=== PATIENT | female | born 1935 | race Caucasian/White ===

== ENCOUNTER → 2016-03-23 | Outpatient (CLI) | payer OTHER ==
[~2016-03-23] MED LIST: ALBU1AER9 INH; ALPR-411 PO; AMLO-114 PO; ANT25 PO; ASPCH81; B-COCAP2 PO; CALC500C70 PO; CEPH500C PO; CLC100 PO; CRF1 PO; CTP1CL PO; GABA-113 PO; GLC5 PO; LISI5TAB3 PO; LSX20 PO; METO100T14 PO; NITR0.4S UT; OMEP40CA PO; SIMV40TA2 PO; TRAM-10 PO; [UNRECOGNIZED DRUG - REMARK] PO
[2016-03-23 17:36] LABS: BASO % 0.2 %; BASO ABS # 0.02 K/uL (0-0.2); COMPLETE YES; EOS % 2.4 %; HEMATOCRIT 37.3 % (37-47); IG% 0.2 %; LYMPH % 28.5 %; LYMPH ABS # 2.57 K/uL (1.2-3.4); MEAN CELL VOLUME 89.7 fL (80-100); MEAN CORPUSCULAR HEMOGLOBIN 29.6 pg (25-34); MEAN PLATELET VOLUME 12.1 fL (7.4-10.4); MONO % 7.2 %; NEUT % 61.5 %; PLATELET COUNT 176 K/uL (130-400); RED BLOOD COUNT 4.16 M/uL (4.2-5.4); WHITE BLOOD COUNT 9.01 K/uL (4.8-10.8)
[2016-03-23 18:04] LABS: AST/SGOT 21 U/L (15-37); BLOOD UREA NITROGEN 31 mg/dl (7-18); CALCIUM 8.9 mg/dl (8.5-10.1); CARBON DIOXIDE 32 mmol/L (21-32); CHLORIDE 103 mmol/L (98-107); GLUCOSE 128 mg/dl (70-99); POTASSIUM 4.3 mmol/L (3.5-5.1); SODIUM 142 mmol/L (136-145)
[2016-03-23 18:05] LABS: URINE APPEARANCE CLOUDY (CLEAR); URINE COLOR DK YELLOW; URINE EPITHELIAL CELL AUTO >30 /lpf (0-5); URINE NITRITE NEG (NEG); URINE SPECIFIC GRAVITY 1.026 (1.000-1.030); UROBILINOGEN NEG (NEG); ZZUR CULT IF INDIC CLEAN CATCH NO
[2016-03-23 18:11] LABS: MANUAL MICROSCOPIC REQUIRED? NO; REVIEW REQ? NO; URINE BILIRUBIN NEG (NEG)
[2016-03-23 18:17] LABS: ALKALINE PHOSPHATASE 67 U/L (45-117); ALT/SGPT 24 U/L (12-78); CHOLESTEROL 123 mg/dl (0-200); CHOLESTEROL/HDL RATIO 2.5; HDL CHOLESTEROL 50 mg/dl; LDL CHOLESTEROL CALCULATED 48 mg/dl; RATIO 8.4 mcg/mg (0-30.0); TRIGLYCERIDES 123 mg/dl (0-150); VERY LOW DENSITY LIPOPROT CALC 25 mg/dl
[2016-03-24 06:53] LABS: ESTIMATED AVERAGE GLUCOSE 148 mg/dl; HA1C FLAG Normal (Normal)
--- NOTE | 2016-03-30 10:01 | CODING QUERY MEDICAL NECESSITY ---
SUPPORTING DIAGNOSIS NEEDED Dr. Sherman, A supporting diagnosis is required for the test/procedure performed on this patient in order for us to be reimbursed by the patient's insurance. Please provide a supporting diagnosis for the following test/procedure listed below next to the test name along with your signature. *If there is no additional diagnosis for this patient that would support the following test/procedure please document that below next to the test/procedure. Test(s)/Procedure(s) that require a supporting diagnosis: * ([id number]) VITAMIN D ASSAY DIAGNOSIS: * ([id number]) B12 VITAMIN LEVEL DIAGNOSIS: DATE OF SERVICE: 03/23/16 Provider Signature: Date: Thank you Jose Grider [facility] Information Management Once completed, please kindly fax back to [phone] For questions please call [phone]
== END | disposition home or self-care (01) ==
LOC: C.LAB1850 15:59
PROVIDERS: ATTEND Internal Medicine
DX: E11.42 Type 2 diabetes mellitus with diabetic polyneuropathy (principal); E78.5 Hyperlipidemia, unspecified; M85.80 Other specified disorders of bone density and structure, unspecified site; G62.9 Polyneuropathy, unspecified

== ENCOUNTER → 2016-07-11 | Outpatient (CLI) | payer OTHER ==
--- NOTE | 2016-07-18 08:24 | CODING QUERY MEDICAL NECESSITY ---
CQSUPPORTING DIAGNOSIS NEEDED A supporting diagnosis is required for the test/procedure performed on this patient in order for us to be reimbursed by the patient's insurance. Please provide a supporting diagnosis for the following test/procedure listed below next to the test name along with your signature. *If there is no additional diagnosis for this patient that would support the following test/procedure please document that below next to the test/procedure. Test(s)/Procedure(s) that require a supporting diagnosis: MACHO 07/11/16 BONE MINERAL DENSITY STUDY Provider Signature: Date: Thank you Adrianna Stout [facility] Information Management Once completed, please kindly fax back to [phone] For questions please call [phone]
== END | disposition home or self-care (01) ==
LOC: C.MAMM 10:34
PROVIDERS: ATTEND Internal Medicine
DX: M85.851 Other specified disorders of bone density and structure, right thigh (principal); M85.852 Other specified disorders of bone density and structure, left thigh

== ENCOUNTER → 2017-01-17 | Outpatient (CLI) | payer OTHER ==
[2017-01-17 17:44] LABS: URINE APPEARANCE TURBID (CLEAR); URINE BILIRUBIN NEG (NEG); URINE COLOR DK YELLOW; URINE EPITHELIAL CELL AUTO >30 /lpf (0-5); URINE NITRITE NEG (NEG); URINE SPECIFIC GRAVITY 1.029 (1.000-1.030); UROBILINOGEN NEG (NEG)
[2017-01-17 17:52] LABS: MANUAL MICROSCOPIC REQUIRED? NO; REVIEW REQ? NO
== END | disposition home or self-care (01) ==
LOC: C.LABBFT 11:10
PROVIDERS: ATTEND Physician Assistant Medical
DX: R32 Unspecified urinary incontinence (principal)

== ENCOUNTER → 2017-03-28 | Outpatient (CLI) | payer OTHER ==
[2017-03-28 17:52] LABS: BASO % 0.2 %; BASO ABS # 0.02 K/uL (0-0.2); EOS % 2.1 %; EOS ABS # 0.18 K/uL (0-0.5); HEMOGLOBIN 13.1 g/dL (12.0-16.0); IG# 0.02 K/uL (0.00-0.02); LYMPH % 24.4 %; MEAN CELL VOLUME 92.2 fL (80-100); MEAN CORPUSCULAR HEMOGLOBIN 30.2 pg (25-34); MEAN CORPUSCULAR HGB CONC 32.8 g/dl (32-36); MEAN PLATELET VOLUME 12.3 fL (7.4-10.4); MONO % 9.4 %; MONO ABS # 0.81 K/uL (0.11-0.59); NEUT % 63.7 %; NEUT ABS # 5.49 K/uL (1.4-6.5); PLATELET COUNT 150 K/uL (130-400); RED CELL DISTRIBUTION WIDTH CV 13.2 % (11.5-14.5); RED CELL DISTRIBUTION WIDTH SD 44.5 fL (36.4-46.3); WHITE BLOOD COUNT 8.62 K/uL (4.8-10.8)
[2017-03-28 18:55] LABS: ALBUMIN 3.5 gm/dl (3.4-5.0); ALT/SGPT 24 U/L (12-78); BLOOD UREA NITROGEN 29 mg/dl (7-18); CALCIUM 9.6 mg/dl (8.5-10.1); CARBON DIOXIDE 32 mmol/L (21-32); CHOLESTEROL 104 mg/dl (0-200); CREATININE 1.03 mg/dl (0.60-1.20); GLUCOSE 153 mg/dl (70-99); POTASSIUM 4.7 mmol/L (3.5-5.1); SODIUM 137 mmol/L (136-145)
[2017-03-28 18:58] LABS: ALKALINE PHOSPHATASE 76 U/L (45-117); AST/SGOT 21 U/L (15-37); LDL CHOLESTEROL CALCULATED 41 mg/dl; TOTAL PROTEIN 7.6 gm/dl (6.4-8.2)
[2017-03-29 06:48] LABS: HEMOGLOBIN A1C 6.8 % (4.5-5.6)
== END | disposition home or self-care (01) ==
LOC: C.LABBFT 12:12
PROVIDERS: ATTEND Internal Medicine
DX: E78.5 Hyperlipidemia, unspecified (principal); M85.80 Other specified disorders of bone density and structure, unspecified site

== ENCOUNTER → 2017-10-04 | Outpatient (CLI) | payer OTHER ==
[~2017-10-04] MED LIST changes: +ALBU18002 INH; -ALBU1AER9 INH; -ALPR-411 PO; -AMLO-114 PO; +AMLO10TA3 PO; -ANT25 PO; -ASPCH81; +ASPI81TA28 PO; +ATOR-22 PO; -B-COCAP2 PO; +B-COTAB18 PO; -CEPH500C PO; +CITA10TA4 PO; -CLC100 PO; -CRF1 PO; -CTP1CL PO; +DOCU-94 PO; -GLC5 PO; -LISI5TAB3 PO; +LOSA1TAB PO; -LSX20 PO; +METF500T5 PO; +MIRA100T PO; +MONT1TAB3 PO; -NITR0.4S UT; -OMEP40CA PO; +PANT40TA PO; -SIMV40TA2 PO; -[UNRECOGNIZED DRUG - REMARK] PO
--- NOTE | 2017-10-04 10:12 | DIAGNOSTIC IMAGING REPORT ---
L-SPINE MIN 4 VIEWS ROUTINE HISTORY: Pain M54.5 Chronic low back painM25.551 Right hip pain COMPARISON: None. FINDINGS: There is no fracture. No subluxation. Considerable degenerative disc change throughout IMPRESSION: Considerable degenerative disc change throughout. No acute process. The above report was generated using voice recognition software. It may contain grammatical, syntax or spelling errors. Electronically signed by: Sonny Harrington M.D. 10/04/2017 10:11 AM Dictated Date/Time: 10/04/2017 10:11 AM
--- NOTE | 2017-10-04 10:20 | DIAGNOSTIC IMAGING REPORT ---
R PELVIS/UNILATERAL HIP 2-3VIEWS CLINICAL HISTORY: BACK PAIN COMPARISON STUDY: None. FINDINGS: No fracture or dislocation within the pelvis or hips. Moderate cartilage space narrowing and the bile hips consistent with degenerative change. There is chondrocalcinosis within the hips. There are also moderate degenerative changes within the bilateral sacroiliac joints. Vascular calcifications are noted. IMPRESSION: 1. No fracture or dislocation within the pelvis or hips. 2. Moderate bilateral hip osteoarthritis. 3. Chondrocalcinosis. Electronically signed by: Daniel Jarrett M.D. 10/04/2017 10:19 AM Dictated Date/Time: 10/04/2017 10:04 AM
== END | disposition home or self-care (01) ==
LOC: C.RAD1850 09:44
PROVIDERS: ATTEND Physician Assistant Medical
DX: M16.0 Bilateral primary osteoarthritis of hip (principal); M11.259 Other chondrocalcinosis, unspecified hip; M47.816 Spondylosis without myelopathy or radiculopathy, lumbar region

== ENCOUNTER 2018-05-19 21:07 | Inpatient (IN) ==
--- NOTE | 2018-05-19 22:34 | XRay Report ---
RIGHT ANKLE 3 VIEWS CLINICAL HISTORY: Fall with right ankle injury. FINDINGS: 3 views of the right ankle are obtained. No prior studies are available for comparison at t he time of dictation. The skeletal structures are osteopenic. There is a minimally distracted fractur e of the medial malleolus. There is also a mildly distracted spiral fracture of the distal fibular sh aft. The ankle joint appears maintained. There is a joint effusion, and soft tissue edema is present around the ankle. Atherosclerotic calcification is noted in the regional arteries. There are large do rsal and plantar calcaneal enthesophytes. Degenerative spurring is seen along the dorsal aspect of th e tarsal bones. IMPRESSION: Bimalleolar fractures as above with associated joint effusion and soft tissue swelling. Electronically signed by: Ravi Schwarz M.D. 05/19/2018 10:32 PM
--- NOTE | 2018-05-19 22:37 | XRay Report ---
RIGHT FOOT 3 VIEWS CLINICAL HISTORY: Fall with right foot injury. FINDINGS: 3 views of the right foot are obtained. No prior studies are available for comparison at th e time of dictation. The skeletal structures are osteopenic. There is no radiographic evidence of rig ht foot fracture. Bimalleolar ankle fractures are partially imaged with soft tissue swelling in the f oot and ankle. There is an ankle joint effusion. Large dorsal and plantar calcaneal enthesophytes are observed. There is mild degenerative spurring along the dorsal aspect of the tarsal bones. Mild arth ritic change is noted at the first metatarsophalangeal joint. There is atherosclerotic calcification of the regional arteries. IMPRESSION: 1. Bimalleolar ankle fractures are noted. 2. Soft tissue swelling with no fracture seen in the right foot. 3. Osteopenia, heel spurs, and mild degenerative change as above. Electronically signed by: Ravi Schwarz M.D. 05/19/2018 10:35 PM
[2018-05-19] MEDS ORDERED: OXYCODONE/ACETAMINOPHEN 5mg/325mg TAB PO STA (23:54)
--- NOTE | 2018-05-20 00:14 | Emergency Department Note ---
Entered by Rodney Claros acting as a scribe for Sharif Danielle DO History of Present Illness General Chief complaint: Fall Stated complaint: FALL, ANKLE PAIN Time Seen by Provider: 05/19/18 21:54 Source: patient History of Present Illness Onset (ago): hour(s) 2 Location: ankle (fall) Pain Consistency: + other (episodes) Maximum Pain Intensity: 3 Relieved By: + none Associated symptoms: + denies other symptoms (head pain, neck pain) and + other (right ankle pain, dizziness) The patient is a 82 year old F who presents to the Emergency Room with complaints of episodes of falls that occurred 2 hours ago. She notes that she lives alone at a half-way apartment. She adds that there are no assistants there to help her. She states that she was getting onto a stool to get into bed and fell backwards. She notes that she was feeling dizzy before this episode occurred. She denies hitting her head or neck during this episode. She notes that after she got up from the floor, she tried to get into bed again and fell again. She states that she is currently experiencing right ankle pain. She notes that she has a history of sciatic nerve pain. Home Medications Home Medications Medication Instructions Recorded Confirmed Type albuterol sulfate HFA 90 2 puffs INH Q6H PRN 11/28/17 05/19/18 History mcg/actuation aerosol inhaler amlodipine 10 mg tablet 10 mg PO DAILY 11/28/17 05/19/18 History aspirin 81 mg tablet,delayed 81 mg PO DAILY 11/28/17 05/19/18 History release atorvastatin 20 mg tablet 20 mg PO DAILY 11/28/17 05/19/18 History calcium carbonate 600 mg (1,500 1 tab PO DAILY 11/28/17 05/19/18 History mg)-vitamin D3 200 unit tablet docusate sodium 100 mg capsule 100 mg PO QPM cap 11/28/17 05/19/18 History docusate sodium 100 mg capsule 200 mg PO QAM cap 11/28/17 05/19/18 History gabapentin 300 mg capsule 300 mg PO BID 11/28/17 05/19/18 History losartan 25 mg tablet 25 mg PO DAILY 11/28/17 05/19/18 History metformin 500 mg tablet 500 mg PO DAILY tab 11/28/17 05/19/18 History metoprolol tartrate 100 mg tablet 100 mg PO BID 11/28/17 05/19/18 History mirabegron ER 25 mg 25 mg PO DAILY 11/28/17 05/19/18 History tablet,extended release 24 hr montelukast 10 mg tablet 10 mg PO QPM 11/28/17 05/19/18 History pantoprazole 40 mg tablet,delayed 40 mg PO DAILY 11/28/17 05/19/18 History release tramadol 50 mg tablet 50 mg PO TID PRN tab 11/28/17 05/19/18 History vitamin B complex tablet 1 tab PO DAILY 11/28/17 05/19/18 History Zay's Leg Cramp 1 tab PO HS 01/11/18 05/19/18 History uxexaylb-ykgh-jva-folic acid [One 1 tab PO DAILY 01/11/18 05/19/18 History Daily For Women] naproxen sodium [Aleve] 220 mg PO DIRECTED PRN 01/11/18 05/19/18 History duloxetine 60 mg capsule,delayed 60 mg PO DAILY #30 cap 01/17/18 05/19/18 Rx release Allergies Allergy/AdvReac Type Severity Reaction Status Date / Time azelastine Allergy Intermediate elevated bp Verified 05/19/18 22:30 mivacurium Allergy Mild RASH Verified 05/19/18 22:30 citalopram Allergy Unknown UNKNOWN Verified 05/19/18 22:30 chlorpheniramine AdvReac Intermediate ELEVATED BP Verified 05/19/18 22:30 Corticosteroids AdvReac Intermediate ELEVATED BP Verified 05/19/18 22:30 (Glucocorticoids) fexofenadine AdvReac Intermediate ELEVATED BP Verified 05/19/18 22:30 fluticasone AdvReac Intermediate ELEVATED BP Verified 05/19/18 22:30 hydrocodone AdvReac Intermediate ELEVATED BP Verified 05/19/18 22:30 magnesium salicylate AdvReac Intermediate ELEVATED BP Verified 05/19/18 22:30 salicylates AdvReac Intermediate ELEVATED BP Verified 05/19/18 22:30 Past Med/Surg History Medical History Sciatic nerve pain (Chronic) Anxiety (Chronic) Arthritis (Chronic) Asthma (Chronic) CAD (coronary artery disease) (Chronic) Cataract (Chronic) Diabetes (Chronic) Diabetic neuropathy (Chronic) Hypertension (Chronic) Kidney disease (Chronic) Lumbago (Chronic) Surgical History Hx laparoscopic cholecystectomy Hx of tubal ligation Social History marital status: / marital status details: dmitriy Current Living Situation: Alone current occupational status: retired Feels Safe at Home: Yes Smoking Status: Never smoker Hx Alcohol Use: No Hx Substance Use: No Review of Systems See HPI for pertinent positives & negatives. and A total of 10 systems reviewed and were otherwise negative Physical Exam Vital Signs Vital Signs - 24 hr 05/19/18 21:13 Sepsis Recent Fever Within 48 Hours No Sepsis New/Unexplained Change in Mental Status No Sepsis Action Taken by Nursing No Action Required Pulse Rate 65 Respiratory Rate 18 Respiratory Effort / Characteristics Non-Labored Spontaneous Respiratory Depth Normal Respiratory Pattern Regular Blood Pressure 178/94 H Blood Pressure Mean 122 Blood Pressure Position Lying Pulse Oximetry 92 Oxygen Delivery Method Room Air CONSTITUTIONAL/VITAL SIGNS: Reviewed / noted above. GENERAL: Non-toxic in appearance. INTEGUMENTARY: Warm, dry, and [place]. HEAD: Normocephalic. EYES: without scleral icterus or trauma. ENT/OROPHARYNX: clear and moist. LYMPHADENOPATHY/NECK: Is supple without lymphadenopathy or meningismus. RESPIRATORY: Lungs clear and equal. CARDIOVASCULAR: Regular rate and rhythm. GI/ABDOMEN: Soft and nontender. No organomegaly or pulsatile mass. No rebound or guarding. Normal bowel sounds. EXTREMITIES: Warm and well perfused. Tenderness to palpation right foot and ankle. BACK: No CVA tenderness. NEUROLOGICAL: Intact without focal deficits. PSYCHIATRIC: normal affect. MUSCULOSKELETAL: Normally developed with good muscle tone. Course 2200: Past medical records reviewed. The patient was evaluated in room D2, and a complete history and physical examination were performed. 2310: I reviewed the patient's case with Dr. Salas, [facility] [place]. He states that the patient does not need to be admitted for surgery. 2356: I reviewed the patient's case with Dr. Melissa Cohen, [facility] Hospitalist. She will evaluate the patient for further management. Consultations Consultation #1: I reviewed the patient's case with Dr. Salas, [facility]. He states that the patient does not need to be admitted for surgery. Time: 23:10 Consultation #2: I reviewed the patient's case with Dr. Melissa Cohen, [facility] Hospitalist. She will evaluate the patient for further management. Time: 23:56 Medical Decision Making Differential Diagnosis Differential diagnosis: Etiologies such as fracture, dislocation, neurovascular compromise, compartment syndrome, soft tissue injury, as well as others were entertained. Medical Records Attestation: I reviewed the patient's medical records. Home Medications Current Medication List: was personally reviewed by me Imaging Data Radiologist's Impression: Radiology results as stated below per my review and the radiologist's interpretation: RIGHT FOOT 3 VIEWS CLINICAL HISTORY: Fall with right foot injury. FINDINGS: 3 views of the right foot are obtained. No prior studies are available for comparison at the time of dictation. The skeletal structures are osteopenic. There is no radiographic evidence of right foot fracture. Bimalleolar ankle fractures are partially imaged with soft tissue swelling in the foot and ankle. There is an ankle joint effusion. Large dorsal and plantar calcaneal enthesophytes are observed. There is mild degenerative spurring along the dorsal aspect of the tarsal bones. Mild arthritic change is noted at the first metatarsophalangeal joint. There is atherosclerotic calcification of the regional arteries. IMPRESSION: 1. Bimalleolar ankle fractures are noted. 2. Soft tissue swelling with no fracture seen in the right foot. 3. Osteopenia, heel spurs, and mild degenerative change as above. Electronically signed by: Ravi Schwarz M.D. 05/19/2018 10:35 PM RIGHT ANKLE 3 VIEWS CLINICAL HISTORY: Fall with right ankle injury. FINDINGS: 3 views of the right ankle are obtained. No prior studies are available for comparison at the time of dictation. The skeletal structures are osteopenic. There is a minimally distracted fracture of the medial malleolus. There is also a mildly distracted spiral fracture of the distal fibular shaft. The ankle joint appears maintained. There is a joint effusion, and soft tissue edema is present around the ankle. Atherosclerotic calcification is noted in the regional arteries. There are large dorsal and plantar calcaneal enthesophytes. Degenerative spurring is seen along the dorsal aspect of the tarsal bones. IMPRESSION: Bimalleolar fractures as above with associated joint effusion and soft tissue swelling. Electronically signed by: Ravi Schwarz M.D. 05/19/2018 10:32 PM Blood Pressure Blood Pressure Findings: Elevated blood pressure Blood Pressure Disposition: further management by hospitalist MDM Narrative This is a 82-year-old female who presents to the ED with a chief complaint of right ankle pain. The patient states that she was getting into her bed and has to climb a stool to get into bed. She states that she lost her ankle and fell. She injured her right ankle. She states that she was dizzy when she got back up. She was brought in by EMS. Her exam reveals some tenderness in the right ankle and foot area. The patient denies any other symptoms and denies striking her head. She denies loss of consciousness the patient does report some recent problems with sciatica in her left leg. She states that the medication that she has been prescribed by her PCP has not been helping. They did recommend an injection but she states that she did not get this because she was fearful. The patient does not feel she is able to go home because of her pain and weakness. She lives alone in a elderly housing apartment complex. The patient's x-ray of her foot and ankle reveals a bimalleolar ankle fracture. I spoke with orthopedics, Dr. Salas. He does not feel the patient requires admission but can have this repaired as an outpatient. Because of the patient's inability to get around with her ankle fracture and limited support at home, the patient was seen by case management for possible placement at [facility]. There are no beds available there. The patient will be kept here for inpatient care. She was placed in a right ankle posterior and sugar tong splint. She was given a Percocet for her pain. She will be seen by the hospitalist for further ev aluation and care. Impression & Plan Bimalleolar fracture of right ankle, Weak, Ambulatory dysfunction Discharge Plan Visit Data Chief Complaint: Fall Stated Complaint: FALL, ANKLE PAIN ED Provider: Sharif Danielle Discharge Problem: Bimalleolar fracture of right ankle, Weak, Ambulatory dysfunction Patient Disposition: Admitted As Inpatient Forms Stand Alone Forms: My [facility] [employer] Prescriptions Prescriptions: No Action duloxetine [Cymbalta] 60 mg capsule,delayed release(DR/EC) 60 mg PO DAILY Qty: 30 RF: 1 atorvastatin [Lipitor] 20 mg tablet 20 mg PO DAILY RF: 0 calcium carbonate-vitamin D3 [Calcium 600 with Vitamin D3] 600 mg(1,500mg) - 200 unit tablet 1 tab PO DAILY RF: 0 aspirin [Adult Aspirin Regimen] 81 mg tablet,delayed release (DR/EC) 81 mg PO DAILY RF: 0 amlodipine [Norvasc] 10 mg tablet 10 mg PO DAILY RF: 0 docusate sodium [Colace] 100 mg capsule 100 mg PO QPM RF: 0 vitamin B complex tablet 1 tab PO DAILY RF: 0 albuterol sulfate 90 mcg/actuation HFA aerosol inhaler 2 puffs INH Q6H PRN (Reason: Shortness Of Breath Or Wheezing) RF: 0 metformin [Glucophage] 500 mg tablet 500 mg PO DAILY RF: 0 metoprolol tartrate [Lopressor] 100 mg tablet 100 mg PO BID RF: 0 tramadol 50 mg tablet 50 mg PO TID PRN (Reason: pain) RF: 0 pantoprazole [Protonix] 40 mg tablet,delayed release (DR/EC) 40 mg PO DAILY RF: 0 losartan [Cozaar] 25 mg tablet 25 mg PO DAILY RF: 0 docusate sodium [Colace] 100 mg capsule 200 mg PO QAM RF: 0 gabapentin 300 mg capsule 300 mg PO BID RF: 0 montelukast [Singulair] 10 mg tablet 10 mg PO QPM RF: 0 mirabegron [Myrbetriq] 25 mg tablet extended release 24 hr 25 mg PO DAILY RF: 0 naproxen sodium [Aleve] 220 mg Tablet 220 mg PO DIRECTED PRN (Reason: Pain) RF: 0 One Daily For Women 18-0.4 mg Tablet 1 tab PO DAILY RF: 0 Zay's Leg Cramp 1 tab PO HS RF: 0 Referrals Referrals: Ramirez Sherman MD [Primary Care Provider] - The priscilla's documentation has been prepared under my direction and personally reviewed by me in its entirety. I confirm that the note above accurately reflects all work, treatment, procedures, and medical decision making performed by me.
--- NOTE | 2018-05-20 01:35 | History & Physical Report ---
Date of Service May 20, 2018 Assessment & Plan (1) Bimalleolar fracture of right ankle: 82-year-old female here for right ankle fracture. Endorses some positional presyncopal symptoms, likely consistent with orthostatic hypotension. Has been told by her PCP in the past to get up slowly. Is on 3 different blood pressure medicines. Uses a walker normally. -MedSurg -Seen by Ortho in the ED, nonsurgical candidate at this time, plan for inpatient rehab. -Pain control continue home tramadol, add 0.25 mg IV Dilaudid for breakthrough pain. -A.m. labs to include CBC, BMP, TSH. -PT OT FEN/GI: No fluids indicated at this time. Heart healthy, diabetic diet. Uses dentures, will need soft foods until she can get her dentures. DVT ppx: Lovenox every 24 CODE STATUS: DNR/DNI as discussed with patient DISPO: MedSurg, PT OT pending, inpatient rehab. (2) Chronic lumbar pain: Sees [facility] pain management in the outpatient setting. Consistent with sciatic pain in the left hip. -Continue home tramadol. Add 0.25 mg IV Dilaudid for breakthrough pain. PT OT. (3) Benign essential hypertension: Elevated blood pressure in the ED likely consistent with situational stress from her pain. -Continue home amlodipine 10 mg daily, losartan 25 mg daily, metoprolol 100 mg twice daily. -May benefit from orthostatic vital signs. Encourage p.o. fluids. (4) Hyperlipidemia: Continue home atorvastatin 20 mg daily. (5) Urinary incontinence: -Continue home mirabegron ER 25 mg daily (6) GERD (gastroesophageal reflux disease): Continue home pantoprazole 40 mg daily. (7) Type 2 diabetes mellitus: No acute issues. Continue home metformin, diabetic diet. -Last A1c 09/15/2017 was 6.4. History of Present Illness Chief Complaint: Ankle fracture Primary Care Provider: Boogie Sherman MD 82-year-old female who presents with ankle fracture. Her past medical history includes hypertension and type 2 diabetes. As well as sciatic pain, followed by pain management. She states she was in her usual state of health when earlier this evening she went to step up on a stool in order to get into her bed missed her footing, and reached out for something to grab hold and there was nothing there. She fell to the floor. She recalls every moment of the event. She called EMS and was brought in. On imaging she was found to have bimalleolar fractures of the right ankle. She was given Percocet. She will need a 3 night stay in order to qualify for inpatient rehab as they have no met beds right now. Her sciatic pain has been troublesome for her. Tramadol apparently does not help. She was recommended by pain management for a joint injection which she declined. Although she states she would be willing to try this at this point given the amount of pain in her left anterior thigh that radiates down her leg. She also endorses a 1-1 1/2-week history of dizziness upon going from lying to sitting or sitting to standing. She states she has been told in the past to get up slowly. She states she does feel somewhat dry at this point but she says if she drinks too much water than she urinates. She is incontinent. She wears pads for this. Allergies Allergy/AdvReac Type Severity Reaction Status Date / Time azelastine Allergy Intermediate elevated bp Verified 05/19/18 22:30 mivacurium Allergy Mild RASH Verified 05/19/18 22:30 citalopram Allergy Unknown UNKNOWN Verified 05/19/18 22:30 chlorpheniramine AdvReac Intermediate ELEVATED BP Verified 05/19/18 22:30 Corticosteroids AdvReac Intermediate ELEVATED BP Verified 05/19/18 22:30 (Glucocorticoids) fexofenadine AdvReac Intermediate ELEVATED BP Verified 05/19/18 22:30 fluticasone AdvReac Intermediate ELEVATED BP Verified 05/19/18 22:30 hydrocodone AdvReac Intermediate ELEVATED BP Verified 05/19/18 22:30 magnesium salicylate AdvReac Intermediate ELEVATED BP Verified 05/19/18 22:30 salicylates AdvReac Intermediate ELEVATED BP Verified 05/19/18 22:30 Home Medications Home Medications Medication Instructions Recorded Confirmed Type albuterol sulfate HFA 90 2 puffs INH Q6H PRN 11/28/17 05/19/18 History mcg/actuation aerosol inhaler amlodipine 10 mg tablet 10 mg PO DAILY 11/28/17 05/19/18 History aspirin 81 mg tablet,delayed 81 mg PO DAILY 11/28/17 05/19/18 History release atorvastatin 20 mg tablet 20 mg PO DAILY 11/28/17 05/19/18 History calcium carbonate 600 mg (1,500 1 tab PO DAILY 11/28/17 05/19/18 History mg)-vitamin D3 200 unit tablet docusate sodium 100 mg capsule 100 mg PO QPM cap 11/28/17 05/19/18 History docusate sodium 100 mg capsule 200 mg PO QAM cap 11/28/17 05/19/18 History gabapentin 300 mg capsule 300 mg PO BID 11/28/17 05/19/18 History losartan 25 mg tablet 25 mg PO DAILY 11/28/17 05/19/18 History metformin 500 mg tablet 500 mg PO DAILY tab 11/28/17 05/19/18 History metoprolol tartrate 100 mg tablet 100 mg PO BID 11/28/17 05/19/18 History mirabegron ER 25 mg 25 mg PO DAILY 11/28/17 05/19/18 History tablet,extended release 24 hr montelukast 10 mg tablet 10 mg PO QPM 11/28/17 05/19/18 History pantoprazole 40 mg tablet,delayed 40 mg PO DAILY 11/28/17 05/19/18 History release tramadol 50 mg tablet 50 mg PO TID PRN tab 11/28/17 05/19/18 History vitamin B complex tablet 1 tab PO DAILY 11/28/17 05/19/18 History Zay's Leg Cramp 1 tab PO HS 01/11/18 05/19/18 History nxqriayh-gicv-sck-folic acid [One 1 tab PO DAILY 01/11/18 05/19/18 History Daily For Women] naproxen sodium [Aleve] 220 mg PO DIRECTED PRN 01/11/18 05/19/18 History duloxetine 60 mg capsule,delayed 60 mg PO DAILY #30 cap 01/17/18 05/19/18 Rx release Past Med/Surg History Medical History Sciatic nerve pain (Chronic) Anxiety (Chronic) Arthritis (Chronic) Asthma (Chronic) CAD (coronary artery disease) (Chronic) Cataract (Chronic) Diabetes (Chronic) Diabetic neuropathy (Chronic) Hypertension (Chronic) Kidney disease (Chronic) Lumbago (Chronic) Surgical History Hx laparoscopic cholecystectomy Hx of tubal ligation Family History Other Cancer Social History Preferred Language: Bangladeshi Communication Ability: Effective Comfort Station Supervisor Required: No Beliefs That Will Affect Care: None marital status: / marital status details: dmitriy Current Living Situation: Alone current occupational status: retired Other Information That Helps Us Care for You: No Feels Safe at Home: Yes Safety Concerns: Feels Safe At This Time Smoking Status: Never smoker Hx Alcohol Use: No Hx Substance Use: No Review of Systems All systems reviewed & are unremarkable except as noted in HPI & below (Denies chest pain or difficulty breathing. No abdominal pain. Sciatic pain as above.) Physical Exam Vital Signs (Past 24 Hours): Last Vital Signs Pulse 72 05/20/18 00:35 Resp 20 05/20/18 00:35 BP 222/80 H 05/20/18 00:35 Pulse Ox 92 05/20/18 00:35 Physical Exam: Vitals noted as above and within normal limits with the exception of hypertension. GENERAL: Awake, alert to person, place, and time, nontoxic-appearing, in no distress HENT: Normocephalic, atraumatic. . Mucus membranes appear dry. EYES: Normal conjunctiva. Sclera non-icteric. EOMI. NECK: Supple. Full range of motion. No JVD RESPIRATORY: Clear to auscultation. Normal work of breathing. CARDIAC: Regular rate, normal rhythm. Extremities warm and well perfused, 2+ radial pulses bilaterally; . ABDOMEN: Soft, non-distended. Bowel sounds are normal. LOWER EXTREMITIES: Inspection of calves reveal cast over right ankle up to the knee, intact. No edema. No discoloration. Neurovascularly intact bilaterally. NEURO: No focal gross focal motor deficits noted. Sensation in tact. CN II-XII grossly in tact. SKIN: Rash not present. No jaundice noted. Significant lesions include senile purpura. PSYCH: Appropriate mood and affect. Cooperative. Exam as done by Lillie Melgoza MD, Garment Supervisor. Supervising Physician Co-Signing Physician Notes Patient seen and examined, chart reviewed, case discussed with Dr. Melgoza and I agree with her assessment and plan as documented above. . Briefly, patient is an 82yo female with HTN, HLP s/p mechanical fall with bimaleolar fracture of right ankle. Pain presently well controlled. No complaints Exam: patient hypertensive otherwise HD stable, NAD Skin: intact HEENT: NC/AT, PERRL, EOMI, MMM, neck supple, no JVD Heart: +S1/S2, regular, no m/r/g Lungs: CTA, no rales/rhonchi/wheezes Abd: +BS, soft, NT/ND Ext: right ankle in cast. Toes warm, 2+ pulses, sensation and mobility intact Labs and images reviewed. Assessment/Plan: Admit to medical floor. Pain management. PT/OT and Case management consults for placement needs. Remainder of plan as above Resident Activity Tracking Resident Involvement: Resident Care Provided Care Provided: [facility] (1) Bimalleolar fracture of right ankle Encounter type: initial encounter Fracture type: closed Qualified Code(s): S82.841A - Displaced bimalleolar fracture of right lower leg, initial encounter for closed fracture
[2018-05-20] MEDS ORDERED: HydrALAZINE HCL 20 MG/ML VIAL IV ONE (01:59)
[2018-05-20] MEDS ORDERED: MAGNESIUM HYDROXIDE SUSP 30 ML UDC PO PRN (02:24)
[2018-05-20] MEDS ORDERED: POLYETHYLENE (MIRALAX) 17 GM PACK PO PRN (02:24)
[2018-05-20] MEDS ORDERED: HYDROmorphone INJ 0.5 MG/0.5 ML SYR IV PRN (02:24)
[2018-05-20] MEDS ORDERED: ALBUTEROL HFA 8 GM INHALER INH PRN (02:24)
[2018-05-20] MEDS ORDERED: ALUMINUM/MAGNESIUM SUSP 30 ML UDC PO PRN (02:24)
[2018-05-20 03:32] LABS: Creatinine Clr Calc Pharmacy 49.7 ml/min; Est GFR (African American) 70.9; Est GFR (Non-African American) 61.2
[2018-05-20] MEDS: ACETAMINOPHEN 325 MG TAB PO PRN (05:32)
[2018-05-20] MEDS: TRAMADOL HCL 50 MG TABLET PO PRN (05:33)
[2018-05-20 07:26] LABS: Hematocrit (blood only) 38.9 % (37-47); Hemoglobin 12.8 g/dL (12.0-16.0); Mean Corpuscular Hgb Conc 32.9 g/dL (32-36); Mean Corpuscular Volume 93.1 fL (80-100); Mean Platelet Volume 11.4 fL (7.4-10.4); Platelet Count 135 K/uL (130-400); RDW Coefficient of Variation 13.7 % (11.5-14.5); RDW Standard Deviation 46.9 fL (36.4-46.3); Red Blood Count 4.18 M/uL (4.2-5.4); White Blood Count 11.61 K/uL (4.8-10.8)
[2018-05-20 07:50] LABS: Prothrombin Time 10.6 Seconds (9.0-12.0)
[2018-05-20 08:56] LABS: BUN Creatinine Ratio 35.6 (10-20); Creatinine Clr Calc Pharmacy 53.3 ml/min; Est GFR (African American) 77.2; Est GFR (Non-African American) 66.6; Potassium 4.2 mmol/L (3.5-5.1)
[2018-05-20] MEDS: ATORVASTATIN 20 MG TAB PO SCH (09:13)
[2018-05-20] MEDS: LOSARTAN POTASSIUM 25 MG TAB PO SCH (09:13)
[2018-05-20] MEDS: PANTOprazole 40 MG TAB PO SCH (09:13)
[2018-05-20] MEDS: CALCIUM 600MG + VIT D 400 IU TAB PO SCH (09:13)
[2018-05-20] MEDS: MIRABEGRON ER 25 MG TAB PO SCH (09:13)
[2018-05-20] MEDS: AMLODIPINE BESYLATE 5 MG TAB PO SCH (09:13)
[2018-05-20] MEDS: ASPIRIN 81 MG ECTAB PO SCH (09:13)
[2018-05-20] MEDS: GABAPENTIN 300 MG CAP PO SCH ×2 (09:13→20:12)
[2018-05-20] MEDS: METFORMIN HCL 500 MG TAB PO SCH (09:13)
[2018-05-20] MEDS: DOCUSATE SODIUM 100 MG CAP PO SCH ×2 (09:14→20:12)
[2018-05-20] MEDS: METOPROLOL TARTRATE 100 MG TAB PO SCH ×2 (09:14→20:13)
[2018-05-20] MEDS: DULOXETINE HCL 60 MG CAP PO SCH (09:14)
[2018-05-20] MEDS ORDERED: NYSTATIN POWDER 15GM BTL EXT PRN (09:44)
[2018-05-20] MEDS: ENOXAPARIN INJ 40 MG/0.4 ML SYR SQ SCH (10:15)
--- NOTE | 2018-05-20 14:15 | Hospitalist Progress Note ---
Date of Service May 20, 2018 Assessment & Plan (1) Bimalleolar fracture of right ankle: - Presented with right ankle fracture following fall at home; fall may be related to pre-syncope/orthostatic hypotension. - Ankle XR showed bimalleolar fractures with associated joint effusion and soft tissue swelling. - Pain control with home tramadol prn; added Dilaudid IV prn. -placed in splint in ER -Consult Ortho for further evaluation and recommendations for treatment, weight bearing status, etc. - PT/OT -- will be discharged to rehab pending placement. (2) Chronic lumbar pain: - Related to sciatica. - Continue Cymbalta 60 mg PO daily and Gabapentin 300 mg BID. - Continue home Tramadol prn pain; added Dilaudid q4hr prn. - Sees [facility] pain management in outpatient setting. (3) Coronary artery disease: - Placement of drug eluting stent in the LAD in 2009 following anterior septal wall OR in May 2009. - Continue statin, beta nel and aspirin as prescribed. (4) Benign essential hypertension: - Continue home Amlodipine 10 mg daily, Losartan 25 mg daily and Metoprolol 100 mg BID. - Will obtain orthostatic vital signs due to dizziness at home. - BP has been elevated as inpatient; will add Hydralazine 10 mg IV q6hr prn SBP >180. (5) Hyperlipidemia: - Continue Lipitor 20 mg daily. (6) Chronic diastolic heart failure: - Echo in Nov 2017 showed EF 50-55%, mild LVH, trace aortic regurg, trace pulmonic regurg and trace tricupsid regurg. - Monitor net I/O's and daily weights. - Continue BB as prescribed. (7) Cerebrovascular disease: - Per previous cardiology note, concern for old left parietal stroke on CT scan in 2007. (8) Carotid stenosis: - Last carotid doppler in Mar 2016. - Continue aspirin, statin and BP meds. - Will need recheck doppler in Feb 2019 per outpatient notes. (9) Type 2 diabetes mellitus: - Continue home Metformin 500 mg PO daily. - Hemoglobin A1C is pending. -with hyperglycemia today into the 200s--> add SSI (10) Osteopenia: - DEXA scan in July 2016. - Monitor Vit D levels as outpatient. (11) Urinary incontinence: - Continue Myrbetriq as prescribed. (12) GERD (gastroesophageal reflux disease): - Has history of peptic ulcer disease and esophageal stricture s/p di lation in the past. - PPI PO daily. (13) Anxiety: - Continue Duloxetine as prescribed. (14) Allergic rhinitis: - Singulair 10 mg daily. (15) DVT prophylaxis: - Lovenox 40 mg subQ q24hr. Dispo: Med/surg for PT/OT, rehab placement. Supervising Physician Co-Signing Physician Notes PA Supervision Note: I did not personally see or examine the patient today, but I verified all hudson points of AMBER Santiago's assessment and plan with the following exceptions/additions: added SSI for hyperglycemia Subjective Pt. is stable overall today. She has right ankle pain, stable with pain medications. Ordered PT/OT -- plan to discharge to rehab following 3 midnight stay. Complains of pain related to sciatica. Denies dizziness this morning but does have intermittent dizziness at home with standing. Will obtain orthostatic vital signs -- BP has been elevated at rest and fluctuating overall. Review of Systems All systems reviewed & are unremarkable except as noted in HPI & below Constitutional: + fatigue and + weakness; no fever, no chills and no anorexia Respiratory: no cough and no dyspnea Cardiovascular: + lightheadedness (At home ); no chest pain, no palpitations, no syncope and no edema Gastrointestinal: no abdominal pain, no nausea and no constipation Genitourinary (Female): no difficulty urinating Musculoskeletal: + back pain (Sciatica), + joint pain and + stiffness (Right ankle ); no body aches Neurologic: + radiating pain Allergy / Immunological: no rash Physical Exam Vital Signs (Past 24 Hours): Last Vital Signs Temp 37 C 05/20/18 12:00 Pulse 70 05/20/18 12:00 Resp 16 05/20/18 12:00 BP 163/69 H 05/20/18 12:00 Pulse Ox 92 05/20/18 12:00 Physical Exam: General: Chronically ill appearing elderly female. HEENT: NC/AT; PERRLA with EOMI; Harlan conjunctiva, MMM. Neck: Supple and nontender Cardiac: RRR Lungs: CTA bilaterally Abdomen: Bowel normoactive X 4; Nontender to palpation Extremities: Warm. Dressing intact on right ankle, did not visualize site. Intact to light sensation over right foot. Neuro: No focal weakness Skin: No rash Results & Data Laboratory Results 05/20/18 05/20/18 05/20/18 Range/Units 12:12 08:26 07:17 WBC (4.8-10.8) K/uL RBC (4.2-5.4) M/uL Hgb (12.0-16.0) g/dL Hct (37-47) % MCV (80-100) fL MCH (25-34) pg MCHC (32-36) g/dL RDW Std Deviation (36.4-46.3) fL RDW Coeff of Rakesh (11.5-14.5) % Plt Count (130-400) K/uL MPV (7.4-10.4) fL PT (9.0-12.0) Seconds INR (0.9-1.1) Sodium (136-145) mmol/L Potassium (3.5-5.1) mmol/L Chloride (98-107) mmol/L Carbon Dioxide (21-32) mmol/L Anion Gap (3-11) BUN (7-18) mg/dl Creatinine (0.6-1.2) mg/dl Est Cr Clr Drug Dosing ml/min Est GFR ( Amer) Est GFR (Non-Af Amer) BUN/Creatinine Ratio (10-20) Glucose (70-99) mg/dl POC Glucose 212 H 184 H (70-99) Estimat Average Glucose Pending Hemoglobin A1c Pending Calcium (8.5-10.1) mg/dl TSH (0.300-4.500) uIu/ml 05/20/18 05/20/18 05/20/18 Range/Units 07:17 07:17 07:17 WBC 11.61 H (4.8-10.8) K/uL RBC 4.18 L (4.2-5.4) M/uL Hgb 12.8 (12.0-16.0) g/dL Hct 38.9 (37-47) % MCV 93.1 (80-100) fL MCH 30.6 (25-34) pg MCHC 32.9 (32-36) g/dL RDW Std Deviation 46.9 H (36.4-46.3) fL RDW Coeff of Rakesh 13.7 (11.5-14.5) % Plt Count 135 (130-400) K/uL MPV 11.4 H (7.4-10.4) fL PT 10.6 (9.0-12.0) Seconds INR 1.0 (0.9-1.1) Sodium 141 (136-145) mmol/L Potassium 4.2 (3.5-5.1) mmol/L Chloride 105 (98-107) mmol/L Carbon Dioxide 34 H (21-32) mmol/L Anion Gap 2.0 L (3-11) BUN 30 H (7-18) mg/dl Creatinine 0.83 (0.6-1.2) mg/dl Est Cr Clr Drug Dosing 53.3 ml/min Est GFR ( Amer) 77.2 Est GFR (Non-Af Amer) 66.6 BUN/Creatinine Ratio 35.6 H (10-20) Glucose 159 H (70-99) mg/dl POC Glucose (70-99) Estimat Average Glucose Hemoglobin A1c Calcium 9.0 (8.5-10.1) mg/dl TSH 1.340 (0.300-4.500) uIu/ml 05/20/18 05/20/18 Range/Units 02:47 01:35 WBC (4.8-10.8) K/uL RBC (4.2-5.4) M/uL Hgb (12.0-16.0) g/dL Hct (37-47) % MCV (80-100) fL MCH (25-34) pg MCHC (32-36) g/dL RDW Std Deviation (36.4-46.3) fL RDW Coeff of Rakesh (11.5-14.5) % Plt Count (130-400) K/uL MPV (7.4-10.4) fL PT (9.0-12.0) Seconds INR (0.9-1.1) Sodium (136-145) mmol/L Potassium (3.5-5.1) mmol/L Chloride (98-107) mmol/L Carbon Dioxide (21-32) mmol/L Anion Gap (3-11) BUN (7-18) mg/dl Creatinine 0.89 (0.6-1.2) mg/dl Est Cr Clr Drug Dosing 49.7 ml/min Est GFR ( Amer) 70.9 Est GFR (Non-Af Amer) 61.2 BUN/Creatinine Ratio (10-20) Glucose (70-99) mg/dl POC Glucose 161 H (70-99) Estimat Average Glucose Hemoglobin A1c Calcium (8.5-10.1) mg/dl TSH (0.300-4.500) uIu/ml (1) Bimalleolar fracture of right ankle Encounter type: initial encounter Fracture type: closed Qualified Code(s): S82.841A - Displaced bimalleolar fracture of right lower leg, initial encounter for closed fracture
[2018-05-20] MEDS: NYSTATIN POWDER 15GM BTL EXT SCH (20:12)
[2018-05-20] MEDS: MONTELUKAST SODIUM 10 MG TABLET PO SCH (20:12)
[2018-05-20] MEDS ORDERED: [UNRECOGNIZED DRUG - OTHER] PO SCH (21:00)
[2018-05-20] MEDS ORDERED: CARBOHYDRATES FOR HYPOGLYCEMIA PO PRN (21:07)
[2018-05-20] MEDS ORDERED: GLUCOSE 40% GEL 15 GM TUBE PO PRN (21:07)
[2018-05-20] MEDS ORDERED: GLUCAGON FOR INJ 1 MG VIAL SQ PRN (21:07)
[2018-05-20] MEDS ORDERED: DEXTROSE 50% 50 ML SYRINGE IV PRN (21:07)
[2018-05-20] MEDS ORDERED: GLUCOSE 10 TABS/TUBE PO PRN (21:07)
[2018-05-20] MEDS: INSULIN ASPART 100 UNITS/ML 3 ML PEN SC SCH (22:15)
[2018-05-21 06:15] LABS: Estimated Average Glucose 143 mg/dl; Hemoglobin A1C 6.6 % (4.5-5.6)
[2018-05-21 06:17] LABS: Hematocrit (blood only) 37.2 % (37-47); Hemoglobin 12.3 g/dL (12.0-16.0); Mean Corpuscular Hgb Conc 33.1 g/dL (32-36); Mean Platelet Volume 11.2 fL (7.4-10.4); Platelet Count 135 K/uL (130-400); RDW Coefficient of Variation 13.8 % (11.5-14.5)
[2018-05-21 06:33] LABS: BUN Creatinine Ratio 33.6 (10-20); Creatinine Clr Calc Pharmacy 46.6 ml/min; Est GFR (African American) 65.6; Est GFR (Non-African American) 56.6; Potassium 4.2 mmol/L (3.5-5.1)
[2018-05-21] MEDS: HydrALAZINE HCL 20 MG/ML VIAL IV PRN (08:27)
--- NOTE | 2018-05-21 08:28 | Orthopedic Consultation ---
Date of Consultation May 21, 2018 Assessment & Plan (1) Bimalleolar fracture of right ankle: X-rays will be reviewed with Dr. Real today. The current splint may not be adequate enough and we may need to apply a new splint and repeat films. I discussed with the patient that this is something that sometimes we treat in a cast versus surgical. We will consult with Dr. Real and make final decisions later this morning. Thank you for this consult. History of Present Illness Reason for Consultation: Right bimalleolar ankle fracture Attending Physician: Trudy Gann MD History of Present Illness Patient is an 82-year-old white female who states that she hurt her ankle while getting into bed. This occurred on the of this month. She states that her bed is very high and she needs a stool to get in and out of the bed. She also states that she has been dealing with lightheadedness and does have a history of vertigo. She says that whenever she was getting up into bed she had difficulty with her lightheadedness and decided to wait a little bit before attempting it again. On the second attempt, she was on the stool getting into bed and her foot slipped out from under her. She states she heard a cracking noise and had a lot of pain in her right ankle. She was able to summon an ambulance and states that she essentially laid by her bed until he got there. She was then transported to the emergency room. X-rays were taken and found her to have a bimalleolar ankle fracture. She was having difficulty ambulating and pain control issues and was admitted. Plans are for rehab facility which will require a 3-day stay. Allergies Allergy/AdvReac Type Severity Reaction Status Date / Time azelastine Allergy Intermediate elevated bp Verified 05/19/18 22:30 mivacurium Allergy Mild RASH Verified 05/19/18 22:30 citalopram Allergy Unknown UNKNOWN Verified 05/19/18 22:30 chlorpheniramine AdvReac Intermediate ELEVATED BP Verified 05/19/18 22:30 Corticosteroids AdvReac Intermediate ELEVATED BP Verified 05/19/18 22:30 (Glucocorticoids) fexofenadine AdvReac Intermediate ELEVATED BP Verified 05/19/18 22:30 fluticasone AdvReac Intermediate ELEVATED BP Verified 05/19/18 22:30 hydrocodone AdvReac Intermediate ELEVATED BP Verified 05/19/18 22:30 magnesium salicylate AdvReac Intermediate ELEVATED BP Verified 05/19/18 22:30 salicylates AdvReac Intermediate ELEVATED BP Verified 05/19/18 22:30 Home Medications Home Medications Medication Instructions Recorded Confirmed Type albuterol sulfate HFA 90 2 puffs INH Q6H PRN 11/28/17 05/19/18 History mcg/actuation aerosol inhaler amlodipine 10 mg tablet 10 mg PO DAILY 11/28/17 05/19/18 History aspirin 81 mg tablet,delayed 81 mg PO DAILY 11/28/17 05/19/18 History release atorvastatin 20 mg tablet 20 mg PO DAILY 11/28/17 05/19/18 History calcium carbonate 600 mg (1,500 1 tab PO DAILY 11/28/17 05/19/18 History mg)-vitamin D3 200 unit tablet docusate sodium 100 mg capsule 100 mg PO QPM cap 11/28/17 05/19/18 History docusate sodium 100 mg capsule 200 mg PO QAM cap 11/28/17 05/19/18 History gabapentin 300 mg capsule 300 mg PO BID 11/28/17 05/19/18 History losartan 25 mg tablet 25 mg PO DAILY 11/28/17 05/19/18 History metformin 500 mg tablet 500 mg PO DAILY tab 11/28/17 05/19/18 History metoprolol tartrate 100 mg tablet 100 mg PO BID 11/28/17 05/19/18 History mirabegron ER 25 mg 25 mg PO DAILY 11/28/17 05/19/18 History tablet,extended release 24 hr montelukast 10 mg tablet 10 mg PO QPM 11/28/17 05/19/18 History pantoprazole 40 mg tablet,delayed 40 mg PO DAILY 11/28/17 05/19/18 History release tramadol 50 mg tablet 50 mg PO TID PRN tab 11/28/17 05/19/18 History vitamin B complex tablet 1 tab PO DAILY 11/28/17 05/19/18 History Zay's Leg Cramp 1 tab PO HS 01/11/18 05/19/18 History jkahybtu-hlkz-qyh-folic acid [One 1 tab PO DAILY 01/11/18 05/19/18 History Daily For Women] naproxen sodium [Aleve] 220 mg PO DIRECTED PRN 01/11/18 05/19/18 History duloxetine 60 mg capsule,delayed 60 mg PO DAILY #30 cap 01/17/18 05/19/18 Rx release Patient History Medical History Sciatic nerve pain (Chronic) Anxiety (Chronic) Arthritis (Chronic) Asthma (Chronic) CAD (coronary artery disease) (Chronic) Cataract (Chronic) Diabetes (Chronic) Diabetic neuropathy (Chronic) Hypertension (Chronic) Kidney disease (Chronic) Lumbago (Chronic) Surgical History Hx laparoscopic cholecystectomy Hx of tubal ligation Family History Other Cancer Social History Preferred Language: Romanian Communication Ability: Effective Insurance Coder Required: No Beliefs That Will Affect Care: None marital status: / marital status details: ishokronn Current Living Situation: Alone current occupational status: retired Other Information That Helps Us Care for You: No Feels Safe at Home: Yes Safety Concerns: Feels Safe At This Time Smoking Status: Never smoker Hx Alcohol Use: No Hx Substance Use: No Review of Systems As per admitting history and physical. No recent fevers or chills, flu or cold- like symptoms. No increased cough or sputum production. No shortness of breath at rest, chest pain, chest pressure, irregular heartbeat. No abdominal pain, nausea, vomiting, diarrhea. No melena. Denies hematuria, pyuria, dysuria. Physical Exam Vital Signs (Past 24 Hours): Last Vital Signs Temp 37.0 C 05/21/18 07:22 Pulse 85 05/21/18 07:22 Resp 16 05/21/18 07:22 BP 185/76 H 05/21/18 07:22 Pulse Ox 91 05/21/18 07:22 Physical Exam: Focusing exam on the right lower extremity, the patient has a splint on the right ankle at this time. Toes are pink and warm. She has good movement of her toes at this time. She has decreased sensation due to neuropathy. She denies any other pain in the right lower extremity and left lower extremity is within normal limits with range of motion. She denies any discomfort or decreased range of motion with her upper extremities bilaterally. She states that she was having sciatic pain in the left lower extremity however since she has been admitted, this seems to have resolved for now at least. Results & Data Diagnostic Findings RIGHT ANKLE 3 VIEWS CLINICAL HISTORY: Fall with right ankle injury. FINDINGS: 3 views of the right ankle are obtained. No prior studies are available for comparison at the time of dictation. The skeletal structures are osteopenic. There is a minimally distracted fracture of the medial malleolus. There is also a mildly distracted spiral fracture of the distal fibular shaft. The ankle joint appears maintained. There is a joint effusion, and soft tissue edema is present around the ankle. Atherosclerotic calcification is noted in the regional arteries. There are large dorsal and plantar calcaneal enthesophytes. Degenerative spurring is seen along the dorsal aspect of the tarsal bones. IMPRESSION: Bimalleolar fractures as above with associated joint effusion and soft tissue swelling. Electronically signed by: Ravi Schwarz M.D. 05/19/2018 10:32 PM (1) Bimalleolar fracture of right ankle Encounter type: initial encounter Fracture type: closed Qualified Code(s): S82.841A - Displaced bimalleolar fracture of right lower leg, initial encounter for closed fracture
[2018-05-21] MEDS: DULOXETINE HCL 60 MG CAP PO SCH (09:17)
[2018-05-21] MEDS: GABAPENTIN 300 MG CAP PO SCH ×2 (09:17→20:25)
[2018-05-21] MEDS: DOCUSATE SODIUM 100 MG CAP PO SCH ×2 (09:18→20:26)
[2018-05-21] MEDS: AMLODIPINE BESYLATE 5 MG TAB PO SCH (09:18)
[2018-05-21] MEDS: ASPIRIN 81 MG ECTAB PO SCH (09:18)
[2018-05-21] MEDS: ATORVASTATIN 20 MG TAB PO SCH (09:18)
[2018-05-21] MEDS: PANTOprazole 40 MG TAB PO SCH (09:19)
[2018-05-21] MEDS: METOPROLOL TARTRATE 100 MG TAB PO SCH ×2 (09:19→20:23)
[2018-05-21] MEDS: METFORMIN HCL 500 MG TAB PO SCH (09:19)
[2018-05-21] MEDS: ENOXAPARIN INJ 40 MG/0.4 ML SYR SQ SCH (09:20)
[2018-05-21] MEDS: CALCIUM 600MG + VIT D 400 IU TAB PO SCH (09:20)
[2018-05-21] MEDS: LOSARTAN POTASSIUM 25 MG TAB PO SCH (09:20)
[2018-05-21] MEDS: MIRABEGRON ER 25 MG TAB PO SCH (09:21)
[2018-05-21] MEDS: NYSTATIN POWDER 15GM BTL EXT SCH ×2 (09:21→20:22)
[2018-05-21] MEDS: INSULIN ASPART 100 UNITS/ML 3 ML PEN SC SCH ×4 (09:25→21:32)
[2018-05-21] MEDS: ONDANSETRON INJ 2 MG/ML 2 ML VIAL IV PRN (09:43)
--- NOTE | 2018-05-21 10:06 | Hospitalist Progress Note ---
Date of Service May 21, 2018 Assessment & Plan (1) Bimalleolar fracture of right ankle: - Presented with right ankle fracture following fall at home; fall may be related to pre-syncope/orthostatic hypotension - Ankle XR showed bimalleolar fractures with associated joint effusion and soft tissue swelling. - Pain control with home tramadol prn; PRN Tylenol and PRN Dilaudid (hasn't required additional narcotics) - Ortho following - appreciate assistance - planning on re-evaluation this aft [place] for possible change in splint vs other management - PT/OT -- appreciate assessment - patient anticipating [facility] referral - will need 3 midnights Present on Admission?: Yes (2) Chronic lumbar pain: - Related to sciatica. - Continue Cymbalta 60 mg daily and Gabapentin 300 mg BID. - Continue home Tramadol PRN - Sees [facility] pain management in outpatient setting. Present on Admission?: Yes (3) Coronary artery disease: - Placement of drug eluting stent in the LAD in 2009 following anterior septal wall PA in May 2009. - Continue statin, beta nel and aspirin as prescribed. Present on Admission?: Yes (4) Benign essential hypertension: - Continue Amlodipine 10 mg daily, Losartan 25 mg daily, and Metoprolol 100 mg BID - Follow orthostatic BPs Present on Admission?: Yes (5) Hyperlipidemia: - Continue Lipitor 20 mg daily. Present on Admission?: Yes (6) Chronic diastolic heart failure: - Echo in Nov 2017 showed EF 50-55%, mild LVH, trace aortic regurg, trace pulmonic regurg and trace tricupsid regurg. - Monitor net I/O's and daily weights. - Continue BB as prescribed. - No signs of decompensation at this time Present on Admission?: Yes (7) Cerebrovascular disease: - Per previous cardiology note, concern for old left parietal stroke on CT scan in 2007. Present on Admission?: Yes (8) Carotid stenosis: - Last carotid doppler in Mar 2016. - Continue aspirin, statin and BP meds. - Will need recheck doppler in Feb 2019 per outpatient notes. Present on Admission?: Yes (9) Type 2 diabetes mellitus: - Continue home Metformin 500 mg PO daily; cover with SSI if additional coverage is needed - Hemoglobin A1C is 6.6 Present on Admission?: Yes (10) Osteopenia: - DEXA scan in July 2016. - Monitor Vit D levels as outpatient. Present on Admission?: Yes (11) Urinary incontinence: - Continue Myrbetriq as prescribed. Present on Admission?: Yes (12) GERD (gastroesophageal reflux disease): - Has history of peptic ulcer disease and esophageal stricture s/p dilation in the past. - PPI PO daily. Present on Admission?: Yes (13) Anxiety: - Continue Duloxetine as prescribed. Present on Admission?: Yes (14) Allergic rhinitis: - Singulair 10 mg daily. Present on Admission?: Yes (15) DVT prophylaxis: - Lovenox 40 mg subQ q24hr. Dispo: Await further evaluation by orthopedics; planning on [facility] - will need 3 midnight stay Subjective Reports having some nausea without vomiting after eating some strawberry yogurt. Denies any current ankle pain when at rest. Has baseline neuropathy but denies worsening of numbness/tingling She is anticipating discharge to [facility] for rehab. Verbalizes no other complaints Constitutional: + fatigue and + weakness; no fever and no chills Ear, Nose, Mouth, Throat: no dysphagia Respiratory: no cough and no dyspnea Cardiovascular: no chest pain, no palpitations, no lightheadedness, no syncope and no edema Gastrointestinal: + nausea and + constipation; no abdominal pain, no vomiting and no diarrhea/loose stools Genitourinary (Female): no dysuria Musculoskeletal: + back pain (Sciatica) and + joint pain (R ankle with ambulat ion); no body aches Integumentary: no rash Neurologic: + numbness (chronic neuropathy - not worsening) Physical Exam Vital Signs (Past 24 Hours): Last Vital Signs Temp 37.0 C 05/21/18 07:22 Pulse 96 H 05/21/18 09:52 Resp 16 05/21/18 07:22 BP 131/67 05/21/18 09:52 Pulse Ox 91 05/21/18 07:22 Constitutional: WD/WN, vitals as above Eyes: + anicteric sclerae ENMT: Ears: no hearing impairment Neck: trachea midline Respiratory: normal respiratory effort Auscultation: + wheezes (scattered; expiratory) Cardiovascular: RRR, no murmur, no edema Gastrointestinal (Abdomen): Inspection/Auscultation: normal bowel sounds Percussion/Palpation: abdomen soft; abdomen nontender Musculoskeletal: Head/Neck/Chest: normocephalic and head atraumatic R Ankle with splint and SWAPNA wrap applied; movement to toes; cap refill immediate; no cyanosis; equal temperature of skin Skin: no rashes, warm and dry Neurologic: moves all extremities Psychiatric: A+Ox3, euthymic affect (1) Bimalleolar fracture of right ankle Encounter type: initial encounter Fracture type: closed Qualified Code(s): S82.841A - Displaced bimalleolar fracture of right lower leg, initial encounter for closed fracture
[2018-05-21] MEDS: MONTELUKAST SODIUM 10 MG TABLET PO SCH (20:23)
[2018-05-21] MEDS ORDERED: NON-FORMULARY PATIENT'S OWN MED SCH (21:00)
[2018-05-21] MEDS ORDERED: ALBUTEROL HFA INHALER 8.5 GM INH SCH (21:00)
[2018-05-21] MEDS: ALBUTEROL HFA INHALER 8.5 GM INH SCH (21:34)
[2018-05-22] MEDS: TRAMADOL HCL 50 MG TABLET PO PRN (00:21)
--- NOTE | 2018-05-22 07:51 | Orthopedic Progress Note ---
Date of Service May 22, 2018 Assessment & Plan (1) Bimalleolar fracture of right ankle: Dr Limon in agreement for ORIF. Plan for OR tomorrow. Subjective Pt resting comfortably this AM. I spoke with Dr Real last night. He stated that pt's family were asking if Dr Limon could see the patient and do surgery if possible. Dr Limon reviewed the films and plans will be for ORIF on 05/23/18. Currently she has no complaints. Pain is controlled. Physical Exam Vital Signs (Past 24 Hours): Last Vital Signs Temp 37.5 C 05/22/18 07:04 Pulse 97 H 05/22/18 07:04 Resp 18 05/22/18 07:04 BP 166/71 H 05/22/18 07:04 Pulse Ox 91 05/22/18 07:04 Physical Exam: Essentially no change. Spint intact. Toes are pink and warm with good ROM. Sensation decreased due to neuropathy. (1) Bimalleolar fracture of right ankle Encounter type: initial encounter Fracture type: closed Qualified Code(s): S82.841A - Displaced bimalleolar fracture of right lower leg, initial encounter for closed fracture
[2018-05-22] MEDS: METFORMIN HCL 500 MG TAB PO SCH (09:24)
[2018-05-22] MEDS: CALCIUM 600MG + VIT D 400 IU TAB PO SCH (09:24)
[2018-05-22] MEDS: ENOXAPARIN INJ 40 MG/0.4 ML SYR SQ SCH (09:24)
[2018-05-22] MEDS: MIRABEGRON ER 25 MG TAB PO SCH (09:24)
[2018-05-22] MEDS: METOPROLOL TARTRATE 100 MG TAB PO SCH ×2 (09:24→21:05)
[2018-05-22] MEDS: ASPIRIN 81 MG ECTAB PO SCH (09:24)
[2018-05-22] MEDS: LOSARTAN POTASSIUM 25 MG TAB PO SCH (09:24)
[2018-05-22] MEDS: DOCUSATE SODIUM 100 MG CAP PO SCH ×2 (09:26→21:04)
[2018-05-22] MEDS: INSULIN ASPART 100 UNITS/ML 3 ML PEN SC SCH ×5 (09:27→23:55)
[2018-05-22] MEDS: ALBUTEROL HFA INHALER 8.5 GM INH SCH ×5 (09:28→21:07)
[2018-05-22] MEDS: DULOXETINE HCL 60 MG CAP PO SCH (10:04)
[2018-05-22] MEDS: GABAPENTIN 300 MG CAP PO SCH ×2 (10:05→21:06)
[2018-05-22] MEDS: NYSTATIN POWDER 15GM BTL EXT SCH ×2 (10:05→21:01)
[2018-05-22] MEDS: ATORVASTATIN 20 MG TAB PO SCH (10:05)
[2018-05-22] MEDS: PANTOprazole 40 MG TAB PO SCH (10:05)
[2018-05-22] MEDS: AMLODIPINE BESYLATE 5 MG TAB PO SCH (10:05)
--- NOTE | 2018-05-22 11:18 | XRay Report ---
XR chest 1V portable HISTORY: 82 years-old Female pre-op assessment preoperative exam. No acute chest complaints COMPARISON: Chest radiograph 09/19/2017 TECHNIQUE: Portable AP view of the chest FINDINGS: Cardiac mediastinal and hilar silhouettes are unchanged. Calcification of the thoracic aortic arch. T here is no pneumothorax, pleural effusion, focal airspace consolidation or overt pulmonary edema. Deg enerative changes are seen about the shoulders and spine. Surgical clips of the abdominal right upper quadrant are suggestive of prior cholecystectomy. IMPRESSION: No acute process. The above report was generated using voice recognition software. It may contain grammatical, syntax o r spelling errors. Electronically signed by: Pablito Kee M.D. 05/22/2018 11:17 AM
[2018-05-22] MEDS ORDERED: LORazepam 0.5 MG TAB PO PRN (16:34)
--- NOTE | 2018-05-22 17:00 | Hospitalist Progress Note ---
Date of Service May 22, 2018 Assessment & Plan (1) Bimalleolar fracture of right ankle: - Presented with right ankle fracture following fall at home; fall may be related to pre-syncope/orthostatic hypotension - Ankle XR showed bimalleolar fractures with associated joint effusion and soft tissue swelling. - Pain control with home tramadol prn; PRN Tylenol and PRN Dilaudid (hasn't required additional narcotics) - Ortho following - appreciate assistance - planning on ORIF on 05/23 - NPO at midnight - will hold on additional fluids at this time other than order pre/intra-operatively - PT/OT -- appreciate assessment - patient anticipating [facility] referral - will need 3 midnights (05/23) - anticipate a couple days post-op recovery so likely around weekend time can likely go to rehab if no complication (2) Pre-operative examination: - Pt with H/O CAD S/P PCI and denies acute cardiac issue; she denies angina or exertional dyspnea/CP - Echo (Nov 2017) - EF 50-55%; mild LVH; no regional wall motion abnormalities - EKG without ischemic findings; CXR without acute process - On the revised cardiac risk index she would be a II-III class risk with a 6- 10% risk of cardiac issue simply due to her CAD history and need for insulin treatment - however appears stable from a cardiac standpoint and no signs of decompensation. Glucose is stable with A1c is 6.6 which is fantastic given age - Given the lack of acute issues and no CP at rest/exertion. Medically she would be optimal for surgical management at this time (3) Chronic lumbar pain: - Related to sciatica. - Continue Cymbalta 60 mg daily and Gabapentin 300 mg BID. - Continue home Tramadol PRN - Sees [facility] pain management in outpatient setting. (4) Coronary artery disease: - Placement of drug eluting stent in the LAD in 2009 following anterior septal wall GA in May 2009. - Continue statin, beta nel, and hold ASA given surgical intervention Present on Admission?: Yes (5) Benign essential hypertension: - Continue Amlodipine 10 mg daily, Losartan 25 mg daily, and Metoprolol 100 mg BID - Follow orthostatic BPs Present on Admission?: Yes (6) Hyperlipidemia: - Continue Lipitor 20 mg daily. Present on Admission?: Yes (7) Chronic diastolic heart failure: - Echo in Nov 2017 showed EF 50-55%, mild LVH, trace aortic regurg, trace pulmonic regurg and trace tricupsid regurg. - Monitor net I/O's and daily weights. - Continue BB as prescribed. - No signs of decompensation at this time Present on Admission?: Yes (8) Cerebrovascular disease: - Per previous cardiology note, concern for old left parietal stroke on CT scan in 2007. Present on Admission?: Yes (9) Carotid stenosis: - Last carotid doppler in Mar 2016. - Continue aspirin, statin and BP meds. - Will need recheck doppler in Feb 2019 per outpatient notes. Present on Admission?: Yes (10) Type 2 diabetes mellitus: - Home Metformin 500 mg PO daily given surgery and cover with SSI if additional coverage is needed - Hemoglobin A1C is 6.6 Present on Admission?: Yes (11) Osteopenia: - DEXA scan in July 2016. - Monitor Vit D levels as outpatient. Present on Admission?: Yes (12) Urinary incontinence: - Continue Myrbetriq as prescribed. Present on Admission?: Yes (13) GERD (gastroesophageal reflux disease): - Has history of peptic ulcer disease and esophageal stricture s/p dilation in the past. - PPI PO daily. Present on Admission?: Yes (14) Anxiety: - Continue Duloxetine as prescribed. Present on Admission?: Yes (15) Allergic rhinitis: - Singulair 10 mg daily. Present on Admission?: Yes (16) DVT prophylaxis: - SCDs given surgical procedure Dispo: Await surgical intervention; likely couple more days post-op and rehab possibly this weekend? Subjective Reports she is doing well. Pain is under control. Has ongoing issue with erythema of the skin folds and has a skin crack on the R abdominal skin fold. She is due for surgical repair of her ankle tomorrow. She states she is moving her bowels and feels that her breathing is stable. She has a cardiac history but denies any acute issues. She denies CP currently or CP on exertion. Denies SOB with exertion. Constitutional: + fatigue and + weakness; no fever and no chills Respiratory: no cough and no dyspnea Cardiovascular: no chest pain, no palpitations, no lightheadedness and no edema Gastrointestinal: no abdominal pain, no nausea, no vomiting, no constipation and no diarrhea/loose stools Genitourinary (Female): no dysuria Musculoskeletal: + back pain (Sciatica) and + joint pain (R ankle with ambulation); no body aches Integumentary: + rash (mild erythema under abdominal skin folds with one skin crack on R side) Neurologic: + numbness (chronic neuropathy - not worsening) Physical Exam Vital Signs (Past 24 Hours): Last Vital Signs Temp 36.9 C 05/22/18 15:18 Pulse 76 05/22/18 15:18 Resp 19 05/22/18 15:18 BP 155/72 H 05/22/18 15:18 Pulse Ox 90 05/22/18 15:18 Constitutional: WD/WN, vitals as above Eyes: + anicteric sclerae ENMT: Ears: no hearing impairment Neck: trachea midline Respiratory: normal respiratory effort Auscultation: no wheezes Cardiovascular: RRR, no murmur, no edema Gastrointestinal (Abdomen): Inspection/Auscultation: normal bowel sounds Percussion/Palpation: abdomen soft; abdomen nontender Musculoskeletal: Head/Neck/Chest: normocephalic, head atraumatic and neck supple Extremities: no cyanosis and no clubbing R ankle with SWAPNA and splint in place; immediate cap refill Skin: + rash (mild erythema of R abdominal skin fold with one cracked area of skin) Neurologic: moves all extremities Psychiatric: A+Ox3, euthymic affect (1) Bimalleolar fracture of right ankle Encounter type: initial encounter Fracture type: closed Qualified Code(s): S82.841A - Displaced bimalleolar fracture of right lower leg, initial encounter for closed fracture
--- NOTE | 2018-05-22 17:55 | Anesthesiology Consultation ---
Date of Service May 22, 2018 Assessment & Plan (1) Encounter for pre-operative examination: Chart Review Chart Review: Acceptable Risk for Surgery and Patient NOT seen in Pre Admission Testing Consults Requested none The medicine service is following the patient on the floor. The patient is alert and oriented according to her nurse. She will be NPO after midnight except for sips of water with her meds. History Surgery Operation Date: 05/23/18 10:20 Proposed Procedures p Right Ankle Bimalleolar Fracture Open Reduction Internal Fixation - Slava Limon DO Height/Weight Height: 5 ft 2 in Weight: 81.8 kg Allergies Allergy/AdvReac Type Severity Reaction Status Date / Time azelastine Allergy Intermediate elevated bp Verified 05/19/18 22:30 mivacurium Allergy Mild RASH Verified 05/19/18 22:30 citalopram Allergy Unknown UNKNOWN Verified 05/19/18 22:30 chlorpheniramine AdvReac Intermediate ELEVATED BP Verified 05/19/18 22:30 Corticosteroids AdvReac Intermediate ELEVATED BP Verified 05/19/18 22:30 (Glucocorticoids) fexofenadine AdvReac Intermediate ELEVATED BP Verified 05/19/18 22:30 fluticasone AdvReac Intermediate ELEVATED BP Verified 05/19/18 22:30 hydrocodone AdvReac Intermediate ELEVATED BP Verified 05/19/18 22:30 magnesium salicylate AdvReac Intermediate ELEVATED BP Verified 05/19/18 22:30 salicylates AdvReac Intermediate ELEVATED BP Verified 05/19/18 22:30 Medications Home Medications Medication Instructions Recorded Confirmed Last Taken albuterol sulfate HFA 90 2 puffs INH Q6H PRN 11/28/17 05/19/18 Unknown mcg/actuation aerosol inhaler amlodipine 10 mg tablet 10 mg PO DAILY 11/28/17 05/19/18 05/19/18 aspirin 81 mg tablet,delayed 81 mg PO DAILY 11/28/17 05/19/18 05/19/18 release atorvastatin 20 mg tablet 20 mg PO DAILY 11/28/17 05/19/18 05/19/18 calcium carbonate 600 mg (1,500 1 tab PO DAILY 11/28/17 05/19/18 05/19/18 mg)-vitamin D3 200 unit tablet docusate sodium 100 mg capsule 100 mg PO QPM cap 11/28/17 05/19/18 01/11/18 docusate sodium 100 mg capsule 200 mg PO QAM cap 11/28/17 05/19/18 05/19/18 gabapentin 300 mg capsule 300 mg PO BID 11/28/17 05/19/18 05/19/18 losartan 25 mg tablet 25 mg PO DAILY 11/28/17 05/19/18 05/19/18 metformin 500 mg tablet 500 mg PO DAILY tab 11/28/17 05/19/18 05/19/18 metoprolol tartrate 100 mg tablet 100 mg PO BID 11/28/17 05/19/18 05/19/18 mirabegron ER 25 mg 25 mg PO DAILY 11/28/17 05/19/18 05/19/18 tablet,extended release 24 hr montelukast 10 mg tablet 10 mg PO QPM 11/28/17 05/19/18 05/19/18 pantoprazole 40 mg tablet,delayed 40 mg PO DAILY 11/28/17 05/19/18 05/19/18 release tramadol 50 mg tablet 50 mg PO TID PRN tab 11/28/17 05/19/18 05/19/18 vitamin B complex tablet 1 tab PO DAILY 11/28/17 05/19/18 05/19/18 Zay's Leg Cramp 1 tab PO HS 01/11/18 05/19/18 01/10/18 [id number]-[id number] acid [One 1 tab PO DAILY 01/11/18 05/19/18 05/19/18 Daily For Women] naproxen sodium [Aleve] 220 mg PO DIRECTED PRN 01/11/18 05/19/18 Unknown duloxetine 60 mg capsule,delayed 60 mg PO DAILY #30 cap 01/17/18 05/19/18 05/19/18 release Active Medications Generic Name Dose Route Start Last Admin Trade Name Freq PRN Reason Stop Dose Admin Acetaminophen 650 mg 05/20/18 02:24 05/20/18 05:32 Tylenol PO 06/19/18 02:23 650 mg Q4H PRN Administration pain/fever Albuterol 2 puffs 05/20/18 02:24 05/21/18 20:25 Ventolin Hfa INH 06/19/18 02:23 2 puffs Q6H PRN Administration Shortness Of Breath Or Wheezing Albuterol 2 puffs 05/21/18 21:00 05/22/18 13:47 Proair Hfa INH 06/20/18 20:59 Not Given QID LEYDI Amlodipine Besylate 10 mg 05/20/18 09:00 05/22/18 10:05 Norvasc PO 06/19/18 08:59 10 mg DAILY LEYDI Administration Aspirin 81 mg 05/20/18 09:00 05/22/18 09:24 Ecotrin Ectab PO 06/19/18 08:59 81 mg DAILY LEYDI Administration Atorvastatin Calcium 20 mg 05/20/18 09:00 05/22/18 10:05 Lipitor PO 06/19/18 08:59 20 mg DAILY LEYDI Administration Docusate Sodium 100 mg 05/20/18 21:00 05/21/18 20:26 Colace PO 06/19/18 20:59 100 mg QPM LEYDI Administration Docusate Sodium 200 mg 05/20/18 09:00 05/22/18 09:26 Colace PO 06/19/18 08:59 200 mg QAM LEYDI Administration Duloxetine HCl 60 mg 05/20/18 09:00 05/22/18 10:04 Cymbalta PO 06/19/18 08:59 60 mg DAILY LEYDI Administration Gabapentin 300 mg 05/20/18 09:00 05/22/18 10:05 Neurontin PO 06/19/18 08:59 300 mg BID LEYDI Administration Hydralazine HCl 10 mg 05/20/18 14:47 05/21/18 08:27 Hydralazine Hcl IV 06/19/18 14:59 10 mg Q6H PRN Administration SBP >180, DBP >110 Insulin Aspart 0 units 05/20/18 22:00 05/22/18 13:48 Novolog Flexpen SC 06/19/18 21:59 4 units ACHS LEYDI Administration Losartan Potassium 25 mg 05/20/18 09:00 05/22/18 09:24 Cozaar PO 06/19/18 08:59 25 mg DAILY LEYDI Administration Metformin HCl 500 mg 05/20/18 09:00 05/22/18 09:24 Glucophage PO 06/19/18 08:59 500 mg DAILY LEYDI Administration Metoprolol Tartrate 100 mg 05/20/18 09:00 05/22/18 09:24 Lopressor PO 06/19/18 08:59 100 mg BID LEYDI Administration Mirabegron 25 mg 05/20/18 09:00 05/22/18 09:24 Myrbetriq Er PO 06/19/18 08:59 25 mg DAILY LEYDI Administration Montelukast Sodium 10 mg 05/20/18 21:00 05/21/18 20:23 Singulair PO 06/19/18 20:59 10 mg QPM LEYDI Administration Multivitamins/Minerals 1 tab 05/20/18 09:00 05/22/18 09:24 Caltrate Plus PO 06/19/18 08:59 1 tab DAILY LEYDI Administration Nystatin 1 appln 05/20/18 21:00 05/22/18 10:05 Mycostatin EXT 06/19/18 20:59 1 appln BID LEYDI Administration Ondansetron HCl 4 mg 05/20/18 02:24 05/21/18 09:43 Zofran IV 06/19/18 02:23 4 mg Q6H PRN Administration Nausea Pantoprazole Sodium 40 mg 05/20/18 09:00 05/22/18 10:05 Protonix PO 06/19/18 08:59 40 mg DAILY LEYDI Administration Tramadol HCl 50 mg 05/20/18 02:24 05/22/18 00:21 Ultram PO 06/19/18 02:23 50 mg TID PRN Administration pain Past Medical History Medical History Sciatic nerve pain (Chronic) Anxiety (Chronic) Arthritis (Chronic) Asthma (Chronic) CAD (coronary artery disease) (Chronic) Cataract (Chronic) Diabetes (Chronic) Diabetic neuropathy (Chronic) Hypertension (Chronic) Kidney disease (Chronic) Lumbago (Chronic) Past Family History Family History Other Cancer Past Surgical History Surgical History Hx laparoscopic cholecystectomy Hx of tubal ligation Social History Smoking Status: Never smoker Do You Dip or Chew Tobacco: No Hx Alcohol Use: No Hx Substance Use: No Physical Exam Vital Signs Last Vital Signs Temp 36.9 C 05/22/18 15:18 Pulse 76 05/22/18 15:18 Resp 19 05/22/18 15:18 BP 155/72 H 05/22/18 15:18 Pulse Ox 90 05/22/18 15:18 Testing Electrocardiogram Date: 05/22/18 Findings: + NSR @ (91) and + NSST changes Chest X-Ray Date: 05/22/18 Findings: + NAD Laboratory Results 05/21/18 06:04 05/21/18 06:04 PT 10.6 Seconds (9.0-12.0) 05/20/18 07:17 INR 1.0 (0.9-1.1) 05/20/18 07:17 Hemoglobin A1c 6.6 % (4.5-5.6) H 05/20/18 07:17 05/22/18 05/22/18 05/22/18 17:09 12:11 08:17 POC Glucose 216 H 135 H 173 H
[2018-05-22] MEDS: MONTELUKAST SODIUM 10 MG TABLET PO SCH (21:06)
[2018-05-22] MEDS ORDERED: Nursing to Pharmacy Communication ONE (22:17)
[2018-05-23] MEDS: TRAMADOL HCL 50 MG TABLET PO PRN ×2 (03:55→23:14)
[2018-05-23] MEDS: INSULIN ASPART 100 UNITS/ML 3 ML PEN SC SCH ×4 (05:41→20:51)
[2018-05-23 05:57] LABS: Hematocrit (blood only) 38.6 % (37-47); Hemoglobin 12.5 g/dL (12.0-16.0); Mean Corpuscular Hgb Conc 32.4 g/dL (32-36); Mean Corpuscular Volume 94.6 fL (80-100); Mean Platelet Volume 11.3 fL (7.4-10.4); Platelet Count 161 K/uL (130-400); RDW Coefficient of Variation 13.8 % (11.5-14.5); RDW Standard Deviation 47.7 fL (36.4-46.3); Red Blood Count 4.08 M/uL (4.2-5.4); White Blood Count 9.77 K/uL (4.8-10.8)
[2018-05-23 06:30] LABS: BUN Creatinine Ratio 38.3 (10-20); Calcium 9.2 mg/dl (8.5-10.1); Creatinine Clr Calc Pharmacy 48.9 ml/min; Est GFR (African American) 69.1; Est GFR (Non-African American) 59.6; Potassium 4.2 mmol/L (3.5-5.1)
[2018-05-23] MEDS ORDERED: ROPIVACAINE 0.5% 5 MG/ML 30 ML VIAL ONE ×2 (07:25→10:35)
[2018-05-23] MEDS: DOCUSATE SODIUM 100 MG CAP PO SCH ×2 (08:00→20:51)
[2018-05-23] MEDS: AMLODIPINE BESYLATE 5 MG TAB PO SCH (08:00)
[2018-05-23] MEDS: PANTOprazole 40 MG TAB PO SCH (08:00)
[2018-05-23] MEDS: MIRABEGRON ER 25 MG TAB PO SCH (08:00)
[2018-05-23] MEDS: GABAPENTIN 300 MG CAP PO SCH ×2 (08:00→20:51)
[2018-05-23] MEDS: LOSARTAN POTASSIUM 25 MG TAB PO SCH (08:00)
[2018-05-23] MEDS: METOPROLOL TARTRATE 100 MG TAB PO SCH ×2 (08:00→20:51)
[2018-05-23] MEDS: DULOXETINE HCL 60 MG CAP PO SCH (08:00)
[2018-05-23] MEDS: CALCIUM 600MG + VIT D 400 IU TAB PO SCH (08:01)
[2018-05-23] MEDS: ALBUTEROL HFA INHALER 8.5 GM INH SCH ×4 (08:01→20:50)
[2018-05-23] MEDS: ATORVASTATIN 20 MG TAB PO SCH (08:01)
[2018-05-23] MEDS: NYSTATIN POWDER 15GM BTL EXT SCH ×2 (08:01→20:51)
--- NOTE | 2018-05-23 08:46 | Hospitalist Progress Note ---
Date of Service May 23, 2018 Assessment & Plan (1) Bimalleolar fracture of right ankle: - Osteoporosis with pathological fracture of R ankle - Presented with right ankle fracture following fall at home; fall may be related to pre-syncope/orthostatic hypotension - Ankle XR showed bimalleolar fractures with associated joint effusion and soft tissue swelling. - Pain control with home tramadol prn; PRN Tylenol and PRN Dilaudid - Ortho following - appreciate assistance - ORIF on 05/23 - DVT prophylaxis - ASA 81 mg BID - PT/OT -- appreciate assessment - patient anticipating [facility] referral -- anticipate a couple days post-op recovery so likely around weekend time can likely go to rehab if no complication Present on Admission?: Yes (2) Chronic lumbar pain: - Related to sciatica. - Continue Cymbalta 60 mg daily and Gabapentin 300 mg BID. - Continue home Tramadol PRN - Sees [facility] in outpatient setting. Present on Admission?: Yes (3) Coronary artery disease: - Placement of drug eluting stent in the LAD in 2009 following anterior septal wall IA in May 2009. - Continue statin, beta nel, will resume ASA when okay with orthopedics Present on Admission?: Yes (4) Benign essential hypertension: - Continue Amlodipine 10 mg daily, Losartan 25 mg daily, and Metoprolol 100 mg BID - Follow orthostatic BPs Present on Admission?: Yes (5) Hyperlipidemia: - Continue Lipitor 20 mg daily. Present on Admission?: Yes (6) Chronic diastolic heart failure: - Echo in Nov 2017 showed EF 50-55%, mild LVH, trace aortic regurg, trace pulmonic regurg and trace tricupsid regurg. - Monitor net I/O's and daily weights. - Continue BB as prescribed. - No signs of decompensation at this time Present on Admission?: Yes (7) Cerebrovascular disease: - Per previous cardiology note, concern for old left parietal stroke on CT scan in 2007. - Conservative treatment with ASA/statin (8) Carotid stenosis: - Last carotid doppler in Mar 2016. - Continue aspirin, statin and BP meds. - Will need recheck doppler in Feb 2019 per outpatient notes. Present on Admission?: Yes (9) Type 2 diabetes mellitus: - Hold Metformin 500 mg PO daily given surgery and cover with SSI - Hemoglobin A1C is 6.6 Present on Admission?: Yes (10) Osteopenia: - DEXA scan in July 2016. - Monitor Vit D levels as outpatient. Present on Admission?: Yes (11) Urinary incontinence: - Continue Myrbetriq as prescribed. Present on Admission?: Yes (12) GERD (gastroesophageal reflux disease): - Has history of peptic ulcer disease and esophageal stricture s/p dilation in the past. - PPI PO daily. Present on Admission?: Yes (13) Anxiety: - Continue Duloxetine as prescribed. Present on Admission?: Yes (14) Allergic rhinitis: - Singulair 10 mg daily. Present on Admission?: Yes (15) DVT prophylaxis: - SCDs given surgical procedure Dispo: Await surgical intervention and post-op monitoring; likely couple more days post-op and rehab possibly this weekend to [facility]? Subjective Patient seen after surgery and answers questions appropriately but easily falls asleep. No signs of distress. Discussed with Ashley at bedside. Currently not having pain but states she feels moments of feeling hot then moments of feeling cold. Review of Systems Other (HPI limited due to falling asleep easily after surgery) having moments of feeling warm and then feeling cold Respiratory: no cough and no dyspnea Cardiovascular: no chest pain Gastrointestinal: no abdominal pain, no nausea and no vomiting Musculoskeletal: no joint pain Integumentary: + rash (mild erythema under abdominal skin folds with one skin crack on R side) Physical Exam Vital Signs (Past 24 Hours): Last Vital Signs Temp 37.6 C H 05/23/18 06:52 Pulse 89 05/23/18 06:52 Resp 18 05/23/18 06:52 BP 169/78 H 05/23/18 06:52 Pulse Ox 91 05/23/18 06:52 Constitutional: well developed; no acute distress and not ill appearing Eyes: + anicteric sclerae ENMT: Ears: no hearing impairment Neck: trachea midline Respiratory: normal respiratory effort Auscultation: lungs clear to auscultation bilaterally and + diminished lung sounds Cardiovascular: RRR, no murmur, no edema Gastrointestinal (Abdomen): Inspection/Auscultation: normal bowel sounds Percussion/Palpation: abdomen soft; abdomen nontender Musculoskeletal: Head/Neck/Chest: normocephalic, head atraumatic and neck supple Extremities: no cyanosis and no clubbing Skin: no rashes, warm and dry + rash (mild erythema of R abdominal skin fold with one cracked area of skin) Neurologic: moves all extremities Psychiatric: Orientation: alert (but easily falls back asleep) (1) Bimalleolar fracture of right ankle Encounter type: initial encounter Fracture type: closed Qualified Code(s): S82.841A - Displaced bimalleolar fracture of right lower leg, initial encounter for closed fracture
[2018-05-23] MEDS ORDERED: MIDAZOLAM HCL 1 MG/ML 2ML VIAL ONE ×2 (10:26→10:57)
[2018-05-23] MEDS ORDERED: fentaNYL citrate 100 MCG/2 ML VIAL ONE ×3 (10:26→13:02)
[2018-05-23] MEDS ORDERED: ATROPINE SULFATE 0.1 MG/ML 10ML SYR IV PRN (10:35)
[2018-05-23] MEDS ORDERED: ePHEDrine sulfate 50 MG/ML AMP IV PRN (10:35)
[2018-05-23] MEDS ORDERED: HYDROmorphone INJ 1 MG/ML SYRINGE IV PRN (10:35)
--- NOTE | 2018-05-23 11:10 | History & Physical Bridge Note ---
Date of Service May 23, 2018 History & Physical Bridge Note I have examined the patient, reviewed the History & Physical and in the interval since the performance of the History & Physical I have noted the following changes of clinical significance: no changes noted
[2018-05-23] MEDS ORDERED: BACITRACIN INJ 50,000 UNIT VIAL ONE (11:13)
[2018-05-23] MEDS ORDERED: MoRPHine SULFATE 2 MG/ML CARP IV PRN (11:52)
[2018-05-23] MEDS ORDERED: LIDOCAINE HCL 2% 2 ML VIAL/AMP(20MG/ML) INFIL ONE (12:08)
[2018-05-23] MEDS ORDERED: PROPOFOL IV EMULSION 10 MG/ML 20 ML VIAL IV ONE (12:08)
[2018-05-23] MEDS ORDERED: ePHEDrine sulfate 50 MG/ML SYR ONE ×2 (12:08→12:33)
[2018-05-23] MEDS ORDERED: PHENYLEPHRINE 100MCG/ML 5ML SYR ONE (12:08)
[2018-05-23] MEDS ORDERED: ONDANSETRON INJ 2 MG/ML 2 ML VIAL ONE (12:08)
[2018-05-23] MEDS ORDERED: EPINEPHrine HCL INJ 1 MG/ML 30ML ONE (12:15)
--- NOTE | 2018-05-23 13:35 | Post Operative Brief Note ---
Immediate Post Op Note v1 Date of Surgery May 23, 2018 Pre & Post Diagnosis Operation Date: 05/23/18 10:20 Pre-Op Diagnosis: Bimalleolar displaced fracture of right ankle Post-Op Diagnosis: Bimalleolar displaced fracture of right ankle Procedure Operation Date: 05/23/18 10:20 Actual Procedures p Right Ankle Bimalleolar Fracture Open Reduction Internal Fixation(Right) - Slava Limon DO Surgeon Slava Limon DO [facility] Representative Oskar Rao PA-C Estimated Blood Loss 75 Findings Consistent with Post-Op Diagnosis Specimens None Anesthesia Type General Regional Complications none Disposition Accompanied Patient To Recovery: Yes Disposition: Recovery Room
--- NOTE | 2018-05-23 13:55 | XRay Report ---
XR ankle RT min 3V routine CLINICAL HISTORY: post op ORIF right bimalleolar ankle fracture COMPARISON: Right ankle radiographs May 19, 2018. FINDINGS: These images demonstrate interval placement of a right fibular and screws. Alignment is im proved and appears near anatomic. Medial malleolar screws are noted which fixate the medial malleolus fracture. Hardware is intact. Overlying cast is noted. Expected postoperative findings are noted. Th ere are no unexpected radiopaque foreign bodies in the hardware is intact. IMPRESSION: Expected findings right ankle internal fixation Electronically signed by: Cristian Aguilar M.D. 05/23/2018 1:54 PM
--- NOTE | 2018-05-23 13:55 | Anesthesiology Progress Note ---
Date of Service May 23, 2018 Anesthesia Post Procedure Vital Signs Vital Signs: Temp Pulse Pulse Pulse Pulse Resp BP 05/23/18 13:50 77 18 112/45 L 05/23/18 13:40 77 18 96/53 L 05/23/18 13:31 36.1 C L 75 18 132/46 L 05/23/18 09:40 05/23/18 09:27 37.2 C 77 18 161/49 H 05/23/18 06:52 37.6 C H 89 18 169/78 H 05/22/18 23:00 37.2 C 83 16 158/65 H 05/22/18 21:12 92 H 189/68 H 05/22/18 15:18 36.9 C 76 19 155/72 H Pulse Ox 05/23/18 13:50 94 05/23/18 13:40 94 05/23/18 13:31 98 05/23/18 09:40 100 05/23/18 09:27 90 05/23/18 06:52 91 05/22/18 23:00 91 05/22/18 21:12 05/22/18 15:18 90 Pain Intensity Right Ankle: Pain Intensity: 7 Right Hip: Pain Intensity: 5 Bilateral Neck: Pain Intensity: 7 Notes Mental Status: alert / awake / arousable Patient Amnestic to Procedure: Yes Nausea / Vomiting: adequately controlled Pain: adequately controlled Airway Patency, RR, SpO2: stable & adequate BP & HR: stable & adequate Hydration State: stable & adequate Anesthetic Complications: no major complications apparent and Pt Satisfied with anesthetic care
[2018-05-23] MEDS ORDERED: Nursing to Pharmacy Communication ONE (15:29)
[2018-05-23] MEDS ORDERED: NITROGLYCERIN SL 0.4 MG/TAB TAB SL STA (16:23)
[2018-05-23 17:09] LABS: Allen Test Pos (Pos); HCO3 ABG 30 mmol/L (19-24); Oxygen Saturation ABG 90.2 % (90-95); PCO2 ABG 53 mmHg (35-46); PO2 ABG 64 mm/Hg (80-95); pH ABG 7.38 (7.35-7.45)
--- NOTE | 2018-05-23 17:10 | Communication Note ---
Date of Service: May 23, 2018 Patient was assessed approx. 15 minutes after arriving the the medical floor after surgery and was drowsy but talking and conversing normally. Please see parisa lim note from 05/23. At around 4:15 PM a chas aldridge was called and myself and Dr. Ramos assessed patient at bedside. Patient was initially hard to arouse and therefore a code was called. Upon arrival patient is awake but staring straight ahead. B/L pupils dilated. Initially she would not verbalize when asked questions. She then began to just make mouth sounds or say no to answers. Vital signs were stable. Focal deficits difficult to assess due to cooperation issues. Patient then clenched her chest and nodded to the question of chest pain. She was also experiencing some ankle pain. She was given NTG x 1. Stat EKG ordered and reviewed with NSR with non-specific ST changes which is unchanged from pre-operative EKG. Stat labs obtained and CT scans ordered. During assessment she began to become more verbal but was shaking and still very tense. She began answering questions appropriately but did exhibit some evidence of mild confusion. After NTG administered she states her chest pain is improving. She will be transfered to telemetry for further monitoring and serial troponins. Yesterday she did have a moment of clenching her teeth and can do this before panic attacks. Will R/O car diac etiology but could be medication-induced, delirium, panic attack, pain response. PHYSICAL EXAM General Appearance: mild distress in regards to chest pain/ankle pain; no evidence of respiratory distress; alert but initially staring off but slowly returning back to normal mentation HEENT: Head is normocephalic/atraumatic; PERRLA but pupils dilated b/l; Mucous membranes moist; Pharynx negative for exudate/lesions Neck: Supple; Trachea midline; Neg JVD Heart: RRR with no M/G/R Lungs: Respirations unlabored with intermittent exp. wheeze; Neg accessory muscle use Abdomen: Soft, non-tender, non-distended; Positive BS x 4 quadrants Extremities: Capillary refill < 2 seconds; Neg cyanosis or edema; R ankle with SWAPNA wrap Neurological: Speech clear but minimal conversation; Largely clenched upper extremities; Neg focal neurologic deficits from what can be assessed Psychiatric: Mild confusion; intermittently following commands Skin: Normal Color; Warm/Dry
[2018-05-23 17:16] LABS: Basophils # (auto) 0.02 K/uL (0-0.2); Basophils % (auto) 0.1 %; Eosinophils # (auto) 0.14 K/uL (0-0.5); Hemoglobin 10.2 g/dL (12.0-16.0); Immature Granulocytes # (auto) 0.04 K/uL (0.00-0.02); Immature Granulocytes % (auto) 0.3 %; Lymphocytes # (auto) 2.56 K/uL (1.2-3.4); Lymphocytes % (auto) 18.9 %; Mean Corpuscular Volume 94.4 fL (80-100); Mean Platelet Volume 11.2 fL (7.4-10.4); Monocytes # (auto) 1.65 K/uL (0.11-0.59); Monocytes % (auto) 12.2 %; Neutrophils # (auto) 9.14 K/uL (1.4-6.5); Neutrophils % (auto) 67.5 %; Platelet Count 193 K/uL (130-400); RDW Standard Deviation 48.5 fL (36.4-46.3); Red Blood Count 3.39 M/uL (4.2-5.4); White Blood Count 13.55 K/uL (4.8-10.8)
[2018-05-23 17:27] LABS: Mean Corpuscular Hgb Conc 31.9 g/dL (32-36)
[2018-05-23 17:44] LABS: Alanine Aminotransferase 27 U/L (12-78); Albumin Level 2.5 gm/dl (3.4-5.0); Aspartate Aminotransferase 22 U/L (15-37); BUN Creatinine Ratio 29.5 (10-20); Blood Urea Nitrogen 36 mg/dl (7-18); Calcium 8.5 mg/dl (8.5-10.1); Carbon Dioxide 31 mmol/L (21-32); Chloride 106 mmol/L (98-107); Creatinine Clr Calc Pharmacy 36.4 ml/min; Est GFR (African American) 48.5; Est GFR (Non-African American) 41.8; Glucose 221 mg/dl (70-99); Potassium 4.7 mmol/L (3.5-5.1); Sodium 141 mmol/L (136-145)
[2018-05-23 17:49] LABS: Albumin Globulin Ratio 0.8 (0.9-2); Alkaline Phosphatase 61 U/L (45-117); Bilirubin,Total 0.5 mg/dl (0.2-1); Globulin 3.3 gm/dl (2.5-4.0); Total Protein 5.8 gm/dl (6.4-8.2); Troponin I < 0.015 ng/ml (0-0.045)
--- NOTE | 2018-05-23 17:53 | CT Scan Report ---
CT SCAN OF THE BRAIN WITHOUT IV CONTRAST CLINICAL HISTORY: Change in mental status. COMPARISON STUDY: CT of the brain dated 01/11/2018. TECHNIQUE: Unenhanced axial CT scan of the brain is performed from the vertex to the skull base. A do se lowering technique was utilized adhering to the principles of ALARA. CT DOSE: 2469.35 mGy.cm FINDINGS: Brain parenchyma: There are age-related involutional changes noting moderate subcortical and periven tricular microangiopathic change. There is no hemorrhage, mass effect, or evidence of acute territori al ischemia by CT criteria. Mckeon-white matter differentiation is preserved. No extra-axial fluid mir ection is seen. Ventricles, sulci, cisterns: Prominent secondary to involutional change. Intracranial vasculature: There is atherosclerotic calcification of the cavernous carotid and vertebr al arteries. Calvarium: Unremarkable. Sinuses and mastoids: The visualized paranasal sinuses are clear. There are trace mastoid effusions. Orbits: The bony orbits are grossly intact. There are bilateral ocular lens implants. IMPRESSION: There is no hemorrhage, mass effect, or evidence of acute territorial ischemia by CT moris negron. Electronically signed by: Ravi Schwarz M.D. 05/23/2018 5:51 PM
[2018-05-23] MEDS ORDERED: ALBUT/IPRATROP 3MG/0.5MG NEB 3 ML VIAL NEB STA (18:26)
[2018-05-23] MEDS ORDERED: ALBUT/IPRATROP 3MG/0.5MG NEB 3 ML VIAL NEB PRN (18:27)
[2018-05-23] MEDS ORDERED: ACETAMINOPHEN 1000 MG/100 ML IV IV ONE (18:32)
--- NOTE | 2018-05-23 20:01 | XRay Report ---
XR chest 1V portable CLINICAL HISTORY: Change in Mentation/SOB dyspnea COMPARISON STUDY: 05/22/2018 FINDINGS: Developing parenchymal infiltrate left base. Lungs otherwise appear clear. Diaphragms mona h. IMPRESSION: Small developing parenchymal infiltrate left base. The above report was generated using voice recognition software. It may contain grammatical, syntax or spelling errors. Electronically signed by: Sonny Harrington M.D. 05/23/2018 7:59 PM
[2018-05-23] MEDS: ASPIRIN 81 MG ECTAB PO SCH (20:51)
[2018-05-23] MEDS: MONTELUKAST SODIUM 10 MG TABLET PO SCH (20:51)
--- NOTE | 2018-05-23 21:58 | Operative Report ---
DATE OF OPERATION: 05/23/2018 PREOPERATIVE DIAGNOSIS: Right displaced bimalleolar ankle fracture. POSTOPERATIVE DIAGNOSIS: Right displaced bimalleolar ankle fracture. PROCEDURE PERFORMED: Open reduction internal fixation, right displaced bimalleolar ankle fracture. SURGEON: Slava Limon DO STAFF APPRAISER: Oskar Rao PA-C who was present for patient positioning, sterile prep and drape, management of retractors and instruments. He was present through the critical portions of the case including wound closure, application of sterile dressing and transport of the patient to recovery. ANESTHESIA: General regional. SPECIMENS: None. DRAINS: None. COMPLICATIONS: None. BLOOD LOSS: 75 mL PERTINENT HISTORY: This is an 82-year-old female who sustained a twisting fall on her right ankle. She is unable to ambulate, transported and admitted to [facility] and evaluated by the medical service. Orthopedics was consulted and the patient was scheduled for surgery when stabilized and optimized. All potential risks, benefits, complications, alternatives, rehab, potential for incomplete relief of symptoms, need for surgery, DVT, PE, , persistent pain, swelling, scarring, weakness, neurovascular injury, wound complications, hardware failure, nonunion, malunion, bone fracture discussed with the patient and his family. They all decided to proceed with procedure as indicated. DESCRIPTION OF PROCEDURE: The patient was taken to the operative suite after popliteal block had been administered. She was then placed supine on the operating table. I reviewed consent and identification of proper operative site, the patient was anesthetized, LMA was placed. Tourniquet was placed high on the right thigh over cast padding. Right lower extremity was sterilely prepped and draped in the usual fashion, elevated and exsanguinated with Esmarch bandage, tourniquet inflated to 375 mmHg. Next, a #15 blade scalpel was used to make an incision over the lateral malleolus of the fibula extending proximally. The incision was deepened through subcutaneous tissue. Meticulous hemostasis was achieved with electrocautery. Full thickness skin flaps developed. The sensory cutaneous nerves were retracted and protected when possible. The peroneal nerves were retracted and protected posteriorly and the fracture was then carefully identified and then debrided and irrigated with sterile normal saline. Debridement was performed with a dental pick and forceps. The fracture was then reduced using bone reduction forceps under live fluoroscopic assistance. Next, a single 3.5-mm lag screw was placed in a live fluoroscopic assistance, stabilizing and anatomically compressing the fracture. This was then followed by, used an 8-hole plate which was contoured to fit the lateral aspect of the fibula and a locking one-third tubular Synthes plate was then used to anatomically fix and stabilize the lateral malleolar fracture. Next, due to the quality of the medial malleolar reduction indirectly after reduction of the lateral malleolus, decision was made to percutaneously fix the medial malleolus, which was then repaired through 2 small stab incisions over the medial aspect of the distal tibia and then a hemostat was then used to carefully spread soft tissue and then two 4.0 cannulated screws were placed into the medial malleolus, which were also drilled and countersunk to achieve anatomic reduction and fixation of the medial malleolus. Next, the guide pins were removed. All incisions were then copiously irrigated with sterile normal saline followed by closure of the medial incisions with 4-0 nylon sutures and a lateral incision was then closed using 2-0 Vicryl in the deep soft tissue, 3-0 Vicryl in the dermis and then 4-0 nylon sutures used to close the skin. Final radiographs were obtained in AP and lateral projections followed by application of a sterile dressing and a bulky Quang Mora plaster splint, which was held in neutral dorsiflexion. Tourniquet was released, the patient was awakened and taken to recovery in stable condition. I attest to the content of the Intraoperative Record and any orders documented therein. Any exception s are noted below.
[2018-05-24] MEDS: OXYCODONE HCL IR 5 MG TAB (IMMEDIATE RELEASE) PO PRN ×3 (02:16→20:28)
[2018-05-24 06:01] LABS: Hematocrit (blood only) 30.7 % (37-47); Hemoglobin 9.6 g/dL (12.0-16.0); Mean Corpuscular Hgb Conc 31.3 g/dL (32-36); Mean Corpuscular Volume 95.3 fL (80-100); Mean Platelet Volume 11.2 fL (7.4-10.4); Platelet Count 153 K/uL (130-400); RDW Standard Deviation 48.6 fL (36.4-46.3); Red Blood Count 3.22 M/uL (4.2-5.4); White Blood Count 13.12 K/uL (4.8-10.8)
[2018-05-24 06:41] LABS: BUN Creatinine Ratio 32.3 (10-20); Blood Urea Nitrogen 38 mg/dl (7-18); Calcium 8.2 mg/dl (8.5-10.1); Carbon Dioxide 35 mmol/L (21-32); Chloride 102 mmol/L (98-107); Creatinine Clr Calc Pharmacy 38.1 ml/min; Est GFR (African American) 51.5; Est GFR (Non-African American) 44.4; Glucose 183 mg/dl (70-99); Potassium 4.3 mmol/L (3.5-5.1); Sodium 140 mmol/L (136-145)
[2018-05-24 06:46] LABS: Troponin I < 0.015 ng/ml (0-0.045)
--- NOTE | 2018-05-24 07:28 | Fluoroscopy Report ---
FL ankle RT min 3V RTN CLINICAL HISTORY: RT ANKLE ORIF COMPARISON STUDY: Right ankle radiographs May 19, 2018. FLUOROSCOPY TIME: 30 seconds. FLUOROSCOPIC IMAGES: 2 FINDINGS: Distal right fibular plate and screws fixate a fibular fracture. Fracture alignment appears anatomic. 2 screws within the medial malleolus fixate the medial malleolus fracture which appears an atomic. There is no ankle mortise widening. The hardware is intact. There are no unexpected radiopaqu e foreign bodies. IMPRESSION: Expected findings following internal fixation of a bimalleolar right ankle fracture. Electronically signed by: Cristian Aguilar M.D. 05/23/2018 2:57 PM
[2018-05-24] MEDS: TRAMADOL HCL 50 MG TABLET PO PRN (07:47)
[2018-05-24] MEDS: ACETAMINOPHEN 325 MG TAB PO PRN (07:48)
[2018-05-24] MEDS: ATORVASTATIN 20 MG TAB PO SCH (07:51)
[2018-05-24] MEDS: CALCIUM 600MG + VIT D 400 IU TAB PO SCH (07:51)
[2018-05-24] MEDS: AMLODIPINE BESYLATE 5 MG TAB PO SCH (07:51)
[2018-05-24] MEDS: DULOXETINE HCL 60 MG CAP PO SCH (07:52)
[2018-05-24] MEDS: GABAPENTIN 300 MG CAP PO SCH ×2 (07:52→20:24)
[2018-05-24] MEDS: ALBUTEROL HFA INHALER 8.5 GM INH SCH ×4 (07:52→20:31)
[2018-05-24] MEDS: MIRABEGRON ER 25 MG TAB PO SCH (07:53)
[2018-05-24] MEDS: LOSARTAN POTASSIUM 25 MG TAB PO SCH (07:53)
[2018-05-24] MEDS: METOPROLOL TARTRATE 100 MG TAB PO SCH ×2 (07:54→20:23)
[2018-05-24] MEDS: PANTOprazole 40 MG TAB PO SCH (07:54)
[2018-05-24] MEDS: ASPIRIN 81 MG ECTAB PO SCH ×2 (07:54→20:22)
[2018-05-24] MEDS: DOCUSATE SODIUM 100 MG CAP PO SCH ×2 (07:55→20:28)
[2018-05-24] MEDS: NYSTATIN POWDER 15GM BTL EXT SCH ×2 (07:56→20:22)
[2018-05-24] MEDS: INSULIN ASPART 100 UNITS/ML 3 ML PEN SC SCH ×4 (08:02→20:33)
--- NOTE | 2018-05-24 09:26 | Orthopedic Progress Note ---
Date of Service May 24, 2018 Assessment & Plan (1) Bimalleolar fracture of right ankle: POD #1 s/p ORIF right bimalleolar ankle fx. NWB RLE at all times. Splint on the RLE at all times. Pain control DVT prophylaxis ASA 81 mg BID D/C planning--patient would like [facility]. OK to discharge from ortho standpoint. Follow up with Dr. Limon's clinic in 1 week for wound check. Subjective Right ankle: pain controlled this morning. No complaints with the ankle. Has been NWB RLE. States she would like to go to [facility] upon d/c. Physical Exam Vital Signs (Past 24 Hours): Last Vital Signs Temp 36.7 C 05/24/18 06:55 Pulse 94 H 05/24/18 06:55 Resp 16 05/24/18 06:55 BP 181/77 H 05/24/18 06:55 Pulse Ox 93 05/24/18 06:55 Constitutional: WD/WN, vitals as above Musculoskeletal: Ankle: + limited ROM of ankle (Right ankle: Splint clean/dry/intact. Toes are mobile. Cap refill <2 sec.); ankle normal to inspection and no deformity Psychiatric: A+Ox3, euthymic affect (1) Bimalleolar fracture of right ankle Encounter type: initial encounter Fracture type: closed Qualified Code(s): S82.841A - Displaced bimalleolar fracture of right lower leg, initial encounter for closed fracture
[2018-05-24] MEDS: cefTRIAXone SODIUM 1,000 MG in DEXTROSE 5% 50 ML IV SCH (10:16)
[2018-05-24] MEDS: MONTELUKAST SODIUM 10 MG TABLET PO SCH (20:22)
--- NOTE | 2018-05-24 21:26 | Hospitalist Progress Note ---
Date of Service May 24, 2018 Assessment & Plan (1) Encephalopathy acute: - On 05/23 patient was noted to have an acute change in mentation - with diffculty arousing, blank staring, and not verbalizing; Also exhibiting signs of chest discomfort - Troponins negative; Head CT negative for acute findings; some mild CO2 retention on ABG; CXR with developing infiltrate - As the evening advanced she became more at baseline - possibly this was toxic encephalopathy from multiple medications/anesthesia/maybe some CO2 retention - currently resolved Present on Admission?: No (2) Acute kidney injury superimposed on chronic kidney disease: - Had a mild increase in Cr on labs during her unresponsive episodes but currently resolved on F/U labs - will monitor Present on Admission?: Yes (3) Acute blood loss anemia: - Due to surgical losses/dilution - no indication for transfusion - will monitor Present on Admission?: Yes (4) Pneumonia: - Developing infiltrate on CXR on 05/24 - had a mild low grade fever prior to surgery - symptoms maki this is likely given productive cough and O2 needs, as well as she has rhonchi and some increased wheezing on examination - Given her lethargy yesterday an aspiration component could be possible but will watch for need to adjust antibiotics; as well she has been hospitalized several days however is clinically doing well without broadened Abx - will monitor - Rocephin 1 g IV daily but if worsening of symptoms or failure to wean may need to consider broadened Abx - Duonebs Present on Admission?: No (5) Bimalleolar fracture of right ankle: - Osteoporosis with pathological fracture of R ankle - Presented with right ankle fracture following fall at home; fall may be related to pre-syncope/orthostatic hypotension - Ankle XR showed bimalleolar fractures with associated joint effusion and soft tissue swelling. - Pain control with home tramadol prn; PRN Tylenol and PRN Dilaudid - Ortho following - appreciate assistance - ORIF on 05/23 - DVT prophylaxis - ASA 81 mg BID - PT/OT -- appreciate assessment - patient anticipating [facility] referral -- anticipate a couple days post-op recovery so likely around weekend time can likely go to rehab if no complication - Ortho following - cleared from their perspective - will need F/U Present on Admission?: Yes (6) Chronic lumbar pain: - Related to sciatica. - Continue Cymbalta 60 mg daily and Gabapentin 300 mg BID. - Continue home Tramadol PRN - Sees [facility] pain management in outpatient setting. Present on Admission?: Yes (7) Coronary artery disease: - Placement of drug eluting stent in the LAD in 2009 following anterior septal wall PA in May 2009. - Continue statin, beta nel, will resume ASA when okay with orthopedics Present on Admission?: Yes (8) Benign essential hypertension: - Continue Amlodipine 10 mg daily, Losartan 25 mg daily, and Metoprolol 100 mg BID - Follow orthostatic BPs Present on Admission?: Yes (9) Hyperlipidemia: - Continue Lipitor 20 mg daily. Present on Admission?: Yes (10) Chronic diastolic heart failure: - Echo in Nov 2017 showed EF 50-55%, mild LVH, trace aortic regurg, trace pulmonic regurg and trace tricupsid regurg. - Monitor net I/O's and daily weights. - Continue BB as prescribed. - No signs of decompensation at this time Present on Admission?: Yes (11) Cerebrovascular disease: - Per previous cardiology note, concern for old left parietal stroke on CT scan in 2007. - Conservative treatment with ASA/statin Present on Admission?: Yes (12) Carotid stenosis: - Last carotid doppler in Mar 2016. - Continue aspirin, statin and BP meds. - Will need recheck doppler in Feb 2019 per outpatient notes. Present on Admission?: Yes (13) Type 2 diabetes mellitus: - Hold Metformin 500 mg daily and cover with SSI - Hemoglobin A1C is 6.6 Present on Admission?: Yes (14) Osteopenia: - DEXA scan in July 2016. - Monitor Vit D levels as outpatient. Present on Admission?: Yes (15) Urinary incontinence: - Continue Myrbetriq as prescribed. Present on Admission?: Yes (16) GERD (gastroesophageal reflux disease): - Has history of peptic ulcer disease and esophageal stricture s/p dilation in the past. - PPI PO daily. Present on Admission?: Yes (17) Anxiety: - Continue Duloxetine as prescribed. Present on Admission?: Yes (18) Allergic rhinitis: - Singulair 10 mg daily. Present on Admission?: Yes (19) DVT prophylaxis: - SCDs/ASA 81 mg BID Dispo: Await respiratory improvement; if stable on monitor overnight likely to Medical tomorrow - maybe to SNF over weekend? Subjective Reports feeling well today and during my visit denied ankle pain. CXR shows a developing infiltrate and will treat. She is appearing back to baseline mentation maki Verbalizes no complaints Constitutional: no fever and no chills Ear, Nose, Mouth, Throat: no sore throat Respiratory: + cough and + sputum production; no dyspnea Cardiovascular: no chest pain, no palpitations and no lightheadedness Gastrointestinal: no abdominal pain, no nausea, no vomiting, no constipation and no diarrhea/loose stools Genitourinary (Female): no dysuria Musculoskeletal: no joint pain Neurologic: + numbness (chronic neuropathy - not worsening) Physical Exam Vital Signs (Past 24 Hours): Last Vital Signs Temp 36.8 C 05/24/18 19:23 Pulse 92 H 05/24/18 19:23 Resp 16 05/24/18 19:23 BP 135/69 05/24/18 19:23 Pulse Ox 93 05/24/18 19:23 Constitutional: WD/WN, vitals as above well developed; no acute distress and not ill appearing Eyes: + anicteric sclerae ENMT: Ears: no hearing impairment Neck: trachea midline Respiratory: normal respiratory effort Auscultation: + diminished lung sounds, + rhonchi and + wheezes Cardiovascular: RRR, no murmur, no edema Gastrointestinal (Abdomen): Inspection/Auscultation: normal bowel sounds Percussion/Palpation: abdomen soft; abdomen nontender Musculoskeletal: Head/Neck/Chest: normocephalic, head atraumatic and neck supple Extremities: no cyanosis and no clubbing Skin: no rashes, warm and dry + rash (mild erythema of R abdominal skin fold with one cracked area of skin) Neurologic: moves all extremities Psychiatric: A+Ox3, euthymic affect (1) Bimalleolar fracture of right ankle Encounter type: initial encounter Fracture type: closed Qualified Code(s): S82.841A - Displaced bimalleolar fracture of right lower leg, initial encounter for closed fracture
[2018-05-25] MEDS: INSULIN ASPART 100 UNITS/ML 3 ML PEN SC SCH ×4 (08:45→21:16)
[2018-05-25] MEDS: cefTRIAXone SODIUM 1,000 MG in DEXTROSE 5% 50 ML IV SCH (10:01)
[2018-05-25] MEDS: METOPROLOL TARTRATE 100 MG TAB PO SCH ×2 (10:45→21:14)
[2018-05-25] MEDS: MIRABEGRON ER 25 MG TAB PO SCH (10:45)
[2018-05-25] MEDS: ASPIRIN 81 MG ECTAB PO SCH ×2 (10:46→21:15)
[2018-05-25] MEDS: LOSARTAN POTASSIUM 25 MG TAB PO SCH (10:46)
[2018-05-25] MEDS: CALCIUM 600MG + VIT D 400 IU TAB PO SCH (10:48)
[2018-05-25] MEDS: GABAPENTIN 300 MG CAP PO SCH ×2 (10:48→21:14)
[2018-05-25] MEDS: AMLODIPINE BESYLATE 5 MG TAB PO SCH (10:48)
[2018-05-25] MEDS: ATORVASTATIN 20 MG TAB PO SCH (10:48)
[2018-05-25] MEDS: PANTOprazole 40 MG TAB PO SCH (10:48)
[2018-05-25] MEDS: DULOXETINE HCL 60 MG CAP PO SCH (10:48)
[2018-05-25] MEDS: NYSTATIN POWDER 15GM BTL EXT SCH ×2 (10:50→21:14)
[2018-05-25] MEDS: ALBUTEROL HFA INHALER 8.5 GM INH SCH (10:54)
--- NOTE | 2018-05-25 11:06 | Hospitalist Progress Note ---
Date of Service May 25, 2018 Assessment & Plan (1) Encephalopathy acute: - On 05/23 patient was noted to have an acute change in mentation - with difficulty arousing, blank staring, and not verbalizing; Also exhibiting signs of chest discomfort - Troponins negative; Head CT negative for acute findings; some mild CO2 retention on ABG; CXR with developing infiltrate - As the evening advanced she became more at baseline - possibly this was toxic encephalopathy from multiple medications/anesthesia/maybe some CO2 retention - currently resolved - On 05/25 she is more confused in the AM - not sure where she is however remembers she fell and had surgery on her ankle; she is tearful and asking for Ashley -- She continues to have a low grade fever and will broaden antibiotics to Zosyn - this still could be some hospital delirium/toxic given pain medications/ or infectious (2) Acute kidney injury superimposed on chronic kidney disease: - Stage III - Had a mild increase in Cr on labs during her unresponsive episodes but currently resolved on F/U labs - will monitor (3) Acute blood loss anemia: - Due to surgical losses/dilution - no indication for transfusion - will monitor (4) Pneumonia: - Developing infiltrate on CXR on 05/24 - had a mild low grade fever prior to surgery and now continuing- symptoms-maki this is likely given productive cough and O2 needs, as well as she has rhonchi and some increased wheezing on examination - Given her lethargy on 05/24 an aspiration component as well she has been hospitalized several days - will stop Rocephin and cover with Zosyn at this time - Duonebs LEYDI and PRN (5) Bimalleolar fracture of right ankle: - Osteoporosis with pathological fracture of R ankle - Presented with right ankle fracture following fall at home; fall may be related to pre-syncope/orthostatic hypotension - Ankle XR showed bimalleolar fractures with associated joint effusion and soft tissue swelling. - Pain control with home tramadol prn; PRN Tylenol and PRN Dilaudid - Ortho following - appreciate assistance - ORIF on 05/23 - DVT prophylaxis - ASA 81 mg BID - PT/OT -- appreciate assessment and ongoing services- patient anticipating [facility] referral - Ortho following - cleared from their perspective - will need F/U (6) Chronic lumbar pain: - Related to sciatica. - Continue Cymbalta 60 mg daily and Gabapentin 300 mg BID. - Continue home Tramadol PRN - Sees [facility] pain management in outpatient setting. (7) Coronary artery disease: - Placement of drug eluting stent in the LAD in 2009 following anterior septal wall GA in May 2009. - Continue statin, beta nel, will resume ASA when okay with orthopedics (8) Benign essential hypertension: - Continue Amlodipine 10 mg daily, Losartan 25 mg daily, and Metoprolol 100 mg BID (9) Hyperlipidemia: - Continue Lipitor 20 mg daily. (10) Chronic diastolic heart failure: - Echo in Nov 2017 showed EF 50-55%, mild LVH, trace aortic regurg, trace pulmonic regurg and trace tricupsid regurg. - Monitor net I/O's and daily weights. - Continue BB as prescribed. - No signs of decompensation at this time (11) Cerebrovascular disease: - Per previous cardiology note, concern for old left parietal stroke on CT scan in 2007. - Conservative treatment with ASA/statin (12) Carotid stenosis: - Last carotid doppler in Mar 2016. - Continue aspirin, statin and BP meds. - Will need recheck doppler in Feb 2019 per outpatient notes. (13) Type 2 diabetes mellitus: - Hold Metformin 500 mg daily and cover with SSI - Hemoglobin A1C is 6.6 (14) Osteopenia: - DEXA scan in July 2016. - Monitor Vit D levels as outpatient. (15) Urinary incontinence: - Continue Myrbetriq as prescribed. (16) GERD (gastroesophageal reflux disease): - Has history of peptic ulcer disease and esophageal stricture s/p dilation in the past. - PPI PO daily. (17) Anxiety: - Continue Duloxetine as prescribed. (18) Allergic rhinitis: - Singulair 10 mg daily. (19) DVT prophylaxis: - SCDs/ASA 81 mg BID Dispo: Await respiratory improvement and monitoring given suspected pneumonia Subjective Patient is tearful and confused this morning. She stated she didn't know where she was or what was going on. She did calm some when told she was in the hospital and did remember she had her ankle operated on. She was tearful as she wanted Complains of L shoulder base of neck pain that started from her fall as she does remember falling. No meningeal signs with head tilt Continues with low grade fever which could be caused by atelectasis but is possible this is a pneumonia developing Review of Systems Other (limited due to confusion) Constitutional: no fever and no chills Respiratory: + cough and + sputum production; no dyspnea Cardiovascular: no chest pain Gastrointestinal: no abdominal pain Musculoskeletal: + joint pain (Back of L shoulder/base of neck) Physical Exam Vital Signs (Past 24 Hours): Last Vital Signs Temp 37.6 C H 05/25/18 04:40 Pulse 85 05/25/18 04:40 Resp 18 05/25/18 04:40 BP 141/57 H 05/25/18 04:40 Pulse Ox 93 05/25/18 04:40 Constitutional: + acute distress (mild - emotionally driven); not ill appearing Eyes: + anicteric sclerae ENMT: Ears: no hearing impairment Neck: trachea midline Respiratory: normal respiratory effort Auscultation: + diminished lung sounds, + rhonchi and + wheezes Cardiovascular: RRR, no murmur, no edema Gastrointestinal (Abdomen): Inspection/Auscultation: normal bowel sounds Percussion/Palpation: abdomen soft; abdomen nontender Musculoskeletal: Head/Neck/Chest: normocephalic, head atraumatic and neck supple Extremities: no cyanosis and no clubbing movement of toes and reporting sensation intact to touch Neurologic: moves all extremities Psychiatric: Orientation: alert, oriented to person and cooperative; + not oriented to place and + not oriented to time Affect: + tearful affect Thought Content: + paranoid (1) Bimalleolar fracture of right ankle Encounter type: initial encounter Fracture type: closed Qualified Code(s): S82.841A - Displaced bimalleolar fracture of right lower leg, initial encounter for closed fracture
[2018-05-25] MEDS ORDERED: PIPERACILL/TAZOBAC CONSULT ACTIVE PRN (11:26)
[2018-05-25] MEDS ORDERED: PIPERACILLIN/TAZOBACTAM 3.375 GM in DEXTROSE 5% 100 ML IV ONE (11:45)
[2018-05-25] MEDS: LIDOCAINE 5% 1 PATCH TD SCH (12:37)
[2018-05-25] MEDS: ALBUT/IPRATROP 3MG/0.5MG NEB 3 ML VIAL NEB SCH ×3 (12:57→20:05)
[2018-05-25 14:10] LABS: Basophils # (auto) 0.02 K/uL (0-0.2); Basophils % (auto) 0.2 %; Eosinophils # (auto) 0.18 K/uL (0-0.5); Eosinophils % (auto) 1.7 %; Hematocrit (blood only) 27.8 % (37-47); Hemoglobin 8.9 g/dL (12.0-16.0); Immature Granulocytes # (auto) 0.04 K/uL (0.00-0.02); Immature Granulocytes % (auto) 0.4 %; Lymphocytes # (auto) 1.57 K/uL (1.2-3.4); Lymphocytes % (auto) 14.6 %; Mean Corpuscular Volume 96.2 fL (80-100); Mean Platelet Volume 10.6 fL (7.4-10.4); Monocytes % (auto) 13.9 %; Neutrophils # (auto) 7.48 K/uL (1.4-6.5); Neutrophils % (auto) 69.2 %; Platelet Count 149 K/uL (130-400); RDW Coefficient of Variation 13.9 % (11.5-14.5); RDW Standard Deviation 48.5 fL (36.4-46.3); Red Blood Count 2.89 M/uL (4.2-5.4); White Blood Count 10.79 K/uL (4.8-10.8)
[2018-05-25 14:33] LABS: RBC Morphology Unremarkable
[2018-05-25 14:35] LABS: BUN Creatinine Ratio 31.4 (10-20); Calcium 8.2 mg/dl (8.5-10.1); Creatinine Clr Calc Pharmacy 44.6 ml/min; Est GFR (African American) 61.6; Est GFR (Non-African American) 53.2; Potassium 4.3 mmol/L (3.5-5.1)
--- NOTE | 2018-05-25 15:00 | Orthopedic Progress Note ---
Date of Service May 25, 2018 Assessment & Plan (1) Bimalleolar fracture of right ankle: POD #2 s/p ORIF right bimalleolar ankle fx. NWB RLE at all times. Splint on the RLE at all times. Pain control DVT prophylaxis ASA 81 mg BID D/C planning--plan for [facility] tomorrow if a bed is available. OK to discharge from ortho standpoint. Follow up with Dr. Limon[facility] clinic in 1 week for wound check. Subjective Pt resting comfortably this AM. Pain controlled post op day #2. NWB on the RLE at all times. Denies CP, SOB, LH. Hoping to get to [facility] tomorrow. Physical Exam Vital Signs (Past 24 Hours): Last Vital Signs Temp 37.8 C H 05/25/18 10:40 Pulse 109 H 05/25/18 10:40 Resp 20 05/25/18 10:40 BP 151/83 H 05/25/18 10:40 Pulse Ox 94 05/25/18 11:50 Constitutional: WD/WN, vitals as above Musculoskeletal: Ankle: + limited ROM of ankle (Right ankle: Splint clean/dry/intact. Toes are mobile. Cap refill <2 sec.); ankle normal to inspection and no deformity Psychiatric: A+Ox3, euthymic affect (1) Bimalleolar fracture of right ankle Encounter type: initial encounter Fracture type: closed Qualified Code(s): S82.841A - Displaced bimalleolar fracture of right lower leg, initial encounter for closed fracture
[2018-05-25] MEDS: DOCUSATE SODIUM 100 MG CAP PO SCH ×2 (15:29→21:17)
[2018-05-25] MEDS: PIPERACILLIN/TAZOBACTAM 3.375 GM in DEXTROSE 5% 100 ML IV SCH (17:39)
[2018-05-25] MEDS: MONTELUKAST SODIUM 10 MG TABLET PO SCH (21:15)
[2018-05-26] MEDS: PIPERACILLIN/TAZOBACTAM 3.375 GM in DEXTROSE 5% 100 ML IV SCH ×2 (02:26→12:00)
[2018-05-26] MEDS: ALBUT/IPRATROP 3MG/0.5MG NEB 3 ML VIAL NEB SCH ×4 (07:02→19:14)
[2018-05-26 07:37] LABS: Creatinine Clr Calc Pharmacy 45.3 ml/min; Est GFR (African American) 64.7; Est GFR (Non-African American) 55.9
[2018-05-26] MEDS: CALCIUM 600MG + VIT D 400 IU TAB PO SCH (09:12)
[2018-05-26] MEDS: MIRABEGRON ER 25 MG TAB PO SCH (09:12)
[2018-05-26] MEDS: DULOXETINE HCL 60 MG CAP PO SCH (09:12)
[2018-05-26] MEDS: PANTOprazole 40 MG TAB PO SCH (09:12)
[2018-05-26] MEDS: NYSTATIN POWDER 15GM BTL EXT SCH ×2 (09:12→21:02)
[2018-05-26] MEDS: LIDOCAINE 5% 1 PATCH TD SCH (09:12)
[2018-05-26] MEDS: GABAPENTIN 300 MG CAP PO SCH ×2 (09:13→21:03)
[2018-05-26] MEDS: AMLODIPINE BESYLATE 5 MG TAB PO SCH (09:13)
[2018-05-26] MEDS: ASPIRIN 81 MG ECTAB PO SCH ×2 (09:16→21:02)
[2018-05-26] MEDS: INSULIN ASPART 100 UNITS/ML 3 ML PEN SC SCH ×4 (09:16→21:05)
[2018-05-26] MEDS: METOPROLOL TARTRATE 100 MG TAB PO SCH ×2 (09:16→21:02)
[2018-05-26] MEDS: ATORVASTATIN 20 MG TAB PO SCH (11:57)
[2018-05-26] MEDS: DOCUSATE SODIUM 100 MG CAP PO SCH ×2 (11:57→21:03)
[2018-05-26] MEDS: LOSARTAN POTASSIUM 25 MG TAB PO SCH (11:57)
--- NOTE | 2018-05-26 15:33 | Hospitalist Progress Note ---
Date of Service May 26, 2018 Assessment & Plan (1) Encephalopathy acute: - On 05/23 patient was noted to have an acute change in mentation - with difficulty arousing, blank staring, and not verbalizing; Also exhibiting signs of chest discomfort -- As the evening advanced she became more at baseline - possibly this was toxic encephalopathy from multiple medications/anesthesia/maybe some CO2 retention - currently resolved - Troponins negative; Head CT negative for acute findings; some mild CO2 retention on ABG; CXR with developing infiltrate - On 05/25 she was more confused in the AM - on reassessment in the evening she recalls events of the night and realizes she was having weird dreams but was also confusing reality with it and was exhibiting some paranoid thoughts - mentioning aliens implanting things on her - Seems to be back at baseline today and will monitor - did have a long conversation with family yesterday who do state she has been having some forgetful moments prior to admission so maybe some mild dementia at baseline contributing to simple hospital delirium is plausible as well (2) Acute kidney injury superimposed on chronic kidney disease: - Stage III - Had a mild increase in Cr on labs during her unresponsive episodes but currently resolved on F/U labs - will monitor (3) Acute blood loss anemia: - Due to surgical losses/dilution - no indication for transfusion - will monitor (4) Pneumonia: - Developing infiltrate on CXR on 05/24 - had a mild low grade fever prior to surgery and now continuing- symptoms-maki this is likely given productive cough and O2 needs - Given her lethargy on 05/24 an aspiration component is possible, as well, she has been hospitalized several days - will stop Rocephin and cover with Zosyn at this time -- Family also states that she does have some difficulty swallowing some foods at baseline so an aspiration event is plausible - If remains stable consider conversion to Augmentin tomorrow - Continue to wean O2 as needed; will repeat CXR today - given events on 05/24 R/O for PE may need to be completed - she was on Lovenox prior to surgery and now on ASA 81 mg BID however seems to be symptomatically improving - Recommend continued incentive spirometry given likely atelectic component - Jenna LEYDI and PRN (5) Bimalleolar fracture of right ankle: - Osteoporosis with pathological fracture of R ankle - Presented with right ankle fracture following fall at home; fall may be related to pre-syncope/orthostatic hypotension - Ankle XR showed bimalleolar fractures with associated joint effusion and soft tissue swelling. - Pain control with home tramadol prn; PRN Tylenol and PRN Dilaudid - Ortho following - appreciate assistance - ORIF on 05/23 - DVT prophylaxis - ASA 81 mg BID - PT/OT -- appreciate assessment and ongoing services- patient anticipating [facility] referral - Ortho following - cleared from their perspective - will need F/U (6) Chronic lumbar pain: - Related to sciatica. - Continue Cymbalta 60 mg daily and Gabapentin 300 mg BID. - Continue home Tramadol PRN - Sees [facility] pain management in outpatient setting. (7) Coronary artery disease: - Placement of drug eluting stent in the LAD in 2009 following anterior septal wall ID in May 2009. - Continue statin, beta nel, will resume ASA when okay with orthopedics (8) Benign essential hypertension: - Continue Amlodipine 10 mg daily, Losartan 25 mg daily, and Metoprolol 100 mg BID (9) Hyperlipidemia: - Continue Lipitor 20 mg daily. (10) Chronic diastolic heart failure: - Echo in Nov 2017 showed EF 50-55%, mild LVH, trace aortic regurg, trace pulmonic regurg and trace tricupsid regurg. - Monitor net I/O's and daily weights. - Continue BB as prescribed. - No signs of decompensation at this time (11) Cerebrovascular disease: - Per previous cardiology note, concern for old left parietal stroke on CT scan in 2007. - Conservative treatment with ASA/statin (12) Carotid stenosis: - Last carotid doppler in Mar 2016. - Continue aspirin, statin and BP meds. - Will need recheck doppler in Feb 2019 per outpatient notes. (13) Type 2 diabetes mellitus: - Hold Metformin 500 mg daily and cover with SSI - Hemoglobin A1C is 6.6 (14) Osteopenia: - DEXA scan in July 2016. - Monitor Vit D levels as outpatient. (15) Urinary incontinence: - Continue Myrbetriq as prescribed. (16) GERD (gastroesophageal reflux disease): - Has history of peptic ulcer disease and esophageal stricture s/p dilation in the past. - PPI PO daily. (17) Anxiety: - Continue Duloxetine as prescribed. (18) Allergic rhinitis: - Singulair 10 mg daily. (19) DVT prophylaxis: - SCDs/ASA 81 mg BID Dispo: Await respiratory improvement and monitoring given suspected pneumonia; likely can D/C early next week pending clinical status Subjective Constitutional: no fever and no chills Respiratory: + cough and + sputum production (reducing); no dyspnea Cardiovascular: no chest pain Gastrointestinal: no abdominal pain, no nausea and no vomiting Genitourinary (Female): no dysuria Musculoskeletal: no joint pain Neurologic: no tingling and no numbness Physical Exam Vital Signs (Past 24 Hours): Last Vital Signs Temp 37.0 C 05/26/18 15:00 Pulse 76 05/26/18 15:00 Resp 26 H 05/26/18 15:00 BP 132/76 05/26/18 15:00 Pulse Ox 92 05/26/18 15:00 Constitutional: WD/WN, vitals as above no acute distress and not ill appearing Eyes: + anicteric sclerae ENMT: Ears: no hearing impairment Neck: trachea midline Respiratory: normal respiratory effort Auscultation: + diminished lung sounds Cardiovascular: RRR, no murmur, no edema Gastrointestinal (Abdomen): Inspection/Auscultation: normal bowel sounds Percussion/Palpation: abdomen soft; abdomen nontender Musculoskeletal: Head/Neck/Chest: normocephalic, head atraumatic and neck supple Extremities: no cyanosis and no clubbing movement of toes and quick cap refill of R foot; SWAPNA wrap and splint in place Neurologic: moves all extremities Psychiatric: A+Ox3, euthymic affect Orientation: alert, oriented to person and cooperative; + not oriented to place and + not oriented to time Affect: + tearful affect Thought Content: + paranoid (1) Bimalleolar fracture of right ankle Encounter type: initial encounter Fracture type: closed Qualified Code(s): S82.841A - Displaced bimalleolar fracture of right lower leg, initial encounter for closed fracture
--- NOTE | 2018-05-26 15:56 | XRay Report ---
XR chest 1V portable CLINICAL HISTORY: F/U infiltrate COMPARISON STUDY: Chest radiograph May 23, 2018. FINDINGS: Lung volumes are at the lower limits of normal. There is no pneumothorax or pleural effusio n. There is no evidence for pulmonary edema. Left basilar opacity has mildly improved. Right lung is clear. IMPRESSION: Persistent, but improving, left lower lung airspace opacity. This may reflect improving pneumonia or atelectasis. Electronically signed by: Cristian Aguilar M.D. 05/26/2018 3:55 PM
[2018-05-26] MEDS ORDERED: Nursing to Pharmacy Communication ONE (19:35)
[2018-05-26] MEDS: MONTELUKAST SODIUM 10 MG TABLET PO SCH (21:04)
[2018-05-27] MEDS: PIPERACILLIN/TAZOBACTAM 3.375 GM in DEXTROSE 5% 100 ML IV SCH ×2 (03:31→13:42)
[2018-05-27 07:39] LABS: Hematocrit (blood only) 27.9 % (37-47); Hemoglobin 8.9 g/dL (12.0-16.0); Mean Corpuscular Hgb Conc 31.9 g/dL (32-36); Mean Corpuscular Volume 94.3 fL (80-100); Mean Platelet Volume 10.8 fL (7.4-10.4); Platelet Count 186 K/uL (130-400); RDW Coefficient of Variation 13.5 % (11.5-14.5); RDW Standard Deviation 46.7 fL (36.4-46.3); Red Blood Count 2.96 M/uL (4.2-5.4); White Blood Count 6.89 K/uL (4.8-10.8)
[2018-05-27] MEDS: ALBUT/IPRATROP 3MG/0.5MG NEB 3 ML VIAL NEB SCH (07:48)
[2018-05-27 08:05] LABS: BUN Creatinine Ratio 28.9 (10-20); Calcium 8.5 mg/dl (8.5-10.1); Creatinine Clr Calc Pharmacy 53.6 ml/min; Est GFR (African American) 79.5; Est GFR (Non-African American) 68.6; Potassium 3.9 mmol/L (3.5-5.1)
[2018-05-27] MEDS: ATORVASTATIN 20 MG TAB PO SCH (09:17)
[2018-05-27] MEDS: LOSARTAN POTASSIUM 25 MG TAB PO SCH (09:17)
[2018-05-27] MEDS: PANTOprazole 40 MG TAB PO SCH (09:18)
[2018-05-27] MEDS: CALCIUM 600MG + VIT D 400 IU TAB PO SCH (09:18)
[2018-05-27] MEDS: METOPROLOL TARTRATE 100 MG TAB PO SCH ×2 (09:18→20:57)
[2018-05-27] MEDS: DULOXETINE HCL 60 MG CAP PO SCH (09:18)
[2018-05-27] MEDS: ASPIRIN 81 MG ECTAB PO SCH ×2 (09:18→20:57)
[2018-05-27] MEDS: DOCUSATE SODIUM 100 MG CAP PO SCH ×2 (09:19→20:57)
[2018-05-27] MEDS: GABAPENTIN 300 MG CAP PO SCH ×2 (09:19→20:57)
[2018-05-27] MEDS: MIRABEGRON ER 25 MG TAB PO SCH (09:19)
[2018-05-27] MEDS: NYSTATIN POWDER 15GM BTL EXT SCH ×2 (09:19→20:57)
[2018-05-27] MEDS: LIDOCAINE 5% 1 PATCH TD SCH (09:20)
[2018-05-27] MEDS: AMLODIPINE BESYLATE 5 MG TAB PO SCH (09:20)
[2018-05-27] MEDS: INSULIN ASPART 100 UNITS/ML 3 ML PEN SC SCH ×4 (09:25→20:58)
--- NOTE | 2018-05-27 19:43 | Hospitalist Progress Note ---
Date of Service May 27, 2018 Assessment & Plan (1) Encephalopathy acute: - On 05/23 patient was noted to have an acute change in mentation - with difficulty arousing, blank staring, and not verbalizing; Also exhibiting signs of chest discomfort -- As the evening advanced she became more at baseline - possibly this was toxic encephalopathy from multiple medications/anesthesia/maybe some CO2 retention - currently resolved - Troponins negative; Head CT negative for acute findings; some mild CO2 retention on ABG; CXR with developing infiltrate - On 05/25 she was more confused in the AM - on reassessment in the evening she recalls events of the night and realizes she was having weird dreams but was also confusing reality with it and was exhibiting some paranoid thoughts - mentioning aliens implanting things on her - Largely at baseline through day but some confusion at night but normally can recall this the following day - did have a long conversation with family 05/25 who do state she has been having some forgetful moments prior to admission so maybe some mild dementia at baseline contributing to simple hospital delirium is plausible as well (2) Acute kidney injury superimposed on chronic kidney disease: - Stage III - Had a mild increase in Cr on labs during her unresponsive episodes but currently resolved on F/U labs - will monitor (3) Acute blood loss anemia: - Due to surgical losses/dilution - no indication for transfusion - will monitor (4) Pneumonia: - Developing infiltrate on CXR on 05/24 - had a mild low grade fever prior to surgery and now continuing- symptoms-maki this is likely given productive cough and O2 needs but given repeat CXR with already showing resolution this could simply be atelectasis - Given her lethargy on 05/23- an aspiration component is possible, as well, she has been hospitalized several days -- Family also states that she does have some difficulty swallowing some foods at baseline so an aspiration event is plausible - Convert IV Abx to Augmentin BID to finish a quick course - likely can cover 7 days - Seems to be clinically improving but if would worsen and given events on 05/24 R/O for PE may need to be completed - she was on Lovenox prior to surgery and now on ASA 81 mg BID - Complaining of L calf pain today and awaiting U/S of LE to R/O DVT - Recommend continued incentive spirometry given likely atelectic component - Jenna PRN (5) Bimalleolar fracture of right ankle: - Osteoporosis with pathological fracture of R ankle - Presented with right ankle fracture following fall at home; fall may be related to pre-syncope/orthostatic hypotension - Ankle XR showed bimalleolar fractures with associated joint effusion and soft tissue swelling. - Pain control with home tramadol prn; PRN Tylenol and PRN Dilaudid - Ortho following - appreciate assistance - ORIF on 05/23 - DVT prophylaxis - ASA 81 mg BID - PT/OT -- appreciate assessment and ongoing services- patient anticipating [facility] referral - Ortho following - cleared from their perspective - will need F/U (6) Chronic lumbar pain: - Related to sciatica. - Continue Cymbalta 60 mg daily and Gabapentin 300 mg BID. - Continue home Tramadol PRN - Sees [facility] pain management in outpatient setting. (7) Coronary artery disease: - Placement of drug eluting stent in the LAD in 2009 following anterior septal wall RI in May 2009. - Continue statin, beta nel, ASA (8) Benign essential hypertension: - Continue Amlodipine 10 mg daily, Losartan 25 mg daily, and Metoprolol 100 mg BID (9) Hyperlipidemia: - Continue Lipitor 20 mg daily. (10) Chronic diastolic heart failure: - Echo in Nov 2017 showed EF 50-55%, mild LVH, trace aortic regurg, trace pulmonic regurg and trace tricupsid regurg. - Monitor net I/O's and daily weights. - Continue BB as prescribed. - No signs of decompensation at this time (11) Cerebrovascular disease: - Per previous cardiology note, concern for old left parietal stroke on CT scan in 2007. - Conservative treatment with ASA/statin (12) Carotid stenosis: - Last carotid doppler in Mar 2016. - Continue aspirin, statin and BP meds. - Will need recheck doppler in Feb 2019 per outpatient notes. (13) Type 2 diabetes mellitus: - Hold Metformin 500 mg daily and cover with SSI - Hemoglobin A1C is 6.6 (14) Osteopenia: - DEXA scan in July 2016. - Monitor Vit D levels as outpatient. (15) Urinary incontinence: - Continue Myrbetriq as prescribed. (16) GERD (gastroesophageal reflux disease): - Has history of peptic ulcer disease and esophageal stricture s/p dilation in the past. - PPI PO daily. (17) Anxiety: - Continue Duloxetine as prescribed. (18) Allergic rhinitis: - Singulair 10 mg daily. (19) DVT prophylaxis: - SCDs/ASA 81 mg BID Dispo: Ashley would like called if she would D/C and did update her today on the phone; Having some moments of confusion largely at night but clinically is doing well, if bed available to [facility] could like D/C tomorrow Subjective Reports feeling well today. Continues to have some sleep disturbance and some confusion overnight. However seems to fully recall these situations but they are slightly twisted in reality. She remains on RA and states her breathing feels well. She denies pain in her ankle. However she complained to nursing staff of L calf pain and awaiting U/S to R/O DVT She is eager to get to rehab. Verbalizes no complaints to me. Constitutional: no fever and no chills Respiratory: + cough; no dyspnea and no sputum production Cardiovascular: no chest pain, no palpitations and no edema Gastrointestinal: no abdominal pain, no nausea, no vomiting, no constipation and no diarrhea/loose stools Genitourinary (Female): + urinary incontinence; no dysuria Neurologic: no tingling and no numbness Physical Exam Vital Signs (Past 24 Hours): Last Vital Signs Temp 36.6 C 05/27/18 15:04 Pulse 81 05/27/18 15:04 Resp 18 05/27/18 15:04 BP 137/66 05/27/18 15:04 Pulse Ox 91 05/27/18 15:04 Constitutional: WD/WN, vitals as above Eyes: + anicteric sclerae ENMT: Ears: no hearing impairment Neck: trachea midline Respiratory: normal respiratory effort Auscultation: + diminished lung sounds Cardiovascular: RRR, no murmur, no edema Gastrointestinal (Abdomen): Inspection/Auscultation: normal bowel sounds Percussion/Palpation: abdomen soft; abdomen nontender Musculoskeletal: Head/Neck/Chest: normocephalic, head atraumatic and neck supple Extremities: no cyanosis and no clubbing splint and yulia wrap in place with movement of toes and sensation grossly intact; cap refill brisk Skin: + rash (mild erythema of R abdominal skin fold with one cracked area of skin) Neurologic: moves all extremities Psychiatric: A+Ox3, euthymic affect (1) Bimalleolar fracture of right ankle Encounter type: initial encounter Fracture type: closed Qualified Code(s): S82.841A - Displaced bimalleolar fracture of right lower leg, initial encounter for closed fracture
[2018-05-27] MEDS: MONTELUKAST SODIUM 10 MG TABLET PO SCH (20:57)
[2018-05-27] MEDS: AMOXICILLIN/CLAVULANATE 875 MG TAB PO SCH (20:57)
[2018-05-27] MEDS: ONDANSETRON INJ 2 MG/ML 2 ML VIAL IV PRN (22:11)
--- NOTE | 2018-05-28 06:37 | Ultrasound Report ---
US venous doppler LE LT CLINICAL HISTORY: Left lower extremity pain COMPARISON STUDY: No previous studies for comparison. FINDINGS: Real-time and color flow Doppler imaging were performed. Flow was seen within the femoral, popliteal and calf veins with no intraluminal thrombus demonstrated. The saphenous vein is patent. IMPRESSION: No evidence of left lower extremity DVT. Electronically signed by: Du Acuña M.D. 05/28/2018 6:36 AM
[2018-05-28 07:10] LABS: Hematocrit (blood only) 31.5 % (37-47); Mean Corpuscular Hgb Conc 31.7 g/dL (32-36); Mean Corpuscular Volume 95.2 fL (80-100); Mean Platelet Volume 10.4 fL (7.4-10.4); Platelet Count 212 K/uL (130-400); RDW Coefficient of Variation 13.5 % (11.5-14.5); RDW Standard Deviation 46.9 fL (36.4-46.3); Red Blood Count 3.31 M/uL (4.2-5.4)
[2018-05-28 07:38] LABS: Calcium 8.6 mg/dl (8.5-10.1); Est GFR (African American) 76.1; Est GFR (Non-African American) 65.6; Potassium 3.9 mmol/L (3.5-5.1)
[2018-05-28] MEDS: HydrALAZINE HCL 20 MG/ML VIAL IV PRN (08:04)
[2018-05-28] MEDS: AMOXICILLIN/CLAVULANATE 875 MG TAB PO SCH ×2 (09:00→17:44)
[2018-05-28] MEDS: CALCIUM 600MG + VIT D 400 IU TAB PO SCH (09:02)
[2018-05-28] MEDS: DOCUSATE SODIUM 100 MG CAP PO SCH ×2 (09:04→21:01)
[2018-05-28] MEDS: LOSARTAN POTASSIUM 25 MG TAB PO SCH (09:06)
[2018-05-28] MEDS: DULOXETINE HCL 60 MG CAP PO SCH (09:08)
[2018-05-28] MEDS: ASPIRIN 81 MG ECTAB PO SCH ×2 (09:10→21:02)
[2018-05-28] MEDS: ATORVASTATIN 20 MG TAB PO SCH (09:14)
[2018-05-28] MEDS: METOPROLOL TARTRATE 100 MG TAB PO SCH ×2 (09:14→21:02)
[2018-05-28] MEDS: MIRABEGRON ER 25 MG TAB PO SCH (09:17)
[2018-05-28] MEDS: GABAPENTIN 300 MG CAP PO SCH ×2 (09:18→21:03)
[2018-05-28] MEDS: AMLODIPINE BESYLATE 5 MG TAB PO SCH (09:20)
[2018-05-28] MEDS: PANTOprazole 40 MG TAB PO SCH (09:21)
[2018-05-28] MEDS: INSULIN ASPART 100 UNITS/ML 3 ML PEN SC SCH ×4 (09:33→21:06)
[2018-05-28] MEDS: LIDOCAINE 5% 1 PATCH TD SCH (09:40)
[2018-05-28] MEDS: NYSTATIN POWDER 15GM BTL EXT SCH ×2 (11:24→21:05)
--- NOTE | 2018-05-28 11:59 | Hospitalist Progress Note ---
Date of Service May 28, 2018 Assessment & Plan (1) Encephalopathy acute: - Developed acute encephalopathy on 05/23; has had intermittent episodes of confusion/lethargy over last 5 days. - Head CT negative; repeat CT of head pending due to increased lethargy this morning. - Urinalysis pending to evaluate for UTI. - May be medication induced -- discontinued all narcotics, benzos, sedating medications. - Unlikely related to CO2 retention -- CO2 level now trending down on labs, was mildly elevated on ABG from 05/23/18. - Treatment for PNA as noted below. - May also be related to mild developing dementia vs. acute hospital delirium -- her baseline is unclear. (2) Acute kidney injury: - Creatinine increased to 1.2 on 05/23/18, now at baseline. - Monitor renal function as inpatient. (3) CKD (chronic kidney disease) stage 2, GFR 60-89 ml/min: - Renally dose all meds. (4) Acute blood loss anemia: - Due to surgical losses/dilution. - No indication for transfusion support. (5) Pneumonia: - CXR on 05/23 was concerning for developing left base infiltrate; most recent CXR on 05/26 showed improving infiltrate. - Confusion may be partially related to pneumonia (?aspiration) - Converted Zosyn to Augmentin BID -- will need to complete a 7 day course. - Encourage incentive spirometry. - Consider CT PE; Duplex of LLE was negative for DVT. (6) Bimalleolar fracture of right ankle: - Osteoporosis with fracture of R ankle; fall at home leading to fracture may be related to pre-syncope/orthostatic hypotension - Ankle XR showed bimalleolar fractures with associated joint effusion and soft tissue swelling. - Tylenol prn; avoid narcotics in setting of confusion. - Ortho following, s/p ORIF on 05/23. Will need to follow up as outpatient. - DVT prophylaxis with aspirin 81 mg BID. - PT/OT -- will be discharged to [facility] once medically stable. (7) Chronic lumbar pain: - Related to sciatica. - Continue Cymbalta 60 mg daily and Gabapentin 300 mg BID. - Holding home Tramadol due to confusion. - Sees [facility] pain management in outpatient setting. (8) Coronary artery disease: - Placement of drug eluting stent in the LAD in 2009 following anterior septal wall ND in May 2009. - Continue statin, beta nel, ASA (9) Benign essential hypertension: - Continue Amlodipine 10 mg daily, Losartan 25 mg daily, and Metoprolol 100 mg BID (10) Hyperlipidemia: - Continue Lipitor 20 mg daily. (11) Chronic diastolic heart failure: - Echo in Nov 2017 showed EF 50-55%, mild LVH, trace aortic regurg, trace pulmonic regurg and trace tricupsid regurg. - Monitor net I/O's and daily weights. - Continue BB as prescribed. (12) Cerebrovascular disease: - Per previous cardiology note, concern for old left parietal stroke on CT scan in 2007. - Conservative treatment with ASA/statin (13) Carotid stenosis: - Last carotid doppler in Mar 2016. - Continue aspirin, statin and BP meds. - Will need recheck doppler in Feb 2019 per outpatient notes. (14) Type 2 diabetes mellitus: - Hold Metformin 500 mg daily and cover with SSI. - Hemoglobin A1C is 6.6 (15) Osteopenia: - DEXA scan in July 2016. - Monitor Vit D levels as outpatient. (16) Urinary incontinence: - Continue Myrbetriq as prescribed. (17) GERD (gastroesophageal reflux disease): - Has history of peptic ulcer disease and esophageal stricture s/p dilation in the past. - PPI PO daily. (18) Anxiety: - Continue Duloxetine as prescribed. (19) Allergic rhinitis: - Singulair 10 mg daily. (20) DVT prophylaxis: - SCDs; ASA 81 mg BID Dispo: Discharge to [facility] pending improvement in confusion/lethargy. Supervising Physician Co-Signing Physician Notes PA Supervision Note: I did not personally see or examine the patient today, but I verified all hudson points of AMBER Santiago's assessment and plan with the following exceptions/additions: None Subjective Pt. was very lethargic during initial rounds this morning, did not respond to verbal stimuli. She has had intermittent episodes of confusion during this admission with negative work up. Confusion has been improving overall during the last 24 hours. She was awake and alert in the early afternoon. Pt. denied feeling confused. Was alert to place. Discussed brain MRI -- pt. refused procedure. Will repeat CT head to evaluate for ischemia. U/a also pending to evaluate for UTI. Discharge to [facility] when medically stable. Review of Systems All systems reviewed & are unremarkable except as noted in HPI & below Constitutional: + fatigue and + weakness; no fever, no chills and no anorexia Respiratory: no cough and no dyspnea Cardiovascular: no chest pain, no palpitations and no edema Gastrointestinal: no abdominal pain, no nausea and no constipation Genitourinary (Female): no difficulty urinating Musculoskeletal: no joint pain Integumentary: no rash Neurologic: + confusion Physical Exam Vital Signs (Past 24 Hours): Last Vital Signs Temp 37.3 C 05/28/18 07:59 Pulse 88 05/28/18 07:59 Resp 20 05/28/18 07:59 BP 146/61 H 05/28/18 09:50 Pulse Ox 95 05/28/18 07:59 Physical Exam: General: Resting comfortably in no apparent distress HEENT: NC/AT; PERRLA with EOMI; [place] conjunctiva, MMM. Neck: Supple and nontender Cardiac: RRR Lungs: CTA bilaterally Abdomen: Bowel normoactive X 4; Nontender to palpation Extremities: Warm. No edema present Neuro: No focal weakness; alert to person and place. Skin: No rash Results & Data Laboratory Results 05/28/18 05/28/18 05/28/18 Range/Units 08:16 06:11 06:11 WBC 7.30 (4.8-10.8) K/uL RBC 3.31 L (4.2-5.4) M/uL Hgb 10.0 L (12.0-16.0) g/dL Hct 31.5 L (37-47) % MCV 95.2 (80-100) fL MCH 30.2 (25-34) pg MCHC 31.7 L (32-36) g/dL RDW Std Deviation 46.9 H (36.4-46.3) fL RDW Coeff of Rakesh 13.5 (11.5-14.5) % Plt Count 212 (130-400) K/uL MPV 10.4 (7.4-10.4) fL Sodium 142 (136-145) mmol/L Potassium 3.9 (3.5-5.1) mmol/L Chloride 107 (98-107) mmol/L Carbon Dioxide 31 (21-32) mmol/L Anion Gap 4.0 (3-11) BUN 19 H (7-18) mg/dl Creatinine 0.84 (0.6-1.2) mg/dl Est Cr Clr Drug Dosing 52.0 ml/min Est GFR ( Amer) 76.1 Est GFR (Non-Af Amer) 65.6 BUN/Creatinine Ratio 23.0 H (10-20) Glucose 166 H (70-99) mg/dl POC Glucose 173 H (70-99) Calcium 8.6 (8.5-10.1) mg/dl 05/27/18 05/27/18 05/27/18 Range/Units 20:35 17:10 12:04 WBC (4.8-10.8) K/uL RBC (4.2-5.4) M/uL Hgb (12.0-16.0) g/dL Hct (37-47) % MCV (80-100) fL MCH (25-34) pg MCHC (32-36) g/dL RDW Std Deviation (36.4-46.3) fL RDW Coeff of Rakesh (11.5-14.5) % Plt Count (130-400) K/uL MPV (7.4-10.4) fL Sodium (136-145) mmol/L Potassium (3.5-5.1) mmol/L Chloride (98-107) mmol/L Carbon Dioxide (21-32) mmol/L Anion Gap (3-11) BUN (7-18) mg/dl Creatinine (0.6-1.2) mg/dl Est Cr Clr Drug Dosing ml/min Est GFR ( Amer) Est GFR (Non-Af Amer) BUN/Creatinine Ratio (10-20) Glucose (70-99) mg/dl POC Glucose 188 H 189 H 227 H (70-99) Calcium (8.5-10.1) mg/dl (1) Bimalleolar fracture of right ankle Encounter type: initial encounter Fracture type: closed Qualified Code(s): S82.841A - Displaced bimalleolar fracture of right lower leg, initial encounter for closed fracture
--- NOTE | 2018-05-28 16:56 | CT Scan Report ---
CT head/brain wo con CT DOSE: 767.83 mGy.cm HISTORY: Rule out CVA TECHNIQUE: Multiaxial CT images of the head were performed without the use of intravenous contrast. A dose lowering technique was utilized adhering to the principles of ALARA. Comparison: None. Findings: The paranasal sinuses and mastoid air cells are clear. The calvarium and skull base are int act. The ventricles and sulci are within normal limits. There is no mass, hematoma, midline shift, or acute infarct. Chronic small vessel change throughout both cerebral hemispheres. Impression: No acute intracranial abnormality. Chronic age-related small vessel change. The above report was generated using voice recognition software. It may contain grammatical, syntax or spelling errors. Electronically signed by: Sonny Harrington M.D. 05/28/2018 4:55 PM
[2018-05-28 17:53] LABS: Appearance Urine Clear (Clear); Bilirubin Urine Negative (Negative); Blood Urine Negative (Negative); Color Urine Dark Yellow; Glucose Urine UA Trace (Negative); Ketones Urine Trace (Negative); Leukocyte Esterase Urine Negative (Negative); Nitrite Urine Negative (Negative); Protein Urine Negative (Negative); Specific Gravity Urine 1.025 (1.000-1.030); Urobilinogen Urine Negative (Negative); pH Urine 5.5 (4.5-7.5)
[2018-05-28] MEDS: MONTELUKAST SODIUM 10 MG TABLET PO SCH (21:03)
[2018-05-29 07:57] LABS: BUN Creatinine Ratio 28.8 (10-20); Calcium 8.8 mg/dl (8.5-10.1); Est GFR (African American) 88.7; Est GFR (Non-African American) 76.5; Magnesium 1.6 mg/dl (1.8-2.4); Potassium 3.8 mmol/L (3.5-5.1)
[2018-05-29] MEDS: DOCUSATE SODIUM 100 MG CAP PO SCH ×2 (09:05→09:20)
[2018-05-29] MEDS: ATORVASTATIN 20 MG TAB PO SCH (09:05)
[2018-05-29] MEDS: AMLODIPINE BESYLATE 5 MG TAB PO SCH (09:05)
[2018-05-29] MEDS: PANTOprazole 40 MG TAB PO SCH (09:06)
[2018-05-29] MEDS: AMOXICILLIN/CLAVULANATE 875 MG TAB PO SCH (09:06)
[2018-05-29] MEDS: GABAPENTIN 300 MG CAP PO SCH (09:06)
[2018-05-29] MEDS: DULOXETINE HCL 60 MG CAP PO SCH (09:06)
[2018-05-29] MEDS: METOPROLOL TARTRATE 100 MG TAB PO SCH (09:06)
[2018-05-29] MEDS: LIDOCAINE 5% 1 PATCH TD SCH (09:07)
[2018-05-29] MEDS: MIRABEGRON ER 25 MG TAB PO SCH (09:07)
[2018-05-29] MEDS: CALCIUM 600MG + VIT D 400 IU TAB PO SCH (09:07)
[2018-05-29] MEDS: LOSARTAN POTASSIUM 25 MG TAB PO SCH (09:07)
[2018-05-29] MEDS: ASPIRIN 81 MG ECTAB PO SCH (09:07)
[2018-05-29] MEDS: NYSTATIN POWDER 15GM BTL EXT SCH (09:08)
[2018-05-29] MEDS: INSULIN ASPART 100 UNITS/ML 3 ML PEN SC SCH ×2 (09:11→13:13)
[2018-05-29] MEDS ORDERED: MAGNESIUM SULFATE / D5W 1 GM/100 ML BAG IV SCH (12:30)
[2018-05-29] MEDS ORDERED: MAGNESIUM OXIDE 400 MG TAB PO ONE (12:45)
--- NOTE | 2018-05-29 14:36 | Discharge Summary ---
Date of Service May 29, 2018 Admission HPI Per Admitting Provider 82-year-old female who presents with ankle fracture. Her past medical history includes hypertension and type 2 diabetes. As well as sciatic pain, followed by pain management. She states she was in her usual state of health when earlier this evening she went to step up on a stool in order to get into her bed missed her footing, and reached out for something to grab hold and there was nothing there. She fell to the floor. She recalls every moment of the event. She called EMS and was brought in. On imaging she was found to have bimalleolar fractures of the right ankle. She was given Percocet. She will need a 3 night stay in order to qualify for inpatient rehab as they have no met beds right now. Her sciatic pain has been troublesome for her. Tramadol apparently does not help. She was recommended by pain management for a joint injection which she declined. Although she states she would be willing to try this at this point given the amount of pain in her left anterior thigh that radiates down her leg. She also endorses a 1-1 1/2-week history of dizziness upon going from lying to sitting or sitting to standing. She states she has been told in the past to get up slowly. She states she does feel somewhat dry at this point but she says if she drinks too much water than she urinates. She is incontinent. She wears pads for this. Admission Exam Per Admitting Provider Physical Exam: Vitals noted as above and within normal limits with the exception of hypertension. GENERAL: Awake, alert to person, place, and time, nontoxic-appearing, in no distress HENT: Normocephalic, atraumatic. . Mucus membranes appear dry. EYES: Normal conjunctiva. Sclera non-icteric. EOMI. NECK: Supple. Full range of motion. No JVD RESPIRATORY: Clear to auscultation. Normal work of breathing. CARDIAC: Regular rate, normal rhythm. Extremities warm and well perfused, 2+ radial pulses bilaterally; . ABDOMEN: Soft, non-distended. Bowel sounds are normal. LOWER EXTREMITIES: Inspection of calves reveal cast over right ankle up to the knee, intact. No edema. No discoloration. Neurovascularly intact bilaterally. NEURO: No focal gross focal motor deficits noted. Sensation in tact. CN II-XII grossly in tact. SKIN: Rash not present. No jaundice noted. Significant lesions include senile purpura. PSYCH: Appropriate mood and affect. Cooperative. Exam as done by Lillie Melgoza MD, Pharmacy Services Director. Principal Diagnosis Right Bimalleolar Ankle Fracture Discharge Exam General: Resting comfortably in no apparent distress HEENT: NC/AT; PERRLA with EOMI; [place] conjunctiva, MMM. Neck: Supple and nontender Cardiac: RRR Lungs: CTA bilaterally Abdomen: Bowel normoactive X 4; Nontender to palpation Extremities: Warm. No edema present; Dressing in place over right ankle. Neuro: No focal weakness Skin: No rash Discharge Data Allergies Allergy/AdvReac Type Severity Reaction Status Date / Time azelastine Allergy Intermediate elevated bp Verified 05/19/18 22:30 mivacurium Allergy Mild RASH Verified 05/19/18 22:30 citalopram Allergy Unknown UNKNOWN Verified 05/19/18 22:30 chlorpheniramine AdvReac Intermediate ELEVATED BP Verified 05/19/18 22:30 Corticosteroids AdvReac Intermediate ELEVATED BP Verified 05/19/18 22:30 (Glucocorticoids) fexofenadine AdvReac Intermediate ELEVATED BP Verified 05/19/18 22:30 fluticasone AdvReac Intermediate ELEVATED BP Verified 05/19/18 22:30 hydrocodone AdvReac Intermediate ELEVATED BP Verified 05/19/18 22:30 magnesium salicylate AdvReac Intermediate ELEVATED BP Verified 05/19/18 22:30 salicylates AdvReac Intermediate ELEVATED BP Verified 05/19/18 22:30 Consultations 05/19/18 23:55 ED Decision to Admit Stat 05/20/18 15:26 Consult Orthopedic Surgery Routine 05/21/18 08:45 Consult Case Management - Discharge Planning Routine 05/23/18 11:52 Consult Case Management - Discharge Planning Routine Procedures Performed Operation Date: 05/23/18 10:20 Actual Procedures p Right Ankle Bimalleolar Fracture Open Reduction Internal Fixation(Right) - Slava Limon DO Ordered Studies CXR 05/22, 05/23 and 05/26 Ankle/Foot XR 05/19, 05/2305/23/18 10:20 FL fluoroscopy <1hr Routine 05/23/18 10:35 US - OR guided needle placemen Routine 05/23/18 11:40 FL ankle RT 2V Routine 05/23/18 16:19 CT head/brain wo con Urgent 05/27/18 14:09 US venous doppler LE LT Routine 05/28/18 15:37 CT head/brain wo con Routine Hospital Course (1) Encephalopathy acute: Developed acute encephalopathy on 05/23 post operatively. Code purple was called. Work up, including CT of head, was negative. Unclear etiology of confusion -- may have been related to CO2 retention (noted on ABG) vs. medication induced vs. hospital delirium with dementia. Acute encephalopathy improved overall; she had intermittent episodes of confusion over the next [address] on 05/28 was negative. U/a on 05/28 was also negative for UTI. Sedating medications were discontinued. Pt. was alert and oriented on day of discharge. May have underlying dementia -- will need to be re-evaluated in future with PCP. (2) Acute kidney injury: Creatinine increased to 1.2 on 05/23/18 then trended down. (3) CKD (chronic kidney disease) stage 2, GFR 60-89 ml/min: Renally dosed all meds. (4) Acute blood loss anemia: Due to surgical losses/dilution. Did not require transfusion support. (5) Pneumonia: CXR on 05/23 was concerning for developing left base infiltrate; most recent CXR on 05/26 showed improving infiltrate. There was concern for aspiration PNA. Zosyn IV was initially started for empiric coverage. She was converted to Augmentin PO and will complete a 7 day course. (6) Bimalleolar fracture of right ankle: Osteoporosis with fracture of R ankle; fall at home leading to fracture may be related to pre-syncope/orthostatic hypotension. Ankle XR showed bimalleolar fractures with associated joint effusion and soft tissue swelling. Ortho consulted, s/p ORIF on 05/23. DVT ppx with ASA 81 mg BID. PT/OT recommended SNF placement, will be discharged to [facility]. Will need to follow up with ortho as outpatient. (7) Chronic lumbar pain: Related to sciatica. Continued Cymbalta 60 mg daily and Gabapentin 300 mg BID. Sees [facility] pain management in outpatient setting. (8) Coronary artery disease: Placement of drug eluting stent in the LAD in 2009 following anterior septal wall ID in May 2009. Continued statin, beta nel, ASA. (9) Benign essential hypertension: Continues Amlodipine 10 mg daily, Losartan 25 mg daily, and Metoprolol 100 mg BID (10) Hyperlipidemia: Continued Lipitor 20 mg daily. (11) Chronic diastolic heart failure: Echo in Nov 2017 showed EF 50-55%, mild LVH, trace aortic regurg, trace pulmonic regurg and trace tricupsid regurg. Monitored net I/O's and daily weights. Continued BB as prescribed. (12) Cerebrovascular disease: Per previous cardiology note, concern for old left parietal stroke on CT scan in 2007. Conservative treatment with ASA/statin (13) Carotid stenosis: Last carotid doppler in Mar 2016. Continued aspirin, statin and BP meds. Will need recheck doppler in Feb 2019 per outpatient notes. (14) Type 2 diabetes mellitus: Held Metformin 500 mg daily and covered with SSI. Hemoglobin A1C is 6.6 (15) Osteopenia: DEXA scan in July 2016. (16) Urinary incontinence: Continued Myrbetriq as prescribed. (17) GERD (gastroesophageal reflux disease): Has history of peptic ulcer disease and esophageal stricture s/p dilation in the past. PPI PO daily. (18) Anxiety: Continued Duloxetine as prescribed. (19) Allergic rhinitis: Singulair 10 mg daily. (20) DVT prophylaxis: SCDs; ASA 81 mg BID Pt. was stable for discharge to [facility] on 05/29/2018. Hypomagnesemia -- received mag oxide 400 mg x 1 dose on day of discharge. Total Time Total Time Spent Total Time Spent (In Minutes): >30 minutes Total Time Includes: Examination of the Patient, Discharge Planning, Medication Reconciliation, Communication With Other Providers and Other Discharge Plan Discharge Items Patient Disposition: [facility] Reason For Visit: ANKLE FRACTURE Discharge Diagnosis: Right bimalleolar ankle fracture Condition: Fair Discharge Goals: Decrease discomfort, Improve disease control, Improve function, Increase independence, Improve nutritional status and Prevent disease Activity: Per 'Additional Instructions' section Weightbearing: Right non-weightbearing Non-emergency contact: Primary Care Provider and Surgeon Call non-emergency contact if: you have any medication questions, your symptoms worsen, your pain is not controlled, your pain is worsening, your pain is unusual for you, your pain is concerning for you, you have a fever, your wound has increased redness, your wound has increased drainage and your wound pain has increased Follow-up/Referrals: Ramirez Sherman MD [Primary Care Provider] - Barter,Slava A, DO [Surgeon] - (Follow up in 2 weeks for possible suture removal and casting.) Diet: Carb Consistent or DM2 and Heart Healthy Addtl Provider Instructions: 1. Acute Encephalopathy likely related to pneumonia * Patient developed confusion/lethargy during this admission. Infectious work up was negative with the exception of pneumonia on CXR. CT of the head was also negative. * Please continue Augmentin twice daily to complete a 7 day course (End date: 06/02/18) * Please monitor lab work, including CBC, BMP and Mag level, weekly. Replace electrolytes as needed. * Encourage incentive spirometry use every 1-2 hours while awake. * Please avoid narcotics for pain control due to recent confusion/lethargy. 2. Bimalleolar Fracture * Please schedule a follow up with Dr. Limon from orthopedics in 4-7 days for wound evaluation. * Continue Aspirin 81 mg twice daily for DVT prophylaxis. ACTIVITY RECOMMENDATIONS: Limitations: No weight bearing to affected limb at all times. SPECIAL CARE INSTRUCTIONS: * Take Aspirin 81 mg every 12 hours for 4 weeks. Start on 05.24.18. * Some drainage onto the dressing is normal and is no cause for alarm. * Some swelling is natural especially after walking. * When resting, keep your foot elevated above the level of your heart. * Call [facility] if you notice: -Increased drainage -Fever over 101.5 degrees F -Severe constant pain BANDAGE: * Leave bandage/cast in place unless otherwise directed. * Keep bandage/cast dry at all times. FOLLOW UP VISIT WITH DR. LIMON If appointment is not already scheduled: Please call [facility] after you get home today to schedule a follow-up appointment for [address] Limon at . Prescriptions: Continued duloxetine [Cymbalta] 60 mg capsule,delayed release(DR/EC) 60 mg PO DAILY Qty: 30 RF: 1 atorvastatin [Lipitor] 20 mg tablet 20 mg PO DAILY RF: 0 calcium carbonate-vitamin D3 [Calcium 600 with Vitamin D3] 600 mg(1,500mg) - 200 unit tablet 1 tab PO DAILY RF: 0 amlodipine [Norvasc] 10 mg tablet 10 mg PO DAILY RF: 0 docusate sodium [Colace] 100 mg capsule 100 mg PO QPM RF: 0 vitamin B complex tablet 1 tab PO DAILY RF: 0 albuterol sulfate 90 mcg/actuation HFA aerosol inhaler 2 puffs INH Q6H PRN (Reason: Shortness Of Breath Or Wheezing) RF: 0 metformin [Glucophage] 500 mg tablet 500 mg PO DAILY RF: 0 metoprolol tartrate [Lopressor] 100 mg tablet 100 mg PO BID RF: 0 pantoprazole [Protonix] 40 mg tablet,delayed release (DR/EC) 40 mg PO DAILY RF: 0 losartan [Cozaar] 25 mg tablet 25 mg PO DAILY RF: 0 docusate sodium [Colace] 100 mg capsule 200 mg PO QAM RF: 0 gabapentin 300 mg capsule 300 mg PO BID RF: 0 montelukast [Singulair] 10 mg tablet 10 mg PO QPM RF: 0 mirabegron [Myrbetriq] 25 mg tablet extended release 24 hr 25 mg PO DAILY RF: 0 One Daily For Women 18-0.4 mg Tablet 1 tab PO DAILY RF: 0 Discontinued aspirin [Adult Aspirin Regimen] 81 mg tablet,delayed release (DR/EC) 81 mg PO DAILY RF: 0 tramadol 50 mg tablet 50 mg PO TID PRN (Reason: pain) RF: 0 naproxen sodium [Aleve] 220 mg Tablet 220 mg PO DIRECTED PRN (Reason: Pain) RF: 0 Zay's Leg Cramp 1 tab PO HS RF: 0 Stand-Alone Forms: [facility] Discharge Orders: Discharge Order (Routine); Ordered 05/29/18 Ordered By: Trudy Gann Skilled Items Patient informed of condition?: Yes DNR: Yes Discharge Level of Care: Skilled Communicable Disease: No Discharge Prognosis: Improving Admission Data Admit Date/Time: 05/20/18 01:35 Attending Provider: Trudy Gann Admit Provider: Lillie Melgoza Primary Care Provider: Ramirez Sherman Other Providers: Ramirez Salas ; Catherine Cohen Service: Medical Other Interventions: Discharge Summary Assessment (RN) Last Done: 05/29/18 13:56 Pending Studies at Discharge: No DC Date/Time DO NOT enter until pt leaves facility: 05/29/18 14:15 Supervising Physician Co-Signing Physician Notes PA Supervision Note: I personally saw and examined the patient. I verified all hudson points and agree with AMBER Santiago with the following exceptions and/or additions: Pt anxious about going to SNF. Otherwise has some pain in the hip. Vitals reviewed NAD, obese female anicteric sclerae RRR no mgr CTAB no wcr Ext with ecchymosis rt hip and right distal thigh and knee with dressings in place over hematoma debridement site 1+ pitting edema right leg Stable for dc, treat UTI with Bactrim, f/u on Ur cx after discharge by SNF Pain control PT/OT Wound care for evacuated hematoma with open wound
== END 2018-05-29 14:15 | DRG 492 ==
LOC: ED 21:07 → 3E 05-20 01:35 → SUATTDRO 05-20 01:35 → 3E 05-20 02:05 → 2S 05-23 16:44 → 3N 05-26 14:49
DX: N18.3 Chronic kidney disease, stage 3 (moderate); J18.9 Pneumonia, unspecified organism; Z98.51 Tubal ligation status; K21.9 Gastro-esophageal reflux disease without esophagitis; M54.5 Low back pain; M85.80 Other specified disorders of bone density and structure, unspecified site; G92 Toxic encephalopathy; I95.1 Orthostatic hypotension; F41.9 Anxiety disorder, unspecified; Z79.84 Long term (current) use of oral hypoglycemic drugs; I13.0 Hypertensive heart and chronic kidney disease with heart failure and stage 1 through stage 4 chronic kidney disease, or unspecified chronic kidney disease; I25.10 Atherosclerotic heart disease of native coronary artery without angina pectoris; M19.90 Unspecified osteoarthritis, unspecified site; I67.9 Cerebrovascular disease, unspecified; M80.00XA Age-related osteoporosis with current pathological fracture, unspecified site, initial encounter for fracture; Z79.82 Long term (current) use of aspirin; X58.XXXA Exposure to other specified factors, initial encounter; N17.9 Acute kidney failure, unspecified; E11.40 Type 2 diabetes mellitus with diabetic neuropathy, unspecified; G89.29 Other chronic pain; I50.32 Chronic diastolic (congestive) heart failure; E11.22 Type 2 diabetes mellitus with diabetic chronic kidney disease; E78.5 Hyperlipidemia, unspecified; D62 Acute posthemorrhagic anemia; S82.841A Displaced bimalleolar fracture of right lower leg, initial encounter for closed fracture; Z90.49 Acquired absence of other specified parts of digestive tract; R32 Unspecified urinary incontinence; H26.9 Unspecified cataract

== ENCOUNTER 2018-06-16 08:11 | Inpatient (IN) ==
[2018-06-16] MEDS ORDERED: LEVALBUTEROL HCL 1.25 MG/3 ML NEB NEB STA (08:20)
[2018-06-16] MEDS ORDERED: DEXAMETHASONE **PF** INJ 10 MG/ML VIAL IV ONE (08:20)
[2018-06-16] MEDS ORDERED: DiphenhydrAMINE HCL 50 MG/ML VIAL IV STA (08:20)
[2018-06-16 08:33] LABS: Basophils # (auto) 0.01 K/uL (0-0.2); Basophils % (auto) 0.1 %; Eosinophils # (auto) 0.13 K/uL (0-0.5); Hematocrit (blood only) 40.7 % (37-47); Hemoglobin 12.9 g/dL (12.0-16.0); Immature Granulocytes # (auto) 0.02 K/uL (0.00-0.02); Immature Granulocytes % (auto) 0.2 %; Lymphocytes # (auto) 2.55 K/uL (1.2-3.4); Lymphocytes % (auto) 19.4 %; Mean Corpuscular Hgb Conc 31.7 g/dL (32-36); Mean Corpuscular Volume 93.3 fL (80-100); Mean Platelet Volume 12.2 fL (7.4-10.4); Monocytes # (auto) 0.44 K/uL (0.11-0.59); Monocytes % (auto) 3.3 %; Neutrophils # (auto) 10.01 K/uL (1.4-6.5); Platelet Count 171 K/uL (130-400); RDW Coefficient of Variation 13.8 % (11.5-14.5); RDW Standard Deviation 47.4 fL (36.4-46.3); Red Blood Count 4.36 M/uL (4.2-5.4); White Blood Count 13.16 K/uL (4.8-10.8)
[2018-06-16 08:51] LABS: Alanine Aminotransferase 20 U/L (12-78); Albumin Level 2.7 gm/dl (3.4-5.0); Aspartate Aminotransferase 22 U/L (15-37); BUN Creatinine Ratio 30.3 (10-20); Blood Urea Nitrogen 27 mg/dl (7-18); Calcium 9.4 mg/dl (8.5-10.1); Carbon Dioxide 25 mmol/L (21-32); Chloride 105 mmol/L (98-107); Creatinine Clr Calc Pharmacy 50.9 ml/min; Est GFR (African American) 71.9; Est GFR (Non-African American) 62.1; Glucose 207 mg/dl (70-99); Potassium 4.3 mmol/L (3.5-5.1); Sodium 139 mmol/L (136-145)
[2018-06-16 08:57] LABS: iSTAT Creatinine 0.8 mg/dl (0.6-1.3); iSTAT Hemoglobin 12.6 g/dl (12.0-16.0); iSTAT Ionized Calcium 1.17 mmol/l (1.12-1.32)
[2018-06-16 08:58] LABS: Albumin Globulin Ratio 0.7 (0.9-2); Alkaline Phosphatase 94 U/L (45-117); Bilirubin,Total 0.7 mg/dl (0.2-1); Globulin 4.1 gm/dl (2.5-4.0); NT Pro B Type Natriuretic Pept 396 pg/ml (0-1800); Total Protein 6.8 gm/dl (6.4-8.2); Troponin I < 0.015 ng/ml (0-0.045)
[2018-06-16] MEDS ORDERED: OPTIRAY 320 125ml IV PRN (09:14)
--- NOTE | 2018-06-16 09:16 | XRay Report ---
SINGLE VIEW CHEST CLINICAL HISTORY: Atypical chest pain. FINDINGS: An AP, portable, upright chest radiograph is compared to study dated 05/26/2018. The examina tion is degraded by portable technique and patient rotation. The cardiomediastinal silhouette is unr emarkable, noting atherosclerotic calcification of the thoracic aorta. Chronic interstitial thickenin g is similar to previous. No airspace consolidation or large pleural effusion is identified. No pneum othorax is seen. The skeletal structures are osteopenic. The bony thorax is grossly intact. Degenerat samantha change is noted throughout the thoracic spine. IMPRESSION: No acute cardiopulmonary abnormality. Electronically signed by: Ravi Schwarz M.D. 06/16/2018 9:14 AM
--- NOTE | 2018-06-16 09:29 | CT Scan Report ---
CT ANGIOGRAM OF THE CHEST CLINICAL HISTORY: Atypical chest pain. COMPARISON STUDY: Chest x-ray dated 06/16/2018. TECHNIQUE: Following the IV administration of 89 cc of Optiray 320, CT angiogram of the chest was per formed from the upper abdomen to the thoracic inlet utilizing the pulmonary embolus protocol. Images are reviewed in the axial, sagittal, and coronal planes. 3-D MIPS images are created and assessed. IV contrast was administered without complication. A dose lowering technique was utilized adhering to the principles of ALARA. The examination is significantly degraded by motion artifact as well as by s treak artifact from the arms which could not be fully elevated above the chest. CT DOSE: 493.96 mGy.cm FINDINGS: Thyroid: Imaged portions of the thyroid gland are normal in size and attenuation. Thoracic aorta: There is advanced atherosclerotic calcification of the thoracic aorta, which is justin l in caliber and demonstrates standard 3-vessel arch anatomy. No dissection is seen. Pulmonary vasculature: The pulmonary trunk is normal in caliber. There are no filling defects identif ied in main or lobar pulmonary branches to suggest pulmonary embolus. Evaluation of the segmental and subsegmental branches is significantly degraded by motion artifact. Heart: The heart is mildly enlarged and without pericardial effusion. The coronary arteries are dense ly calcified. Lungs and pleural spaces: Evaluation of the lung parenchyma is degraded by motion artifact. Emphysema tous change is suspected. There patchy foci of tree-in-bud consolidation with mild groundglass change are scattered throughout both lungs. No pleural effusion is identified. Secretions/debris are presen t within the lower lobe airways. Scarring/atelectasis is noted in the lingula. The trachea is clear. Mediastinum: There are mildly enlarged mediastinal lymph nodes. A precarinal node on image #151 measu res 13 mm in short axis. A subcarinal node measures 13 mm in short axis. Caroline: Clear. Axillae: There is no axillary lymphadenopathy. Upper abdomen: The liver is cirrhotic in morphology and heterogeneous in attenuation. There is nodula rity of the surface contour. There is a small hiatal hernia. Cholecystectomy clips are noted. Mild in trahepatic biliary ductal dilatation is identified. Skeletal structures: The skeletal structures are osteopenic. Degenerative change and hyperkyphosis ar e noted in the thoracic spine. Arthritic change is observed in the shoulders. No lytic or blastic bon y lesions are seen. IMPRESSION: 1. Streak and motion compromised examination. 2. There is no evidence of central pulmonary embolus in the main or lobar pulmonary arteries. Evaluat ion of the segmental and subsegmental branches is significantly compromised by motion artifact. 3. Cardiomegaly and emphysema. 4. Patchy tree-in-bud and groundglass consolidation is seen throughout both lungs. The appearance sug gests an infectious/inflammatory pneumonitis. Clinical correlation will be required and a precautiona ry follow-up chest CT is recommended in 3 months time to document resolution. 5. Cirrhotic liver morphology. 6. Mildly enlarged mediastinal lymph nodes are likely on a reactive basis. These can also be reassess ed at follow-up. 7. Additional findings as above. Electronically signed by: Ravi Schwarz M.D. 06/16/2018 9:28 AM
[2018-06-16] MEDS ORDERED: PIPERACILLIN/TAZOBACTAM 4.5 GM/120 ML BAG IV ONE (09:49)
[2018-06-16] MEDS ORDERED: LEVOFLOXACIN/D5W 750 MG/150 ML BAG IV STA (09:49)
[2018-06-16] MEDS ORDERED: PIPERACILL/TAZOBAC CONSULT ACTIVE PRN (09:49)
[2018-06-16 10:49] LABS: Influenza A virus by PCR Neg for Influ A (Neg); Influenza B virus by PCR Neg for Influ B (Neg)
--- NOTE | 2018-06-16 10:54 | History & Physical Report ---
Date of Service June 16, 2018 Assessment & Plan (1) Allergic reaction: - Presented with allergic reaction - may be related to Trospium, was started on 06/05/18 at [facility]. - Received Decadron 10 mg IV, Benadryl 25 mg IV, Ranitidine 50 mg IV with improvement. - Will continue Loratadine 10 mg daily, Ranitidine 150 mg BID as prescribed. - Will start Prednisone 40 mg PO daily (first dose this afternoon) for a 5 day course. - Has been evaluated by dining room attendant cafeteria in past; has documented allergies with side effect of hypertension. Did have urticaria 8-9 years ago with no known cause. (2) Pneumonia: - Was treated with Augmentin PO for PNA during last admission, completed course on 06/02/18. - CT chest in ER showed no PE, patchy tree-in-bud opacities and groundglass opacities in both lungs -- may be related to viral vs. bacterial process. - Received Levaquin/Zosyn in ER; will continue Zosyn & Azithromycin for empiric coverage. - Duonebs q4hr scheduled for SOB/wheezing. - Procalcitonin level is pending; BC and U/a also pending. (3) Acute respiratory failure with hypoxia: - Currently requiring 2L via NC -- on room air at baseline. - Likely related to PNA. (4) CKD (chronic kidney disease) stage 2, GFR 60-89 ml/min: - Renally dose all meds. (5) Bimalleolar fracture of right ankle: - S/p ORIF on 05/23/18. - Continue Tylenol and Oxycodone prn pain. - Aspirin 81 mg BID for DVT ppx. - PT/OT ordered - right non-weight bearing. (6) Chronic lumbar pain: - Related to sciatica. - Continue Cymbalta 60 mg daily and Gabapentin 300 mg BID. - Evaluated by pain management as outpatient. (7) Coronary artery disease: - S/p placement of drug eluting stent in the LAD in 2009 following anterior septal wall NC in May 2009. - Continue statin, aspirin and beta nel as prescribed. (8) Benign essential hypertension: - Continue Amlodipine 10 mg daily, Losartan 50 mg daily (increased at senior care) and Metoprolol 100 mg BID as prescribed. (9) Hyperlipidemia: - Continue statin as prescribed. (10) Chronic diastolic heart failure: - Echo in Nov 2017 showed EF 50-55%, mild LVH. - Monitor net I/O's and daily weights. - Continue BB as prescribed. (11) Cerebrovascular disease: - H/o old left parietal stroke on CT scan in 2007. - Continue aspirin/statin. (12) Carotid stenosis: - Continue aspirin, statin as prescribed. - Will need f/u doppler in Feb 2019 per cardiology notes. (13) Type 2 diabetes mellitus: - Hold home Metformin. - Hemoglobin A1C was 6.6. - BG elevated in setting of steroids; ordered SSI coverage and will consult pharmacy for glycemic management. (14) Osteopenia: - DEXA scan in July 2016. (15) Urinary incontinence: - Continue Myrbetriq as prescribed. - Recently started on Trospium at [facility], will discontinue. (16) GERD (gastroesophageal reflux disease): - Continue PPI daily and Ranitidine 150 mg BID. (17) Anxiety: - Continue Duloxetine as prescribed. (18) Allergic rhinitis: - Continue Singulair as prescribed. (19) DVT prophylaxis: - SCDs; Aspirin 81 mg BID and Lovenox 40 mg subQ q24hr. Dispo: Med/surg for treatment of allergic reaction. History of Present Illness Chief Complaint: Hives Primary Care Provider: [facility] Mrs. Hernandez is an 82 year old female with past medical history of CKD stage 2, chronic lumbar pain, CAD, HTN, HLD, Chronic diastolic heart failure, cerebral vascular disease, carotid stenosis, type II DM, GERD, anxiety, allergic rhinitis, recent bimalleolar fracture who presented from [facility] with hives X 72 hours. Pt. was recently admitted from 05/20-05/29/18 for bimalleolar fracture s/p ORIF on 05/23. She was also diagnosed with pneumonia in the setting of acute encephalopathy and completed a course of Augmentin PO. Pt. completed course of antibiotics -- end date was 06/02/18. She developed hives on Monday evening, 06/13/18. Patient received Solu-medrol 40 mg IV and Benadryl on morning. Pt. was brought to the ER this morning for further evaluation in setting of hives despite conservative treatment. She denies using new bath products, lotions, etc. She was recently started on Trospium for overactive bladder (start date on 06/05/18 per senior care records). Allergic reaction is associated with pruritus. She has shortness of breath -- chronic but slightly increased. Received nebulizer treatments followed by use of O2 via NC at [facility]. Has a non-productive cough, denies nasal congestion, sinus congestion/headache, pharyngitis, chest pain, LE edema. Denies N/V, constipation or diarrhea, abd pain, dysuria or hematuria. Her family did report slight confusion but patient is alert and oriented during exam. She received Dexamethasone 10 mg IV, Benadryl 25 mg IV, Ranitidine 50 mg IV in the ER with improvement in allergic reaction. Also received Xopenex treatment and Zosyn/Levaquin due to concern for ongoing PNA on CXR. Will be admitted for further work up/treatment. Allergies Allergy/AdvReac Type Severity Reaction Status Date / Time azelastine Allergy Intermediate elevated bp Verified 06/16/18 09:36 mivacurium Allergy Mild RASH Verified 06/16/18 09:36 citalopram Allergy Unknown UNKNOWN Verified 06/16/18 09:36 chlorpheniramine AdvReac Intermediate ELEVATED BP Verified 06/16/18 09:36 Corticosteroids AdvReac Intermediate ELEVATED BP Verified 06/16/18 09:36 (Glucocorticoids) fexofenadine AdvReac Intermediate ELEVATED BP Verified 06/16/18 09:36 fluticasone AdvReac Intermediate ELEVATED BP Verified 06/16/18 09:36 hydrocodone AdvReac Intermediate ELEVATED BP Verified 06/16/18 09:36 magnesium salicylate AdvReac Intermediate ELEVATED BP Verified 06/16/18 09:36 salicylates AdvReac Intermediate ELEVATED BP Verified 06/16/18 09:36 Home Medications Home Medications Medication Instructions Recorded Confirmed Type albuterol sulfate HFA 90 2 puffs INH Q6H PRN 11/28/17 06/16/18 History mcg/actuation aerosol inhaler amlodipine 10 mg tablet 10 mg PO QAM 11/28/17 06/16/18 History atorvastatin 20 mg tablet 20 mg PO HS 11/28/17 06/16/18 History docusate sodium 100 mg capsule 100 mg PO HS cap 11/28/17 06/16/18 History docusate sodium 100 mg capsule 200 mg PO QAM cap 11/28/17 06/16/18 History gabapentin 300 mg capsule 300 mg PO BID 11/28/17 06/16/18 History losartan 25 mg tablet 25 mg PO QAM 11/28/17 06/16/18 History metformin 500 mg tablet 500 mg PO QAM tab 11/28/17 06/16/18 History metoprolol tartrate 100 mg tablet 100 mg PO BID 11/28/17 06/16/18 History montelukast 10 mg tablet 10 mg PO QPM 11/28/17 06/16/18 History pantoprazole 40 mg tablet,delayed 40 mg PO QAM 11/28/17 06/16/18 History release vitamin B complex tablet 1 tab PO QAM 11/28/17 06/16/18 History acetaminophen [Tylenol Extra 500 mg PO TIDM 06/16/18 06/16/18 History Strength] acetaminophen [Tylenol] 650 mg PO Q4H PRN 06/16/18 06/16/18 History aspirin 81 mg PO AMHS 06/16/18 06/16/18 History calcium carbonate-vitamin D3 1 tab PO QAM 06/16/18 06/16/18 History [Calcium 600 + D(3)] diphenhydramine HCl [Benadryl 25 mg PO NOW 06/16/18 06/16/18 History Allergy] duloxetine [Cymbalta] 60 mg PO QAM 06/16/18 06/16/18 History ipratropium-albuterol 3 ml INHALATION Q4H PRN 06/16/18 06/16/18 History loratadine 10 mg PO NOW 06/16/18 06/16/18 History loratadine 10 mg PO QAM 06/16/18 06/16/18 History losartan 50 mg PO QAM 06/16/18 06/16/18 History melatonin 5 mg PO HS 06/16/18 06/16/18 History methylprednisolone acetate 40 mg IM NOW 06/16/18 06/16/18 History miconazole nitrate 1 applic TOPICAL BID 06/16/18 06/16/18 History multivitamin 1 tab PO QAM 06/16/18 06/16/18 History oxycodone 5 mg PO Q6H PRN 06/16/18 06/16/18 History polyethylene glycol 3350 [Miralax] 17 g PO QAM 06/16/18 06/16/18 History ranitidine HCl 150 mg PO BID 06/16/18 06/16/18 History ranitidine HCl 150 mg PO NOW 06/16/18 06/16/18 History trospium 20 mg PO QAM 06/16/18 06/16/18 History tuberculin PPD [Tubersol] 5 tb unit INTRADERMAL UD 06/16/18 06/16/18 History Past Med/Surg History Medical History CKD (chronic kidney disease), stage II Chronic diastolic heart failure Chronic lumbar pain Anxiety (Chronic) Arthritis (Chronic) Asthma (Chronic) CAD (coronary artery disease) (Chronic) Cataract (Chronic) Diabetes (Chronic) Diabetic neuropathy (Chronic) Hypertension (Chronic) Kidney disease (Chronic) Lumbago (Chronic) Sciatic nerve pain (Chronic) Surgical History Hx laparoscopic cholecystectomy Hx of tubal ligation Family History Other Cancer Social History Preferred Language: Lao Communication Ability: Effective Ecological Economist Required: No Beliefs That Will Affect Care: None marital status: / marital status details: [facility] Current Living Situation: [facility] current occupational status: retired Other Information That Helps Us Care for You: No Feels Safe at Home: Yes Safety Concerns: Feels Safe At This Time Smoking Status: Never smoker Hx Alcohol Use: No Hx Substance Use: No Review of Systems All systems reviewed & are unremarkable except as noted in HPI & below Constitutional: + fatigue and + weakness; no fever, no chills and no anorexia Ear, Nose, Mouth, Throat: no nasal congestion, no nasal discharge, no post nasal drip, no sinus pain/pressure, no mouth lesions, no dental pain, no sore throat and no dysphagia Respiratory: + cough, + dyspnea and + dyspnea on exertion; no chest congestion, no sputum production and no wheezing Cardiovascular: no chest pain, no palpitations, no lightheadedness, no syncope and no edema Gastrointestinal: no abdominal pain, no nausea, no vomiting, no constipation and no diarrhea/loose stools Genitourinary (Female): no dysuria, no difficulty urinating and no hematuria Musculoskeletal: no back pain, no joint pain and no myalgia Integumentary: + rash, + new lesions (hives ) and + pruritus Neurologic: no headache(s) and no confusion Hematologic / Lymphatic: no easy bleeding and no easy bruising Allergy / Immunological: + rash Physical Exam Vital Signs (Past 24 Hours): Last Vital Signs Temp 36.8 C 06/16/18 08:21 Pulse 92 H 06/16/18 09:30 Resp 18 06/16/18 09:30 BP 150/72 H 06/16/18 09:30 Pulse Ox 97 06/16/18 09:30 Physical Exam: General: Resting comfortably in no apparent distress; A&OX3 HEENT: NC/AT; PERRLA with EOMI; [place] conjunctiva, MMM. Neck: Supple and nontender Cardiac: RRR w/o murmurs, gallops or rubs Lungs: on 2L via NC; diminished in bilat lung lara, otherwise clear throughout. Abdomen: Bowel normoactive X 4; Nontender to palpation Rectal: Deferred : Deferred Back: NO spinous tenderness Extremities: Warm. No edema present. Right ankle with cast in place. Neuro: No focal weakness Skin: Macular erythematous lesions on upper trunk and bilat upper extremities, do not appear to be raised. No open lesions. Results & Data Laboratory Results 06/16/18 06/16/18 06/16/18 Range/Units 10:00 08:42 07:51 WBC (4.8-10.8) K/uL RBC (4.2-5.4) M/uL Hgb (12.0-16.0) g/dL POC Hgb 12.6 (12.0-16.0) g/dl Hct (37-47) % POC Hct 37 (37-47) % MCV (80-100) fL MCH (25-34) pg MCHC (32-36) g/dL RDW Std Deviation (36.4-46.3) fL RDW Coeff of Rakesh (11.5-14.5) % Plt Count (130-400) K/uL MPV (7.4-10.4) fL Immature Gran % (Auto) % Neut % (Auto) % Lymph % (Auto) % Martin % (Auto) % Eos % (Auto) % Baso % (Auto) % Immature Gran # (Auto) (0.00-0.02) K/uL Neut # (Auto) (1.4-6.5) K/uL Lymph # (Auto) (1.2-3.4) K/uL Martin # (Auto) (0.11-0.59) K/uL Eos # (Auto) (0-0.5) K/uL Baso # (Auto) (0-0.2) K/uL POC Sodium 140 (135-144) mEq/L Sodium 139 (136-145) mmol/L POC Potassium 4.0 (3.3-5.0) mEq/L Potassium 4.3 (3.5-5.1) mmol/L POC Chloride 101 (101-112) mEq/L Chloride 105 (98-107) mmol/L Carbon Dioxide 25 (21-32) mmol/L POC Total CO2 27 (24-31) mEq/l Anion Gap 9.0 (3-11) POC Anion Gap 17.0 (16-25) mmol/L POC BUN 24 H (7-18) mg/dl BUN 27 H (7-18) mg/dl Creatinine 0.88 (0.6-1.2) mg/dl POC Creatinine 0.8 (0.6-1.3) mg/dl Est Cr Clr Drug Dosing 50.9 ml/min Est GFR ( Amer) 71.9 Est GFR (Non-Af Amer) 62.1 BUN/Creatinine Ratio 30.3 H (10-20) Glucose 207 H (70-99) mg/dl POC Glucose (other) 227 H (70-99) mg/dl Calcium 9.4 (8.5-10.1) mg/dl POC Ioniz Calcium Eugenie 1.17 (1.12-1.32) mmol/l Total Bilirubin 0.7 (0.2-1) mg/dl AST 22 (15-37) U/L ALT 20 (12-78) U/L Alkaline Phosphatase 94 (45-117) U/L Troponin I < 0.015 (0-0.045) ng/ml NT-Pro-B Natriuret Pep 396 (0-1800) pg/ml Total Protein 6.8 (6.4-8.2) gm/dl Albumin 2.7 L (3.4-5.0) gm/dl Globulin 4.1 H (2.5-4.0) gm/dl Albumin/Globulin Ratio 0.7 L (0.9-2) Lipase 118 (73-393) U/L Specimen Hemolysis Influenza Type A (PCR) Neg for Influ A (Neg) Influenza Type B (PCR) Neg for Influ B (Neg) 06/16/18 Range/Units 07:51 WBC 13.16 H (4.8-10.8) K/uL RBC 4.36 (4.2-5.4) M/uL Hgb 12.9 (12.0-16.0) g/dL POC Hgb (12.0-16.0) g/dl Hct 40.7 (37-47) % POC Hct (37-47) % MCV 93.3 (80-100) fL MCH 29.6 (25-34) pg MCHC 31.7 L (32-36) g/dL RDW Std Deviation 47.4 H (36.4-46.3) fL RDW Coeff of Rakesh 13.8 (11.5-14.5) % Plt Count 171 (130-400) K/uL MPV 12.2 H (7.4-10.4) fL Immature Gran % (Auto) 0.2 % Neut % (Auto) 76.0 % Lymph % (Auto) 19.4 % Martin % (Auto) 3.3 % Eos % (Auto) 1.0 % Baso % (Auto) 0.1 % Immature Gran # (Auto) 0.02 (0.00-0.02) K/uL Neut # (Auto) 10.01 H (1.4-6.5) K/uL Lymph # (Auto) 2.55 (1.2-3.4) K/uL Martin # (Auto) 0.44 (0.11-0.59) K/uL Eos # (Auto) 0.13 (0-0.5) K/uL Baso # (Auto) 0.01 (0-0.2) K/uL POC Sodium (135-144) mEq/L Sodium (136-145) mmol/L POC Potassium (3.3-5.0) mEq/L Potassium (3.5-5.1) mmol/L POC Chloride (101-112) mEq/L Chloride (98-107) mmol/L Carbon Dioxide (21-32) mmol/L POC Total CO2 (24-31) mEq/l Anion Gap (3-11) POC Anion Gap (16-25) mmol/L POC BUN (7-18) mg/dl BUN (7-18) mg/dl Creatinine (0.6-1.2) mg/dl POC Creatinine (0.6-1.3) mg/dl Est Cr Clr Drug Dosing ml/min Est GFR ( Amer) Est GFR (Non-Af Amer) BUN/Creatinine Ratio (10-20) Glucose (70-99) mg/dl POC Glucose (other) (70-99) mg/dl Calcium (8.5-10.1) mg/dl POC Ioniz Calcium Eugenie (1.12-1.32) mmol/l Total Bilirubin (0.2-1) mg/dl AST (15-37) U/L ALT (12-78) U/L Alkaline Phosphatase (45-117) U/L Troponin I (0-0.045) ng/ml NT-Pro-B Natriuret Pep (0-1800) pg/ml Total Protein (6.4-8.2) gm/dl Albumin (3.4-5.0) gm/dl Globulin (2.5-4.0) gm/dl Albumin/Globulin Ratio (0.9-2) Lipase (73-393) U/L Specimen Hemolysis Influenza Type A (PCR) (Neg) Influenza Type B (PCR) (Neg) Code Status & VTE Plan Code Status FULL CODE Supervising Physician Co-Signing Physician Notes Attending Attestation & Admission Note: Pt seen/examined, chart reviewed, care plan d/w AMBER Neal. I agree w/ the [place] components of her admission documentation. 82yo female with recent right ankle fracture s/p ORIF and pneumonia requiring hospitalization at [facility] in May, CAD, T2DM, chronic diastolic CHF - presents from [facility] with ongoing rash from suspected allergic reaction along with cough/dyspnea. Apparently woke up early AM of 06/13/18 with body-wide rash. Given 40mg of solumedrol and benadryl. Steroids were subsequently stopped because steroids were listed as "allergy" on her allergy list. Her rash persisted but improved modestly. She then developed worsening dyspnea, cough, and hoarse voice in the last 24 hours. PMH, PSH, allergies, meds, sochx, famhx, ros - reviewed VSS, o2 requirement, mildly tachy gen - sickly, NAD, no increased work of breathing neck - no JVD heent - hoarse voice, MM dry, no lesions skin - diffuse areas of erythema on most body surfaces including torso, face, groin, upper legs, etc; no discrete hives however heart - tachy, s1, s2 lungs - diffuse wheezing, no rales abd - soft, NT, ND, BS+ ext - right ankle/leg in cast, left leg w/o edema; pulses 2+ b/l psych - a/o x 2 labs, imaging, EKG reviewed CTA w/ tree-in-bud opacities no PE seen A/P: 1. acute hypoxic respiratory failure - suspect viral bronchitis; with tree-in-bud opacities cannot rule out aspiration pneumonia or atypical pneumonia NO evidence of CHF. 2. diffuse rash - ? allergic reaction to trospium as this drug was the only new medication started prior to the rash occurring. Continue steroids. Caution with diphenhydramine as this may worsen her confusion. 3. recent right ankle fx s/p ORIF - cont DVT proph. 4. patient appears volume contracted; will provide gentle hydration. other plans per Ms. Val Barney MD (1) Bimalleolar fracture of right ankle Encounter type: initial encounter Fracture type: closed Qualified Code(s): S82.841A - Displaced bimalleolar fracture of right lower leg, initial encounter for closed fracture
[2018-06-16] MEDS ORDERED: GLUCAGON FOR INJ 1 MG VIAL SQ PRN (12:05)
[2018-06-16] MEDS ORDERED: ALBUTEROL HFA 8 GM INHALER INH PRN (12:05)
[2018-06-16] MEDS ORDERED: GLUCOSE 40% GEL 15 GM TUBE PO PRN (12:05)
[2018-06-16] MEDS ORDERED: GLUCOSE 10 TABS/TUBE PO PRN (12:05)
[2018-06-16] MEDS ORDERED: CARBOHYDRATES FOR HYPOGLYCEMIA PO PRN (12:05)
[2018-06-16] MEDS ORDERED: DEXTROSE 50% 50 ML SYRINGE IV PRN (12:05)
[2018-06-16] MEDS: ALBUT/IPRATROP 3MG/0.5MG NEB 3 ML VIAL NEB SCH ×4 (12:29→23:08)
[2018-06-16] MEDS ORDERED: PHARMACY GLYCEMIC MGMT CONSULT PRN (12:46)
[2018-06-16] MEDS: DULOXETINE HCL 60 MG CAP PO SCH (12:52)
[2018-06-16] MEDS ORDERED: NovoLIN-N (NPH) PER UNIT CHARGE SQ STA (13:18)
[2018-06-16] MEDS: INSULIN ASPART 100 UNITS/ML 3 ML PEN SC SCH ×3 (13:45→20:37)
--- NOTE | 2018-06-16 14:31 | Emergency Department Note ---
Entered by Palak Spicer acting as a scribe for History of Present Illness General Chief complaint: Allergic Reaction Stated complaint: allergic reaction/unknown Time Seen by Provider: 06/16/18 08:14 Source: patient and EMS Mode of arrival: EMS Limitations: no limitations History of Present Illness Onset (ago): day(s) 2 Location: head Radiation: non-radiation Pain Consistency: + constant Relieved By: + medication Exacerbated By: + other (recent medications) Associated symptoms: + shortness of breath Treatments prior to arrival: other (Epi, Benadryl) The patient is an 82 year old female who presents to the Emergency Room with com plaints of an allergic reaction that began 2 days ago. She was brought to the ED via EMS from [facility], where she resides. EMS reports the patient developed a diffuse rash on her chest, arms and back 2 days ago. She was placed on a topical skin cream and was also placed on Solu-Medrol, but staff at [facility] thought she was possibly allergic to both medications as her breathing and symptoms worsened. The patient was hypoxic on EMS arrival. She was given Epi and Benadryl in the field, which seemed to provide some improvement in her breathing. The patient denies any history of smoking. Her O2 was 99% on 2L NC. Home Medications Home Medications Medication Instructions Recorded Confirmed Type albuterol sulfate HFA 90 2 puffs INH Q6H PRN 11/28/17 06/16/18 History mcg/actuation aerosol inhaler amlodipine 10 mg tablet 10 mg PO QAM 11/28/17 06/16/18 History atorvastatin 20 mg tablet 20 mg PO HS 11/28/17 06/16/18 History docusate sodium 100 mg capsule 100 mg PO HS cap 11/28/17 06/16/18 History docusate sodium 100 mg capsule 200 mg PO QAM cap 11/28/17 06/16/18 History gabapentin 300 mg capsule 300 mg PO BID 11/28/17 06/16/18 History losartan 25 mg tablet 25 mg PO QAM 11/28/17 06/16/18 History metformin 500 mg tablet 500 mg PO QAM tab 11/28/17 06/16/18 History metoprolol tartrate 100 mg tablet 100 mg PO BID 11/28/17 06/16/18 History montelukast 10 mg tablet 10 mg PO QPM 11/28/17 06/16/18 History pantoprazole 40 mg tablet,delayed 40 mg PO QAM 11/28/17 06/16/18 History release vitamin B complex tablet 1 tab PO QAM 11/28/17 06/16/18 History acetaminophen [Tylenol Extra 500 mg PO TIDM 06/16/18 06/16/18 History Strength] acetaminophen [Tylenol] 650 mg PO Q4H PRN 06/16/18 06/16/18 History aspirin 81 mg PO AMHS 06/16/18 06/16/18 History calcium carbonate-vitamin D3 1 tab PO QAM 06/16/18 06/16/18 History [Calcium 600 + D(3)] diphenhydramine HCl [Benadryl 25 mg PO NOW 06/16/18 06/16/18 History Allergy] duloxetine [Cymbalta] 60 mg PO QAM 06/16/18 06/16/18 History ipratropium-albuterol 3 ml INHALATION Q4H PRN 06/16/18 06/16/18 History loratadine 10 mg PO NOW 06/16/18 06/16/18 History loratadine 10 mg PO QAM 06/16/18 06/16/18 History losartan 50 mg PO QAM 06/16/18 06/16/18 History melatonin 5 mg PO HS 06/16/18 06/16/18 History methylprednisolone acetate 40 mg IM NOW 06/16/18 06/16/18 History miconazole nitrate 1 applic TOPICAL BID 06/16/18 06/16/18 History multivitamin 1 tab PO QAM 06/16/18 06/16/18 History oxycodone 5 mg PO Q6H PRN 06/16/18 06/16/18 History polyethylene glycol 3350 [Miralax] 17 g PO QAM 06/16/18 06/16/18 History ranitidine HCl 150 mg PO BID 06/16/18 06/16/18 History ranitidine HCl 150 mg PO NOW 06/16/18 06/16/18 History trospium 20 mg PO QAM 06/16/18 06/16/18 History tuberculin PPD [Tubersol] 5 tb unit INTRADERMAL UD 06/16/18 06/16/18 History Allergies Allergy/AdvReac Type Severity Reaction Status Date / Time azelastine Allergy Intermediate elevated bp Verified 06/16/18 09:36 mivacurium Allergy Mild RASH Verified 06/16/18 09:36 citalopram Allergy Unknown UNKNOWN Verified 06/16/18 09:36 chlorpheniramine AdvReac Intermediate ELEVATED BP Verified 06/16/18 09:36 Corticosteroids AdvReac Intermediate ELEVATED BP Verified 06/16/18 09:36 (Glucocorticoids) fexofenadine AdvReac Intermediate ELEVATED BP Verified 06/16/18 09:36 fluticasone AdvReac Intermediate ELEVATED BP Verified 06/16/18 09:36 hydrocodone AdvReac Intermediate ELEVATED BP Verified 06/16/18 09:36 magnesium salicylate AdvReac Intermediate ELEVATED BP Verified 06/16/18 09:36 salicylates AdvReac Intermediate ELEVATED BP Verified 06/16/18 09:36 Past Med/Surg History Medical History CKD (chronic kidney disease), stage II Chronic diastolic heart failure Chronic lumbar pain Anxiety (Chronic) Arthritis (Chronic) Asthma (Chronic) CAD (coronary artery disease) (Chronic) Cataract (Chronic) Diabetes (Chronic) Diabetic neuropathy (Chronic) Hypertension (Chronic) Kidney disease (Chronic) Lumbago (Chronic) Sciatic nerve pain (Chronic) Surgical History Hx laparoscopic cholecystectomy Hx of tubal ligation Family History Other Cancer Social History Preferred Language: Singaporean Communication Ability: Effective 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 and A total of 10 systems reviewed and were otherwise negative Physical Exam Vital Signs Vital Signs - 24 hr 06/16/18 08:21 06/16/18 08:32 06/16/18 08:43 Temperature 36.8 C Temperature Source Oral Sepsis Recent Fever Within 48 Hours No Sepsis Action Taken by Nursing No Action Required Pulse Rate 101 H Pulse Rate [Right Finger] 106 H Pulse Rhythm Regular Pulse Rhythm [Right Finger] Pulse Strength Normal Pulse Strength [Right Finger] Respiratory Rate 20 18 Respiratory Effort / Characteristics Spontaneous Non-Labored Spontaneous Respiratory Depth Normal Respiratory Pattern Regular Blood Pressure 178/87 H Blood Pressure [Left Arm] Blood Pressure Mean 117 Blood Pressure Mean [Left Arm] Blood Pressure Position Lying Blood Pressure Position [Left Arm] Pulse Oximetry 100 90 94 Oxygen Delivery Method Nebulizer Room Air Nasal Cannula Oxygen Flow Rate 2 06/16/18 09:30 06/16/18 10:45 06/16/18 11:52 Temperature Temperature Source Sepsis Recent Fever Within 48 Hours Sepsis Action Taken by Nursing Pulse Rate Pulse Rate [Right Finger] 92 H 78 Pulse Rhythm Pulse Rhythm [Right Finger] Regular Regular Pulse Strength Pulse Strength [Right Finger] Normal Normal Respiratory Rate 18 18 Respiratory Effort / Characteristics Non-Labored Spontaneous Spontaneous Non-Labored Spontaneous Respiratory Depth Normal Normal Normal Respiratory Pattern Regular Regular Regular Blood Pressure Blood Pressure [Left Arm] 150/72 H 144/77 H Blood Pressure Mean Blood Pressure Mean [Left Arm] 98 99 Blood Pressure Position Blood Pressure Position [Left Arm] Lying Lying Pulse Oximetry 97 96 Oxygen Delivery Method Nasal Cannula Nasal Cannula Nasal Cannula Oxygen Flow Rate 2 2 2 06/16/18 12:31 Temperature Temperature Source Sepsis Recent Fever Within 48 Hours Sepsis Action Taken by Nursing Pulse Rate Pulse Rate [Right Finger] 102 H Pulse Rhythm Pulse Rhythm [Right Finger] Pulse Strength Pulse Strength [Right Finger] Respiratory Rate 18 Respiratory Effort / Characteristics Non-Labored Spontaneous Respiratory Depth Respiratory Pattern Blood Pressure Blood Pressure [Left Arm] Blood Pressure Mean Blood Pressure Mean [Left Arm] Blood Pressure Position Blood Pressure Position [Left Arm] Pulse Oximetry 95 Oxygen Delivery Method Nasal Cannula Oxygen Flow Rate 3 GENERAL: Awake, alert, well-appearing, in no distress HENT: Normocephalic, atraumatic. Oropharynx unremarkable. No mucosal lesions. EYES: Normal conjunctiva. Sclera non-icteric. NECK: Supple. No nuchal rigidity. FROM. No masses. RESPIRATORY: Clear to auscultation. Bilateral wheezing present on exam. No rales. Normal respiratory effort. CARDIAC: Normal rate. Normal rhythm. No murmurs. No rubs. Extremities warm and well perfused. Pulses equal. No JVD. GI: Soft, non-distended. No tenderness to palpation. No rebound or guarding. No masses. RECTAL: Deferred. MUSCULOSKELETAL: Atraumatic. Chest examination reveals no tenderness. The back is symmetrical on inspection without obvious abnormality. There is no CVA tenderness to palpation. No joint edema. LOWER EXTREMITIES: Calves are equal size bilaterally and non-tender. No edema. No discoloration. Cast present to RLE. NVI at right foot and right toes. SKIN: Diffuse urticarial macular rash on chest, arms and back. NEURO: Normal sensorium. No sensory or motor deficits noted. Course 0815: The patient was evaluated in room B7, and a complete history and physical examination were performed. 0955: I discussed the patients [facility] The patient will be further evaluated. Consultations Consultation #1: I discussed the patients case with Dr. Gann, [facility]. The patient will be further evaluated. Time: 09:55 Administered Medications Albuterol (Duoneb) 3 ml NEB Q4R LEYDI Stop: 07/16/18 12:04 Last Admin: 06/16/18 12:29 Dose: 3 ml Documented by: [id number] Diphenhydramine HCl (Benadryl Capsule) 25 mg PO Q6H PRN PRN Reason: itching Stop: 07/16/18 12:29 Last Admin: 06/16/18 12:52 Dose: 25 mg Documented by: [id number] Duloxetine HCl (Cymbalta) 60 mg PO QAM [facility] Stop: 07/16/18 12:04 Last Admin: 06/16/18 12:52 Dose: 60 mg Documented by: [id number] Insulin Aspart (Novolog Flexpen) 0 units SC ACHS [facility] Stop: 07/16/18 12:04 Last Admin: 06/16/18 13:45 Dose: 13 units Documented by: [id number] Cosigned by: [id number] Discontinued Medications Dexamethasone Sodium Phosphate (Decadron Pf) 10 mg IV NOW ONE Stop: 06/16/18 08:21 Last Admin: 06/16/18 09:04 Dose: 10 mg Documented by: [id number] Diphenhydramine HCl (Benadryl) 25 mg IV NOW STA Stop: 06/16/18 08:21 Last Admin: 06/16/18 09:03 Dose: 25 mg Documented by: [id number] Ranitidine HCl 50 mg/ Dextrose 102 mls @ 200 mls/hr IV NOW STA Stop: 06/16/18 08:50 Last Infusion: 06/16/18 10:08 Dose: 0 mls/hr Documented by: [id number] Admin: 06/16/18 09:04 Dose: 200 mls/hr Documented by: [id number] Piperacillin Sod/Tazobactam Sod (Zosyn) 4.5 gm in 120 mls @ 240 mls/hr IV NOW ONE Stop: 06/16/18 10:18 Last Infusion: 06/16/18 11:50 Dose: 0 mls/hr Documented by: [id number] Admin: 06/16/18 10:49 Dose: 240 mls/hr Documented by: [id number] Levofloxacin/Dextrose (Levaquin/D5w) 750 mg in 150 mls @ 100 mls/hr IV NOW STA Stop: 06/16/18 11:18 Last Infusion: 06/16/18 13:47 Dose: 0 mls/hr Documented by: [id number] Admin: 06/16/18 11:50 Dose: 100 mls/hr Documented by: [id number] Insulin Human NPH (Novolin N U-100 Nph Per Unit) 40 units SQ NOW STA Stop: 06/16/18 13:19 Last Admin: 06/16/18 13:43 Dose: 40 units Documented by: [id number] Cosigned by: [id number] Ioversol (Optiray 320 125ml) 89 ml IV ONCE PRN PRN Reason: Interaction Checking Stop: 06/20/18 09:13 Last Admin: 06/16/18 09:15 Dose: 89 ml Documented by: [id number] Levalbuterol HCl (Xopenex 1.25mg/3ml Neb) 1.25 mg NEB NOW STA Stop: 06/16/18 08:21 Last Admin: 06/16/18 08:39 Dose: 1.25 mg Documented by: [id number] Medical Decision Making Differential Diagnosis Differential: Allergic Reaction, Urticaria, Anaphylaxis, Hatfield-Davidson Syndrome, Toxic Epidermal Necrolysis, Erythema Multiforme, Cellulitis, amongst other etiologies entertained. Medical Records Attestation: I reviewed the patient's medical records. Home Medications Current Medication List: was personally reviewed by me Laboratory Data Attestation: I reviewed the patient's lab results. Result diagrams: 06/16/18 07:51 06/16/18 07:51 Lab Results 06/16/18 06/16/18 06/16/18 Range/Units 07:51 07:51 08:42 WBC 13.16 H (4.8-10.8) K/uL RBC 4.36 (4.2-5.4) M/uL Hgb 12.9 (12.0-16.0) g/dL POC Hgb 12.6 (12.0-16.0) g/dl Hct 40.7 (37-47) % POC Hct 37 (37-47) % MCV 93.3 (80-100) fL MCH 29.6 (25-34) pg MCHC 31.7 L (32-36) g/dL RDW Std Deviation 47.4 H (36.4-46.3) fL RDW Coeff of Rakesh 13.8 (11.5-14.5) % Plt Count 171 (130-400) K/uL MPV 12.2 H (7.4-10.4) fL Immature Gran % (Auto) 0.2 % Neut % (Auto) 76.0 % Lymph % (Auto) 19.4 % Upton % (Auto) 3.3 % Eos % (Auto) 1.0 % Baso % (Auto) 0.1 % Immature Gran # (Auto) 0.02 (0.00-0.02) K/uL Neut # (Auto) 10.01 H (1.4-6.5) K/uL Lymph # (Auto) 2.55 (1.2-3.4) K/uL Upton # (Auto) 0.44 (0.11-0.59) K/uL Eos # (Auto) 0.13 (0-0.5) K/uL Baso # (Auto) 0.01 (0-0.2) K/uL POC Sodium 140 (135-144) mEq/L Sodium 139 (136-145) mmol/L POC Potassium 4.0 (3.3-5.0) mEq/L Potassium 4.3 (3.5-5.1) mmol/L POC Chloride 101 (101-112) mEq/L Chloride 105 (98-107) mmol/L Carbon Dioxide 25 (21-32) mmol/L POC Total CO2 27 (24-31) mEq/l Anion Gap 9.0 (3-11) POC Anion Gap 17.0 (16-25) mmol/L POC BUN 24 H (7-18) mg/dl BUN 27 H (7-18) mg/dl Creatinine 0.88 (0.6-1.2) mg/dl POC Creatinine 0.8 (0.6-1.3) mg/dl Est Cr Clr Drug Dosing 50.9 ml/min Est GFR ( Amer) 71.9 Est GFR (Non-Af Amer) 62.1 BUN/Creatinine Ratio 30.3 H (10-20) Glucose 207 H (70-99) mg/dl POC Glucose (70-99) POC Glucose (other) 227 H (70-99) mg/dl Calcium 9.4 (8.5-10.1) mg/dl POC Ioniz Calcium Eugenie 1.17 (1.12-1.32) mmol/l Total Bilirubin 0.7 (0.2-1) mg/dl AST 22 (15-37) U/L ALT 20 (12-78) U/L Alkaline Phosphatase 94 (45-117) U/L Troponin I < 0.015 (0-0.045) ng/ml NT-Pro-B Natriuret Pep 396 (0-1800) pg/ml Total Protein 6.8 (6.4-8.2) gm/dl Albumin 2.7 L (3.4-5.0) gm/dl Globulin 4.1 H (2.5-4.0) gm/dl Albumin/Globulin Ratio 0.7 L (0.9-2) Lipase 118 (73-393) U/L Procalcitonin (0-0.5) ng/ml Specimen Hemolysis Influenza Type A (PCR) (Neg) Influenza Type B (PCR) (Neg) 06/16/18 06/16/18 06/16/18 Range/Units 10:00 12:11 12:13 WBC (4.8-10.8) K/uL RBC (4.2-5.4) M/uL Hgb (12.0-16.0) g/dL POC Hgb (12.0-16.0) g/dl Hct (37-47) % POC Hct (37-47) % MCV (80-100) fL MCH (25-34) pg MCHC (32-36) g/dL RDW Std Deviation (36.4-46.3) fL RDW Coeff of Rakesh (11.5-14.5) % Plt Count (130-400) K/uL MPV (7.4-10.4) fL Immature Gran % (Auto) % Neut % (Auto) % Lymph % (Auto) % Upton % (Auto) % Eos % (Auto) % Baso % (Auto) % Immature Gran # (Auto) (0.00-0.02) K/uL Neut # (Auto) (1.4-6.5) K/uL Lymph # (Auto) (1.2-3.4) K/uL Upton # (Auto) (0.11-0.59) K/uL Eos # (Auto) (0-0.5) K/uL Baso # (Auto) (0-0.2) K/uL POC Sodium (135-144) mEq/L Sodium (136-145) mmol/L POC Potassium (3.3-5.0) mEq/L Potassium (3.5-5.1) mmol/L POC Chloride (101-112) mEq/L Chloride (98-107) mmol/L Carbon Dioxide (21-32) mmol/L POC Total CO2 (24-31) mEq/l Anion Gap (3-11) POC Anion Gap (16-25) mmol/L POC BUN (7-18) mg/dl BUN (7-18) mg/dl Creatinine (0.6-1.2) mg/dl POC Creatinine (0.6-1.3) mg/dl Est Cr Clr Drug Dosing ml/min Est GFR ( Amer) Est GFR (Non-Af Amer) BUN/Creatinine Ratio (10-20) Glucose (70-99) mg/dl POC Glucose 339 H 347 H (70-99) POC Glucose (other) (70-99) mg/dl Calcium (8.5-10.1) mg/dl POC Ioniz Calcium Eugenie (1.12-1.32) mmol/l Total Bilirubin (0.2-1) mg/dl AST (15-37) U/L ALT (12-78) U/L Alkaline Phosphatase (45-117) U/L Troponin I (0-0.045) ng/ml NT-Pro-B Natriuret Pep (0-1800) pg/ml Total Protein (6.4-8.2) gm/dl Albumin (3.4-5.0) gm/dl Globulin (2.5-4.0) gm/dl Albumin/Globulin Ratio (0.9-2) Lipase (73-393) U/L Procalcitonin (0-0.5) ng/ml Specimen Hemolysis Influenza Type A (PCR) Neg for Influ A (Neg) Influenza Type B (PCR) Neg for Influ B (Neg) 06/16/18 Range/Units 12:32 WBC (4.8-10.8) K/uL RBC (4.2-5.4) M/uL Hgb (12.0-16.0) g/dL POC Hgb (12.0-16.0) g/dl Hct (37-47) % POC Hct (37-47) % MCV (80-100) fL MCH (25-34) pg MCHC (32-36) g/dL RDW Std Deviation (36.4-46.3) fL RDW Coeff of Rakesh (11.5-14.5) % Plt Count (130-400) K/uL MPV (7.4-10.4) fL Immature Gran % (Auto) % Neut % (Auto) % Lymph % (Auto) % Upton % (Auto) % Eos % (Auto) % Baso % (Auto) % Immature Gran # (Auto) (0.00-0.02) K/uL Neut # (Auto) (1.4-6.5) K/uL Lymph # (Auto) (1.2-3.4) K/uL Upton # (Auto) (0.11-0.59) K/uL Eos # (Auto) (0-0.5) K/uL Baso # (Auto) (0-0.2) K/uL POC Sodium (135-144) mEq/L Sodium (136-145) mmol/L POC Potassium (3.3-5.0) mEq/L Potassium (3.5-5.1) mmol/L POC Chloride (101-112) mEq/L Chloride (98-107) mmol/L Carbon Dioxide (21-32) mmol/L POC Total CO2 (24-31) mEq/l Anion Gap (3-11) POC Anion Gap (16-25) mmol/L POC BUN (7-18) mg/dl BUN (7-18) mg/dl Creatinine (0.6-1.2) mg/dl POC Creatinine (0.6-1.3) mg/dl Est Cr Clr Drug Dosing ml/min Est GFR ( Amer) Est GFR (Non-Af Amer) BUN/Creatinine Ratio (10-20) Glucose (70-99) mg/dl POC Glucose (70-99) POC Glucose (other) (70-99) mg/dl Calcium (8.5-10.1) mg/dl POC Ioniz Calcium Eugenie (1.12-1.32) mmol/l Total Bilirubin (0.2-1) mg/dl AST (15-37) U/L ALT (12-78) U/L Alkaline Phosphatase (45-117) U/L Troponin I (0-0.045) ng/ml NT-Pro-B Natriuret Pep (0-1800) pg/ml Total Protein (6.4-8.2) gm/dl Albumin (3.4-5.0) gm/dl Globulin (2.5-4.0) gm/dl Albumin/Globulin Ratio (0.9-2) Lipase (73-393) U/L Procalcitonin 0.16 (0-0.5) ng/ml Specimen Hemolysis Influenza Type A (PCR) (Neg) Influenza Type B (PCR) (Neg) Imaging Data Radiologist's Impression: Radiology results as stated below per my review and the radiologist's interpretation: CT ANGIOGRAM OF THE CHEST CLINICAL HISTORY: Atypical chest pain. COMPARISON STUDY: Chest x-ray dated 06/16/2018. TECHNIQUE: Following the IV administration of 89 cc of Optiray 320, CT angiogram of the chest was performed from the upper abdomen to the thoracic inlet utilizing the pulmonary embolus protocol. Images are reviewed in the axial, sagittal, and coronal planes. 3-D MIPS images are created and assessed. IV contr ast was administered without complication. A dose lowering technique was utilized adhering to the principles of ALARA. The examination is significantly degraded by motion artifact as well as by streak artifact from the arms which could not be fully elevated above the chest. CT DOSE: 493.96 mGy.cm FINDINGS: Thyroid: Imaged portions of the thyroid gland are normal in size and attenuation. Thoracic aorta: There is advanced atherosclerotic calcification of the thoracic aorta, which is normal in caliber and demonstrates standard 3-vessel arch anatomy. No dissection is seen. Pulmonary vasculature: The pulmonary trunk is normal in caliber. There are no filling defects identified in main or lobar pulmonary branches to suggest pulmonary embolus. Evaluation of the segmental and subsegmental branches is significantly degraded by motion artifact. Heart: The heart is mildly enlarged and without pericardial effusion. The coronary arteries are densely calcified. Lungs and pleural spaces: Evaluation of the lung parenchyma is degraded by motion artifact. Emphysematous change is suspected. There patchy foci of tree-in-bud consolidation with mild groundglass change are scattered throughout both lungs. No pleural effusion is identified. Secretions/debris are present within the lower lobe airways. Scarring/atelectasis is noted in the lingula. The trachea is clear. Mediastinum: There are mildly enlarged mediastinal lymph nodes. A precarinal node on image #151 measures 13 mm in short axis. A subcarinal node measures 13 mm in short axis. Caroline: Clear. Axillae: There is no axillary lymphadenopathy. Upper abdomen: The liver is cirrhotic in morphology and heterogeneous in attenuation. There is nodularity of the surface contour. There is a small hiatal hernia. Cholecystectomy clips are noted. Mild intrahepatic biliary ductal dilatation is identified. Skeletal structures: The skeletal structures are osteopenic. Degenerative change and hyperkyphosis are noted in the thoracic spine. Arthritic change is observed in the shoulders. No lytic or blastic bony lesions are seen. IMPRESSION: 1. Streak and motion compromised examination. 2. There is no evidence of central pulmonary embolus in the main or lobar pulmonary arteries. Evaluation of the segmental and subsegmental branches is significantly compromised by motion artifact. 3. Cardiomegaly and emphysema. 4. Patchy tree-in-bud and groundglass consolidation is seen throughout both lungs. The appearance suggests an infectious/inflammatory pneumonitis. Clinical correlation will be required and a precautionary follow-up chest CT is recommended in 3 months time to document resolution. 5. Cirrhotic liver morphology. 6. Mildly enlarged mediastinal lymph nodes are likely on a reactive basis. These can also be reassessed at follow-up. 7. Additional findings as above. Electronically signed by: Ravi Schwarz M.D. 06/16/2018 9:28 AM SINGLE VIEW CHEST CLINICAL HISTORY: Atypical chest pain. FINDINGS: An AP, portable, upright chest radiograph is compared to study dated 05/26/2018. The examination is degraded by portable technique and patient rotation. The cardiomediastinal silhouette is unremarkable, noting atherosclerotic calcification of the thoracic aorta. Chronic interstitial thickening is similar to previous. No airspace consolidation or large pleural effusion is identified. No pneumothorax is seen. The skeletal structures are osteopenic. The bony thorax is grossly intact. Degenerative change is noted throughout the thoracic spine. IMPRESSION: No acute cardiopulmonary abnormality. Electronically signed by: Ravi Schwarz M.D. 06/16/2018 9:14 AM ECG Data Attestation: I personally reviewed and interpreted this ECG as follows: Indication: tachycardia Rate (beats per minute): 102 Rhythm: sinus tachycardia Findings: no ST depression and no ST elevation Blood Pressure Blood Pressure Findings: Elevated blood pressure Blood Pressure Disposition: Referred to patients primary care provider HEYDI Cross This is an 82-year-old female who presents emergency department complaining of allergic reaction that started at her respiratory home . The patient has only been given 1 dose of Solu-Medrol as she developed an allergic reaction to this. In the emergency department patient was given Benadryl Zantac and Decadron. She appears to have pneumonia on her chest x-ray. She is hypoxic therefore she was sent for a CAT scan of the chest. She was pancultured and started on antibiotics. I did discuss the case with the hospitalist service who agreed to admit patient. Patient was in agreement with the treatment plan. Impression & Plan Allergic reaction, Pneumonia Discharge Plan Visit Data *Final* Discharge Date/Time: 06/16/18 11:51 Chief Complaint: Allergic Reaction Stated Complaint: allergic reaction/unknown ED Provider: Sharif Bran Discharge Problem: Allergic reaction, Pneumonia Patient Disposition: Admitted As Inpatient Discharge Instructions Interventions: ED Discharge Assessment Last Done: 06/16/18 11:51 The scribe's documentation has been prepared under my direction and personally reviewed by me in its entirety. I confirm that the note above accurately reflects all work, treatment, procedures, and medical decision making performed by me.
[2018-06-16] MEDS: ENOXAPARIN INJ 40 MG/0.4 ML SYR SQ SCH (15:24)
[2018-06-16] MEDS: predniSONE 20 MG TAB PO SCH (15:26)
[2018-06-16] MEDS: PIPERACILLIN/TAZOBACTAM 3.375 GM in DEXTROSE 5% 100 ML IV SCH (15:30)
[2018-06-16 19:12] LABS: Appearance Urine Clear (Clear); Bacteria Urine Automated Negative (Negative); Bilirubin Urine Negative (Negative); Blood Urine Negative (Negative); Color Urine Yellow; Epithelial Cell Urine Auto >30 /lpf (0-5); Glucose Urine UA 3+ (Negative); Ketones Urine Negative (Negative); Leukocyte Esterase Urine Negative (Negative); Nitrite Urine Negative (Negative); Protein Urine Trace (Negative); Specific Gravity Urine > 1.045 (1.000-1.030); Urobilinogen Urine Negative (Negative)
[2018-06-16 19:39] LABS: RBC Urine Automated 0-4 /hpf (0-4)
[2018-06-16] MEDS ORDERED: INSULIN HUMAN NPH SC ONE (20:30)
[2018-06-16] MEDS: DOCUSATE SODIUM 100 MG CAP PO SCH (20:35)
[2018-06-16] MEDS: METOPROLOL TARTRATE 100 MG TAB PO SCH (20:36)
[2018-06-16] MEDS: MONTELUKAST SODIUM 10 MG TABLET PO SCH (20:36)
[2018-06-16] MEDS: ATORVASTATIN 20 MG TAB PO SCH (20:36)
[2018-06-16] MEDS: GABAPENTIN 300 MG CAP PO SCH (20:36)
[2018-06-16] MEDS: ASPIRIN 81 MG ECTAB PO SCH (20:36)
[2018-06-16] MEDS: MICONAZOLE NITRATE POWDER 43 GM TOP SCH (20:36)
[2018-06-16 21:09] LABS: BUN Creatinine Ratio 16.1 (10-20); Blood Urea Nitrogen 22 mg/dl (7-18); Calcium 9.3 mg/dl (8.5-10.1); Carbon Dioxide 21 mmol/L (21-32); Chloride 106 mmol/L (98-107); Creatinine Clr Calc Pharmacy 32.9 ml/min; Est GFR (African American) 42.5; Est GFR (Non-African American) 36.7; Glucose 323 mg/dl (70-99); Magnesium 1.3 mg/dl (1.8-2.4); Potassium 3.8 mmol/L (3.5-5.1); Sodium 140 mmol/L (136-145)
[2018-06-16 21:12] LABS: Phosphorus 1.9 mg/dl (2.5-4.9)
--- NOTE | 2018-06-16 21:14 | XRay Report ---
SINGLE VIEW CHEST CLINICAL HISTORY: Atypical chest pain. FINDINGS: An AP, portable, upright chest radiograph is compared to chest x-ray and chest CT performed earlier the same day 06/16/2018. The examination is degraded by portable technique and patient rotati on. The heart is mildly enlarged and there is atherosclerotic calcification of the thoracic aorta. E mphysema and chronic interstitial thickening are similar to previous. No airspace consolidation or la rge pleural effusion is identified. No pneumothorax is seen. The skeletal structures are osteopenic. The bony thorax is grossly intact. Degenerative change is noted throughout the thoracic spine. IMPRESSION: 1. No acute cardiopulmonary abnormality is identified and there has been no significant change from ana laura rothman's earlier chest x-ray. 2. Multifocal tree-in-bud consolidation seen by CT is not apparent by x-ray. Electronically signed by: Ravi Schwarz M.D. 06/16/2018 9:13 PM
[2018-06-16 21:20] LABS: Troponin I < 0.015 ng/ml (0-0.045)
[2018-06-16] MEDS: SODIUM CHLORIDE 0.9% 1000ML 1,000 ML IV SCH (21:45)
[2018-06-16] MEDS ORDERED: MAGNESIUM SULFATE / D5W 1 GM/100 ML BAG IV ONE (22:00)
[2018-06-17] MEDS: INSULIN ASPART 100 UNITS/ML 3 ML PEN SC SCH ×6 (00:15→22:02)
[2018-06-17] MEDS: PIPERACILLIN/TAZOBACTAM 3.375 GM in DEXTROSE 5% 100 ML IV SCH ×3 (00:15→16:22)
[2018-06-17] MEDS: ALBUT/IPRATROP 3MG/0.5MG NEB 3 ML VIAL NEB SCH ×2 (03:02→07:45)
--- NOTE | 2018-06-17 03:06 | Progress Note ---
Date of Service June 17, 2018 Assessment & Plan (1) Chest pain: S: Nurse called regarding patient's chest pain. Describes brief chest tightness following breathing treatment. Became hypertensive, tachycardic. O: CXR: no cardiopulmonary abnormality EKG: initial tachycardia ST depressions in anterior leads, repeat showed NSR Trop: initial negative, repeat 0.047 A: 1. Underlying CAD, angina in the setting of tachycardia Patient is here for an allergic reaction--received steroids, benadryl, breathing treatments. Brief chest pain following albuterol tx, patient was subsequently tachycardic and hypertensive--initial EKG showed ST depressions in anterior l ashvin. No signs of acute infarction on EKG. Patient received beta nel which improved rates and BP--- repeat EKG showed NSR. No repeat episodes of chest pain since. It's possible breathing treatments and steroids gave rise to tachycardia which likely induced stress test effect as well as brief angina. P: - Continue to tend trop - Call for repeat chest pain, obtain EKG, nitro - Considering PMH of CAD, stents would consider cardiology consult Supervising Physician Co-Signing Physician Notes Agree with Dr. Melgoza's assessment and plan as above Physical Exam Vital Signs (Past 24 Hours): Last Vital Signs Temp 36.7 C 06/16/18 23:00 Pulse 106 H 06/16/18 23:00 Resp 20 06/16/18 23:00 BP 159/65 H 06/16/18 23:00 Pulse Ox 92 06/16/18 23:00
[2018-06-17] MEDS ORDERED: NITROGLYCERIN SL 0.4 MG/TAB TAB SL PRN (03:25)
[2018-06-17 06:30] LABS: Basophils % (auto) 0.1 %; Hematocrit (blood only) 33.7 % (37-47); Hemoglobin 10.6 g/dL (12.0-16.0); Immature Granulocytes % (auto) 0.3 %; Lymphocytes # (auto) 1.02 K/uL (1.2-3.4); Lymphocytes % (auto) 10.8 %; Mean Corpuscular Hgb Conc 31.5 g/dL (32-36); Mean Corpuscular Volume 92.6 fL (80-100); Mean Platelet Volume 11.8 fL (7.4-10.4); Monocytes % (auto) 4.8 %; Platelet Count 119 K/uL (130-400); RDW Coefficient of Variation 13.6 % (11.5-14.5); RDW Standard Deviation 46.5 fL (36.4-46.3); Red Blood Count 3.64 M/uL (4.2-5.4); White Blood Count 9.41 K/uL (4.8-10.8)
[2018-06-17 06:31] LABS: Basophils # (auto) 0.01 K/uL (0-0.2); Immature Granulocytes # (auto) 0.03 K/uL (0.00-0.02); Monocytes # (auto) 0.45 K/uL (0.11-0.59)
[2018-06-17 06:56] LABS: BUN Creatinine Ratio 24.6 (10-20); Calcium 8.8 mg/dl (8.5-10.1); Est GFR (African American) 77.2; Est GFR (Non-African American) 66.6; Magnesium 1.6 mg/dl (1.8-2.4); Potassium 3.8 mmol/L (3.5-5.1); Troponin I 0.042 ng/ml (0-0.045)
[2018-06-17] MEDS: ASPIRIN 81 MG ECTAB PO SCH ×2 (08:19→21:57)
[2018-06-17] MEDS: AZITHROMYCIN 250 MG TAB PO SCH (08:19)
[2018-06-17] MEDS: AMLODIPINE BESYLATE 5 MG TAB PO SCH (08:19)
[2018-06-17] MEDS: DOCUSATE SODIUM 100 MG CAP PO SCH ×2 (08:20→21:58)
[2018-06-17] MEDS: MIRABEGRON ER 25 MG TAB PO SCH (08:20)
[2018-06-17] MEDS: predniSONE 20 MG TAB PO SCH (08:20)
[2018-06-17] MEDS: DULOXETINE HCL 60 MG CAP PO SCH (08:20)
[2018-06-17] MEDS: LOSARTAN POTASSIUM 50 MG TAB PO SCH (08:22)
[2018-06-17] MEDS: GABAPENTIN 300 MG CAP PO SCH ×2 (08:22→22:00)
[2018-06-17] MEDS: LORATADINE 10 MG TAB PO SCH (08:22)
[2018-06-17] MEDS: PANTOprazole 40 MG TAB PO SCH (08:23)
[2018-06-17] MEDS: METOPROLOL TARTRATE 100 MG TAB PO SCH ×2 (08:23→21:59)
[2018-06-17] MEDS: INSULIN HUMAN NPH SC SCH (08:25)
[2018-06-17] MEDS: MICONAZOLE NITRATE POWDER 43 GM TOP SCH ×2 (08:30→21:58)
[2018-06-17] MEDS: MAGNESIUM OXIDE 400 MG TAB PO SCH ×2 (09:43→21:59)
[2018-06-17] MEDS: SODIUM CHLORIDE 0.9% 1000ML 1,000 ML IV SCH (09:53)
[2018-06-17] MEDS: LEVALBUTEROL HCL 0.63 MG/3 ML NEB NEB SCH ×3 (10:02→20:03)
--- NOTE | 2018-06-17 11:22 | Pharmacy Report ---
Glycemic Control Consultation - Date of Service June 17, 2018 - Scope Scope: Glycemic Pharmacist consulted by Abel Santiago on 06/16/18 for glycemic control and to write orders per [facility] inpatient glycemic control protocol - Objective Weight: 76 kg Accuchecks BSG (last 24hrs): 06/16/18 06/16/18 06/16/18 12:11 12:13 17:51 Glucose POC Glucose 339 H 347 H 343 H 06/16/18 06/16/18 06/17/18 20:03 20:40 00:13 Glucose 323 H POC Glucose 325 H 142 H 06/17/18 06/17/18 06/17/18 03:58 06:09 07:53 Glucose 114 H POC Glucose 112 H 119 H Laboratory Data (last 24hrs): 06/16/18 06/16/18 06/17/18 20:40 21:39 06:09 Potassium 3.8 3.8 Carbon Dioxide 21 30 Anion Gap 13.0 H 3.0 Creatinine 1.36 H D 0.83 D Est Cr Clr Drug Dosing 32.9 54.0 Beta-Hydroxybutyric Acd 1.50 HbA1c: 6.6% on 05/20/18 - Recent Pertinent Medications Outpatient Anti-diabetic Regimen: * Metformin 500mg QAM Risk Factors for Insulin Resistance: * Steroids * Infection * Diet - Assessment & Plan Assessment & Plan: ASSESSMENT: * 82yo T2DM female with adequate outpatient control per recent A1c. * Pt is maintained on metformin monotherapy as an outpatient. This is being held for admission and utilizing SQ basal bolus insulin regimen for steroid induced hyperglycemia. * Pt received dexamethasone 10mg IV x 1 in ED + prednisone 40mg PO last evening. Pt with significant hyperglycemia yesterday after these doses of steroids. * Pt is currently receiving ~ 100 units of insulin per day with near adequate control. * Expect daily insulin requirement to decrease with each step down in steroid dosing. Pt is only to receive prednsione 40mg daily starting today (no more dexamethasone). Will decrease regimen today to prevent hypoglycemia. * Pt insulin Rx = basal insulin {n/a based on A1c}, bolus insulin {NovoLog}, and steroid hyperglycemia insulin {NPH} * NPH insulin is used to counteract the hyperglycemic effect of prednisone. The rationale for this approach is that the pharmacodynamics profile of NPH, with a peak effect of 4-8hrs and duration of action of 12-16hrs, mirrors the pharmacodynamics of prednisone. NPH should be dosed at the same time that prednisone is given * The dose of NPH given is dependent on the steroid dose given * For doses of prednisone 40mg/day or above NPH dose should be 0.4 units/kg. * Pt Rx NPH 40 units SQ x 1 dose for dxm and then an additional NPH 20 units SQ x 1 dose for prednisone 40mg * NPH dosing above is given in addition to patients basal insulin needs * Typically, patients will also need rapid-acting insulin with meals * Will continue to titrate insulin dosing with each step down in steroid dosing PLAN FOR INPATIENT GLYCEMIC CONTROL: NPH + NovoLog for prednisone induced hyperglycemia. Estimated TDD ~ 60-80 units/day. * NPH 30 units (0.4 units/kg) Sq daily to be given at the same time as prednisone 40mg daily * Bolus insulin * NovoLog per scale ACHS or Q6hrs while NPO * Goal Range: Low 110 mg/dL - High 140 mg/dL * Correction Factor: 20 mg/dL/unit * Nutritional / Prandial insulin per carb ratio of 1 unit per 7 grams CHO consumed * Please note that the plan above was derived based on current level of insulin resistance and hospital stress. These recommendations are appropriate for inpatient admission only. Plan of care upon discharge will need to be reassessed to avoid potential outpatient hypo/hyperglycemia. Thank you.
--- NOTE | 2018-06-17 12:20 | Hospitalist Progress Note ---
Date of Service June 17, 2018 Assessment & Plan (1) Allergic reaction: - Presented with allergic reaction - possibly related to Trospium, was started on 06/05/[address] [facility]. - Rash now improved overall, no new lesions noted on exam. - Continue Loratadine 10 mg daily, Ranitidine 150 mg BID as prescribed. - Prednisone 40 mg PO daily (day 2 of 5) - Has been evaluated by stone grader in past; has documented allergies with side effect of hypertension. (2) Chest pain: - Developed chest pain, tachycardia following neb treatment last evening; symptoms now resolved. - EKG showed new ST depression in the anterior leads; repeat EKG following BB dose was negative. - Trop peaked at 0.047, now trending down. - Will obtain TTE to evaluate for wall motion abnormalities. 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 - Continue cardiac meds as prescribed. - Consult cardiology for recs. (3) Elevated troponin: - Peaked at 0.047, now trending down. (4) Pneumonia: - Was treated with Augmentin PO for PNA during last admission, completed course on 06/02/18. - CT chest in ER showed no PE, patchy tree-in-bud opacities and groundglass opacities in both lungs -- may be related to viral vs. bacterial process. - Continue Zosyn & Azithromycin for empiric coverage. - Convert Duonebs to Xopenex scheduled (due to tachycardia) - Procalcitonin level negative; BC and UC pending. (5) Acute respiratory failure with hypoxia: - Now weaned to room air. - Likely related to PNA. (6) Acute kidney injury: - Creat increased to 1.36 overnight -- possibly related to dehydration. - Continue NS at 80 cc/hr with close monitoring of volume status. (7) CKD (chronic kidney disease) stage 2, GFR 60-89 ml/min: - Renally dose all meds. (8) Bimalleolar fracture of right ankle: - S/p ORIF on 05/23/18. - Continue Tylenol and Oxycodone prn pain. - Aspirin 81 mg BID for DVT ppx. - PT/OT ordered - right non-weight bearing. (9) Chronic lumbar pain: - Related to sciatica. - Continue Cymbalta 60 mg daily and Gabapentin 300 mg BID. - Evaluated by pain management as outpatient. (10) Coronary artery disease: - S/p placement of drug eluting stent in the LAD in 2009 following anterior septal wall ME in May 2009. - Continue statin, aspirin and beta nel as prescribed. Will add Imdur 30 mg daily. - Cardiac work up for acute chest pain as noted above. (11) Benign essential hypertension: - BP has been uncontrolled -- is very hypertensive at baseline (refer to last admission). - Has documented allergy to steroids with HTN noted -- plan to continue steroids at this point due to allergic reaction. - Continue Amlodipine 10 mg daily, Losartan 50 mg daily (recently increased at [facility]) and Metoprolol 100 mg BID. - Will start Imdur 30 mg PO daily. - Hydralazine 10 mg IV q6hr prn HTN. (12) Hyperlipidemia: - Continue statin as prescribed. (13) Chronic diastolic heart failure: - Echo in Nov 2017 showed EF 50-55%, mild LVH. Repeat TTE is ordered. - Monitor net I/O's and daily weights. - Continue BB as prescribed. 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 - Continue aspirin/statin. (15) Carotid stenosis: - Continue aspirin, statin as prescribed. - Will need f/u doppler in Feb 2019 per cardiology notes. (16) Type 2 diabetes mellitus: - Hold home Metformin. - Hemoglobin A1C was 6.6. - BG elevated in setting of steroids; consulted pharmacy for glycemic management. (17) Osteopenia: - DEXA scan in July 2016. (18) Urinary incontinence: - Continue Myrbetriq as prescribed. - Recently started on Trospium at [facility], now discontinued. (19) GERD (gastroesophageal reflux disease): - Continue PPI daily and Ranitidine 150 mg BID. (20) Anxiety: - Continue Duloxetine as prescribed. (21) Allergic rhinitis: - Continue Singulair as prescribed. (22) Electrolyte abnormality: - Mag level 1.6 -- ordered mag oxide 400 mg BID x 1 day to avoid additional IV fluids. - Monitor levels qAM. (23) DVT prophylaxis: - SCDs; Aspirin 81 mg BID and Lovenox 40 mg subQ q24hr. Dispo: PCU for work up/treatment of acute issues, including chest pain, allergic reaction. Will likely need to be discharged back to [facility] at discharge. Supervising Physician Co-Signing Physician Notes Attending Attestation - Chart reviewed in detail, care plan d/w AMBER Neal. I agree w/ the [place] components of her documentation. Cont steroids for presumed allergic reaction to trospium. Had episode of chest pain last pm. During that spell BPs were markedly elevated. Serial troponins. Echo to look at wall motion. Add imdur for improved BP control. Consult cardiology. Continue abx for pneumonia. Mushtaq Barney MD Subjective Pt. developed chest pain/discomfort following neb treatment last evening. She was hypertensive/tachycardic during acute episode. EKG showed ST depression in the anterior leads, repeat EKG showed NSR. Trop peaked at 0.047, now trending down. Pt. states chest pain started yesterday morning, was mild and intermittent. Pain increased in intensity last evening following neb treatment. Denied radiation of pain to arm or jaw, increased shortness of breath, nausea/vomiting. Chest pain is now completed resolved. Had BM last night, denies urinary retention. Pt. complains of new lesion on right upper shoulder but denies itching -- does not have any new lesions on physical exam. Review of Systems All systems reviewed & are unremarkable except as noted in HPI & below Constitutional: + fatigue and + weakness; no fever, no chills and no anorexia Respiratory: no cough, no dyspnea, no dyspnea on exertion and no wheezing Cardiovascular: + chest pain and + chest pain at rest; no radiating jaw, neck or arm pain, no dyspnea, no dyspnea at rest, no dyspnea on exertion, no palpitations, no lightheadedness, no syncope and no edema Gastrointestinal: no abdominal pain, no nausea, no vomiting, no constipation and no diarrhea/loose stools Genitourinary (Female): no dysuria and no difficulty urinating Musculoskeletal: no joint pain Integumentary: + lesions (Resolving); no non-healing lesions Allergy / Immunological: + rash (see HPI. ) Physical Exam Vital Signs (Past 24 Hours): Last Vital Signs Temp 36.8 C 06/17/18 10:57 Pulse 78 06/17/18 10:57 Resp 20 06/17/18 10:57 BP 161/63 H 06/17/18 10:57 Pulse Ox 92 06/17/18 10:57 Physical Exam: General: Resting comfortably in no apparent distress HEENT: NC/AT; PERRLA with EOMI; [place] conjunctiva, MMM. Neck: Supple and nontender Cardiac: RRR w/o murmurs, gallops or rubs Lungs: room air; diminished in bilat lung lara. Abdomen: Bowel normoactive X 4; Nontender to palpation Extremities: Warm. No edema present. Right ankle with cast in place, intact to light sensation of right toes. Neuro: No focal weakness Skin: Macular erythematous lesions on upper trunk and bilat upper extremities resolving, no new lesions noted. Results & Data Laboratory Results 06/17/18 06/17/18 06/17/18 Range/Units 11:29 07:53 06:09 WBC (4.8-10.8) K/uL RBC (4.2-5.4) M/uL Hgb (12.0-16.0) g/dL Hct (37-47) % MCV (80-100) fL MCH (25-34) pg MCHC (32-36) g/dL RDW Std Deviation (36.4-46.3) fL RDW Coeff of Rakesh (11.5-14.5) % Plt Count (130-400) K/uL MPV (7.4-10.4) fL Immature Gran % (Auto) % Neut % (Auto) % Lymph % (Auto) % [place] % (Auto) % Eos % (Auto) % Baso % (Auto) % Immature Gran # (Auto) (0.00-0.02) K/uL Neut # (Auto) (1.4-6.5) K/uL Lymph # (Auto) (1.2-3.4) K/uL [place] # (Auto) (0.11-0.59) K/uL Eos # (Auto) (0-0.5) K/uL Baso # (Auto) (0-0.2) K/uL Sodium 142 (136-145) mmol/L Potassium 3.8 (3.5-5.1) mmol/L Chloride 109 H (98-107) mmol/L Carbon Dioxide 30 (21-32) mmol/L Anion Gap 3.0 (3-11) BUN 20 H (7-18) mg/dl Creatinine 0.83 D (0.6-1.2) mg/dl Est Cr Clr Drug Dosing 54.0 ml/min Est GFR ( Amer) 77.2 Est GFR (Non-Af Amer) 66.6 BUN/Creatinine Ratio 24.6 H (10-20) Glucose 114 H (70-99) mg/dl POC Glucose 114 H 119 H (70-99) Calcium 8.8 (8.5-10.1) mg/dl Phosphorus (2.5-4.9) mg/dl Magnesium 1.6 L (1.8-2.4) mg/dl Troponin I 0.042 (0-0.045) ng/ml Beta-Hydroxybutyric Acd (0.2-2.81) mg/dl Procalcitonin (0-0.5) ng/ml Urine Color Urine Appearance (Clear) Urine pH (4.5-7.5) Ur Specific Bailey (1.000-1.030) Urine Protein (Negative) Urine Glucose (UA) (Negative) Urine Ketones (Negative) Urine Blood (Negative) Urine Nitrite (Negative) Urine Bilirubin (Negative) Urine Urobilinogen (Negative) Ur Leukocyte Esterase (Negative) Urine WBC (Auto) (0-5) /hpf Urine RBC (Auto) (0-4) /hpf U Hyaline Cast (Auto) (0-5) /lpf U Epithel Cells (Auto) (0-5) /lpf Urine Bacteria (Auto) (Negative) Urine Yeast (None Prsent) 06/17/18 06/17/18 06/17/18 Range/Units 06:09 03:58 00:42 WBC 9.41 (4.8-10.8) K/uL RBC 3.64 L (4.2-5.4) M/uL Hgb 10.6 L (12.0-16.0) g/dL Hct 33.7 L (37-47) % MCV 92.6 (80-100) fL MCH 29.1 (25-34) pg MCHC 31.5 L (32-36) g/dL RDW Std Deviation 46.5 H (36.4-46.3) fL RDW Coeff of Rakesh 13.6 (11.5-14.5) % Plt Count 119 L (130-400) K/uL MPV 11.8 H (7.4-10.4) fL Immature Gran % (Auto) 0.3 % Neut % (Auto) 84.0 % Lymph % (Auto) 10.8 % [place] % (Auto) 4.8 % Eos % (Auto) 0.0 % Baso % (Auto) 0.1 % Immature Gran # (Auto) 0.03 H (0.00-0.02) K/uL Neut # (Auto) 7.90 H (1.4-6.5) K/uL Lymph # (Auto) 1.02 L (1.2-3.4) K/uL [place] # (Auto) 0.45 (0.11-0.59) K/uL Eos # (Auto) 0.00 (0-0.5) K/uL Baso # (Auto) 0.01 (0-0.2) K/uL Sodium (136-145) mmol/L Potassium (3.5-5.1) mmol/L Chloride (98-107) mmol/L Carbon Dioxide (21-32) mmol/L Anion Gap (3-11) BUN (7-18) mg/dl Creatinine (0.6-1.2) mg/dl Est Cr Clr Drug Dosing ml/min Est GFR ( Amer) Est GFR (Non-Af Amer) BUN/Creatinine Ratio (10-20) Glucose (70-99) mg/dl POC Glucose 112 H (70-99) Calcium (8.5-10.1) mg/dl Phosphorus (2.5-4.9) mg/dl Magnesium (1.8-2.4) mg/dl Troponin I 0.047 H* (0-0.045) ng/ml Beta-Hydroxybutyric Acd (0.2-2.81) mg/dl Procalcitonin (0-0.5) ng/ml Urine Color Urine Appearance (Clear) Urine pH (4.5-7.5) Ur Specific Bailey (1.000-1.030) Urine Protein (Negative) Urine Glucose (UA) (Negative) Urine Ketones (Negative) Urine Blood (Negative) Urine Nitrite (Negative) Urine Bilirubin (Negative) Urine Urobilinogen (Negative) Ur Leukocyte Esterase (Negative) Urine WBC (Auto) (0-5) /hpf Urine RBC (Auto) (0-4) /hpf U Hyaline Cast (Auto) (0-5) /lpf U Epithel Cells (Auto) (0-5) /lpf Urine Bacteria (Auto) (Negative) Urine Yeast (None Prsent) 06/17/18 06/16/18 06/16/18 Range/Units 00:13 21:39 20:40 WBC (4.8-10.8) K/uL RBC (4.2-5.4) M/uL Hgb (12.0-16.0) g/dL Hct (37-47) % MCV (80-100) fL MCH (25-34) pg MCHC (32-36) g/dL RDW Std Deviation (36.4-46.3) fL RDW Coeff of Rakesh (11.5-14.5) % Plt Count (130-400) K/uL MPV (7.4-10.4) fL Immature Gran % (Auto) % Neut % (Auto) % Lymph % (Auto) % [place] % (Auto) % Eos % (Auto) % Baso % (Auto) % Immature Gran # (Auto) (0.00-0.02) K/uL Neut # (Auto) (1.4-6.5) K/uL Lymph # (Auto) (1.2-3.4) K/uL [place] # (Auto) (0.11-0.59) K/uL Eos # (Auto) (0-0.5) K/uL Baso # (Auto) (0-0.2) K/uL Sodium 140 (136-145) mmol/L Potassium 3.8 (3.5-5.1) mmol/L Chloride 106 (98-107) mmol/L Carbon Dioxide 21 (21-32) mmol/L Anion Gap 13.0 H (3-11) BUN 22 H (7-18) mg/dl Creatinine 1.36 H D (0.6-1.2) mg/dl Est Cr Clr Drug Dosing 32.9 ml/min Est GFR ( Amer) 42.5 Est GFR (Non-Af Amer) 36.7 BUN/Creatinine Ratio 16.1 (10-20) Glucose 323 H (70-99) mg/dl POC Glucose 142 H (70-99) Calcium 9.3 (8.5-10.1) mg/dl Phosphorus 1.9 L (2.5-4.9) mg/dl Magnesium 1.3 L (1.8-2.4) mg/dl Troponin I < 0.015 (0-0.045) ng/ml Beta-Hydroxybutyric Acd 1.50 (0.2-2.81) mg/dl Procalcitonin (0-0.5) ng/ml Urine Color Urine Appearance (Clear) Urine pH (4.5-7.5) Ur Specific Bailey (1.000-1.030) Urine Protein (Negative) Urine Glucose (UA) (Negative) Urine Ketones (Negative) Urine Blood (Negative) Urine Nitrite (Negative) Urine Bilirubin (Negative) Urine Urobilinogen (Negative) Ur Leukocyte Esterase (Negative) Urine WBC (Auto) (0-5) /hpf Urine RBC (Auto) (0-4) /hpf U Hyaline Cast (Auto) (0-5) /lpf U Epithel Cells (Auto) (0-5) /lpf Urine Bacteria (Auto) (Negative) Urine Yeast (None Prsent) 06/16/18 06/16/18 06/16/18 Range/Units 20:03 18:40 17:51 WBC (4.8-10.8) K/uL RBC (4.2-5.4) M/uL Hgb (12.0-16.0) g/dL Hct (37-47) % MCV (80-100) fL MCH (25-34) pg MCHC (32-36) g/dL RDW Std Deviation (36.4-46.3) fL RDW Coeff of Rakesh (11.5-14.5) % Plt Count (130-400) K/uL MPV (7.4-10.4) fL Immature Gran % (Auto) % Neut % (Auto) % Lymph % (Auto) % [place] % (Auto) % Eos % (Auto) % Baso % (Auto) % Immature Gran # (Auto) (0.00-0.02) K/uL Neut # (Auto) (1.4-6.5) K/uL Lymph # (Auto) (1.2-3.4) K/uL [place] # (Auto) (0.11-0.59) K/uL Eos # (Auto) (0-0.5) K/uL Baso # (Auto) (0-0.2) K/uL Sodium (136-145) mmol/L Potassium (3.5-5.1) mmol/L Chloride (98-107) mmol/L Carbon Dioxide (21-32) mmol/L Anion Gap (3-11) BUN (7-18) mg/dl Creatinine (0.6-1.2) mg/dl Est Cr Clr Drug Dosing ml/min Est GFR ( Amer) Est GFR (Non-Af Amer) BUN/Creatinine Ratio (10-20) Glucose (70-99) mg/dl POC Glucose 325 H 343 H (70-99) Calcium (8.5-10.1) mg/dl Phosphorus (2.5-4.9) mg/dl Magnesium (1.8-2.4) mg/dl Troponin I (0-0.045) ng/ml Beta-Hydroxybutyric Acd (0.2-2.81) mg/dl Procalcitonin (0-0.5) ng/ml Urine Color Yellow Urine Appearance Clear (Clear) Urine pH 5.0 (4.5-7.5) Ur Specific Bailey > 1.045 H (1.000-1.030) Urine Protein Trace H (Negative) Urine Glucose (UA) 3+ H (Negative) Urine Ketones Negative (Negative) Urine Blood Negative (Negative) Urine Nitrite Negative (Negative) Urine Bilirubin Negative (Negative) Urine Urobilinogen Negative (Negative) Ur Leukocyte Esterase Negative (Negative) Urine WBC (Auto) 1-5 (0-5) /hpf Urine RBC (Auto) 0-4 (0-4) /hpf U Hyaline Cast (Auto) 1-5 (0-5) /lpf U Epithel Cells (Auto) >30 H (0-5) /lpf Urine Bacteria (Auto) Negative (Negative) Urine Yeast Budding H (None Prsent) 06/16/18 06/16/18 06/16/18 Range/Units 12:32 12:13 12:11 WBC (4.8-10.8) K/uL RBC (4.2-5.4) M/uL Hgb (12.0-16.0) g/dL Hct (37-47) % MCV (80-100) fL MCH (25-34) pg MCHC (32-36) g/dL RDW Std Deviation (36.4-46.3) fL RDW Coeff of Rakesh (11.5-14.5) % Plt Count (130-400) K/uL MPV (7.4-10.4) fL Immature Gran % (Auto) % Neut % (Auto) % Lymph % (Auto) % [place] % (Auto) % Eos % (Auto) % Baso % (Auto) % Immature Gran # (Auto) (0.00-0.02) K/uL Neut # (Auto) (1.4-6.5) K/uL Lymph # (Auto) (1.2-3.4) K/uL [place] # (Auto) (0.11-0.59) K/uL Eos # (Auto) (0-0.5) K/uL Baso # (Auto) (0-0.2) K/uL Sodium (136-145) mmol/L Potassium (3.5-5.1) mmol/L Chloride (98-107) mmol/L Carbon Dioxide (21-32) mmol/L Anion Gap (3-11) BUN (7-18) mg/dl Creatinine (0.6-1.2) mg/dl Est Cr Clr Drug Dosing ml/min Est GFR ( Amer) Est GFR (Non-Af Amer) BUN/Creatinine Ratio (10-20) Glucose (70-99) mg/dl POC Glucose 347 H 339 H (70-99) Calcium (8.5-10.1) mg/dl Phosphorus (2.5-4.9) mg/dl Magnesium (1.8-2.4) mg/dl Troponin I (0-0.045) ng/ml Beta-Hydroxybutyric Acd (0.2-2.81) mg/dl Procalcitonin 0.16 (0-0.5) ng/ml Urine Color Urine Appearance (Clear) Urine pH (4.5-7.5) Ur Specific Bailey (1.000-1.030) Urine Protein (Negative) Urine Glucose (UA) (Negative) Urine Ketones (Negative) Urine Blood (Negative) Urine Nitrite (Negative) Urine Bilirubin (Negative) Urine Urobilinogen (Negative) Ur Leukocyte Esterase (Negative) Urine WBC (Auto) (0-5) /hpf Urine RBC (Auto) (0-4) /hpf U Hyaline Cast (Auto) (0-5) /lpf U Epithel Cells (Auto) (0-5) /lpf Urine Bacteria (Auto) (Negative) Urine Yeast (None Prsent) (1) Bimalleolar fracture of right ankle Encounter type: initial encounter Fracture type: closed Qualified Code(s): S82.841A - Displaced bimalleolar fracture of right lower leg, initial encounter for closed fracture
[2018-06-17] MEDS: ENOXAPARIN INJ 40 MG/0.4 ML SYR SQ SCH (12:46)
[2018-06-17] MEDS: ISOSORBIDE MONO EXTENDED REL 30 MG TABCR PO SCH (17:01)
[2018-06-17] MEDS: MONTELUKAST SODIUM 10 MG TABLET PO SCH (21:59)
[2018-06-17] MEDS: ATORVASTATIN 20 MG TAB PO SCH (22:00)
[2018-06-17] MEDS: ACETAMINOPHEN 325 MG TAB PO PRN (22:27)
[2018-06-18] MEDS: PIPERACILLIN/TAZOBACTAM 3.375 GM in DEXTROSE 5% 100 ML IV SCH ×4 (00:02→23:30)
[2018-06-18 06:20] LABS: Hematocrit (blood only) 30.4 % (37-47); Hemoglobin 9.6 g/dL (12.0-16.0); Mean Corpuscular Hgb Conc 31.6 g/dL (32-36); Mean Corpuscular Volume 92.4 fL (80-100); Mean Platelet Volume 11.2 fL (7.4-10.4); Platelet Count 145 K/uL (130-400); RDW Coefficient of Variation 13.7 % (11.5-14.5); RDW Standard Deviation 46.3 fL (36.4-46.3); Red Blood Count 3.29 M/uL (4.2-5.4); White Blood Count 11.54 K/uL (4.8-10.8)
[2018-06-18 06:37] LABS: BUN Creatinine Ratio 29.4 (10-20); Calcium 8.4 mg/dl (8.5-10.1); Creatinine Clr Calc Pharmacy 50.7 ml/min; Est GFR (Non-African American) 60.4; Magnesium 1.7 mg/dl (1.8-2.4); Potassium 3.6 mmol/L (3.5-5.1)
[2018-06-18] MEDS: LEVALBUTEROL HCL 0.63 MG/3 ML NEB NEB SCH ×3 (07:18→19:35)
[2018-06-18] MEDS: INSULIN ASPART 100 UNITS/ML 3 ML PEN SC SCH ×3 (07:55→17:01)
[2018-06-18] MEDS: LORATADINE 10 MG TAB PO SCH (07:56)
[2018-06-18] MEDS: PANTOprazole 40 MG TAB PO SCH (07:56)
[2018-06-18] MEDS: AMLODIPINE BESYLATE 5 MG TAB PO SCH (07:56)
[2018-06-18] MEDS: predniSONE 20 MG TAB PO SCH (07:56)
[2018-06-18] MEDS: DULOXETINE HCL 60 MG CAP PO SCH (07:56)
[2018-06-18] MEDS: MIRABEGRON ER 25 MG TAB PO SCH (07:56)
[2018-06-18] MEDS: LOSARTAN POTASSIUM 50 MG TAB PO SCH (07:56)
[2018-06-18] MEDS: ASPIRIN 81 MG ECTAB PO SCH ×2 (07:58→21:07)
[2018-06-18] MEDS: AZITHROMYCIN 250 MG TAB PO SCH (07:58)
[2018-06-18] MEDS: METOPROLOL TARTRATE 100 MG TAB PO SCH ×2 (07:58→21:08)
[2018-06-18] MEDS: GABAPENTIN 300 MG CAP PO SCH ×2 (07:58→21:06)
[2018-06-18] MEDS: ISOSORBIDE MONO EXTENDED REL 30 MG TABCR PO SCH (07:59)
[2018-06-18] MEDS: MICONAZOLE NITRATE POWDER 43 GM TOP SCH ×2 (07:59→23:03)
[2018-06-18] MEDS: INSULIN HUMAN NPH SC SCH (08:01)
[2018-06-18] MEDS: DOCUSATE SODIUM 100 MG CAP PO SCH ×2 (08:06→21:09)
[2018-06-18] MEDS: OXYCODONE HCL IR 5 MG TAB (IMMEDIATE RELEASE) PO PRN ×2 (08:06→21:17)
[2018-06-18] MEDS ORDERED: MAGNESIUM SULFATE / D5W 1 GM/100 ML BAG IV ONE (08:30)
--- NOTE | 2018-06-18 09:08 | Cardiology Consultation ---
Date of Consultation June 18, 2018 Assessment & Plan (1) Elevated troponin: Rosa Isela Hernandez is an 82 year old woman with history of CAD and MD with stent placement in 2009 who is having new central chest pain with elevated troponin CHEST PAIN * Central non radiating chest pain following breathing treatment lasting briefly she approximates about ten minutes * Troponin negative on admission, after chest pain early yesterday it tj .047 and has trended down since .032 on last assessment * ECG showing some anterolateral ST depressions initially after chest pain, ECG has since returned to baseline * Patient with known CAD, this new chest pain is likely due to increased demand secondary to her tachycardia and uncontrolled hypertension. * Recommendation for medical management and outpatient cards follow up with Dr. Sanders. Little benefit from further studies at this time. * Will increase atorvastatin dose to 40 mg as she is currently on low dose and no apparent contraindication to high dose therapy. (2) Chest pain: Supervising Physician Co-Signing Physician Notes Patient seen and examined with Dr. Timmons at the bedside. She describes central chest discomfort associated with her shortness of breath. It sounds as though it could be anginal, she has not been having exertional chest discomfort however. Her examination is unrevealing for a cause of chest discomfort. She was very hypertensive and tachycardic on presentation. Her troponins are very slightly elevated in a pattern which is not suggestive of an acute coronary event. Echocardiography shows good left ventricular function, electrocardiography does not show acute changes. Impression: Chest discomfort and slight enzyme rise due to demand ischemia in the setting of hypertension and tachycardia and hypoxia. No further evaluation at this time. Brandon Patterson MD History of Present Illness Reason for Consultation: Chest Pain with elevated troponins Attending Physician: Richard Thomas MD History of Present Illness Ms Rosa Isela Hernandez is an 82 year old woman with a medical history significant for CAD (Ruel-septal MD in 2009 with single drug eluting stent placement), CVA (Left parietal stroke in 2007), HTN, HLD, and Diastolic congestive heart failure (Last echo with EF of 55-60% in November of 2017). She initially presented to [facility] for an allergic reaction. 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 Pain was dull and persisted about ten minutes at a time. Occured multiple times, non reproducible, did not seem to be influenced by breathing. She is currently symptom free. She tells me she has not had any chest pain in the recent past and the last time she can remember anything similar was when she had her MD in 2009, though she admits that was a much more intense pain. On review of systems, she has not had any associated symptoms with the chest pain including, light headedness, palpitations, loss of consciousness, diaphoresis, nausea/vomiting, radiating pain, or altered mental status. Did not seem to be exercise induced but she has been in bed so it is hard for her to assess her physical ability. She is currently feeling well and has no other complaints. Allergies Allergy/AdvReac Type Severity Reaction Status Date / Time azelastine Allergy Intermediate elevated bp Verified 06/16/18 09:36 mivacurium Allergy Mild RASH Verified 06/16/18 09:36 citalopram Allergy Unknown UNKNOWN Verified 06/16/18 09:36 chlorpheniramine AdvReac Intermediate ELEVATED BP Verified 06/16/18 09:36 Corticosteroids AdvReac Intermediate ELEVATED BP Verified 06/16/18 09:36 (Glucocorticoids) fexofenadine AdvReac Intermediate ELEVATED BP Verified 06/16/18 09:36 fluticasone AdvReac Intermediate ELEVATED BP Verified 06/16/18 09:36 hydrocodone AdvReac Intermediate ELEVATED BP Verified 06/16/18 09:36 magnesium salicylate AdvReac Intermediate ELEVATED BP Verified 06/16/18 09:36 salicylates AdvReac Intermediate ELEVATED BP Verified 06/16/18 09:36 Home Medications Home Medications Medication Instructions Recorded Confirmed Type albuterol sulfate HFA 90 2 puffs INH Q6H PRN 11/28/17 06/16/18 History mcg/actuation aerosol inhaler amlodipine 10 mg tablet 10 mg PO QAM 11/28/17 06/16/18 History atorvastatin 20 mg tablet 20 mg PO HS 11/28/17 06/16/18 History docusate sodium 100 mg capsule 100 mg PO HS cap 11/28/17 06/16/18 History docusate sodium 100 mg capsule 200 mg PO QAM cap 11/28/17 06/16/18 History gabapentin 300 mg capsule 300 mg PO BID 11/28/17 06/16/18 History losartan 25 mg tablet 25 mg PO QAM 11/28/17 06/16/18 History metformin 500 mg tablet 500 mg PO QAM tab 11/28/17 06/16/18 History metoprolol tartrate 100 mg tablet 100 mg PO BID 11/28/17 06/16/18 History montelukast 10 mg tablet 10 mg PO QPM 11/28/17 06/16/18 History pantoprazole 40 mg tablet,delayed 40 mg PO QAM 11/28/17 06/16/18 History release vitamin B complex tablet 1 tab PO QAM 11/28/17 06/16/18 History acetaminophen [Tylenol Extra 500 mg PO TIDM 06/16/18 06/16/18 History Strength] acetaminophen [Tylenol] 650 mg PO Q4H PRN 06/16/18 06/16/18 History aspirin 81 mg PO AMHS 06/16/18 06/16/18 History calcium carbonate-vitamin D3 1 tab PO QAM 06/16/18 06/16/18 History [Calcium 600 + D(3)] diphenhydramine HCl [Benadryl 25 mg PO NOW 06/16/18 06/16/18 History Allergy] duloxetine [Cymbalta] 60 mg PO QAM 06/16/18 06/16/18 History ipratropium-albuterol 3 ml INHALATION Q4H PRN 06/16/18 06/16/18 History loratadine 10 mg PO NOW 06/16/18 06/16/18 History loratadine 10 mg PO QAM 06/16/18 06/16/18 History losartan 50 mg PO QAM 06/16/18 06/16/18 History melatonin 5 mg PO HS 06/16/18 06/16/18 History methylprednisolone acetate 40 mg IM NOW 06/16/18 06/16/18 History miconazole nitrate 1 applic TOPICAL BID 06/16/18 06/16/18 History multivitamin 1 tab PO QAM 06/16/18 06/16/18 History oxycodone 5 mg PO Q6H PRN 06/16/18 06/16/18 History polyethylene glycol 3350 [Miralax] 17 g PO QAM 06/16/18 06/16/18 History ranitidine HCl 150 mg PO BID 06/16/18 06/16/18 History ranitidine HCl 150 mg PO NOW 06/16/18 06/16/18 History trospium 20 mg PO QAM 06/16/18 06/16/18 History tuberculin PPD [Tubersol] 5 tb unit INTRADERMAL UD 06/16/18 06/16/18 History Patient History Medical History CKD (chronic kidney disease), stage II Chronic diastolic heart failure Chronic lumbar pain Anxiety (Chronic) Arthritis (Chronic) Asthma (Chronic) CAD (coronary artery disease) (Chronic) Cataract (Chronic) Diabetes (Chronic) Diabetic neuropathy (Chronic) Hypertension (Chronic) Kidney disease (Chronic) Lumbago (Chronic) Sciatic nerve pain (Chronic) Surgical History Hx laparoscopic cholecystectomy Hx of tubal ligation Family History Other Cancer Social History Communication Ability: Impaired Beliefs That Will Affect Care: None marital status: / marital status details: dmitriy Current Living Situation: Intermediate current occupational status: retired Other Information That Helps Us Care for You: No Feels Safe at Home: Yes Safety Concerns: Feels Safe At This Time Smoking Status: Never smoker Hx Alcohol Use: No Hx Substance Use: No Review of Systems Constitutional: no fever, no chills, no sweats, no fatigue and no weakness Respiratory: no cough, no dyspnea, no pain on inspiration and no wheezing Cardiovascular: + chest pain (Currently resolved) and + chest pain at rest (Currently Resolved); no radiating jaw, neck or arm pain, no dyspnea at rest, no palpitations, no syncope and no calf pain Gastrointestinal: no abdominal pain, no nausea, no vomiting and no constipation Physical Exam Vital Signs (Past 24 Hours): Last Vital Signs Temp 36.3 C L 06/18/18 07:26 Pulse 83 06/18/18 07:26 Resp 20 06/18/18 07:26 BP 193/74 H 06/18/18 07:26 Pulse Ox 100 06/18/18 07:26 Constitutional: cooperative and comfortable; no acute distress and not ill appearing Respiratory: normal respiratory effort; no respiratory distress and no labored breathing Auscultation: lungs clear to auscultation bilaterally (Examined recently after breathing treatment); no crackles, no rales, no rhonchi and no wheezes Cardiovascular: Rate/Rhythm: regular rate and regular rhythm Heart Sounds: no click, no gallop, no murmur and no cardiac rub Vessels: posterior tibial pulses present (On left, cast obstructing on right) and radial pulses present Extremities: normal capillary refill; no calf tenderness (On left cast obstructing on right) and no pedal edema Gastrointestinal (Abdomen): Inspection/Auscultation: abdomen normal to inspection Percussion/Palpation: abdomen soft; abdomen nontender Musculoskeletal: No chest pain reproducible to palpation/compression of sternum or rib cage Resident Activity Tracking Resident Involvement: Resident Care Provided Care Provided: Adult Hospital Medicine
[2018-06-18] MEDS: ENOXAPARIN INJ 40 MG/0.4 ML SYR SQ SCH (12:36)
--- NOTE | 2018-06-18 13:37 | Hospitalist Progress Note ---
Date of Service June 18, 2018 Assessment & Plan (1) Allergic reaction: - Presented with allergic reaction - possibly related to Trospium, was started on 06/05/18 at [facility]. - Rash resolved - Continue Loratadine 10 mg daily, Ranitidine 150 mg BID as prescribed. 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 (2) Chest pain: - Developed chest pain, tachycardia following neb treatment 06/16 ; symptoms now resolved. - EKG showed new ST depression in the anterior leads; repeat EKG following BB dose was negative. - Trop peaked at 0.047 - Echo pending - Continue cardiac meds as prescribed. - Consult cardiology (3) Elevated troponin: - Peaked at 0.047, now trending down. - no further study necessary per cardiology, likely secondary to hypertension and tachycardia (4) Pneumonia: - Was treated with Augmentin PO for PNA during last admission, completed course on 06/02/18. - CT chest in ER showed no PE, patchy tree-in-bud opacities and groundglass opacities in both lungs -- may be related to viral vs. bacterial process. - Continue Zosyn & Azithromycin - BC ng - Continue Xopenex scheduled (due to tachycardia) - Procalcitonin level negative; UC growing yeast (5) Acute respiratory failure with hypoxia: - Now weaned to room air. - Likely related to PNA. (6) Acute kidney injury: - resolved with IVF (7) CKD (chronic kidney disease) stage 2, GFR 60-89 ml/min: - avoid nephrotoxins where possible (8) Bimalleolar fracture of right ankle: - S/p ORIF on 05/23/18. - Continue Tylenol and Oxycodone prn pain. - Aspirin 81 mg BID for DVT ppx. - PT/OT ordered - right non-weight bearing. (9) Chronic lumbar pain: - Related to sciatica. - Continue Cymbalta 60 mg daily and Gabapentin 300 mg BID. - Evaluated by pain management as outpatient. (10) Coronary artery disease: - S/p placement of drug eluting stent in the LAD in 2009 following anterior septal wall OK in May 2009. - Continue statin as increased per cardiology, aspirin and beta nel as prescribed. Will add Imdur 30 mg daily. - Cardiac work up for acute chest pain as noted above. (11) Benign essential hypertension: - BP has been uncontrolled -- is very hypertensive at baseline (refer to last admission). - Has documented allergy to steroids with HTN noted -- plan to continue steroids at this point due to allergic reaction. - Continue Amlodipine 10 mg daily, Losartan 50 mg daily (recently increased at group home) and Metoprolol 100 mg BID. - Imdur 30 mg PO daily started 06/16. Patient had a large drop in pressure this morning, will continue to follow pressures but if they remain low, may need to cut imdur for tomorrow morning. - Hydralazine 10 mg IV q6hr prn HTN. (12) Hyperlipidemia: - Continue statin as prescribed. (13) Chronic diastolic heart failure: - Echo in Nov 2017 showed EF 50-55%, mild LVH. Repeat TTE is ordered. - Monitor net I/O's and daily weights. - Continue BB as prescribed. 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 - Continue aspirin/statin. (15) Carotid stenosis: - Continue aspirin, statin as prescribed. - Will need f/u doppler in Feb 2019 per cardiology notes. (16) Type 2 diabetes mellitus: - Hold home Metformin. - Hemoglobin A1C was 6.6. - BG elevated in setting of steroids; consulted pharmacy for glycemic management. (17) Osteopenia: - DEXA scan in July 2016. (18) Urinary incontinence: - Continue Myrbetriq as prescribed. - Recently started on Trospium at [facility], now discontinued. (19) GERD (gastroesophageal reflux disease): - Continue PPI daily and Ranitidine 150 mg BID. (20) Anxiety: - Continue Duloxetine as prescribed. (21) Allergic rhinitis: - Continue Singulair as prescribed. (22) Electrolyte abnormality: - Mag level 1.7 -- replaced - Monitor levels qAM. (23) DVT prophylaxis: - SCDs; Aspirin 81 mg BID and Lovenox 40 mg subQ q24hr. Dispo: Will likely need to be discharged back to [facility] at discharge. Subjective Ms. Hernandez does not feel well generally today. She feels a little sob, moist non productive cough. Review of Systems All systems reviewed & are unremarkable except as noted in HPI & below Physical Exam 2 Vital Signs (Past 24 Hours): Last Vital Signs Temp 36.7 C 04/15/19 11:02 Pulse 63 06/18/18 11:02 Resp 16 06/18/18 11:02 BP 104/48 L 06/18/18 11:02 Pulse Ox 91 06/18/18 11:02 Physical Exam: General: no distress Eyes: normal inspection, PERLL Respiratory: chest non tender, clear to auscultation, normal breath sounds, no respiratory distress, no accessory muscle use Cardiac: regular rate and rhythm, no rub or gallop, no murmur, no edema, no jvd GI/: active bowel sounds, no abd pain or tenderness, soft, non distended Extremities: normal range of motion, normal strength, non tender Neuro/Psych: alert and oriented x 3, normal mood and affect Skin: normal color, dry Results & Data Laboratory Results Abnormal lab results 06/17/18 06/17/18 06/18/18 Range/Units 16:30 20:33 06:07 WBC 11.54 H (4.8-10.8) K/uL RBC 3.29 L (4.2-5.4) M/uL Hgb 9.6 L (12.0-16.0) g/dL Hct 30.4 L (37-47) % MCHC 31.6 L (32-36) g/dL MPV 11.2 H (7.4-10.4) fL Chloride (98-107) mmol/L BUN (7-18) mg/dl BUN/Creatinine Ratio (10-20) POC Glucose 242 H 171 H (70-99) Calcium (8.5-10.1) mg/dl Magnesium (1.8-2.4) mg/dl 06/18/18 Range/Units 06:07 WBC (4.8-10.8) K/uL RBC (4.2-5.4) M/uL Hgb (12.0-16.0) g/dL Hct (37-47) % MCHC (32-36) g/dL MPV (7.4-10.4) fL Chloride 110 H (98-107) mmol/L BUN 26 H (7-18) mg/dl BUN/Creatinine Ratio 29.4 H (10-20) POC Glucose (70-99) Calcium 8.4 L (8.5-10.1) mg/dl Magnesium 1.7 L (1.8-2.4) mg/dl (1) Bimalleolar fracture of right ankle Encounter type: initial encounter Fracture type: closed Qualified Code(s): S82.841A - Displaced bimalleolar fracture of right lower leg, initial encounter for closed fracture
--- NOTE | 2018-06-18 14:19 | Pharmacy Report ---
Pharmacy Glycemic Short Note 2 - Date of Service June 18, 2018 - Glycemic Short BSG Results (Last 24 hours): 06/17/18 06/17/18 06/18/18 16:30 20:33 06:07 Glucose 74 POC Glucose 242 H 171 H 06/18/18 12:06 Glucose POC Glucose 75 OUTPATIENT ANTIDIABETIC REGIMEN: * Metformin 500mg QAM ASSESSMENT: 06/18/18 * Ms Hernandez received 56 units of insulin yesterday. (30 units of NPH, 26 units of bolus) * I would expect that we are no longer seeing the effect of the dexamethasone given on 06/16. * Fasting and lunchtime bsg's well below goal today. Loosened CF and CR to prevent hypoglycemia. * Increased goal range for bedtime bsg check to further prevent hypoglycemia. * Pt remains on prednisone 40mg daily so we will continue NPH but at a lower dose (~0.3units/kg) 06/17/18 * 82yo T2DM female with adequate outpatient control per recent A1c. * Pt is maintained on metformin monotherapy as an outpatient. This is being held for admission and utilizing SQ basal bolus insulin regimen for steroid induced hyperglycemia. * Pt received dexamethasone 10mg IV x 1 in ED + prednisone 40mg PO last evening. Pt with significant hyperglycemia yesterday after these doses of steroids. * Pt is currently receiving ~ 100 units of insulin per day with near adequate control. * Expect daily insulin requirement to decrease with each step down in steroid dosing. Pt is only to receive prednsione 40mg daily starting today (no more dexamethasone). Will decrease regimen today to prevent hypoglycemia. * Pt insulin Rx = basal insulin {n/a based on A1c}, bolus insulin {NovoLog}, and steroid hyperglycemia insulin {NPH} * NPH insulin is used to counteract the hyperglycemic effect of prednisone. The rationale for this approach is that the pharmacodynamics profile of NPH, with a peak effect of 4-8hrs and duration of action of 12-16hrs, mirrors the pharmacodynamics of prednisone. NPH should be dosed at the same time that prednisone is given * The dose of NPH given is dependent on the steroid dose given * For doses of prednisone 40mg/day or above NPH dose should be 0.4 units/kg. * Pt Rx NPH 40 units SQ x 1 dose for dxm and then an additional NPH 20 units SQ x 1 dose for prednisone 40mg * NPH dosing above is given in addition to patients basal insulin needs * Typically, patients will also need rapid-acting insulin with meals * Will continue to titrate insulin dosing with each step down in steroid dosing PLAN FOR INPATIENT GLYCEMIC CONTROL: * Hold outpatient oral diabetes medications * NPH 25 units (0.3 units/kg) Sq daily to be given at the same time as prednisone 40mg daily * Bolus insulin * NovoLog per scale ACHS or Q6hrs while NPO * Goal Range: Low 110 mg/dL - High 140 mg/dL * Goal range for bedtime bsg: Low 140 mg/dL - High 180 mg/dL * Correction Factor: 25 mg/dL/unit- loosened * Nutritional / Prandial insulin per carb ratio of 1 unit per 9 grams CHO consumed- loosened * Please note that the plan above was derived based on current level of insulin resistance and hospital stress. These recommendations are appropriate for inpatient admission only. Plan of care upon discharge will need to be reassessed to avoid potential outpatient hypo/hyperglycemia.
[2018-06-18] MEDS ORDERED: INSULIN ASPART 100 UNITS/ML 3 ML PEN SC ONE (21:00)
[2018-06-18] MEDS: ATORVASTATIN 20 MG TAB PO SCH (21:06)
[2018-06-18] MEDS: MONTELUKAST SODIUM 10 MG TABLET PO SCH (21:07)
[2018-06-18] MEDS: LORazepam 0.5 MG TAB PO PRN (23:12)
[2018-06-18] MEDS: HydrALAZINE HCL 20 MG/ML VIAL IV PRN (23:12)
[2018-06-19] MEDS: LEVALBUTEROL HCL 0.63 MG/3 ML NEB NEB SCH ×3 (06:55→19:05)
[2018-06-19] MEDS: GABAPENTIN 300 MG CAP PO SCH ×2 (07:59→21:05)
[2018-06-19] MEDS: AZITHROMYCIN 250 MG TAB PO SCH (07:59)
[2018-06-19] MEDS: PANTOprazole 40 MG TAB PO SCH (07:59)
[2018-06-19] MEDS: MIRABEGRON ER 25 MG TAB PO SCH (08:00)
[2018-06-19] MEDS: AMLODIPINE BESYLATE 5 MG TAB PO SCH (08:00)
[2018-06-19] MEDS: ASPIRIN 81 MG ECTAB PO SCH ×2 (08:01→21:05)
[2018-06-19] MEDS: METOPROLOL TARTRATE 100 MG TAB PO SCH ×2 (08:01→21:06)
[2018-06-19] MEDS: LORATADINE 10 MG TAB PO SCH (08:01)
[2018-06-19] MEDS: LOSARTAN POTASSIUM 50 MG TAB PO SCH ×2 (08:01→21:05)
[2018-06-19] MEDS: DULOXETINE HCL 60 MG CAP PO SCH (08:01)
[2018-06-19] MEDS: MICONAZOLE NITRATE POWDER 43 GM TOP SCH ×2 (08:01→21:06)
[2018-06-19] MEDS: INSULIN ASPART 100 UNITS/ML 3 ML PEN SC SCH ×4 (08:03→21:21)
[2018-06-19] MEDS: PIPERACILLIN/TAZOBACTAM 3.375 GM in DEXTROSE 5% 100 ML IV SCH ×3 (08:06→23:20)
[2018-06-19] MEDS: DOCUSATE SODIUM 100 MG CAP PO SCH ×3 (08:06→21:05)
[2018-06-19] MEDS: predniSONE 20 MG TAB PO SCH (08:08)
[2018-06-19] MEDS ORDERED: INSULIN HUMAN NPH SC SCH (09:00)
[2018-06-19] MEDS: ISOSORBIDE MONO EXTENDED REL 60 MG TABCR PO SCH (09:41)
--- NOTE | 2018-06-19 10:43 | Pharmacy Report ---
Pharmacy Glycemic Short Note 2 - Date of Service June 19, 2018 - Glycemic Short BSG Results (Last 24 hours): 06/18/18 06/18/18 06/18/18 12:06 16:44 21:11 POC Glucose 75 171 H 227 H 06/19/18 07:27 POC Glucose 76 OUTPATIENT ANTIDIABETIC REGIMEN: * Metformin 500mg QAM * HbA1c= 6.6% on 05/20/18 ASSESSMENT: * Pt remains on prednisone 40mg daily and zosyn. * She received a total of 42 units of insulin yesterday. 30 units of NPH for prednisone induced hyperglycemia, and 12 units of bolus insulin. * Decreased NPH dose this morning as fbs was below goal (76mg/dL). * Post prandial bsg's increased throughout the day yesterday so carb ratio was tightened today. * Will increase bedtime only sliding scale goal range since she appears to be very sensitive to HS correctional insulin. Bsg went from 227mg/dL last evening to 76 mg/dL this morning with 2 units of insulin. 06/18/18 * Ms Hernandez received 56 units of insulin yesterday. (30 units of NPH, 26 units of bolus) * I would expect that we are no longer seeing the effect of the dexamethasone given on 06/16. * Fasting and lunchtime bsg's well below goal today. Loosened CF and CR to prevent hypoglycemia. * Increased goal range for bedtime bsg check to further prevent hypoglycemia. * Pt remains on prednisone 40mg daily so we will continue NPH but at a lower dose (~0.3units/kg) 06/17/18 * 82yo T2DM female with adequate outpatient control per recent A1c. * Pt is maintained on metformin monotherapy as an outpatient. This is being held for admission and utilizing SQ basal bolus insulin regimen for steroid induced hyperglycemia. * Pt received dexamethasone 10mg IV x 1 in ED + prednisone 40mg PO last evening. Pt with significant hyperglycemia yesterday after these doses of steroids. * Pt is currently receiving ~ 100 units of insulin per day with near adequate control. * Expect daily insulin requirement to decrease with each step down in steroid dosing. Pt is only to receive prednsione 40mg daily starting today (no more dexamethasone). Will decrease regimen today to prevent hypoglycemia. * Pt insulin Rx = basal insulin {n/a based on A1c}, bolus insulin {NovoLog}, and steroid hyperglycemia insulin {NPH} * NPH insulin is used to counteract the hyperglycemic effect of prednisone. The rationale for this approach is that the pharmacodynamics profile of NPH, with a peak effect of 4-8hrs and duration of action of 12-16hrs, mirrors the pharmacodynamics of prednisone. NPH should be dosed at the same time that prednisone is given * The dose of NPH given is dependent on the steroid dose given * For doses of prednisone 40mg/day or above NPH dose should be 0.4 units/kg. * Pt Rx NPH 40 units SQ x 1 dose for dxm and then an additional NPH 20 units SQ x 1 dose for prednisone 40mg * NPH dosing above is given in addition to patients basal insulin needs * Typically, patients will also need rapid-acting insulin with meals * Will continue to titrate insulin dosing with each step down in steroid dosing PLAN FOR INPATIENT GLYCEMIC CONTROL: * Hold outpatient oral diabetes medications * NPH 25 units (0.3 units/kg) Sq daily to be given at the same time as prednisone 40mg daily * Bolus insulin * NovoLog per scale ACHS or Q6hrs while NPO * Goal Range: Low 110 mg/dL - High 140 mg/dL * Goal range for bedtime bsg: Low 140 mg/dL - High 180 mg/dL * Correction Factor: 25 mg/dL/unit * Nutritional / Prandial insulin per carb ratio of 1 unit per 8 grams CHO consumed- tightened * Please note that the plan above was derived based on current level of insulin resistance and hospital stress. These recommendations are appropriate for inpatient admission only. Plan of care upon discharge will need to be reassessed to avoid potential outpatient hypo/hyperglycemia.
--- NOTE | 2018-06-19 10:57 | Hospitalist Progress Note ---
Date of Service June 19, 2018 Assessment & Plan (1) Allergic reaction: - Presented with allergic reaction - possibly related to Trospium, was started on 06/05/18 at [facility]. - Rash resolved - Continue Loratadine 10 mg daily, Ranitidine 150 mg BID as prescribed. 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 (2) Chest pain: - Developed chest pain, tachycardia following neb treatment 06/16 ; symptoms now resolved. - EKG showed new ST depression in the anterior leads; repeat EKG following BB dose was negative. - Trop peaked at 0.047 - Echo without WMA, EF 55%, elevated right ventricular pressures - Continue cardiac meds as prescribed. - Consulted cardiology - they feel the pain and increase in troponin is secondary to hypertensive urgency. (3) Hypertensive urgency: - BP has been uncontrolled -- is very hypertensive at baseline (refer to last admission). Systolic BPs as high as 215 - Has documented allergy to steroids with HTN noted -- will discontinue prednisone 06/19 as allergic reaction has cleared and hopefully will help to bring her pressures back down - Continue Amlodipine 10 mg daily, will increase Losartan from 50 mg daily to BID to help decrease morning elevated pressures, and continue Metoprolol 100 mg BID. - Imdur 30 mg PO daily started 06/16 and increased 06/19 to 60 mg daily. - Hydralazine 10 mg IV q6hr prn HTN. (4) Elevated troponin: - Peaked at 0.047, now trending down. - no further study necessary per cardiology, likely secondary to hypertension and tachycardia (5) Pneumonia: - Was treated with Augmentin PO for PNA during last admission, completed course on 06/02/18. - CT chest in ER showed no PE, patchy tree-in-bud opacities and groundglass opacities in both lungs -- may be related to viral vs. bacterial process. - Continue Zosyn & Azithromycin - BC ng - Continue Xopenex scheduled (due to tachycardia) - Procalcitonin level negative; UC growing yeast (6) Acute respiratory failure with hypoxia: - Now weaned to room air. - Likely related to PNA. (7) Acute kidney injury: - resolved with IVF (8) CKD (chronic kidney disease) stage 2, GFR 60-89 ml/min: - avoid nephrotoxins where possible (9) Bimalleolar fracture of right ankle: - S/p ORIF on 05/23/18. - Continue Tylenol and Oxycodone prn pain. - Aspirin 81 mg BID for DVT ppx. - PT/OT ordered - right non-weight bearing. (10) Chronic lumbar pain: - Related to sciatica. - Continue Cymbalta 60 mg daily and Gabapentin 300 mg BID. - Evaluated by pain management as outpatient. (11) Coronary artery disease: - S/p placement of drug eluting stent in the LAD in 2009 following anterior septal wall MA in May 2009. - Continue statin as increased per cardiology, aspirin and beta nel as prescribed. Will increas Imdur to 60 mg daily. - Cardiac work up for acute chest pain as noted above. (12) Hyperlipidemia: - Continue statin as prescribed. (13) Chronic diastolic heart failure: - Echo in Nov 2017 showed EF 50-55%, mild LVH. Repeat TTE with elevated right heart pressures and EF 55% - Monitor net I/O's and daily weights - patient up 1400 ml cumulative and 1 kg from yesterday, with elevated pressures and new wheezing today in her bases, may be a bit fluid overloaded. Will given 40 mg IV lasix x1. Maintain low sodium diet. - Continue BB as prescribed. 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 - Continue aspirin/statin. (15) Carotid stenosis: - Continue aspirin, statin as prescribed. - Will need f/u doppler in Feb 2019 per cardiology notes. (16) Type 2 diabetes mellitus: - Hold home Metformin. - Hemoglobin A1C was 6.6. - BG elevated in setting of steroids; consulted pharmacy for glycemic management. (17) Osteopenia: - DEXA scan in July 2016. (18) Urinary incontinence: - Continue Myrbetriq as prescribed. - Recently started on Trospium at [facility], now discontinued. (19) GERD (gastroesophageal reflux disease): - Continue PPI daily and Ranitidine 150 mg BID. (20) Anxiety: - Continue Duloxetine as prescribed. (21) Allergic rhinitis: - Continue Singulair as prescribed. (22) Electrolyte abnormality: - Mag level 1.7 -- replaced - Monitor levels qAM. (23) DVT prophylaxis: - SCDs; Aspirin 81 mg BID and Lovenox 40 mg subQ q24hr. Dispo: Will likely need to be discharged back to SNF at discharge. Subjective Ms. Hernandez is feeling very run down and unwell though she is not able to be more specific. Her blood pressures continue to be significantly elevated. Review of Systems All systems reviewed & are unremarkable except as noted in HPI & below Physical Exam Vital Signs (Past 24 Hours): Last Vital Signs Temp 36.7 C 06/19/18 07:53 Pulse 86 06/19/18 07:53 Resp 20 06/19/18 07:53 BP 215/77 H 06/19/18 07:53 Pulse Ox 91 06/19/18 07:53 Physical Exam: General: no distress Eyes: normal inspection, PERLL Respiratory: chest non tender, expiratory wheezing bilateral bases, no respiratory distress, no accessory muscle use Cardiac: regular rate and rhythm, no rub or gallop, no murmur, no edema, no jvd GI/: active bowel sounds, no abd pain or tenderness, soft, non distended Extremities: normal range of motion, normal strength, non tender Neuro/Psych: alert and oriented x 3, normal mood and affect Skin: normal color, dry Results & Data Laboratory Results Abnormal lab results 06/18/18 06/18/18 Range/Units 16:44 21:11 POC Glucose 171 H 227 H (70-99) (1) Bimalleolar fracture of right ankle Encounter type: initial encounter Fracture type: closed Qualified Code(s): S82.841A - Displaced bimalleolar fracture of right lower leg, initial encounter for closed fracture
[2018-06-19] MEDS ORDERED: FUROSEMIDE 40 MG/4 ML VIAL IV STA (11:11)
[2018-06-19] MEDS: ENOXAPARIN INJ 40 MG/0.4 ML SYR SQ SCH (15:27)
--- NOTE | 2018-06-19 16:07 | Cardiology Progress Note ---
Date of Service June 19, 2018 Assessment & Plan (1) Elevated troponin: Her troponin has returned to normal after being very minimally elevated, consistent with demand ischemia due to high blood pressure, tachycardia and hypoxia (2) Chest pain: It is possible her chest discomfort was due to ischemia and may have been angina, however it was under extreme situation and I would watch for recurrence. I would not consider invasive evaluation at this time. Subjective She is feeling better today, she denies symptoms of chest discomfort and her shortness of breath is improved. Physical Exam Vital Signs (Past 24 Hours): Last Vital Signs Temp 36.7 C 06/19/18 15:17 Pulse 74 06/19/18 15:17 Resp 18 06/19/18 15:17 BP 132/69 06/19/18 15:17 Pulse Ox 88 L 06/19/18 15:17 Physical Exam: Constitutional: Alert, cooperative and in no distress. Pulmonary: Clear to auscultation bilaterally. Cardiac: Regular rhythm with a grade 2/6 holosystolic murmur at the apex, no gallop or rub. Abdomen: Soft, nontender with normal bowel sounds. Extremities: No edema. Skin: No rash, ecchymoses or petechiae. Results & Data Diagnostic Findings Telemetry: Sinus rhythm, no significant abnormality
[2018-06-19] MEDS: MONTELUKAST SODIUM 10 MG TABLET PO SCH (21:04)
[2018-06-19] MEDS: ATORVASTATIN 20 MG TAB PO SCH (21:05)
[2018-06-19] MEDS: LORazepam 0.5 MG TAB PO PRN (21:21)
[2018-06-20] MEDS: HydrALAZINE HCL 20 MG/ML VIAL IV PRN ×2 (03:05→23:28)
[2018-06-20 05:47] LABS: Hematocrit (blood only) 32.9 % (37-47); Hemoglobin 10.3 g/dL (12.0-16.0); Mean Corpuscular Hgb Conc 31.3 g/dL (32-36); Mean Corpuscular Volume 91.4 fL (80-100); Mean Platelet Volume 10.7 fL (7.4-10.4); Platelet Count 180 K/uL (130-400); RDW Coefficient of Variation 13.5 % (11.5-14.5); White Blood Count 11.01 K/uL (4.8-10.8)
[2018-06-20 06:08] LABS: BUN Creatinine Ratio 31.9 (10-20); Calcium 8.6 mg/dl (8.5-10.1); Creatinine Clr Calc Pharmacy 49.6 ml/min; Est GFR (African American) 67.3; Magnesium 1.8 mg/dl (1.8-2.4); Potassium 3.5 mmol/L (3.5-5.1)
[2018-06-20] MEDS: LEVALBUTEROL HCL 0.63 MG/3 ML NEB NEB SCH ×3 (06:55→19:03)
[2018-06-20] MEDS: PANTOprazole 40 MG TAB PO SCH (08:28)
[2018-06-20] MEDS: MIRABEGRON ER 25 MG TAB PO SCH (08:29)
[2018-06-20] MEDS: METOPROLOL TARTRATE 100 MG TAB PO SCH ×2 (08:29→20:50)
[2018-06-20] MEDS: ISOSORBIDE MONO EXTENDED REL 60 MG TABCR PO SCH (08:30)
[2018-06-20] MEDS: DULOXETINE HCL 60 MG CAP PO SCH (08:31)
[2018-06-20] MEDS: AZITHROMYCIN 250 MG TAB PO SCH (08:31)
[2018-06-20] MEDS: GABAPENTIN 300 MG CAP PO SCH ×2 (08:32→20:52)
[2018-06-20] MEDS: LORATADINE 10 MG TAB PO SCH (08:32)
[2018-06-20] MEDS: AMLODIPINE BESYLATE 5 MG TAB PO SCH (08:33)
[2018-06-20] MEDS: ASPIRIN 81 MG ECTAB PO SCH ×2 (08:34→20:50)
[2018-06-20] MEDS: LOSARTAN POTASSIUM 50 MG TAB PO SCH ×2 (08:34→20:52)
[2018-06-20] MEDS: MICONAZOLE NITRATE POWDER 43 GM TOP SCH ×2 (08:43→22:03)
[2018-06-20] MEDS: PIPERACILLIN/TAZOBACTAM 3.375 GM in DEXTROSE 5% 100 ML IV SCH (09:00)
[2018-06-20] MEDS: INSULIN ASPART 100 UNITS/ML 3 ML PEN SC SCH ×4 (09:45→21:18)
[2018-06-20] MEDS: ACETAMINOPHEN 325 MG TAB PO PRN (11:07)
[2018-06-20] MEDS: DOCUSATE SODIUM 100 MG CAP PO SCH ×2 (11:29→20:58)
--- NOTE | 2018-06-20 14:11 | Hospitalist Progress Note ---
Date of Service June 20, 2018 Assessment & Plan (1) Allergic reaction: - Presented with allergic reaction - possibly related to Trospium, was started on 06/05/[address] [facility]. - Rash resolved - Continue Loratadine 10 mg daily, Ranitidine 150 mg BID as prescribed. 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 (2) Chest pain: - Developed chest pain, tachycardia following neb treatment 06/16 ; symptoms now resolved. - EKG showed new ST depression in the anterior leads; repeat EKG following BB dose was negative. - Trop peaked at 0.047 - Echo without WMA, EF 55%, elevated right ventricular pressures - Consulted cardiology - they feel the pain and increase in troponin is secondary to hypertensive urgency. (3) Hypertensive urgency: - BP has been uncontrolled -- is very hypertensive at baseline (refer to last admission). Systolic BPs as high as 215 - Has documented allergy to steroids with HTN noted -- discontinued prednisone 06/19 as allergic reaction has cleared and hopefully will help to bring her pressures back down - Continue Amlodipine 10 mg daily, will increase Losartan from 50 mg daily to BID to help decrease morning elevated pressures, and continue Metoprolol 100 mg BID. - Imdur 30 mg PO daily started 06/16 and increased 06/19 to 60 mg daily. - Hydralazine 10 mg IV q6hr prn HTN. - Unfortunately Ms. Hernandez is refusing blood pressures in her upper arm and I'm not sure how accurate the current readings are as they are ranging by as much as 100 mmHg. I will add hydralazine po low dose tonight to try and keep the nighttime/early blood pressure spikes from occurring in addition to the evening losartan added last night. (4) Elevated troponin: - Peaked at 0.047, now trending down. - no further study necessary per cardiology, likely secondary to hypertension and tachycardia (5) Pneumonia: - Was treated with Augmentin PO for PNA during last admission, completed course on 06/02/18. - CT chest in ER showed no PE, patchy tree-in-bud opacities and groundglass opacities in both lungs -- may be related to viral vs. bacterial process. - Will discontinue Zosyn and provide two more days of Augmentin with azithromycin po - Continue Xopenex scheduled (due to tachycardia) - Procalcitonin level negative; UC growing yeast (6) Acute respiratory failure with hypoxia: - Now weaned to room air. - Likely related to PNA. (7) Acute kidney injury: - resolved with IVF (8) CKD (chronic kidney disease) stage 2, GFR 60-89 ml/min: - avoid nephrotoxins where possible (9) Bimalleolar fracture of right ankle: - S/p ORIF on 05/23/18. - Continue Tylenol and Oxycodone prn pain. - Aspirin 81 mg BID for DVT ppx. - PT/OT ordered - right non-weight bearing. (10) Chronic lumbar pain: - Related to sciatica. - Continue Cymbalta 60 mg daily and Gabapentin 300 mg BID. - Evaluated by pain management as outpatient. (11) Coronary artery disease: - S/p placement of drug eluting stent in the LAD in 2009 following anterior septal wall [place] in May 2009. - Continue statin as increased per cardiology, aspirin and beta nel as prescribed. Increased Imdur to 60 mg daily. - Cardiac work up for acute chest pain as noted above. (12) Hyperlipidemia: - Continue statin as prescribed. (13) Chronic diastolic heart failure: - Echo in Nov 2017 showed EF 50-55%, mild LVH. Repeat TTE with elevated right heart pressures and EF 55% - Monitor net I/O's and daily weights - given a dose of lasix yesterday, respiratory status improved today - Continue BB as prescribed. 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 - Continue aspirin/statin. (15) Carotid stenosis: - Continue aspirin, statin as prescribed. - Will need f/u doppler in Feb 2019 per cardiology notes. (16) Type 2 diabetes mellitus: - Hold home Metformin. - Hemoglobin A1C was 6.6. - BG elevated in setting of steroids; consulted pharmacy for glycemic management. (17) Osteopenia: - DEXA scan in July 2016. (18) Urinary incontinence: - Continue Myrbetriq as prescribed. - Recently started on Trospium at [facility], now discontinued. (19) GERD (gastroesophageal reflux disease): - Continue PPI daily and Ranitidine 150 mg BID. (20) Anxiety: - Continue Duloxetine as prescribed. (21) Allergic rhinitis: - Continue Singulair as prescribed. (22) Electrolyte abnormality: - Mag level 1.7 -- replaced (23) DVT prophylaxis: - SCDs; Aspirin 81 mg BID and Lovenox 40 mg subQ q24hr. Dispo: Will likely need to be discharged back to SNF at discharge. Subjective Ms. Hernandez is having some stomach discomfort and feels tired. She continues to spike high blood pressures at times. Unfortunately she is refusing blood pressures in her upper arms manual or otherwise. Her pressures are being measure in her forearm and I'm not sure how accurate they actually are. Review of Systems Review of Systems: All systems reviewed & are unremarkable except as noted in HPI & below Physical Exam Physical Exam: General: no distress Eyes: normal inspection, PERLL Respiratory: chest non tender, clear to auscultation, normal breath sounds, no respiratory distress, no accessory muscle use Cardiac: regular rate and rhythm, no rub or gallop, no murmur, no edema, no jvd GI/: active bowel sounds, no abd pain or tenderness, soft, non distended Extremities: normal range of motion, normal strength, non tender Neuro/Psych: alert and oriented x 3, normal mood and affect Skin: normal color, dry Results & Data Vital Signs (Past 12 Hours) Vital Signs Temp Pulse Resp BP BP Pulse Ox 06/20/18 13:23 104/49 L 06/20/18 12:00 66 18 91/51 L 92 06/20/18 08:00 36.9 C 82 16 147/74 H 90 06/20/18 06:55 78 16 92 06/20/18 03:44 79 131/53 L 06/20/18 02:46 37.4 C 76 19 203/74 H 92 (1) Bimalleolar fracture of right ankle Encounter type: initial encounter Fracture type: closed Qualified Code(s): S82.841A - Displaced bimalleolar fracture of right lower leg, initial encounter for closed fracture
--- NOTE | 2018-06-20 15:02 | Pharmacy Report ---
Pharmacy Glycemic Short Note 2 - Date of Service June 20, 2018 - Glycemic Short BSG Results (Last 24 hours): 06/19/18 06/19/18 06/20/18 16:23 20:22 05:28 Glucose 102 H POC Glucose 168 H 178 H 06/20/18 06/20/18 07:45 11:31 Glucose POC Glucose 107 H 269 H OUTPATIENT ANTIDIABETIC REGIMEN: * Metformin 500mg QAM * HbA1c= 6.6% on 05/20/18 ASSESSMENT: 06/20/18 * Patient received total of 43 units insulin yesterday; 25 units of which was basal NPH since patient was on Prednisone 40 mg daily. * Prednisone was discontinued today. Therefore NPH was discontinued today as well. * Novolog parameters were also loosened today since prednisone was d/c'd. BSG at lunch was greater than 269- nurse called to explain that this elevation was due to patient eating a late breakfast today after telling nurse that she was not going to eat it. So breakfast carbs were not covered and the 269 is a post-pradial high. 06/19/18 * Pt remains on prednisone 40mg daily and zosyn. * She received a total of 42 units of insulin yesterday. 30 units of NPH for prednisone induced hyperglycemia, and 12 units of bolus insulin. * Decreased NPH dose this morning as fbs was below goal (76mg/dL). * Post prandial bsg's increased throughout the day yesterday so carb ratio was tightened today. * Will increase bedtime only sliding scale goal range since she appears to be very sensitive to HS correctional insulin. Bsg went from 227mg/dL last evening to 76 mg/dL this morning with 2 units of insulin. 06/18/18 * Ms Hernandez received 56 units of insulin yesterday. (30 units of NPH, 26 units of bolus) * I would expect that we are no longer seeing the effect of the dexamethasone given on 06/16. * Fasting and lunchtime bsg's well below goal today. Loosened CF and CR to prevent hypoglycemia. * Increased goal range for bedtime bsg check to further prevent hypoglycemia. * Pt remains on prednisone 40mg daily so we will continue NPH but at a lower dose (~0.3units/kg) 06/17/18 * 82yo T2DM female with adequate outpatient control per recent A1c. * Pt is maintained on metformin monotherapy as an outpatient. This is being held for admission and utilizing SQ basal bolus insulin regimen for steroid induced hyperglycemia. * Pt received dexamethasone 10mg IV x 1 in ED + prednisone 40mg PO last evening. Pt with significant hyperglycemia yesterday after these doses of steroids. * Pt is currently receiving ~ 100 units of insulin per day with near adequate control. * Expect daily insulin requirement to decrease with each step down in steroid dosing. Pt is only to receive prednsione 40mg daily starting today (no more dexamethasone). Will decrease regimen today to prevent hypoglycemia. * Pt insulin Rx = basal insulin {n/a based on A1c}, bolus insulin {NovoLog}, and steroid hyperglycemia insulin {NPH} * NPH insulin is used to counteract the hyperglycemic effect of prednisone. The rationale for this approach is that the pharmacodynamics profile of NPH, with a peak effect of 4-8hrs and duration of action of 12-16hrs, mirrors the pharmacodynamics of prednisone. NPH should be dosed at the same time that prednisone is given * The dose of NPH given is dependent on the steroid dose given * For doses of prednisone 40mg/day or above NPH dose should be 0.4 units/kg. * Pt Rx NPH 40 units SQ x 1 dose for dxm and then an additional NPH 20 units SQ x 1 dose for prednisone 40mg * NPH dosing above is given in addition to patients basal insulin needs * Typically, patients will also need rapid-acting insulin with meals * Will continue to titrate insulin dosing with each step down in steroid dosing PLAN FOR INPATIENT GLYCEMIC CONTROL: * Holding outpatient oral diabetes medications. * Basal NPH discontinued. * Bolus insulin: loosened. * NovoLog per scale ACHS or Q6hrs while NPO * Goal Range: Low 110 mg/dL - High 140 mg/dL * Goal range for bedtime bsg: Low 140 mg/dL - High 180 mg/dL * Correction Factor: 30 mg/dL/unit * Nutritional / Prandial insulin per carb ratio of 1 unit per 10 grams CHO consumed PLAN FOR DISCHARGE: * HbA1c = 6.6% indicates well controlled diabetes in this 82 y/o patient. Recommend continuing oral Metformin as out-patient provided patient continues to have good renal function.
[2018-06-20] MEDS: ENOXAPARIN INJ 40 MG/0.4 ML SYR SQ SCH (15:35)
[2018-06-20] MEDS: AMOXICILLIN/CLAVULANATE 875 MG TAB PO SCH (17:25)
[2018-06-20] MEDS: MONTELUKAST SODIUM 10 MG TABLET PO SCH (20:50)
[2018-06-20] MEDS: ATORVASTATIN 20 MG TAB PO SCH (20:51)
[2018-06-20] MEDS ORDERED: HydrALAZINE 10 MG TAB PO SCH (21:00)
[2018-06-21] MEDS ORDERED: HydrALAZINE HCL 20 MG/ML VIAL IV STA (04:20)
[2018-06-21 06:07] LABS: Hematocrit (blood only) 35.1 % (37-47); Hemoglobin 11.1 g/dL (12.0-16.0); Mean Corpuscular Hgb Conc 31.6 g/dL (32-36); Mean Corpuscular Volume 90.9 fL (80-100); Mean Platelet Volume 11.2 fL (7.4-10.4); Platelet Count 194 K/uL (130-400); RDW Coefficient of Variation 13.9 % (11.5-14.5); RDW Standard Deviation 45.2 fL (36.4-46.3); Red Blood Count 3.86 M/uL (4.2-5.4)
[2018-06-21 06:33] LABS: BUN Creatinine Ratio 34.5 (10-20); Calcium 8.3 mg/dl (8.5-10.1); Creatinine Clr Calc Pharmacy 48.8 ml/min; Est GFR (African American) 66.4; Est GFR (Non-African American) 57.3; Potassium 3.8 mmol/L (3.5-5.1)
[2018-06-21] MEDS: LEVALBUTEROL HCL 0.63 MG/3 ML NEB NEB SCH ×2 (07:00→14:02)
[2018-06-21] MEDS: INSULIN ASPART 100 UNITS/ML 3 ML PEN SC SCH ×2 (08:08→11:48)
[2018-06-21] MEDS: MIRABEGRON ER 25 MG TAB PO SCH (08:09)
[2018-06-21] MEDS: AZITHROMYCIN 250 MG TAB PO SCH (08:09)
[2018-06-21] MEDS: ASPIRIN 81 MG ECTAB PO SCH (08:09)
[2018-06-21] MEDS: LORATADINE 10 MG TAB PO SCH (08:10)
[2018-06-21] MEDS: METOPROLOL TARTRATE 100 MG TAB PO SCH (08:10)
[2018-06-21] MEDS: DULOXETINE HCL 60 MG CAP PO SCH (08:10)
[2018-06-21] MEDS: GABAPENTIN 300 MG CAP PO SCH (08:10)
[2018-06-21] MEDS: ISOSORBIDE MONO EXTENDED REL 60 MG TABCR PO SCH (08:10)
[2018-06-21] MEDS: AMLODIPINE BESYLATE 5 MG TAB PO SCH (08:10)
[2018-06-21] MEDS: LOSARTAN POTASSIUM 50 MG TAB PO SCH (08:10)
[2018-06-21] MEDS: AMOXICILLIN/CLAVULANATE 875 MG TAB PO SCH (08:10)
[2018-06-21] MEDS: PANTOprazole 40 MG TAB PO SCH (08:11)
[2018-06-21] MEDS: MICONAZOLE NITRATE POWDER 43 GM TOP SCH (08:11)
[2018-06-21] MEDS: DOCUSATE SODIUM 100 MG CAP PO SCH (08:15)
--- NOTE | 2018-06-21 11:27 | Pharmacy Report ---
Pharmacy Glycemic Short Note 2 - Date of Service June 21, 2018 - Glycemic Short BSG Results (Last 24 hours): 06/20/18 06/20/18 06/20/18 11:31 16:20 20:28 Glucose POC Glucose 269 H 139 H 158 H 06/21/18 06/21/18 05:23 07:17 Glucose 126 H POC Glucose 135 H OUTPATIENT ANTIDIABETIC REGIMEN: * Metformin 500mg QAM * HbA1c= 6.6% on 05/20/18 ASSESSMENT: 06/21/18 * Patient received total of 17 units yesterday; down significantly from the day prior since prednisone was discontinued * Lunch BSG = 221 mg/dl; per nurse, pt drank juice prior to blood sugar being obtained * Currently ordered Novolog ACHS with a higher goal range for bedtime bsg: Low 140 mg/dL - High 180 mg/dL * Pt's fasting BSG = 135 mg/dl; will consolidate separate Novolog orders to reflect one goal range of Low 110 mg/dL - High 140 mg/dL 06/20/18 * Patient received total of 43 units insulin yesterday; 25 units of which was basal NPH since patient was on Prednisone 40 mg daily. * Prednisone was discontinued today. Therefore NPH was discontinued today as well. * Novolog parameters were also loosened today since prednisone was d/c'd. BSG at lunch was greater than 269- nurse called to explain that this elevation was due to patient eating a late breakfast today after telling nurse that she was not going to eat it. So breakfast carbs were not covered and the 269 is a post-pradial high. 06/19/18 * Pt remains on prednisone 40mg daily and zosyn. * She received a total of 42 units of insulin yesterday. 30 units of NPH for prednisone induced hyperglycemia, and 12 units of bolus insulin. * Decreased NPH dose this morning as fbs was below goal (76mg/dL). * Post prandial bsg's increased throughout the day yesterday so carb ratio was tightened today. * Will increase bedtime only sliding scale goal range since she appears to be very sensitive to HS correctional insulin. Bsg went from 227mg/dL last evening to 76 mg/dL this morning with 2 units of insulin. 06/18/18 * Ms Hernandez received 56 units of insulin yesterday. (30 units of NPH, 26 units of bolus) * I would expect that we are no longer seeing the effect of the dexamethasone given on 06/16. * Fasting and lunchtime bsg's well below goal today. Loosened CF and CR to prevent hypoglycemia. * Increased goal range for bedtime bsg check to further prevent hypoglycemia. * Pt remains on prednisone 40mg daily so we will continue NPH but at a lower dose (~0.3units/kg) 06/17/18 * 82yo T2DM female with adequate outpatient control per recent A1c. * Pt is maintained on metformin monotherapy as an outpatient. This is being held for admission and utilizing SQ basal bolus insulin regimen for steroid induced hyperglycemia. * Pt received dexamethasone 10mg IV x 1 in ED + prednisone 40mg PO last evening. Pt with significant hyperglycemia yesterday after these doses of steroids. * Pt is currently receiving ~ 100 units of insulin per day with near adequate control. * Expect daily insulin requirement to decrease with each step down in steroid dosing. Pt is only to receive prednsione 40mg daily starting today (no more dexamethasone). Will decrease regimen today to prevent hypoglycemia. * Pt insulin Rx = basal insulin {n/a based on A1c}, bolus insulin {NovoLog}, and steroid hyperglycemia insulin {NPH} * NPH insulin is used to counteract the hyperglycemic effect of prednisone. The rationale for this approach is that the pharmacodynamics profile of NPH, with a peak effect of 4-8hrs and duration of action of 12-16hrs, mirrors the pharmacodynamics of prednisone. NPH should be dosed at the same time that prednisone is given * The dose of NPH given is dependent on the steroid dose given * For doses of prednisone 40mg/day or above NPH dose should be 0.4 units/kg. * Pt Rx NPH 40 units SQ x 1 dose for dxm and then an additional NPH 20 units SQ x 1 dose for prednisone 40mg * NPH dosing above is given in addition to patients basal insulin needs * Typically, patients will also need rapid-acting insulin with meals * Will continue to titrate insulin dosing with each step down in steroid dosing PLAN FOR INPATIENT GLYCEMIC CONTROL: * Holding outpatient oral diabetes medications for now. Discharge recommendations are placed, but if pt remains hospitalized overnight would consider resumption of metformin/discontinuation of carb ratio tomorrow AM * Basal NPH discontinued. * Bolus insulin: * NovoLog per scale ACHS or Q6hrs while NPO * Goal Range: Low 110 mg/dL - High 140 mg/dL * Correction Factor: 30 mg/dL/unit * Nutritional / Prandial insulin per carb ratio of 1 unit per 10 grams CHO consumed PLAN FOR DISCHARGE: * HbA1c = 6.6% indicates well controlled diabetes in this 82 y/o patient. Recommend continuing oral Metformin as out-patient provided patient continues to have good renal function.
--- NOTE | 2018-06-21 14:05 | Discharge Summary ---
Date of Service June 21, 2018 Admission HPI Per Admitting Provider Mrs. Hernandez is an 82 year old female with past medical history of CKD stage 2, chronic lumbar pain, CAD, HTN, HLD, Chronic diastolic heart failure, cerebral vascular disease, carotid stenosis, type II DM, GERD, anxiety, allergic rhinitis, recent bimalleolar fracture who presented from [facility] with hives X 72 hours. Pt. was recently admitted from 05/20-05/29/18 for bimalleolar fracture s/p ORIF on 05/23. She was also diagnosed with pneumonia in the setting of acute encephalopathy and completed a course of Augmentin PO. Pt. completed course of antibiotics -- end date was 06/02/18. She developed hives on Monday evening, 06/13/18. Patient received Solu-medrol 40 mg IV and Benadryl on morning. Pt. was brought to the ER this morning for further evaluation in setting of hives despite conservative treatment. She denies using new bath products, lotions, etc. She was recently started on Trospium for overactive bladder (start date on [facility]/05/[facility]). Allergic reaction is associated with pruritus. She has shortness of breath -- chronic but slightly increased. Received nebulizer treatments followed by use of O2 via NC at [facility]. Has a non-productive cough, denies nasal congestion, sinus congestion/headache, pharyngitis, chest pain, LE edema. Denies N/V, constipation or diarrhea, abd pain, dysuria or hematuria. Her family did report slight confusion but patient is alert and oriented during exam. She received Dexamethasone 10 mg IV, Benadryl 25 mg IV, Ranitidine 50 mg IV in the ER with improvement in allergic reaction. Also received Xopenex treatment and Zosyn/Levaquin due to concern for ongoing PNA on CXR. Will be admitted for further work up/treatment. Principal Diagnosis allergic reaction, hypertensive urgency Discharge Exam Constitutional WD/WN, vitals as above Respiratory normal respiratory effort, lungs clear to auscultation Cardiovascular RRR, no murmur, no edema Gastrointestinal (Abdomen) normal bowel sounds, soft, nontender, no hepatosplenomegaly Musculoskeletal no cyanosis or clubbing, extremities motor strength 5/5 Skin no rashes, warm and dry Neurologic moves all extremities and awake Psychiatric A+Ox3, euthymic affect Discharge Data Allergies Allergy/AdvReac Type Severity Reaction Status Date / Time trospium Allergy Severe hives Verified 06/21/18 14:28 azelastine Allergy Intermediate elevated bp Verified 06/16/18 09:36 mivacurium Allergy Mild RASH Verified 06/16/18 09:36 citalopram Allergy Unknown UNKNOWN Verified 06/16/18 09:36 chlorpheniramine AdvReac Intermediate ELEVATED BP Verified 06/16/18 09:36 Corticosteroids AdvReac Intermediate ELEVATED BP Verified 06/16/18 09:36 (Glucocorticoids) fexofenadine AdvReac Intermediate ELEVATED BP Verified 06/16/18 09:36 fluticasone AdvReac Intermediate ELEVATED BP Verified 06/16/18 09:36 hydrocodone AdvReac Intermediate ELEVATED BP Verified 06/16/18 09:36 magnesium salicylate AdvReac Intermediate ELEVATED BP Verified 06/16/18 09:36 salicylates AdvReac Intermediate ELEVATED BP Verified 06/16/18 09:36 Consultations 06/16/18 09:58 ED Decision to Admit Stat 06/17/18 15:57 Consult Cardiology Routine Ordered Studies 06/16/18 08:27 CT angio chest PE protocol Stat Hospital Course (1) Allergic reaction: - Presented with allergic reaction - possibly related to Trospium, was started on 06/05/[address] [facility]. - Rash resolved - Continue Loratadine 10 mg daily, Ranitidine 150 mg BID as prescribed. - Prednisone 40 mg PO daily for four days - completed 06/19 - Has been evaluated by grinder hand in past; has documented allergies with side effect of hypertension. (2) Chest pain: - Developed chest pain, tachycardia following neb treatment 06/16 ; symptoms now resolved. - EKG showed new ST depression in the anterior leads; repeat EKG following BB dose was negative. - Trop peaked at 0.047 - Echo without WMA, EF 55%, elevated right ventricular pressures - Consulted cardiology - they feel the pain and increase in troponin is secondary to hypertensive urgency. (3) Hypertensive urgency: - BP has been uncontrolled -- is very hypertensive at baseline (refer to last admission). Systolic BPs as high as 215 - Has documented allergy to steroids with HTN noted -- discontinued prednisone 06/19 as allergic reaction has cleared and hopefully will help to bring her pressures back down - Continue Amlodipine 10 mg daily, increased Losartan from 50 mg daily to BID to help decrease morning elevated pressures, and continue Metoprolol 100 mg BID. - Imdur 30 mg PO daily started 06/16 and increased 06/19 to 60 mg daily. - Given Hydralazine 10 mg IV q6hr prn HTN. - Unfortunately Ms. Hernandez is refusing blood pressures in her upper arm and I'm not sure how accurate the current readings are as they are ranging by as much as 100 mmHg. She has not had any further chest pain or symptoms since 06/17. At this point, I'm not sure extending her hospitalization is helping. She is very agitated today about continuing to be in the hospital and would like to be discharged. We discussed the risks of her htn and she says she understands but she has been htn for a very long time. Given that she has not had symptoms in many days and that the blood pressure readings are likely not super accurate, I will discharge her to [facility]. She should have her blood pressure watched very closely and medications titrated per her response. (4) Elevated troponin: - Peaked at 0.047, now trending down. - no further study necessary per cardiology, likely secondary to hypertension and tachycardia (5) Pneumonia: - Was treated with Augmentin PO for PNA during last admission, completed course on 06/02/18. - CT chest in ER showed no PE, patchy tree-in-bud opacities and ground glass opacities in both lungs -- may be related to viral vs. bacterial process. Follow up CT in 3 months is recommended to ensure resolution - Will discontinue Zosyn and provide two more days of Augmentin with azithromycin po - Continue Xopenex scheduled (due to tachycardia) - Procalcitonin level negative; UC growing yeast - Speech evaluation did not find significant swallowing issues, recommends patient sits upright with small bites of moist food when eating. (6) Acute respiratory failure with hypoxia: - intermittently requiring 2L - sats have ranged - Likely related to PNA. She may need O2 after discharge from [facility] as it appears she has required O2 the last few admissions (7) Acute kidney injury: - resolved with IVF (8) CKD (chronic kidney disease) stage 2, GFR 60-89 ml/min: - avoid nephrotoxins where possible (9) Bimalleolar fracture of right ankle: - S/p ORIF on 3/20/19. - Continue Tylenol and Oxycodone prn pain. - Aspirin 81 mg BID for DVT ppx. - PT/OT ordered - right non-weight bearing. - Patient will need to follow up with Dr. Limon's office this week (10) Chronic lumbar pain: - Related to sciatica. - Continue Cymbalta 60 mg daily and Gabapentin 300 mg BID. - Evaluated by pain management as outpatient. (11) Coronary artery disease: - S/p placement of drug eluting stent in the LAD in 2009 following anterior septal wall MO in May 2009. - Continue statin as increased per cardiology, aspirin and beta nel as prescribed. Increased Imdur to 60 mg daily. - Cardiac work up for acute chest pain as noted above. (12) Hyperlipidemia: - Continue statin as prescribed. (13) Chronic diastolic heart failure: - Echo in Nov 2017 showed EF 50-55%, mild LVH. Repeat TTE with elevated right heart pressures and EF 55% - Monitor net I/O's and daily weights - given a dose of lasix 06/19 with some i mprovement of respiratory status and resolution of wheezing - Continue BB as prescribed. 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 - Continue aspirin/statin. (15) Carotid stenosis: - Continue aspirin, statin as prescribed. - Will need f/u doppler in Feb 2019 per cardiology notes. (16) Type 2 diabetes mellitus: - Hold home Metformin. - Hemoglobin A1C was 6.6. - BG elevated in setting of steroids; consulted pharmacy for glycemic management. (17) Osteopenia: - DEXA scan in July 2016. (18) Urinary incontinence: - Continue Myrbetriq as prescribed. - Recently started on Trospium at [facility], now discontinued. (19) GERD (gastroesophageal reflux disease): - Continue PPI daily and Ranitidine 150 mg BID. (20) Anxiety: - Continue Duloxetine as prescribed. (21) Allergic rhinitis: - Continue Singulair as prescribed. (22) Electrolyte abnormality: - Mag level 1.7 -- replaced (23) DVT prophylaxis: - SCDs; Aspirin 81 mg BID Total Time Total Time Spent Total Time Spent (In Minutes): greater 30 minutes Discharge Plan Discharge Items Patient Disposition: Transfer Inpatient Rehab Fac Reason For Visit: ALLERGIC REACTION Discharge Diagnosis: Allergic reaction, hypertensive urgency Discharge Goals: Decrease discomfort and Improve disease control Activity: Per 'Additional Instructions' section Non-emergency contact: Primary Care Provider Call non-emergency contact if: you have any medication questions Follow-up/Referrals: Garcia Lira [Primary Care Provider] - Diet: Carb Consistent or DM2 and Heart Healthy Addtl Provider Instructions: Patient's blood pressures need to be checked frequently and antihypertensive medications titrated. Patient will need to follow up with Dr. Limon concerning her right foot and cast Trospium has been discontinued as possible source of allergic reaction Prescriptions: New losartan 50 mg Tablet 50 mg PO BID 30 Days Qty: 60 RF: 0 isosorbide mononitrate 60 mg Tablet Extended Release 24 Hr 60 mg PO QAM 30 Days Qty: 30 RF: 0 amoxicillin-pot clavulanate 875-125 mg Tablet 1 tab PO BIDM 1 Days Qty: 2 RF: 0 Myrbetriq 25 mg Tablet Extended Release 24 Hr 25 mg PO DAILY 30 Days Qty: 30 RF: 0 Continued atorvastatin [Lipitor] 20 mg tablet 20 mg PO HS RF: 0 amlodipine [Norvasc] 10 mg tablet 10 mg PO QAM RF: 0 docusate sodium [Colace] 100 mg capsule 100 mg PO HS RF: 0 vitamin B complex tablet 1 tab PO QAM RF: 0 albuterol sulfate 90 mcg/actuation HFA aerosol inhaler 2 puffs INH Q6H PRN (Reason: Shortness Of Breath Or Wheezing) RF: 0 metformin [Glucophage] 500 mg tablet 500 mg PO QAM RF: 0 metoprolol tartrate [Lopressor] 100 mg tablet 100 mg PO BID RF: 0 pantoprazole [Protonix] 40 mg tablet,delayed release (DR/EC) 40 mg PO QAM RF: 0 docusate sodium [Colace] 100 mg capsule 200 mg PO QAM RF: 0 gabapentin 300 mg capsule 300 mg PO BID RF: 0 montelukast [Singulair] 10 mg tablet 10 mg PO QPM RF: 0 multivitamin Tablet 1 tab PO QAM RF: 0 Tubersol 5 tub. unit /0.1 mL Solution 5 tb unit INTRADERMAL UD RF: 0 acetaminophen [Tylenol] 325 mg Tablet 650 mg PO Q4H PRN (Reason: Pain (Scale Score 1-3)) RF: 0 ipratropium-albuterol 0.5 mg-3 mg(2.5 mg base)/3 mL Solution For Nebulization 3 ml INHALATION Q4H PRN (Reason: Wheezing) RF: 0 polyethylene glycol 3350 [Miralax] 17 gram Powder In Packet 17 g PO QAM RF: 0 miconazole nitrate 2 % Powder 1 applic TOPICAL BID RF: 0 calcium carbonate-vitamin D3 [Calcium 600 + D(3)] 600 mg(1,500mg) -200 unit Tablet 1 tab PO QAM RF: 0 aspirin 81 mg Tablet,Delayed Release (Dr/Ec) 81 mg PO AMHS RF: 0 acetaminophen [Tylenol Extra Strength] 500 mg Tablet 500 mg PO TIDM RF: 0 methylprednisolone acetate 40 mg/mL Suspension 40 mg IM NOW RF: 0 ranitidine HCl 150 mg Tablet 150 mg PO BID RF: 0 ranitidine HCl 150 mg Tablet 150 mg PO NOW RF: 0 diphenhydramine HCl [Benadryl Allergy] 25 mg Tablet 25 mg PO NOW RF: 0 losartan 25 mg tablet 50 mg PO QAM RF: 0 loratadine 10 mg Tablet 10 mg PO NOW RF: 0 loratadine 10 mg Tablet 10 mg PO QAM RF: 0 oxycodone 5 mg Tablet 5 mg PO Q6H PRN (Reason: Pain (Scale Score 7-10)) RF: 0 melatonin 5 mg Tablet 5 mg PO HS RF: 0 duloxetine [Cymbalta] 60 mg capsule,delayed release(DR/EC) 60 mg PO QAM RF: 0 Discontinued losartan [Cozaar] 25 mg tablet 25 mg PO QAM RF: 0 trospium 20 mg Tablet 20 mg PO QAM RF: 0 Stand-Alone Forms: [facility] Discharge Orders: Discharge Order (Routine); Ordered 06/21/18 Ordered By: Tegan Tiwari Skilled Items Patient informed of condition?: Yes Discharge Level of Care: Acute rehab Communicable Disease: No Discharge Prognosis: Stable Admission Data Admit Date/Time: 06/16/18 10:42 Attending Provider: Richard Thomas Admit Provider: Mushtaq Barney Primary Care Provider: Garcia Lira Other Providers: Trudy Gann ; Brandon Patterson ; Mushtaq Barney ; IRB Approved Study,Ronald Service: Telemetry
[2018-06-21] MEDS: ENOXAPARIN INJ 40 MG/0.4 ML SYR SQ SCH (14:55)
[2018-06-21] MEDS ORDERED: INSULIN ASPART 100 UNITS/ML 3 ML PEN SC SCH (16:30)
== END 2018-06-21 15:40 | DRG 193 ==
LOC: ED 08:11 → SUATTDRO 10:42 → 4E 10:42 → 2S 06-17 07:40
DX: I50.32 Chronic diastolic (congestive) heart failure; I24.8 Other forms of acute ischemic heart disease; I25.10 Atherosclerotic heart disease of native coronary artery without angina pectoris; I12.9 Hypertensive chronic kidney disease with stage 1 through stage 4 chronic kidney disease, or unspecified chronic kidney disease; Z79.84 Long term (current) use of oral hypoglycemic drugs; N18.2 Chronic kidney disease, stage 2 (mild); N17.9 Acute kidney failure, unspecified; M54.40 Lumbago with sciatica, unspecified side; J96.01 Acute respiratory failure with hypoxia; L27.0 Generalized skin eruption due to drugs and medicaments taken internally; F41.9 Anxiety disorder, unspecified; S82.841D Displaced bimalleolar fracture of right lower leg, subsequent encounter for closed fracture with routine healing; G93.40 Encephalopathy, unspecified; J18.9 Pneumonia, unspecified organism; X58.XXXD Exposure to other specified factors, subsequent encounter; Z95.5 Presence of coronary angioplasty implant and graft; I16.0 Hypertensive urgency; N32.81 Overactive bladder; K21.9 Gastro-esophageal reflux disease without esophagitis; I65.29 Occlusion and stenosis of unspecified carotid artery; E11.40 Type 2 diabetes mellitus with diabetic neuropathy, unspecified; M85.80 Other specified disorders of bone density and structure, unspecified site

== ENCOUNTER 2020-10-14 13:38 | Inpatient (IN) ==
[2020-10-14] MEDS ORDERED: ONDANSETRON INJ 2 MG/ML 2 ML VIAL IV STA (13:49)
[2020-10-14] MEDS ORDERED: SODIUM CHLORIDE 0.9% 500 ML IV STA (13:49)
[2020-10-14] MEDS ORDERED: MoRPHine SULFATE 4 MG/ML 1 ML CARP\\VIAL IV STA (13:49)
--- NOTE | 2020-10-14 14:03 | Emergency Department Note ---
Impression & Plan Pneumonia, Chest pain ED Provider Note NAME: ASHLI WRIGHT AGE: 85 SEX: F : 1935 ARRIVES VIA: Ambulance INFORMANT: Patient, ED PROVIDER(S): Brody Howell DO CHIEF COMPLAINT: Chest pain HPI: The patient is an 85-year-old female who presented to the emergency department for an evaluation of chest pain. The patient describes left-sided lower chest pain and left upper quadrant abdominal pain which began approximately 2 weeks ago. She was seen by her family doctor and was diagnosed with constipation. She was told to start taking a laxative. She has been taking laxatives and having multiple bowel movements and the pain is not getting any better. She states the pain began approximately 2 weeks ago when she was bending forward and felt a pop in her chest. She has had worsening shortness of breath and chest pain ever since that time. She does have lower extremity swelling but states this is not new for her. She has been taking all of her outpatient medication as scheduled. She denies having any nausea or vomiting. She denies having any headache. She denies having any black or bloody bowel movements. She has no fever. She does complain of cough which does make the pain worse. ROS: See above HPI for pertinent positives & negatives. A total of 10 systems reviewed and were otherwise negative. PAST MEDICAL HISTORY: See Below PAST SURGICAL HISTORY: See Below FAMILY HISTORY: See Below SOCIAL HISTORY: See Below HOME MEDICATIONS: See Below ALLERGIES: See Below VITALS: See Below PHYSICAL EXAMINATION: GENERAL: The patient is awake alert. The patient is somewhat anxious appearing. EYES: The conjunctivae are clear. The pupils are round and reactive. EARS, NOSE, MOUTH AND THROAT: The nose is without any evidence of any deformity. NECK: The neck is nontender and supple. RESPIRATORY: Splinting respirations were noted. Diminished breath sounds are noted in the left lung field. CARDIOVASCULAR: Regular rate and rhythm noted there no murmurs rubs or gallops normal S1 normal S2. GASTROINTESTINAL: The abdomen is soft and mildly distended. Left upper quadrant tenderness was noted to palpation. There is no guarding rigidity. MUSCULOSKELETAL/EXTREMITIES: There is no evidence of gross deformity full range of motion is noted in the hips and shoulders. SKIN: There is erythema in both lower extremities. Pedal edema was noted bilaterally. Skin was warm and dry. NEUROLOGIC: Patient is awake alert and oriented x3. MEDICAL DECISION MAKING: The patient is an 85-year-old female who presented to the emergency department with left-sided pain. The patient had left-sided chest pain which was reproducible but also left upper quadrant abdominal pain. The patient was having significant shortness of breath. I discussed the patient's laboratory and radiographic studies with her. Because of her symptoms CT of the chest was obtained to evaluate for signs of venous pulmonary embolism. I discussed the patient's condition with her. Ultimately I did discuss her case with the [facility]. They have agreed to evaluate the patient in the emergency department. She was treated with IV antibiotics. She was reevaluated multiple times. Triage Nursing notes reviewed. Prior medical records reviewed Vital Signs: reviewed and remarkable for elevated blood pressure. Differential diagnosis: Cardiac ischemia, aortic dissection, pulmonary embolism, pneumothorax, pneumonia, pericarditis, myocarditis, esophageal rupture, GERD, cholecystitis, pancreatitis, musculoskeletal, as well as other pathologies. ER treatment provided: See below Diagnostics interpreted by me: ECG: EKG was obtained in the emergency department. My interpretation is normal sinus rhythm at 72 bpm. There is no ectopy. There was no acute ST segment abnormalities noted. This was compared to a tracing from June 162018. No significant changes were noted. Cardiac Monitoring: An order was placed for continuous cardiac monitoring. The monitor shows a rate of 83 bpm with sinus rhythm. Laboratory studies: As stated above and show below. Imaging studies: See below Consultation(s): I discussed this case with Rolanda who is on-call for the [facility]. They will evaluate the patient in the emergency department. 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) Arthritis Asthma CAD (coronary artery disease) Carotid stenosis Cerebrovascular disease Chronic diastolic heart failure Chronic obstructive pulmonary disease CKD (chronic kidney disease), stage III Degenerative disc disease Diabetes mellitus, type 2 Diabetic neuropathy Diverticulosis (02/04/11) GERD (gastroesophageal reflux disease) Hyperlipidemia Hypertension Myocardial Infarction OVER 10 YEARS AGO Peripheral edema Pressure sore ON COCCYX (FROM SITTING) Restless leg syndrome Unsteady gait when walking Urinary incontinence Venous insufficiency Surgical History History of anesthesia reaction SLOW TO WAKE UP History of cataract surgery History of colonoscopy History of esophagogastroduodenoscopy (EGD) History of heart artery stent OVER 10 YEARS AGO/1 STENT (FOLLOWS DR. NARAYANAN) History of tooth extraction Hx laparoscopic cholecystectomy Hx of tubal ligation Family History Other Adopted Cancer Social History Smoking Status: Never smoker Second Hand Exposure: No; Hx Alcohol Use: No Hx Substance Use: No Preferred Language: Belarusian Communication Ability: Effective Modeling Agent Required: No Beliefs That Will Affect Care: None marital status: / marital status details: dmitriy Current Living Situation: Alone Current Living Situation Comment: Alone with home health current occupational status: retired Other Information That Helps Us Care for You: No Feels Safe at Home: Yes Safety Concerns: Feels Safe At This Time Assistive Devices: Denture - Upper, Denture - Lower and Oxygen - Continuous Allergies Allergies Allergy/AdvReac Type Severity Reaction Status Date / Time azelastine Allergy Intermediate elevated bp Verified 10/14/20 16:56 trospium Allergy Intermediate hives Verified 10/14/20 16:56 azithromycin Allergy Mild Rash Verified 10/14/20 16:56 citalopram Allergy Unknown UNKNOWN Verified 10/14/20 16:56 chlorpheniramine AdvReac Intermediate ELEVATED BP Verified 10/14/20 16:56 Corticosteroids AdvReac Intermediate ELEVATED BP Verified 10/14/20 16:56 (Glucocorticoids) fexofenadine AdvReac Intermediate ELEVATED BP Verified 10/14/20 16:56 fluticasone AdvReac Intermediate ELEVATED BP Verified 10/14/20 16:56 hydrocodone AdvReac Intermediate ELEVATED BP Verified 10/14/20 16:56 magnesium salicylate AdvReac Intermediate ELEVATED BP Verified 10/14/20 16:56 salicylates AdvReac Intermediate ELEVATED BP Verified 10/14/20 16:56 Home Meds Home Medications Medication Instructions Recorded Confirmed amlodipine 10 mg tablet (Norvasc) 10 mg PO QAM 11/28/17 10/14/20 docusate sodium 100 mg capsule 100 mg PO BID cap 11/28/17 10/14/20 (Colace) gabapentin 300 mg capsule 300 mg PO AMPM 11/28/17 10/14/20 montelukast 10 mg tablet 10 mg PO HS 11/28/17 10/14/20 (Singulair) aspirin 81 mg tablet,delayed 81 mg PO BID 06/16/18 10/14/20 release duloxetine 60 mg capsule,delayed 60 mg PO QAM 06/16/18 10/14/20 release (Cymbalta) furosemide 20 mg tablet 20 mg PO QAM 12/26/18 10/14/20 isosorbide mononitrate 60 mg 60 mg PO QAM 12/26/18 10/14/20 tablet,extended release 24 hr melatonin 5 mg tablet 10 mg PO HS tab 12/26/18 10/14/20 nitroglycerin 0.4 mg sublingual 0.4 mg SL Q5M PRN 12/26/18 10/14/20 tablet tramadol 50 mg tablet 50 mg PO AMPM 12/26/18 10/14/20 acetaminophen 500 mg tablet 500 mg PO BID 09/16/19 10/14/20 cetirizine 10 mg tablet 10 mg PO QDL 09/16/19 10/14/20 fluticasone 250 mcg-salmeterol 50 1 inh INHALATION BID 09/16/19 10/14/20 mcg/dose blistr powdr for inhalation (Advair Diskus) metoprolol tartrate 50 mg tablet 50 mg PO BIDM 09/16/19 10/14/20 atorvastatin 40 mg tablet 40 mg PO HS 12/23/19 10/14/20 buspirone 5 mg tablet 5 mg PO BID PRN 12/23/19 10/14/20 losartan 50 mg tablet 50 mg PO QAM 12/23/19 10/14/20 meclizine 25 mg tablet 25 mg PO BID PRN 12/23/19 10/14/20 [id number] 1 tab PO DAILY 12/23/19 10/14/20 tablet (Cerovite Senior) omeprazole 40 mg capsule,delayed 40 mg PO QAM 12/23/19 10/14/20 release calcium carbonate 500 mg (1,250 1 tab PO QDL 10/14/20 10/14/20 mg)-vitamin D3 200 unit tablet (Oyster Shell Calcium-Vit D3) metformin 500 mg tablet 1,000 mg PO DAILY 10/14/20 10/14/20 oxybutynin chloride 10 mg 10 mg PO DAILY 10/14/20 10/14/20 tablet,extended release 24 hr vitamin B complex-folic acid 0.4 1 tab PO .DAILY AT NOON 10/14/20 10/14/20 mg tablet (Balance B-50 (with folic acid)) Results & Data (ED) Vital Signs Vital Signs - 24 hr 10/14/20 13:42 10/14/20 13:43 10/14/20 13:49 Temperature 37.0 C Temperature Source Oral Pulse Rate 73 Pulse Rate from SpO2 Sensor Pulse Rhythm Regular Pulse Strength Normal Respiratory Rate 19 19 Respiratory Effort / Characteristics Non-Labored Non-Labored Respiratory Depth Normal Normal Respiratory Pattern Regular Regular Blood Pressure 155/63 H Blood Pressure Mean 93 Blood Pressure Position Lying Pulse Oximetry 88 L 97 100 Oxygen Delivery Method Room Air Nasal Cannula Nasal Cannula Oxygen Flow Rate 2 2 Sepsis Recent Fever Within 48 Hours No Sepsis New/Unexplained Change in Mental Status N/A Sepsis Action Taken by Nursing No Action Required 10/14/20 14:00 10/14/20 14:15 10/14/20 14:30 Temperature Temperature Source Pulse Rate 73 75 77 Pulse Rate from SpO2 Sensor 73 75 76 Pulse Rhythm Pulse Strength Respiratory Rate 26 H 18 23 Respiratory Effort / Characteristics Respiratory Depth Respiratory Pattern Blood Pressure 146/81 H 155/64 H 136/52 L Blood Pressure Mean 102 94 80 Blood Pressure Position Pulse Oximetry 100 99 98 Oxygen Delivery Method Nasal Cannula Nasal Cannula Nasal Cannula Oxygen Flow Rate 1 1 1 Sepsis Recent Fever Within 48 Hours Sepsis New/Unexplained Change in Mental Status Sepsis Action Taken by Nursing 10/14/20 14:45 10/14/20 15:00 10/14/20 15:16 Temperature Temperature Source Pulse Rate 75 76 83 Pulse Rate from SpO2 Sensor 75 84 Pulse Rhythm Pulse Strength Respiratory Rate 24 24 Respiratory Effort / Characteristics Respiratory Depth Respiratory Pattern Blood Pressure 145/83 H 144/52 H 77/58 L Blood Pressure Mean 103 82 64 Blood Pressure Position Pulse Oximetry 97 95 96 Oxygen Delivery Method Nasal Cannula Nasal Cannula Nasal Cannula Oxygen Flow Rate 1 1 1 Sepsis Recent Fever Within 48 Hours Sepsis New/Unexplained Change in Mental Status Sepsis Action Taken by Nursing 10/14/20 15:23 10/14/20 15:30 10/14/20 15:57 Temperature Temperature Source Pulse Rate Pulse Rate from SpO2 Sensor 78 75 83 Pulse Rhythm Pulse Strength Respiratory Rate Respiratory Effort / Characteristics Respiratory Depth Respiratory Pattern Blood Pressure 192/75 H 148/85 H Blood Pressure Mean 114 106 Blood Pressure Position Pulse Oximetry 100 100 99 Oxygen Delivery Method Nasal Cannula Nasal Cannula Nasal Cannula Oxygen Flow Rate 1 1 1 Sepsis Recent Fever Within 48 Hours Sepsis New/Unexplained Change in Mental Status Sepsis Action Taken by Nursing 10/14/20 16:30 10/14/20 16:46 10/14/20 17:00 Temperature Temperature Source Pulse Rate Pulse Rate from SpO2 Sensor 76 76 Pulse Rhythm Pulse Strength Respiratory Rate Respiratory Effort / Characteristics Respiratory Depth Respiratory Pattern Blood Pressure 145/109 H 168/74 H 160/80 H Blood Pressure Mean 121 105 106 Blood Pressure Position Pulse Oximetry 99 98 Oxygen Delivery Method Room Air Room Air Room Air Oxygen Flow Rate Sepsis Recent Fever Within 48 Hours Sepsis New/Unexplained Change in Mental Status Sepsis Action Taken by Nursing 10/14/20 17:16 10/14/20 17:30 10/14/20 17:45 Temperature Temperature Source Pulse Rate Pulse Rate from SpO2 Sensor 76 Pulse Rhythm Pulse Strength Respiratory Rate Respiratory Effort / Characteristics Respiratory Depth Respiratory Pattern Blood Pressure 145/50 H 144/111 H 152/83 H Blood Pressure Mean 81 122 106 Blood Pressure Position Pulse Oximetry 99 Oxygen Delivery Method Room Air Oxygen Flow Rate Sepsis Recent Fever Within 48 Hours Sepsis New/Unexplained Change in Mental Status Sepsis Action Taken by Nursing 10/14/20 18:00 Temperature Temperature Source Pulse Rate Pulse Rate from SpO2 Sensor 78 Pulse Rhythm Pulse Strength Respiratory Rate Respiratory Effort / Characteristics Respiratory Depth Respiratory Pattern Blood Pressure 165/55 H Blood Pressure Mean 91 Blood Pressure Position Pulse Oximetry 99 Oxygen Delivery Method Room Air Oxygen Flow Rate Sepsis Recent Fever Within 48 Hours Sepsis New/Unexplained Change in Mental Status Sepsis Action Taken by Longterm Medications Current Medication List: was personally reviewed by me Laboratory Data Attestation: I reviewed the patient's lab results. Result diagrams: 10/15/20 07:08 10/15/20 07:08 Lab Results 10/14/20 Range/Units 14:27 PT 10.5 (9.0-12.0) Seconds INR 1.0 (0.9-1.1) APTT 24.4 (21.0-31.0) Seconds PTT Ratio 0.9 D-Dimer 1230 H* (0-500) ug/L FEU Administered Medications Acetaminophen (Acetaminophen 500 Mg Tab) 500 mg PO BID LEYDI Stop: 11/13/20 21:44 Last Admin: 10/15/20 08:27 Dose: 500 mg Documented by: [id number] Admin: 10/14/20 23:13 Dose: 500 mg Documented by: [id number] Amlodipine Besylate (Amlodipine Besylate 5 Mg Tab) 10 mg PO QAM LEYDI Stop: 11/14/20 08:59 Last Admin: 10/15/20 08:27 Dose: 10 mg Documented by: [id number] Aspirin (Aspirin 81 Mg Ectab) 81 mg PO BID LEYDI Stop: 11/13/20 21:13 Last Admin: 10/15/20 08:29 Dose: 81 mg Documented by: [id number] Admin: 10/14/20 23:06 Dose: 81 mg Documented by: [id number] Atorvastatin Calcium (Atorvastatin 40 Mg Tab) 40 mg PO HS LEYDI Stop: 11/13/20 21:13 Last Admin: 10/14/20 23:06 Dose: 40 mg Documented by: [id number] Docusate Sodium (Docusate Sodium 100 Mg Cap) 100 mg PO BID LEYDI Stop: 11/13/20 21:13 Last Admin: 10/15/20 08:29 Dose: 100 mg Documented by: [id number] Admin: 10/14/20 23:07 Dose: 100 mg Documented by: [id number] Duloxetine HCl (Duloxetine Hcl 60 Mg Cap) 60 mg PO QAM LEYDI Stop: 11/14/20 08:59 Last Admin: 10/15/20 08:27 Dose: 60 mg Documented by: [id number] Fluticasone/Vilanterol (Fluticasone/Vilanterol 100/25mcg 14 Puffs/Inhaler) 1 puffs INH DAILY LEYDI Stop: 11/14/20 08:59 Last Admin: 10/15/20 08:27 Dose: 1 puffs Documented by: [id number] Furosemide (Furosemide 20 Mg Tab) 20 mg PO QAM LEYDI Stop: 11/14/20 08:59 Last Admin: 10/15/20 08:29 Dose: 20 mg Documented by: [id number] Gabapentin (Gabapentin 300 Mg Cap) 300 mg PO BID LEYDI Stop: 11/13/20 21:44 Last Admin: 10/15/20 08:29 Dose: 300 mg Documented by: [id number] Admin: 10/14/20 23:13 Dose: 300 mg Documented by: [id number] Heparin Sodium (Porcine) (Heparin Sod 5,000 Unit/0.5 Ml Vial) 5,000 units SQ Q12 [facility] Stop: 11/13/20 21:13 Last Admin: 10/15/20 08:26 Dose: 5,000 units Documented by: [id number] Admin: 10/14/20 23:21 Dose: 5,000 units Documented by: [id number] Doxycycline Hyclate 100 mg/ (Dextrose) 110 mls @ 50 mls/hr IV BID@0800,1800 [facility] Stop: 10/21/20 22:29 Last Infusion: 10/15/20 10:45 Dose: 0 mls/hr Documented by: [id number] Admin: 10/15/20 08:33 Dose: 50 mls/hr Documented by: [id number] Infusion: 10/15/20 02:20 Dose: 0 mls/hr Documented by: [id number] Admin: 10/14/20 23:52 Dose: 50 mls/hr Documented by: [id number] Piperacillin Sod/Tazobactam (Sod 4.5 gm/ Dextrose) 120 mls @ 30 mls/hr IV Q8H [facility]; Protocol Stop: 10/22/20 03:59 Last Infusion: 10/15/20 08:51 Dose: 0 mls/hr Documented by: [id number] Admin: 10/15/20 04:10 Dose: 30 mls/hr Documented by: [id number] Insulin Aspart (Insulin Aspart 100 Units/Ml 3 Ml Pen) 0 units SC ACHS [facility] Stop: 11/13/20 21:13 Last Admin: 10/15/20 08:35 Dose: 4 units Documented by: [id number] Cosigned by: [id number] Admin: 10/14/20 23:04 Dose: Not Given Documented by: [id number] Cosigned by: [id number] Insulin Glargine (Insulin Glargine Solostar 100 Units/Ml 3 Ml Pen) 0 units SC BID [facility] Stop: 11/13/20 21:13 Last Admin: 10/15/20 08:34 Dose: 4 units Documented by: [id number] Cosigned by: [id number] Admin: 10/14/20 23:04 Dose: 4 units Documented by: [id number] Cosigned by: [id number] Isosorbide Mononitrate (Isosorbide [place] Extended Rel 60 Mg Tabcr) 60 mg PO QAM [facility] Stop: 11/14/20 08:59 Last Admin: 10/15/20 08:27 Dose: 60 mg Documented by: [id number] Losartan Potassium (Losartan Potassium 50 Mg Tab) 50 mg PO QAM [facility] Stop: 11/13/20 21:13 Last Admin: 10/15/20 08:28 Dose: 50 mg Documented by: [id number] Admin: 10/14/20 23:12 Dose: 50 mg Documented by: [id number] Melatonin (Melatonin 3 Mg Tab) 9 mg PO HSZ PRN PRN Reason: Sleep Stop: 11/13/20 21:45 Last Admin: 10/15/20 04:15 Dose: 9 mg Documented by: [id number] Metoprolol Tartrate (Metoprolol Tartrate 50 Mg Tab) 50 mg PO BIDM [facility] Stop: 11/13/20 21:13 Last Admin: 10/15/20 08:28 Dose: 50 mg Documented by: [id number] Admin: 10/14/20 23:12 Dose: 50 mg Documented by: [id number] Montelukast Sodium (Montelukast Sodium 10 Mg Tablet) 10 mg PO HS [facility] Stop: 11/13/20 21:13 Last Admin: 10/14/20 23:13 Dose: 10 mg Documented by: [id number] Oxybutynin Chloride (Oxybutynin Chloride Xl 5 Mg Tabcr) 10 mg PO DAILY [facility] Stop: 11/14/20 08:59 Last Admin: 10/15/20 08:28 Dose: 10 mg Documented by: [id number] Pantoprazole Sodium (Pantoprazole 40 Mg Tab) 40 mg PO QAM [facility] Stop: 11/14/20 08:59 Last Admin: 10/15/20 08:28 Dose: 40 mg Documented by: [id number] Polyethylene Glycol (Polyethylene (Miralax) 17 Gm Pack) 17 gm PO DAILY PRN PRN Reason: Constipation Stop: 11/13/20 21:13 Last Admin: 10/15/20 08:33 Dose: 17 gm Documented by: [id number] Tramadol HCl (Tramadol Hcl 50 Mg Tablet) 50 mg PO BID [facility] Stop: 11/13/20 21:13 Last Admin: 10/15/20 08:33 Dose: 50 mg Documented by: [id number] Admin: 10/14/20 23:16 Dose: 50 mg Documented by: [id number] Discontinued Medications Sodium Chloride (Nss) 500 mls @ 999 mls/hr IV .Q31M STA Stop: 10/14/20 14:19 Last Infusion: 10/14/20 15:11 Dose: 0 mls/hr Documented by: [id number] Admin: 10/14/20 13:58 Dose: 999 mls/hr Documented by: [id number] Cefepime HCl (Maxipime) 2,000 mg in 20 mls @ 5 mls/min IV NOW STA; Protocol Stop: 10/14/20 16:33 Last Admin: 10/14/20 16:40 Dose: 5 mls/min Documented by: [id number] Piperacillin Sod/Tazobactam (Sod 4.5 gm/ Dextrose) 120 mls @ 200 mls/hr IV ONE ONE; Protocol Stop: 10/14/20 22:20 Last Infusion: 10/14/20 23:50 Dose: 0 mls/hr Documented by: [id number] Admin: 10/14/20 23:09 Dose: 200 mls/hr Documented by: [id number] Ioversol (Optiray 320 125ml) 118 ml IV ONCE ONE Stop: 10/14/20 15:43 Last Admin: 10/14/20 15:42 Dose: 118 ml Documented by: [id number] Miscellaneous Information (Consult Pharmacy) 1 ea N/A NOW STA Stop: 10/14/20 18:53 Last Admin: 10/14/20 23:50 Dose: 1 ea Documented by: [id number] Morphine Sulfate (Morphine Sulfate 4 Mg/Ml 1 Ml Carp\Vial) 4 mg IV NOW STA Stop: 10/14/20 13:50 Last Admin: 10/14/20 13:50 Dose: Not Given Documented by: [id number] Ondansetron HCl (Ondansetron Inj 2 Mg/Ml 2 Ml Vial) 4 mg IV NOW STA Stop: 10/14/20 13:50 Last Admin: 10/14/20 13:50 Dose: Not Given Documented by: [id number] Imaging Data Radiologist's Impression: Chest X-Ray 10/14/20 13:49 XR chest 1V portable, XR KUB/Abdomen 1 view HISTORY: 85 years-old Female Chest Pain . Acute chest and abdominal pain COMPARISON: Chest radiograph 06/16/2018 TECHNIQUE: AP view of the chest with KUB radiograph FINDINGS: CHEST: Asymmetric interstitial opacities of the lateral left lung with chronic interstitial coarsening. The cardiac silhouette is enlarged. No pneumothorax or overt pulmonary edema. Blunting of the left costophrenic angle. Degenerative changes of the shoulders and spine. KUB: Nonobstructive bowel gas pattern. Cholecystectomy. Vascular calcifications. Moderate fecal retention. Renal shadows are obscured by bowel gas. No urolith identified. Advanced degenerative changes of the lumbar spine. IMPRESSION: 1. Asymmetric interstitial opacities of the lateral left lung are suspicious for a nonspecific infectious or inflammatory pneumonitis. 2. Probable trace pleural effusion. 3. Nonobstructive bowel gas pattern. 4. Moderate fecal retention. 5. Cardiomegaly. ACT 112: Negative or not required by law. The above report was generated using voice recognition software. It may contain grammatical, syntax or spelling errors. Electronically signed by: Jose Kee M.D. 10/14/2020 2:26 PM KUB X-Ray 10/14/20 13:49 XR chest 1V portable, XR KUB/Abdomen 1 view HISTORY: 85 years-old Female Chest Pain . Acute chest and abdominal pain COMPARISON: Chest radiograph 06/16/2018 TECHNIQUE: AP view of the chest with KUB radiograph FINDINGS: CHEST: Asymmetric interstitial opacities of the lateral left lung with chronic interstitial coarsening. The cardiac silhouette is enlarged. No pneumothorax or overt pulmonary edema. Blunting of the left costophrenic angle. Degenerative changes of the shoulders and spine. KUB: Nonobstructive bowel gas pattern. Cholecystectomy. Vascular calcifications. M oderate fecal retention. Renal shadows are obscured by bowel gas. No urolith identified. Advanced degenerative changes of the lumbar spine. IMPRESSION: 1. Asymmetric interstitial opacities of the lateral left lung are suspicious for a nonspecific infectious or inflammatory pneumonitis. 2. Probable trace pleural effusion. 3. Nonobstructive bowel gas pattern. 4. Moderate fecal retention. 5. Cardiomegaly. ACT 112: Negative or not required by law. The above report was generated using voice recognition software. It may contain grammatical, syntax or spelling errors. Electronically signed by: Jose Kee M.D. 10/14/2020 2:26 PM Abdomen/Pelvis CT 10/14/20 14:43 CT ANGIOGRAM OF THE CHEST; CT SCAN OF THE ABDOMEN AND PELVIS WITH IV CONTRAST CLINICAL HISTORY: Atypical chest pain. Left upper quadrant abdominal pain. COMPARISON STUDY: Chest CT dated 06/16/2018. Abdominal CT dated 01/23/2011. TECHNIQUE: Following the IV administration of 118 of Optiray 320, CT angiogram of the chest is performed from the upper abdomen to the thoracic inlet utilizing the pulmonary embolus protocol. Images are reviewed in the axial, sagittal, coronal planes. 3-D MIPS images are created and assessed. Subsequently, CT scan of the abdomen and pelvis was performed from the lung bases to the proximal femora. Images are reviewed in the axial, sagittal, and coronal planes. IV contrast was administered without complication. A dose lowering technique was utilized adhering to the principles of ALARA. CT DOSE: 1400.20 mGycm FINDINGS: CHEST: Thyroid: Atrophic and heterogeneous. Thoracic aorta: There is atherosclerotic calcification of the thoracic aorta, which is normal in caliber and demonstrates standard 3-vessel arch anatomy. No dissection is seen. Pulmonary vasculature: The pulmonary trunk is normal in caliber. There are no filling defects identified in the main, lobar, or segmental pulmonary arteries to indicate pulmonary embolus. Heart: The heart is top normal in size and without pericardial effusion. The coronary arteries are densely calcified. Lungs and pleural spaces: Evaluation of the lung parenchyma is compromised by motion artifact. The trachea and central airways are clear. There is a small left pleural effusion with associated left basilar consolidation. Numerous foci of tree-in-bud nodularity are seen throughout both lungs. There is irregular nodular consolidation are seen throughout both lungs. Similar findings were seen on the 06/16/2018. The largest nodular foci are seen in the right upper lobe on image 121 measuring 13 mm and in the right lower lobe on image #87 measuring 12 mm. Dense airspace consolidation is seen in the left upper lobe is seen along the major fissure on image #130. Mediastinum: There is no mediastinal lymphadenopathy. Caroline: Clear. Axillae: There is no axillary lymphadenopathy. Bony thorax: The skeletal structures are osteopenic. Degenerative change and hyperkyphosis is noted in the thoracic spine. Advanced arthritic change is seen in the shoulders. No lytic or blastic lesions are identified. There is a healed right-sided rib fracture. ABDOMEN AND PELVIS: Liver: The contrast-enhanced liver is cirrhotic in morphology and heterogeneous in attenuation. There is nodularity of the surface contour as well as hypertrophy of the left lobe and caudate. There is no intrahepatic or ductal dilatation. The hepatic veins and portal veins are patent. A 10 mm hypodensity in the right lobe on image #58 has been present dating back to 2010. This is of doubtful significance and may represent a hemangioma. Gallbladder: Surgically absent noting clips in the gallbladder fossa. Spleen: Normal in size and attenuation. Pancreas: Mildly atrophic and grossly unremarkable. Adrenal glands: Unremarkable. Kidneys: The contrast enhanced kidneys demonstrate cortical atrophy and are without hydronephrosis. The kidneys enhance symmetrically. A 1.9 cm cyst is noted in the right kidney. Abdominal vasculature: There is advanced atherosclerotic calcification and mild ectasia of the abdominal aorta. Stomach and bowel: There is a small hiatal hernia. There is moderate colonic diverticulosis without CT evidence of acute diverticulitis. Fecal retention is noted throughout the colon. No bowel obstruction is seen. Duodenal diverticula are noted. The appendix is well-visualized and normal. Peritoneum: There is no intraperitoneal free air or abdominal ascites. Lymphadenopathy: None. Pelvic viscera: The bladder, uterus, and adnexa are normal as visualized. Skeletal structures: The skeletal structures are osteopenic. There is moderate to advanced lumbosacral spondylosis. No lytic or blastic lesions are seen. IMPRESSION: 1. There is no evidence of pulmonary embolus in the main, lobar, or segmental pulmonary arteries. 2. There is a small left pleural effusion with left basilar consolidation. Dense airspace consolidation is also seen in the left upper lobe, and there also numerous foci of patchy tree-in-bud nodularity and inflammatory appearing nodules. The findings suggest acute pneumonia superimposed on a chronic infectious/inflammatory process. Clinical correlation will be required. 3. Nonemergent/outpatient pulmonology follow-up is recommended, as is a repeat CT scan in 3-4 months time for reassessment of several irregular and likely inflammatory pulmonary lesions. 4. No acute infectious or inflammatory findings are identified in the abdomen or pelvis. 5. Cirrhotic liver morphology. 6. Colonic diverticulosis without CT evidence of acute diverticulitis. 7. Additional findings as above. ACT 112: Negative or not required by law. Electronically signed by: Ravi Schwarz M.D. 10/14/2020 4:17 PM Chest CTA 10/14/20 14:43 CT ANGIOGRAM OF THE CHEST; CT SCAN OF THE ABDOMEN AND PELVIS WITH IV CONTRAST CLINICAL HISTORY: Atypical chest pain. Left upper quadrant abdominal pain. COMPARISON STUDY: Chest CT dated 06/16/2018. Abdominal CT dated 01/23/2011. TECHNIQUE: Following the IV administration of 118 of Optiray 320, CT angiogram of the chest is performed from the upper abdomen to the thoracic inlet utilizing the pulmonary embolus protocol. Images are reviewed in the axial, sagittal, coronal planes. 3-D MIPS images are created and assessed. Subsequently, CT scan of the abdomen and pelvis was performed from the lung bases to the proximal femora. Images are reviewed in the axial, sagittal, and coronal planes. IV contrast was administered without complication. A dose lowering technique was utilized adhering to the principles of ALARA. CT DOSE: 1400.20 mGycm FINDINGS: CHEST: Thyroid: Atrophic and heterogeneous. Thoracic aorta: There is atherosclerotic calcification of the thoracic aorta, which is normal in caliber and demonstrates standard 3-vessel arch anatomy. No dissection is seen. Pulmonary vasculature: The pulmonary trunk is normal in caliber. There are no filling defects identified in the main, lobar, or segmental pulmonary arteries to indicate pulmonary embolus. Heart: The heart is top normal in size and without pericardial effusion. The coronary arteries are densely calcified. Lungs and pleural spaces: Evaluation of the lung parenchyma is compromised by motion artifact. The trachea and central airways are clear. There is a small left pleural effusion with associated left basilar consolidation. Numerous foci of tree-in-bud nodularity are seen throughout both lungs. There is irregular nodular consolidation are seen throughout both lungs. Similar findings were seen on the 06/16/2018. The largest nodular foci are seen in the right upper lobe on image 121 measuring 13 mm and in the right lower lobe on image #87 measuring 12 mm. Dense airspace consolidation is seen in the left upper lobe is seen along the major fissure on image #130. Mediastinum: There is no mediastinal lymphadenopathy. Caroline: Clear. Axillae: There is no axillary lymphadenopathy. Bony thorax: The skeletal structures are osteopenic. Degenerative change and hyperkyphosis is noted in the thoracic spine. Advanced arthritic change is seen in the shoulders. No lytic or blastic lesions are identified. There is a healed right-sided rib fracture. ABDOMEN AND PELVIS: Liver: The contrast-enhanced liver is cirrhotic in morphology and heterogeneous in attenuation. There is nodularity of the surface contour as well as hypertrophy of the left lobe and caudate. There is no intrahepatic or ductal dilatation. The hepatic veins and portal veins are patent. A 10 mm hypodensity in the right lobe on image #58 has been present dating back to 2010. This is of doubtful significance and may represent a hemangioma. Gallbladder: Surgically absent noting clips in the gallbladder fossa. Spleen: Normal in size and attenuation. Pancreas: Mildly atrophic and grossly unremarkable. Adrenal glands: Unremarkable. Kidneys: The contrast enhanced kidneys demonstrate cortical atrophy and are without hydronephrosis. The kidneys enhance symmetrically. A 1.9 cm cyst is noted in the right kidney. Abdominal vasculature: There is advanced atherosclerotic calcification and mild ectasia of the abdominal aorta. Stomach and bowel: There is a small hiatal hernia. There is moderate colonic diverticulosis without CT evidence of acute diverticulitis. Fecal retention is noted throughout the colon. No bowel obstruction is seen. Duodenal diverticula are noted. The appendix is well-visualized and normal. Peritoneum: There is no intraperitoneal free air or abdominal ascites. Lymphadenopathy: None. Pelvic viscera: The bladder, uterus, and adnexa are normal as visualized. Skeletal structures: The skeletal structures are osteopenic. There is moderate to advanced lumbosacral spondylosis. No lytic or blastic lesions are seen. IMPRESSION: 1. There is no evidence of pulmonary embolus in the main, lobar, or segmental pulmonary arteries. 2. There is a small left pleural effusion with left basilar consolidation. Dense airspace consolidation is also seen in the left upper lobe, and there also numerous foci of patchy tree-in-bud nodularity and inflammatory appearing nodules. The findings suggest acute pneumonia superimposed on a chronic infectious/inflammatory process. Clinical correlation will be required. 3. Nonemergent/outpatient pulmonology follow-up is recommended, as is a repeat CT scan in 3-4 months time for reassessment of several irregular and likely inflammatory pulmonary lesions. 4. No acute infectious or inflammatory findings are identified in the abdomen or pelvis. 5. Cirrhotic liver morphology. 6. Colonic diverticulosis without CT evidence of acute diverticulitis. 7. Additional findings as above. ACT 112: Negative or not required by law. Electronically signed by: Ravi Schwarz M.D. 10/14/2020 4:17 PM Discharge Plan Visit Data Chief Complaint: Abdominal Pain Stated Complaint: AB PAIN ED Provider: Brody Howell Discharge Problem: Pneumonia, Chest pain Patient Disposition: Admitted As Inpatient Discharge Instructions Interventions: ED Discharge Assessment Last Done: 10/14/20 20:52 Discharge Problem: Pneumonia Qualifiers: Pneumonia type: due to unspecified organism Laterality: left Lung location: upper lobe of lung Qualified Code(s): J18.9 - Pneumonia, unspecified organism Chest pain Qualifiers: Chest pain type: unspecified Qualified Code(s): R07.9 - Chest pain, unspecified
--- NOTE | 2020-10-14 14:06 | Electrocardiogram Report ---
Test Reason : Blood Pressure : / mmHG Vent. Rate : 072 BPM Atrial Rate : 072 BPM P-R Int : 158 ms QRS Dur : 088 ms QT Int : 402 ms P-R-T Axes : 057 017 057 degrees QTc Int : 440 ms Normal sinus rhythm Normal ECG When compared with ECG of 16-JUN-2018 22:41, Nonspecific T wave abnormality now evident in Anterior leads Confirmed by Boogie Ram ([id number]) on 10/14/2020 2:06:35 PM Referred By: Confirmed By:Jerel Ram
[2020-10-14 14:16] LABS: Basophils # (auto) 0.03 K/uL (0-0.2); Basophils % (auto) 0.2 %; Eosinophils # (auto) 0.38 K/uL (0-0.5); Eosinophils % (auto) 2.9 %; Hematocrit (blood only) 32.9 % (37-47); Hemoglobin 10.1 g/dL (12.0-16.0); Immature Granulocytes # (auto) 0.02 K/uL (0.00-0.02); Immature Granulocytes % (auto) 0.2 %; Lymphocytes # (auto) 2.48 K/uL (1.2-3.4); Lymphocytes % (auto) 18.8 %; Mean Corpuscular Hemoglobin 27.4 pg (25-34); Mean Corpuscular Hgb Conc 30.7 g/dL (32-36); Mean Corpuscular Volume 89.2 fL (80-100); Mean Platelet Volume 11.9 fL (7.4-10.4); Monocytes # (auto) 1.42 K/uL (0.11-0.59); Monocytes % (auto) 10.8 %; Neutrophils # (auto) 8.87 K/uL (1.4-6.5); Neutrophils % (auto) 67.1 %; Platelet Count 195 K/uL (130-400); RDW Coefficient of Variation 15.4 % (11.5-14.5); RDW Standard Deviation 50.7 fL (36.4-46.3); Red Blood Count 3.69 M/uL (4.2-5.4)
--- NOTE | 2020-10-14 14:27 | XRay Report ---
XR chest 1V portable, XR KUB/Abdomen 1 view HISTORY: 85 years-old Female Chest Pain . Acute chest and abdominal pain COMPARISON: Chest radiograph 06/16/2018 TECHNIQUE: AP view of the chest with KUB radiograph FINDINGS: CHEST: Asymmetric interstitial opacities of the lateral left lung with chronic interstitial coarsening. The cardiac silhouette is enlarged. No pneumothorax or overt pulmonary edema. Blunting of the left costop hrenic angle. Degenerative changes of the shoulders and spine. KUB: Nonobstructive bowel gas pattern. Cholecystectomy. Vascular calcifications. Moderate fecal retention. Renal shadows are obscured by bowel gas. No urolith identified. Advanced degenerative changes of the lumbar spine. IMPRESSION: 1. Asymmetric interstitial opacities of the lateral left lung are suspicious for a nonspecific infect ious or inflammatory pneumonitis. 2. Probable trace pleural effusion. 3. Nonobstructive bowel gas pattern. 4. Moderate fecal retention. 5. Cardiomegaly. ACT 112: Negative or not required by law. The above report was generated using voice recognition software. It may contain grammatical, syntax o r spelling errors. Electronically signed by: Jose Kee M.D. 10/14/2020 2:26 PM
[2020-10-14 14:33] LABS: Alanine Aminotransferase 22 U/L (12-78); Albumin Level 3.1 gm/dl (3.4-5.0); Aspartate Aminotransferase 20 U/L (15-37); BUN Creatinine Ratio 21.2 (10-20); Blood Urea Nitrogen 26 mg/dl (7-18); Calcium 9.1 mg/dl (8.5-10.1); Carbon Dioxide 28 mmol/L (21-32); Chloride 105 mmol/L (98-107); Creatinine Clr Calc Pharmacy 36.6 ml/min; Est GFR (African American) 46.5 ml/min; Est GFR (Non-African American) 40.1 ml/min; Glucose 153 mg/dl (70-99); Lipase 118 U/L (73-393); Potassium 4.9 mmol/L (3.5-5.1); Sodium 138 mmol/L (136-145)
[2020-10-14 14:38] LABS: Albumin Globulin Ratio 0.7 (0.9-2); Alkaline Phosphatase 74 U/L (45-117); Bilirubin,Total 0.6 mg/dl (0.2-1); Globulin 4.6 gm/dl (2.5-4.0); Total Protein 7.7 gm/dl (6.4-8.2); Troponin I < 0.015 ng/ml (0-0.045)
[2020-10-14 14:44] LABS: Partial Thromboplastin Ratio 0.9; Partial Thromboplastin Time 24.4 Seconds (21.0-31.0); Prothrombin Time 10.5 Seconds (9.0-12.0)
[2020-10-14 14:53] LABS: D Dimer 1230 ug/L FEU (0-500)
[2020-10-14] MEDS ORDERED: OPTIRAY 320 125ml IV ONE (15:42)
--- NOTE | 2020-10-14 16:18 | CT Scan Report ---
CT ANGIOGRAM OF THE CHEST; CT SCAN OF THE ABDOMEN AND PELVIS WITH IV CONTRAST CLINICAL HISTORY: Atypical chest pain. Left upper quadrant abdominal pain. COMPARISON STUDY: Chest CT dated 06/16/2018. Abdominal CT dated 01/23/2011. TECHNIQUE: Following the IV administration of 118 of Optiray 320, CT angiogram of the chest is perfor med from the upper abdomen to the thoracic inlet utilizing the pulmonary embolus protocol. Images are reviewed in the axial, sagittal, coronal planes. 3-D MIPS images are created and assessed. Subsequen tly, CT scan of the abdomen and pelvis was performed from the lung bases to the proximal femora. Imag es are reviewed in the axial, sagittal, and coronal planes. IV contrast was administered without comp lication. A dose lowering technique was utilized adhering to the principles of ALARA. CT DOSE: 1400.20 mGycm FINDINGS: CHEST: Thyroid: Atrophic and heterogeneous. Thoracic aorta: There is atherosclerotic calcification of the thoracic aorta, which is normal in rashid tam and demonstrates standard 3-vessel arch anatomy. No dissection is seen. Pulmonary vasculature: The pulmonary trunk is normal in caliber. There are no filling defects identif ied in the main, lobar, or segmental pulmonary arteries to indicate pulmonary embolus. Heart: The heart is top normal in size and without pericardial effusion. The coronary arteries are de nsely calcified. Lungs and pleural spaces: Evaluation of the lung parenchyma is compromised by motion artifact. The tr achea and central airways are clear. There is a small left pleural effusion with associated left basi lar consolidation. Numerous foci of tree-in-bud nodularity are seen throughout both lungs. There is i rregular nodular consolidation are seen throughout both lungs. Similar findings were seen on the 06/16. The largest nodular foci are seen in the right upper lobe on image 121 measuring 13 mm and in the right lower lobe on image #87 measuring 12 mm. Dense airspace consolidation is seen in the left u pper lobe is seen along the major fissure on image #130. Mediastinum: There is no mediastinal lymphadenopathy. Caroline: Clear. Axillae: There is no axillary lymphadenopathy. Bony thorax: The skeletal structures are osteopenic. Degenerative change and hyperkyphosis is noted i n the thoracic spine. Advanced arthritic change is seen in the shoulders. No lytic or blastic lesions are identified. There is a healed right-sided rib fracture. ABDOMEN AND PELVIS: Liver: The contrast-enhanced liver is cirrhotic in morphology and heterogeneous in attenuation. There is nodularity of the surface contour as well as hypertrophy of the left lobe and caudate. There is n o intrahepatic or ductal dilatation. The hepatic veins and portal veins are patent. A 10 mm hypodensi ty in the right lobe on image #58 has been present dating back to 2011. This is of doubtful significa nce and may represent a hemangioma. Gallbladder: Surgically absent noting clips in the gallbladder fossa. Spleen: Normal in size and attenuation. Pancreas: Mildly atrophic and grossly unremarkable. Adrenal glands: Unremarkable. Kidneys: The contrast enhanced kidneys demonstrate cortical atrophy and are without hydronephrosis. T he kidneys enhance symmetrically. A 1.9 cm cyst is noted in the right kidney. Abdominal vasculature: There is advanced atherosclerotic calcification and mild ectasia of the abdomi nal aorta. Stomach and bowel: There is a small hiatal hernia. There is moderate colonic diverticulosis without C T evidence of acute diverticulitis. Fecal retention is noted throughout the colon. No bowel obstructi on is seen. Duodenal diverticula are noted. The appendix is well-visualized and normal. Peritoneum: There is no intraperitoneal free air or abdominal ascites. Lymphadenopathy: None. Pelvic viscera: The bladder, uterus, and adnexa are normal as visualized. Skeletal structures: The skeletal structures are osteopenic. There is moderate to advanced lumbosacra l spondylosis. No lytic or blastic lesions are seen. IMPRESSION: 1. There is no evidence of pulmonary embolus in the main, lobar, or segmental pulmonary arteries. 2. There is a small left pleural effusion with left basilar consolidation. Dense airspace consolidati on is also seen in the left upper lobe, and there also numerous foci of patchy tree-in-bud nodularity and inflammatory appearing nodules. The findings suggest acute pneumonia superimposed on a chronic i nfectious/inflammatory process. Clinical correlation will be required. 3. Nonemergent/outpatient pulmonology follow-up is recommended, as is a repeat CT scan in 3-4 months time for reassessment of several irregular and likely inflammatory pulmonary lesions. 4. No acute infectious or inflammatory findings are identified in the abdomen or pelvis. 5. Cirrhotic liver morphology. 6. Colonic diverticulosis without CT evidence of acute diverticulitis. 7. Additional findings as above. ACT 112: Negative or not required by law. Electronically signed by: Ravi Schwarz M.D. 10/14/2020 4:17 PM
[2020-10-14] MEDS ORDERED: CEFEPIME 2,000 MG/20 ML VIAL IV STA (16:30)
--- NOTE | 2020-10-14 18:26 | History & Physical Report ---
Date of Service October 14, 2020 Assessment & Plan (1) Pneumonia: Plan: Patient is 85-year-old female with PMH DM II, chronic diastolic heart failure, COPD, HTN, HLD, CAD s/p MELVI to LAD in 2009, CVA, carotid stenosis, CKD III, anxiety, GERD presented to ER with complaint of chest pain. Patient states been having discomfort around left breast and under her left breast with deep breathing for couple weeks however has been worse the past few days. chronic nonproductive cough. Denies known fevers or chills. In ER patient afebrile, P: 74, R: 18, BP 155/63, 88% on room air up to 99% on 1 L oxygen via nasal cannula. WBC: 13, lactate WNL, procalcitonin: 0.15, D-dimer: 1230, negative troponin, negative COVID-19 PCR CTA chest, CT abdomen pelvis: 1. There is no evidence of pulmonary embolus in the main, lobar, or segmental pulmonary arteries. 2. There is a small left pleural effusion with left basilar consolidation. Dense airspace consolidation is also seen in the left upper lobe, and there also numerous foci of patchy tree-in-bud nodularity and inflammatory appearing nodules. The findings suggest acute pneumonia superimposed on a chronic infectious/inflammatory process. Clinical correlation will be required. 3. Nonemergent/outpatient pulmonology follow-up is recommended, as is a repeat CT scan in 3-4 months time for reassessment of several irregular and likely inflammatory pulmonary lesions. 4. No acute infectious or inflammatory findings are identified in the abdomen or pelvis. 5. Cirrhotic liver morphology. 6. Colonic diverticulosis without CT evidence of acute diverticulitis. Possible aspiration pneumonia In ER given cefepime, 500 mL NSS, Zofran Blood cultures pending Obtain sputum culture, MRSA Zosyn, doxycycline Speech consult Pulmonology consult CBC, BMP in a.m. (2) Diabetes mellitus, type 2: Plan: A1c: 7.0 on 08/18/2020 Hold home oral medicines Basal bolus insulin per protocol (3) Chronic obstructive pulmonary disease: Plan: Continue Advair Albuterol neb as needed (4) CKD (chronic kidney disease), stage III: Plan: Cr: 1.2. Baseline~1.2 Monitor renal functions, avoid nephrotoxic agents when possible (5) Chronic diastolic heart failure: Plan: Continue home Lasix (6) Hypertension: Plan: Continue lisinopril, amlodipine, metoprolol tartrate (7) Hyperlipidemia: Plan: Continue atorvastatin (8) CAD (coronary artery disease): Plan: S/P MELVI in 2009 Continue isosorbide, aspirin, metoprolol tartrate, atorvastatin (9) Cerebrovascular disease: Plan: History CVA Continue aspirin, atorvastatin (10) Anxiety: Plan: Continue Cymbalta DVT Prophylaxis -Heparin SQ DNR/DNI as per discussion with pt Follows with Dr Zaheer Thomas for routine care Pt was seen and care coordinated with Dr Olvera. See addendum History of Present Illness Chief Complaint: Chest pain Primary Care Provider: Dena Thomas MD Patient is 85-year-old female with PMH DM II, chronic diastolic heart failure, COPD, HTN, HLD, CAD s/p MELVI to LAD in 2009, CVA, carotid stenosis, CKD III, anxiety, GERD presented to ER with complaint of chest pain. Patient states been having discomfort around left breast and under her left breast with deep breathing for couple weeks however has been worse the past few days. She denies shortness of breath. Patient reports has chronic nonproductive cough and does not feel this is worse than baseline. Denies any known fevers or chills. She reports chronic bilateral lower extremity swelling and reports this is at baseline. Patient reports has chronic constipation and has been drinking prune juice. Yesterday had BM. She reports she lives in an apartment at [facility], and has caregiver during day. Denies diaphoresis, N/V/D, CEDENO, dizziness, syncope, vision changes, neck pain, orthopnea, palpitations, hemoptysis, sore throat, choking, otalgia, rhinorrhea, abdominal pain, paresthesias, extremity weakness, rashes, urinary symptoms. Allergies Allergy/AdvReac Type Severity Reaction Status Date / Time azelastine Allergy Intermediate elevated bp Verified 10/14/20 16:56 trospium Allergy Intermediate hives Verified 10/14/20 16:56 azithromycin Allergy Mild Rash Verified 10/14/20 16:56 citalopram Allergy Unknown UNKNOWN Verified 10/14/20 16:56 chlorpheniramine AdvReac Intermediate ELEVATED BP Verified 10/14/20 16:56 Corticosteroids AdvReac Intermediate ELEVATED BP Verified 10/14/20 16:56 (Glucocorticoids) fexofenadine AdvReac Intermediate ELEVATED BP Verified 10/14/20 16:56 fluticasone AdvReac Intermediate ELEVATED BP Verified 10/14/20 16:56 hydrocodone AdvReac Intermediate ELEVATED BP Verified 10/14/20 16:56 magnesium salicylate AdvReac Intermediate ELEVATED BP Verified 10/14/20 16:56 salicylates AdvReac Intermediate ELEVATED BP Verified 10/14/20 16:56 Home Medications Medication Instructions Recorded Confirmed Type amlodipine 10 mg tablet (Norvasc) 10 mg PO QAM 11/28/17 10/14/20 History docusate sodium 100 mg capsule 100 mg PO BID cap 11/28/17 10/14/20 History (Colace) gabapentin 300 mg capsule 300 mg PO AMPM 11/28/17 10/14/20 History montelukast 10 mg tablet 10 mg PO HS 11/28/17 10/14/20 History (Singulair) aspirin 81 mg tablet,delayed 81 mg PO BID 06/16/18 10/14/20 History release duloxetine 60 mg capsule,delayed 60 mg PO QAM 06/16/18 10/14/20 History release (Cymbalta) furosemide 20 mg tablet 20 mg PO QAM 12/26/18 10/14/20 History isosorbide mononitrate 60 mg 60 mg PO QAM 12/26/18 10/14/20 History tablet,extended release 24 hr melatonin 5 mg tablet 10 mg PO HS tab 12/26/18 10/14/20 History nitroglycerin 0.4 mg sublingual 0.4 mg SL Q5M PRN 12/26/18 10/14/20 History tablet tramadol 50 mg tablet 50 mg PO AMPM 12/26/18 10/14/20 History acetaminophen 500 mg tablet 500 mg PO BID 09/16/19 10/14/20 History cetirizine 10 mg tablet 10 mg PO QDL 09/16/19 10/14/20 History fluticasone 250 mcg-salmeterol 50 1 inh INHALATION BID 09/16/19 10/14/20 History mcg/dose blistr powdr for inhalation (Advair Diskus) metoprolol tartrate 50 mg tablet 50 mg PO BIDM 09/16/19 10/14/20 History atorvastatin 40 mg tablet 40 mg PO HS 12/23/19 10/14/20 History buspirone 5 mg tablet 5 mg PO BID PRN 12/23/19 10/14/20 History losartan 50 mg tablet 50 mg PO QAM 12/23/19 10/14/20 History meclizine 25 mg tablet 25 mg PO BID PRN 12/23/19 10/14/20 History rvunnnxvbowo-iratzlik-eijbkd 1 tab PO DAILY 12/23/19 10/14/20 History tablet (Cerovite Senior) omeprazole 40 mg capsule,delayed 40 mg PO QAM 12/23/19 10/14/20 History release calcium carbonate 500 mg (1,250 1 tab PO QDL 10/14/20 10/14/20 History mg)-vitamin D3 200 unit tablet (Oyster Shell Calcium-Vit D3) metformin 500 mg tablet 1,000 mg PO DAILY 10/14/20 10/14/20 History oxybutynin chloride 10 mg 10 mg PO DAILY 10/14/20 10/14/20 History tablet,extended release 24 hr vitamin B complex-folic acid 0.4 1 tab PO .DAILY AT NOON 10/14/20 10/14/20 History mg tablet (Balance B-50 (with folic acid)) 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) Arthritis Asthma CAD (coronary artery disease) Carotid stenosis Cerebrovascular disease Chronic diastolic heart failure Chronic obstructive pulmonary disease CKD (chronic kidney disease), stage III Degenerative disc disease Diabetes mellitus, type 2 Diabetic neuropathy Diverticulosis (02/04/11) GERD (gastroesophageal reflux disease) Hyperlipidemia Hypertension Myocardial Infarction OVER 10 YEARS AGO Peripheral edema Pressure sore ON COCCYX (FROM SITTING) Restless leg syndrome Unsteady gait when walking Urinary incontinence Venous insufficiency Surgical History History of anesthesia reaction SLOW TO WAKE UP History of cataract surgery History of colonoscopy History of esophagogastroduodenoscopy (EGD) History of heart artery stent OVER 10 YEARS AGO/1 STENT (FOLLOWS DR. 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 Beliefs That Will Affect Care: None marital status: / marital status details: dmitriy Current Living Situation: Alone Current Living Situation Comment: Alone with home health current occupational status: retired Other Information That Helps Us Care for You: No Feels Safe at Home: Yes Safety Concerns: Feels Safe At This Time Assistive Devices: Denture - Upper, Denture - Lower and Oxygen - Continuous Review of Systems Review of Systems: All systems reviewed & are unremarkable except as noted in HPI & below Physical Exam Physical Exam: General: no distress, obese Head: normocephalic, atraumatic Eyes: PERRL, EOM's intact, conjunctiva non-injected, anicteric ENT: normal inspection external ears, nose, mucous membranes moist Neck: supple, trachea midline Lungs: clear, no respiratory distress, diminished breath sounds left base, no rales noted CV: RRR, trace pretibial edema Abd: normal BS, soft, non-tender Ext: Bilateral lower legs with discoloration, no calf tenderness Neuro: A&O x 3, no focal deficits noted, normal affect Skin: warm, dry Results & Data Results & Data ([facility]) Vital Signs (Past 12 Hours) Vital Signs Temp Pulse Resp BP Pulse Ox 10/14/20 18:00 165/55 H 99 10/14/20 17:45 152/83 H 10/14/20 17:30 144/111 H 10/14/20 17:16 145/50 H 99 10/14/20 17:00 160/80 H 10/14/20 16:46 168/74 H 98 10/14/20 16:30 145/109 H 99 10/14/20 15:57 99 10/14/20 15:30 148/85 H 100 10/14/20 15:23 192/75 H 100 10/14/20 15:16 83 77/58 L 96 10/14/20 15:00 76 24 144/52 H 95 10/14/20 14:45 75 24 145/83 H 97 10/14/20 14:30 77 23 136/52 L 98 10/14/20 14:15 75 18 155/64 H 99 10/14/20 14:00 73 26 H 146/81 H 100 10/14/20 13:49 100 10/14/20 13:43 19 97 10/14/20 13:42 37.0 C 73 19 155/63 H 88 L Laboratory Results Short CBC 10/14/20 Range/Units Unknown WBC 13.20 H (4.8-10.8) K/uL Hgb 10.1 L (12.0-16.0) g/dL Hct 32.9 L (37-47) % Plt Count 195 (130-400) K/uL BMP 10/14/20 Unknown Sodium 138 Potassium 4.9 Chloride 105 Carbon Dioxide 28 BUN 26 H Creatinine 1.24 H Glucose 153 H Calcium 9.1 Cardiac Enzymes 10/14/20 Range/Units Unknown Troponin I < 0.015 (0-0.045) ng/ml Liver Function 10/14/20 Range/Units Unknown Total Bilirubin 0.6 (0.2-1) mg/dl AST 20 (15-37) U/L ALT 22 (12-78) U/L Alkaline Phosphatase 74 (45-117) U/L Albumin 3.1 L (3.4-5.0) gm/dl Diagnostic Findings Chest X-Ray 10/14/20 13:49 XR chest 1V portable, XR KUB/Abdomen 1 view HISTORY: 85 years-old Female Chest Pain . Acute chest and abdominal pain COMPARISON: Chest radiograph 06/16/2018 TECHNIQUE: AP view of the chest with KUB radiograph FINDINGS: CHEST: Asymmetric interstitial opacities of the lateral left lung with chronic interstitial coarsening. The cardiac silhouette is enlarged. No pneumothorax or overt pulmonary edema. Blunting of the left costophrenic angle. Degenerative changes of the shoulders and spine. KUB: Nonobstructive bowel gas pattern. Cholecystectomy. Vascular calcifications. Moderate fecal retention. Renal shadows are obscured by bowel gas. No urolith identified. Advanced degenerative changes of the lumbar spine. IMPRESSION: 1. Asymmetric interstitial opacities of the lateral left lung are suspicious for a nonspecific infectious or inflammatory pneumonitis. 2. Probable trace pleural effusion. 3. Nonobstructive bowel gas pattern. 4. Moderate fecal retention. 5. Cardiomegaly. ACT 112: Negative or not required by law. The above report was generated using voice recognition software. It may contain grammatical, syntax or spelling errors. Electronically signed by: Jose Kee M.D. 10/14/2020 2:26 PM KUB X-Ray 10/14/20 13:49 XR chest 1V portable, XR KUB/Abdomen 1 view HISTORY: 85 years-old Female Chest Pain . Acute chest and abdominal pain COMPARISON: Chest radiograph 06/16/2018 TECHNIQUE: AP view of the chest with KUB radiograph FINDINGS: CHEST: Asymmetric interstitial opacities of the lateral left lung with chronic interstitial coarsening. The cardiac silhouette is enlarged. No pneumothorax or overt pulmonary edema. Blunting of the left costophrenic angle. Degenerative changes of the shoulders and spine. KUB: Nonobstructive bowel gas pattern. Cholecystectomy. Vascular calcifications. Moderate fecal retention. Renal shadows are obscured by bowel gas. No urolith identified. Advanced degenerative changes of the lumbar spine. IMPRESSION: 1. Asymmetric interstitial opacities of the lateral left lung are suspicious for a nonspecific infectious or inflammatory pneumonitis. 2. Probable trace pleural effusion. 3. Nonobstructive bowel gas pattern. 4. Moderate fecal retention. 5. Cardiomegaly. ACT 112: Negative or not required by law. The above report was generated using voice recognition software. It may contain grammatical, syntax or spelling errors. Electronically signed by: Jose Kee M.D. 10/14/2020 2:26 PM Abdomen/Pelvis CT 10/14/20 14:43 CT ANGIOGRAM OF THE CHEST; CT SCAN OF THE ABDOMEN AND PELVIS WITH IV CONTRAST CLINICAL HISTORY: Atypical chest pain. Left upper quadrant abdominal pain. COMPARISON STUDY: Chest CT dated 06/16/2018. Abdominal CT dated 01/23/2011. TECHNIQUE: Following the IV administration of 118 of Optiray 320, CT angiogram of the chest is performed from the upper abdomen to the thoracic inlet utilizing the pulmonary embolus protocol. Images are reviewed in the axial, sagittal, coronal planes. 3-D MIPS images are created and assessed. Subsequently, CT scan of the abdomen and pelvis was performed from the lung bases to the proximal femora. Images are reviewed in the axial, sagittal, and coronal planes. IV contrast was administered without complication. A dose lowering technique was utilized adhering to the principles of ALARA. CT DOSE: 1400.20 mGycm FINDINGS: CHEST: Thyroid: Atrophic and heterogeneous. Thoracic aorta: There is atherosclerotic calcification of the thoracic aorta, which is normal in caliber and demonstrates standard 3-vessel arch anatomy. No dissection is seen. Pulmonary vasculature: The pulmonary trunk is normal in caliber. There are no filling defects identified in the main, lobar, or segmental pulmonary arteries to indicate pulmonary embolus. Heart: The heart is top normal in size and without pericardial effusion. The coronary arteries are densely calcified. Lungs and pleural spaces: Evaluation of the lung parenchyma is compromised by motion artifact. The trachea and central airways are clear. There is a small left pleural effusion with associated left basilar consolidation. Numerous foci of tree-in-bud nodularity are seen throughout both lungs. There is irregular nodular consolidation are seen throughout both lungs. Similar findings were seen on the 06/16/2018. The largest nodular foci are seen in the right upper lobe on image 121 measuring 13 mm and in the right lower lobe on image #87 measuring 12 mm. Dense airspace consolidation is seen in the left upper lobe is seen along the major fissure on image #130. Mediastinum: There is no mediastinal lymphadenopathy. Caroline: Clear. Axillae: There is no axillary lymphadenopathy. Bony thorax: The skeletal structures are osteopenic. Degenerative change and hyperkyphosis is noted in the thoracic spine. Advanced arthritic change is seen in the shoulders. No lytic or blastic lesions are identified. There is a healed right-sided rib fracture. ABDOMEN AND PELVIS: Liver: The contrast-enhanced liver is cirrhotic in morphology and heterogeneous in attenuation. There is nodularity of the surface contour as well as hypertrophy of the left lobe and caudate. There is no intrahepatic or ductal dilatation. The hepatic veins and portal veins are patent. A 10 mm hypodensity in the right lobe on image #58 has been present dating back to 2010. This is of doubtful significance and may represent a hemangioma. Gallbladder: Surgically absent noting clips in the gallbladder fossa. Spleen: Normal in size and attenuation. Pancreas: Mildly atrophic and grossly unremarkable. Adrenal glands: Unremarkable. Kidneys: The contrast enhanced kidneys demonstrate cortical atrophy and are without hydronephrosis. The kidneys enhance symmetrically. A 1.9 cm cyst is noted in the right kidney. Abdominal vasculature: There is advanced atherosclerotic calcification and mild ectasia of the abdominal aorta. Stomach and bowel: There is a small hiatal hernia. There is moderate colonic diverticulosis without CT evidence of acute diverticulitis. Fecal retention is noted throughout the colon. No bowel obstruction is seen. Duodenal diverticula are noted. The appendix is well-visualized and normal. Peritoneum: There is no intraperitoneal free air or abdominal ascites. Lymphadenopathy: None. Pelvic viscera: The bladder, uterus, and adnexa are normal as visualized. Skeletal structures: The skeletal structures are osteopenic. There is moderate to advanced lumbosacral spondylosis. No lytic or blastic lesions are seen. IMPRESSION: 1. There is no evidence of pulmonary embolus in the main, lobar, or segmental pulmonary arteries. 2. There is a small left pleural effusion with left basilar consolidation. Dense airspace consolidation is also seen in the left upper lobe, and there also numerous foci of patchy tree-in-bud nodularity and inflammatory appearing nodules. The findings suggest acute pneumonia superimposed on a chronic infecti ous/inflammatory process. Clinical correlation will be required. 3. Nonemergent/outpatient pulmonology follow-up is recommended, as is a repeat CT scan in 3-4 months time for reassessment of several irregular and likely inflammatory pulmonary lesions. 4. No acute infectious or inflammatory findings are identified in the abdomen or pelvis. 5. Cirrhotic liver morphology. 6. Colonic diverticulosis without CT evidence of acute diverticulitis. 7. Additional findings as above. ACT 112: Negative or not required by law. Electronically signed by: Ravi Schwarz M.D. 10/14/2020 4:17 PM Chest CTA 10/14/20 14:43 CT ANGIOGRAM OF THE CHEST; CT SCAN OF THE ABDOMEN AND PELVIS WITH IV CONTRAST CLINICAL HISTORY: Atypical chest pain. Left upper quadrant abdominal pain. COMPARISON STUDY: Chest CT dated 06/16/2018. Abdominal CT dated 01/23/2011. TECHNIQUE: Following the IV administration of 118 of Optiray 320, CT angiogram of the chest is performed from the upper abdomen to the thoracic inlet utilizing the pulmonary embolus protocol. Images are reviewed in the axial, sagittal, coronal planes. 3-D MIPS images are created and assessed. Subsequently, CT scan of the abdomen and pelvis was performed from the lung bases to the proximal femora. Images are reviewed in the axial, sagittal, and coronal planes. IV contrast was administered without complication. A dose lowering technique was utilized adhering to the principles of ALARA. CT DOSE: 1400.20 mGycm FINDINGS: CHEST: Thyroid: Atrophic and heterogeneous. Thoracic aorta: There is atherosclerotic calcification of the thoracic aorta, which is normal in caliber and demonstrates standard 3-vessel arch anatomy. No dissection is seen. Pulmonary vasculature: The pulmonary trunk is normal in caliber. There are no filling defects identified in the main, lobar, or segmental pulmonary arteries to indicate pulmonary embolus. Heart: The heart is top normal in size and without pericardial effusion. The coronary arteries are densely calcified. Lungs and pleural spaces: Evaluation of the lung parenchyma is compromised by motion artifact. The trachea and central airways are clear. There is a small left pleural effusion with associated left basilar consolidation. Numerous foci of tree-in-bud nodularity are seen throughout both lungs. There is irregular nodular consolidation are seen throughout both lungs. Similar findings were seen on the 06/16/2018. The largest nodular foci are seen in the right upper lobe on image 121 measuring 13 mm and in the right lower lobe on image #87 measuring 12 mm. Dense airspace consolidation is seen in the left upper lobe is seen along the major fissure on image #130. Mediastinum: There is no mediastinal lymphadenopathy. Caroline: Clear. Axillae: There is no axillary lymphadenopathy. Bony thorax: The skeletal structures are osteopenic. Degenerative change and hyperkyphosis is noted in the thoracic spine. Advanced arthritic change is seen in the shoulders. No lytic or blastic lesions are identified. There is a healed right-sided rib fracture. ABDOMEN AND PELVIS: Liver: The contrast-enhanced liver is cirrhotic in morphology and heterogeneous in attenuation. There is nodularity of the surface contour as well as hypertrophy of the left lobe and caudate. There is no intrahepatic or ductal dilatation. The hepatic veins and portal veins are patent. A 10 mm hypodensity in the right lobe on image #58 has been present dating back to 2010. This is of doubtful significance and may represent a hemangioma. Gallbladder: Surgically absent noting clips in the gallbladder fossa. Spleen: Normal in size and attenuation. Pancreas: Mildly atrophic and grossly unremarkable. Adrenal glands: Unremarkable. Kidneys: The contrast enhanced kidneys demonstrate cortical atrophy and are without hydronephrosis. The kidneys enhance symmetrically. A 1.9 cm cyst is noted in the right kidney. Abdominal vasculature: There is advanced atherosclerotic calcification and mild ectasia of the abdominal aorta. Stomach and bowel: There is a small hiatal hernia. There is moderate colonic diverticulosis without CT evidence of acute diverticulitis. Fecal retention is noted throughout the colon. No bowel obstruction is seen. Duodenal diverticula are noted. The appendix is well-visualized and normal. Peritoneum: There is no intraperitoneal free air or abdominal ascites. Lymphadenopathy: None. Pelvic viscera: The bladder, uterus, and adnexa are normal as visualized. Skeletal structures: The skeletal structures are osteopenic. There is moderate to advanced lumbosacral spondylosis. No lytic or blastic lesions are seen. IMPRESSION: 1. There is no evidence of pulmonary embolus in the main, lobar, or segmental pulmonary arteries. 2. There is a small left pleural effusion with left basilar consolidation. Dense airspace consolidation is also seen in the left upper lobe, and there also numerous foci of patchy tree-in-bud nodularity and inflammatory appearing nodules. The findings suggest acute pneumonia superimposed on a chronic infectious/inflammatory process. Clinical correlation will be required. 3. Nonemergent/outpatient pulmonology follow-up is recommended, as is a repeat CT scan in 3-4 months time for reassessment of several irregular and likely inflammatory pulmonary lesions. 4. No acute infectious or inflammatory findings are identified in the abdomen or pelvis. 5. Cirrhotic liver morphology. 6. Colonic diverticulosis without CT evidence of acute diverticulitis. 7. Additional findings as above. ACT 112: Negative or not required by law. Electronically signed by: Ravi Schwarz M.D. 10/14/2020 4:17 PM Code Status & VTE Plan VTE Prophylaxis Plan VTE Prophylaxis will be ordered: Yes Supervising Physician Co-Signing Physician Notes I saw this patient with the physician assistant operator, I participated in the history, physical, review of systems, and physical exam. I reviewed the medications with the patient and the physician assistant operator and helped reconcile the medications. I helped take a detailed family and social history as well. I formulated the assessment and plan personally with the physician assistant operator and went over it with the patient. Physical Exam Gen-AAO x 3, NAD, Afebrile Head-NCAT, EOMI, PERRLA, Anicteric Sclera, No Posterior Pharyngeal Erythema Neck-Supple, No JVD, No Thyromegaly, No Masses, No LAD, No Bruits Lungs-Diminished bilat L>R, No Rales, No Rhonchi, No Wheezing, No Crepitus Chest-No S4, +S1, +S2, No S3, No Murmurs, No Rubs, No Gallops, No Ectopy Abdomen-Soft, Bowel Sounds Present, Non Tender, Non Distended, No Hepatomegaly, No Splenomegaly, No Palpable Masses, No Rebound, No Rigidity, No Guarding Musculoskeletal-Full Range of Motion Bilaterally, No CVAT Extremities-No Cyanosis, No Clubbing, No Edema Nuero-Cranial Nerves II-XII grossly intact, Motor WNL, DTRs WNL, Strength WNL, Non Focal Psych-Normal Mood (1) Pneumonia Laterality: left Lung location: upper lobe of lung Pneumonia type: due to unspecified organism Qualified Code(s): J18.9 - Pneumonia, unspecified organism
[2020-10-14] MEDS ORDERED: CONSULT PHARMACY STA (18:52)
[2020-10-14] MEDS ORDERED: POLYETHYLENE (MIRALAX) 17 GM PACK PO PRN (21:14)
[2020-10-14] MEDS ORDERED: PIPERACILL/TAZOBAC CONSULT ACTIVE PRN (21:14)
[2020-10-14] MEDS ORDERED: NITROGLYCERIN SL 0.4 MG/TAB TAB SL PRN (21:14)
[2020-10-14] MEDS ORDERED: ACETAMINOPHEN 325 MG TAB PO PRN (21:14)
[2020-10-14] MEDS ORDERED: ALBUTEROL 0.083% NEBU SOLN 3 ML VIAL NEB PRN (21:14)
[2020-10-14] MEDS ORDERED: DEXTROSE 50% 50 ML SYRINGE IV PRN (21:14)
[2020-10-14] MEDS ORDERED: GLUCOSE 10 TABS/TUBE PO PRN (21:14)
[2020-10-14] MEDS ORDERED: busPIRone 5 MG TAB PO PRN (21:14)
[2020-10-14] MEDS ORDERED: GLUCOSE 40% GEL 15 GM TUBE PO PRN (21:14)
[2020-10-14] MEDS ORDERED: GLUCAGON FOR INJ 1 MG VIAL SQ PRN (21:14)
[2020-10-14] MEDS ORDERED: CARBOHYDRATES FOR HYPOGLYCEMIA PO PRN (21:14)
[2020-10-14] MEDS ORDERED: MICONAZOLE NITRATE POWDER 43 GM EXT PRN (21:22)
[2020-10-14] MEDS ORDERED: PIPERACILLIN/TAZOBACTAM 4.5 GM in DEXTROSE 5% 100 ML IV ONE (21:45)
[2020-10-14 22:59] LABS: Appearance Urine Clear (Clear); Bilirubin Urine Negative (Negative); Blood Urine Negative (Negative); Color Urine Yellow; Glucose Urine UA Negative (Negative); Ketones Urine Negative (Negative); Leukocyte Esterase Urine Negative (Negative); Nitrite Urine Negative (Negative); Protein Urine Negative (Negative); Specific Gravity Urine 1.036 (1.000-1.030); Urobilinogen Urine Negative (Negative)
[2020-10-14] MEDS: INSULIN GLARGINE SOLOSTAR 100 UNITS/ML 3 ML PEN SC SCH (23:04)
[2020-10-14] MEDS: INSULIN ASPART 100 UNITS/ML 3 ML PEN SC SCH (23:04)
[2020-10-14] MEDS: ATORVASTATIN 40 MG TAB PO SCH (23:06)
[2020-10-14] MEDS: ASPIRIN 81 MG ECTAB PO SCH (23:06)
[2020-10-14] MEDS: DOCUSATE SODIUM 100 MG CAP PO SCH (23:07)
[2020-10-14] MEDS: LOSARTAN POTASSIUM 50 MG TAB PO SCH (23:12)
[2020-10-14] MEDS: METOPROLOL TARTRATE 50 MG TAB PO SCH (23:12)
[2020-10-14] MEDS: ACETAMINOPHEN 500 MG TAB PO SCH (23:13)
[2020-10-14] MEDS: MONTELUKAST SODIUM 10 MG TABLET PO SCH (23:13)
[2020-10-14] MEDS: GABAPENTIN 300 MG CAP PO SCH (23:13)
[2020-10-14] MEDS: traMADol HCL 50 MG TABLET PO SCH (23:16)
[2020-10-14] MEDS: HEPARIN SOD 5,000 UNIT/0.5 ML VIAL SQ SCH (23:21)
[2020-10-14] MEDS: DOXYCYCLINE HYCLATE 100 MG in DEXTROSE 5% 100 ML IV SCH (23:52)
[2020-10-15] MEDS: PIPERACILLIN/TAZOBACTAM 4.5 GM in DEXTROSE 5% 100 ML IV SCH ×2 (04:10→11:38)
[2020-10-15] MEDS: MELATONIN 3 MG TAB PO PRN (04:15)
[2020-10-15 07:29] LABS: Hemoglobin 9.3 g/dL (12.0-16.0); Mean Corpuscular Hemoglobin 27.5 pg (25-34); Mean Corpuscular Volume 88.8 fL (80-100); Mean Platelet Volume 10.8 fL (7.4-10.4); Platelet Count 152 K/uL (130-400); RDW Coefficient of Variation 15.4 % (11.5-14.5); RDW Standard Deviation 49.7 fL (36.4-46.3); Red Blood Count 3.38 M/uL (4.2-5.4); White Blood Count 10.21 K/uL (4.8-10.8)
[2020-10-15 07:45] LABS: BUN Creatinine Ratio 18.8 (10-20); Calcium 8.7 mg/dl (8.5-10.1); Creatinine Clr Calc Pharmacy 39.6 ml/min; Est GFR (African American) 52.1 ml/min; Est GFR (Non-African American) 44.9 ml/min; Potassium 4.2 mmol/L (3.5-5.1)
[2020-10-15] MEDS: HEPARIN SOD 5,000 UNIT/0.5 ML VIAL SQ SCH ×2 (08:26→21:08)
[2020-10-15] MEDS: DULoxetine HCL 60 MG CAP PO SCH (08:27)
[2020-10-15] MEDS: ACETAMINOPHEN 500 MG TAB PO SCH ×2 (08:27→21:16)
[2020-10-15] MEDS: FLUTICASONE/VILANTEROL 100/25MCG 14 PUFFS/INHALER INH SCH (08:27)
[2020-10-15] MEDS: amLODIPine BESYLATE 5 MG TAB PO SCH (08:27)
[2020-10-15] MEDS: ISOSORBIDE MONO EXTENDED REL 60 MG TABCR PO SCH (08:27)
[2020-10-15] MEDS: LOSARTAN POTASSIUM 50 MG TAB PO SCH (08:28)
[2020-10-15] MEDS: METOPROLOL TARTRATE 50 MG TAB PO SCH ×2 (08:28→17:50)
[2020-10-15] MEDS: OXYBUTYNIN CHLORIDE XL 5 MG TABCR PO SCH (08:28)
[2020-10-15] MEDS: PANTOprazole 40 MG TAB PO SCH (08:28)
[2020-10-15] MEDS: FUROSEMIDE 20 MG TAB PO SCH (08:29)
[2020-10-15] MEDS: ASPIRIN 81 MG ECTAB PO SCH ×2 (08:29→21:05)
[2020-10-15] MEDS: GABAPENTIN 300 MG CAP PO SCH ×2 (08:29→21:07)
[2020-10-15] MEDS: DOCUSATE SODIUM 100 MG CAP PO SCH ×2 (08:29→21:16)
[2020-10-15] MEDS: DOXYCYCLINE HYCLATE 100 MG in DEXTROSE 5% 100 ML IV SCH (08:33)
[2020-10-15] MEDS: traMADol HCL 50 MG TABLET PO SCH ×2 (08:33→21:16)
[2020-10-15] MEDS: INSULIN GLARGINE SOLOSTAR 100 UNITS/ML 3 ML PEN SC SCH ×2 (08:34→21:11)
[2020-10-15] MEDS: INSULIN ASPART 100 UNITS/ML 3 ML PEN SC SCH ×4 (08:35→21:12)
[2020-10-15] MEDS: CETIRIZINE HCL 10 MG TABLET PO SCH (11:40)
--- NOTE | 2020-10-15 11:50 | Pulmonary Consultation ---
Date of Consultation October 15, 2020 Assessment & Plan (1) Pneumonia: Laterality: left Lung location: upper lobe of lung Pneumonia type: due to unspecified organism Qualified Code(s): J18.9 - Pneumonia, unspecified organism (2) Chest pain: Chest pain type: unspecified Qualified Code(s): R07.9 - Chest pain, unspecified (3) Abnormal CT scan of lung: (4) Pleural effusion: (5) Morbid obesity with BMI of 45.0-49.9, adult: Impression: 85-year-old female admitted with chest discomfort found to have some patchy airspace opacity with small pleural effusion. The effusion is too small to sample currently but could be causing some of the discomfort on the left side. Her procalcitonin was negative but white count was elevated on presentation. The differential is broad and would include infectious and inflammatory as well as malignant etiologies. At this point time would favor continued antibiotics and radiographic follow-up. Recommendations: 1. Multifocal airspace opacities: Continue antibiotics. The patient is currently receiving IV doxycycline and IV Zosyn. She is not at risk for pseudomonal coverage. We will de-escalate antibiotics to oral doxycycline and cefuroxime which should be adequate. Anticipate 5 to 7 days of antimicrobial coverage. Could consider a follow-up chest x-ray in 2 to 3 weeks to ensure the effusion is not reaccumulating. See comments below. She should have a follow- up CT scan in 3 months with her primary care provider to ensure the airspace opacities have resolved. 2. Pleural effusion: Too small to sample currently. Follow-up chest x-ray in 2 weeks is indicated to ensure the effusion is not increasing in size. 3. Chest discomfort: Probably secondary to pleural inflammation associated with the airspace opacity. Trial of tramadol may be beneficial. 4. Hypoxemia: Secondary to the above. Wean oxygen as tolerated. Recommend the patient be assessed for supplemental oxygen prior to discharge. We will see how she does clinically but anticipate that she may be able to be dismissed from the hospital in short order and follow-up with her primary care provider as an outpatient. History of Present Illness Attending Physician: Trina Turner MD History of Present Illness Asked by hospitalist to assist in evaluation of this patient admitted with an abnormal CT scan and questionable pneumonia. History is obtained from review electronic medical record as well as interview the patient. Patient is an 85-year-old female with a complicated medical history including chronic diastolic heart failure, obesity, diabetes, hypertension hyperlipidemia and coronary disease as well as chronic kidney disease. She was brought to the emergency room complaining of left-sided chest discomfort. Said been present apparently for a few weeks and became acutely worse. She was found to be hypoxemic but was not complaining of any significant shortness of breath. She denies fevers chills night sweats or other constitutional symptoms. She does have some difficulty swallowing and occasionally will cough after eating or drinking. She is not had overt constitutional symptoms such as fevers chills or night sweats. In the emergency room the patient underwent a CT scan of the chest which showed no evidence of PE but did show a few patchy areas of airspace opacity. The patient was initiated on IV antibiotics and admitted to the hospitalist service. This morning the patient states that she feels somewhat better. She continues to deny any specific cough or sputum production. She continues to have some discomfort in the left anterior chest. Allergies Allergy/AdvReac Type Severity Reaction Status Date / Time azelastine Allergy Intermediate elevated bp Verified 10/14/20 16:56 trospium Allergy Intermediate hives Verified 10/14/20 16:56 azithromycin Allergy Mild Rash Verified 10/14/20 16:56 citalopram Allergy Unknown UNKNOWN Verified 10/14/20 16:56 chlorpheniramine AdvReac Intermediate ELEVATED BP Verified 10/14/20 16:56 Corticosteroids AdvReac Intermediate ELEVATED BP Verified 10/14/20 16:56 (Glucocorticoids) fexofenadine AdvReac Intermediate ELEVATED BP Verified 10/14/20 16:56 fluticasone AdvReac Intermediate ELEVATED BP Verified 10/14/20 16:56 hydrocodone AdvReac Intermediate ELEVATED BP Verified 10/14/20 16:56 magnesium salicylate AdvReac Intermediate ELEVATED BP Verified 10/14/20 16:56 salicylates AdvReac Intermediate ELEVATED BP Verified 10/14/20 16:56 Home Medications Medication Instructions Recorded Confirmed Type amlodipine 10 mg tablet (Norvasc) 10 mg PO QAM 11/28/17 10/14/20 History docusate sodium 100 mg capsule 100 mg PO BID cap 11/28/17 10/14/20 History (Colace) gabapentin 300 mg capsule 300 mg PO AMPM 11/28/17 10/14/20 History montelukast 10 mg tablet 10 mg PO HS 11/28/17 10/14/20 History (Singulair) aspirin 81 mg tablet,delayed 81 mg PO BID 06/16/18 10/14/20 History release duloxetine 60 mg capsule,delayed 60 mg PO QAM 06/16/18 10/14/20 History release (Cymbalta) furosemide 20 mg tablet 20 mg PO QAM 12/26/18 10/14/20 History isosorbide mononitrate 60 mg 60 mg PO QAM 12/26/18 10/14/20 History tablet,extended release 24 hr melatonin 5 mg tablet 10 mg PO HS tab 12/26/18 10/14/20 History nitroglycerin 0.4 mg sublingual 0.4 mg SL Q5M PRN 12/26/18 10/14/20 History tablet tramadol 50 mg tablet 50 mg PO AMPM 12/26/18 10/14/20 History acetaminophen 500 mg tablet 500 mg PO BID 09/16/19 10/14/20 History cetirizine 10 mg tablet 10 mg PO QDL 09/16/19 10/14/20 History fluticasone 250 mcg-salmeterol 50 1 inh INHALATION BID 09/16/19 10/14/20 History mcg/dose blistr powdr for inhalation (Advair Diskus) metoprolol tartrate 50 mg tablet 50 mg PO BIDM 09/16/19 10/14/20 History atorvastatin 40 mg tablet 40 mg PO HS 12/23/19 10/14/20 History buspirone 5 mg tablet 5 mg PO BID PRN 12/23/19 10/14/20 History losartan 50 mg tablet 50 mg PO QAM 12/23/19 10/14/20 History meclizine 25 mg tablet 25 mg PO BID PRN 12/23/19 10/14/20 History zjfkckbjmygu-axyapkhn-ppwozi 1 tab PO DAILY 12/23/19 10/14/20 History tablet (Cerovite Senior) omeprazole 40 mg capsule,delayed 40 mg PO QAM 12/23/19 10/14/20 History release calcium carbonate 500 mg (1,250 1 tab PO QDL 10/14/20 10/14/20 History mg)-vitamin D3 200 unit tablet (Oyster Shell Calcium-Vit D3) metformin 500 mg tablet 1,000 mg PO DAILY 10/14/20 10/14/20 History oxybutynin chloride 10 mg 10 mg PO DAILY 10/14/20 10/14/20 History tablet,extended release 24 hr vitamin B complex-folic acid 0.4 1 tab PO .DAILY AT NOON 10/14/20 10/14/20 History mg tablet (Balance B-50 (with folic acid)) Patient History Medical History (Updated 10/15/20 @ 11:46 by Omar Katz MD) Anxiety Arteriosclerotic coronary artery disease (02/04/11) Arthritis Asthma CAD (coronary artery disease) Carotid stenosis Cerebrovascular disease Chronic diastolic heart failure Chronic obstructive pulmonary disease CKD (chronic kidney disease), stage III Degenerative disc disease Diabetes mellitus, type 2 Diabetic neuropathy Diverticulosis (02/04/11) GERD (gastroesophageal reflux disease) Hyperlipidemia Hypertension Myocardial Infarction OVER 10 YEARS AGO Peripheral edema Pressure sore ON COCCYX (FROM SITTING) Restless leg syndrome Unsteady gait when walking Urinary incontinence Venous insufficiency Surgical History History of anesthesia reaction SLOW TO WAKE UP History of cataract surgery History of colonoscopy History of esophagogastroduodenoscopy (EGD) History of heart artery stent OVER 10 YEARS AGO/1 STENT (FOLLOWS DR. 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 I have no additions or deletions Physical Exam Constitutional: WD/WN, vitals as above Neck: trachea midline, no thyromegaly Respiratory: normal respiratory effort, lungs clear to auscultation Cardiovascular: Rate/Rhythm: regular rate Heart Sounds: normal S1 and normal S2; no murmur Extremities: + edema Gastrointestinal (Abdomen): normal bowel sounds, soft, nontender, no hepatosplenomegaly Musculoskeletal: Extremities: extremities normal to inspection Skin: no rashes, warm and dry Neurologic: Nonfocal exam Lymphatic: no cervical lymphadenopathy Results & Data Results & Data ([facility]) Vital Signs (Past 12 Hours) Vital Signs Temp Pulse Pulse Resp BP Pulse Ox 10/15/20 10:37 66 10/15/20 07:00 37.1 C 69 20 138/52 L 95 10/15/20 03:14 37.7 C H 67 18 146/53 H 94 Laboratory Results 10/15/20 07:08 10/15/20 07:08 Of note her white count on presentation was elevated at 13,000 without a significant left shift. Elevated at 1230 Lactate 0.9 Troponin undetectable Procalcitonin 0.15 D-dimer Diagnostic Findings CT angiogram 10/14/[address] ANGIOGRAM OF THE CHEST; CT SCAN OF THE ABDOMEN AND PELVIS WITH IV CONTRAST CLINICAL HISTORY: Atypical chest pain. Left upper quadrant abdominal pain. COMPARISON STUDY: Chest CT dated 06/16/2018. Abdominal CT dated 01/23/2011. TECHNIQUE: Following the IV administration of 118 of Optiray 320, CT angiogram of the chest is performed from the upper abdomen to the thoracic inlet utilizing the pulmonary embolus protocol. Images are reviewed in the axial, sagittal, coronal planes. 3-D MIPS images are created and assessed. Subsequently, CT scan of the abdomen and pelvis was performed from the lung bases to the proximal femora. Images are reviewed in the axial, sagittal, and coronal planes. IV contrast was administered without complication. A dose lowering technique was utilized adhering to the principles of ALARA. CT DOSE: 1400.20 mGycm FINDINGS: CHEST: Thyroid: Atrophic and heterogeneous. Thoracic aorta: There is atherosclerotic calcification of the thoracic aorta, which is normal in caliber and demonstrates standard 3-vessel arch anatomy. No dissection is seen. Pulmonary vasculature: The pulmonary trunk is normal in caliber. There are no filling defects identified in the main, lobar, or segmental pulmonary arteries to indicate pulmonary embolus. Heart: The heart is top normal in size and without pericardial effusion. The coronary arteries are densely calcified. Lungs and pleural spaces: Evaluation of the lung parenchyma is compromised by motion artifact. The trachea and central airways are clear. There is a small left pleural effusion with associated left basilar consolidation. Numerous foci of tree-in-bud nodularity are seen throughout both lungs. There is irregular nod ular consolidation are seen throughout both lungs. Similar findings were seen on the 06/16/2018. The largest nodular foci are seen in the right upper lobe on image 121 measuring 13 mm and in the right lower lobe on image #87 measuring 12 mm. Dense airspace consolidation is seen in the left upper lobe is seen along the major fissure on image #130. Mediastinum: There is no mediastinal lymphadenopathy. Caroline: Clear. Axillae: There is no axillary lymphadenopathy. Bony thorax: The skeletal structures are osteopenic. Degenerative change and hyperkyphosis is noted in the thoracic spine. Advanced arthritic change is seen in the shoulders. No lytic or blastic lesions are identified. There is a healed right-sided rib fracture. ABDOMEN AND PELVIS: Liver: The contrast-enhanced liver is cirrhotic in morphology and heterogeneous in attenuation. There is nodularity of the surface contour as well as hypertrophy of the left lobe and caudate. There is no intrahepatic or ductal dilatation. The hepatic veins and portal veins are patent. A 10 mm hypodensity in the right lobe on image #58 has been present dating back to 2011. This is of doubtful significance and may represent a hemangioma. Gallbladder: Surgically absent noting clips in the gallbladder fossa. Spleen: Normal in size and attenuation. Pancreas: Mildly atrophic and grossly unremarkable. Adrenal glands: Unremarkable. Kidneys: The contrast enhanced kidneys demonstrate cortical atrophy and are without hydronephrosis. The kidneys enhance symmetrically. A 1.9 cm cyst is noted in the right kidney. Abdominal vasculature: There is advanced atherosclerotic calcification and mild ectasia of the abdominal aorta. Stomach and bowel: There is a small hiatal hernia. There is moderate colonic diverticulosis without CT evidence of acute diverticulitis. Fecal retention is noted throughout the colon. No bowel obstruction is seen. Duodenal diverticula are noted. The appendix is well-visualized and normal. Peritoneum: There is no intraperitoneal free air or abdominal ascites. Lymphadenopathy: None. Pelvic viscera: The bladder, uterus, and adnexa are normal as visualized. Skeletal structures: The skeletal structures are osteopenic. There is moderate to advanced lumbosacral spondylosis. No lytic or blastic lesions are seen. IMPRESSION: 1. There is no evidence of pulmonary embolus in the main, lobar, or segmental pulmonary arteries. 2. There is a small left pleural effusion with left basilar consolidation. Dense airspace consolidation is also seen in the left upper lobe, and there also numerous foci of patchy tree-in-bud nodularity and inflammatory appearing nodules. The findings suggest acute pneumonia superimposed on a chronic infectious/inflammatory process. Clinical correlation will be required. 3. Nonemergent/outpatient pulmonology follow-up is recommended, as is a repeat CT scan in 3-4 months time for reassessment of several irregular and likely inflammatory pulmonary lesions. 4. No acute infectious or inflammatory findings are identified in the abdomen or pelvis. 5. Cirrhotic liver morphology. 6. Colonic diverticulosis without CT evidence of acute diverticulitis. 7. Additional findings as above. PG Care Time/CCT Total # of Minutes Spent Total Time Spent with Patient: Total time spent is greater than 50% in coordination of care (as documented) at patient's floor/unit and/or counseling patient: Coding Level of Care Code 39749 Initial Inpt Care Lvl 3 Diagnoses Pneumonia J18.9 Laterality: left Lung location: upper lobe of lung Pneumonia type: due to unspecified organism Chest pain R07.9 Chest pain type: unspecified Abnormal CT scan of lung R91.8 Pleural effusion J90 Morbid obesity with BMI of 45.0-49.9, adult E66.01; Z68.42
--- NOTE | 2020-10-15 16:21 | Hospitalist Progress Note ---
Date of Service October 15, 2020 Assessment & Plan (1) Pneumonia: Plan: Patient is 85-year-old female with PMH DM II, chronic diastolic heart failure, COPD, HTN, HLD, CAD s/p MELVI to LAD in 2009, CVA, carotid stenosis, CKD III, anxiety, GERD presented to ER with complaint of chest pain. Patient states been having discomfort around left breast and under her left breast with deep breathing for couple weeks however has been worse the past few days. chronic nonproductive cough. Denies known fevers or chills. On admission WBC: 13, lactate WNL, procalcitonin: 0.15, D-dimer: 1230, negative troponin, negative COVID-19 PCR CTA chest showed no evidence of PE. There is a small left pleural effusion with left basilar consolidation. Dense airspace consolidation is also seen in the left upper lobe, and there also numerous foci of patchy tree-in-bud nodularity and inflammatory appearing nodules. Currently on abx with IV doxy and Zosyn Pulmonary on board recommended to de-escalating antibiotic to p.o. Doxy and cefuroxime to complete 5 to 7-day course. Recommended to get a chest x-ray in 2 to 3 weeks to ensure Follow-up CT scan in 3 months with her primary care provider to ensure the airspace opacities have resolved. We will follow up sputum culture Continue oxygen supplement Speech on board (2) Pleural effusion: Plan: CT chest showed small left pleural effusion with left basilar consolidation Pleural effusion is too small to drain Pulmonology Follow-up chest x-ray in 2 weeks is indicated to ensure the effusion is not increasing in size. (3) Chest pain: Plan: Atypical chest pain Pain worsening with deep breathing and reproducible in nature Mostly due to the small pleural effusion versus pneumonia Initial troponin negative Continue monitor closely (4) Diabetes mellitus, type 2: Plan: A1c: 7.0 on 08/18/2020 Continue to hold continue to hold home oral medicines Basal bolus insulin per protocol Continue monitor BMP (5) Chronic obstructive pulmonary disease: Plan: Continue Advair Albuterol neb as needed (6) CKD (chronic kidney disease), stage III: Plan: Cr: 1.2. Baseline~1.2 Monitor renal functions, avoid nephrotoxic agents when possible (7) Chronic diastolic heart failure: Plan: Continue home Lasix (8) Hypertension: Plan: Continue lisinopril, amlodipine, metoprolol tartrate Continue monitor BMP (9) Hyperlipidemia: Plan: Continue atorvastatin (10) CAD (coronary artery disease): Plan: S/P MELVI in 2009 Continue isosorbide, aspirin, metoprolol tartrate, atorvastatin (11) Cerebrovascular disease: Plan: History CVA Continue aspirin, atorvastatin (12) Anxiety: Plan: Continue Cymbalta DVT Prophylaxis -Heparin SQ Admission and Anticipated Discharge Date Admission Date: October 14, 2020 Subjective Patient was seen and examined for follow-up of chest pain and cough Lying in bed with no distress with friend at bedside With her permission she agreed for her friend to be present during the encounter Patient said every time she takes a deep breath or cough she develops pleuritic chest pain She said she is having a dry cough and unable to bring the phlegm up She said that she feels better compared to when she came to the hospital denies any palpitation, dizziness, fever Physical Exam Physical Exam: General- No acute distress Head- atraumatic Eyes- PERRL, EOMI, ENT- oropharynx clear Neck- supple, no JVD Lungs- clear to auscultation Heart- regular rhythm; no murmur Abdomen- normal bowel sounds, soft, nontender Extremities- no calf tenderness Neuro- alert, oriented x 3; PERRL, EOMI; no facial palsy; no dysarthria Skin- warm & dry Results & Data Results & Data ([facility]) Vital Signs (Past 12 Hours) Vital Signs Temp Pulse Pulse Resp BP Pulse Ox 10/15/20 15:02 36.6 C 64 16 99/47 L 95 10/15/20 15:00 64 10/15/20 11:51 36.8 C 63 16 124/61 92 10/15/20 10:37 66 10/15/20 07:00 37.1 C 69 20 138/52 L 95 (1) Pneumonia Laterality: left Lung location: upper lobe of lung Pneumonia type: due to unspecified organism Qualified Code(s): J18.9 - Pneumonia, unspecified organism (2) Chest pain Chest pain type: unspecified Qualified Code(s): R07.9 - Chest pain, unspecified
[2020-10-15] MEDS: KETOROLAC TROMETHAMINE 10 MG TABLET PO PRN (17:49)
[2020-10-15] MEDS: AMOXICILLIN 500 MG CAP PO SCH (17:49)
[2020-10-15] MEDS: ATORVASTATIN 40 MG TAB PO SCH (21:05)
[2020-10-15] MEDS: DOXYCYCLINE HYCLATE 100 MG CAP PO SCH (21:07)
[2020-10-15] MEDS: MONTELUKAST SODIUM 10 MG TABLET PO SCH (21:10)
[2020-10-16] MEDS: PANTOprazole 40 MG TAB PO SCH (09:51)
[2020-10-16] MEDS: DOXYCYCLINE HYCLATE 100 MG CAP PO SCH ×2 (09:51→20:12)
[2020-10-16] MEDS: METOPROLOL TARTRATE 50 MG TAB PO SCH ×2 (09:51→16:40)
[2020-10-16] MEDS: LOSARTAN POTASSIUM 50 MG TAB PO SCH (09:51)
[2020-10-16] MEDS: OXYBUTYNIN CHLORIDE XL 5 MG TABCR PO SCH (09:51)
[2020-10-16] MEDS: FUROSEMIDE 20 MG TAB PO SCH (09:52)
[2020-10-16] MEDS: BENZONATATE 100 MG CAPSULE PO SCH ×3 (09:52→20:11)
[2020-10-16] MEDS: GABAPENTIN 300 MG CAP PO SCH ×2 (09:52→20:13)
[2020-10-16] MEDS: FLUTICASONE/VILANTEROL 100/25MCG 14 PUFFS/INHALER INH SCH (09:52)
[2020-10-16] MEDS: DULoxetine HCL 60 MG CAP PO SCH (09:52)
[2020-10-16] MEDS: ASPIRIN 81 MG ECTAB PO SCH ×2 (09:52→20:10)
[2020-10-16] MEDS: amLODIPine BESYLATE 5 MG TAB PO SCH (09:52)
[2020-10-16] MEDS: ISOSORBIDE MONO EXTENDED REL 60 MG TABCR PO SCH (09:52)
[2020-10-16] MEDS: HEPARIN SOD 5,000 UNIT/0.5 ML VIAL SQ SCH ×2 (09:53→20:13)
[2020-10-16] MEDS: INSULIN ASPART 100 UNITS/ML 3 ML PEN SC SCH ×4 (09:55→21:31)
[2020-10-16] MEDS: INSULIN GLARGINE SOLOSTAR 100 UNITS/ML 3 ML PEN SC SCH ×2 (09:56→21:31)
[2020-10-16] MEDS: ACETAMINOPHEN 500 MG TAB PO SCH ×2 (10:03→20:18)
[2020-10-16] MEDS: traMADol HCL 50 MG TABLET PO SCH ×2 (10:03→20:17)
[2020-10-16] MEDS: DOCUSATE SODIUM 100 MG CAP PO SCH ×2 (10:03→20:18)
[2020-10-16] MEDS: AMOXICILLIN 500 MG CAP PO SCH ×2 (10:06→21:32)
--- NOTE | 2020-10-16 11:03 | Pulmonology Progress Note ---
Date of Service October 16, 2020 Assessment & Plan (1) Pneumonia: Laterality: left Lung location: upper lobe of lung Pneumonia type: due to unspecified organism Qualified Code(s): J18.9 - Pneumonia, unspecified organism (2) Chest pain: Chest pain type: unspecified Qualified Code(s): R07.9 - Chest pain, unspecified (3) Abnormal CT scan of lung: (4) Pleural effusion: (5) Morbid obesity with BMI of 45.0-49.9, adult: Plan: Impression: 85-year-old female admitted with chest discomfort found to have some patchy airspace opacity with small pleural effusion. The effusion is too small to sample currently but could be causing some of the discomfort on the left side. Her procalcitonin was negative but white count was elevated on pres entation. The differential is broad and would include infectious and inflammatory as well as malignant etiologies. At this point time would favor continued antibiotics and radiographic follow-up. Recommendations: 1. Multifocal airspace opacities: Recommend completing course of antibiotics and follow-up imaging as noted in previous note. Repeat CT scan in 10 to 12 weeks. 2. Pleural effusion: Too small to sample currently. Follow-up chest x-ray in 2 weeks is indicated to ensure the effusion is not increasing in size. 3. Chest discomfort: Probably secondary to pleural inflammation associated with the airspace opacity. Trial of tramadol may be beneficial. 4. Hypoxemia: Secondary to the above. Wean oxygen as tolerated. Recommend the patient be assessed for supplemental oxygen prior to discharge. We will see how she does clinically but anticipate that she may be able to be dismissed from the hospital in short order and follow-up with her primary care provider as an outpatient. We will sign off at this point in time. Feel free to contact us if we can be of additional assistance. Admission and Anticipated Discharge Date Admission Date: October 14, 2020 Subjective Patient seen and examined. Discussed with hospitalist at bedside. She is clinically improved. She having less chest pain. No cough or sputum production. She is not wheezing. She is tolerating antibiotics well. She wants to eat more. Review of Systems Review of Systems: All systems reviewed & are unremarkable except as noted in HPI & below Physical Exam 2 Constitutional: WD/WN, vitals as above Neck: trachea midline, no thyromegaly Respiratory: normal respiratory effort, lungs clear to auscultation Cardiovascular: Rate/Rhythm: regular rate Heart Sounds: normal S1 and normal S2; no murmur Extremities: + edema Gastrointestinal (Abdomen): normal bowel sounds, soft, nontender, no hepatosplenomegaly Musculoskeletal: Extremities: extremities normal to inspection Skin: no rashes, warm and dry Lymphatic: no cervical lymphadenopathy Results & Data Results & Data ([facility]) Vital Signs (Past 12 Hours) Vital Signs Temp Pulse Resp BP BP Pulse Ox 10/16/20 07:34 36.6 C 78 16 157/71 H 95 10/16/20 03:10 37 C 70 18 122/67 96 10/15/20 23:12 36.9 C 66 18 127/60 95 Laboratory Results 10/15/20 07:08 10/15/20 07:08 Diagnostic Findings No new imaging PG Care Time/CCT Total # of Minutes Spent Total Time Spent with Patient: Total time spent is greater than 50% in coordination of care (as documented) at patient's floor/unit and/or counseling patient: Coding Level of Care Code 85657 Subseq Hosp Care Lvl 2 Diagnoses Pneumonia J18.9 Laterality: left Lung location: upper lobe of lung Pneumonia type: due to unspecified organism Chest pain R07.9 Chest pain type: unspecified Abnormal CT scan of lung R91.8 Pleural effusion J90 Morbid obesity with BMI of 45.0-49.9, adult E66.01; Z68.42
[2020-10-16] MEDS: CETIRIZINE HCL 10 MG TABLET PO SCH (11:12)
--- NOTE | 2020-10-16 15:22 | Hospitalist Progress Note ---
Date of Service October 16, 2020 Assessment & Plan (1) Pneumonia: Plan: Patient is 85-year-old female with PMH DM II, chronic diastolic heart failure, COPD, HTN, HLD, CAD s/p MELVI to LAD in 2009, CVA, carotid stenosis, CKD III, anxiety, GERD presented to ER with complaint of chest pain. Patient states been having discomfort around left breast and under her left breast with deep breathing for couple weeks however has been worse the past few days. chronic nonproductive cough. Denies known fevers or chills. On admission WBC: 13, lactate WNL, procalcitonin: 0.15, D-dimer: 1230, negative troponin, negative COVID-19 PCR CTA chest showed no evidence of PE. There is a small left pleural effusion with left basilar consolidation. Dense airspace consolidation is also seen in the left upper lobe, and there also numerous foci of patchy tree-in-bud nodularity and inflammatory appearing nodules. Currently on abx with IV doxy and Zosyn Pulmonary on board recommended to de-escalating antibiotic to p.o. Doxy and amoxicillin to complete 5 to 7-day course. Recommended to get a chest x-ray in 2 to 3 weeks to ensure Follow-up CT scan in 3 months with her primary care provider to ensure the airspace opacities have resolved. case discussed with pulm Speech on board FEES done by speech at bedside showed no swallowing issues Speech recommended minced and moist diet Will continue wean off oxygen supplement Will get a nocturnal pulse oximetry and 2 step exercise on discharge (2) Pleural effusion: Plan: CT chest showed small left pleural effusion with left basilar consolidation Pleural effusion is too small to drain Pulmonology Follow-up chest x-ray in 2 weeks is indicated to ensure the effusion is not increasing in size. (3) Chest pain: Plan: Atypical chest pain Pain worsening with deep breathing and reproducible in nature Mostly due to the small pleural effusion versus pneumonia Initial troponin negative Continue monitor closely (4) Diabetes mellitus, type 2: Plan: A1c: 7.0 on 08/18/2020 Continue to hold continue to hold home oral medicines Basal bolus insulin per protocol Continue monitor BMP (5) Chronic obstructive pulmonary disease: Plan: Continue Advair Albuterol neb as needed (6) CKD (chronic kidney disease), stage III: Plan: Cr: 1.2. Baseline~1.2 Monitor renal functions, avoid nephrotoxic agents when possible (7) Chronic diastolic heart failure: Plan: Continue home Lasix (8) Hypertension: Plan: Continue lisinopril, amlodipine, metoprolol tartrate Continue monitor BMP (9) Hyperlipidemia: Plan: Continue atorvastatin (10) CAD (coronary artery disease): Plan: S/P MELVI in 2009 Continue isosorbide, aspirin, metoprolol tartrate, atorvastatin (11) Cerebrovascular disease: Plan: History CVA Continue aspirin, atorvastatin (12) Anxiety: Plan: Continue Cymbalta DVT Prophylaxis -Heparin SQ Admission and Anticipated Discharge Date Admission Date: October 14, 2020 Subjective Pt was seen and examined for follow up of pleuritic chest pain Lying in bed with no distress Pt said that she feels much better She said that the pleuritic chest pain improves She had an bedside swallow eval by speech Spoke with rocio Bolivar over the phone and provided with updates, I tried to call rocio Ramirez, but no one answered Denies any chest pain, palpitation, dizziness and SOB Physical Exam Physical Exam: General- No acute distress Head- atraumatic Eyes- PERRL, EOMI, ENT- oropharynx clear Neck- supple, no JVD Lungs- clear to auscultation Heart- regular rhythm; no murmur Abdomen- normal bowel sounds, soft, nontender Extremities- no calf tenderness Neuro- alert, oriented x 3; PERRL, EOMI; no facial palsy; no dysarthria Skin- warm & dry Results & Data Results & Data ([facility]) Vital Signs (Past 12 Hours) Vital Signs Temp Pulse Pulse Resp BP Pulse Ox 10/16/20 11:26 36.9 C 60 16 120/57 L 91 10/16/20 08:00 76 10/16/20 07:34 36.6 C 78 16 157/71 H 95 (1) Chest pain Chest pain type: unspecified Qualified Code(s): R07.9 - Chest pain, unspecified (2) Pneumonia Laterality: left Lung location: upper lobe of lung Pneumonia type: due to unspecified organism Qualified Code(s): J18.9 - Pneumonia, unspecified organism
[2020-10-16] MEDS: ATORVASTATIN 40 MG TAB PO SCH (20:11)
[2020-10-16] MEDS: MONTELUKAST SODIUM 10 MG TABLET PO SCH (20:14)
[2020-10-17] MEDS: AMOXICILLIN 500 MG CAP PO SCH ×2 (08:54→20:59)
[2020-10-17] MEDS: BENZONATATE 100 MG CAPSULE PO SCH ×3 (08:54→20:51)
[2020-10-17] MEDS: FUROSEMIDE 20 MG TAB PO SCH (08:54)
[2020-10-17] MEDS: ASPIRIN 81 MG ECTAB PO SCH ×2 (08:55→20:50)
[2020-10-17] MEDS: OXYBUTYNIN CHLORIDE XL 5 MG TABCR PO SCH (08:56)
[2020-10-17] MEDS: METOPROLOL TARTRATE 50 MG TAB PO SCH ×2 (08:56→17:28)
[2020-10-17] MEDS: DULoxetine HCL 60 MG CAP PO SCH (08:56)
[2020-10-17] MEDS: LOSARTAN POTASSIUM 50 MG TAB PO SCH (08:56)
[2020-10-17] MEDS: KETOROLAC TROMETHAMINE 10 MG TABLET PO PRN (08:57)
[2020-10-17] MEDS: amLODIPine BESYLATE 5 MG TAB PO SCH (08:57)
[2020-10-17] MEDS: ISOSORBIDE MONO EXTENDED REL 60 MG TABCR PO SCH (08:57)
[2020-10-17] MEDS: GABAPENTIN 300 MG CAP PO SCH ×2 (08:57→20:52)
[2020-10-17] MEDS: PANTOprazole 40 MG TAB PO SCH (08:57)
[2020-10-17] MEDS: DOXYCYCLINE HYCLATE 100 MG CAP PO SCH ×2 (08:58→20:52)
[2020-10-17] MEDS: FLUTICASONE/VILANTEROL 100/25MCG 14 PUFFS/INHALER INH SCH (08:58)
[2020-10-17] MEDS: HEPARIN SOD 5,000 UNIT/0.5 ML VIAL SQ SCH ×2 (08:59→20:53)
[2020-10-17] MEDS: INSULIN GLARGINE SOLOSTAR 100 UNITS/ML 3 ML PEN SC SCH ×2 (09:01→20:57)
[2020-10-17] MEDS: INSULIN ASPART 100 UNITS/ML 3 ML PEN SC SCH ×4 (09:08→20:55)
[2020-10-17] MEDS: DOCUSATE SODIUM 100 MG CAP PO SCH ×2 (09:18→20:52)
[2020-10-17] MEDS: traMADol HCL 50 MG TABLET PO SCH ×2 (09:18→20:58)
[2020-10-17] MEDS: ACETAMINOPHEN 500 MG TAB PO SCH ×2 (09:22→20:49)
[2020-10-17] MEDS: CETIRIZINE HCL 10 MG TABLET PO SCH (13:45)
--- NOTE | 2020-10-17 19:03 | Hospitalist Progress Note ---
Date of Service October 17, 2020 Assessment & Plan (1) Pneumonia: Plan: Patient is 85-year-old female with PMH DM II, chronic diastolic heart failure, COPD, HTN, HLD, CAD s/p MELVI to LAD in 2009, CVA, carotid stenosis, CKD III, anxiety, GERD presented to ER with complaint of chest pain. Patient states been having discomfort around left breast and under her left breast with deep breathing for couple weeks however has been worse the past few days. chronic nonproductive cough. Denies known fevers or chills. On admission WBC: 13, lactate WNL, procalcitonin: 0.15, D-dimer: 1230, negative troponin, negative COVID-19 PCR CTA chest showed no evidence of PE. There is a small left pleural effusion with left basilar consolidation. Dense airspace consolidation is also seen in the left upper lobe, and there also numerous foci of patchy tree-in-bud nodularity and inflammatory appearing nodules. Currently on abx with IV doxy and Zosyn Pulmonary on board recommended to de-escalating antibiotic to p.o. Doxy and amoxicillin to complete 5 to 7-day course. Recommended to get a chest x-ray in 2 to 3 weeks to ensure Follow-up CT scan in 3 months with her primary care provider to ensure the airspace opacities have resolved. Speech on board FEES done by speech at bedside showed no swallowing issues Speech recommended minced and moist diet Currently she is on RA Overnight nocturnal pulse oximetry suggested that pt will require oxygen at night Will get a 2 step exercise on discharge (2) Pleural effusion: Plan: CT chest showed small left pleural effusion with left basilar consolidation Pleural effusion is too small to drain Pulmonology Follow-up chest x-ray in 2 weeks is indicated to ensure the effusion is not increasing in size. (3) Chest pain: Plan: Atypical chest pain Pain worsening with deep breathing and reproducible in nature Mostly due to the small pleural effusion versus pneumonia Initial troponin negative Continue monitor closely (4) Diabetes mellitus, type 2: Plan: A1c: 7.0 on 08/18/2020 Continue to hold continue to hold home oral medicines Basal bolus insulin per protocol Continue monitor BMP (5) Chronic obstructive pulmonary disease: Plan: Continue Advair Albuterol neb as needed (6) CKD (chronic kidney disease), stage III: Plan: Cr: 1.2. Baseline~1.2 Monitor renal functions, avoid nephrotoxic agents when possible (7) Chronic diastolic heart failure: Plan: Continue home Lasix (8) Hypertension: Plan: Continue lisinopril, amlodipine, metoprolol tartrate Continue monitor BMP (9) Hyperlipidemia: Plan: Continue atorvastatin (10) CAD (coronary artery disease): Plan: S/P MELVI in 2009 Continue isosorbide, aspirin, metoprolol tartrate, atorvastatin (11) Cerebrovascular disease: Plan: History CVA Continue aspirin, atorvastatin (12) Anxiety: Plan: Continue Cymbalta DVT Prophylaxis -Heparin SQ Admission and Anticipated Discharge Date Admission Date: October 14, 2020 Subjective Pt was seen and examined for follow up of pleuritic chest pain Sitting in chair with no distress Pt said that she feels much better She said that the pleuritic chest pain is very minimal Denies any chest pain, palpitation, dizziness and SOB Physical Exam Physical Exam: General- No acute distress Head- atraumatic Eyes- PERRL, EOMI, ENT- oropharynx clear Neck- supple, no JVD Lungs- clear to auscultation Heart- regular rhythm; no murmur Abdomen- normal bowel sounds, soft, nontender Extremities- no calf tenderness Neuro- alert, oriented x 3; PERRL, EOMI; no facial palsy; no dysarthria Skin- warm & dry Results & Data Results & Data ([facility]) Vital Signs (Past 12 Hours) Vital Signs Temp Pulse Pulse Resp BP Pulse Ox 10/17/20 15:23 36.9 C 81 18 138/60 90 10/17/20 11:15 37.2 C 75 18 147/66 H 90 10/17/20 08:03 37.2 C 84 18 194/68 H 90 10/17/20 08:00 80 (1) Chest pain Chest pain type: unspecified Qualified Code(s): R07.9 - Chest pain, unspecified (2) Pneumonia Laterality: left Lung location: upper lobe of lung Pneumonia type: due to unspecified organism Qualified Code(s): J18.9 - Pneumonia, unspecified organism
[2020-10-17] MEDS: ATORVASTATIN 40 MG TAB PO SCH (20:51)
[2020-10-17] MEDS: MONTELUKAST SODIUM 10 MG TABLET PO SCH (20:58)
[2020-10-18] MEDS: MELATONIN 3 MG TAB PO PRN ×2 (02:13→21:43)
[2020-10-18] MEDS: OXYBUTYNIN CHLORIDE XL 5 MG TABCR PO SCH (08:12)
[2020-10-18] MEDS: amLODIPine BESYLATE 5 MG TAB PO SCH (08:12)
[2020-10-18] MEDS: GABAPENTIN 300 MG CAP PO SCH ×2 (08:12→21:40)
[2020-10-18] MEDS: ISOSORBIDE MONO EXTENDED REL 60 MG TABCR PO SCH (08:13)
[2020-10-18] MEDS: DOXYCYCLINE HYCLATE 100 MG CAP PO SCH ×2 (08:13→21:39)
[2020-10-18] MEDS: LOSARTAN POTASSIUM 50 MG TAB PO SCH (08:13)
[2020-10-18] MEDS: BENZONATATE 100 MG CAPSULE PO SCH ×3 (08:14→21:39)
[2020-10-18] MEDS: METOPROLOL TARTRATE 50 MG TAB PO SCH ×2 (08:14→18:07)
[2020-10-18] MEDS: KETOROLAC TROMETHAMINE 10 MG TABLET PO PRN ×2 (08:14→22:47)
[2020-10-18] MEDS: FLUTICASONE/VILANTEROL 100/25MCG 14 PUFFS/INHALER INH SCH (08:15)
[2020-10-18] MEDS: DULoxetine HCL 60 MG CAP PO SCH (08:15)
[2020-10-18] MEDS: ASPIRIN 81 MG ECTAB PO SCH ×2 (08:15→21:37)
[2020-10-18] MEDS: PANTOprazole 40 MG TAB PO SCH (08:15)
[2020-10-18] MEDS: INSULIN GLARGINE SOLOSTAR 100 UNITS/ML 3 ML PEN SC SCH ×2 (08:16→21:42)
[2020-10-18] MEDS: HEPARIN SOD 5,000 UNIT/0.5 ML VIAL SQ SCH ×2 (08:16→21:41)
[2020-10-18] MEDS: FUROSEMIDE 20 MG TAB PO SCH (08:18)
[2020-10-18] MEDS: ACETAMINOPHEN 500 MG TAB PO SCH ×2 (08:25→21:37)
[2020-10-18] MEDS: traMADol HCL 50 MG TABLET PO SCH ×2 (08:25→21:43)
[2020-10-18] MEDS: INSULIN ASPART 100 UNITS/ML 3 ML PEN SC SCH ×4 (08:25→21:41)
[2020-10-18] MEDS: DOCUSATE SODIUM 100 MG CAP PO SCH ×2 (08:25→21:39)
[2020-10-18] MEDS: CETIRIZINE HCL 10 MG TABLET PO SCH (13:19)
[2020-10-18] MEDS: AMOXICILLIN 500 MG CAP PO SCH ×2 (13:19→22:40)
--- NOTE | 2020-10-18 15:59 | Hospitalist Progress Note ---
Date of Service October 18, 2020 Assessment & Plan (1) Pneumonia: Plan: Patient is 85-year-old female with PMH DM II, chronic diastolic heart failure, COPD, HTN, HLD, CAD s/p MELVI to LAD in 2009, CVA, carotid stenosis, CKD III, anxiety, GERD presented to ER with complaint of chest pain. Patient states been having discomfort around left breast and under her left breast with deep breathing for couple weeks however has been worse the past few days. chronic nonproductive cough. Denies known fevers or chills. On admission WBC: 13, lactate WNL, procalcitonin: 0.15, D-dimer: 1230, negative troponin, negative COVID-19 PCR CTA chest showed no evidence of PE. There is a small left pleural effusion with left basilar consolidation. Dense airspace consolidation is also seen in the left upper lobe, and there also numerous foci of patchy tree-in-bud nodularity and inflammatory appearing nodules. Currently on abx with IV doxy and Zosyn Pulmonary on board recommended to de-escalating antibiotic to p.o. Doxy and amoxicillin to complete 5 to 7-day course. Recommended to get a chest x-ray in 2 to 3 weeks to ensure Follow-up CT scan in 3 months with her primary care provider to ensure the airspace opacities have resolved. Speech on board FEES done by speech at bedside showed no swallowing issues Speech recommended minced and moist diet Currently she is on RA Overnight nocturnal pulse oximetry suggested that pt will require oxygen at night Will get a 2 step exercise on discharge (2) Pleural effusion: Plan: CT chest showed small left pleural effusion with left basilar consolidation Pleural effusion is too small to drain Pulmonology Follow-up chest x-ray in 2 weeks is indicated to ensure the effusion is not increasing in size. (3) Chest pain: Plan: Atypical chest pain Pain worsening with deep breathing and reproducible in nature Mostly due to the small pleural effusion versus pneumonia Initial troponin negative Continue monitor closely Clinically improved (4) Diabetes mellitus, type 2: Plan: A1c: 7.0 on 08/18/2020 Continue to hold continue to hold home oral medicines Basal bolus insulin per protocol Continue monitor BMP (5) Chronic obstructive pulmonary disease: Plan: Continue Advair Albuterol neb as needed (6) CKD (chronic kidney disease), stage III: Plan: Cr: 1.2. Baseline~1.2 Monitor renal functions, avoid nephrotoxic agents when possible (7) Chronic diastolic heart failure: Plan: Continue home Lasix (8) Hypertension: Plan: Continue lisinopril, amlodipine, metoprolol tartrate Continue monitor BMP (9) Hyperlipidemia: Plan: Continue atorvastatin (10) Ambulatory dysfunction: Plan: Continue PT/OT eval Physical and occupational therapist recommended SNF Fall precaution We will need to transition to the SNF section in [facility] (11) CAD (coronary artery disease): Plan: S/P MELVI in 2009 Continue isosorbide, aspirin, metoprolol tartrate, atorvastatin (12) Cerebrovascular disease: Plan: History CVA Continue aspirin, atorvastatin (13) Anxiety: Plan: Continue Cymbalta DVT Prophylaxis -Heparin SQ Admission and Anticipated Discharge Date Admission Date: October 14, 2020 Subjective Pt was seen and examined for follow up of pleuritic chest discomfort Lying in bed with no distress trying to rest Patient said she did not sleep last night due to the noise She said she felt tired this morning She said her breathing is stable Denies any chest pain, palpitation, dizziness and SOB Physical Exam Physical Exam: General- No acute distress Head- atraumatic Eyes- PERRL, EOMI, ENT- oropharynx clear Neck- supple, no JVD Lungs- clear to auscultation Heart- regular rhythm; no murmur Abdomen- normal bowel sounds, soft, nontender Extremities- no calf tenderness Neuro- alert, oriented x 3; PERRL, EOMI; no facial palsy; no dysarthria Skin- warm & dry Results & Data Results & Data ([facility]) Vital Signs (Past 12 Hours) Vital Signs Temp Pulse Pulse Resp BP Pulse Ox Pulse Ox 10/18/20 15:33 36.4 C L 65 20 133/62 90 10/18/20 12:04 36.8 C 59 L 20 118/55 L 90 10/18/20 09:38 92 10/18/20 07:34 68 10/18/20 07:25 36.9 C 71 20 206/69 H 95 (1) Chest pain Chest pain type: unspecified Qualified Code(s): R07.9 - Chest pain, unspecified (2) Pneumonia Laterality: left Lung location: upper lobe of lung Pneumonia type: due to unspecified organism Qualified Code(s): J18.9 - Pneumonia, unspecified organism
[2020-10-18] MEDS: ATORVASTATIN 40 MG TAB PO SCH (21:38)
[2020-10-18] MEDS: MONTELUKAST SODIUM 10 MG TABLET PO SCH (21:42)
[2020-10-19] MEDS: INSULIN ASPART 100 UNITS/ML 3 ML PEN SC SCH ×4 (08:21→21:24)
[2020-10-19] MEDS: FUROSEMIDE 20 MG TAB PO SCH (08:25)
[2020-10-19] MEDS: LOSARTAN POTASSIUM 50 MG TAB PO SCH (08:25)
[2020-10-19] MEDS: DULoxetine HCL 60 MG CAP PO SCH (08:25)
[2020-10-19] MEDS: KETOROLAC TROMETHAMINE 10 MG TABLET PO PRN (08:25)
[2020-10-19] MEDS: GABAPENTIN 300 MG CAP PO SCH ×2 (08:26→21:19)
[2020-10-19] MEDS: OXYBUTYNIN CHLORIDE XL 5 MG TABCR PO SCH (08:26)
[2020-10-19] MEDS: AMOXICILLIN 500 MG CAP PO SCH ×2 (08:26→21:19)
[2020-10-19] MEDS: ISOSORBIDE MONO EXTENDED REL 60 MG TABCR PO SCH (08:27)
[2020-10-19] MEDS: PANTOprazole 40 MG TAB PO SCH (08:27)
[2020-10-19] MEDS: amLODIPine BESYLATE 5 MG TAB PO SCH (08:28)
[2020-10-19] MEDS: ASPIRIN 81 MG ECTAB PO SCH ×2 (08:29→21:18)
[2020-10-19] MEDS: FLUTICASONE/VILANTEROL 100/25MCG 14 PUFFS/INHALER INH SCH (08:29)
[2020-10-19] MEDS: HEPARIN SOD 5,000 UNIT/0.5 ML VIAL SQ SCH ×2 (08:29→21:19)
[2020-10-19] MEDS: DOXYCYCLINE HYCLATE 100 MG CAP PO SCH ×2 (08:30→21:19)
[2020-10-19] MEDS: BENZONATATE 100 MG CAPSULE PO SCH ×3 (08:30→21:18)
[2020-10-19] MEDS: METOPROLOL TARTRATE 50 MG TAB PO SCH ×2 (08:31→17:37)
[2020-10-19] MEDS: INSULIN GLARGINE SOLOSTAR 100 UNITS/ML 3 ML PEN SC SCH ×2 (08:32→21:25)
[2020-10-19] MEDS: DOCUSATE SODIUM 100 MG CAP PO SCH ×2 (09:59→21:18)
[2020-10-19] MEDS: traMADol HCL 50 MG TABLET PO SCH ×2 (10:00→21:19)
[2020-10-19] MEDS: ACETAMINOPHEN 500 MG TAB PO SCH ×2 (10:01→21:29)
[2020-10-19] MEDS: CETIRIZINE HCL 10 MG TABLET PO SCH (10:02)
--- NOTE | 2020-10-19 17:36 | Hospitalist Progress Note ---
Date of Service October 19, 2020 Assessment & Plan (1) Pneumonia: Plan: Patient is 85-year-old female with PMH DM II, chronic diastolic heart failure, COPD, HTN, HLD, CAD s/p MELVI to LAD in 2009, CVA, carotid stenosis, CKD III, anxiety, GERD presented to ER with complaint of chest pain. Patient states been having discomfort around left breast and under her left breast with deep breathing for couple weeks however has been worse the past few days. chronic nonproductive cough. Denies known fevers or chills. On admission WBC: 13, lactate WNL, procalcitonin: 0.15, D-dimer: 1230, negative troponin, negative COVID-19 PCR CTA chest showed no evidence of PE. There is a small left pleural effusion with left basilar consolidation. Dense airspace consolidation is also seen in the left upper lobe, and there also numerous foci of patchy tree-in-bud nodularity and inflammatory appearing nodules. Currently on abx with IV doxy and Zosyn Pulmonary on board recommended to de-escalating antibiotic to p.o. Doxy and amoxicillin to complete 5 to 7-day course. Recommended to get a chest x-ray in 2 to 3 weeks to ensure Follow-up CT scan in 3 months with her primary care provider to ensure the airspace opacities have resolved. Speech on board FEES done by speech at bedside showed no swallowing issues Speech recommended minced and moist diet Currently she is on RA Overnight nocturnal pulse oximetry suggested that pt will require oxygen at night Will get a 2 step exercise on discharge (2) Pleural effusion: Plan: CT chest showed small left pleural effusion with left basilar consolidation Pleural effusion is too small to drain Pulmonology Follow-up chest x-ray in 2 weeks is indicated to ensure the effusion is not increasing in size. (3) Chest pain: Plan: Atypical chest pain Pain worsening with deep breathing and reproducible in nature Mostly due to the small pleural effusion versus pneumonia Initial troponin negative Continue monitor closely Clinically improved (4) Diabetes mellitus, type 2: Plan: A1c: 7.0 on 08/18/2020 Continue to hold continue to hold home oral medicines Basal bolus insulin per protocol Continue monitor BMP (5) Chronic obstructive pulmonary disease: Plan: Continue Advair Albuterol neb as needed (6) CKD (chronic kidney disease), stage III: Plan: Cr: 1.2. Baseline~1.2 Monitor renal functions, avoid nephrotoxic agents when possible (7) Chronic diastolic heart failure: Plan: Continue home Lasix (8) Hypertension: Plan: Continue lisinopril, amlodipine, metoprolol tartrate Continue monitor BMP (9) Hyperlipidemia: Plan: Continue atorvastatin (10) Ambulatory dysfunction: Plan: Continue PT/OT eval Physical and occupational therapist recommended SNF Fall precaution We will need to transition to the SNF section in [facility] (11) CAD (coronary artery disease): Plan: S/P MELVI in 2009 Continue isosorbide, aspirin, metoprolol tartrate, atorvastatin (12) Cerebrovascular disease: Plan: History CVA Continue aspirin, atorvastatin (13) Anxiety: Plan: Continue Cymbalta DVT Prophylaxis -Heparin SQ Admission and Anticipated Discharge Date Admission Date: October 14, 2020 Subjective Pt was seen and examined for follow up of pleuritic chest discomfort Sitting in chair with no distress trying to rest She said that she feels much better today She said her breathing is stable Denies any chest pain, palpitation, dizziness and SOB Physical Exam Physical Exam: General- No acute distress Head- atraumatic Eyes- PERRL, EOMI, ENT- oropharynx clear Neck- supple, no JVD Lungs- clear to auscultation Heart- regular rhythm; no murmur Abdomen- normal bowel sounds, soft, nontender Extremities- no calf tenderness Neuro- alert, oriented x 3; PERRL, EOMI; no facial palsy; no dysarthria Skin- warm & dry Results & Data Results & Data ([facility]) Vital Signs (Past 12 Hours) Vital Signs Temp Pulse Resp BP BP Pulse Ox 10/19/20 15:26 36.6 C 59 L 20 101/52 L 90 10/19/20 11:45 36.9 C 53 L 20 116/56 L 95 10/19/20 08:00 37.1 C 76 18 158/66 H 96 (1) Chest pain Chest pain type: unspecified Qualified Code(s): R07.9 - Chest pain, unspecified (2) Pneumonia Laterality: left Lung location: upper lobe of lung Pneumonia type: due to unspecified organism Qualified Code(s): J18.9 - Pneumonia, unspecified organism
[2020-10-19] MEDS: ATORVASTATIN 40 MG TAB PO SCH (21:18)
[2020-10-19] MEDS: MONTELUKAST SODIUM 10 MG TABLET PO SCH (21:19)
[2020-10-20] MEDS: INSULIN ASPART 100 UNITS/ML 3 ML PEN SC SCH ×2 (09:14→12:03)
[2020-10-20] MEDS: INSULIN GLARGINE SOLOSTAR 100 UNITS/ML 3 ML PEN SC SCH (09:17)
[2020-10-20] MEDS: METOPROLOL TARTRATE 50 MG TAB PO SCH (09:34)
[2020-10-20] MEDS: ASPIRIN 81 MG ECTAB PO SCH (09:51)
[2020-10-20] MEDS: amLODIPine BESYLATE 5 MG TAB PO SCH (09:51)
[2020-10-20] MEDS: BENZONATATE 100 MG CAPSULE PO SCH ×2 (09:52→13:49)
[2020-10-20] MEDS: DOXYCYCLINE HYCLATE 100 MG CAP PO SCH (09:52)
[2020-10-20] MEDS: DULoxetine HCL 60 MG CAP PO SCH (09:53)
[2020-10-20] MEDS: FUROSEMIDE 20 MG TAB PO SCH (09:53)
[2020-10-20] MEDS: ISOSORBIDE MONO EXTENDED REL 60 MG TABCR PO SCH (09:53)
[2020-10-20] MEDS: GABAPENTIN 300 MG CAP PO SCH (09:53)
[2020-10-20] MEDS: FLUTICASONE/VILANTEROL 100/25MCG 14 PUFFS/INHALER INH SCH (09:54)
[2020-10-20] MEDS: LOSARTAN POTASSIUM 50 MG TAB PO SCH (09:54)
[2020-10-20] MEDS: AMOXICILLIN 500 MG CAP PO SCH (09:55)
[2020-10-20] MEDS: OXYBUTYNIN CHLORIDE XL 5 MG TABCR PO SCH (09:55)
[2020-10-20] MEDS: PANTOprazole 40 MG TAB PO SCH (09:55)
[2020-10-20] MEDS: DOCUSATE SODIUM 100 MG CAP PO SCH (10:12)
[2020-10-20] MEDS: traMADol HCL 50 MG TABLET PO SCH (10:13)
[2020-10-20] MEDS: ACETAMINOPHEN 500 MG TAB PO SCH (10:16)
[2020-10-20] MEDS: HEPARIN SOD 5,000 UNIT/0.5 ML VIAL SQ SCH (10:21)
[2020-10-20] MEDS: CETIRIZINE HCL 10 MG TABLET PO SCH (11:22)
--- NOTE | 2020-10-20 12:20 | Discharge Summary ---
Date of Service October 20, 2020 Admission HPI Per Admitting Provider Patient is 85-year-old female with PMH DM II, chronic diastolic heart failure, COPD, HTN, HLD, CAD s/p MELVI to LAD in 2009, CVA, carotid stenosis, CKD III, anxiety, GERD presented to ER with complaint of chest pain. Patient states been having discomfort around left breast and under her left breast with deep breathing for couple weeks however has been worse the past few days. She denies shortness of breath. Patient reports has chronic nonproductive cough and does not feel this is worse than baseline. Denies any known fevers or chills. She reports chronic bilateral lower extremity swelling and reports this is at baseline. Patient reports has chronic constipation and has been drinking prune juice. Yesterday had BM. She reports she lives in an apartment at [facility], and has caregiver during day. Denies diaphoresis, N/V/D, CEDENO, dizziness, syncope, vision changes, neck pain, orthopnea, palpitations, hemoptysis, sore throat, choking, otalgia, rhinorrhea, abdominal pain, paresthesias, extremity weakness, rashes, urinary symptoms. Admission Exam Per Admitting Provider General: no distress, obese Head: normocephalic, atraumatic Eyes: PERRL, EOM's intact, conjunctiva non-injected, anicteric ENT: normal inspection external ears, nose, mucous membranes moist Neck: supple, trachea midline Lungs: clear, no respiratory distress, diminished breath sounds left base, no rales noted CV: RRR, trace pretibial edema Abd: normal BS, soft, non-tender Ext: Bilateral lower legs with discoloration, no calf tenderness Neuro: A&O x 3, no focal deficits noted, normal affect Skin: warm, dry Principal Diagnosis Pneumonia: Pleural effusion: Diabetes mellitus, type 2: Chronic obstructive pulmonary disease: CKD (chronic kidney disease), stage III: Chronic diastolic heart failure: Hypertension: Hyperlipidemia: Ambulatory dysfunction: CAD (coronary artery disease): Cerebrovascular disease: Discharge Exam General- No acute distress Head- atraumatic Eyes- PERRL, EOMI, ENT- oropharynx clear Neck- supple, no JVD Lungs- clear to auscultation Heart- regular rhythm; no murmur Abdomen- normal bowel sounds, soft, nontender Extremities- no calf tenderness Neuro- alert, oriented x 3; PERRL, EOMI; no facial palsy; no dysarthria Skin- warm & dry Discharge Data Allergies Allergy/AdvReac Type Severity Reaction Status Date / Time azelastine Allergy Intermediate elevated bp Verified 10/21/20 03:14 trospium Allergy Intermediate hives Verified 10/21/20 03:14 azithromycin Allergy Mild Rash Verified 10/21/20 03:14 citalopram Allergy Unknown UNKNOWN Verified 10/21/20 03:14 chlorpheniramine AdvReac Intermediate ELEVATED BP Verified 10/21/20 03:14 Corticosteroids AdvReac Intermediate ELEVATED BP Verified 10/21/20 03:14 (Glucocorticoids) fexofenadine AdvReac Intermediate ELEVATED BP Verified 10/21/20 03:14 fluticasone AdvReac Intermediate ELEVATED BP Verified 10/21/20 03:14 hydrocodone AdvReac Intermediate ELEVATED BP Verified 10/21/20 03:14 magnesium salicylate AdvReac Intermediate ELEVATED BP Verified 10/21/20 03:14 salicylates AdvReac Intermediate ELEVATED BP Verified 10/21/20 03:14 Consultations 10/14/20 17:00 ED Decision to Admit Stat 10/15/20 08:00 Consult Pulmonology Routine Ordered Studies 10/14/20 14:43 CT abd pelvis IV con only Stat CT angio chest PE protocol Stat CT ANGIOGRAM OF THE CHEST; CT SCAN OF THE ABDOMEN AND PELVIS WITH IV CONTRAST CLINICAL HISTORY: Atypical chest pain. Left upper quadrant abdominal pain. COMPARISON STUDY: Chest CT dated 06/16/2018. Abdominal CT dated 01/23/2011. TECHNIQUE: Following the IV administration of 118 of Optiray 320, CT angiogram of the chest is performed from the upper abdomen to the thoracic inlet utilizing the pulmonary embolus protocol. Images are reviewed in the axial, sagittal, coronal planes. 3-D MIPS images are created and assessed. Subsequently, CT scan of the abdomen and pelvis was performed from the lung bases to the proximal femora. Images are reviewed in the axial, sagittal, and coronal planes. IV contrast was administered without complication. A dose lowering technique was utilized adhering to the principles of ALARA. CT DOSE: 1400.20 mGycm FINDINGS: CHEST: Thyroid: Atrophic and heterogeneous. Thoracic aorta: There is atherosclerotic calcification of the thoracic aorta, which is normal in caliber and demonstrates standard 3-vessel arch anatomy. No dissection is seen. Pulmonary vasculature: The pulmonary trunk is normal in caliber. There are no filling defects identified in the main, lobar, or segmental pulmonary arteries to indicate pulmonary embolus. Heart: The heart is top normal in size and without pericardial effusion. The coronary arteries are densely calcified. Lungs and pleural spaces: Evaluation of the lung parenchyma is compromised by motion artifact. The trachea and central airways are clear. There is a small left pleural effusion with associated left basilar consolidation. Numerous foci of tree-in-bud nodularity are seen throughout both lungs. There is irregular nodular consolidation are seen throughout both lungs. Similar findings were seen on the 06/16/2018. The largest nodular foci are seen in the right upper lobe on image 121 measuring 13 mm and in the right lower lobe on image #87 measuring 12 mm. Dense airspace consolidation is seen in the left upper lobe is seen along the major fissure on image #130. Mediastinum: There is no mediastinal lymphadenopathy. Caroline: Clear. Axillae: There is no axillary lymphadenopathy. Bony thorax: The skeletal structures are osteopenic. Degenerative change and hyperkyphosis is noted in the thoracic spine. Advanced arthritic change is seen in the shoulders. No lytic or blastic lesions are identified. There is a healed right-sided rib fracture. ABDOMEN AND PELVIS: Liver: The contrast-enhanced liver is cirrhotic in morphology and heterogeneous in attenuation. There is nodularity of the surface contour as well as hypertrophy of the left lobe and caudate. There is no intrahepatic or ductal dilatation. The hepatic veins and portal veins are patent. A 10 mm hypodensity in the right lobe on image #58 has been present dating back to 2010. This is of doubtful significance and may represent a hemangioma. Gallbladder: Surgically absent noting clips in the gallbladder fossa. Spleen: Normal in size and attenuation. Pancreas: Mildly atrophic and grossly unremarkable. Adrenal glands: Unremarkable. Kidneys: The contrast enhanced kidneys demonstrate cortical atrophy and are without hydronephrosis. The kidneys enhance symmetrically. A 1.9 cm cyst is noted in the right kidney. Abdominal vasculature: There is advanced atherosclerotic calcification and mild ectasia of the abdominal aorta. Stomach and bowel: There is a small hiatal hernia. There is moderate colonic diverticulosis without CT evidence of acute diverticulitis. Fecal retention is noted throughout the colon. No bowel obstruction is seen. Duodenal diverticula are noted. The appendix is well-visualized and normal. Peritoneum: There is no intraperitoneal free air or abdominal ascites. Lymphadenopathy: None. Pelvic viscera: The bladder, uterus, and adnexa are normal as visualized. Skeletal structures: The skeletal structures are osteopenic. There is moderate to advanced lumbosacral spondylosis. No lytic or blastic lesions are seen. IMPRESSION: 1. There is no evidence of pulmonary embolus in the main, lobar, or segmental pulmonary arteries. 2. There is a small left pleural effusion with left basilar consolidation. Dense airspace consolidation is also seen in the left upper lobe, and there also numerous foci of patchy tree-in-bud nodularity and inflammatory appearing nodules. The findings suggest acute pneumonia superimposed on a chronic infectious/inflammatory process. Clinical correlation will be required. 3. Nonemergent/outpatient pulmonology follow-up is recommended, as is a repeat CT scan in 3-4 months time for reassessment of several irregular and likely inflammatory pulmonary lesions. 4. No acute infectious or inflammatory findings are identified in the abdomen or pelvis. 5. Cirrhotic liver morphology. 6. Colonic diverticulosis without CT evidence of acute diverticulitis. 7. Additional findings as above. ACT 112: Negative or not required by law. Electronically signed by: Ravi Schwarz M.D. 10/14/2020 4:17 PM Dictated: 10/14/20 1604Transcribed: 10/14/[address] ANGIOGRAM OF THE CHEST; CT SCAN OF THE ABDOMEN AND PELVIS WITH IV CONTRAST CLINICAL HISTORY: Atypical chest pain. Left upper quadrant abdominal pain. COMPARISON STUDY: Chest CT dated 06/16/2018. Abdominal CT dated 01/23/2011. TECHNIQUE: Following the IV administration of 118 of Optiray 320, CT angiogram of the chest is performed from the upper abdomen to the thoracic inlet utilizing the pulmonary embolus protocol. Images are reviewed in the axial, sagittal, coronal planes. 3-D MIPS images are created and assessed. Subsequently, CT scan of the abdomen and pelvis was performed from the lung bases to the proximal femora. Images are reviewed in the axial, sagittal, and coronal planes. IV contrast was administered without complication. A dose lowering technique was utilized adhering to the principles of ALARA. CT DOSE: 1400.20 mGycm FINDINGS: CHEST: Thyroid: Atrophic and heterogeneous. Thoracic aorta: There is atherosclerotic calcification of the thoracic aorta, which is normal in caliber and demonstrates standard 3-vessel arch anatomy. No dissection is seen. Pulmonary vasculature: The pulmonary trunk is normal in caliber. There are no filling defects identified in the main, lobar, or segmental pulmonary arteries to indicate pulmonary embolus. Heart: The heart is top normal in size and without pericardial effusion. The coronary arteries are densely calcified. Lungs and pleural spaces: Evaluation of the lung parenchyma is compromised by motion artifact. The trachea and central airways are clear. There is a small left pleural effusion with associated left basilar consolidation. Numerous foci of tree-in-bud nodularity are seen throughout both lungs. There is irregular nodular consolidation are seen throughout both lungs. Similar findings were seen on the 06/16/2018. The largest nodular foci are seen in the right upper lobe on image 121 measuring 13 mm and in the right lower lobe on image #87 measuring 12 mm. Dense airspace consolidation is seen in the left upper lobe is seen along the major fissure on image #130. Mediastinum: There is no mediastinal lymphadenopathy. Caroline: Clear. Axillae: There is no axillary lymphadenopathy. Bony thorax: The skeletal structures are osteopenic. Degenerative change and hyperkyphosis is noted in the thoracic spine. Advanced arthritic change is seen in the shoulders. No lytic or blastic lesions are identified. There is a healed right-sided rib fracture. ABDOMEN AND PELVIS: Liver: The contrast-enhanced liver is cirrhotic in morphology and heterogeneous in attenuation. There is nodularity of the surface contour as well as hypertrophy of the left lobe and caudate. There is no intrahepatic or ductal dilatation. The hepatic veins and portal veins are patent. A 10 mm hypodensity in the right lobe on image #58 has been present dating back to 2010. This is of doubtful significance and may represent a hemangioma. Gallbladder: Surgically absent noting clips in the gallbladder fossa. Spleen: Normal in size and attenuation. Pancreas: Mildly atrophic and grossly unremarkable. Adrenal glands: Unremarkable. Kidneys: The contrast enhanced kidneys demonstrate cortical atrophy and are without hydronephrosis. The kidneys enhance symmetrically. A 1.9 cm cyst is noted in the right kidney. Abdominal vasculature: There is advanced atherosclerotic calcification and mild ectasia of the abdominal aorta. Stomach and bowel: There is a small hiatal hernia. There is moderate colonic diverticulosis without CT evidence of acute diverticulitis. Fecal retention is noted throughout the colon. No bowel obstruction is seen. Duodenal diverticula are noted. The appendix is well-visualized and normal. Peritoneum: There is no intraperitoneal free air or abdominal ascites. Lymphadenopathy: None. Pelvic viscera: The bladder, uterus, and adnexa are normal as visualized. Skeletal structures: The skeletal structures are osteopenic. There is moderate to advanced lumbosacral spondylosis. No lytic or blastic lesions are seen. IMPRESSION: 1. There is no evidence of pulmonary embolus in the main, lobar, or segmental pulmonary arteries. 2. There is a small left pleural effusion with left basilar consolidation. Dense airspace consolidation is also seen in the left upper lobe, and there also numerous foci of patchy tree-in-bud nodularity and inflammatory appearing nodules. The findings suggest acute pneumonia superimposed on a chronic infectious/inflammatory process. Clinical correlation will be required. 3. Nonemergent/outpatient pulmonology follow-up is recommended, as is a repeat CT scan in 3-4 months time for reassessment of several irregular and likely inflammatory pulmonary lesions. 4. No acute infectious or inflammatory findings are identified in the abdomen or pelvis. 5. Cirrhotic liver morphology. 6. Colonic diverticulosis without CT evidence of acute diverticulitis. 7. Additional findings as above. ACT 112: Negative or not required by law. Electronically signed by: Ravi Schwarz M.D. 10/14/2020 4:17 PM Dictated: 10/14/20 1604Transcribed: 10/14/20 1604 XR chest 1V portable, XR KUB/Abdomen 1 view HISTORY: 85 years-old Female Chest Pain . Acute chest and abdominal pain COMPARISON: Chest radiograph 06/16/2018 TECHNIQUE: AP view of the chest with KUB radiograph FINDINGS: CHEST: Asymmetric interstitial opacities of the lateral left lung with chronic interstitial coarsening. The cardiac silhouette is enlarged. No pneumothorax or overt pulmonary edema. Blunting of the left costophrenic angle. Degenerative changes of the shoulders and spine. KUB: Nonobstructive bowel gas pattern. Cholecystectomy. Vascular calcifications. Moderate fecal retention. Renal shadows are obscured by bowel gas. No urolith identified. Advanced degenerative changes of the lumbar spine. IMPRESSION: 1. Asymmetric interstitial opacities of the lateral left lung are suspicious for a nonspecific infectious or inflammatory pneumonitis. 2. Probable trace pleural effusion. 3. Nonobstructive bowel gas pattern. 4. Moderate fecal retention. 5. Cardiomegaly. ACT 112: Negative or not required by law. The above report was generated using voice recognition software. It may contain grammatical, syntax or spelling errors. Electronically signed by: Jose Kee M.D. 10/14/2020 2:26 PM Dictated: 10/14/201422Transcribed: 10/14/201422 XR chest 1V portable, XR KUB/Abdomen 1 view HISTORY: 85 years-old Female Chest Pain . Acute chest and abdominal pain COMPARISON: Chest radiograph 06/16/2018 TECHNIQUE: AP view of the chest with KUB radiograph FINDINGS: CHEST: Asymmetric interstitial opacities of the lateral left lung with chronic interstitial coarsening. The cardiac silhouette is enlarged. No pneumothorax or overt pulmonary edema. Blunting of the left costophrenic angle. Degenerative changes of the shoulders and spine. KUB: Nonobstructive bowel gas pattern. Cholecystectomy. Vascular calcifications. Moderate fecal retention. Renal shadows are obscured by bowel gas. No urolith identified. Advanced degenerative changes of the lumbar spine. IMPRESSION: 1. Asymmetric interstitial opacities of the lateral left lung are suspicious for a nonspecific infectious or inflammatory pneumonitis. 2. Probable trace pleural effusion. 3. Nonobstructive bowel gas pattern. 4. Moderate fecal retention. 5. Cardiomegaly. ACT 112: Negative or not required by law. The above report was generated using voice recognition software. It may contain grammatical, syntax or spelling errors. Electronically signed by: Jose Kee M.D. 10/14/2020 2:26 PM Dictated: 10/14/201422Transcribed: 10/14/201422 Hospital Course (1) Pneumonia: Patient is 85-year-old female with PMH DM II, chronic diastolic heart failure, COPD, HTN, HLD, CAD s/p MELVI to LAD in 2009, CVA, carotid stenosis, CKD III, anxiety, GERD presented to ER with complaint of chest pain. Patient states been having discomfort around left breast and under her left breast with deep breathing for couple weeks however has been worse the past few days. chronic nonproductive cough. Denies known fevers or chills. On admission WBC: 13, lactate WNL, procalcitonin: 0.15, D-dimer: 1230, negative troponin, negative COVID-19 PCR CTA chest showed no evidence of PE. There is a small left pleural effusion with left basilar consolidation. Dense airspace consolidation is also seen in the left upper lobe, and there also numerous foci of patchy tree-in-bud nodularity and inflammatory appearing nodules. Currently on abx with IV doxy and Zosyn Pulmonary on board recommended to de-escalating antibiotic to p.o. Doxy and amoxicillin to complete 5 to 7-day course. Recommended to get a chest x-ray in 2 to 3 weeks to ensure Follow-up CT scan in 3 months with her primary care provider to ensure the airspace opacities have resolved. Speech on board FEES done by speech at bedside showed no swallowing issues Speech recommended minced and moist diet Currently she is on RA Overnight nocturnal pulse oximetry suggested that pt will require oxygen at night Will get a 2 step exercise on discharge (2) Pleural effusion: CT chest showed small left pleural effusion with left basilar consolidation Pleural effusion is too small to drain Pulmonology Follow-up chest x-ray in 2 weeks is indicated to ensure the effusion is not in creasing in size. (3) Chest pain: Atypical chest pain Pain worsening with deep breathing and reproducible in nature Mostly due to the small pleural effusion versus pneumonia Initial troponin negative Continue monitor closely Clinically improved (4) Diabetes mellitus, type 2: A1c: 7.0 on 08/18/2020 Continue to hold continue to hold home oral medicines Basal bolus insulin per protocol Continue monitor BMP (5) Chronic obstructive pulmonary disease: Continue Advair Albuterol neb as needed (6) CKD (chronic kidney disease), stage III: Cr: 1.2. Baseline~1.2 Monitor renal functions, avoid nephrotoxic agents when possible (7) Chronic diastolic heart failure: Continue home Lasix (8) Hypertension: Continue lisinopril, amlodipine, metoprolol tartrate Continue monitor BMP (9) Hyperlipidemia: Continue atorvastatin (10) Ambulatory dysfunction: Continue PT/OT eval Physical and occupational therapist recommended SNF Fall precaution We will need to transition to the SNF section in [facility] (11) CAD (coronary artery disease): S/P MELVI in 2009 Continue isosorbide, aspirin, metoprolol tartrate, atorvastatin (12) Cerebrovascular disease: History CVA Continue aspirin, atorvastatin (13) Anxiety: Continue Cymbalta DVT Prophylaxis -Heparin SQ Total Time Total Time Spent Total Time Spent (In Minutes): 35 minutes Discharge Plan Discharge Items Patient Disposition[facility] Reason For Visit: PNA Discharge Diagnosis: Pneumonia: Pleural effusion: Diabetes mellitus, type 2: Chronic obstructive pulmonary disease: CKD (chronic kidney disease), stage III: Chronic diastolic heart failure: Hypertension: Hyperlipidemia: Ambulatory dysfunction: CAD (coronary artery disease): Cerebrovascular disease: Activity: Resume your previous activity Non-emergency contact: Primary Care Provider Call non-emergency contact if: you have any medication questions Follow-up/Referrals: Dena Aquino MD [Primary Care Provider] - Diet: Carb Consistent or DM2 and Heart Healthy Addtl Attending Provider Instructions: Follow up with primary care provider at [facility] Complete the course of the antibiotics You will need a repeat Chest XRay in 2 weeks is indicated to ensure the effusion is not increasing in size. (Your primary care can order it) You will need a follow-up chest CT scan in 3 months to ensure the airspace opacities have resolved. (Your primary care provider can order it) Continue oxygen supplement with 2 Liter nasal canula at night Continue oxygen supplement at rest or with activity you will need a 2 step exercise before discharge from [facility] to access your oxygen level at rest and ambulation Continue physical and occupational therapy Fall and aspiration precaution Speech therapy recommended minced and moist diet Continue monitor your blood sugar Continue monitor your blood pressure Pending Studies at Discharge: No Stand-Alone Forms: My [facility] [address] Skilled Items Patient informed of condition?: Yes DNR: Yes Discharge Level of Care: Skilled Communicable Disease: No Discharge Prognosis: Stable Lines: None Urinary Catheter: No Medications and DC Order Prescriptions: New doxycycline hyclate 100 mg Capsule 100 mg PO BID Qty: 5 RF: 0 amoxicillin 500 mg Capsule 500 mg PO BID@1000,2200 Qty: 5 RF: 0 benzonatate [Tessalon Perles] 100 mg Capsule 100 mg PO TID Qty: 15 RF: 0 Continued amlodipine [Norvasc] 10 mg tablet 10 mg PO QAM RF: 0 docusate sodium [Colace] 100 mg capsule 100 mg PO BID RF: 0 gabapentin 300 mg capsule 300 mg PO AMPM RF: 0 montelukast [Singulair] 10 mg tablet 10 mg PO HS RF: 0 isosorbide mononitrate 60 mg tablet extended release 24 hr 60 mg PO QAM RF: 0 furosemide 20 mg tablet 20 mg PO QAM RF: 0 tramadol 50 mg tablet 50 mg PO AMPM RF: 0 nitroglycerin 0.4 mg tablet, sublingual 0.4 mg SL Q5M PRN (Reason: Chest Pain) RF: 0 aspirin 81 mg Tablet,Delayed Release (Dr/Ec) 81 mg PO BID RF: 0 duloxetine [Cymbalta] 60 mg capsule,delayed release(DR/EC) 60 mg PO QAM RF: 0 melatonin 5 mg tablet 10 mg PO HS RF: 0 fluticasone propion-salmeterol [Advair Diskus] 250-50 mcg/dose blister with device 1 inh INHALATION BID RF: 0 cetirizine 10 mg Tablet 10 mg PO QDL RF: 0 acetaminophen 500 mg tablet 500 mg PO BID RF: 0 metoprolol tartrate 50 mg tablet 50 mg PO BIDM RF: 0 losartan 50 mg Tablet 50 mg PO QAM RF: 0 atorvastatin 40 mg Tablet 40 mg PO HS RF: 0 buspirone 5 mg Tablet 5 mg PO BID RF: 0 omeprazole 40 mg Capsule,Delayed Release(Dr/Ec) 40 mg PO QAM RF: 0 meclizine 25 mg Tablet 25 mg PO BID PRN (Reason: Vertigo) RF: 0 Cerovite Senior Tablet 1 tab PO DAILY RF: 0 metformin 500 mg tablet 1,000 mg PO DAILY RF: 0 vitamin B complex-folic acid [Balance B-50 (with folic acid)] 0.4 mg tablet 1 tab PO .DAILY AT NOON RF: 0 calcium carbonate-vitamin D3 [Oyster Shell Calcium-Vit D3] 500 mg(1,250mg) - 200 unit tablet 1 tab PO QDL RF: 0 oxybutynin chloride 10 mg tablet extended release 24hr 10 mg PO DAILY RF: 0 No Action acetaminophen 325 mg Tablet 650 mg PO QID MDD 3g PRN (Reason: Fever Or Pain) RF: 0 menthol-zinc oxide [Calmoseptine] 0.44-20.6 % Ointment 1 applic TOPICAL QS RF: 0 nystatin 100,000 unit/gram Powder 1 applic TOPICAL BID RF: 0 Discharge Orders: Discharge Order (Routine); Ordered 10/20/20 Ordered By: Trina Turner Admission Data Admit Date/Time: 10/14/20 18:08 Attending Provider: Trina Turner Admit Provider: Eran Olvera Primary Care Provider: Dena Aquino Other Providers: Eran Olvera ; Omar Katz ; Garcia Lira Other Interventions: Discharge Summary Assessment (RN) Last Done: 10/20/20 11:20
== END 2020-10-20 16:19 | DRG 194 ==
LOC: ED 13:38 → SUATTDRO 18:08 → 2N 18:08
DX: Z88.1 Allergy status to other antibiotic agents; I25.10 Atherosclerotic heart disease of native coronary artery without angina pectoris; M19.90 Unspecified osteoarthritis, unspecified site; I25.2 Old myocardial infarction; R26.89 Other abnormalities of gait and mobility; I50.32 Chronic diastolic (congestive) heart failure; Z95.5 Presence of coronary angioplasty implant and graft; E11.40 Type 2 diabetes mellitus with diabetic neuropathy, unspecified; E11.22 Type 2 diabetes mellitus with diabetic chronic kidney disease; K21.9 Gastro-esophageal reflux disease without esophagitis; I87.2 Venous insufficiency (chronic) (peripheral); J45.909 Unspecified asthma, uncomplicated; I13.0 Hypertensive heart and chronic kidney disease with heart failure and stage 1 through stage 4 chronic kidney disease, or unspecified chronic kidney disease; Z79.84 Long term (current) use of oral hypoglycemic drugs; J18.9 Pneumonia, unspecified organism; Z88.8 Allergy status to other drugs, medicaments and biological substances; Z88.6 Allergy status to analgesic agent; J44.9 Chronic obstructive pulmonary disease, unspecified; Z79.82 Long term (current) use of aspirin; Z88.5 Allergy status to narcotic agent; N18.30 Chronic kidney disease, stage 3 unspecified; Z86.73 Personal history of transient ischemic attack (TIA), and cerebral infarction without residual deficits; F41.9 Anxiety disorder, unspecified; Z79.899 Other long term (current) drug therapy; E78.5 Hyperlipidemia, unspecified

== ENCOUNTER 2020-10-21 02:50 | Observation (INO) ==
[2020-10-21] MEDS ORDERED: ACETAMINOPHEN 1,000 MG/100 ML VIAL IV STA (03:09)
[2020-10-21] MEDS ORDERED: LEVALBUTEROL HCL 1.25 MG/3 ML NEB NEB STA ×2 (03:11→05:57)
[2020-10-21 03:30] LABS: Basophils # (auto) 0.02 K/uL (0-0.2); Basophils % (auto) 0.2 %; Eosinophils # (auto) 0.47 K/uL (0-0.5); Eosinophils % (auto) 4.9 %; Hematocrit (blood only) 29.5 % (37-47); Hemoglobin 9.2 g/dL (12.0-16.0); Immature Granulocytes # (auto) 0.06 K/uL (0.00-0.02); Immature Granulocytes % (auto) 0.6 %; Lymphocytes # (auto) 2.45 K/uL (1.2-3.4); Lymphocytes % (auto) 25.8 %; Mean Corpuscular Hemoglobin 27.9 pg (25-34); Mean Corpuscular Hgb Conc 31.2 g/dL (32-36); Mean Corpuscular Volume 89.4 fL (80-100); Mean Platelet Volume 10.8 fL (7.4-10.4); Monocytes # (auto) 0.84 K/uL (0.11-0.59); Monocytes % (auto) 8.8 %; Neutrophils # (auto) 5.66 K/uL (1.4-6.5); Neutrophils % (auto) 59.7 %; Platelet Count 183 K/uL (130-400); RDW Coefficient of Variation 15.3 % (11.5-14.5); RDW Standard Deviation 49.7 fL (36.4-46.3)
--- NOTE | 2020-10-21 03:35 | Emergency Department Note ---
Impression & Plan Hypoxia, Pneumonia ED Provider Note NAME: ASHLI WRIGHT AGE: 85 SEX: F : 1935 ARRIVES VIA: Ambulance INFORMANT: Patient, EMS ED PROVIDER(S): Sharif Bran MD CHIEF COMPLAINT: Chest pain HPI: This is an 85-year-old female [facility] over concerns of the patient is hypoxic. Upon arrival to the emergency department patient has numerous complaints she is complaining of chest pain as well as shortness of breath. She has not taken anything for the pain prior to arrival. EMS reports that they gave the patient oxygen which the patient reports does not seem to be helping. She describes the pain as an aching sensation with radiation into her back. She reports nothing makes the pain better or worse. ROS: See above HPI for pertinent positives & negatives. A total of 10 systems reviewed and were otherwise negative. PAST MEDICAL HISTORY: See Below PAST SURGICAL HISTORY: See Below FAMILY HISTORY: See Below SOCIAL HISTORY: See Below HOME MEDICATIONS: See Below ALLERGIES: See Below VITALS: See Below PHYSICAL EXAMINATION: VITAL SIGNS - Vital signs and nursing notes were reviewed. GENERAL - 85-year-old female appearing stated age who is in no acute distress. Communicates well with provider and answers questions appropriately. SKIN - Without rashes. HEAD - NC/AT. EYES - PERRL with EOMI bilaterally. Sclera anicteric. Palpebral conjunctiva pink and moist with no injection noted. EARS - No deformities of external structures noted on gross examination bilaterally. NOSE - Midline and without cyanosis. No epistaxis or purulent drainage noted. S eptum midline without deviation or septal hematoma noted. MOUTH/OROPHARYNX - Without perioral cyanosis. Buccal mucosa pink and moist and without leukoplakia. Tongue midline with equal elevation of palate bilaterally. No tonsillar hypertrophy, erythema, or exudates noted. NECK - Neck with FROM. Supple to palpation. LUNGS - Chest wall symmetric without accessory muscle use, intercostals retractions, or central cyanosis. Normal vesicular breath sounds CTA B/L. No wheezes, rales, or rhonchi appreciated. CARDIAC - RRR with S1/S2. No murmur, rubs, or gallops appreciated. ABDOMEN - Abdominal contour without pulsations or visible masses. BS normoactive all four quadrants. No tenderness, palpable masses, hepatosplenomegaly, or ascites noted. EXTREMITIES - No clubbing or peripheral cyanosis. No pretibial edema present. +3/5 radial, posterior tibial, and dorsalis pedis pulses palpated throughout. +5/5 strength noted in UE/LE bilaterally. NEUROLOGIC - Cranial nerves II through XII grossly intact. Sensory intact to light touch throughout. Patellar reflexes +2/4. PSYCH - A&Ox3 and cooperates fully with examiner. Pt is very pleasant and interacts well with examiner. MEDICAL DECISION MAKING: Patient was seen and evaluated as above in room C7. Review was performed of nursing notes and vital signs. I did review pertinent previous visits and patient history. After obtaining a thorough history and physical examination the above work up was performed. This an 85-year-old female who presents emergency department complaining of chest pain. The patient is hypoxic. Using shared medical decision making with the patient she was sent for CAT scan of the chest this confirms patient continues to have pneumonia. As she is requiring oxygen here she was started on broad-spectrum antibiotics and given breathing treatments. I did discuss the case with the hospitalist service who did agree to meet the patient. Patient does not have an elevation in her troponin has a normal white blood cell count. CAT scan was interpreted by me is concerning for multifocal pneumonia. Patient's Covid test is negative An order was placed for continuous cardiac monitoring. The monitor shows a rate of 76 with Normal Sinus rhythm. The patient was evaluated during a period of high volume and high acuity during the global COVID-19 pandemic, and that diagnosis was suspected/considered upon their initial presentation. Their evaluation, treatment and testing was consistent with current guidelines for patients who present with complaints or symptoms that may be related to COVID-19. Patient was seen while provider was wearing PPE. Triage Nursing notes reviewed. Prior medical records reviewed Vital Signs: reviewed and remarkable for no significant abnormalities Differential diagnosis: Cardiac ischemia, aortic dissection, pulmonary embolism, pneumothorax, pneumonia, pericarditis, myocarditis, esophageal rupture, GERD, cholecystitis, pancreatitis, musculoskeletal, as well as other pathologies. ER treatment provided: See below Diagnostics interpreted by me: ECG: Normal sinus rhythm normal EKG no ST elevation or depression QTC is 460 ventricular rate is [address] elevation or depression EKG is compared to 10/14/2020 no significant change was found. Laboratory studies: As stated above and show below. Imaging studies: See below Consultation(s): Internal Medicine Past Med/Surg History Medical History (Updated 10/25/20 @ 17:09 by Sharif Bran MD) Ambulatory dysfunction Anxiety Anxiety (02/04/11) Arteriosclerotic coronary artery disease (02/04/11) Arthritis Asthma Carotid stenosis Cerebrovascular disease Chronic diastolic heart failure Degenerative disc disease Diabetic neuropathy Diverticulosis (02/04/11) GERD (gastroesophageal reflux disease) Hyperlipidemia Hypertension Morbid obesity with BMI of 45.0-49.9, adult (02/04/11) Myocardial Infarction OVER 10 YEARS AGO Peripheral edema Pneumonia Pressure sore ON COCCYX (FROM SITTING) Restless leg syndrome Unsteady gait when walking Urinary incontinence Venous insufficiency Surgical History History of anesthesia reaction SLOW TO WAKE UP History of cataract surgery History of colonoscopy History of esophagogastroduodenoscopy (EGD) History of heart artery stent OVER 10 YEARS AGO/1 STENT (FOLLOWS DR. NARAYANAN) History of tooth extraction Hx laparoscopic cholecystectomy Hx of tubal ligation Family History Other Adopted Cancer Social History Smoking Status: Never smoker Second Hand Exposure: No; Hx Alcohol Use: No Hx Substance Use: No Preferred Language: Korean Communication Ability: Effective Hoister Required: No Beliefs That Will Affect Care: None marital status: / marital status details: dmitriy Current Living Situation: Personal Care Facility Current Living Situation Comment: [facility] current occupational status: retired Feels Safe at Home: Yes Assistive Devices: Oxygen - Continuous Allergies Allergies Allergy/AdvReac Type Severity Reaction Status Date / Time azelastine Allergy Intermediate elevated bp Verified 10/21/20 03:14 trospium Allergy Intermediate hives Verified 10/21/20 03:14 azithromycin Allergy Mild Rash Verified 10/21/20 03:14 citalopram Allergy Unknown UNKNOWN Verified 10/21/20 03:14 chlorpheniramine AdvReac Intermediate ELEVATED BP Verified 10/21/20 03:14 Corticosteroids AdvReac Intermediate ELEVATED BP Verified 10/21/20 03:14 (Glucocorticoids) fexofenadine AdvReac Intermediate ELEVATED BP Verified 10/21/20 03:14 fluticasone AdvReac Intermediate ELEVATED BP Verified 10/21/20 03:14 hydrocodone AdvReac Intermediate ELEVATED BP Verified 10/21/20 03:14 magnesium salicylate AdvReac Intermediate ELEVATED BP Verified 10/21/20 03:14 salicylates AdvReac Intermediate ELEVATED BP Verified 10/21/20 03:14 Home Meds Home Medications Medication Instructions Recorded Confirmed amlodipine 10 mg tablet (Norvasc) 10 mg PO QAM 11/28/17 10/21/20 docusate sodium 100 mg capsule 100 mg PO BID cap 11/28/17 10/21/20 (Colace) gabapentin 300 mg capsule 300 mg PO AMPM 11/28/17 10/21/20 montelukast 10 mg tablet 10 mg PO HS 11/28/17 10/21/20 (Singulair) aspirin 81 mg tablet,delayed 81 mg PO BID 06/16/18 10/21/20 release duloxetine 60 mg capsule,delayed 60 mg PO QAM 06/16/18 10/21/20 release (Cymbalta) furosemide 20 mg tablet 20 mg PO QAM 12/26/18 10/21/20 isosorbide mononitrate 60 mg 60 mg PO QAM 12/26/18 10/21/20 tablet,extended release 24 hr melatonin 5 mg tablet 10 mg PO HS tab 12/26/18 10/21/20 nitroglycerin 0.4 mg sublingual 0.4 mg SL Q5M PRN 12/26/18 10/21/20 tablet tramadol 50 mg tablet 50 mg PO AMPM 12/26/18 10/21/20 acetaminophen 500 mg tablet 500 mg PO BID 09/16/19 10/21/20 cetirizine 10 mg tablet 10 mg PO QDL 09/16/19 10/21/20 fluticasone 250 mcg-salmeterol 50 1 inh INHALATION BID 09/16/19 10/21/20 mcg/dose blistr powdr for inhalation (Advair Diskus) metoprolol tartrate 50 mg tablet 50 mg PO BIDM 09/16/19 10/21/20 atorvastatin 40 mg tablet 40 mg PO HS 12/23/19 10/21/20 buspirone 5 mg tablet 5 mg PO BID 12/23/19 10/21/20 losartan 50 mg tablet 50 mg PO QAM 12/23/19 10/21/20 meclizine 25 mg tablet 25 mg PO BID PRN 12/23/19 10/21/20 fwuhgttqjian-veziuowc-ieoqnm 1 tab PO DAILY 12/23/19 10/21/20 tablet (Cerovite Senior) omeprazole 40 mg capsule,delayed 40 mg PO QAM 12/23/19 10/21/20 release calcium carbonate 500 mg (1,250 1 tab PO QDL 10/14/20 10/21/20 mg)-vitamin D3 200 unit tablet (Oyster Shell Calcium-Vit D3) metformin 500 mg tablet 1,000 mg PO DAILY 10/14/20 10/21/20 oxybutynin chloride 10 mg 10 mg PO DAILY 10/14/20 10/21/20 tablet,extended release 24 hr vitamin B complex-folic acid 0.4 1 tab PO .DAILY AT NOON 10/14/20 10/21/20 mg tablet (Balance B-50 (with folic acid)) acetaminophen 325 mg tablet 650 mg PO QID PRN MDD 3g 10/21/20 10/21/20 menthol 0.44 %-zinc oxide 20.6 % 1 applic TOPICAL QS 10/21/20 10/21/20 topical ointment (Calmoseptine) nystatin 100,000 unit/gram topical 1 applic TOPICAL BID 10/21/20 10/21/20 powder Previous Rx's Medication Instructions Recorded benzonatate 100 mg capsule 100 mg PO TID #15 cap 10/20/20 (Daniel Contreras) Results & Data (ED) Vital Signs Vital Signs - 24 hr 10/21/20 02:59 10/21/20 03:30 Temperature 37.1 C Temperature Source Oral Pulse Rate 82 Respiratory Rate 18 Respiratory Effort / Characteristics Non-Labored Spontaneous Respiratory Depth Normal Respiratory Pattern Regular Blood Pressure 185/79 H Blood Pressure Mean 114 Pulse Oximetry 98 97 Oxygen Delivery Method Nasal Cannula Room Air Oxygen Flow Rate 2 Sepsis Recent Fever Within 48 Hours No Sepsis New/Unexplained Change in Mental Status No Sepsis Action Taken by Nursing No Action Required Home Medications Current Medication List: was personally reviewed by me Laboratory Data Attestation: I reviewed the patient's lab results. Result diagrams: 10/22/20 05:58 10/22/20 05:58 Lab Results 10/21/20 10/21/20 10/21/20 Range/Units 02:55 02:55 02:55 WBC 9.50 (4.8-10.8) K/uL RBC 3.30 L (4.2-5.4) M/uL Hgb 9.2 L (12.0-16.0) g/dL Hct 29.5 L (37-47) % MCV 89.4 (80-100) fL MCH 27.9 (25-34) pg MCHC 31.2 L (32-36) g/dL RDW Std Deviation 49.7 H (36.4-46.3) fL RDW Coeff of Rakesh 15.3 H (11.5-14.5) % Plt Count 183 (130-400) K/uL MPV 10.8 H (7.4-10.4) fL Immature Gran % (Auto) 0.6 % Neut % (Auto) 59.7 % Lymph % (Auto) 25.8 % [place] % (Auto) 8.8 % Eos % (Auto) 4.9 % Baso % (Auto) 0.2 % Neut # (Auto) 5.66 (1.4-6.5) K/uL Lymph # (Auto) 2.45 (1.2-3.4) K/uL [place] # (Auto) 0.84 H (0.11-0.59) K/uL Eos # (Auto) 0.47 (0-0.5) K/uL Baso # (Auto) 0.02 (0-0.2) K/uL Immature Gran # (Auto) 0.06 H (0.00-0.02) K/uL APTT 25.3 (21.0-31.0) Seconds PTT Ratio 1.0 Sodium 139 (136-145) mmol/L Potassium 4.3 (3.5-5.1) mmol/L Chloride 111 H (98-107) mmol/L Carbon Dioxide 29 (21-32) mmol/L Anion Gap -1.0 L (3-11) BUN 33 H (7-18) mg/dl Creatinine 1.06 (0.6-1.2) mg/dl Est Cr Clr Drug Dosing 43.9 ml/min Est GFR ( Amer) 56.2 ml/min Est GFR (Non-Af Amer) 48.5 ml/min BUN/Creatinine Ratio 31.2 H (10-20) Glucose 125 H (70-99) mg/dl Calcium 8.4 L (8.5-10.1) mg/dl Total Bilirubin 0.3 (0.2-1) mg/dl AST 37 (15-37) U/L ALT 36 (12-78) U/L Alkaline Phosphatase 82 (45-117) U/L Total Creatine Kinase 71 (26-192) U/L CK-MB (CK-2) 1.2 (0.5-3.6) ng/ml CK/CKMB % Calc 1.7 (0-3.0) Troponin I < 0.015 (0-0.045) ng/ml Total Protein 6.8 (6.4-8.2) gm/dl Albumin 2.6 L (3.4-5.0) gm/dl Globulin 4.2 H (2.5-4.0) gm/dl Albumin/Globulin Ratio 0.6 L (0.9-2) Lipase 150 (73-393) U/L COVID-19 Eval Order SARS-CoV-2 (PCR) (Negative) 10/21/20 10/21/20 Range/Units 03:10 03:10 WBC (4.8-10.8) K/uL RBC (4.2-5.4) M/uL Hgb (12.0-16.0) g/dL Hct (37-47) % MCV (80-100) fL MCH (25-34) pg MCHC (32-36) g/dL RDW Std Deviation (36.4-46.3) fL RDW Coeff of Rakesh (11.5-14.5) % Plt Count (130-400) K/uL MPV (7.4-10.4) fL Immature Gran % (Auto) % Neut % (Auto) % Lymph % (Auto) % [place] % (Auto) % Eos % (Auto) % Baso % (Auto) % Neut # (Auto) (1.4-6.5) K/uL Lymph # (Auto) (1.2-3.4) K/uL [place] # (Auto) (0.11-0.59) K/uL Eos # (Auto) (0-0.5) K/uL Baso # (Auto) (0-0.2) K/uL Immature Gran # (Auto) (0.00-0.02) K/uL APTT (21.0-31.0) Seconds PTT Ratio Sodium (136-145) mmol/L Potassium (3.5-5.1) mmol/L Chloride (98-107) mmol/L Carbon Dioxide (21-32) mmol/L Anion Gap (3-11) BUN (7-18) mg/dl Creatinine (0.6-1.2) mg/dl Est Cr Clr Drug Dosing ml/min Est GFR ( Amer) ml/min Est GFR (Non-Af Amer) ml/min BUN/Creatinine Ratio (10-20) Glucose (70-99) mg/dl Calcium (8.5-10.1) mg/dl Total Bilirubin (0.2-1) mg/dl AST (15-37) U/L ALT (12-78) U/L Alkaline Phosphatase (45-117) U/L Total Creatine Kinase (26-192) U/L CK-MB (CK-2) (0.5-3.6) ng/ml CK/CKMB % Calc (0-3.0) Troponin I (0-0.045) ng/ml Total Protein (6.4-8.2) gm/dl Albumin (3.4-5.0) gm/dl Globulin (2.5-4.0) gm/dl Albumin/Globulin Ratio (0.9-2) Lipase (73-393) U/L COVID-19 Eval Order Covid19 at [facility] SARS-CoV-2 (PCR) NEGATIVE (Negative) Administered Medications Discontinued Medications Acetaminophen (Acetaminophen 500 Mg Tab) 500 mg PO BID@1200,2100 [facility] Stop: 11/20/20 11:59 Last Admin: 10/22/20 11:48 Dose: 500 mg Documented by: [id number] Cosigned by: [id number] Admin: 10/21/20 21:02 Dose: 500 mg Documented by: [id number] Admin: 10/21/20 11:16 Dose: 500 mg Documented by: [id number] Amlodipine Besylate (Amlodipine Besylate 5 Mg Tab) 10 mg PO QAM [facility] Stop: 11/20/20 10:14 Last Admin: 10/22/20 09:01 Dose: 10 mg Documented by: [id number] Cosigned by: [id number] Admin: 10/21/20 11:17 Dose: 10 mg Documented by: [id number] Amoxicillin (Amoxicillin 500 Mg Cap) 500 mg PO BIDM [facility]; Protocol Stop: 10/28/20 12:29 Last Admin: 10/22/20 09:27 Dose: 500 mg Documented by: [id number] Cosigned by: [id number] Admin: 10/21/20 17:01 Dose: 500 mg Documented by: [id number] Admin: 10/21/20 14:04 Dose: 500 mg Documented by: [id number] Aspirin (Aspirin 81 Mg Ectab) 81 mg PO BID [facility] Stop: 11/20/20 10:14 Last Admin: 10/22/20 09:02 Dose: 81 mg Documented by: [id number] Cosigned by: [id number] Admin: 10/21/20 21:01 Dose: 81 mg Documented by: [id number] Admin: 10/21/20 11:17 Dose: 81 mg Documented by: [id number] Atorvastatin Calcium (Atorvastatin 40 Mg Tab) 40 mg PO HS [facility] Stop: 11/20/20 20:59 Last Admin: 10/21/20 21:01 Dose: 40 mg Documented by: [id number] Benzonatate (Benzonatate 100 Mg Capsule) 100 mg PO TID [facility] Stop: 11/20/20 10:14 Last Admin: 10/22/20 09:37 Dose: 100 mg Documented by: [id number] Cosigned by: [id number] Admin: 10/21/20 21:05 Dose: 100 mg Documented by: [id number] Admin: 10/21/20 14:04 Dose: 100 mg Documented by: [id number] Admin: 10/21/20 11:23 Dose: 100 mg Documented by: [id number] Buspirone HCl (Buspirone 5 Mg Tab) 5 mg PO BID [facility] Stop: 11/20/20 10:14 Last Admin: 10/22/20 09:38 Dose: 5 mg Documented by: [id number] Cosigned by: [id number] Admin: 10/21/20 21:01 Dose: 5 mg Documented by: [id number] Admin: 10/21/20 11:17 Dose: 5 mg Documented by: [id number] Calamine/Phenol (Menthol-Zinc Oxide 360 Appln/120 Gm Tube) 1 appln EXT QS [facility] Stop: 11/03/20 23:59 Last Admin: 10/22/20 09:26 Dose: 1 appln Documented by: [id number] Cosigned by: [id number] Admin: 10/21/20 23:14 Dose: 1 appln Documented by: [id number] Admin: 10/21/20 17:00 Dose: 1 appln Documented by: [id number] Admin: 10/21/20 11:20 Dose: 1 appln Documented by: [id number] Cetirizine HCl (Cetirizine Hcl 10 Mg Tablet) 10 mg PO QDL [facility] Stop: 11/20/20 11:29 Last Admin: 10/22/20 11:46 Dose: 10 mg Documented by: [id number] Cosigned by: [id number] Admin: 10/21/20 11:17 Dose: 10 mg Documented by: [id number] Docusate Sodium (Docusate Sodium 100 Mg Cap) 100 mg PO BID [facility] Stop: 11/20/20 10:14 Last Admin: 10/22/20 09:39 Dose: 100 mg Documented by: [id number] Cosigned by: [id number] Admin: 10/21/20 21:02 Dose: 100 mg Documented by: [id number] Admin: 10/21/20 11:17 Dose: 100 mg Documented by: [id number] Doxycycline Hyclate (Doxycycline Hyclate 100 Mg Cap) 100 mg PO BID [facility]; Protocol Stop: 10/28/20 12:29 Last Admin: 10/22/20 09:39 Dose: 100 mg Documented by: [id number] Cosigned by: [id number] Admin: 10/21/20 21:03 Dose: 100 mg Documented by: [id number] Admin: 10/21/20 14:05 Dose: 100 mg Documented by: [id number] Duloxetine HCl (Duloxetine Hcl 60 Mg Cap) 60 mg PO QAM [facility] Stop: 11/20/20 10:29 Last Admin: 10/22/20 09:41 Dose: 60 mg Documented by: [id number] Cosigned by: [id number] Admin: 10/21/20 11:17 Dose: 60 mg Documented by: [id number] Enoxaparin Sodium (Enoxaparin Inj 40 Mg/0.4 Ml Syr) 40 mg SQ Q12H [facility] Stop: 11/20/20 10:29 Last Admin: 10/22/20 09:46 Dose: 40 mg Documented by: [id number] Cosigned by: [id number] Admin: 10/21/20 21:05 Dose: 40 mg Documented by: [id number] Admin: 10/21/20 11:20 Dose: 40 mg Documented by: [id number] Fluticasone/Vilanterol (Fluticasone/Vilanterol 200/25mcg 14 Puffs/Inhaler) 1 puffs INH DAILY [facility]; Protocol Stop: 11/20/20 10:29 Last Admin: 10/22/20 09:42 Dose: 1 puffs Documented by: [id number] Cosigned by: [id number] Admin: 10/21/20 11:20 Dose: 1 puffs Documented by: [id number] Furosemide (Furosemide 20 Mg Tab) 20 mg PO QAM [facility] Stop: 11/20/20 10:29 Last Admin: 10/22/20 09:03 Dose: 20 mg Documented by: [id number] Cosigned by: [id number] Admin: 10/21/20 11:19 Dose: 20 mg Documented by: [id number] Gabapentin (Gabapentin 300 Mg Cap) 300 mg PO BID [facility] Stop: 11/20/20 10:29 Last Admin: 10/22/20 09:04 Dose: 300 mg Documented by: [id number] Cosigned by: [id number] Admin: 10/21/20 21:02 Dose: 300 mg Documented by: [id number] Admin: 10/21/20 11:18 Dose: 300 mg Documented by: [id number] Acetaminophen (Ofirmev) 1,000 mg in 100 mls @ 400 mls/hr IV NOW STA Stop: 10/21/20 03:23 Last Infusion: 10/21/20 03:43 Dose: 0 mls/hr Documented by: [id number] Admin: 10/21/20 03:18 Dose: 400 mls/hr Documented by: [id number] Piperacillin Sod/Tazobactam Sod (Zosyn) 4.5 gm in 120 mls @ 240 mls/hr IV NOW ONE Stop: 10/21/20 06:44 Last Infusion: 10/21/20 07:15 Dose: 0 mls/hr Documented by: [id number] Infusion: 10/21/20 07:15 Dose: 0 mls/hr Documented by: [id number] Admin: 10/21/20 06:52 Dose: 240 mls/hr Documented by: [id number] Levofloxacin/Dextrose (Levaquin/D5w) 750 mg in 150 mls @ 100 mls/hr IV NOW STA Stop: 10/21/20 07:44 Last Infusion: 08/18/21 08:56 Dose: 0 mls/hr Documented by: [id number] Admin: 10/21/20 07:15 Dose: 100 mls/hr Documented by: [id number] Sodium Chloride (Nss 1000ml) 1,000 mls @ 80 mls/hr IV .[id number] [facility] Stop: 10/21/20 22:44 Last Infusion: 10/21/20 22:59 Dose: 0 mls/hr Documented by: [id number] Admin: 10/21/20 10:19 Dose: 80 mls/hr Documented by: [id number] Insulin Aspart (Insulin Aspart 100 Units/Ml 3 Ml Pen) 0 units SC ACHS [facility] Stop: 11/20/20 11:29 Last Admin: 10/22/20 12:45 Dose: 1 units Documented by: [id number] Cosigned by: [id number] Admin: 10/22/20 09:22 Dose: Not Given Documented by: [id number] Cosigned by: [id number] Admin: 10/21/20 21:00 Dose: Not Given Documented by: [id number] Admin: 10/21/20 16:59 Dose: 3 units Documented by: [id number] Cosigned by: [id number] Admin: 10/21/20 12:25 Dose: 4 units Documented by: [id number] Cosigned by: [id number] Ioversol (Optiray 320 125ml) 125 ml IV ONCE ONE Stop: 10/21/20 04:24 Last Admin: 10/21/20 04:23 Dose: 119 ml Documented by: [id number] Isosorbide Mononitrate (Isosorbide [place] Extended Rel 60 Mg Tabcr) 60 mg PO QAM [facility] Stop: 11/20/20 10:29 Last Admin: 10/22/20 09:05 Dose: 60 mg Documented by: [id number] Cosigned by: [id number] Admin: 10/21/20 11:19 Dose: 60 mg Documented by: [id number] Levalbuterol HCl (Levalbuterol Hcl 1.25 Mg/3 Ml Neb) 1.25 mg NEB NOW STA Stop: 10/21/20 03:12 Last Admin: 10/21/20 03:39 Dose: 1.25 mg Documented by: [id number] Levalbuterol HCl (Levalbuterol Hcl 1.25 Mg/3 Ml Neb) 1.25 mg NEB NOW STA Stop: 10/21/20 05:58 Last Admin: 10/21/20 06:21 Dose: 1.25 mg Documented by: [id number] Losartan Potassium (Losartan Potassium 50 Mg Tab) 50 mg PO QAM [facility] Stop: 11/20/20 10:29 Last Admin: 10/22/20 09:06 Dose: 50 mg Documented by: [id number] Cosigned by: [id number] Admin: 10/21/20 11:19 Dose: 50 mg Documented by: [id number] Melatonin (Melatonin 3 Mg Tab) 9 mg PO [facility]; Protocol Stop: 11/20/20 20:59 Last Admin: 10/21/20 21:05 Dose: 9 mg Documented by: [id number] Methylprednisolone (Methylprednisolone 125 Mg/2 Ml Vial) 60 mg IV NOW [facility] Stop: 10/21/20 05:58 Last Admin: 10/21/20 06:13 Dose: 60 mg Documented by: [id number] Metoprolol Tartrate (Metoprolol Tartrate 50 Mg Tab) 50 mg PO BIDM [facility] Stop: 11/20/20 10:29 Last Admin: 10/22/20 08:59 Dose: 50 mg Documented by: [id number] Cosigned by: [id number] Admin: 10/21/20 17:01 Dose: 50 mg Documented by: [id number] Admin: 10/21/20 11:19 Dose: 50 mg Documented by: [id number] Miscellaneous Information (Consult Pharmacy) 1 ea N/A NOW [facility] Stop: 10/21/20 07:01 Last Admin: 10/21/20 10:19 Dose: Not Given Documented by: [id number] Montelukast Sodium (Montelukast Sodium 10 Mg Tablet) 10 mg PO [facility] Stop: 11/20/20 20:59 Last Admin: 10/21/20 21:03 Dose: 10 mg Documented by: [id number] Multivitamins/Minerals (Calcium 600mg + Vit D 400 Iu Tab) 1 tab PO QDL [facility] Stop: 11/20/20 11:29 Last Admin: 10/22/20 11:45 Dose: 1 tab Documented by: [id number] Cosigned by: [id number] Admin: 10/21/20 11:16 Dose: 1 tab Documented by: [id number] Multivitamins/Minerals (Cerovite Adv Formula Tab) 1 tab PO DAILY@1130 [facility] Stop: 11/21/20 11:29 Last Admin: 10/22/20 11:47 Dose: 1 tab Documented by: [id number] Cosigned by: [id number] Nystatin (Nystatin Powder 15gm Btl) 1 appln EXT BID [facility] Stop: 11/20/20 10:14 Last Admin: 10/22/20 09:44 Dose: 1 appln Documented by: [id number] Cosigned by: [id number] Admin: 10/21/20 21:03 Dose: 1 appln Documented by: [id number] Admin: 10/21/20 11:20 Dose: 1 appln Documented by: [id number] Oxybutynin Chloride (Oxybutynin Chloride Xl 5 Mg Tabcr) 10 mg PO DAILY [facility] Stop: 11/20/20 10:29 Last Admin: 10/22/20 09:44 Dose: 10 mg Documented by: [id number] Cosigned by: [id number] Admin: 10/21/20 11:18 Dose: 10 mg Documented by: [id number] Pantoprazole Sodium (P[facility]oprazole 40 Mg Tab) [facility] [place]: 11/20/20 10:29 Last Admin: 10/22/20 09:45 Dose: 40 mg Documented by: [id number] Cosigned by: [id number] Admin: 10/21/20 11:18 Dose: 40 mg Documented by: [id number] Tramadol HCl (Tramadol Hcl 50 Mg Tablet) 50 mg PO BID [facility] Stop: 11/20/20 10:29 Last Admin: 10/22/20 09:07 Dose: 50 mg Documented by: [id number] Cosigned by: [id number] Admin: 10/21/20 21:05 Dose: 50 mg Documented by: [id number] Admin: 10/21/20 11:23 Dose: 50 mg Documented by: [id number] Vitamin B Complex (Vitamin B Complex Tab) 1 tab PO DAILY@1200 [facility] Stop: 11/20/20 11:59 Last Admin: 10/22/20 11:48 Dose: 1 tab Documented by: [id number] Cosigned by: [id number] Admin: 10/21/20 11:16 Dose: 1 tab Documented by: [id number] Imaging Data Radiologist's Impression: Chest CTA 10/21/20 03:04 CT ANGIOGRAM OF THE CHEST; CT SCAN OF THE ABDOMEN AND PELVIS WITH IV CONTRAST CLINICAL HISTORY: Atypical chest pain. Left sided abdominal/flank pain. COMPARISON STUDY: CT scan of the chest, abdomen, and pelvis dated 10/14/2020. TECHNIQUE: Following the IV administration of 119 of Optiray 320, CT angiogram of the chest is performed from the upper abdomen to the thoracic inlet utilizing the pulmonary embolus protocol. Images are reviewed in the axial, sagittal, coronal planes. 3-D MIPS images are created and assessed. Subsequently, CT scan of the abdomen and pelvis was performed from the lung bases to the proximal femora. Images are reviewed in the axial, sagittal, and coronal planes. IV contrast was administered without complication. A dose lowering technique was utilized adhering to the principles of ALARA. CT DOSE: 1283.70 mGy.cm FINDINGS: CHEST: Thyroid: Atrophic and heterogeneous. Thoracic aorta: There is atherosclerotic calcification of the thoracic aorta, which is normal in caliber and demonstrates standard 3-vessel arch anatomy. No dissection is seen. Pulmonary vasculature: The pulmonary trunk is normal in caliber. There are no filling defects identified in the main, lobar, or segmental pulmonary arteries to indicate pulmonary embolus. Heart: The heart is enlarged and without pericardial effusion. The coronary milan ron are densely calcified. Lungs and pleural spaces: Evaluation of the lung parenchyma is modestly degraded by motion artifact. The trachea and central airways are clear. There are small left and trace right pleural effusions with associated left basilar consolidation. Numerous foci of tree-in-bud nodularity and patchy nodular airspace opacities are again seen throughout both lungs. This is not appreciably changed as compared 10/14/2020. The largest nodular foci are seen in the right upper lobe on image #120 measuring 13 mm and in the right lower lobe on image #88 measuring 12 mm. Dense airspace consolidation is again seen in the left upper lobe along the major fissure. A 4 mm right middle lobe nodule seen on image #25. Mediastinum: There is no mediastinal lymphadenopathy. Caroline: Clear. Axillae: There is no axillary lymphadenopathy. Bony thorax: The skeletal structures are osteopenic. Degenerative change and hyperkyphosis is noted in the thoracic spine. Advanced arthritic change is seen in the shoulders. No lytic or blastic lesions are identified. There is a healed right-sided rib fracture. ABDOMEN AND PELVIS: Liver: The contrast-enhanced liver is cirrhotic in morphology and heterogeneous in attenuation. There is nodularity of the surface contour as well as hypertr ophy of the left lobe and caudate. There is no intrahepatic or ductal dilatation. The hepatic veins and portal veins are patent. A 10 mm hypodensity in the right lobe on image #58 has been present dating back to 2010. This is of doubtful significance and may represent a hemangioma. Gallbladder: Surgically absent noting clips in the gallbladder fossa. Spleen: Normal in size and attenuation. Pancreas: Mildly atrophic and grossly unremarkable. Adrenal glands: Unremarkable. Kidneys: The contrast enhanced kidneys demonstrate cortical atrophy and are without hydronephrosis. The kidneys enhance symmetrically. A 1.9 cm cyst is noted in the right kidney. Abdominal vasculature: There is advanced atherosclerotic calcification and mild ectasia of the abdominal aorta. Stomach and bowel: There is a small hiatal hernia. There is moderate colonic diverticulosis without CT evidence of acute diverticulitis. There is rectosigmoid fecal retention and moderate constipation. No bowel obstruction is seen. Duodenal diverticula are noted. The appendix is well-visualized and normal. Peritoneum: There is trace perihepatic ascites. No intraperitoneal free air is seen. Foci of induration within the ventral abdominal pannus are likely related to subcutaneous injections. Lymphadenopathy: None. Pelvic viscera: The bladder, uterus, and adnexa are normal as visualized. Skeletal structures: The skeletal structures are osteopenic. There is moderate to advanced lumbosacral spondylosis. No lytic or blastic lesions are seen. IMPRESSION: 1. Similar findings to the CT scan of the chest, abdomen, and pelvis performed 7 days previously. 2. There is no evidence of pulmonary embolus in the main, lobar, or segmental pulmonary arteries. 3. There are small left and trace right pleural effusions with left basilar consolidation. 4. Dense airspace consolidation is also seen in the left upper lobe, and there also numerous foci of patchy tree-in-bud nodularity and inflammatory appearing nodules. The findings suggest acute pneumonia superimposed on a chronic infectious/inflammatory process. Clinical correlation will be required. 5. Nonemergent/outpatient pulmonology follow-up is again recommended, as is a repeat CT scan in 3-4 months time for reassessment of several irregular and likely inflammatory pulmonary lesions. 6. No acute infectious or inflammatory findings are identified in the abdomen or pelvis. 7. Cirrhotic liver morphology. 8. Colonic diverticulosis without CT evidence of acute diverticulitis. 9. Trace perihepatic ascites. 10. Rectosigmoid fecal retention and moderate constipation. 11. Additional findings as above. ACT 112: Negative or not required by law. Electronically signed by: Ravi Schwarz M.D. 10/21/2020 8:45 AM Chest X-Ray 10/21/20 03:04 SINGLE VIEW CHEST CLINICAL HISTORY: Atypical chest pain. FINDINGS: An AP, portable, upright chest radiograph is compared to chest x-ray and chest CT dated 10/14/2020. The examination is degraded by portable technique and patient rotation. The heart is mildly enlarged noting atherosclerotic calcification of the thoracic aorta. The pulmonary vasculature is noncongested. There is bibasilar atelectasis. Mild airspace opacities are noted in the upper lobes. No large pleural effusion or pneumothorax is seen. The skeletal structures are osteopenic. The bony thorax is grossly intact. IMPRESSION: Mild airspace opacities are again suggested in the upper lobes. Correlate clinically for evidence of an infectious/inflammatory pneumonitis. ACT 112: Negative or not required by law. Electronically signed by: Ravi Schwarz M.D. 10/21/2020 8:31 AM Abdomen/Pelvis CT 10/21/20 03:09 CT ANGIOGRAM OF THE CHEST; CT SCAN OF THE ABDOMEN AND PELVIS WITH IV CONTRAST CLINICAL HISTORY: Atypical chest pain. Left sided abdominal/flank pain. COMPARISON STUDY: CT scan of the chest, abdomen, and pelvis dated 10/14/2020. TECHNIQUE: Following the IV administration of 119 of Optiray 320, CT angiogram of the chest is performed from the upper abdomen to the thoracic inlet utilizing the pulmonary embolus protocol. Images are reviewed in the axial, sagittal, coronal planes. 3-D MIPS images are created and assessed. Subsequently, CT scan of the abdomen and pelvis was performed from the lung bases to the proximal fe quinn. Images are reviewed in the axial, sagittal, and coronal planes. IV contrast was administered without complication. A dose lowering technique was utilized adhering to the principles of ALARA. CT DOSE: 1283.70 mGy.cm FINDINGS: CHEST: Thyroid: Atrophic and heterogeneous. Thoracic aorta: There is atherosclerotic calcification of the thoracic aorta, which is normal in caliber and demonstrates standard 3-vessel arch anatomy. No dissection is seen. Pulmonary vasculature: The pulmonary trunk is normal in caliber. There are no filling defects identified in the main, lobar, or segmental pulmonary arteries to indicate pulmonary embolus. Heart: The heart is enlarged and without pericardial effusion. The coronary arteries are densely calcified. Lungs and pleural spaces: Evaluation of the lung parenchyma is modestly degraded by motion artifact. The trachea and central airways are clear. There are small left and trace right pleural effusions with associated left basilar consolid ation. Numerous foci of tree-in-bud nodularity and patchy nodular airspace opacities are again seen throughout both lungs. This is not appreciably changed as compared 10/14/2020. The largest nodular foci are seen in the right upper lobe on image #120 measuring 13 mm and in the right lower lobe on image #88 measuring 12 mm. Dense airspace consolidation is again seen in the left upper lobe along the major fissure. A 4 mm right middle lobe nodule seen on image #25. Mediastinum: There is no mediastinal lymphadenopathy. Caroline: Clear. Axillae: There is no axillary lymphadenopathy. Bony thorax: The skeletal structures are osteopenic. Degenerative change and hyperkyphosis is noted in the thoracic spine. Advanced arthritic change is seen in the shoulders. No lytic or blastic lesions are identified. There is a healed right-sided rib fracture. ABDOMEN AND PELVIS: Liver: The contrast-enhanced liver is cirrhotic in morphology and heterogeneous in attenuation. There is nodularity of the surface contour as well as hypertrophy of the left lobe and caudate. There is no intrahepatic or ductal dilatation. The hepatic veins and portal veins are patent. A 10 mm hypodensity in the right lobe on image #58 has been present dating back to 2010. This is of doubtful significance and may represent a hemangioma. Gallbladder: Surgically absent noting clips in the gallbladder fossa. Spleen: Normal in size and attenuation. Pancreas: Mildly atrophic and grossly unremarkable. Adrenal glands: Unremarkable. Kidneys: The contrast enhanced kidneys demonstrate cortical atrophy and are without hydronephrosis. The kidneys enhance symmetrically. A 1.9 cm cyst is noted in the right kidney. Abdominal vasculature: There is advanced atherosclerotic calcification and mild ectasia of the abdominal aorta. Stomach and bowel: There is a small hiatal hernia. There is moderate colonic diverticulosis without CT evidence of acute diverticulitis. There is rectosigmoid fecal retention and moderate constipation. No bowel obstruction is seen. Duodenal diverticula are noted. The appendix is well-visualized and normal. Peritoneum: There is trace perihepatic ascites. No intraperitoneal free air is seen. Foci of induration within the ventral abdominal pannus are likely related to subcutaneous injections. Lymphadenopathy: None. Pelvic viscera: The bladder, uterus, and adnexa are normal as visualized. Skeletal structures: The skeletal structures are osteopenic. There is moderate to advanced lumbosacral spondylosis. No lytic or blastic lesions are seen. IMPRESSION: 1. Similar findings to the CT scan of the chest, abdomen, and pelvis performed 7 days previously. 2. There is no evidence of pulmonary embolus in the main, lobar, or segmental pulmonary arteries. 3. There are small left and trace right pleural effusions with left basilar consolidation. 4. Dense airspace consolidation is also seen in the left upper lobe, and there also numerous foci of patchy tree-in-bud nodularity and inflammatory appearing nodules. The findings suggest acute pneumonia superimposed on a chronic infectious/inflammatory process. Clinical correlation will be required. 5. Nonemergent/outpatient pulmonology follow-up is again recommended, as is a repeat CT scan in 3-4 months time for reassessment of several irregular and likely inflammatory pulmonary lesions. 6. No acute infectious or inflammatory findings are identified in the abdomen or pelvis. 7. Cirrhotic liver morphology. 8. Colonic diverticulosis without CT evidence of acute diverticulitis. 9. Trace perihepatic ascites. 10. Rectosigmoid fecal retention and moderate constipation. 11. Additional findings as above. ACT 112: Negative or not required by law. Electronically signed by: Ravi Schwarz M.D. 10/21/2020 8:45 AM Discharge Plan Visit Data Chief Complaint: Chest Pain Stated Complaint: chest pain ED Provider: Sharif Bran Discharge Problem: Hypoxia, Pneumonia Patient Disposition: Admitted As Inpatient Discharge Instructions Interventions: ED Discharge Assessment Last Done: 10/21/20 09:30 Discharge Problem: Pneumonia Qualifiers: Pneumonia type: due to unspecified organism Laterality: unspecified laterality Lung location: unspecified part of lung Qualified Code(s): J18.9 - Pneumonia, unspecified organism
[2020-10-21 03:40] LABS: Partial Thromboplastin Time 25.3 Seconds (21.0-31.0)
[2020-10-21 03:51] LABS: Alanine Aminotransferase 36 U/L (12-78); Albumin Level 2.6 gm/dl (3.4-5.0); Aspartate Aminotransferase 37 U/L (15-37); BUN Creatinine Ratio 31.2 (10-20); Blood Urea Nitrogen 33 mg/dl (7-18); Calcium 8.4 mg/dl (8.5-10.1); Carbon Dioxide 29 mmol/L (21-32); Chloride 111 mmol/L (98-107); Creatinine Clr Calc Pharmacy 43.9 ml/min; Est GFR (African American) 56.2 ml/min; Est GFR (Non-African American) 48.5 ml/min; Glucose 125 mg/dl (70-99); Lipase 150 U/L (73-393); Potassium 4.3 mmol/L (3.5-5.1); Sodium 139 mmol/L (136-145)
[2020-10-21 03:56] LABS: Albumin Globulin Ratio 0.6 (0.9-2); Alkaline Phosphatase 82 U/L (45-117); Bilirubin,Total 0.3 mg/dl (0.2-1); Creatine Kinase 71 U/L (26-192); Creatine Kinase MB 1.2 ng/ml (0.5-3.6); Globulin 4.2 gm/dl (2.5-4.0); Total Protein 6.8 gm/dl (6.4-8.2); Troponin I < 0.015 ng/ml (0-0.045)
[2020-10-21] MEDS ORDERED: OPTIRAY 320 125ml IV ONE (04:23)
[2020-10-21] MEDS ORDERED: methylPREDNISolone 125 MG/2 ML VIAL IV STA (05:57)
[2020-10-21] MEDS ORDERED: PIPERACILL/TAZOBAC CONSULT ACTIVE PRN (06:15)
[2020-10-21] MEDS ORDERED: levoFLOXacin/D5W 750 MG/150 ML BAG IV STA (06:15)
[2020-10-21] MEDS ORDERED: PIPERACILLIN/TAZOBACTAM 4.5 GM/120 ML BAG IV ONE (06:15)
[2020-10-21] MEDS ORDERED: CONSULT PHARMACY STA (07:00)
--- NOTE | 2020-10-21 08:13 | History and Physical Report ---
DATE OF ADMISSION: 10/21/2020. CHIEF COMPLAINT: Chest pain. HISTORY OF PRESENT ILLNESS: An 85-year-old female with past medical history significant for type 2 diabetes, hyperlipidemia, asthma, moderate persistent allergic rhinitis, history of pleural effusion, pneumonia of the left side, CAD, chronic gastric ulcer with hemorrhage, hypertension, chronic venous insufficiency, history of external hemorrhoids, stable angina, history of diverticulosis of colon, esophageal stricture, history of dysphagia, history of diverticulosis, urinary incontinence, chronic kidney disease stage III, pseudogout, degenerative disk disease, senile osteoporosis, decreased hearing of both ears, chronic low back pain, anxiety, history of pressure ulcers, who lives in an apartment. Comes because of chest pain. The patient was recently in the hospital for pneumonia and treated with antibiotics and received Zosyn and doxycycline and changed to p.o. doxycycline and amoxicillin to complete 5-[address] scan in 3 months and she was also seen by speech. No swallowing issues, recommended minced and moist diet. She also was found to have pleural effusions, needs follow up with CT chest. At that time, she also complained of chest pain, thought to be atypical chest pain, and she was discharged home yesterday. Comes back again because of chest pain. The patient states she has pain more in the left lower chest and sometimes on the right side. Denies any shortness of breath, denies any cough, denies any fevers. No nausea, no abdominal pain. Appetite is okay. Swallowing okay. Denies any headache. No blurred visions, no earache, no runny nose, no sore throat. No abdominal pain. Somewhat constipated. Denies any blood in the stool or black stool. Normal bladder movements. No swelling in the legs. Says she ambulates with a walker. Currently, resting comfortably and hemodynamically stable. ALLERGIES: AZELASTINE, TROSPIUM, AZITHROMYCIN, CITALOPRAM CHLORPHENIRAMINE, CORTICOSTEROIDS, FEXOFENADINE, FLUTICASONE, HYDROCODONE, MAGNESIUM, SALICYLATE. PAST MEDICAL HISTORY: As mentioned above. PAST SURGICAL HISTORY: Colonoscopy with lesion removal, colposcopy, EGDs, EGD without transendoscopic dilatation, EGDs with endoscopic ultrasound, esophagoscopy, flexible with biopsy, laparoscopic surgical removal of ducts, laparoscopic cholecystectomy, cataract surgery. MEDICATIONS: The patient is on Tylenol 500 mg p.o. b.i.d., Tylenol 650 mg p.o. q.i.d. p.r.n., amlodipine 10 mg p.o. daily, amoxicillin 500 mg p.o. b.i.d., aspirin 81 mg p.o. b.i.d., atorvastatin 40 mg p.o. at bedtime, Tessalon Perles 100 mg p.o. t.i.d., buspirone 5 mg p.o. b.i.d., calcium carbonate and vitamin D one tablet daily, Cerovite Senior 1 tablet daily, cetirizine 10 mg p.o. daily, Colace 100 mg p.o. b.i.d., doxycycline 100 mg p.o. b.i.d., Cymbalta 60 mg p.o. a.m., Advair Diskus one inhalation b.i.d., furosemide 20 mg p.o. a.m., gabapentin 300 mg p.o. b.i.d., isosorbide mononitrate 60 mg p.o. daily, losartan 50 mg p.o. a.m., meclizine 25 mg p.o. t.i.d. p.r.n., melatonin 10 mg p.o. at bedtime, Calmoseptine topical at bedtime, metformin 1000 mg p.o. daily, metoprolol tartrate 50 mg p.o. b.i.d., montelukast 10 mg p.o. at bedtime, nitroglycerin 0.4 mg sublingual p.r.n., Nystatin one application topical b.i.d., omeprazole 40 mg p.o. a.m., oxybutynin chloride 10 mg p.o. daily, tramadol 50 mg p.o. b.i.d., vitamin B complex 1 tablet p.o. daily. FAMILY HISTORY: Significant for father had stomach cancer, mother in an automobile accident. SOCIAL HISTORY: No smoking, no alcohol, no drug use. Lives in an apartment. REVIEW OF SYSTEMS: As per HPI. Rest of review of systems is negative. PHYSICAL EXAMINATION: GENERAL: The patient is of moderate build, not in acute distress. VITAL SIGNS: Temperature 37.1, pulse 76, respiratory rate 18, blood pressure 168/88, oxygen 98% on 2 liters. HEENT: Pupils equal, round, and reactive to light. Oral mucosa moist. NECK: No JVD, no neck masses. CARDIOVASCULAR: S1 and S2 heard. Regular rate and rhythm. No murmur, no gallop. RESPIRATORY SYSTEM: Normal AP diameter. Diminished bilateral breath sounds. No wheezing, no crackles. ABDOMEN: Soft, bowel sounds present, nontender, no distention. CENTRAL NERVOUS SYSTEM: Cranial nerves II through XII grossly intact, nonfocal. EXTREMITIES: No edema, no erythema. LABORATORY DATA: WBC is 9.5, hemoglobin 9.2, hematocrit 29.5, platelets 183. APTT 25.3. Sodium 139, potassium 4.3, chloride 111, bicarbonate 29, BUN 33, creatinine 1.06, serum glucose 125, calcium 8.4, total bilirubin 0.3, AST 37, ALT 36, alkaline phosphatase 82, total creatinine kinase 71. Troponin I less than 0.015. Lipase 150. SARS-CoV-2 PCR negative. EKG: Normal sinus rhythm at a rate of 83, no significant change was found. IMAGING DATA: Chest x-ray, left pleural effusion. CT of the chest, preliminary report, small left pleural effusion with bilateral infiltrates, atelectasis, and consolidation. CT of abdomen and pelvis with contrast, preliminary report, questionable ileus or enteritis, stool-filled colon. ASSESSMENT AND PLAN: This is an 85-year-old female who was recently in the hospital, treated for pneumonia, who presented again with chest pain. 1. Chest pain, : Initial workup is negative, we will follow serial enzymes. Consider echo. CTA of the chest is showing again pneumonia, possible cause of her chest pain. ER started on Zosyn and Levaquin, which will be continued. Follow MRSA screen. Follow the response. 2. Pneumonia: Antibiotics as above. Will monitor the response. 3. History of asthma: Continue her home inhalers and nebs p.r.n. 4. Pleural effusion: Needs followup. 5. History of diabetes: Hold her home oral medication. Placed on insulin sliding scale. Follow the blood sugars. 6. History of asthma and chronic obstructive pulmonary disease: Continue her home Advair. Placed on Xopenex p.r.n. 7. Chronic kidney disease stage III: Baseline creatinine 1.2. Will follow the labs. 8. Chronic diastolic congestive heart failure: on gentle fluids. Continue her home Lasix.. Monitor for any volume overload. 9. History of hypertension: Continue lisinopril, amlodipine, metoprolol tartrate. Monitor her blood pressure. 10. Hyperlipidemia: Continue statin. 11. Ambulatory dysfunction: PT, OT when stable. 12. Coronary artery disease: Status post drug-eluting stents in 2009, on aspirin, metoprolol, isosorbide mononitrate, and atorvastatin. Consider echo. 13. History of cerebrovascular accident: On aspirin and statin. 14. History of anxiety: On Cymbalta. 15. History of deep venous thrombosis prophylaxis: Placed on Lovenox. DISPOSITION: Admit to med tele. PT/OT prior to discharge. Social service to help with discharge planning. Level 1 full code. Job ID: [id number] MTDD
--- NOTE | 2020-10-21 08:32 | XRay Report ---
SINGLE VIEW CHEST CLINICAL HISTORY: Atypical chest pain. FINDINGS: An AP, portable, upright chest radiograph is compared to chest x-ray and chest CT dated 10/04. The examination is degraded by portable technique and patient rotation. The heart is mildly e nlarged noting atherosclerotic calcification of the thoracic aorta. The pulmonary vasculature is nonc ongested. There is bibasilar atelectasis. Mild airspace opacities are noted in the upper lobes. No la rge pleural effusion or pneumothorax is seen. The skeletal structures are osteopenic. The bony thorax is grossly intact. IMPRESSION: Mild airspace opacities are again suggested in the upper lobes. Correlate clinically for evidence of an infectious/inflammatory pneumonitis. ACT 112: Negative or not required by law. Electronically signed by: Ravi Schwarz M.D. 10/21/2020 8:31 AM
--- NOTE | 2020-10-21 08:47 | CT Scan Report ---
CT ANGIOGRAM OF THE CHEST; CT SCAN OF THE ABDOMEN AND PELVIS WITH IV CONTRAST CLINICAL HISTORY: Atypical chest pain. Left sided abdominal/flank pain. COMPARISON STUDY: CT scan of the chest, abdomen, and pelvis dated 10/14/2020. TECHNIQUE: Following the IV administration of 119 of Optiray 320, CT angiogram of the chest is perfor med from the upper abdomen to the thoracic inlet utilizing the pulmonary embolus protocol. Images are reviewed in the axial, sagittal, coronal planes. 3-D MIPS images are created and assessed. Subsequen tly, CT scan of the abdomen and pelvis was performed from the lung bases to the proximal femora. Imag es are reviewed in the axial, sagittal, and coronal planes. IV contrast was administered without comp lication. A dose lowering technique was utilized adhering to the principles of ALARA. CT DOSE: 1283.70 mGy.cm FINDINGS: CHEST: Thyroid: Atrophic and heterogeneous. Thoracic aorta: There is atherosclerotic calcification of the thoracic aorta, which is normal in rashid tam and demonstrates standard 3-vessel arch anatomy. No dissection is seen. Pulmonary vasculature: The pulmonary trunk is normal in caliber. There are no filling defects identif ied in the main, lobar, or segmental pulmonary arteries to indicate pulmonary embolus. Heart: The heart is enlarged and without pericardial effusion. The coronary arteries are densely calc ified. Lungs and pleural spaces: Evaluation of the lung parenchyma is modestly degraded by motion artifact. The trachea and central airways are clear. There are small left and trace right pleural effusions wit h associated left basilar consolidation. Numerous foci of tree-in-bud nodularity and patchy nodular a irspace opacities are again seen throughout both lungs. This is not appreciably changed as compared . The largest nodular foci are seen in the right upper lobe on image #120 measuring 13 mm and in the right lower lobe on image #88 measuring 12 mm. Dense airspace consolidation is again seen in the left upper lobe along the major fissure. A 4 mm right middle lobe nodule seen on image #25. Mediastinum: There is no mediastinal lymphadenopathy. Caroline: Clear. Axillae: There is no axillary lymphadenopathy. Bony thorax: The skeletal structures are osteopenic. Degenerative change and hyperkyphosis is noted i n the thoracic spine. Advanced arthritic change is seen in the shoulders. No lytic or blastic lesions are identified. There is a healed right-sided rib fracture. ABDOMEN AND PELVIS: Liver: The contrast-enhanced liver is cirrhotic in morphology and heterogeneous in attenuation. There is nodularity of the surface contour as well as hypertrophy of the left lobe and caudate. There is n o intrahepatic or ductal dilatation. The hepatic veins and portal veins are patent. A 10 mm hypodensi ty in the right lobe on image #58 has been present dating back to 2011. This is of doubtful significa nce and may represent a hemangioma. Gallbladder: Surgically absent noting clips in the gallbladder fossa. Spleen: Normal in size and attenuation. Pancreas: Mildly atrophic and grossly unremarkable. Adrenal glands: Unremarkable. Kidneys: The contrast enhanced kidneys demonstrate cortical atrophy and are without hydronephrosis. T he kidneys enhance symmetrically. A 1.9 cm cyst is noted in the right kidney. Abdominal vasculature: There is advanced atherosclerotic calcification and mild ectasia of the abdomi nal aorta. Stomach and bowel: There is a small hiatal hernia. There is moderate colonic diverticulosis without C T evidence of acute diverticulitis. There is rectosigmoid fecal retention and moderate constipation. No bowel obstruction is seen. Duodenal diverticula are noted. The appendix is well-visualized and no rmal. Peritoneum: There is trace perihepatic ascites. No intraperitoneal free air is seen. Foci of indurati on within the ventral abdominal pannus are likely related to subcutaneous injections. Lymphadenopathy: None. Pelvic viscera: The bladder, uterus, and adnexa are normal as visualized. Skeletal structures: The skeletal structures are osteopenic. There is moderate to advanced lumbosacra l spondylosis. No lytic or blastic lesions are seen. IMPRESSION: 1. Similar findings to the CT scan of the chest, abdomen, and pelvis performed 7 days previously. 2. There is no evidence of pulmonary embolus in the main, lobar, or segmental pulmonary arteries. 3. There are small left and trace right pleural effusions with left basilar consolidation. 4. Dense airspace consolidation is also seen in the left upper lobe, and there also numerous foci of patchy tree-in-bud nodularity and inflammatory appearing nodules. The findings suggest acute pneumoni a superimposed on a chronic infectious/inflammatory process. Clinical correlation will be required. 5. Nonemergent/outpatient pulmonology follow-up is again recommended, as is a repeat CT scan in 3-4 m onths time for reassessment of several irregular and likely inflammatory pulmonary lesions. 6. No acute infectious or inflammatory findings are identified in the abdomen or pelvis. 7. Cirrhotic liver morphology. 8. Colonic diverticulosis without CT evidence of acute diverticulitis. 9. Trace perihepatic ascites. 10. Rectosigmoid fecal retention and moderate constipation. 11. Additional findings as above. ACT 112: Negative or not required by law. Electronically signed by: Ravi Schwarz M.D. 10/21/2020 8:45 AM
[2020-10-21] MEDS ORDERED: POLYETHYLENE (MIRALAX) 17 GM PACK PO PRN (09:59)
[2020-10-21] MEDS ORDERED: NITROGLYCERIN SL 0.4 MG/TAB TAB SL PRN (09:59)
[2020-10-21] MEDS ORDERED: ONDANSETRON INJ 2 MG/ML 2 ML VIAL IV PRN (09:59)
[2020-10-21] MEDS ORDERED: ACETAMINOPHEN 325 MG TAB PO PRN (09:59)
[2020-10-21] MEDS ORDERED: LEVALBUTEROL HCL 1.25 MG/3 ML NEB NEB PRN (09:59)
[2020-10-21] MEDS ORDERED: MECLIZINE HCL 25 MG TAB PO PRN (10:10)
[2020-10-21] MEDS ORDERED: SODIUM CHLORIDE 0.9% 1000ML 1,000 ML IV SCH (10:15)
[2020-10-21] MEDS: ACETAMINOPHEN 500 MG TAB PO SCH ×2 (11:16→21:02)
[2020-10-21] MEDS: VITAMIN B COMPLEX TAB PO SCH (11:16)
[2020-10-21] MEDS: CALCIUM 600MG + VIT D 400 IU TAB PO SCH (11:16)
[2020-10-21] MEDS: busPIRone 5 MG TAB PO SCH ×2 (11:17→21:01)
[2020-10-21] MEDS: amLODIPine BESYLATE 5 MG TAB PO SCH (11:17)
[2020-10-21] MEDS: DOCUSATE SODIUM 100 MG CAP PO SCH ×2 (11:17→21:02)
[2020-10-21] MEDS: CETIRIZINE HCL 10 MG TABLET PO SCH (11:17)
[2020-10-21] MEDS: DULoxetine HCL 60 MG CAP PO SCH (11:17)
[2020-10-21] MEDS: ASPIRIN 81 MG ECTAB PO SCH ×2 (11:17→21:01)
[2020-10-21] MEDS: PANTOprazole 40 MG TAB PO SCH (11:18)
[2020-10-21] MEDS: GABAPENTIN 300 MG CAP PO SCH ×2 (11:18→21:02)
[2020-10-21] MEDS: OXYBUTYNIN CHLORIDE XL 5 MG TABCR PO SCH (11:18)
[2020-10-21] MEDS: METOPROLOL TARTRATE 50 MG TAB PO SCH ×2 (11:19→17:01)
[2020-10-21] MEDS: FUROSEMIDE 20 MG TAB PO SCH (11:19)
[2020-10-21] MEDS: LOSARTAN POTASSIUM 50 MG TAB PO SCH (11:19)
[2020-10-21] MEDS: ISOSORBIDE MONO EXTENDED REL 60 MG TABCR PO SCH (11:19)
[2020-10-21] MEDS: NYSTATIN POWDER 15GM BTL EXT SCH ×2 (11:20→21:03)
[2020-10-21] MEDS: FLUTICASONE/VILANTEROL 200/25MCG 14 PUFFS/INHALER INH SCH (11:20)
[2020-10-21] MEDS: MENTHOL-ZINC OXIDE 360 APPLN/120 GM TUBE EXT SCH ×3 (11:20→23:14)
[2020-10-21] MEDS: ENOXAPARIN INJ 40 MG/0.4 ML SYR SQ SCH ×2 (11:20→21:05)
[2020-10-21] MEDS: BENZONATATE 100 MG CAPSULE PO SCH ×3 (11:23→21:05)
[2020-10-21] MEDS: traMADol HCL 50 MG TABLET PO SCH ×2 (11:23→21:05)
[2020-10-21] MEDS ORDERED: PIPERACILLIN/TAZOBACTAM 4.5 GM in DEXTROSE 5% 100 ML IV SCH (12:00)
[2020-10-21] MEDS: INSULIN ASPART 100 UNITS/ML 3 ML PEN SC SCH ×3 (12:25→21:00)
[2020-10-21] MEDS: AMOXICILLIN 500 MG CAP PO SCH ×2 (14:04→17:01)
[2020-10-21] MEDS: DOXYCYCLINE HYCLATE 100 MG CAP PO SCH ×2 (14:05→21:03)
--- NOTE | 2020-10-21 15:08 | Cardiology Consultation ---
Date of Consultation October 21, 2020 Assessment & Plan (1) Chest pain syndrome: -undetectable troponin levels and unremarkable EKG. -physical examination suggested musculoskeletal chest pain. -consider treatment with NSAIDS. -no further cardiac evaluation indicated at this time. (2) Arteriosclerotic coronary artery disease: -suffered an anteroseptal MT in May 2009 -s/p mid LAD MELVI at that time. -continue medical management. (3) Hypertension: -adequate control on current regimen. (4) Hyperlipidemia: -continue atorvastatin. History of Present Illness Attending Physician: Trina Turner MD History of Present Illness Mrs. Hernandez is an 85-year-old female admitted earlier today with a chest pain syndrome. This consultation was ordered to assist in her management. Of note, the patient follows with Dr. Narayanan in the outpatient setting. The patient was hospitalized from October 14 through the with a left lower lobe pneumonia. She was noticing some left-sided pleuritic chest pain during that hospitalization. She was discharged back [facility] [place] yesterday. She complained of significant tenderness along the left anterior axillary line and underneath the left breast. She was sent to the emergency room for further care. On arrival here, the patient had no acute EKG changes and 2 troponin I levels have been undetectable at less than 0.015. The patient does carry history of coronary artery disease having suffered an anteroseptal MT in May 2009. She had a MELVI placed in the mid LAD by Dr. Narayanan at that time. She has done well from a cardiac perspective. The patient is resting comfortably in bed and experiences left-sided chest pain whenever she attempts to reposition. Past medical and surgical history 1. Coronary artery disease 2. Mid LAD MELVI-May 2009 3. Chronic diastolic CHF 4. Hypertension 5. Hypercholesterolemia 6. Cerebrovascular disease 7. History of CVA 8. Chronic venous insufficiency 9. History of gastric ulcer 10. Chronic renal failure 11. Degenerative disc disease 12. Obesity 13. Cholecystectomy 14. Intra-ocular lens implants 15. Tubal ligation Social history , lives at [facility] No tobacco alcohol Family history Noncontributory Review of systems A 10 point review systems was undertaken and negative except that described above. Allergies Allergy/AdvReac Type Severity Reaction Status Date / Time azelastine Allergy Intermediate elevated bp Verified 10/21/20 03:14 trospium Allergy Intermediate hives Verified 10/21/20 03:14 azithromycin Allergy Mild Rash Verified 10/21/20 03:14 citalopram Allergy Unknown UNKNOWN Verified 10/21/20 03:14 chlorpheniramine AdvReac Intermediate ELEVATED BP Verified 10/21/20 03:14 Corticosteroids AdvReac Intermediate ELEVATED BP Verified 10/21/20 03:14 (Glucocorticoids) fexofenadine AdvReac Intermediate ELEVATED BP Verified 10/21/20 03:14 fluticasone AdvReac Intermediate ELEVATED BP Verified 10/21/20 03:14 hydrocodone AdvReac Intermediate ELEVATED BP Verified 10/21/20 03:14 magnesium salicylate AdvReac Intermediate ELEVATED BP Verified 10/21/20 03:14 salicylates AdvReac Intermediate ELEVATED BP Verified 10/21/20 03:14 Home Medications Medication Instructions Recorded Confirmed Type amlodipine 10 mg tablet (Norvasc) 10 mg PO QAM 11/28/17 10/21/20 History docusate sodium 100 mg capsule 100 mg PO BID cap 11/28/17 10/21/20 History (Colace) gabapentin 300 mg capsule 300 mg PO AMPM 11/28/17 10/21/20 History montelukast 10 mg tablet 10 mg PO HS 11/28/17 10/21/20 History (Singulair) aspirin 81 mg tablet,delayed 81 mg PO BID 06/16/18 10/21/20 History release duloxetine 60 mg capsule,delayed 60 mg PO QAM 06/16/18 10/21/20 History release (Cymbalta) furosemide 20 mg tablet 20 mg PO QAM 12/26/18 10/21/20 History isosorbide mononitrate 60 mg 60 mg PO QAM 12/26/18 10/21/20 History tablet,extended release 24 hr melatonin 5 mg tablet 10 mg PO HS tab 12/26/18 10/21/20 History nitroglycerin 0.4 mg sublingual 0.4 mg SL Q5M PRN 12/26/18 10/21/20 History tablet tramadol 50 mg tablet 50 mg PO AMPM 12/26/18 10/21/20 History acetaminophen 500 mg tablet 500 mg PO BID 09/16/19 10/21/20 History cetirizine 10 mg tablet 10 mg PO QDL 09/16/19 10/21/20 History fluticasone 250 mcg-salmeterol 50 1 inh INHALATION BID 09/16/19 10/21/20 History mcg/dose blistr powdr for inhalation (Advair Diskus) metoprolol tartrate 50 mg tablet 50 mg PO BIDM 09/16/19 10/21/20 History atorvastatin 40 mg tablet 40 mg PO HS 12/23/19 10/21/20 History buspirone 5 mg tablet 5 mg PO BID 12/23/19 10/21/20 History losartan 50 mg tablet 50 mg PO QAM 12/23/19 10/21/20 History meclizine 25 mg tablet 25 mg PO BID PRN 12/23/19 10/21/20 History vhlyglsvstat-xifvwfwn-cqiplk 1 tab PO DAILY 12/23/19 10/21/20 History tablet (Cerovite Senior) omeprazole 40 mg capsule,delayed 40 mg PO QAM 12/23/19 10/21/20 History release calcium carbonate 500 mg (1,250 1 tab PO QDL 10/14/20 10/21/20 History mg)-vitamin D3 200 unit tablet (Oyster Shell Calcium-Vit D3) metformin 500 mg tablet 1,000 mg PO DAILY 10/14/20 10/21/20 History oxybutynin chloride 10 mg 10 mg PO DAILY 10/14/20 10/21/20 History tablet,extended release 24 hr vitamin B complex-folic acid 0.4 1 tab PO .DAILY AT NOON 10/14/20 10/21/20 History mg tablet (Balance B-50 (with folic acid)) amoxicillin 500 mg capsule 500 mg PO BID@1000,2200 #5 cap 10/20/20 10/21/20 Rx benzonatate 100 mg capsule 100 mg PO TID #15 cap 10/20/20 10/21/20 Rx (Tessalon Perles) doxycycline hyclate 100 mg capsule 100 mg PO BID #5 cap 10/20/20 10/21/20 Rx acetaminophen 325 mg tablet 650 mg PO QID PRN MDD 3g 10/21/20 10/21/20 History menthol 0.44 %-zinc oxide 20.6 % 1 applic TOPICAL QS 10/21/20 10/21/20 History topical ointment (Calmoseptine) nystatin 100,000 unit/gram topical 1 applic TOPICAL BID 10/21/20 10/21/20 History powder Patient History Medical History (Updated 10/21/20 @ 15:18 by Brody Contreras MD) Ambulatory dysfunction Anxiety Anxiety (02/04/11) Arteriosclerotic coronary artery disease (02/04/11) Arthritis Asthma Carotid stenosis Cerebrovascular disease Chronic diastolic heart failure Degenerative disc disease Diabetic neuropathy Diverticulosis (02/04/11) GERD (gastroesophageal reflux disease) Hyperlipidemia Hyperlipidemia Hypertension Hypertension Morbid obesity with BMI of 45.0-49.9, adult (02/04/11) Myocardial Infarction OVER 10 YEARS AGO Peripheral edema Pneumonia Pressure sore ON COCCYX (FROM SITTING) Restless leg syndrome Unsteady gait when walking Urinary incontinence Venous insufficiency Surgical History History of anesthesia reaction SLOW TO WAKE UP History of cataract surgery History of colonoscopy History of esophagogastroduodenoscopy (EGD) History of heart artery stent OVER 10 YEARS AGO/1 STENT (FOLLOWS DR. NARAYANAN) History of tooth extraction Hx laparoscopic cholecystectomy Hx of tubal ligation Family History Other Adopted Cancer Social History Smoking Status: Never smoker Second Hand Exposure: No; Hx Alcohol Use: No Hx Substance Use: No Preferred Language: Emir[place] Communication Ability: Effective County Commissioner Required: No Beliefs That Will Affect Care: None marital status: / marital status details: dmitriy Current Living Situation: Personal Care Facility Current Living Situation Comment: [facility] current occupational status: retired Other Information That Helps Us Care for You: No Feels Safe at Home: Yes Safety Concerns: Feels Safe At This Time Assistive Devices: Denture - Upper, Denture - Lower, Glasses, Oxygen - at Night and Walker Physical Exam Physical Exam: In general is well-developed well-nourished white female no acute distress. HEENT exam is negative. Neck is supple with full carotid upstr okes. No carotid bruits. Jugular venous pressure is flat at 90. There is no thyromegaly. Cardiovascular exam reveals a regular rhythm with normal S1 and S2. No S3, S4, or murmurs are noted. Lungs are clear without rales, rhonchi or wheezes. Chest reveals tenderness along the left anterior axillary line and underneath the left breast. This duplicates her presenting complaints perfectly. Abdomen is soft without bruits. Extremities note intact radial artery pulses bilaterally. There is trace pretibial edema. Results & Data ([facility]) Vital Signs (Past 12 Hours) Vital Signs Temp Pulse Pulse Resp BP BP Pulse Ox 10/21/20 11:37 36.7 C 85 20 168/76 H 97 10/21/20 10:50 37 C 81 89 18 166/81 H 98 10/21/20 08:46 85 22 165/76 H 97 10/21/20 06:22 76 18 98 10/21/20 05:50 78 19 168/88 H 95 10/21/20 05:02 76 76 20 157/37 H 157/67 H 96 10/21/20 04:16 81 24 100 10/21/20 03:40 73 73 20 192/72 H 100 10/21/20 03:30 97 Laboratory Results Troponin I level is undetectable at less than 0.015 on 2 separate occasions. Diagnostic Findings EKG notes normal sinus rhythm without abnormalities. PG Care Time/CCT Total # of Minutes Spent Total Time Spent with Patient: Total time spent is greater than 50% in coordination of care (as documented) at patient's floor/unit and/or counseling patient: Coding Level of Care Code 06726 Initial Inpt Care Lvl 3 Diagnoses Chest pain syndrome R07.9 Arteriosclerotic coronary artery disease I25.10 Hypertension I10 Hyperlipidemia E78.5
--- NOTE | 2020-10-21 16:49 | XCELERA ---
[id number]
--- NOTE | 2020-10-21 17:00 | Electrocardiogram Report ---
Test Reason : Blood Pressure : / mmHG Vent. Rate : 083 BPM Atrial Rate : 083 BPM P-R Int : 170 ms QRS Dur : 082 ms QT Int : 392 ms P-R-T Axes : 063 034 070 degrees QTc Int : 460 ms Poor data quality, interpretation may be adversely affected Normal sinus rhythm Normal ECG When compared with ECG of 14-OCT-2020 13:55, No significant change was found Confirmed by Brody Contreras ([id number]) on 10/21/2020 5:00:10 PM Referred By: Garcia Calderon Confirmed By:Brody Contreras
--- NOTE | 2020-10-21 19:23 | Hospitalist Progress Note ---
Date of Service October 21, 2020 Assessment & Plan (1) Chest pain: Plan: Present on admission with chest pain after being discharge from the hospital yesterday Atypical chest pain on presention Troponin x3 negative EKG showed no ischemic changes ECHO showed no LV wall motion abnormality with EF 60-65% Continue aspirin, metoprolol and statin Cardiology on board No additional testing needed 2. Pneumonia: will complete the course of the antibiotic 3. History of asthma: Continue her home inhalers and nebs p.r.n. 4. Pleural effusion: Needs followup. 5. History of diabetes: Hold her home oral medication. Placed on insulin sliding scale. Follow the blood sugars. 6. History of asthma and chronic obstructive pulmonary disease: Continue her home Advair. Placed on Xopenex p.r.n. Will need a 2 step exercise 7. Chronic kidney disease stage III: Baseline creatinine 1.2. stable 8. Chronic diastolic congestive heart failure: on gentle fluids. Continue her home Lasix.. Monitor for any volume overload. 9. History of hypertension: Continue lisinopril, amlodipine, metoprolol tartrate. Monitor her blood pressure. 10. Hyperlipidemia: Continue statin. 11. Ambulatory dysfunction: PT, OT when stable. 12. Coronary artery disease: Status post drug-eluting stents in 2009, on aspirin, metoprolol, isosorbide mononitrate, and atorvastatin. Consider echo. 13. History of cerebrovascular accident: On aspirin and statin. 14. History of anxiety: On Cymbalta. 15. History of deep venous thrombosis prophylaxis: on Lovenox. Admission and Anticipated Discharge Date Admission Date: October 21, 2020 Subjective Pt was seen and examined for follow up chest pain Lying in bed with no distress Pt said that she feels ok Denies any chest pain, palpitation, dizziness and SOB Physical Exam Physical Exam: General- No acute distress Head- atraumatic Eyes- PERRL, EOMI, ENT- oropharynx clear Neck- supple, no JVD Lungs- clear to auscultation Heart- regular rhythm; no murmur Abdomen- normal bowel sounds, soft, nontender Extremities- no calf tenderness Neuro- alert, oriented x 3; PERRL, EOMI; no facial palsy; no dysarthria Skin- warm & dry Results & Data Results & Data ([facility]) Vital Signs (Past 12 Hours) Vital Signs Temp Pulse Pulse Resp BP Pulse Ox 10/21/20 15:24 69 10/21/20 15:00 36.5 C 69 20 136/70 95 10/21/20 11:37 36.7 C 85 20 168/76 H 97 10/21/20 10:50 37 C 81 89 18 166/81 H 98 10/21/20 08:46 85 22 165/76 H 97
[2020-10-21] MEDS ORDERED: MELATONIN 3 MG TAB PO SCH (21:00)
[2020-10-21] MEDS ORDERED: ATORVASTATIN 40 MG TAB PO SCH (21:00)
[2020-10-21] MEDS ORDERED: MONTELUKAST SODIUM 10 MG TABLET PO SCH (21:00)
[2020-10-22 06:09] LABS: Basophils # (auto) 0.02 K/uL (0-0.2); Basophils % (auto) 0.2 %; Eosinophils # (auto) 0.06 K/uL (0-0.5); Eosinophils % (auto) 0.6 %; Hemoglobin 9.1 g/dL (12.0-16.0); Immature Granulocytes # (auto) 0.05 K/uL (0.00-0.02); Immature Granulocytes % (auto) 0.5 %; Lymphocytes # (auto) 1.96 K/uL (1.2-3.4); Mean Corpuscular Hemoglobin 27.7 pg (25-34); Mean Corpuscular Hgb Conc 31.4 g/dL (32-36); Mean Corpuscular Volume 88.1 fL (80-100); Mean Platelet Volume 9.7 fL (7.4-10.4); Monocytes # (auto) 0.92 K/uL (0.11-0.59); Monocytes % (auto) 9.9 %; Neutrophils # (auto) 6.32 K/uL (1.4-6.5); Neutrophils % (auto) 67.8 %; Platelet Count 156 K/uL (130-400); RDW Coefficient of Variation 15.4 % (11.5-14.5); RDW Standard Deviation 49.3 fL (36.4-46.3); Red Blood Count 3.29 M/uL (4.2-5.4); White Blood Count 9.33 K/uL (4.8-10.8)
[2020-10-22 06:45] LABS: BUN Creatinine Ratio 25.1 (10-20); Calcium 8.9 mg/dl (8.5-10.1); Creatinine Clr Calc Pharmacy 45.1 ml/min; Est GFR (African American) 60.3 ml/min; Est GFR (Non-African American) 52.1 ml/min; Potassium 4.1 mmol/L (3.5-5.1)
[2020-10-22] MEDS: METOPROLOL TARTRATE 50 MG TAB PO SCH (08:59)
[2020-10-22] MEDS: amLODIPine BESYLATE 5 MG TAB PO SCH (09:01)
[2020-10-22] MEDS: ASPIRIN 81 MG ECTAB PO SCH (09:02)
[2020-10-22] MEDS: FUROSEMIDE 20 MG TAB PO SCH (09:03)
[2020-10-22] MEDS: GABAPENTIN 300 MG CAP PO SCH (09:04)
[2020-10-22] MEDS: ISOSORBIDE MONO EXTENDED REL 60 MG TABCR PO SCH (09:05)
[2020-10-22] MEDS: LOSARTAN POTASSIUM 50 MG TAB PO SCH (09:06)
[2020-10-22] MEDS: traMADol HCL 50 MG TABLET PO SCH (09:07)
[2020-10-22] MEDS: INSULIN ASPART 100 UNITS/ML 3 ML PEN SC SCH ×2 (09:22→12:45)
[2020-10-22] MEDS: MENTHOL-ZINC OXIDE 360 APPLN/120 GM TUBE EXT SCH (09:26)
[2020-10-22] MEDS: AMOXICILLIN 500 MG CAP PO SCH (09:27)
[2020-10-22] MEDS: BENZONATATE 100 MG CAPSULE PO SCH (09:37)
[2020-10-22] MEDS: busPIRone 5 MG TAB PO SCH (09:38)
[2020-10-22] MEDS: DOXYCYCLINE HYCLATE 100 MG CAP PO SCH (09:39)
[2020-10-22] MEDS: DOCUSATE SODIUM 100 MG CAP PO SCH (09:39)
[2020-10-22] MEDS: DULoxetine HCL 60 MG CAP PO SCH (09:41)
[2020-10-22] MEDS: FLUTICASONE/VILANTEROL 200/25MCG 14 PUFFS/INHALER INH SCH (09:42)
[2020-10-22] MEDS: NYSTATIN POWDER 15GM BTL EXT SCH (09:44)
[2020-10-22] MEDS: OXYBUTYNIN CHLORIDE XL 5 MG TABCR PO SCH (09:44)
[2020-10-22] MEDS: PANTOprazole 40 MG TAB PO SCH (09:45)
[2020-10-22] MEDS: ENOXAPARIN INJ 40 MG/0.4 ML SYR SQ SCH (09:46)
[2020-10-22] MEDS ORDERED: CEROVITE ADV FORMULA TAB PO SCH (11:30)
[2020-10-22] MEDS: CALCIUM 600MG + VIT D 400 IU TAB PO SCH (11:45)
[2020-10-22] MEDS: CETIRIZINE HCL 10 MG TABLET PO SCH (11:46)
[2020-10-22] MEDS: ACETAMINOPHEN 500 MG TAB PO SCH (11:48)
[2020-10-22] MEDS: VITAMIN B COMPLEX TAB PO SCH (11:48)
--- NOTE | 2020-10-22 12:46 | Discharge Summary ---
Date of Service October 22, 2020 Admission HPI Per Admitting Provider CHIEF COMPLAINT: Chest pain. HISTORY OF PRESENT ILLNESS: An 85-year-old female with past medical history significant for type 2 diabetes, hyperlipidemia, asthma, moderate persistent allergic rhinitis, history of pleural effusion, pneumonia of the left side, CAD, chronic gastric ulcer with hemorrhage, hypertension, chronic venous insufficiency, history of external hemorrhoids, stable angina, history of diverticulosis of colon, esophageal stricture, history of dysphagia, history of diverticulosis, urinary incontinence, chronic kidney disease stage III, pseudogout, degenerative disk disease, senile osteoporosis, decreased hearing of both ears, chronic low back pain, anxiety, history of pressure ulcers, who lives in an apartment. Comes because of chest pain. The patient was recently in the hospital for pneumonia and treated with antibiotics and received Zosyn and doxycycline and changed to p.o. doxycycline and amoxicillin to complete 5-[address] scan in 3 months and she was also seen by speech. No swallowing issues, recommended minced and moist diet. She also was found to have pleural effusions, needs follow up with CT chest. At that time, she also complained of chest pain, thought to be atypical chest pain, and she was discharged home yesterday. Comes back again because of chest pain. The patient states she has pain more in the left lower chest and sometimes on the right side . Denies any shortness of breath, denies any cough, denies any fevers. No nausea, no abdominal pain. Appetite is okay. Swallowing okay. Denies any headache. No blurred visions, no earache, no runny nose, no sore throat. No abdominal pain. Somewhat constipated. Denies any blood in the stool or black stool. Normal bladder movements. No swelling in the legs. Says she ambulates with a walker. Currently, resting comfortably and hemodynamically stable. Admission Exam Per Admitting Provider PHYSICAL EXAMINATION: GENERAL: The patient is of moderate build, not in acute distress. VITAL SIGNS: Temperature 37.1, pulse 76, respiratory rate 18, blood pressure 168/88, oxygen 98% on 2 liters. HEENT: Pupils equal, round, and reactive to light. Oral mucosa moist. NECK: No JVD, no neck masses. CARDIOVASCULAR: S1 and S2 heard. Regular rate and rhythm. No murmur, no gallop. RESPIRATORY SYSTEM: Normal AP diameter. Diminished bilateral breath sounds. No wheezing, no crackles. ABDOMEN: Soft, bowel sounds present, nontender, no distention. CENTRAL NERVOUS SYSTEM: Cranial nerves II through XII grossly intact, nonfocal. EXTREMITIES: No edema, no erythema. Principal Diagnosis Atypial chest pain Pneumonia: Pleural effusion: Diabetes mellitus, type 2: Chronic obstructive pulmonary disease: CKD (chronic kidney disease), stage III: Chronic diastolic heart failure: Hypertension: Hyperlipidemia: Ambulatory dysfunction: CAD (coronary artery disease): Cerebrovascular disease: Discharge Exam General- No acute distress Head- atraumatic Eyes- PERRL, EOMI, ENT- oropharynx clear Neck- supple, no JVD Lungs- clear to auscultation Heart- regular rhythm; no murmur Abdomen- normal bowel sounds, soft, nontender Extremities- no calf tenderness Neuro- alert, oriented x 3; PERRL, EOMI; no facial palsy; no dysarthria Skin- warm & dry Discharge Data Allergies Allergy/AdvReac Type Severity Reaction Status Date / Time azelastine Allergy Intermediate elevated bp Verified 10/21/20 03:14 trospium Allergy Intermediate hives Verified 10/21/20 03:14 azithromycin Allergy Mild Rash Verified 10/21/20 03:14 citalopram Allergy Unknown UNKNOWN Verified 10/21/20 03:14 chlorpheniramine AdvReac Intermediate ELEVATED BP Verified 10/21/20 03:14 Corticosteroids AdvReac Intermediate ELEVATED BP Verified 10/21/20 03:14 (Glucocorticoids) fexofenadine AdvReac Intermediate ELEVATED BP Verified 10/21/20 03:14 fluticasone AdvReac Intermediate ELEVATED BP Verified 10/21/20 03:14 hydrocodone AdvReac Intermediate ELEVATED BP Verified 10/21/20 03:14 magnesium salicylate AdvReac Intermediate ELEVATED BP Verified 10/21/20 03:14 salicylates AdvReac Intermediate ELEVATED BP Verified 10/21/20 03:14 Consultations 10/21/20 06:16 ED Decision to Admit Stat 10/21/20 10:11 Consult Cardiology Routine Ordered Studies 10/21/20 03:04 CT angio chest PE protocol Urgent 10/21/20 03:09 CT abd pelvis IV con only Urgent CT ANGIOGRAM OF THE CHEST; CT SCAN OF THE ABDOMEN AND PELVIS WITH IV CONTRAST CLINICAL HISTORY: Atypical chest pain. Left sided abdominal/flank pain. COMPARISON STUDY: CT scan of the chest, abdomen, and pelvis dated 10/14/2020. TECHNIQUE: Following the IV administration of 119 of Optiray 320, CT angiogram of the chest is performed from the upper abdomen to the thoracic inlet utilizing the pulmonary embolus protocol. Images are reviewed in the axial, sagittal, coronal planes. 3-D MIPS images are created and assessed. Subsequently, CT scan of the abdomen and pelvis was performed from the lung bases to the proximal femora. Images are reviewed in the axial, sagittal, and coronal planes. IV contrast was administered without complication. A dose lowering technique was utilized adhering to the principles of ALARA. CT DOSE: 1283.70 mGy.cm FINDINGS: CHEST: Thyroid: Atrophic and heterogeneous. Thoracic aorta: There is atherosclerotic calcification of the thoracic aorta, which is normal in caliber and demonstrates standard 3-vessel arch anatomy. No dissection is seen. Pulmonary vasculature: The pulmonary trunk is normal in caliber. There are no filling defects identified in the main, lobar, or segmental pulmonary arteries to indicate pulmonary embolus. Heart: The heart is enlarged and without pericardial effusion. The coronary arteries are densely calcified. Lungs and pleural spaces: Evaluation of the lung parenchyma is modestly degraded by motion artifact. The trachea and central airways are clear. There are small left and trace right pleural effusions with associated left basilar consolidation. Numerous foci of tree-in-bud nodularity and patchy nodular airspace opacities are again seen throughout both lungs. This is not appreciably changed as compared 10/14/2020. The largest nodular foci are seen in the right upper lobe on image #120 measuring 13 mm and in the right lower lobe on image #88 measuring 12 mm. Dense airspace consolidation is again seen in the left upper lobe along the major fissure. A 4 mm right middle lobe nodule seen on image #25. Mediastinum: There is no mediastinal lymphadenopathy. Caroline: Clear. Axillae: There is no axillary lymphadenopathy. Bony thorax: The skeletal structures are osteopenic. Degenerative change and hyperkyphosis is noted in the thoracic spine. Advanced arthritic change is seen in the shoulders. No lytic or blastic lesions are identified. There is a healed right-sided rib fracture. ABDOMEN AND PELVIS: Liver: The contrast-enhanced liver is cirrhotic in morphology and heterogeneous in attenuation. There is nodularity of the surface contour as well as hypertrophy of the left lobe and caudate. There is no intrahepatic or ductal dilatation. The hepatic veins and portal veins are patent. A 10 mm hypodensity in the right lobe on image #58 has been present dating back to 2011. This is of doubtful significance and may represent a hemangioma. Gallbladder: Surgically absent noting clips in the gallbladder fossa. Spleen: Normal in size and attenuation. Pancreas: Mildly atrophic and grossly unremarkable. Adrenal glands: Unremarkable. Kidneys: The contrast enhanced kidneys demonstrate cortical atrophy and are without hydronephrosis. The kidneys enhance symmetrically. A 1.9 cm cyst is noted in the right kidney. Abdominal vasculature: There is advanced atherosclerotic calcification and mild ectasia of the abdominal aorta. Stomach and bowel: There is a small hiatal hernia. There is moderate colonic diverticulosis without CT evidence of acute diverticulitis. There is rectosigmoid fecal retention and moderate constipation. No bowel obstruction is seen. Duodenal diverticula are noted. The appendix is well-visualized and normal. Peritoneum: There is trace perihepatic ascites. No intraperitoneal free air is seen. Foci of induration within the ventral abdominal pannus are likely related to subcutaneous injections. Lymphadenopathy: None. Pelvic viscera: The bladder, uterus, and adnexa are normal as visualized. Skeletal structures: The skeletal structures are osteopenic. There is moderate to advanced lumbosacral spondylosis. No lytic or blastic lesions are seen. IMPRESSION: 1. Similar findings to the CT scan of the chest, abdomen, and pelvis performed 7 days previously. 2. There is no evidence of pulmonary embolus in the main, lobar, or segmental pulmonary arteries. 3. There are small left and trace right pleural effusions with left basilar consolidation. 4. Dense airspace consolidation is also seen in the left upper lobe, and there also numerous foci of patchy tree-in-bud nodularity and inflammatory appearing nodules. The findings suggest acute pneumonia superimposed on a chronic infectious/inflammatory process. Clinical correlation will be required. 5. Nonemergent/outpatient pulmonology follow-up is again recommended, as is a repeat CT scan in 3-4 months time for reassessment of several irregular and likely inflammatory pulmonary lesions. 6. No acute infectious or inflammatory findings are identified in the abdomen or pelvis. 7. Cirrhotic liver morphology. 8. Colonic diverticulosis without CT evidence of acute diverticulitis. 9. Trace perihepatic ascites. 10. Rectosigmoid fecal retention and moderate constipation. 11. Additional findings as above. ACT 112: Negative or not required by law. Electronically signed by: Ravi Schwarz M.D. 10/21/2020 8:45 AM Dictated: 10/21/20814Transcribed: 10/21/20814 SINGLE VIEW CHEST CLINICAL HISTORY: Atypical chest pain. FINDINGS: An AP, portable, upright chest radiograph is compared to chest x-ray and chest CT dated 10/14/2020. The examination is degraded by portable technique and patient rotation. The heart is mildly enlarged noting atherosclerotic calcification of the thoracic aorta. The pulmonary vasculature is noncongested. There is bibasilar atelectasis. Mild airspace opacities are noted in the upper lobes. No large pleural effusion or pneumothorax is seen. The skeletal structures are osteopenic. The bony thorax is grossly intact. IMPRESSION: Mild airspace opacities are again suggested in the upper lobes. Correlate clinically for evidence of an infectious/inflammatory pneumonitis. ACT 112: Negative or not required by law. Electronically signed by: Ravi Schwarz M.D. 10/21/2020 8:31 AM Dictated: 10/21/20828Transcribed: 10/21/20828 CT ANGIOGRAM OF THE CHEST; CT SCAN OF THE ABDOMEN AND PELVIS WITH IV CONTRAST CLINICAL HISTORY: Atypical chest pain. Left sided abdominal/flank pain. COMPARISON STUDY: CT scan of the chest, abdomen, and pelvis dated 10/14/2020. TECHNIQUE: Following the IV administration of 119 of Optiray 320, CT angiogram of the chest is performed from the upper abdomen to the thoracic inlet utilizing the pulmonary embolus protocol. Images are reviewed in the axial, sagittal, coronal planes. 3-D MIPS images are created and assessed. Subsequently, CT scan of the abdomen and pelvis was performed from the lung bases to the proximal femora. Images are reviewed in the axial, sagittal, and coronal planes. IV contr ast was administered without complication. A dose lowering technique was utilized adhering to the principles of ALARA. CT DOSE: 1283.70 mGy.cm FINDINGS: CHEST: Thyroid: Atrophic and heterogeneous. Thoracic aorta: There is atherosclerotic calcification of the thoracic aorta, which is normal in caliber and demonstrates standard 3-vessel arch anatomy. No dissection is seen. Pulmonary vasculature: The pulmonary trunk is normal in caliber. There are no filling defects identified in the main, lobar, or segmental pulmonary arteries to indicate pulmonary embolus. Heart: The heart is enlarged and without pericardial effusion. The coronary arteries are densely calcified. Lungs and pleural spaces: Evaluation of the lung parenchyma is modestly degraded by motion artifact. The trachea and central airways are clear. There are small left and trace right pleural effusions with associated left basilar consolidation. Numerous foci of tree-in-bud nodularity and patchy nodular airspace opacities are again seen throughout both lungs. This is not appreciably changed as compared 10/14/2020. The largest nodular foci are seen in the right upper lobe on image #120 measuring 13 mm and in the right lower lobe on image #88 measuring 12 mm. Dense airspace consolidation is again seen in the left upper lobe along the major fissure. A 4 mm right middle lobe nodule seen on image #25. Mediastinum: There is no mediastinal lymphadenopathy. Caroline: Clear. Axillae: There is no axillary lymphadenopathy. Bony thorax: The skeletal structures are osteopenic. Degenerative change and hyperkyphosis is noted in the thoracic spine. Advanced arthritic change is seen in the shoulders. No lytic or blastic lesions are identified. There is a healed right-sided rib fracture. ABDOMEN AND PELVIS: Liver: The contrast-enhanced liver is cirrhotic in morphology and heterogeneous in attenuation. There is nodularity of the surface contour as well as hypertrophy of the left lobe and caudate. There is no intrahepatic or ductal dilatation. The hepatic veins and portal veins are patent. A 10 mm hypodensity in the right lobe on image #58 has been present dating back to 2010. This is of doubtful significance and may represent a hemangioma. Gallbladder: Surgically absent noting clips in the gallbladder fossa. Spleen: Normal in size and attenuation. Pancreas: Mildly atrophic and grossly unremarkable. Adrenal glands: Unremarkable. Kidneys: The contrast enhanced kidneys demonstrate cortical atrophy and are without hydronephrosis. The kidneys enhance symmetrically. A 1.9 cm cyst is noted in the right kidney. Abdominal vasculature: There is advanced atherosclerotic calcification and mild ectasia of the abdominal aorta. Stomach and bowel: There is a small hiatal hernia. There is moderate colonic diverticulosis without CT evidence of acute diverticulitis. There is rectosigmoid fecal retention and moderate constipation. No bowel obstruction is seen. Duodenal diverticula are noted. The appendix is well-visualized and normal. Peritoneum: There is trace perihepatic ascites. No intraperitoneal free air is seen. Foci of induration within the ventral abdominal pannus are likely related to subcutaneous injections. Lymphadenopathy: None. Pelvic viscera: The bladder, uterus, and adnexa are normal as visualized. Skeletal structures: The skeletal structures are osteopenic. There is moderate to advanced lumbosacral spondylosis. No lytic or blastic lesions are seen. IMPRESSION: 1. Similar findings to the CT scan of the chest, abdomen, and pelvis performed 7 days previously. 2. There is no evidence of pulmonary embolus in the main, lobar, or segmental pulmonary arteries. 3. There are small left and trace right pleural effusions with left basilar consolidation. 4. Dense airspace consolidation is also seen in the left upper lobe, and there also numerous foci of patchy tree-in-bud nodularity and inflammatory appearing nodules. The findings suggest acute pneumonia superimposed on a chronic infectious/inflammatory process. Clinical correlation will be required. 5. Nonemergent/outpatient pulmonology follow-up is again recommended, as is a repeat CT scan in 3-4 months time for reassessment of several irregular and likely inflammatory pulmonary lesions. 6. No acute infectious or inflammatory findings are identified in the abdomen or pelvis. 7. Cirrhotic liver morphology. 8. Colonic diverticulosis without CT evidence of acute diverticulitis. 9. Trace perihepatic ascites. 10. Rectosigmoid fecal retention and moderate constipation. 11. Additional findings as above. ACT 112: Negative or not required by law. Electronically signed by: Ravi Schwarz M.D. 10/21/2020 8:45 AM Dictated: 10/21/20 0815Transcribed: 10/21/20 0815 Hospital Course (1) Chest pain: Atypical chest pain Present on admission with chest pain after being discharge from the hospital yesterday Atypical chest pain on presentation Troponin x3 negative EKG showed no ischemic changes ECHO showed no LV wall motion abnormality with EF 60-65% Continue aspirin, metoprolol and statin Cardiology on board No additional testing needed 2. Pneumonia: Completed the course of the antibiotic 3. History of asthma: Continue her home inhalers and nebs p.r.n. 4. Pleural effusion: Please follow up with repeat imaging outpatient 5. History of diabetes: Hold her home oral medication. Placed on insulin sliding scale. Follow the blood sugars. 6. History of asthma and chronic obstructive pulmonary disease: Continue her home Advair. Placed on Xopenex p.r.n. Will need a 2 step exercise 7. Chronic kidney disease stage III: Baseline creatinine 1.2. stable 8. Chronic diastolic congestive heart failure: Continue her home Lasix.. Monitor for any volume overload. 9. History of hypertension: Continue lisinopril, amlodipine, metoprolol tartrate. Monitor her blood pressure. 10. Hyperlipidemia: Continue statin. 11. Ambulatory dysfunction: Continue PT/OT. Fall precaution 12. Coronary artery disease: Status post drug-eluting stents in 2010, on aspirin, metoprolol, isosorbide mononitrate, and atorvastatin. Consider echo. 13. History of cerebrovascular accident: On aspirin and statin. 14. History of anxiety: On Cymbalta. 15. History of deep venous thrombosis prophylaxis: on Lovenox. By CMS guidelines, a determination that the admission or continued stay is not medically necessary has been made by a member of the UR committee and a physician for this hospital stay, therefore a Code 44 will be completed and the Inpatient admission will be changed to outpatient. Total Time Total Time Spent Total Time Spent (In Minutes): 35 minutes Discharge Plan Discharge Items Patient Disposition: Transfer Snf Fac Reason For Visit: CHEST PAIN Discharge Diagnosis: Atypial chest pain Pneumonia: Pleural effusion: Diabetes mellitus, type 2: Chronic obstructive pulmonary disease: CKD (chronic kidney disease), stage III: Chronic diastolic heart failure: Hypertension: Hyperlipidemia: Ambulatory dysfunction: CAD (coronary artery disease): Cerebrovascular disease: Activity: Resume your previous activity Non-emergency contact: Primary Care Provider Call non-emergency contact if: you have any medication questions [facility] - Diet: Carb Consistent or DM2 and Heart Healthy Addtl Attending Provider Instructions: Follow up with primary care provider at [facility] You will need a repeat Chest Xray in 2 weeks is indicated to ensure the effusion is not increasing in size. (Your primary care can order it) You will need a follow-up chest CT scan in 3 months to ensure the airspace opacities have resolved. (Your primary care provider can order it) Continue oxygen supplement with 2 Liter nasal canula at night Continue oxygen supplement at rest or with activity you will need a 2 step exercise before discharge from [facility] to access your oxygen level at rest and ambulation Continue physical and occupational therapy Fall and aspiration precaution Speech therapy recommended minced and moist diet Continue monitor your blood sugar Continue monitor your blood pressure Pending Studies at Discharge: No Stand-Alone Forms: My [facility] Skilled Items Patient informed of condition?: Yes DNR: No Discharge Level of Care: Skilled Communicable Disease: No Discharge Prognosis: Stable Lines: None Urinary Catheter: No Medications and DC Order Prescriptions: Continued amlodipine [Norvasc] 10 mg tablet 10 mg PO QAM RF: 0 docusate sodium [Colace] 100 mg capsule 100 mg PO BID RF: 0 gabapentin 300 mg capsule 300 mg PO AMPM RF: 0 montelukast [Singulair] 10 mg tablet 10 mg PO HS RF: 0 isosorbide mononitrate 60 mg tablet extended release 24 hr 60 mg PO QAM RF: 0 furosemide 20 mg tablet 20 mg PO QAM RF: 0 tramadol 50 mg tablet 50 mg PO AMPM RF: 0 nitroglycerin 0.4 mg tablet, sublingual 0.4 mg SL Q5M PRN (Reason: Chest Pain) RF: 0 aspirin 81 mg Tablet,Delayed Release (Dr/Ec) 81 mg PO BID RF: 0 duloxetine [Cymbalta] 60 mg capsule,delayed release(DR/EC) 60 mg PO QAM RF: 0 melatonin 5 mg tablet 10 mg PO HS RF: 0 fluticasone propion-salmeterol [Advair Diskus] 250-50 mcg/dose blister with device 1 inh INHALATION BID RF: 0 cetirizine 10 mg Tablet 10 mg PO QDL RF: 0 acetaminophen 500 mg tablet 500 mg PO BID RF: 0 metoprolol tartrate 50 mg tablet 50 mg PO BIDM RF: 0 losartan 50 mg Tablet 50 mg PO QAM RF: 0 atorvastatin 40 mg Tablet 40 mg PO HS RF: 0 buspirone 5 mg Tablet 5 mg PO BID RF: 0 omeprazole 40 mg Capsule,Delayed Release(Dr/Ec) 40 mg PO QAM RF: 0 meclizine 25 mg Tablet 25 mg PO BID PRN (Reason: Vertigo) RF: 0 Cerovite Senior Tablet 1 tab PO DAILY RF: 0 metformin 500 mg tablet 1,000 mg PO DAILY RF: 0 vitamin B complex-folic acid [Balance B-50 (with folic acid)] 0.4 mg tablet 1 tab PO .DAILY AT NOON RF: 0 calcium carbonate-vitamin D3 [Oyster Shell Calcium-Vit D3] 500 mg(1,250mg) - 200 unit tablet 1 tab PO QDL RF: 0 oxybutynin chloride 10 mg tablet extended release 24hr 10 mg PO DAILY RF: 0 benzonatate [Tessalon Perles] 100 mg Capsule 100 mg PO TID Qty: 15 RF: 0 acetaminophen 325 mg Tablet 650 mg PO QID MDD 3g PRN (Reason: Fever Or Pain) RF: 0 menthol-zinc oxide [Calmoseptine] 0.44-20.6 % Ointment 1 applic TOPICAL QS RF: 0 nystatin 100,000 unit/gram Powder 1 applic TOPICAL BID RF: 0 Discontinued doxycycline hyclate 100 mg Capsule 100 mg PO BID Qty: 5 RF: 0 amoxicillin 500 mg Capsule 500 mg PO BID@1000,2200 Qty: 5 RF: 0 Discharge Orders: Discharge Order (Routine); Ordered 10/22/20 Ordered By: Trina Turner Admission Data Admit Date/Time: 10/21/20 07:00 Attending Provider: Trina Turner Admit Provider: Miguelangel Saucedo Primary Care Provider: Garcia Lira Other Providers: Miguelangel Saucedo ; Brody Contreras Other Interventions: Discharge Summary Assessment (RN) Last Done: 10/22/20 12:44
--- NOTE | 2020-10-22 13:31 | Communication Note ---
Date of Service: October 22, 2020 By CMS guidelines, a determination that the admission or continued stay is not medically necessary has been made by a member of the Utilization Review com graciela and a physician for this hospital stay. Therefore, a Code 44 will be completed and the inpatient admission will be changed to outpatient. Shannon Hitchcock DO
--- NOTE | 2020-10-22 13:31 | Hospitalist Progress Note ---
Date of Service October 22, 2020 Assessment & Plan Admission and Anticipated Discharge Date Admission Date: October 21, 2020 Results & Data Results & Data ([facility]) Vital Signs (Past 12 Hours) Vital Signs Temp Pulse Pulse Pulse Resp BP BP 10/22/20 12:44 37.3 C 76 66 20 157/57 H 164/67 H 10/22/20 11:35 37.3 C 66 20 157/57 H 10/22/20 08:49 76 164/67 H 10/22/20 07:25 36.9 C 75 18 193/66 H 10/22/20 07:12 72 10/22/20 03:20 37.3 C 70 20 172/71 H Pulse Ox 10/22/20 12:44 89 L 10/22/20 11:35 89 L 10/22/20 08:49 90 10/22/20 07:25 90 10/22/20 07:12 10/22/20 03:20 93
--- NOTE | 2020-10-23 05:46 | Electrocardiogram Report ---
Test Reason : Blood Pressure : / mmHG Vent. Rate : 078 BPM Atrial Rate : 078 BPM P-R Int : 178 ms QRS Dur : 086 ms QT Int : 406 ms P-R-T Axes : 066 018 060 degrees QTc Int : 462 ms Normal sinus rhythm Cannot rule out Anterior infarct , age undetermined Abnormal ECG When compared with ECG of 21-OCT-2020 02:51, No significant change was found Confirmed by Jeff Bernal ([id number]) on 10/23/2020 5:46:10 AM Referred By: Garcia Calderon Confirmed By:Jeff Bernal
== END 2020-10-22 13:28 | DRG 313 ==
LOC: ED 02:50 → INTOOBSV 07:00 → 2W 07:00
DX: J45.909 Unspecified asthma, uncomplicated; R07.89 Other chest pain; E11.9 Type 2 diabetes mellitus without complications; Z79.84 Long term (current) use of oral hypoglycemic drugs; J90 Pleural effusion, not elsewhere classified; N18.30 Chronic kidney disease, stage 3 unspecified; I25.2 Old myocardial infarction; Z79.899 Other long term (current) drug therapy; E78.5 Hyperlipidemia, unspecified; Z79.82 Long term (current) use of aspirin; Z68.34 Body mass index [BMI] 34.0-34.9, adult; I13.0 Hypertensive heart and chronic kidney disease with heart failure and stage 1 through stage 4 chronic kidney disease, or unspecified chronic kidney disease; Z88.8 Allergy status to other drugs, medicaments and biological substances; Z99.81 Dependence on supplemental oxygen; I87.2 Venous insufficiency (chronic) (peripheral); J44.9 Chronic obstructive pulmonary disease, unspecified; I25.10 Atherosclerotic heart disease of native coronary artery without angina pectoris; E66.01 Morbid (severe) obesity due to excess calories; R26.89 Other abnormalities of gait and mobility; I50.32 Chronic diastolic (congestive) heart failure

== ENCOUNTER 2021-01-26 13:31 | Inpatient (IN) ==
[2021-01-26] MEDS ORDERED: methylPREDNISolone 125 MG/2 ML VIAL IV STA (14:09)
[2021-01-26] MEDS ORDERED: ALBUT/IPRATROP 3MG/0.5MG NEB 3 ML VIAL INH STA (14:09)
--- NOTE | 2021-01-26 14:14 | Emergency Department Note ---
History of Present Illness General Chief complaint: Shortness of Breath/Dyspnea Stated complaint: HYPOXIA Time Seen by Provider: 01/26/21 14:00 Source: patient History of Present Illness Provider complaint: Shortness of breath Onset (ago): week(s) 2 Location: chest Pain Consistency: + intermittent Quality: + other (Wheezing) Relieved By: + other (Oxygen) Exacerbated By: + other (Exertion or talking) Associated symptoms: + cough (Chronic cough for years unchanged) and + shortness of breath; no chest pain, no fever/chills, no malaise or no nausea/vomiting This is an 85-year-old female sent over from her doctor's office for evaluation of possible pneumonia and hypoxemia. The patient states that she has been short of breath for 2 weeks intermittently. She does have history of COPD but is not on oxygen at home. Her O2 saturation was 88% at her doctor's office. She does feel better with the oxygen. She states that shortness of breath is worse when she tries to exert herself or when she talks for prolonged period of time. She has no associated chest discomfort or pain. She does have a cough which is chronic and unchanged today. She denies any loss of taste or smell. She did child ve diarrhea but this was after using laxatives for constipation. She denies any abdominal pain other than when she drinks cold liquids. She states this is a chronic problem for her. She has had no vomiting or urinary symptoms. She denies any leg swelling or pain. She is not a smoker. She did have a chest x- ray at her doctor's office which she states showed a pneumonia on the right side. Home Medications Medication Instructions Recorded Confirmed Type amlodipine 10 mg tablet (Norvasc) 10 mg PO QAM 11/28/17 01/26/21 History docusate sodium 100 mg capsule 100 mg PO BID cap 11/28/17 01/26/21 History (Colace) gabapentin 300 mg capsule 300 mg PO AMPM 11/28/17 01/26/21 History montelukast 10 mg tablet 10 mg PO HS 11/28/17 01/26/21 History (Singulair) aspirin 81 mg tablet,delayed 81 mg PO BID 06/16/18 01/26/21 History release duloxetine 60 mg capsule,delayed 60 mg PO QAM 06/16/18 01/26/21 History release (Cymbalta) furosemide 20 mg tablet 20 mg PO QAM 12/26/18 01/26/21 History isosorbide mononitrate 60 mg 60 mg PO QAM 12/26/18 01/26/21 History tablet,extended release 24 hr melatonin 5 mg tablet 10 mg PO HS tab 12/26/18 01/26/21 History nitroglycerin 0.4 mg sublingual 0.4 mg SL Q5M PRN 12/26/18 01/26/21 History tablet tramadol 50 mg tablet 50 mg PO AMPM 12/26/18 01/26/21 History acetaminophen 500 mg tablet 500 mg PO BID 09/16/19 01/26/21 History cetirizine 10 mg tablet 10 mg PO QDL 09/16/19 01/26/21 History fluticasone 250 mcg-salmeterol 50 1 inh INHALATION BID 09/16/19 01/26/21 History mcg/dose blistr powdr for inhalation (Advair Diskus) metoprolol tartrate 50 mg tablet 50 mg PO BIDM 09/16/19 01/26/21 History atorvastatin 40 mg tablet 40 mg PO HS 12/23/19 01/26/21 History buspirone 5 mg tablet 5 mg PO BID 12/23/19 01/26/21 History losartan 50 mg tablet 50 mg PO QAM 12/23/19 01/26/21 History meclizine 25 mg tablet 25 mg PO BID PRN 12/23/19 01/26/21 History zaleehpqxjjo-dhtsuzbv-vkqiqe 1 tab PO HS 12/23/19 01/26/21 History tablet (Cerovite Senior) omeprazole 40 mg capsule,delayed 40 mg PO QAM 12/23/19 01/26/21 History release calcium carbonate 500 mg (1,250 1 tab PO QDL 10/14/20 01/26/21 History mg)-vitamin D3 200 unit tablet (Oyster Shell Calcium-Vit D3) metformin 500 mg tablet 1,000 mg PO DAILY 10/14/20 01/26/21 History oxybutynin chloride 10 mg 10 mg PO DAILY 10/14/20 01/26/21 History tablet,extended release 24 hr vitamin B complex-folic acid 0.4 1 tab PO .DAILY AT NOON 10/14/20 01/26/21 History mg tablet (Balance B-50 (with folic acid)) acetaminophen 325 mg tablet 650 mg PO QID PRN MDD 3g 10/21/20 01/26/21 History Allergies Allergy/AdvReac Type Severity Reaction Status Date / Time azelastine Allergy Intermediate elevated bp Verified 01/26/21 16:04 trospium Allergy Intermediate hives Verified 01/26/21 16:04 azithromycin Allergy Mild Rash Verified 01/26/21 16:04 citalopram Allergy Unknown UNKNOWN Verified 01/26/21 16:04 chlorpheniramine AdvReac Intermediate ELEVATED BP Verified 01/26/21 16:04 Corticosteroids AdvReac Intermediate ELEVATED BP Verified 01/26/21 16:04 (Glucocorticoids) fexofenadine AdvReac Intermediate ELEVATED BP Verified 01/26/21 16:04 fluticasone AdvReac Intermediate ELEVATED BP Verified 01/26/21 16:04 hydrocodone AdvReac Intermediate ELEVATED BP Verified 01/26/21 16:04 magnesium salicylate AdvReac Intermediate ELEVATED BP Verified 01/26/21 16:04 salicylates AdvReac Intermediate ELEVATED BP Verified 01/26/21 16:04 Past Med/Surg History Medical History Ambulatory dysfunction Anxiety Anxiety (02/04/11) Arteriosclerotic coronary artery disease (02/04/11) Arthritis Asthma Carotid stenosis Cerebrovascular disease Chronic diastolic heart failure Degenerative disc disease Diabetic neuropathy Diverticulosis (02/04/11) GERD (gastroesophageal reflux disease) Hyperlipidemia Hypertension Morbid obesity with BMI of 45.0-49.9, adult (02/04/11) Myocardial Infarction OVER 10 YEARS AGO Peripheral edema Pneumonia Pressure sore ON COCCYX (FROM SITTING) Restless leg syndrome Unsteady gait when walking Urinary incontinence Venous insufficiency Surgical History History of anesthesia reaction SLOW TO WAKE UP History of cataract surgery History of colonoscopy History of esophagogastroduodenoscopy (EGD) History of heart artery stent OVER 10 YEARS AGO/1 STENT (FOLLOWS DR. NARAYANAN) History of tooth extraction Hx laparoscopic cholecystectomy Hx of tubal ligation Family History Other Adopted Cancer Social History Smoking Status: Never smoker Second Hand Exposure: No; Hx Alcohol Use: No Hx Substance Use: No Preferred Language: [place] Communication Ability: Effective Customer Service Technician Required: No Beliefs That Will Affect Care: None marital status: / marital status details: [email or web address] Current Living Situation: Personal Care Facility Current Living Situation Comment: [facility] current occupational status: retired Feels Safe at Home: Yes Assistive Devices: Oxygen - Continuous Review of Systems See HPI for pertinent positives & negatives. and A total of 10 systems reviewed and were otherwise negative Physical Exam Vital Signs Vital Signs - 24 hr 01/26/21 13:55 01/26/21 14:36 Temperature 36.9 C Temperature Source Oral Pulse Rate 70 Pulse Rate [Apical] 74 Pulse Rhythm Regular Pulse Strength Normal Respiratory Rate 16 22 Respiratory Effort / Characteristics Non-Labored Spontaneous Respiratory Depth Normal Respiratory Pattern Regular Blood Pressure 110/69 Blood Pressure Mean 82 Pulse Oximetry 88 L 95 Oxygen Delivery Method Room Air Nasal Cannula Oxygen Flow Rate 2 Sepsis Recent Fever Within 48 Hours No Sepsis New/Unexplained Change in Mental Status N/A Sepsis Action Taken by Nursing No Action Required Constitutional: Vital signs reviewed. Eyes: Pupils are equal round reactive to light. Conjunctiva are noninjected. ENT: Pharynx is clear without erythema or exudate. Mucous membranes are moist. Neck supple without meningeal signs. Respiratory: Expiratory wheezing bilaterally. Breath sounds are equal bilaterally. She is able to speak in full sentences. Cardiovascular: Regular rate and rhythm. No rubs or gallops. GI: Soft, nondistended and nontender. Bowel sounds are present. Musculoskeletal: No peripheral edema. No lower extremity tenderness. Integumentary: No cyanosis. or jaundice. Neurological: The patient is awake and alert. No focal deficits. Psychiatric: Normal affect. Not anxious appearing. Course Administered Medications Discontinued Medications Albuterol (Albut/Ipratrop 3mg/0.5mg Neb 3 Ml Vial) 3 ml INH NOW STA Stop: 01/26/21 14:10 Last Admin: 01/26/21 14:36 Dose: 3 ml Documented by: [id number] Cefepime HCl (Maxipime) 2,000 mg in 20 mls @ 5 mls/min IV NOW STA; Protocol Stop: 01/26/21 14:23 Last Admin: 01/26/21 14:39 Dose: 5 mls/min Documented by: [id number] Methylprednisolone (Methylprednisolone 125 Mg/2 Ml Vial) 125 mg IV NOW STA Stop: 01/26/21 14:10 Last Admin: 01/26/21 14:39 Dose: 125 mg Documented by: [id number] Medical Decision Making Differential Diagnosis COPD exacerbation, pneumonia, COVID-19, bronchitis, CHF Medical Records Attestation: I reviewed the patient's medical records. I did perform a limited focused review of portions of the patient's old chart on the electronic medical record. The patient was admitted to the hospital in October of this year for pneumonia and chest pain. She had a echocardiogram which showed no signs of wall motion abnormalities. She had a CT angiogram which showed no PE but which did demonstrate pleural effusions and pneumonia. Home Medications Current Medication List: was personally reviewed by me Laboratory Data Attestation: I reviewed the patient's lab results. Result diagrams: 01/26/21 13:32 01/26/21 13:32 Lab Results 01/26/21 01/26/21 01/26/21 Range/Units 13:32 13:32 14:30 WBC 9.91 (4.8-10.8) K/uL RBC 3.77 L (4.2-5.4) M/uL Hgb 10.2 L (12.0-16.0) g/dL Hct 33.9 L (37-47) % MCV 89.9 (80-100) fL MCH 27.1 (25-34) pg MCHC 30.1 L (32-36) g/dL RDW Std Deviation 53.3 H (36.4-46.3) fL RDW Coeff of Rakesh 16.3 H (11.5-14.5) % Plt Count 217 (130-400) K/uL MPV 10.7 H (7.4-10.4) fL Immature Gran % (Auto) 0.3 % Neut % (Auto) 63.0 % Lymph % (Auto) 22.6 % [place] % (Auto) 10.6 % Eos % (Auto) 3.2 % Baso % (Auto) 0.3 % Neut # (Auto) 6.24 (1.4-6.5) K/uL Lymph # (Auto) 2.24 (1.2-3.4) K/uL [place] # (Auto) 1.05 H (0.11-0.59) K/uL Eos # (Auto) 0.32 (0-0.5) K/uL Baso # (Auto) 0.03 (0-0.2) K/uL Immature Gran # (Auto) 0.03 H (0.00-0.02) K/uL Sodium 139 (136-145) mmol/L Potassium 4.9 (3.5-5.1) mmol/L Chloride 106 (98-107) mmol/L Carbon Dioxide 26 (21-32) mmol/L Anion Gap 8.0 (3-11) BUN 20 H (7-18) mg/dl Creatinine 1.15 (0.6-1.2) mg/dl Est Cr Clr Drug Dosing 38.3 ml/min Est GFR ( Amer) 51.0 ml/min Est GFR (Non-Af Amer) 44.0 ml/min BUN/Creatinine Ratio 17.7 (10-20) Glucose 140 H (70-99) mg/dl Calcium 8.7 (8.5-10.1) mg/dl Total Bilirubin 0.4 (0.2-1) mg/dl AST 25 (15-37) U/L ALT 22 (12-78) U/L Alkaline Phosphatase 69 (45-117) U/L Troponin I < 0.015 (0-0.045) ng/ml Total Protein 7.5 (6.4-8.2) gm/dl Albumin 2.5 L (3.4-5.0) gm/dl Globulin 5.0 H (2.5-4.0) gm/dl Albumin/Globulin Ratio 0.5 L (0.9-2) SARS-CoV-2 (PCR) NEGATIVE (Negative) ECG Data Attestation: I personally reviewed and interpreted this ECG as follows: Indication: + SOB/dyspnea Rate (beats per minute): 70 Rhythm: + normal sinus ECG [place]: + Normal ECG ST segments: no ST elevation ECG Findings: no PVCs MDM Narrative I did evaluate the patient as noted above. The patient is sent over from her doctor's office for hypoxemia as well as a infiltrate found on chest x-ray there. She has been short of breath for 2 weeks intermittently. She does have diffuse wheezing on examination. I did treat her with a DuoNeb. IV access was established. She was given Solu-Medrol IV. I did place an order for continuous cardiac monitoring. The monitor showed normal sinus rhythm at a rate of 70 bpm. I did order and personally review the patient's 12-lead EKG as described above. She has no evidence of acute ischemic changes. I did order blood cultures. I did order and review the patient's blood work as noted in the electronic medical record. CBC does not demonstrate leukocytosis. She does have a chronic anemia with a hemoglobin of 10.2 platelet count is 217. Electrolytes, LFTs and troponin are unremarkable. I did discuss the case with the ED pharmacist Radha. She recommended treating patient with cefepime IV. I did go ahead and treat the patient with cefepime. On reassessment she is feeling slightly better. She does have continued wheezing. She will be hospitalized for further care and evaluation. Covid testing is negative. I did discuss the case with the hospitalist and case packer. Impression & Plan Hypoxemia, Pneumonia, Acute exacerbation of chronic obstructive pulmonary disease, Chronic anemia Discharge Plan Visit Data Chief Complaint: Shortness of Breath/Dyspnea Stated Complaint: HYPOXIA ED Provider: Richard Diaz Discharge Problem: Hypoxemia, Pneumonia, Acute exacerbation of chronic obstructive pulmonary d isease, Chronic anemia Patient Disposition: Being Evaluated by Hospitalist Forms Stand Alone Forms: My [facility] [place] [employer] Prescriptions Prescriptions: No Action amlodipine [Norvasc] 10 mg tablet 10 mg PO QAM RF: 0 docusate sodium [Colace] 100 mg capsule 100 mg PO BID RF: 0 gabapentin 300 mg capsule 300 mg PO AMPM RF: 0 montelukast [Singulair] 10 mg tablet 10 mg PO HS RF: 0 isosorbide mononitrate 60 mg tablet extended release 24 hr 60 mg PO QAM RF: 0 furosemide 20 mg tablet 20 mg PO QAM RF: 0 tramadol 50 mg tablet 50 mg PO AMPM RF: 0 nitroglycerin 0.4 mg tablet, sublingual 0.4 mg SL Q5M PRN (Reason: Chest Pain) RF: 0 aspirin 81 mg Tablet,Delayed Release (Dr/Ec) 81 mg PO BID RF: 0 duloxetine [Cymbalta] 60 mg capsule,delayed release(DR/EC) 60 mg PO QAM RF: 0 melatonin 5 mg tablet 10 mg PO HS RF: 0 fluticasone propion-salmeterol [Advair Diskus] 250-50 mcg/dose blister with device 1 inh INHALATION BID RF: 0 cetirizine 10 mg Tablet 10 mg PO QDL RF: 0 acetaminophen 500 mg tablet 500 mg PO BID RF: 0 metoprolol tartrate 50 mg tablet 50 mg PO BIDM RF: 0 losartan 50 mg Tablet 50 mg PO QAM RF: 0 atorvastatin 40 mg Tablet 40 mg PO HS RF: 0 buspirone 5 mg Tablet 5 mg PO BID RF: 0 omeprazole 40 mg Capsule,Delayed Release(Dr/Ec) 40 mg PO QAM RF: 0 meclizine 25 mg Tablet 25 mg PO BID PRN (Reason: Vertigo) RF: 0 Cerovite Senior Tablet 1 tab PO HS RF: 0 metformin 500 mg tablet 1,000 mg PO DAILY RF: 0 vitamin B complex-folic acid [Balance B-50 (with folic acid)] 0.4 mg tablet 1 tab PO .DAILY AT NOON RF: 0 calcium carbonate-vitamin D3 [Oyster Shell Calcium-Vit D3] 500 mg(1,250mg) - 200 unit tablet 1 tab PO QDL RF: 0 oxybutynin chloride 10 mg tablet extended release 24hr 10 mg PO DAILY RF: 0 acetaminophen 325 mg Tablet 650 mg PO QID MDD 3g PRN (Reason: Fever Or Pain) RF: 0 Referrals Referrals: Garcia Lira [Primary Care Provider] - Discharge Problem: Pneumonia Qualifiers: Pneumonia type: due to unspecified organism Laterality: right Lung location: unspecified part of lung Qualified Code(s): J18.9 - Pneumonia, unspecified organism
[2021-01-26 14:18] LABS: Basophils # (auto) 0.03 K/uL (0-0.2); Basophils % (auto) 0.3 %; Eosinophils # (auto) 0.32 K/uL (0-0.5); Eosinophils % (auto) 3.2 %; Hematocrit (blood only) 33.9 % (37-47); Hemoglobin 10.2 g/dL (12.0-16.0); Immature Granulocytes # (auto) 0.03 K/uL (0.00-0.02); Immature Granulocytes % (auto) 0.3 %; Lymphocytes # (auto) 2.24 K/uL (1.2-3.4); Lymphocytes % (auto) 22.6 %; Mean Corpuscular Hemoglobin 27.1 pg (25-34); Mean Corpuscular Hgb Conc 30.1 g/dL (32-36); Mean Corpuscular Volume 89.9 fL (80-100); Mean Platelet Volume 10.7 fL (7.4-10.4); Monocytes # (auto) 1.05 K/uL (0.11-0.59); Monocytes % (auto) 10.6 %; Neutrophils # (auto) 6.24 K/uL (1.4-6.5); Platelet Count 217 K/uL (130-400); RDW Coefficient of Variation 16.3 % (11.5-14.5); RDW Standard Deviation 53.3 fL (36.4-46.3); Red Blood Count 3.77 M/uL (4.2-5.4); White Blood Count 9.91 K/uL (4.8-10.8)
[2021-01-26] MEDS ORDERED: CEFEPIME 2,000 MG/20 ML VIAL IV STA (14:20)
[2021-01-26 14:26] LABS: Alanine Aminotransferase 22 U/L (12-78); Albumin Level 2.5 gm/dl (3.4-5.0); Aspartate Aminotransferase 25 U/L (15-37); BUN Creatinine Ratio 17.7 (10-20); Blood Urea Nitrogen 20 mg/dl (7-18); Calcium 8.7 mg/dl (8.5-10.1); Carbon Dioxide 26 mmol/L (21-32); Chloride 106 mmol/L (98-107); Creatinine Clr Calc Pharmacy 38.3 ml/min; Glucose 140 mg/dl (70-99); Potassium 4.9 mmol/L (3.5-5.1); Sodium 139 mmol/L (136-145)
[2021-01-26 14:31] LABS: Albumin Globulin Ratio 0.5 (0.9-2); Alkaline Phosphatase 69 U/L (45-117); Bilirubin,Total 0.4 mg/dl (0.2-1); Total Protein 7.5 gm/dl (6.4-8.2); Troponin I < 0.015 ng/ml (0-0.045)
--- NOTE | 2021-01-26 16:29 | CT Scan Report ---
CT chest diagnostic wo con CLINICAL HISTORY: Follow-up pneumonia and bronchiectasis. Evaluate for possible fungal disease. COMPARISON STUDY: CTA chest from 10/21/2020 CT DOSE: 583.88 mGy.cm TECHNIQUE: Standard CT of the Chest was performed without IV contrast. A dose lowering technique was utilized adhering to the principles of ALARA. FINDINGS: Airway: The airway is clear. No endobronchial lesion is identified. Lungs: Compared to the previous examination, there has been complete resolution of previously identif ied airspace consolidation within the left upper lobe. No confluent alveolar opacities are identified . There is again evidence for bronchiectasis predominantly involving the lower lobes bilaterally, lef t greater than right with minimal mucous plugging present characteristic of mild chronic inflammatory change. There is also bronchiectasis and chronic parenchymal thickening and scarring involving the l ateral lingular segment. This is also unchanged. Stable subcentimeter nodular density is again seen within the right middle lobe measuring 4 mm and in the left upper lobe also measuring 4 mm and unchanged. Previously identified right upper lobe and ri ght lower lobe nodular densities have resolved, most likely represented mucous plugging in segments o f bronchiectasis. No new pulmonary nodules are identified. Minimal interstitial fibrotic changes are also present throughout both lungs. There is no evidence for honeycombing or idiopathic pulmonary fib rosis. Pleura: There has been complete resolution of bilateral pleural effusions. There is no evidence for p neumothorax. Mediastinum: There is no evidence for pathologic adenopathy on these limited noncontrast images. The heart size is within normal limits. Extensive coronary artery calcification is present. The thoracic aorta is within normal limits. Atherosclerotic calcification is seen involving the aortic arch and or igins of great vessels. There is no evidence for pericardial effusion. Upper abdomen: The adrenal glands are normal bilaterally. There is evidence for small hiatal hernia. Surgical clips are present previous cholecystectomy. Osseous structures: There is no acute osseous pathology. IMPRESSION: 1. Compared to the previous examination, there has been complete resolution of previously identified left upper lobe consolidation. 2. There is no acute chest disease on these noncontrast images. 3. Chronic bronchiectasis and mucous plugging is again seen with improvement from the previous examin ation as described. 4. Extensive coronary artery calcification and atherosclerotic calcification of the aortic arch and o rigin of great vessels is again seen. 5. Additional nonacute findings are delineated above. ACT 112: Negative or not required by law. Electronically signed by: Sebastian Salmeron M.D. 01/26/2021 4:28 PM
[2021-01-26] MEDS ORDERED: POLYETHYLENE (MIRALAX) 17 GM PACK PO PRN (18:31)
[2021-01-26] MEDS ORDERED: ONDANSETRON INJ 2 MG/ML 2 ML VIAL IV PRN (18:31)
[2021-01-26] MEDS ORDERED: ACETAMINOPHEN 325 MG TAB PO PRN (18:31)
--- NOTE | 2021-01-26 19:33 | History & Physical Report ---
Date of Service January 26, 2021 Assessment & Plan (1) Hypoxemia: (2) Pneumonia: (3) Acute exacerbation of chronic obstructive pulmonary disease: Plan: Hypoxia with new CXR finding: -Bacterial pneumonia with Asthma/COPD exacerbation -started the pt on doxy and ceftriaxone -due to wheezing will do prednisone, duoneb q4hrs -will get Sputum Cx -CT chest to better visualize the lungs -will transition the pt to room air as pt tolerates (4) Chronic anemia: Plan: - hgb is at her baseline (5) Diabetic peripheral neuropathy: Plan: -c/w gabapentin (6) Type 2 diabetes mellitus: Plan: -will hold metformin and start the pt on ISS (7) Chronic low back pain: Plan: -c/w tramadol (8) Dyslipidemia: Plan: -on statin Plan: Diet:diabetic diet DVT PPx:Lovenox Code Status:DNR/DNI Emergency Contact: (daughter-Ashley) Admission and Anticipated Discharge Date Admission Date: January 26, 2021 History of Present Illness Chief Complaint: SOB Primary Care Provider: [facility] Pt is a 85 y/o F with hx of Asthma/COPD, DMII, HLD, Nocturnal hypoxia, HTN, OJEDA cirrhosis, CAD, Urinary incontinence, Anxiety, Lumbar DDD, Osteoporosis was sent by her PCP for pneumonia on CXR. -per pt she has chronic cough but it has gotten worse recently. She is also having increased SOB with headache for 1 week. Denied any N/V, diarrhea or CP. Per pt she is not on oxygen at home. CXR from the clinic: Small nodular opacities throughout the lungs Allergies Allergy/AdvReac Type Severity Reaction Status Date / Time azelastine Allergy Intermediate elevated bp Verified 01/26/21 16:04 trospium Allergy Intermediate hives Verified 01/26/21 16:04 azithromycin Allergy Mild Rash Verified 01/26/21 16:04 citalopram Allergy Unknown UNKNOWN Verified 01/26/21 16:04 chlorpheniramine AdvReac Intermediate ELEVATED BP Verified 01/26/21 16:04 Corticosteroids AdvReac Intermediate ELEVATED BP Verified 01/26/21 16:04 (Glucocorticoids) fexofenadine AdvReac Intermediate ELEVATED BP Verified 01/26/21 16:04 fluticasone AdvReac Intermediate ELEVATED BP Verified 01/26/21 16:04 hydrocodone AdvReac Intermediate ELEVATED BP Verified 01/26/21 16:04 magnesium salicylate AdvReac Intermediate ELEVATED BP Verified 01/26/21 16:04 salicylates AdvReac Intermediate ELEVATED BP Verified 01/26/21 16:04 Home Medications Medication Instructions Recorded Confirmed Type amlodipine 10 mg tablet (Norvasc) 10 mg PO QAM 11/28/17 01/26/21 History docusate sodium 100 mg capsule 100 mg PO BID cap 11/28/17 01/26/21 History (Colace) gabapentin 300 mg capsule 300 mg PO AMPM 11/28/17 01/26/21 History montelukast 10 mg tablet 10 mg PO HS 11/28/17 01/26/21 History (Singulair) aspirin 81 mg tablet,delayed 81 mg PO BID 06/16/18 01/26/21 History release duloxetine 60 mg capsule,delayed 60 mg PO QAM 06/16/18 01/26/21 History release (Cymbalta) furosemide 20 mg tablet 20 mg PO QAM 12/26/18 01/26/21 History isosorbide mononitrate 60 mg 60 mg PO QAM 12/26/18 01/26/21 History tablet,extended release 24 hr melatonin 5 mg tablet 10 mg PO HS tab 12/26/18 01/26/21 History nitroglycerin 0.4 mg sublingual 0.4 mg SL Q5M PRN 12/26/18 01/26/21 History tablet tramadol 50 mg tablet 50 mg PO AMPM 12/26/18 01/26/21 History acetaminophen 500 mg tablet 500 mg PO BID 09/16/19 01/26/21 History cetirizine 10 mg tablet 10 mg PO QDL 09/16/19 01/26/21 History fluticasone 250 mcg-salmeterol 50 1 inh INHALATION BID 09/16/19 01/26/21 History mcg/dose blistr powdr for inhalation (Advair Diskus) metoprolol tartrate 50 mg tablet 50 mg PO BIDM 09/16/19 01/26/21 History atorvastatin 40 mg tablet 40 mg PO HS 12/23/19 01/26/21 History buspirone 5 mg tablet 5 mg PO BID 12/23/19 01/26/21 History losartan 50 mg tablet 50 mg PO QAM 12/23/19 01/26/21 History meclizine 25 mg tablet 25 mg PO BID PRN 12/23/19 01/26/21 History [id number]-[id number] 1 tab PO HS 12/23/19 01/26/21 History tablet (Cerovite Senior) omeprazole 40 mg capsule,delayed 40 mg PO QAM 12/23/19 01/26/21 History release calcium carbonate 500 mg (1,250 1 tab PO QDL 10/14/20 01/26/21 History mg)-vitamin D3 200 unit tablet (Oyster Shell Calcium-Vit D3) metformin 500 mg tablet 1,000 mg PO DAILY 10/14/20 01/26/21 History oxybutynin chloride 10 mg 10 mg PO DAILY 10/14/20 01/26/21 History tablet,extended release 24 hr vitamin B complex-folic acid 0.4 1 tab PO .DAILY AT NOON 10/14/20 01/26/21 History mg tablet (Balance B-50 (with folic acid)) acetaminophen 325 mg tablet 650 mg PO QID PRN MDD 3g 10/21/20 01/26/21 History Past Med/Surg History Medical History Ambulatory dysfunction Anxiety Anxiety (02/04/11) Arteriosclerotic coronary artery disease (02/04/11) Arthritis Asthma Carotid stenosis Cerebrovascular disease Chronic diastolic heart failure Degenerative disc disease Diabetic neuropathy Diverticulosis (02/04/11) GERD (gastroesophageal reflux disease) Hyperlipidemia Hypertension Morbid obesity with BMI of 45.0-49.9, adult (02/04/11) Myocardial Infarction OVER 10 YEARS AGO Peripheral edema Pneumonia Pressure sore ON COCCYX (FROM SITTING) Restless leg syndrome Unsteady gait when walking Urinary incontinence Venous insufficiency Surgical History History of anesthesia reaction SLOW TO WAKE UP History of cataract surgery History of colonoscopy History of esophagogastroduodenoscopy (EGD) History of heart artery stent OVER 10 YEARS AGO/1 STENT (FOLLOWS DR. NARAYANAN) History of tooth extraction Hx laparoscopic cholecystectomy Hx of tubal ligation Family History Other Adopted Cancer Social History Smoking Status: Never smoker Second Hand Exposure: No; Hx Alcohol Use: No Hx Substance Use: No Preferred Language: Estonian Communication Ability: Effective Booking Clerk Required: No Beliefs That Will Affect Care: None marital status: / marital status details: dmitriy Current Living Situation: Personal Care Facility Current Living Situation Comment: [facility] current occupational status: retired Feels Safe at Home: Yes Assistive Devices: Oxygen - Continuous Review of Systems Review of Systems: At least 10 Review of systems were reviewed and all negative except as indicated in HPI Physical Exam Physical Exam: General:.NC in place, NAD, obese pt HEENT:. Normocephalic and atraumatic, Normal Conjunctiva, EOMI, Sclera is non- icteric Lungs:.slightly decreased BS b/l with upper lobes expiratory wheezing Heart:. Normal S1, S2, no murmur Abdominal:. ND, Soft, NT Psych:. AAOx3, normal affect Results & Data Results & Data ([facility]) Vital Signs (Past 12 Hours) Vital Signs Temp Pulse Pulse Resp BP Pulse Ox 01/26/21 18:00 81 22 153/61 H 93 01/26/21 17:30 78 19 01/26/21 17:00 81 24 01/26/21 16:30 82 27 H 94 01/26/21 15:30 76 24 145/68 H 92 01/26/21 15:00 77 28 H 93 01/26/21 14:36 74 22 95 01/26/21 14:30 75 23 95 01/26/21 14:00 80 27 H 95 01/26/21 13:55 36.9 C 70 16 110/69 88 L 01/26/21 13:54 72 26 H 95 Laboratory Results Short CBC 01/26/21 Range/Units 13:32 WBC 9.91 (4.8-10.8) K/uL Hgb 10.2 L (12.0-16.0) g/dL Hct 33.9 L (37-47) % Plt Count 217 (130-400) K/uL BMP 01/26/21 13:32 Sodium 139 Potassium 4.9 Chloride 106 Carbon Dioxide 26 BUN 20 H Creatinine 1.15 Glucose 140 H Calcium 8.7 Cardiac Enzymes 01/26/21 Range/Units 13:32 Troponin I < 0.015 (0-0.045) ng/ml Liver Function 01/26/21 Range/Units 13:32 Total Bilirubin 0.4 (0.2-1) mg/dl AST 25 (15-37) U/L ALT 22 (12-78) U/L Alkaline Phosphatase 69 (45-117) U/L Albumin 2.5 L (3.4-5.0) gm/dl Code Status & VTE Plan VTE Prophylaxis Plan VTE Prophylaxis will be ordered: Yes (1) Pneumonia Laterality: right Lung location: unspecified part of lung Pneumonia type: due to unspecified organism Qualified Code(s): J18.9 - Pneumonia, unspecified organism
[2021-01-26] MEDS ORDERED: DEXTROSE 50% 50 ML SYRINGE IV PRN (19:41)
[2021-01-26] MEDS ORDERED: GLUCOSE 40% GEL 15 GM TUBE PO PRN (19:41)
[2021-01-26] MEDS ORDERED: GLUCOSE 10 TABS/TUBE PO PRN (19:41)
[2021-01-26] MEDS ORDERED: GLUCAGON FOR INJ 1 MG VIAL SQ PRN (19:41)
[2021-01-26] MEDS ORDERED: CARBOHYDRATES FOR HYPOGLYCEMIA PO PRN (19:41)
[2021-01-26] MEDS: DOXYCYCLINE HYCLATE 100 MG in DEXTROSE 5% 100 ML IV SCH (20:05)
[2021-01-26] MEDS: ALBUT/IPRATROP 3MG/0.5MG NEB 3 ML VIAL NEB SCH ×2 (20:36→23:15)
[2021-01-26] MEDS ORDERED: MECLIZINE HCL 25 MG TAB PO PRN (21:25)
[2021-01-26] MEDS: ATORVASTATIN 40 MG TAB PO SCH (23:12)
[2021-01-26] MEDS: busPIRone 5 MG TAB PO SCH (23:13)
[2021-01-26] MEDS: ASPIRIN 81 MG ECTAB PO SCH (23:13)
[2021-01-26] MEDS: DOCUSATE SODIUM 100 MG CAP PO SCH (23:13)
[2021-01-26] MEDS: INSULIN ASPART 100 UNITS/ML 3 ML PEN SC SCH (23:14)
[2021-01-26] MEDS: ENOXAPARIN INJ 40 MG/0.4 ML SYR SQ SCH (23:14)
[2021-01-26] MEDS: CEROVITE ADV FORMULA TAB PO SCH (23:15)
[2021-01-26] MEDS: MONTELUKAST SODIUM 10 MG TABLET PO SCH (23:15)
[2021-01-26] MEDS: MELATONIN 3 MG TAB PO SCH (23:15)
[2021-01-26] MEDS: GABAPENTIN 300 MG CAP PO SCH (23:16)
[2021-01-26] MEDS: traMADol HCL 50 MG TABLET PO SCH (23:21)
[2021-01-26] MEDS: cefTRIAXone SODIUM 2,000 MG in DEXTROSE 5% 50 ML IV SCH (23:21)
[2021-01-27] MEDS: ALBUT/IPRATROP 3MG/0.5MG NEB 3 ML VIAL NEB SCH ×6 (02:59→23:54)
[2021-01-27 06:25] LABS: Hemoglobin 9.7 g/dL (12.0-16.0); Mean Corpuscular Hemoglobin 27.1 pg (25-34); Mean Corpuscular Hgb Conc 30.3 g/dL (32-36); Mean Corpuscular Volume 89.4 fL (80-100); Mean Platelet Volume 10.3 fL (7.4-10.4); Platelet Count 187 K/uL (130-400); RDW Coefficient of Variation 16.1 % (11.5-14.5); RDW Standard Deviation 52.4 fL (36.4-46.3); Red Blood Count 3.58 M/uL (4.2-5.4); White Blood Count 7.26 K/uL (4.8-10.8)
[2021-01-27 06:51] LABS: Calcium 8.7 mg/dl (8.5-10.1); Creatinine Clr Calc Pharmacy 39.6 ml/min; Est GFR (African American) 53.2 ml/min; Est GFR (Non-African American) 45.9 ml/min; Potassium 4.6 mmol/L (3.5-5.1)
[2021-01-27] MEDS: DOXYCYCLINE HYCLATE 100 MG in DEXTROSE 5% 100 ML IV SCH ×2 (09:21→19:24)
[2021-01-27] MEDS: INSULIN ASPART 100 UNITS/ML 3 ML PEN SC SCH ×4 (09:21→20:23)
[2021-01-27] MEDS: FLUTICASONE/VILANTEROL 100/25MCG 14 PUFFS/INHALER INH SCH (09:22)
[2021-01-27] MEDS: ASPIRIN 81 MG ECTAB PO SCH ×2 (09:22→20:21)
[2021-01-27] MEDS: DULoxetine HCL 60 MG CAP PO SCH (09:22)
[2021-01-27] MEDS: DOCUSATE SODIUM 100 MG CAP PO SCH ×2 (09:22→20:20)
[2021-01-27] MEDS: busPIRone 5 MG TAB PO SCH ×2 (09:22→20:20)
[2021-01-27] MEDS: METOPROLOL TARTRATE 50 MG TAB PO SCH ×2 (09:22→17:32)
[2021-01-27] MEDS: amLODIPine BESYLATE 5 MG TAB PO SCH (09:22)
[2021-01-27] MEDS: OXYBUTYNIN CHLORIDE XL 5 MG TABCR PO SCH (09:23)
[2021-01-27] MEDS: GABAPENTIN 300 MG CAP PO SCH ×2 (09:23→20:20)
[2021-01-27] MEDS: predniSONE 50 MG TAB PO SCH (09:23)
[2021-01-27] MEDS: ISOSORBIDE MONO EXTENDED REL 60 MG TABCR PO SCH (09:23)
[2021-01-27] MEDS: FUROSEMIDE 20 MG TAB PO SCH (09:23)
[2021-01-27] MEDS: LOSARTAN POTASSIUM 50 MG TAB PO SCH (09:23)
[2021-01-27] MEDS: traMADol HCL 50 MG TABLET PO SCH ×2 (09:23→20:17)
[2021-01-27] MEDS: PANTOprazole 40 MG TAB PO SCH (09:23)
[2021-01-27] MEDS: CALCIUM 600MG + VIT D 400 IU TAB PO SCH (12:09)
[2021-01-27] MEDS: CETIRIZINE HCL 10 MG TABLET PO SCH (12:09)
[2021-01-27] MEDS: VITAMIN B COMPLEX TAB PO SCH (12:09)
--- NOTE | 2021-01-27 18:27 | Hospitalist Progress Note ---
Date of Service January 27, 2021 Assessment & Plan (1) Hypoxemia: (2) Pneumonia: (3) Acute exacerbation of chronic obstructive pulmonary disease: Plan: Hypoxia with new CXR finding: -Bacterial pneumonia with Asthma/COPD exacerbation -started the pt on doxy and ceftriaxone -due to wheezing started prednisone, duoneb q4hrs -Sputum Cx ordered -CT chest to better visualize the lungs IMPRESSION: 1. Compared to the previous examination, there has been complete resolution of previously identified left upper lobe consolidation. 2. There is no acute chest disease on these noncontrast images. 3. Chronic bronchiectasis and mucous plugging is again seen with improvement from the previous examination as described. 4. Extensive coronary artery calcification and atherosclerotic calcification of the aortic arch and origin of great vessels is again seen. 5. Additional nonacute findings are delineated above. -will transition the pt to room air as pt tolerates (4) Chronic anemia: Plan: - hgb is at her baseline (5) Diabetic peripheral neuropathy: Plan: -c/w gabapentin (6) Type 2 diabetes mellitus: Plan: -will hold metformin and start the pt on ISS (7) Chronic low back pain: Plan: -c/w tramadol (8) Dyslipidemia: Plan: -on statin Plan: Diet:diabetic diet DVT PPx:Lovenox Code Status:DNR/DNI Emergency Contact: (daughter-Ashley) Admission and Anticipated Discharge Date Admission Date: January 26, 2021 Subjective Patient seen in follow-up of hypoxemic respiratory failure, pneumonia, was sent by PCP due to pneumonia found on chest x-ray Currently still using supplemental oxygen Reports she is feeling little better Denies any chest pain, fever chills, abdominal pain, nausea vomiting She appears overall comfortable, still has cough Review of Systems Review of Systems: All systems reviewed & are unremarkable except as noted in Subjective Physical Exam Physical Exam: General: WD/WN eld erly F in NAD on s uppl. O2 via NC H EENT: Normocephali c and atraumatic, Normal Conjunctiva , EOMI, PERRL, Scl era is non-icteric Lungs: slightly d ecreased BS b/l wi th upper lobes , n o wheezing, rhonch i, crackles Heart: Normal S1, S2, no murmur Abdominal: + bowel sounds, ND , Soft, NT Psych: AAOx3, normal affe ct Results & Data Results & Data ([place]) Vital Signs (Past 12 Hours) Vital Signs Temp Pulse Pulse Pulse Resp BP Pulse Ox 01/27/21 15:48 88 18 91 01/27/21 15:00 83 01/27/21 14:42 36.9 C 87 20 166/69 H 92 01/27/21 12:33 86 24 142/67 H 95 01/27/21 11:33 82 19 97 01/27/21 07:50 102 H 23 190/75 H 99 01/27/21 07:11 94 H 19 92 Laboratory Results 01/27/21 01/27/21 01/27/21 Range/Units 16:45 11:38 08:33 WBC (4.8-10.8) K/uL RBC (4.2-5.4) M/uL Hgb (12.0-16.0) g/dL Hct (37-47) % MCV (80-100) fL MCH (25-34) pg MCHC (32-36) g/dL RDW Std Deviation (36.4-46.3) fL RDW Coeff of Rakesh (11.5-14.5) % Plt Count (130-400) K/uL MPV (7.4-10.4) fL Sodium (136-145) mmol/L Potassium (3.5-5.1) mmol/L Chloride (98-107) mmol/L Carbon Dioxide (21-32) mmol/L Anion Gap (3-11) BUN (7-18) mg/dl Creatinine (0.6-1.2) mg/dl Est Cr Clr Drug Dosing ml/min Est GFR ( Amer) ml/min Est GFR (Non-Af Amer) ml/min BUN/Creatinine Ratio (10-20) Glucose (70-99) mg/dl POC Glucose 217 H 244 H 189 H (70-99) mg/dl Calcium (8.5-10.1) mg/dl Nasal Screen MRSA (PCR) (Negative) 01/27/21 01/27/21 01/27/21 Range/Units 05:51 05:51 00:40 WBC 7.26 (4.8-10.8) K/uL RBC 3.58 L (4.2-5.4) M/uL Hgb 9.7 L (12.0-16.0) g/dL Hct 32.0 L (37-47) % MCV 89.4 (80-100) fL MCH 27.1 (25-34) pg MCHC 30.3 L (32-36) g/dL RDW Std Deviation 52.4 H (36.4-46.3) fL RDW Coeff of Rakesh 16.1 H (11.5-14.5) % Plt Count 187 (130-400) K/uL MPV 10.3 (7.4-10.4) fL Sodium 141 (136-145) mmol/L Potassium 4.6 (3.5-5.1) mmol/L Chloride 105 (98-107) mmol/L Carbon Dioxide 28 (21-32) mmol/L Anion Gap 7.0 (3-11) BUN 24 H (7-18) mg/dl Creatinine 1.11 (0.6-1.2) mg/dl Est Cr Clr Drug Dosing 39.6 ml/min Est GFR ( Amer) 53.2 ml/min Est GFR (Non-Af Amer) 45.9 ml/min BUN/Creatinine Ratio 22.0 H (10-20) Glucose 229 H (70-99) mg/dl POC Glucose (70-99) mg/dl Calcium 8.7 (8.5-10.1) mg/dl Nasal Screen MRSA (PCR) Negative (Negative) 01/26/21 01/26/21 Range/Units 23:08 20:02 WBC (4.8-10.8) K/uL RBC (4.2-5.4) M/uL Hgb (12.0-16.0) g/dL Hct (37-47) % MCV (80-100) fL MCH (25-34) pg MCHC (32-36) g/dL RDW Std Deviation (36.4-46.3) fL RDW Coeff of Rakesh (11.5-14.5) % Plt Count (130-400) K/uL MPV (7.4-10.4) fL Sodium (136-145) mmol/L Potassium (3.5-5.1) mmol/L Chloride (98-107) mmol/L Carbon Dioxide (21-32) mmol/L Anion Gap (3-11) BUN (7-18) mg/dl Creatinine (0.6-1.2) mg/dl Est Cr Clr Drug Dosing ml/min Est GFR ( Amer) ml/min Est GFR (Non-Af Amer) ml/min BUN/Creatinine Ratio (10-20) Glucose (70-99) mg/dl POC Glucose 319 H* 236 H (70-99) mg/dl Calcium (8.5-10.1) mg/dl Nasal Screen MRSA (PCR) (Negative) Medications Administered Current Inpatient Medications Acetaminophen (Acetaminophen 325 Mg Tab) 650 mg PO Q4H PRN PRN Reason: Pain or Fever Stop: 02/25/21 18:30 Albuterol (Albut/Ipratrop 3mg/0.5mg Neb 3 Ml Vial) 3 ml NEB Q4R LEYDI Stop: 02/25/21 18:59 Last Admin: 01/27/21 15:47 Dose: 3 ml Documented by: Amlodipine Besylate (Amlodipine Besylate 5 Mg Tab) 10 mg PO QAM LEYDI Stop: 02/26/21 08:59 Last Admin: 01/27/21 09:22 Dose: 10 mg Documented by: Aspirin (Aspirin 81 Mg Ectab) 81 mg PO BID LEYDI Stop: 02/25/21 20:59 Last Admin: 01/27/21 09:22 Dose: 81 mg Documented by: Atorvastatin Calcium (Atorvastatin 40 Mg Tab) 40 mg PO HS LEYDI Stop: 02/25/21 20:59 Last Admin: 01/26/21 23:12 Dose: 40 mg Documented by: Buspirone HCl (Buspirone 5 Mg Tab) 5 mg PO BID LEYDI Stop: 02/25/21 20:59 Last Admin: 01/27/21 09:22 Dose: 5 mg Documented by: Cetirizine HCl (Cetirizine Hcl 10 Mg Tablet) 10 mg PO QDL LEYDI Stop: 02/26/21 11:29 Last Admin: 01/27/21 12:09 Dose: 10 mg Documented by: Dextrose (Dextrose 50% 50 Ml Syringe) 25 - 50 ml IV UD PRN; Protocol PRN Reason: Hypoglycemia Protocol Stop: 02/25/21 19:40 Docusate Sodium (Docusate Sodium 100 Mg Cap) 100 mg PO BID LEYDI Stop: 02/25/21 20:59 Last Admin: 01/27/21 09:22 Dose: 100 mg Documented by: Duloxetine HCl (Duloxetine Hcl 60 Mg Cap) 60 mg PO QAM [facility] Stop: 02/26/21 08:59 Last Admin: 01/27/21 09:22 Dose: 60 mg Documented by: Enoxaparin Sodium (Enoxaparin Inj 40 Mg/0.4 Ml Syr) 40 mg SQ Q24H [facility] Stop: 02/25/21 18:30 Last Admin: 01/26/21 23:14 Dose: 40 mg Documented by: Fluticasone/Vilanterol (Fluticasone/Vilanterol 100/25mcg 14 Puffs/Inhaler) 1 puffs INH DAILY LEYDI Stop: 02/26/21 08:59 Last Admin: 01/27/21 09:22 Dose: 1 puffs Documented by: Furosemide (Furosemide 20 Mg Tab) 20 mg PO QAM [facility] Stop: 02/26/21 08:59 Last Admin: 01/27/21 09:23 Dose: 20 mg Documented by: Gabapentin (Gabapentin 300 Mg Cap) 300 mg PO BID [facility] Stop: 02/25/21 21:59 Last Admin: 01/27/21 09:23 Dose: 300 mg Documented by: Glucagon (Glucagon For Inj 1 Mg Vial) 1 mg SQ UD PRN; Protocol PRN Reason: Hypoglycemia Protocol Stop: 02/25/21 19:40 Glucose (Glucose 10 Tabs/Tube) 4 - 8 tabs PO UD PRN; Protocol PRN Reason: Hypoglycemia Protocol Stop: 02/25/21 19:40 Glucose (Glucose 40% Gel 15 Gm Tube) 15 - 30 gm PO UD PRN; Protocol PRN Reason: Hypoglycemia Protocol Stop: 02/25/21 19:40 Ceftriaxone Sodium 2,000 mg/ (Dextrose) 70 mls @ 100 mls/hr IV Q24H [facility]; Protocol Stop: 02/01/21 22:41 Last Infusion: 01/27/21 00:09 Dose: Infused Documented by: Doxycycline Hyclate 100 mg/ (Dextrose) 110 mls @ 50 mls/hr IV Q12H [facility] Stop: 02/02/21 18:30 Last Infusion: 01/27/21 12:10 Dose: Infused Documented by: Insulin Aspart (Insulin Aspart 100 Units/Ml 3 Ml Pen) 0 units SC ACHS [facility] Stop: 02/25/21 20:59 Last Admin: 01/27/21 17:32 Dose: 2 units Documented by: Isosorbide Mononitrate (Isosorbide [place] Extended Rel 60 Mg Tabcr) 60 mg PO QAM [facility] Stop: 02/26/21 08:59 Last Admin: 01/27/21 09:23 Dose: 60 mg Documented by: Losartan Potassium (Losartan Potassium 50 Mg Tab) 50 mg PO QAM [facility] Stop: 02/26/21 08:59 Last Admin: 01/27/21 09:23 Dose: 50 mg Documented by: Meclizine HCl (Meclizine Hcl 25 Mg Tab) 25 mg PO BID PRN PRN Reason: Vertigo Stop: 02/25/21 21:24 Melatonin (Melatonin 3 Mg Tab) 9 mg PO HS [facility] Stop: 02/25/21 20:59 Last Admin: 01/26/21 23:15 Dose: 9 mg Documented by: Metoprolol Tartrate (Metoprolol Tartrate 50 Mg Tab) 50 mg PO BIDM [facility] Stop: 02/26/21 07:59 Last Admin: 01/27/21 17:32 Dose: 50 mg Documented by: Miscellaneous (Carbohydrates For Hypoglycemia ) 15 - 30 gm PO UD PRN PRN Reason: Hypoglycemia Protocol Stop: 02/25/21 19:40 Montelukast Sodium (Montelukast Sodium 10 Mg Tablet) 10 mg PO HS [facility] Stop: 02/25/21 20:59 Last Admin: 01/26/21 23:15 Dose: 10 mg Documented by: Multivitamins/Minerals (Calcium 600mg + Vit D 400 Iu Tab) 1 tab PO QDL [facility] Stop: 02/26/21 11:29 Last Admin: 01/27/21 12:09 Dose: 1 tab Documented by: Multivitamins/Minerals (Cerovite Adv Formula Tab) 1 tab PO HS [facility] Stop: 02/25/21 20:59 Last Admin: 01/26/21 23:15 Dose: 1 tab Documented by: Ondansetron HCl (Ondansetron Inj 2 Mg/Ml 2 Ml Vial) 4 mg IV Q6H PRN PRN Reason: Nausea Stop: 02/25/21 18:30 Oxybutynin Chloride (Oxybutynin Chloride Xl 5 Mg Tabcr) 10 mg PO DAILY [facility] Stop: 02/26/21 08:59 Last Admin: 01/27/21 09:23 Dose: 10 mg Documented by: Pantoprazole Sodium (Pantoprazole 40 Mg Tab) 40 mg PO QAM [facility] Stop: 02/26/21 08:59 Last Admin: 01/27/21 09:23 Dose: 40 mg Documented by: Polyethylene Glycol (Polyethylene (Miralax) 17 Gm Pack) 17 gm PO DAILY PRN PRN Reason: Constipation Stop: 02/25/21 18:30 Prednisone (Prednisone 50 Mg Tab) 50 mg PO DAILY LEYDI Stop: 01/31/21 09:01 Last Admin: 01/27/21 09:23 Dose: 50 mg Documented by: Tramadol HCl (Tramadol Hcl 50 Mg Tablet) 50 mg PO BID [facility] Stop: 02/25/21 21:59 Last Admin: 01/27/21 09:23 Dose: 50 mg Documented by: Vitamin B Complex (Vitamin B Complex Tab) 1 tab PO QDL [facility] Stop: 02/26/21 11:29 Last Admin: 01/27/21 12:09 Dose: 1 tab Documented by: (1) Pneumonia Laterality: right Lung location: unspecified part of lung Pneumonia type: due to unspecified organism Qualified Code(s): J18.9 - Pneumonia, unspecified organism
[2021-01-27] MEDS: MELATONIN 3 MG TAB PO SCH (20:19)
[2021-01-27] MEDS: CEROVITE ADV FORMULA TAB PO SCH (20:19)
[2021-01-27] MEDS: MONTELUKAST SODIUM 10 MG TABLET PO SCH (20:19)
[2021-01-27] MEDS: ENOXAPARIN INJ 40 MG/0.4 ML SYR SQ SCH (20:21)
[2021-01-27] MEDS: ATORVASTATIN 40 MG TAB PO SCH (20:21)
[2021-01-27] MEDS: guaiFENesin 600 MG TABCR PO SCH (22:25)
[2021-01-27] MEDS: cefTRIAXone SODIUM 2,000 MG in DEXTROSE 5% 50 ML IV SCH (22:43)
--- NOTE | 2021-01-27 22:58 | Electrocardiogram Report ---
Test Reason : Blood Pressure : / mmHG Vent. Rate : 070 BPM Atrial Rate : 070 BPM P-R Int : 152 ms QRS Dur : 058 ms QT Int : 394 ms P-R-T Axes : 051 -03 051 degrees QTc Int : 425 ms Normal sinus rhythm Possible Anterior infarct (cited on or before 22-OCT-2020) Abnormal ECG When compared with ECG of 22-OCT-2020 06:27, QRS duration has decreased Questionable change in initial forces of Anterior leads Confirmed by Jeff Bernal ([id number]) on 01/27/2021 10:58:40 PM Referred By: REFERRED SELF Confirmed By:Jeff Bernal
[2021-01-28] MEDS: ALBUT/IPRATROP 3MG/0.5MG NEB 3 ML VIAL NEB SCH ×6 (03:18→22:47)
[2021-01-28] MEDS: DOXYCYCLINE HYCLATE 100 MG in DEXTROSE 5% 100 ML IV SCH ×2 (06:16→18:15)
[2021-01-28] MEDS: MICONAZOLE NITRATE POWDER 43 GM EXT PRN ×2 (06:24→19:46)
[2021-01-28 07:01] LABS: Hematocrit (blood only) 34.4 % (37-47); Hemoglobin 10.3 g/dL (12.0-16.0); Mean Corpuscular Hemoglobin 26.9 pg (25-34); Mean Corpuscular Hgb Conc 29.9 g/dL (32-36); Mean Corpuscular Volume 89.8 fL (80-100); Mean Platelet Volume 10.3 fL (7.4-10.4); Platelet Count 199 K/uL (130-400); RDW Coefficient of Variation 16.3 % (11.5-14.5); RDW Standard Deviation 53.3 fL (36.4-46.3); Red Blood Count 3.83 M/uL (4.2-5.4); White Blood Count 12.13 K/uL (4.8-10.8)
[2021-01-28 07:39] LABS: BUN Creatinine Ratio 25.2 (10-20); Calcium 9.4 mg/dl (8.5-10.1); Creatinine Clr Calc Pharmacy 37.8 ml/min; Potassium 4.2 mmol/L (3.5-5.1)
[2021-01-28] MEDS: ASPIRIN 81 MG ECTAB PO SCH ×2 (08:22→21:07)
[2021-01-28] MEDS: amLODIPine BESYLATE 5 MG TAB PO SCH (08:23)
[2021-01-28] MEDS: DULoxetine HCL 60 MG CAP PO SCH (08:23)
[2021-01-28] MEDS: LOSARTAN POTASSIUM 50 MG TAB PO SCH (08:23)
[2021-01-28] MEDS: GABAPENTIN 300 MG CAP PO SCH ×2 (08:24→21:08)
[2021-01-28] MEDS: busPIRone 5 MG TAB PO SCH ×2 (08:24→21:08)
[2021-01-28] MEDS: DOCUSATE SODIUM 100 MG CAP PO SCH ×2 (08:24→21:07)
[2021-01-28] MEDS: PANTOprazole 40 MG TAB PO SCH (08:25)
[2021-01-28] MEDS: METOPROLOL TARTRATE 50 MG TAB PO SCH ×2 (08:25→17:49)
[2021-01-28] MEDS: FUROSEMIDE 20 MG TAB PO SCH (08:25)
[2021-01-28] MEDS: OXYBUTYNIN CHLORIDE XL 5 MG TABCR PO SCH (08:25)
[2021-01-28] MEDS: FLUTICASONE/VILANTEROL 100/25MCG 14 PUFFS/INHALER INH SCH (08:27)
[2021-01-28] MEDS: ISOSORBIDE MONO EXTENDED REL 60 MG TABCR PO SCH (08:28)
[2021-01-28] MEDS: predniSONE 50 MG TAB PO SCH (08:29)
[2021-01-28] MEDS: guaiFENesin 600 MG TABCR PO SCH ×2 (08:42→21:09)
[2021-01-28] MEDS: traMADol HCL 50 MG TABLET PO SCH ×2 (08:42→21:06)
[2021-01-28] MEDS: INSULIN ASPART 100 UNITS/ML 3 ML PEN SC SCH ×4 (08:46→21:10)
[2021-01-28] MEDS: VITAMIN B COMPLEX TAB PO SCH (11:25)
[2021-01-28] MEDS: CALCIUM 600MG + VIT D 400 IU TAB PO SCH (11:25)
[2021-01-28] MEDS: CETIRIZINE HCL 10 MG TABLET PO SCH (11:25)
--- NOTE | 2021-01-28 14:15 | Hospitalist Progress Note ---
Date of Service January 28, 2021 Assessment & Plan (1) Hypoxemia: (2) Pneumonia: (3) Acute exacerbation of chronic obstructive pulmonary disease: Plan: Pt is a 85 y/o F with hx of Asthma/COPD, DMII, HLD, Nocturnal hypoxia, HTN, OJEDA cirrhosis, CAD, Urinary incontinence, Anxiety, Lumbar DDD, Osteoporosis was sent by her PCP for pneumonia on CXR. -per pt she has chronic cough but it has gotten worse recently. She is also having increased SOB with headache for 1 week. Denied any N/V, diarrhea or CP. Per pt she is not on oxygen at home. Hypoxia with new CXR finding: -Bacterial pneumonia with Asthma/COPD exacerbation -started the pt on doxy and ceftriaxone -due to wheezing started prednisone, duoneb q4hrs -Sputum Cx ordered- not collected -CT chest to better visualize the lungs IMPRESSION: 1. Compared to the previous examination, there has been complete resolution of previously identified left upper lobe consolidation. 2. There is no acute chest disease on these noncontrast images. 3. Chronic bronchiectasis and mucous plugging is again seen with improvement from the previous examination as described. 4. Extensive coronary artery calcification and atherosclerotic calcification of the aortic arch and origin of great vessels is again seen. 5. Additional nonacute findings are delineated above. -will transition the pt to room air as pt tolerates (4) Chronic anemia: Plan: - hgb is at her baseline (5) Diabetic peripheral neuropathy: Plan: -c/w gabapentin (6) Type 2 diabetes mellitus: Plan: -will hold metformin and start the pt on ISS (7) Chronic low back pain: Plan: -c/w tramadol (8) Dyslipidemia: Plan: -on statin Plan: Diet:diabetic diet DVT PPx:Lovenox Code Status:DNR/DNI Emergency Contact: (daughter-Ashley) Admission and Anticipated Discharge Date Admission Date: January 26, 2021 Subjective Patient seen in follow-up of hypoxemic respiratory failure, pneumonia, was sent by PCP due to pneumonia found on chest x-ray Currently still using supplemental oxygen Reports she is feeling little better Denies any chest pain, fever chills, abdominal pain, nausea vomiting She appears overall comfortable, still has cough (pt says she has chronic cough, no sputum production) Review of Systems Review of Systems: All systems reviewed & are unremarkable except as noted in Subjective Physical Exam Physical Exam: General: WD/WN eld erly F in NAD on s uppl. O2 via NC H EENT: Normocephali c and atraumatic, Normal Conjunctiva , EOMI, PERRL, Scl era is non-icteric Lungs: slightly d ecreased BS b/l wi th upper lobes , n o wheezing, rhonch i, crackles Heart: Normal S1, S2, no murmur Abdominal: + bowel sounds, ND , Soft, NT Psych: AAOx3, normal affe ct Results & Data Results & Data ([facility]) Vital Signs (Past 12 Hours) Vital Signs Temp Pulse Pulse Resp BP BP Pulse Ox 01/28/21 12:00 36.7 C 69 18 164/66 H 97 01/28/21 11:08 68 18 95 01/28/21 07:10 85 18 97 01/28/21 07:00 36.9 C 89 18 189/74 H 99 01/28/21 06:38 85 01/28/21 03:53 37 C 74 16 113/64 93 01/28/21 03:19 80 17 92 Laboratory Results 01/28/21 01/28/21 01/28/21 Range/Units 11:42 07:41 06:20 WBC (4.8-10.8) K/uL RBC (4.2-5.4) M/uL Hgb (12.0-16.0) g/dL Hct (37-47) % MCV (80-100) fL MCH (25-34) pg MCHC (32-36) g/dL RDW Std Deviation (36.4-46.3) fL RDW Coeff of Rakesh (11.5-14.5) % Plt Count (130-400) K/uL MPV (7.4-10.4) fL Sodium 137 (136-145) mmol/L Potassium 4.2 (3.5-5.1) mmol/L Chloride 103 (98-107) mmol/L Carbon Dioxide 30 (21-32) mmol/L Anion Gap 4.0 (3-11) BUN 29 H (7-18) mg/dl Creatinine 1.15 (0.6-1.2) mg/dl Est Cr Clr Drug Dosing 37.8 ml/min Est GFR ( Amer) 51.0 ml/min Est GFR (Non-Af Amer) 44.0 ml/min BUN/Creatinine Ratio 25.2 H (10-20) Glucose 141 H (70-99) mg/dl POC Glucose 174 H 152 H (70-99) mg/dl Calcium 9.4 (8.5-10.1) mg/dl 01/28/21 01/27/21 01/27/21 Range/Units 06:20 20:13 16:45 WBC 12.13 H (4.8-10.8) K/uL RBC 3.83 L (4.2-5.4) M/uL Hgb 10.3 L (12.0-16.0) g/dL Hct 34.4 L (37-47) % MCV 89.8 (80-100) fL MCH 26.9 (25-34) pg MCHC 29.9 L (32-36) g/dL RDW Std Deviation 53.3 H (36.4-46.3) fL RDW Coeff of Rakesh 16.3 H (11.5-14.5) % Plt Count 199 (130-400) K/uL MPV 10.3 (7.4-10.4) fL Sodium (136-145) mmol/L Potassium (3.5-5.1) mmol/L Chloride (98-107) mmol/L Carbon Dioxide (21-32) mmol/L Anion Gap (3-11) BUN (7-18) mg/dl Creatinine (0.6-1.2) mg/dl Est Cr Clr Drug Dosing ml/min Est GFR ( Amer) ml/min Est GFR (Non-Af Amer) ml/min BUN/Creatinine Ratio (10-20) Glucose (70-99) mg/dl POC Glucose 220 H 217 H (70-99) mg/dl Calcium (8.5-10.1) mg/dl Medications Administered Current Inpatient Medications Acetaminophen (Acetaminophen 325 Mg Tab) 650 mg PO Q4H PRN PRN Reason: Pain or Fever Stop: 02/25/21 18:30 Albuterol (Albut/Ipratrop 3mg/0.5mg Neb 3 Ml Vial) 3 ml NEB Q4R [facility] Stop: 02/25/21 18:59 Last Admin: 01/28/21 11:08 Dose: 3 ml Documented by: Amlodipine Besylate (Amlodipine Besylate 5 Mg Tab) 10 mg PO QAM [facility] Stop: 02/26/21 08:59 Last Admin: 01/28/21 08:23 Dose: 10 mg Documented by: Aspirin (Aspirin 81 Mg Ectab) 81 mg PO BID [facility] Stop: 02/25/21 20:59 Last Admin: 01/28/21 08:22 Dose: 81 mg Documented by: Atorvastatin Calcium (Atorvastatin 40 Mg Tab) 40 mg PO HS [facility] Stop: 02/25/21 20:59 Last Admin: 01/27/21 20:21 Dose: 40 mg Documented by: Buspirone HCl (Buspirone 5 Mg Tab) 5 mg PO BID [facility] Stop: 02/25/21 20:59 Last Admin: 01/28/21 08:24 Dose: 5 mg Documented by: Cetirizine HCl (Cetirizine Hcl 10 Mg Tablet) 10 mg PO QDL [facility] Stop: 02/26/21 11:29 Last Admin: 01/28/21 11:25 Dose: 10 mg Documented by: Dextrose (Dextrose 50% 50 Ml Syringe) 25 - 50 ml IV UD PRN; Protocol PRN Reason: Hypoglycemia Protocol Stop: 02/25/21 19:40 Docusate Sodium (Docusate Sodium 100 Mg Cap) 100 mg PO BID [facility] Stop: 02/25/21 20:59 Last Admin: 01/28/21 08:24 Dose: 100 mg Documented by: Duloxetine HCl (Duloxetine Hcl 60 Mg Cap) 60 mg PO QAM [facility] Stop: 02/26/21 08:59 Last Admin: 01/28/21 08:23 Dose: 60 mg Documented by: Enoxaparin Sodium (Enoxaparin Inj 40 Mg/0.4 Ml Syr) 40 mg SQ Q24H [facility] Stop: 02/25/21 18:30 Last Admin: 01/27/21 20:21 Dose: 40 mg Documented by: Fluticasone/Vilanterol (Fluticasone/Vilanterol 100/25mcg 14 Puffs/Inhaler) 1 puffs INH DAILY [facility] Stop: 02/26/21 08:59 Last Admin: 01/28/21 08:27 Dose: 1 puffs Documented by: Furosemide (Furosemide 20 Mg Tab) 20 mg PO QAM [facility] Stop: 02/26/21 08:59 Last Admin: 01/28/21 08:25 Dose: 20 mg Documented by: Gabapentin (Gabapentin 300 Mg Cap) 300 mg PO BID [facility] Stop: 02/25/21 21:59 Last Admin: 01/28/21 08:24 Dose: 300 mg Documented by: Glucagon (Glucagon For Inj 1 Mg Vial) 1 mg SQ UD PRN; Protocol PRN Reason: Hypoglycemia Protocol Stop: 02/25/21 19:40 Glucose (Glucose 10 Tabs/Tube) 4 - 8 tabs PO UD PRN; Protocol PRN Reason: Hypoglycemia Protocol Stop: 02/25/21 19:40 Glucose (Glucose 40% Gel 15 Gm Tube) 15 - 30 gm PO UD PRN; Protocol PRN Reason: Hypoglycemia Protocol Stop: 02/25/21 19:40 Guaifenesin (Guaifenesin 600 Mg Tabcr) 600 mg PO Q12 [facility] Stop: 02/26/21 20:59 Last Admin: 01/28/21 08:42 Dose: 600 mg Documented by: Ceftriaxone Sodium 2,000 mg/ (Dextrose) 70 mls @ 100 mls/hr IV Q24H [facility]; Protocol Stop: 02/01/21 22:41 Last Infusion: 01/27/21 23:44 Dose: Infused Documented by: Doxycycline Hyclate 100 mg/ (Dextrose) 110 mls @ 50 mls/hr IV Q12H [facility] Stop: 02/02/21 18:30 Last Infusion: 01/28/21 08:30 Dose: Infused Documented by: Insulin Aspart (Insulin Aspart 100 Units/Ml 3 Ml Pen) 0 units SC ACHS [facility] Stop: 02/25/21 20:59 Last Admin: 01/28/21 12:09 Dose: Not Given Documented by: Isosorbide Mononitrate (Isosorbide [place] Extended Rel 60 Mg Tabcr) 60 mg PO QAM [facility] Stop: 02/26/21 08:59 Last Admin: 01/28/21 08:28 Dose: 60 mg Documented by: Losartan Potassium (Losartan Potassium 50 Mg Tab) 50 mg PO QAM [facility] Stop: 02/26/21 08:59 Last Admin: 01/28/21 08:23 Dose: 50 mg Documented by: Meclizine HCl (Meclizine Hcl 25 Mg Tab) 25 mg PO BID PRN PRN Reason: Vertigo Stop: 02/25/21 21:24 Melatonin (Melatonin 3 Mg Tab) 9 mg PO HS [facility] Stop: 02/25/21 20:59 Last Admin: 01/27/21 20:19 Dose: 9 mg Documented by: Metoprolol Tartrate (Metoprolol Tartrate 50 Mg Tab) 50 mg PO BIDM [facility] Stop: 02/26/21 07:59 Last Admin: 01/28/21 08:25 Dose: 50 mg Documented by: Miconazole Nitrate (Miconazole Nitrate Powder 43 Gm) 1 appln EXT PRN PRN PRN Reason: Affected Skin Folds Stop: 02/27/21 04:02 Last Admin: 01/28/21 06:24 Dose: 1 appln Documented by: Miscellaneous (Carbohydrates For Hypoglycemia ) 15 - 30 gm PO UD PRN PRN Reason: Hypoglycemia Protocol Stop: 02/25/21 19:40 Montelukast Sodium (Montelukast Sodium 10 Mg Tablet) 10 mg PO HS [facility] Stop: 02/25/21 20:59 Last Admin: 01/27/21 20:19 Dose: 10 mg Documented by: Multivitamins/Minerals (Calcium 600mg + Vit D 400 Iu Tab) 1 tab PO QDL [facility] Stop: 02/26/21 11:29 Last Admin: 01/28/21 11:25 Dose: 1 tab Documented by: Multivitamins/Minerals (Cerovite Adv Formula Tab) 1 tab PO HS [facility] Stop: 02/25/21 20:59 Last Admin: 01/27/21 20:19 Dose: 1 tab Documented by: Ondansetron HCl (Ondansetron Inj 2 Mg/Ml 2 Ml Vial) 4 mg IV Q6H PRN PRN Reason: Nausea Stop: 02/25/21 18:30 Oxybutynin Chloride (Oxybutynin Chloride Xl 5 Mg Tabcr) 10 mg PO DAILY [facility] Stop: 02/26/21 08:59 Last Admin: 01/28/21 08:25 Dose: 10 mg Documented by: Pantoprazole Sodium (Pantoprazole 40 Mg Tab) 40 mg PO QAM [facility] Stop: 02/26/21 08:59 Last Admin: 01/28/21 08:25 Dose: 40 mg Documented by: Polyethylene Glycol (Polyethylene (Miralax) 17 Gm Pack) 17 gm PO DAILY PRN PRN Reason: Constipation Stop: 02/25/21 18:30 Prednisone (Prednisone 50 Mg Tab) 50 mg PO DAILY [facility] Stop: 01/31/21 09:01 Last Admin: 01/28/21 08:29 Dose: 50 mg Documented by: Tramadol HCl (Tramadol Hcl 50 Mg Tablet) 50 mg PO BID [facility] Stop: 02/25/21 21:59 Last Admin: 01/28/21 08:42 Dose: 50 mg Documented by: Vitamin B Complex (Vitamin B Complex Tab) 1 tab PO QDL [facility] Stop: 02/26/21 11:29 Last Admin: 01/28/21 11:25 Dose: 1 tab Documented by: (1) Pneumonia Laterality: right Lung location: unspecified part of lung Pneumonia type: due to unspecified organism Qualified Code(s): J18.9 - Pneumonia, unspecified organism
[2021-01-28] MEDS: MELATONIN 3 MG TAB PO SCH (21:07)
[2021-01-28] MEDS: ATORVASTATIN 40 MG TAB PO SCH (21:08)
[2021-01-28] MEDS: CEROVITE ADV FORMULA TAB PO SCH (21:09)
[2021-01-28] MEDS: ENOXAPARIN INJ 40 MG/0.4 ML SYR SQ SCH (21:09)
[2021-01-28] MEDS: MONTELUKAST SODIUM 10 MG TABLET PO SCH (21:09)
[2021-01-28] MEDS: cefTRIAXone SODIUM 2,000 MG in DEXTROSE 5% 50 ML IV SCH (21:56)
[2021-01-29] MEDS: ALBUT/IPRATROP 3MG/0.5MG NEB 3 ML VIAL NEB SCH ×6 (03:48→22:59)
[2021-01-29] MEDS: DOXYCYCLINE HYCLATE 100 MG in DEXTROSE 5% 100 ML IV SCH ×2 (07:26→19:18)
[2021-01-29] MEDS: METOPROLOL TARTRATE 50 MG TAB PO SCH ×2 (09:58→16:55)
[2021-01-29] MEDS: guaiFENesin 600 MG TABCR PO SCH ×2 (09:59→21:30)
[2021-01-29] MEDS: GABAPENTIN 300 MG CAP PO SCH ×2 (09:59→21:30)
[2021-01-29] MEDS: ASPIRIN 81 MG ECTAB PO SCH ×2 (10:00→21:31)
[2021-01-29] MEDS: FUROSEMIDE 20 MG TAB PO SCH (10:00)
[2021-01-29] MEDS: busPIRone 5 MG TAB PO SCH ×2 (10:00→21:30)
[2021-01-29] MEDS: amLODIPine BESYLATE 5 MG TAB PO SCH (10:01)
[2021-01-29] MEDS: OXYBUTYNIN CHLORIDE XL 5 MG TABCR PO SCH (10:06)
[2021-01-29] MEDS: ISOSORBIDE MONO EXTENDED REL 60 MG TABCR PO SCH (10:06)
[2021-01-29] MEDS: PANTOprazole 40 MG TAB PO SCH (10:06)
[2021-01-29] MEDS: LOSARTAN POTASSIUM 50 MG TAB PO SCH (10:07)
[2021-01-29] MEDS: FLUTICASONE/VILANTEROL 100/25MCG 14 PUFFS/INHALER INH SCH (10:07)
[2021-01-29] MEDS: predniSONE 50 MG TAB PO SCH (10:13)
[2021-01-29] MEDS: INSULIN ASPART 100 UNITS/ML 3 ML PEN SC SCH ×4 (10:16→21:32)
[2021-01-29] MEDS: traMADol HCL 50 MG TABLET PO SCH ×2 (10:22→21:29)
[2021-01-29] MEDS: DOCUSATE SODIUM 100 MG CAP PO SCH ×2 (11:14→21:36)
[2021-01-29] MEDS: DULoxetine HCL 60 MG CAP PO SCH (11:15)
[2021-01-29] MEDS: CALCIUM 600MG + VIT D 400 IU TAB PO SCH (11:51)
[2021-01-29] MEDS: CETIRIZINE HCL 10 MG TABLET PO SCH (11:52)
[2021-01-29] MEDS: VITAMIN B COMPLEX TAB PO SCH (11:53)
[2021-01-29] MEDS ORDERED: INSULIN ASPART PER UNIT 5 UNITS in SYRINGE 0 ML SC STA (19:03)
[2021-01-29] MEDS ORDERED: INSULIN ASPART 100 UNITS/ML 3 ML PEN SC STA (19:05)
[2021-01-29] MEDS: MONTELUKAST SODIUM 10 MG TABLET PO SCH (21:29)
[2021-01-29] MEDS: ENOXAPARIN INJ 40 MG/0.4 ML SYR SQ SCH (21:30)
[2021-01-29] MEDS: CEFDINIR 300 MG CAP PO SCH (21:30)
[2021-01-29] MEDS: DOXYCYCLINE HYCLATE 100 MG CAP PO SCH (21:30)
[2021-01-29] MEDS: ATORVASTATIN 40 MG TAB PO SCH (21:31)
[2021-01-29] MEDS: MELATONIN 3 MG TAB PO SCH (21:35)
[2021-01-29] MEDS: CEROVITE ADV FORMULA TAB PO SCH (21:36)
--- NOTE | 2021-01-29 23:04 | Hospitalist Progress Note ---
Date of Service January 29, 2021 Assessment & Plan (1) Hypoxemia: (2) Pneumonia: (3) Acute exacerbation of chronic obstructive pulmonary disease: Plan: Pt is a 85 y/o F with hx of Asthma/COPD, DMII, HLD, Nocturnal hypoxia, HTN, OJEDA cirrhosis, CAD, Urinary incontinence, Anxiety, Lumbar DDD, Osteoporosis was sent by her PCP for pneumonia on CXR. -per pt she has chronic cough but it has gotten worse recently. She is also having increased SOB with headache for 1 week. Denied any N/V, diarrhea or CP. Per pt she is not on oxygen at home. Hypoxia with new CXR finding: -Bacterial pneumonia with Asthma/COPD exacerbation -started the pt on doxy and ceftriaxone -due to wheezing started prednisone, duoneb q4hrs -Sputum Cx ordered- not collected -CT chest to better visualize the lungs IMPRESSION: 1. Compared to the previous examination, there has been complete resolution of previously identified left upper lobe consolidation. 2. There is no acute chest disease on these noncontrast images. 3. Chronic bronchiectasis and mucous plugging is again seen with improvement from the previous examination as described. 4. Extensive coronary artery calcification and atherosclerotic calcification of the aortic arch and origin of great vessels is again seen. 5. Additional nonacute findings are delineated above. -will transition the pt to room air as pt tolerates (4) Chronic anemia: Plan: - hgb is at her baseline (5) Diabetic peripheral neuropathy: Plan: -c/w gabapentin (6) Type 2 diabetes mellitus: Plan: -will hold metformin and start the pt on ISS - pt hyperglycemic (2/2/ steroid use) - glycemic pharmacy consulted (7) Chronic low back pain: Plan: -c/w tramadol (8) Dyslipidemia: Plan: -on statin Plan: Diet:diabetic diet DVT PPx:Lovenox Code Status:DNR/DNI Emergency Contact: (daughter-Ashley) Admission and Anticipated Discharge Date Admission Date: January 26, 2021 Subjective Patient seen in follow-up of hypoxemic respiratory failure, pneumonia, was sent by PCP due to pneumonia found on chest x-ray Currently still using supplemental oxygen Reports she is feeling little better Denies any chest pain, fever chills, abdominal pain, nausea vomiting She appears overall comfortable, still has cough (pt says she has chronic cough, no sputum production) Review of Systems Review of Systems: All systems reviewed & are unremarkable except as noted in Subjective Physical Exam Physical Exam: General: WD/WN eld erly F in NAD on s uppl. O2 via NC H EENT: Normocephali c and atraumatic, Normal Conjunctiva , EOMI, PERRL, Scl era is non-icteric Lungs: slightly d ecreased BS b/l wi th upper lobes , n o wheezing, rhonch i, crackles Heart: Normal S1, S2, no murmur Abdominal: + bowel sounds, ND , Soft, NT Psych: AAOx3, normal affe ct Results & Data Results & Data ([facility]) Vital Signs (Past 12 Hours) Vital Signs Temp Pulse Pulse Resp BP Pulse Ox 01/29/21 23:00 78 18 97 01/29/21 19:59 36.8 C 75 18 184/73 H 95 01/29/21 18:01 76 16 94 01/29/21 16:33 37.0 C 77 20 119/69 95 01/29/21 14:53 72 18 95 01/29/21 14:25 68 Medications Administered Current Inpatient Medications Acetaminophen (Acetaminophen 325 Mg Tab) 650 mg PO Q4H PRN PRN Reason: Pain or Fever Stop: 02/25/21 18:30 Albuterol (Albut/Ipratrop 3mg/0.5mg Neb 3 Ml Vial) 3 ml NEB Q4R [facility] Stop: 02/25/21 18:59 Last Admin: 01/29/21 22:59 Dose: 3 ml Documented by: Amlodipine Besylate (Amlodipine Besylate 5 Mg Tab) 10 mg PO QAM [facility] Stop: 02/26/21 08:59 Last Admin: 01/29/21 10:01 Dose: 10 mg Documented by: Aspirin (Aspirin 81 Mg Ectab) 81 mg PO BID [facility] Stop: 02/25/21 20:59 Last Admin: 01/29/21 21:31 Dose: 81 mg Documented by: Atorvastatin Calcium (Atorvastatin 40 Mg Tab) 40 mg PO HS [facility] Stop: 02/25/21 20:59 Last Admin: 01/29/21 21:31 Dose: 40 mg Documented by: Buspirone HCl (Buspirone 5 Mg Tab) 5 mg PO BID [facility] Stop: 02/25/21 20:59 Last Admin: 01/29/21 21:30 Dose: 5 mg Documented by: Cefdinir (Cefdinir 300 Mg Cap) 300 mg PO BID [facility] Stop: 02/05/21 20:59 Last Admin: 01/29/21 21:30 Dose: 300 mg Documented by: Cetirizine HCl (Cetirizine Hcl 10 Mg Tablet) 10 mg PO QDL [facility] Stop: 02/26/21 11:29 Last Admin: 01/29/21 11:52 Dose: 10 mg Documented by: Dextrose (Dextrose 50% 50 Ml Syringe) 25 - 50 ml IV UD PRN; Protocol PRN Reason: Hypoglycemia Protocol Stop: 02/25/21 19:40 Docusate Sodium (Docusate Sodium 100 Mg Cap) 100 mg PO BID [facility] Stop: 02/25/21 20:59 Last Admin: 01/29/21 21:36 Dose: 100 mg Documented by: Doxycycline Hyclate (Doxycycline Hyclate 100 Mg Cap) 100 mg PO BID [facility] Stop: 02/05/21 20:59 Last Admin: 01/29/21 21:30 Dose: 100 mg Documented by: Duloxetine HCl (Duloxetine Hcl 60 Mg Cap) 60 mg PO QAM [facility] Stop: 02/26/21 08:59 Last Admin: 01/29/21 11:15 Dose: 60 mg Documented by: Enoxaparin Sodium (Enoxaparin Inj 40 Mg/0.4 Ml Syr) 40 mg SQ Q24H [facility] Stop: 02/25/21 18:30 Last Admin: 01/29/21 21:30 Dose: 40 mg Documented by: Fluticasone/Vilanterol (Fluticasone/Vilanterol 100/25mcg 14 Puffs/Inhaler) 1 puffs INH DAILY [facility] Stop: 02/26/21 08:59 Last Admin: 01/29/21 10:07 Dose: 1 puffs Documented by: Furosemide (Furosemide 20 Mg Tab) 20 mg PO QAM [facility] Stop: 02/26/21 08:59 Last Admin: 01/29/21 10:00 Dose: 20 mg Documented by: Gabapentin (Gabapentin 300 Mg Cap) 300 mg PO BID [facility] Stop: 02/25/21 21:59 Last Admin: 01/29/21 21:30 Dose: 300 mg Documented by: Glucagon (Glucagon For Inj 1 Mg Vial) 1 mg SQ UD PRN; Protocol PRN Reason: Hypoglycemia Protocol Stop: 02/25/21 19:40 Glucose (Glucose 10 Tabs/Tube) 4 - 8 tabs PO UD PRN; Protocol PRN Reason: Hypoglycemia Protocol Stop: 02/25/21 19:40 Glucose (Glucose 40% Gel 15 Gm Tube) 15 - 30 gm PO UD PRN; Protocol PRN Reason: Hypoglycemia Protocol Stop: 02/25/21 19:40 Guaifenesin (Guaifenesin 600 Mg Tabcr) 600 mg PO Q12 [facility] Stop: 02/26/21 20:59 Last Admin: 01/29/21 21:30 Dose: 600 mg Documented by: Ceftriaxone Sodium 2,000 mg/ (Dextrose) 70 mls @ 100 mls/hr IV Q24H [facility]; Protocol Last Infusion: 01/28/21 23:39 Dose: Infused Documented by: Doxycycline Hyclate 100 mg/ (Dextrose) 110 mls @ 50 mls/hr IV Q12H [facility] Stop: 02/02/21 18:30 Last Infusion: 01/29/21 21:28 Dose: Infused Documented by: Insulin Aspart (Insulin Aspart 100 Units/Ml 3 Ml Pen) 0 units SC ACHS [facility] Stop: 02/25/21 20:59 Last Admin: 01/29/21 21:32 Dose: 2 units Documented by: Isosorbide Mononitrate (Isosorbide [place] Extended Rel 60 Mg Tabcr) 60 mg PO QAM [facility] Stop: 02/26/21 08:59 Last Admin: 01/29/21 10:06 Dose: 60 mg Documented by: Losartan Potassium (Losartan Potassium 50 Mg Tab) 50 mg PO QAM [facility] Stop: 02/26/21 08:59 Last Admin: 01/29/21 10:07 Dose: 50 mg Documented by: Meclizine HCl (Meclizine Hcl 25 Mg Tab) 25 mg PO BID PRN PRN Reason: Vertigo Stop: 02/25/21 21:24 Melatonin (Melatonin 3 Mg Tab) 9 mg PO HS [facility] Stop: 02/25/21 20:59 Last Admin: 01/29/21 21:35 Dose: 9 mg Documented by: Metoprolol Tartrate (Metoprolol Tartrate 50 Mg Tab) 50 mg PO BIDM [facility] Stop: 02/26/21 07:59 Last Admin: 01/29/21 16:55 Dose: 50 mg Documented by: Miconazole Nitrate (Miconazole Nitrate Powder 43 Gm) 1 appln EXT PRN PRN PRN Reason: Affected Skin Folds Stop: 02/27/21 04:02 Last Admin: 01/28/21 19:46 Dose: 1 appln Documented by: Miscellaneous (Carbohydrates For Hypoglycemia ) 15 - 30 gm PO UD PRN PRN Reason: Hypoglycemia Protocol Stop: 02/25/21 19:40 Montelukast Sodium (Montelukast Sodium 10 Mg Tablet) 10 mg PO HS [facility] Stop: 02/25/21 20:59 Last Admin: 01/29/21 21:29 Dose: 10 mg Documented by: Multivitamins/Minerals (Calcium 600mg + Vit D 400 Iu Tab) 1 tab PO QDL [facility] Stop: 02/26/21 11:29 Last Admin: 01/29/21 11:51 Dose: 1 tab Documented by: Multivitamins/Minerals (Cerovite Adv Formula Tab) 1 tab PO HS [facility] Stop: 02/25/21 20:59 Last Admin: 01/29/21 21:36 Dose: 1 tab Documented by: Ondansetron HCl (Ondansetron Inj 2 Mg/Ml 2 Ml Vial) 4 mg IV Q6H PRN PRN Reason: Nausea Stop: 02/25/21 18:30 Oxybutynin Chloride (Oxybutynin Chloride Xl 5 Mg Tabcr) 10 mg PO DAILY [facility] Stop: 02/26/21 08:59 Last Admin: 01/29/21 10:06 Dose: 10 mg Documented by: Pantoprazole Sodium (Pantoprazole 40 Mg Tab) 40 mg PO QAM [facility] Stop: 02/26/21 08:59 Last Admin: 01/29/21 10:06 Dose: 40 mg Documented by: Polyethylene Glycol (Polyethylene (Miralax) 17 Gm Pack) 17 gm PO DAILY PRN PRN Reason: Constipation Stop: 02/25/21 18:30 Prednisone (Prednisone 50 Mg Tab) 50 mg PO DAILY [facility] Stop: 01/31/21 09:01 Last Admin: 01/29/21 10:13 Dose: 50 mg Documented by: Tramadol HCl (Tramadol Hcl 50 Mg Tablet) 50 mg PO BID [facility] Stop: 02/25/21 21:59 Last Admin: 01/29/21 21:29 Dose: 50 mg Documented by: Vitamin B Complex (Vitamin B Complex Tab) 1 tab PO QDL [facility] Stop: 02/26/21 11:29 Last Admin: 01/29/21 11:53 Dose: 1 tab Documented by: (1) Pneumonia Laterality: right Lung location: unspecified part of lung Pneumonia type: due to unspecified organism Qualified Code(s): J18.9 - Pneumonia, unspecified organism
[2021-01-29] MEDS ORDERED: PHARMACY GLYCEMIC MGMT CONSULT PRN (23:06)
[2021-01-29] MEDS: ACETYLCYSTEINE 20% INHAL SOLN 4ML ***DISPENSED BY RESP. INH SCH (23:47)
[2021-01-30] MEDS: ALBUT/IPRATROP 3MG/0.5MG NEB 3 ML VIAL NEB SCH ×6 (02:14→22:06)
[2021-01-30 06:55] LABS: Hematocrit (blood only) 35.1 % (37-47); Hemoglobin 10.6 g/dL (12.0-16.0); Mean Corpuscular Hgb Conc 30.2 g/dL (32-36); Mean Corpuscular Volume 89.5 fL (80-100); Mean Platelet Volume 10.4 fL (7.4-10.4); Platelet Count 177 K/uL (130-400); RDW Coefficient of Variation 15.7 % (11.5-14.5); RDW Standard Deviation 50.4 fL (36.4-46.3); Red Blood Count 3.92 M/uL (4.2-5.4)
[2021-01-30 07:31] LABS: Calcium 8.9 mg/dl (8.5-10.1); Creatinine Clr Calc Pharmacy 46.9 ml/min; Est GFR (African American) 65.9 ml/min; Est GFR (Non-African American) 56.8 ml/min; Potassium 4.4 mmol/L (3.5-5.1)
[2021-01-30 07:32] LABS: Phosphorus 3.4 mg/dl (2.5-4.9)
[2021-01-30 07:38] LABS: Estimated Average Glucose 160 mg/dl; Hemoglobin A1C 7.2 % (4.5-5.6)
[2021-01-30] MEDS: ACETYLCYSTEINE 20% INHAL SOLN 4ML ***DISPENSED BY RESP. INH SCH (07:40)
[2021-01-30] MEDS: INSULIN ASPART 100 UNITS/ML 3 ML PEN SC SCH ×4 (08:15→21:19)
[2021-01-30] MEDS: INSULIN HUMAN NPH SC SCH (08:23)
[2021-01-30] MEDS: DULoxetine HCL 60 MG CAP PO SCH (08:29)
[2021-01-30] MEDS: FLUTICASONE/VILANTEROL 100/25MCG 14 PUFFS/INHALER INH SCH (08:29)
[2021-01-30] MEDS: amLODIPine BESYLATE 5 MG TAB PO SCH (08:29)
[2021-01-30] MEDS: guaiFENesin 600 MG TABCR PO SCH ×2 (08:30→20:06)
[2021-01-30] MEDS: ISOSORBIDE MONO EXTENDED REL 60 MG TABCR PO SCH (08:30)
[2021-01-30] MEDS: CEFDINIR 300 MG CAP PO SCH ×2 (08:30→20:08)
[2021-01-30] MEDS: busPIRone 5 MG TAB PO SCH ×2 (08:31→20:07)
[2021-01-30] MEDS: OXYBUTYNIN CHLORIDE XL 5 MG TABCR PO SCH (08:31)
[2021-01-30] MEDS: DOXYCYCLINE HYCLATE 100 MG CAP PO SCH ×2 (08:31→20:09)
[2021-01-30] MEDS: PANTOprazole 40 MG TAB PO SCH (08:32)
[2021-01-30] MEDS: predniSONE 50 MG TAB PO SCH (08:32)
[2021-01-30] MEDS: ASPIRIN 81 MG ECTAB PO SCH ×2 (08:33→20:08)
[2021-01-30] MEDS: FUROSEMIDE 20 MG TAB PO SCH (08:33)
[2021-01-30] MEDS: LOSARTAN POTASSIUM 50 MG TAB PO SCH (08:34)
[2021-01-30] MEDS: METOPROLOL TARTRATE 50 MG TAB PO SCH ×2 (08:34→17:20)
[2021-01-30] MEDS: traMADol HCL 50 MG TABLET PO SCH ×2 (08:42→20:11)
[2021-01-30] MEDS: DOCUSATE SODIUM 100 MG CAP PO SCH ×2 (08:42→20:12)
[2021-01-30] MEDS: GABAPENTIN 300 MG CAP PO SCH ×2 (08:42→20:07)
--- NOTE | 2021-01-30 09:09 | Pharmacy Report ---
Pharmacy Glycemic Short Note 2 - Date of Service January 30, 2021 - Glycemic Short BSG Results (Last 24 hours): 01/29/21 01/29/21 01/29/21 11:47 17:07 17:56 Glucose POC Glucose 184 H 312 H* 331 H* 01/29/21 01/29/21 01/30/21 18:26 21:26 06:21 Glucose 118 H POC Glucose 335 H* 222 H 01/30/21 07:48 Glucose POC Glucose 111 H OUTPATIENT ANTIDIABETIC REGIMEN: * metformin 1 gm PO daily ASSESSMENT: * Ms Hernandez is an 85 y/o F with a PMH of T2DM on one oral medication who presents with pneumonia. * Pharmacy consulted yesterday evening for hyperglycemia in setting of predniso ne 50 mg daily x 5 days. * BSG 111 mg/dL this morning. * NPH 25 units SQ daily with prednisone (0.3 units/kg) * Novolog tightened to weight-based stress of 3 for carbohydrate ratio. Patient does correct with current CF so will leave that. PLAN FOR INPATIENT GLYCEMIC CONTROL: * Hold outpatient oral diabetes medications * Basal insulin * NPH 25 units SQ daily with prednisone 50 mg daily * Bolus insulin * NovoLog per scale ACHS or Q6hrs while NPO * Goal Range: Low 110 mg/dL - High 140 mg/dL * Correction Factor: 30 mg/dL/unit * Nutritional / Prandial insulin per carb ratio of 1 unit per 6 grams CHO consumed PLAN FOR DISCHARGE: * Patient's HbA1C is at goal so continue metformin.
[2021-01-30] MEDS: VITAMIN B COMPLEX TAB PO SCH (12:13)
[2021-01-30] MEDS: CALCIUM 600MG + VIT D 400 IU TAB PO SCH (12:13)
[2021-01-30] MEDS: CETIRIZINE HCL 10 MG TABLET PO SCH (12:13)
[2021-01-30] MEDS: ENOXAPARIN INJ 40 MG/0.4 ML SYR SQ SCH (20:06)
[2021-01-30] MEDS: ATORVASTATIN 40 MG TAB PO SCH (20:08)
[2021-01-30] MEDS: MONTELUKAST SODIUM 10 MG TABLET PO SCH (20:08)
[2021-01-30] MEDS: CEROVITE ADV FORMULA TAB PO SCH (20:10)
[2021-01-30] MEDS: MELATONIN 3 MG TAB PO SCH (20:11)
[2021-01-31] MEDS: ALBUT/IPRATROP 3MG/0.5MG NEB 3 ML VIAL NEB SCH ×5 (02:51→20:20)
--- NOTE | 2021-01-31 05:43 | Hospitalist Progress Note ---
Date of Service January 30, 2021 Assessment & Plan (1) Hypoxemia: (2) Pneumonia: (3) Acute exacerbation of chronic obstructive pulmonary disease: Plan: Pt is a 85 y/o F with hx of Asthma/COPD, DMII, HLD, Nocturnal hypoxia, HTN, OJEDA cirrhosis, CAD, Urinary incontinence, Anxiety, Lumbar DDD, Osteoporosis. Was sent by her PCP for pneumonia on CXR. Pt has chronic cough but it has gotten worse recently. She is also having increased SOB with headache for 1 week. She is not on oxygen at home. Hypoxia with new CXR finding: -Bacterial pneumonia with Asthma/COPD exacerbation -started the pt on doxy and ceftriaxone -due to wheezing started prednisone, duoneb q4hrs -Sputum Cx ordered- not collected (no sputum production) -CT chest to better visualize the lungs IMPRESSION: 1. Compared to the previous examination, there has been complete resolution of previously identified left upper lobe consolidation. 2. There is no acute chest disease on these noncontrast images. 3. Chronic bronchiectasis and mucous plugging is again seen with improvement from the previous examination as described. 4. Extensive coronary artery calcification and atherosclerotic calcification of the aortic arch and origin of great vessels is again seen. 5. Additional nonacute findings are delineated above. -Unable to wean off of oxygen, still using about 2L (4) Chronic anemia: Plan: - Hgb is at her baseline - stable during this admission ~11 (5) Diabetic peripheral neuropathy: Plan: -c/w gabapentin (6) Type 2 diabetes mellitus: Plan: - will hold metformin and start the pt on ISS - pt hyperglycemic (2/2/ steroid use) - glycemic pharmacy consulted (7) Chronic low back pain: Plan: -c/w tramadol (8) Dyslipidemia: Plan: -on statin Plan: Diet:diabetic diet DVT PPx:Lovenox Code Status:DNR/DNI Emergency Contact: (daughter-Ashley) Admission and Anticipated Discharge Date Admission Date: January 26, 2021 Subjective Patient seen in follow-up of hypoxemic respiratory failure, pneumonia, was sent by PCP due to pneumonia found on chest x-ray Currently still using supplemental oxygen Reports she is feeling little better Denies any chest pain, fever chills, abdominal pain, nausea vomiting She appears overall comfortable, still has cough (pt says she has chronic cough, no sputum production) Review of Systems Review of Systems: All systems reviewed & are unremarkable except as noted in Subjective Physical Exam Physical Exam: General: WD/WN eld erly F in NAD on s uppl. O2 via NC H EENT: Normocephali c and atraumatic, Normal Conjunctiva , EOMI, PERRL, Scl era is non-icteric Lungs: slightly d ecreased BS b/l wi th upper lobes , n o wheezing, rhonch i, crackles Heart: Normal S1, S2, no murmur Abdominal: + bowel sounds, ND , Soft, NT Psych: AAOx3, normal affe ct Results & Data Results & Data ([facility]) Vital Signs (Past 12 Hours) Vital Signs Temp Pulse Pulse Resp BP Pulse Ox 01/30/21 23:31 36.8 C 88 18 143/70 H 99 01/30/21 19:56 36.7 C 77 18 150/63 H 98 01/30/21 19:24 17 91 Laboratory Results 01/30/21 01/30/21 01/30/21 Range/Units 20:47 16:39 11:17 WBC (4.8-10.8) K/uL RBC (4.2-5.4) M/uL Hgb (12.0-16.0) g/dL Hct (37-47) % MCV (80-100) fL MCH (25-34) pg MCHC (32-36) g/dL RDW Std Deviation (36.4-46.3) fL RDW Coeff of Rakesh (11.5-14.5) % Plt Count (130-400) K/uL MPV (7.4-10.4) fL Sodium (136-145) mmol/L Potassium (3.5-5.1) mmol/L Chloride (98-107) mmol/L Carbon Dioxide (21-32) mmol/L Anion Gap (3-11) BUN (7-18) mg/dl Creatinine (0.6-1.2) mg/dl Est Cr Clr Drug Dosing ml/min Est GFR ( Amer) ml/min Est GFR (Non-Af Amer) ml/min BUN/Creatinine Ratio (10-20) Glucose (70-99) mg/dl POC Glucose 219 H 236 H 178 H (70-99) mg/dl Estimat Average Glucose mg/dl Hemoglobin A1c (4.5-5.6) % Calcium (8.5-10.1) mg/dl Phosphorus (2.5-4.9) mg/dl Magnesium (1.8-2.4) mg/dl 01/30/21 01/30/21 01/30/21 Range/Units 07:48 06:21 06:21 WBC (4.8-10.8) K/uL RBC (4.2-5.4) M/uL Hgb (12.0-16.0) g/dL Hct (37-47) % MCV (80-100) fL MCH (25-34) pg MCHC (32-36) g/dL RDW Std Deviation (36.4-46.3) fL RDW Coeff of Rakesh (11.5-14.5) % Plt Count (130-400) K/uL MPV (7.4-10.4) fL Sodium 140 (136-145) mmol/L Potassium 4.4 (3.5-5.1) mmol/L Chloride 103 (98-107) mmol/L Carbon Dioxide 31 (21-32) mmol/L Anion Gap 6.0 (3-11) BUN 31 H (7-18) mg/dl Creatinine 0.93 (0.6-1.2) mg/dl Est Cr Clr Drug Dosing 46.9 ml/min Est GFR ( Amer) 65.9 ml/min Est GFR (Non-Af Amer) 56.8 ml/min BUN/Creatinine Ratio 33.0 H (10-20) Glucose 118 H (70-99) mg/dl POC Glucose 111 H (70-99) mg/dl Estimat Average Glucose 160 mg/dl Hemoglobin A1c 7.2 H (4.5-5.6) % Calcium 8.9 (8.5-10.1) mg/dl Phosphorus 3.4 (2.5-4.9) mg/dl Magnesium 2.0 (1.8-2.4) mg/dl 01/30/21 Range/Units 06:21 WBC 8.50 (4.8-10.8) K/uL RBC 3.92 L (4.2-5.4) M/uL Hgb 10.6 L (12.0-16.0) g/dL Hct 35.1 L (37-47) % MCV 89.5 (80-100) fL MCH 27.0 (25-34) pg MCHC 30.2 L (32-36) g/dL RDW Std Deviation 50.4 H (36.4-46.3) fL RDW Coeff of Rakesh 15.7 H (11.5-14.5) % Plt Count 177 (130-400) K/uL MPV 10.4 (7.4-10.4) fL Sodium (136-145) mmol/L Potassium (3.5-5.1) mmol/L Chloride (98-107) mmol/L Carbon Dioxide (21-32) mmol/L Anion Gap (3-11) BUN (7-18) mg/dl Creatinine (0.6-1.2) mg/dl Est Cr Clr Drug Dosing ml/min Est GFR ( Amer) ml/min Est GFR (Non-Af Amer) ml/min BUN/Creatinine Ratio (10-20) Glucose (70-99) mg/dl POC Glucose (70-99) mg/dl Estimat Average Glucose mg/dl Hemoglobin A1c (4.5-5.6) % Calcium (8.5-10.1) mg/dl Phosphorus (2.5-4.9) mg/dl Magnesium (1.8-2.4) mg/dl Medications Administered Current Inpatient Medications Acetaminophen (Acetaminophen 325 Mg Tab) 650 mg PO Q4H PRN PRN Reason: Pain or Fever Stop: 02/25/21 18:30 Albuterol (Albut/Ipratrop 3mg/0.5mg Neb 3 Ml Vial) 3 ml NEB Q4R [facility] Stop: 02/25/21 18:59 Last Admin: 01/31/21 02:51 Dose: 3 ml Documented by: Amlodipine Besylate (Amlodipine Besylate 5 Mg Tab) 10 mg PO QAM [facility] Stop: 02/26/21 08:59 Last Admin: 01/30/21 08:29 Dose: 10 mg Documented by: Aspirin (Aspirin 81 Mg Ectab) 81 mg PO BID [facility] Stop: 02/25/21 20:59 Last Admin: 01/30/21 20:08 Dose: 81 mg Documented by: Atorvastatin Calcium (Atorvastatin 40 Mg Tab) 40 mg PO HS [facility] Stop: 02/25/21 20:59 Last Admin: 01/30/21 20:08 Dose: 40 mg Documented by: Buspirone HCl (Buspirone 5 Mg Tab) 5 mg PO BID [facility] Stop: 02/25/21 20:59 Last Admin: 01/30/21 20:07 Dose: 5 mg Documented by: Cefdinir (Cefdinir 300 Mg Cap) 300 mg PO BID [facility] Stop: 02/05/21 20:59 Last Admin: 01/30/21 20:08 Dose: 300 mg Documented by: Cetirizine HCl (Cetirizine Hcl 10 Mg Tablet) 10 mg PO QDL [facility] Stop: 02/26/21 11:29 Last Admin: 01/30/21 12:13 Dose: 10 mg Documented by: Dextrose (Dextrose 50% 50 Ml Syringe) 25 - 50 ml IV UD PRN; Protocol PRN Reason: Hypoglycemia Protocol Stop: 02/25/21 19:40 Docusate Sodium (Docusate Sodium 100 Mg Cap) 100 mg PO BID [facility] Stop: 02/25/21 20:59 Last Admin: 01/30/21 20:12 Dose: 100 mg Documented by: Doxycycline Hyclate (Doxycycline Hyclate 100 Mg Cap) 100 mg PO BID [facility] Stop: 02/05/21 20:59 Last Admin: 01/30/21 20:09 Dose: 100 mg Documented by: Duloxetine HCl (Duloxetine Hcl 60 Mg Cap) 60 mg PO QAM [facility] Stop: 02/26/21 08:59 Last Admin: 01/30/21 08:29 Dose: 60 mg Documented by: Enoxaparin Sodium (Enoxaparin Inj 40 Mg/0.4 Ml Syr) 40 mg SQ Q24H [facility] Stop: 02/25/21 18:30 Last Admin: 01/30/21 20:06 Dose: 40 mg Documented by: Fluticasone/Vilanterol (Fluticasone/Vilanterol 100/25mcg 14 Puffs/Inhaler) 1 puffs INH DAILY [facility] Stop: 02/26/21 08:59 Last Admin: 01/30/21 08:29 Dose: 1 puffs Documented by: Furosemide (Furosemide 20 Mg Tab) 20 mg PO QAM [facility] Stop: 02/26/21 08:59 Last Admin: 01/30/21 08:33 Dose: 20 mg Documented by: Gabapentin (Gabapentin 300 Mg Cap) 300 mg PO BID [facility] Stop: 02/25/21 21:59 Last Admin: 01/30/21 20:07 Dose: 300 mg Documented by: Glucagon (Glucagon For Inj 1 Mg Vial) 1 mg SQ UD PRN; Protocol PRN Reason: Hypoglycemia Protocol Stop: 02/25/21 19:40 Glucose (Glucose 10 Tabs/Tube) 4 - 8 tabs PO UD PRN; Protocol PRN Reason: Hypoglycemia Protocol Stop: 02/25/21 19:40 Glucose (Glucose 40% Gel 15 Gm Tube) 15 - 30 gm PO UD PRN; Protocol PRN Reason: Hypoglycemia Protocol Stop: 02/25/21 19:40 Guaifenesin (Guaifenesin 600 Mg Tabcr) 600 mg PO Q12 [facility] Stop: 02/26/21 20:59 Last Admin: 01/30/21 20:06 Dose: 600 mg Documented by: Ceftriaxone Sodium 2,000 mg/ (Dextrose) 70 mls @ 100 mls/hr IV Q24H [facility]; Protocol Last Infusion: 01/28/21 23:39 Dose: Infused Documented by: Insulin Aspart (Insulin Aspart 100 Units/Ml 3 Ml Pen) 0 units SC ACHS [facility]; Protocol Stop: 02/25/21 20:59 Last Admin: 01/30/21 21:19 Dose: 3 units Documented by: Insulin Human NPH (Insulin Human Nph) 0 units SC DAILY [facility]; Protocol Stop: 01/31/21 12:00 Last Admin: 01/30/21 08:23 Dose: 25 units Documented by: Isosorbide Mononitrate (Isosorbide [place] Extended Rel 60 Mg Tabcr) 60 mg PO QAM [facility] Stop: 02/26/21 08:59 Last Admin: 01/30/21 08:30 Dose: 60 mg Documented by: Losartan Potassium (Losartan Potassium 50 Mg Tab) 50 mg PO QAM [facility] Stop: 02/26/21 08:59 Last Admin: 01/30/21 08:34 Dose: 50 mg Documented by: Meclizine HCl (Meclizine Hcl 25 Mg Tab) 25 mg PO BID PRN PRN Reason: Vertigo Stop: 02/25/21 21:24 Melatonin (Melatonin 3 Mg Tab) 9 mg PO HS [facility] Stop: 02/25/21 20:59 Last Admin: 01/30/21 20:11 Dose: 9 mg Documented by: Metoprolol Tartrate (Metoprolol Tartrate 50 Mg Tab) 50 mg PO BIDM [facility] Stop: 02/26/21 07:59 Last Admin: 01/30/21 17:20 Dose: 50 mg Documented by: Miconazole Nitrate (Miconazole Nitrate Powder 43 Gm) 1 appln EXT PRN PRN PRN Reason: Affected Skin Folds Stop: 02/27/21 04:02 Last Admin: 01/28/21 19:46 Dose: 1 appln Documented by: Miscellaneous (Carbohydrates For Hypoglycemia ) 15 - 30 gm PO UD PRN PRN Reason: Hypoglycemia Protocol Stop: 02/25/21 19:40 Miscellaneous Information (Pharmacy Glycemic Mgmt Consult) 1 ea N/A UD PRN PRN Reason: Consult Stop: 02/28/21 23:05 Montelukast Sodium (Montelukast Sodium 10 Mg Tablet) 10 mg PO HS [facility] Stop: 02/25/21 20:59 Last Admin: 01/30/21 20:08 Dose: 10 mg Documented by: Multivitamins/Minerals (Calcium 600mg + Vit D 400 Iu Tab) 1 tab PO QDL [facility] Stop: 02/26/21 11:29 Last Admin: 01/30/21 12:13 Dose: 1 tab Documented by: Multivitamins/Minerals (Cerovite Adv Formula Tab) 1 tab PO HS [facility] Stop: 02/25/21 20:59 Last Admin: 01/30/21 20:10 Dose: 1 tab Documented by: Ondansetron HCl (Ondansetron Inj 2 Mg/Ml 2 Ml Vial) 4 mg IV Q6H PRN PRN Reason: Nausea Stop: 02/25/21 18:30 Oxybutynin Chloride (Oxybutynin Chloride Xl 5 Mg Tabcr) 10 mg PO DAILY [facility] Stop: 02/26/21 08:59 Last Admin: 01/30/21 08:31 Dose: 10 mg Documented by: Pantoprazole Sodium (Pantoprazole 40 Mg Tab) 40 mg PO QAM [facility] Stop: 02/26/21 08:59 Last Admin: 01/30/21 08:32 Dose: 40 mg Documented by: Polyethylene Glycol (Polyethylene (Miralax) 17 Gm Pack) 17 gm PO DAILY PRN PRN Reason: Constipation Stop: 02/25/21 18:30 Prednisone (Prednisone 50 Mg Tab) 50 mg PO DAILY [facility] Stop: 01/31/21 09:01 Last Admin: 01/30/21 08:32 Dose: 50 mg Documented by: Tramadol HCl (Tramadol Hcl 50 Mg Tablet) 50 mg PO BID [facility] Stop: 02/25/21 21:59 Last Admin: 01/30/21 20:11 Dose: 50 mg Documented by: Vitamin B Complex (Vitamin B Complex Tab) 1 tab PO QDL [facility] Stop: 02/26/21 11:29 Last Admin: 01/30/21 12:13 Dose: 1 tab Documented by: (1) Pneumonia Laterality: right Lung location: unspecified part of lung Pneumonia type: due to unspecified organism Qualified Code(s): J18.9 - Pneumonia, unspecified organism
[2021-01-31 06:43] LABS: Hematocrit (blood only) 33.5 % (37-47); Hemoglobin 10.2 g/dL (12.0-16.0); Mean Corpuscular Hemoglobin 27.3 pg (25-34); Mean Corpuscular Hgb Conc 30.4 g/dL (32-36); Mean Corpuscular Volume 89.6 fL (80-100); Mean Platelet Volume 10.7 fL (7.4-10.4); Platelet Count 166 K/uL (130-400); RDW Coefficient of Variation 15.7 % (11.5-14.5); RDW Standard Deviation 51.5 fL (36.4-46.3); Red Blood Count 3.74 M/uL (4.2-5.4); White Blood Count 9.07 K/uL (4.8-10.8)
[2021-01-31 07:12] LABS: BUN Creatinine Ratio 36.1 (10-20); Creatinine Clr Calc Pharmacy 34.3 ml/min; Est GFR (African American) 45.2 ml/min; Magnesium 1.9 mg/dl (1.8-2.4); Potassium 4.4 mmol/L (3.5-5.1)
[2021-01-31 07:13] LABS: Phosphorus 3.3 mg/dl (2.5-4.9)
[2021-01-31] MEDS: INSULIN ASPART 100 UNITS/ML 3 ML PEN SC SCH ×4 (09:45→21:11)
[2021-01-31] MEDS: INSULIN HUMAN NPH SC SCH (09:47)
[2021-01-31] MEDS: ISOSORBIDE MONO EXTENDED REL 60 MG TABCR PO SCH (09:56)
[2021-01-31] MEDS: FUROSEMIDE 20 MG TAB PO SCH (09:56)
[2021-01-31] MEDS: OXYBUTYNIN CHLORIDE XL 5 MG TABCR PO SCH (09:57)
[2021-01-31] MEDS: guaiFENesin 600 MG TABCR PO SCH ×2 (09:57→21:03)
[2021-01-31] MEDS: predniSONE 50 MG TAB PO SCH (09:58)
[2021-01-31] MEDS: DULoxetine HCL 60 MG CAP PO SCH (09:58)
[2021-01-31] MEDS: PANTOprazole 40 MG TAB PO SCH (09:58)
[2021-01-31] MEDS: amLODIPine BESYLATE 5 MG TAB PO SCH (09:58)
[2021-01-31] MEDS: ASPIRIN 81 MG ECTAB PO SCH ×2 (09:59→21:04)
[2021-01-31] MEDS: LOSARTAN POTASSIUM 50 MG TAB PO SCH (09:59)
[2021-01-31] MEDS: GABAPENTIN 300 MG CAP PO SCH ×2 (09:59→21:02)
[2021-01-31] MEDS: DOXYCYCLINE HYCLATE 100 MG CAP PO SCH ×2 (09:59→21:05)
[2021-01-31] MEDS: CEFDINIR 300 MG CAP PO SCH ×2 (10:00→21:03)
[2021-01-31] MEDS: busPIRone 5 MG TAB PO SCH ×2 (10:00→21:04)
[2021-01-31] MEDS: FLUTICASONE/VILANTEROL 100/25MCG 14 PUFFS/INHALER INH SCH (10:00)
[2021-01-31] MEDS: DOCUSATE SODIUM 100 MG CAP PO SCH ×2 (11:10→21:09)
[2021-01-31] MEDS: METOPROLOL TARTRATE 50 MG TAB PO SCH ×2 (11:11→18:11)
[2021-01-31] MEDS: traMADol HCL 50 MG TABLET PO SCH ×2 (11:13→21:09)
[2021-01-31] MEDS: VITAMIN B COMPLEX TAB PO SCH (11:47)
[2021-01-31] MEDS: CALCIUM 600MG + VIT D 400 IU TAB PO SCH (11:48)
[2021-01-31] MEDS: CETIRIZINE HCL 10 MG TABLET PO SCH (11:48)
--- NOTE | 2021-01-31 18:47 | Hospitalist Progress Note ---
Date of Service January 31, 2021 Assessment & Plan (1) Hypoxemia: (2) Pneumonia: (3) Acute exacerbation of chronic obstructive pulmonary disease: Plan: Pt is a 85 y/o F with hx of Asthma/COPD, DMII, HLD, Nocturnal hypoxia, HTN, OJEDA cirrhosis, CAD, Urinary incontinence, Anxiety, Lumbar DDD, Osteoporosis. Was sent by her PCP for pneumonia on CXR. Pt has chronic cough but it has gotten worse recently. She is also having increased SOB with headache for 1 week. She is not on oxygen at home. Hypoxia with new CXR finding: -Bacterial pneumonia with Asthma/COPD exacerbation -started the pt on doxy and ceftriaxone -due to wheezing started prednisone, duoneb q4hrs -Sputum Cx ordered- not collected (no sputum production) -CT chest to better visualize the lungs IMPRESSION: 1. Compared to the previous examination, there has been complete resolution of previously identified left upper lobe consolidation. 2. There is no acute chest disease on these noncontrast images. 3. Chronic bronchiectasis and mucous plugging is again seen with improvement from the previous examination as described. 4. Extensive coronary artery calcification and atherosclerotic calcification of the aortic arch and origin of great vessels is again seen. 5. Additional nonacute findings are delineated above. -Unable to wean off of oxygen, still using about 2L -Plan for step 2 study in the morning (4) Chronic anemia: Plan: - Hgb is at her baseline - stable during this admission ~11 Elevated Cr - mildly elev. Cr today at 1.2 - likely from poor oral intake - will give gentle fluids, encourage PO intake (5) Diabetic peripheral neuropathy: Plan: -c/w gabapentin (6) Type 2 diabetes mellitus: Plan: - will hold metformin and start the pt on ISS - pt hyperglycemic (2/2/ steroid use) - glycemic pharmacy consulted (7) Chronic low back pain: Plan: -c/w tramadol (8) Dyslipidemia: Plan: -on statin Plan: Diet:diabetic diet DVT PPx:Lovenox Code Status:DNR/DNI Emergency Contact: (daughter-Ashley) Admission and Anticipated Discharge Date Admission Date: January 26, 2021 Subjective Patient seen in follow-up of hypoxemic respiratory failure, pneumonia, was sent by PCP due to pneumonia found on chest x-ray Currently still using supplemental oxygen Reports she is feeling better and she is inquiring about going home. Says she has caregivers at home but not until Monday. Discussed that we will obtain 2 step study as she is still using supplemental oxygen, and she may need to be discharged on it. Denies any chest pain, fever chills, abdominal pain, nausea vomiting She appears overall comfortable, still has cough (pt says she has chronic cough, no sputum production) Review of Systems Review of Systems: All systems reviewed & are unremarkable except as noted in Subjective Physical Exam Physical Exam: General: WD/WN eld erly F in NAD on s uppl. O2 via NC H EENT: NC/AT. [place] l Conjunctiva, EOM I, PERRL, Sclera i s non-icteric Lung s: somewhat decrea sed BS b/l, no whe ezing, rhonchi, cr ackles Heart: Norm al S1, S2, no murm ur Abdominal: + abbe wel sounds, ND, So ft, NT Psych: AAOx 3, normal affect Results & Data Results & Data ([facility]) Vital Signs (Past 12 Hours) Vital Signs Temp Pulse Pulse Resp BP Pulse Ox 01/31/21 15:51 36.8 C 68 19 125/56 L 92 01/31/21 14:41 66 16 94 01/31/21 14:18 64 01/31/21 11:52 36.6 C 73 19 142/51 H 96 01/31/21 11:20 76 18 93 01/31/21 09:55 80 156/63 H 01/31/21 08:10 36.9 C 81 19 157/71 H 91 Laboratory Results 01/31/21 01/31/21 01/31/21 Range/Units 16:20 11:26 07:49 WBC (4.8-10.8) K/uL RBC (4.2-5.4) M/uL Hgb (12.0-16.0) g/dL Hct (37-47) % MCV (80-100) fL MCH (25-34) pg MCHC (32-36) g/dL RDW Std Deviation (36.4-46.3) fL RDW Coeff of Rakesh (11.5-14.5) % Plt Count (130-400) K/uL MPV (7.4-10.4) fL Sodium (136-145) mmol/L Potassium (3.5-5.1) mmol/L Chloride (98-107) mmol/L Carbon Dioxide (21-32) mmol/L Anion Gap (3-11) BUN (7-18) mg/dl Creatinine (0.6-1.2) mg/dl Est Cr Clr Drug Dosing ml/min Est GFR ( Amer) ml/min Est GFR (Non-Af Amer) ml/min BUN/Creatinine Ratio (10-20) Glucose (70-99) mg/dl POC Glucose 181 H 207 H 129 H (70-99) mg/dl Calcium (8.5-10.1) mg/dl Phosphorus (2.5-4.9) mg/dl Magnesium (1.8-2.4) mg/dl 01/31/21 01/31/21 01/30/21 Range/Units 06:01 06:01 20:47 WBC 9.07 (4.8-10.8) K/uL RBC 3.74 L (4.2-5.4) M/uL Hgb 10.2 L (12.0-16.0) g/dL Hct 33.5 L (37-47) % MCV 89.6 (80-100) fL MCH 27.3 (25-34) pg MCHC 30.4 L (32-36) g/dL RDW Std Deviation 51.5 H (36.4-46.3) fL RDW Coeff of Rakesh 15.7 H (11.5-14.5) % Plt Count 166 (130-400) K/uL MPV 10.7 H (7.4-10.4) fL Sodium 138 (136-145) mmol/L Potassium 4.4 (3.5-5.1) mmol/L Chloride 103 (98-107) mmol/L Carbon Dioxide 29 (21-32) mmol/L Anion Gap 7.0 (3-11) BUN 46 H (7-18) mg/dl Creatinine 1.27 H D (0.6-1.2) mg/dl Est Cr Clr Drug Dosing 34.3 ml/min Est GFR ( Amer) 45.2 ml/min Est GFR (Non-Af Amer) 39.0 ml/min BUN/Creatinine Ratio 36.1 H (10-20) Glucose 127 H (70-99) mg/dl POC Glucose 219 H (70-99) mg/dl Calcium 9.0 (8.5-10.1) mg/dl Phosphorus 3.3 (2.5-4.9) mg/dl Magnesium 1.9 (1.8-2.4) mg/dl Medications Administered Current Inpatient Medications Acetaminophen (Acetaminophen 325 Mg Tab) 650 mg PO Q4H PRN PRN Reason: Pain or Fever Stop: 02/25/21 18:30 Albuterol (Albut/Ipratrop 3mg/0.5mg Neb 3 Ml Vial) 3 ml NEB Q4R [facility] Stop: 02/25/21 18:59 Last Admin: 01/31/21 14:40 Dose: 3 ml Documented by: Amlodipine Besylate (Amlodipine Besylate 5 Mg Tab) 10 mg PO QAM [facility] Stop: 02/26/21 08:59 Last Admin: 01/31/21 09:58 Dose: 10 mg Documented by: Aspirin (Aspirin 81 Mg Ectab) 81 mg PO BID [facility] Stop: 02/25/21 20:59 Last Admin: 01/31/21 09:59 Dose: 81 mg Documented by: Atorvastatin Calcium (Atorvastatin 40 Mg Tab) 40 mg PO HS [facility] Stop: 02/25/21 20:59 Last Admin: 01/30/21 20:08 Dose: 40 mg Documented by: Buspirone HCl (Buspirone 5 Mg Tab) 5 mg PO BID [facility] Stop: 02/25/21 20:59 Last Admin: 01/31/21 10:00 Dose: 5 mg Documented by: Cefdinir (Cefdinir 300 Mg Cap) 300 mg PO BID [facility] Stop: 02/05/21 20:59 Last Admin: 01/31/21 10:00 Dose: 300 mg Documented by: Cetirizine HCl (Cetirizine Hcl 10 Mg Tablet) 10 mg PO QDL [facility] Stop: 02/26/21 11:29 Last Admin: 01/31/21 11:48 Dose: 10 mg Documented by: Dextrose (Dextrose 50% 50 Ml Syringe) 25 - 50 ml IV UD PRN; Protocol PRN Reason: Hypoglycemia Protocol Stop: 02/25/21 19:40 Docusate Sodium (Docusate Sodium 100 Mg Cap) 100 mg PO BID [facility] Stop: 02/25/21 20:59 Last Admin: 01/31/21 11:10 Dose: 100 mg Documented by: Doxycycline Hyclate (Doxycycline Hyclate 100 Mg Cap) 100 mg PO BID [facility] Stop: 02/05/21 20:59 Last Admin: 01/31/21 09:59 Dose: 100 mg Documented by: Duloxetine HCl (Duloxetine Hcl 60 Mg Cap) 60 mg PO QAM [facility] Stop: 02/26/21 08:59 Last Admin: 01/31/21 09:58 Dose: 60 mg Documented by: Enoxaparin Sodium (Enoxaparin Inj 40 Mg/0.4 Ml Syr) 40 mg SQ Q24H [facility] Stop: 02/25/21 18:30 Last Admin: 01/30/21 20:06 Dose: 40 mg Documented by: Fluticasone/Vilanterol (Fluticasone/Vilanterol 100/25mcg 14 Puffs/Inhaler) 1 puffs INH DAILY [facility] Stop: 02/26/21 08:59 Last Admin: 01/31/21 10:00 Dose: 1 puffs Documented by: Furosemide (Furosemide 20 Mg Tab) 20 mg PO QAM [facility] Stop: 02/26/21 08:59 Last Admin: 01/31/21 09:56 Dose: 20 mg Documented by: Gabapentin (Gabapentin 300 Mg Cap) 300 mg PO BID [facility] Stop: 02/25/21 21:59 Last Admin: 01/31/21 09:59 Dose: 300 mg Documented by: Glucagon (Glucagon For Inj 1 Mg Vial) 1 mg SQ UD PRN; Protocol PRN Reason: Hypoglycemia Protocol Stop: 02/25/21 19:40 Glucose (Glucose 10 Tabs/Tube) 4 - 8 tabs PO UD PRN; Protocol PRN Reason: Hypoglycemia Protocol Stop: 02/25/21 19:40 Glucose (Glucose 40% Gel 15 Gm Tube) 15 - 30 gm PO UD PRN; Protocol PRN Reason: Hypoglycemia Protocol Stop: 02/25/21 19:40 Guaifenesin (Guaifenesin 600 Mg Tabcr) 600 mg PO Q12 [facility] Stop: 02/26/21 20:59 Last Admin: 01/31/21 09:57 Dose: 600 mg Documented by: Ceftriaxone Sodium 2,000 mg/ (Dextrose) 70 mls @ 100 mls/hr IV Q24H [facility]; Protocol Last Infusion: 01/28/21 23:39 Dose: Infused Documented by: Insulin Aspart (Insulin Aspart 100 Units/Ml 3 Ml Pen) 0 units SC ACHS [facility]; Protocol Stop: 02/25/21 20:59 Last Admin: 01/31/21 17:37 Dose: 12 units Documented by: Isosorbide Mononitrate (Isosorbide [place] Extended Rel 60 Mg Tabcr) 60 mg PO QAM [facility] Stop: 02/26/21 08:59 Last Admin: 01/31/21 09:56 Dose: 60 mg Documented by: Losartan Potassium (Losartan Potassium 50 Mg Tab) 50 mg PO QAM [facility] Stop: 02/26/21 08:59 Last Admin: 01/31/21 09:59 Dose: 50 mg Documented by: Meclizine HCl (Meclizine Hcl 25 Mg Tab) 25 mg PO BID PRN PRN Reason: Vertigo Stop: 02/25/21 21:24 Melatonin (Melatonin 3 Mg Tab) 9 mg PO [facility] Stop: 02/25/21 20:59 Last Admin: 01/30/21 20:11 Dose: 9 mg Documented by: Metoprolol Tartrate (Metoprolol Tartrate 50 Mg Tab) 50 mg PO BIDM [facility] Stop: 02/26/21 07:59 Last Admin: 01/31/21 18:11 Dose: 50 mg Documented by: Miconazole Nitrate (Miconazole Nitrate Powder 43 Gm) 1 appln EXT PRN PRN PRN Reason: Affected Skin Folds Stop: 02/27/21 04:02 Last Admin: 01/28/21 19:46 Dose: 1 appln Documented by: Miscellaneous (Carbohydrates For Hypoglycemia ) 15 - 30 gm PO UD PRN PRN Reason: Hypoglycemia Protocol Stop: 02/25/21 19:40 Miscellaneous Information (Pharmacy Glycemic Mgmt Consult) 1 ea N/A UD PRN PRN Reason: Consult Stop: 02/28/21 23:05 Montelukast Sodium (Montelukast Sodium 10 Mg Tablet) 10 mg PO [facility] Stop: 02/25/21 20:59 Last Admin: 01/30/21 20:08 Dose: 10 mg Documented by: Multivitamins/Minerals (Calcium 600mg + Vit D 400 Iu Tab) 1 tab PO QDL [facility] Stop: 02/26/21 11:29 Last Admin: 01/31/21 11:48 Dose: 1 tab Documented by: Multivitamins/Minerals (Cerovite Adv Formula Tab) 1 tab PO HS [facility] Stop: 02/25/21 20:59 Last Admin: 01/30/21 20:10 Dose: 1 tab Documented by: Ondansetron HCl (Ondansetron Inj 2 Mg/Ml 2 Ml Vial) 4 mg IV Q6H PRN PRN Reason: Nausea Stop: 02/25/21 18:30 Oxybutynin Chloride (Oxybutynin Chloride Xl 5 Mg Tabcr) 10 mg PO DAILY [facility] Stop: 02/26/21 08:59 Last Admin: 01/31/21 09:57 Dose: 10 mg Documented by: Pantoprazole Sodium (Pantoprazole 40 Mg Tab) 40 mg PO QAM [facility] Stop: 02/26/21 08:59 Last Admin: 01/31/21 09:58 Dose: 40 mg Documented by: Polyethylene Glycol (Polyethylene (Miralax) 17 Gm Pack) 17 gm PO DAILY PRN PRN Reason: Constipation Stop: 02/25/21 18:30 Tramadol HCl (Tramadol Hcl 50 Mg Tablet) 50 mg PO BID LEYDI Stop: 02/25/21 21:59 Last Admin: 01/31/21 11:13 Dose: 50 mg Documented by: Vitamin B Complex (Vitamin B Complex Tab) 1 tab PO QDL LEYDI Stop: 02/26/21 11:29 Last Admin: 01/31/21 11:47 Dose: 1 tab Documented by: (1) Pneumonia Laterality: right Lung location: unspecified part of lung Pneumonia type: due to unspecified organism Qualified Code(s): J18.9 - Pneumonia, unspecified organism
[2021-01-31] MEDS ORDERED: ALBUT/IPRATROP 3MG/0.5MG NEB 3 ML VIAL NEB PRN (20:18)
[2021-01-31] MEDS: ENOXAPARIN INJ 40 MG/0.4 ML SYR SQ SCH (21:03)
[2021-01-31] MEDS: CEROVITE ADV FORMULA TAB PO SCH (21:04)
[2021-01-31] MEDS: MONTELUKAST SODIUM 10 MG TABLET PO SCH (21:04)
[2021-01-31] MEDS: SODIUM CHLORIDE 0.9% 500 ML IV SCH (21:05)
[2021-01-31] MEDS: ATORVASTATIN 40 MG TAB PO SCH (21:06)
[2021-01-31] MEDS: MELATONIN 3 MG TAB PO SCH (21:09)
[2021-01-31 23:07] LABS: Appearance Urine Clear (Clear); Bilirubin Urine Negative (Negative); Blood Urine Negative (Negative); Color Urine Yellow; Glucose Urine UA 2+ (Negative); Ketones Urine Negative (Negative); Leukocyte Esterase Urine Negative (Negative); Nitrite Urine Negative (Negative); Protein Urine Negative (Negative); Specific Gravity Urine 1.021 (1.000-1.030); Urobilinogen Urine Negative (Negative); pH Urine 5.5 (4.5-7.5)
[2021-02-01] MEDS: SODIUM CHLORIDE 0.9% 500 ML IV SCH ×7 (00:47→21:47)
[2021-02-01 07:20] LABS: Hematocrit (blood only) 35.3 % (37-47); Hemoglobin 10.8 g/dL (12.0-16.0); Mean Corpuscular Hemoglobin 27.3 pg (25-34); Mean Corpuscular Hgb Conc 30.6 g/dL (32-36); Mean Corpuscular Volume 89.1 fL (80-100); Platelet Count 161 K/uL (130-400); RDW Coefficient of Variation 15.5 % (11.5-14.5); RDW Standard Deviation 50.7 fL (36.4-46.3); Red Blood Count 3.96 M/uL (4.2-5.4); White Blood Count 9.53 K/uL (4.8-10.8)
[2021-02-01 07:44] LABS: BUN Creatinine Ratio 41.5 (10-20); Calcium 8.8 mg/dl (8.5-10.1); Creatinine Clr Calc Pharmacy 43.9 ml/min; Est GFR (African American) 61.1 ml/min; Est GFR (Non-African American) 52.7 ml/min; Magnesium 2.1 mg/dl (1.8-2.4); Potassium 4.4 mmol/L (3.5-5.1)
[2021-02-01 07:45] LABS: Phosphorus 3.2 mg/dl (2.5-4.9)
[2021-02-01] MEDS: amLODIPine BESYLATE 5 MG TAB PO SCH (07:52)
[2021-02-01] MEDS: OXYBUTYNIN CHLORIDE XL 5 MG TABCR PO SCH (07:52)
[2021-02-01] MEDS: DULoxetine HCL 60 MG CAP PO SCH (07:52)
[2021-02-01] MEDS: guaiFENesin 600 MG TABCR PO SCH ×2 (07:53→21:38)
[2021-02-01] MEDS: DOXYCYCLINE HYCLATE 100 MG CAP PO SCH ×2 (07:53→21:37)
[2021-02-01] MEDS: METOPROLOL TARTRATE 50 MG TAB PO SCH ×2 (07:53→16:52)
[2021-02-01] MEDS: ISOSORBIDE MONO EXTENDED REL 60 MG TABCR PO SCH (07:53)
[2021-02-01] MEDS: FLUTICASONE/VILANTEROL 100/25MCG 14 PUFFS/INHALER INH SCH (07:54)
[2021-02-01] MEDS: ASPIRIN 81 MG ECTAB PO SCH ×2 (07:54→21:37)
[2021-02-01] MEDS: CEFDINIR 300 MG CAP PO SCH ×2 (07:54→21:37)
[2021-02-01] MEDS: busPIRone 5 MG TAB PO SCH ×2 (07:54→21:37)
[2021-02-01] MEDS: GABAPENTIN 300 MG CAP PO SCH ×2 (07:54→21:38)
[2021-02-01] MEDS: PANTOprazole 40 MG TAB PO SCH (07:54)
[2021-02-01] MEDS: DOCUSATE SODIUM 100 MG CAP PO SCH ×2 (07:55→21:37)
[2021-02-01] MEDS: INSULIN ASPART 100 UNITS/ML 3 ML PEN SC SCH ×4 (07:57→21:36)
--- NOTE | 2021-02-01 10:06 | Pharmacy Report ---
Pharmacy Glycemic Short Note 2 - Date of Service February 01, 2021 - Glycemic Short BSG Results (Last 24 hours): 01/31/21 01/31/21 01/31/21 11:26 16:20 20:28 Glucose POC Glucose 207 H 181 H 235 H 02/01/21 02/01/21 06:19 07:42 Glucose 99 POC Glucose 99 OUTPATIENT ANTIDIABETIC REGIMEN: * metformin 1 gm PO daily ASSESSMENT: 02/01 * Prednisone DC today(last day of 50mg was yesterday). Should see a dramatic improvement in BSGs without prednisone on board. Will dc NPH as prednisone dc and empirically loosen CF/CR for novolog. 01/30 * Ms Hernandez is an 85 y/o F with a PMH of T2DM on one oral medication who presents with pneumonia. * Pharmacy consulted yesterday evening for hyperglycemia in setting of prednisone 50 mg daily x 5 days. * BSG 111 mg/dL this morning. * NPH 25 units SQ daily with prednisone (0.3 units/kg) * Novolog tightened to weight-based stress of 3 for carbohydrate ratio. Patient does correct with current CF so will leave that. PLAN FOR INPATIENT GLYCEMIC CONTROL: * Hold outpatient oral diabetes medications * Basal insulin * DC NPH * Bolus insulin * NovoLog per scale ACHS or Q6hrs while NPO * Goal Range: Low 110 mg/dL - High 140 mg/dL * Correction Factor: 30 mg/dL/unit * Nutritional / Prandial insulin per carb ratio of 1 unit per 9 grams CHO consumed PLAN FOR DISCHARGE: * Patient's HbA1C is at goal so continue metformin.
[2021-02-01] MEDS: traMADol HCL 50 MG TABLET PO SCH ×2 (10:10→21:38)
[2021-02-01] MEDS: CETIRIZINE HCL 10 MG TABLET PO SCH (10:44)
[2021-02-01] MEDS: VITAMIN B COMPLEX TAB PO SCH (10:44)
[2021-02-01] MEDS: CALCIUM 600MG + VIT D 400 IU TAB PO SCH (10:44)
--- NOTE | 2021-02-01 17:45 | Hospitalist Progress Note ---
Date of Service February 01, 2021 Assessment & Plan (1) Hypoxemia: (2) Pneumonia: (3) Acute exacerbation of chronic obstructive pulmonary disease: Plan: Pt is a 85 y/o F with hx of Asthma/COPD, DMII, HLD, Nocturnal hypoxia, HTN, OJEDA cirrhosis, CAD, Urinary incontinence, Anxiety, Lumbar DDD, Osteoporosis. Was sent by her PCP for pneumonia on CXR. Pt has chronic cough but it has gotten worse recently. She is also having increased SOB with headache for 1 week. She is not on oxygen at home. Hypoxia with new CXR finding: -Bacterial pneumonia with Asthma/COPD exacerbation -started the pt on doxy and ceftriaxone -now switched to p.o. doxy and cefuroxime -due to wheezing started prednisone, duoneb q4hrs -Sputum Cx ordered - not collected (no sputum production) -CT chest to better visualize the lungs IMPRESSION: 1. Compared to the previous examination, there has been complete resolution of previously identified left upper lobe consolidation. 2. There is no acute chest disease on these noncontrast images. 3. Chronic bronchiectasis and mucous plugging is again seen with improvement from the previous examination as described. 4. Extensive coronary artery calcification and atherosclerotic calcification of the aortic arch and origin of great vessels is again seen. 5. Additional nonacute findings are delineated above. -Unable to wean off of oxygen, still using about 2L -Obtained step 2 study ths morning (02/01) -patient requires 1.5 L of O2 via NC continuously (4) Chronic anemia: Plan: - Hgb is at her baseline - stable during this admission ~11 Elevated Cr - resolved - mildly elev. Cr at 1.2 yesterday (01/31) - likely from poor oral intake - gave gentle fluids, encouraged PO intake - now resolved Cr 0.9 (5) Diabetic peripheral neuropathy: Plan: -c/w gabapentin (6) Type 2 diabetes mellitus: Plan: - will hold metformin and start the pt on ISS - pt hyperglycemic (2/2/ steroid use) - glycemic pharmacy consulted (7) Chronic low back pain: Plan: -c/w tramadol (8) Dyslipidemia: Plan: -on statin Plan: Diet: diabetic diet DVT PPx:Lovenox Code Status:DNR/DNI Emergency Contact: (daughter-Ashley) Admission and Anticipated Discharge Date Admission Date: January 26, 2021 Subjective Patient seen in follow-up of hypoxemic respiratory failure, pneumonia, was sent by PCP due to pneumonia found on chest x-ray Currently still using supplemental oxygen Obtained 2 step study this AM, patient requires continuous 1.5 L, 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 Says she has caregivers starting tomorrow. Denies any chest pain, fever chills, abdominal pain, nausea vomiting She appears overall comfortable, still has cough (pt says she has chronic cough, no sputum production) Review of Systems Review of Systems: All systems reviewed & are unremarkable except as noted in Subjective Physical Exam Physical Exam: General: WD/WN eld erly F in NAD on s uppl. O2 via NC H EENT: NC/AT. Francisca l Conjunctiva, EOM I, PERRL, Sclera i s non-icteric Lung s: somewhat decrea sed BS b/l, no whe ezing, rhonchi, cr ackles Heart: Norm al S1, S2, no murm ur Abdominal: + abbe wel sounds, ND, So ft, NT Psych: AAOx 3, normal affect Results & Data Results & Data ([facility]) Vital Signs (Past 12 Hours) Vital Signs Temp Pulse Pulse Pulse Pulse Pulse Pulse 02/01/21 16:00 37.0 C 69 02/01/21 15:04 64 02/01/21 11:56 36.9 C 60 02/01/21 10:45 73 75 71 63 02/01/21 09:58 72 02/01/21 08:10 36.5 C 73 Resp Resp Resp Resp Resp BP Pulse Ox 02/01/21 16:00 19 146/58 H 96 02/01/21 15:04 02/01/21 11:56 18 127/67 90 02/01/21 10:45 20 20 18 16 02/01/21 09:58 02/01/21 08:10 18 149/60 H 92 Pulse Ox Pulse Ox Pulse Ox Pulse Ox 02/01/21 16:00 02/01/21 15:04 02/01/21 11:56 02/01/21 10:45 93 87 L 92 90 02/01/21 09:58 02/01/21 08:10 Laboratory Results 02/01/21 02/01/21 02/01/21 Range/Units 16:47 11:34 07:42 WBC (4.8-10.8) K/uL RBC (4.2-5.4) M/uL Hgb (12.0-16.0) g/dL Hct (37-47) % MCV (80-100) fL MCH (25-34) pg MCHC (32-36) g/dL RDW Std Deviation (36.4-46.3) fL RDW Coeff of Rakesh (11.5-14.5) % Plt Count (130-400) K/uL MPV (7.4-10.4) fL Sodium (136-145) mmol/L Potassium (3.5-5.1) mmol/L Chloride (98-107) mmol/L Carbon Dioxide (21-32) mmol/L Anion Gap (3-11) BUN (7-18) mg/dl Creatinine (0.6-1.2) mg/dl Est Cr Clr Drug Dosing ml/min Est GFR ( Amer) ml/min Est GFR (Non-Af Amer) ml/min BUN/Creatinine Ratio (10-20) Glucose (70-99) mg/dl POC Glucose 146 H 130 H 99 (70-99) mg/dl Calcium (8.5-10.1) mg/dl Phosphorus (2.5-4.9) mg/dl Magnesium (1.8-2.4) mg/dl Urine Color Urine Appearance (Clear) Urine pH (4.5-7.5) Ur Specific [place] (1.000-1.030) Urine Protein (Negative) Urine Glucose (UA) (Negative) Urine Ketones (Negative) Urine Blood (Negative) Urine Nitrite (Negative) Urine Bilirubin (Negative) Urine Urobilinogen (Negative) Ur Leukocyte Esterase (Negative) 02/01/21 02/01/21 01/31/21 Range/Units 06:19 06:19 Unknown WBC 9.53 (4.8-10.8) K/uL RBC 3.96 L (4.2-5.4) M/uL Hgb 10.8 L (12.0-16.0) g/dL Hct 35.3 L (37-47) % MCV 89.1 (80-100) fL MCH 27.3 (25-34) pg MCHC 30.6 L (32-36) g/dL RDW Std Deviation 50.7 H (36.4-46.3) fL RDW Coeff of Rakesh 15.5 H (11.5-14.5) % Plt Count 161 (130-400) K/uL MPV 11.0 H (7.4-10.4) fL Sodium 139 (136-145) mmol/L Potassium 4.4 (3.5-5.1) mmol/L Chloride 104 (98-107) mmol/L Carbon Dioxide 28 (21-32) mmol/L Anion Gap 7.0 (3-11) BUN 41 H (7-18) mg/dl Creatinine 0.99 (0.6-1.2) mg/dl Est Cr Clr Drug Dosing 43.9 ml/min Est GFR ( Amer) 61.1 ml/min Est GFR (Non-Af Amer) 52.7 ml/min BUN/Creatinine Ratio 41.5 H (10-20) Glucose 99 (70-99) mg/dl POC Glucose (70-99) mg/dl Calcium 8.8 (8.5-10.1) mg/dl Phosphorus 3.2 (2.5-4.9) mg/dl Magnesium 2.1 (1.8-2.4) mg/dl Urine Color Yellow Urine Appearance Clear (Clear) Urine pH 5.5 (4.5-7.5) Ur Specific [place] 1.021 (1.000-1.030) Urine Protein Negative (Negative) Urine Glucose (UA) 2+ H (Negative) Urine Ketones Negative (Negative) Urine Blood Negative (Negative) Urine Nitrite Negative (Negative) Urine Bilirubin Negative (Negative) Urine Urobilinogen Negative (Negative) Ur Leukocyte Esterase Negative (Negative) 01/31/21 Range/Units 20:28 WBC (4.8-10.8) K/uL RBC (4.2-5.4) M/uL Hgb (12.0-16.0) g/dL Hct (37-47) % MCV (80-100) fL MCH (25-34) pg MCHC (32-36) g/dL RDW Std Deviation (36.4-46.3) fL RDW Coeff of Rakesh (11.5-14.5) % Plt Count (130-400) K/uL MPV (7.4-10.4) fL Sodium (136-145) mmol/L Potassium (3.5-5.1) mmol/L Chloride (98-107) mmol/L Carbon Dioxide (21-32) mmol/L Anion Gap (3-11) BUN (7-18) mg/dl Creatinine (0.6-1.2) mg/dl Est Cr Clr Drug Dosing ml/min Est GFR ( Amer) ml/min Est GFR (Non-Af Amer) ml/min BUN/Creatinine Ratio (10-20) Glucose (70-99) mg/dl POC Glucose 235 H (70-99) mg/dl Calcium (8.5-10.1) mg/dl Phosphorus (2.5-4.9) mg/dl Magnesium (1.8-2.4) mg/dl Urine Color Urine Appearance (Clear) Urine pH (4.5-7.5) Ur Specific [place] (1.000-1.030) Urine Protein (Negative) Urine Glucose (UA) (Negative) Urine Ketones (Negative) Urine Blood (Negative) Urine Nitrite (Negative) Urine Bilirubin (Negative) Urine Urobilinogen (Negative) Ur Leukocyte Esterase (Negative) Medications Administered Current Inpatient Medications Acetaminophen (Acetaminophen 325 Mg Tab) 650 mg PO Q4H PRN PRN Reason: Pain or Fever Stop: 02/25/21 18:30 Albuterol (Albut/Ipratrop 3mg/0.5mg Neb 3 Ml Vial) 3 ml NEB Q4R PRN PRN Reason: Wheezing Stop: 02/25/21 18:59 Amlodipine Besylate (Amlodipine Besylate 5 Mg Tab) 10 mg PO QA [facility] Stop: 02/26/21 08:59 Last Admin: 02/01/21 07:52 Dose: 10 mg Documented by: Aspirin (Aspirin 81 Mg Ectab) 81 mg PO BID [facility] Stop: 02/25/21 20:59 Last Admin: 02/01/21 07:54 Dose: 81 mg Documented by: Atorvastatin Calcium (Atorvastatin 40 Mg Tab) 40 mg PO HS [facility] Stop: 02/25/21 20:59 Last Admin: 01/31/21 21:06 Dose: 40 mg Documented by: Buspirone HCl (Buspirone 5 Mg Tab) 5 mg PO BID [facility] Stop: 02/25/21 20:59 Last Admin: 02/01/21 07:54 Dose: 5 mg Documented by: Cefdinir (Cefdinir 300 Mg Cap) 300 mg PO BID [facility] Stop: 02/05/21 20:59 Last Admin: 02/01/21 07:54 Dose: 300 mg Documented by: Cetirizine HCl (Cetirizine Hcl 10 Mg Tablet) 10 mg PO QDL [facility] Stop: 02/26/21 11:29 Last Admin: 02/01/21 10:44 Dose: 10 mg Documented by: Dextrose (Dextrose 50% 50 Ml Syringe) 25 - 50 ml IV UD PRN; Protocol PRN Reason: Hypoglycemia Protocol Stop: 02/25/21 19:40 Docusate Sodium (Docusate Sodium 100 Mg Cap) 100 mg PO BID [facility] Stop: 02/25/21 20:59 Last Admin: 02/01/21 07:55 Dose: 100 mg Documented by: Doxycycline Hyclate (Doxycycline Hyclate 100 Mg Cap) 100 mg PO BID [facility] Stop: 02/05/21 20:59 Last Admin: 02/01/21 07:53 Dose: 100 mg Documented by: Duloxetine HCl (Duloxetine Hcl 60 Mg Cap) 60 mg PO QAM [facility] Stop: 02/26/21 08:59 Last Admin: 02/01/21 07:52 Dose: 60 mg Documented by: Enoxaparin Sodium (Enoxaparin Inj 40 Mg/0.4 Ml Syr) 40 mg SQ Q24H [facility] Stop: 02/25/21 18:30 Last Admin: 01/31/21 21:03 Dose: 40 mg Documented by: Fluticasone/Vilanterol (Fluticasone/Vilanterol 100/25mcg 14 Puffs/Inhaler) 1 puffs INH DAILY [facility] Stop: 02/26/21 08:59 Last Admin: 02/01/21 07:54 Dose: 1 puffs Documented by: Furosemide (Furosemide 20 Mg Tab) 20 mg PO QAM [facility] Stop: 02/26/21 08:59 Last Admin: 01/31/21 09:56 Dose: 20 mg Documented by: Gabapentin (Gabapentin 300 Mg Cap) 300 mg PO BID [facility] Stop: 02/25/21 21:59 Last Admin: 02/01/21 07:54 Dose: 300 mg Documented by: Glucagon (Glucagon For Inj 1 Mg Vial) 1 mg SQ UD PRN; Protocol PRN Reason: Hypoglycemia Protocol Stop: 02/25/21 19:40 Glucose (Glucose 10 Tabs/Tube) 4 - 8 tabs PO UD PRN; Protocol PRN Reason: Hypoglycemia Protocol Stop: 02/25/21 19:40 Glucose (Glucose 40% Gel 15 Gm Tube) 15 - 30 gm PO UD PRN; Protocol PRN Reason: Hypoglycemia Protocol Stop: 02/25/21 19:40 Guaifenesin (Guaifenesin 600 Mg Tabcr) 600 mg PO Q12 [facility] Stop: 02/26/21 20:59 Last Admin: 02/01/21 07:53 Dose: 600 mg Documented by: Ceftriaxone Sodium 2,000 mg/ (Dextrose) 70 mls @ 100 mls/hr IV Q24H [facility]; Protocol Last Infusion: 01/28/21 23:39 Dose: Infused Documented by: Sodium Chloride (Nss) 500 mls @ 125 mls/hr IV .Q4H [facility] Stop: 03/02/21 18:59 Last Admin: 02/01/21 14:24 Dose: Not Given Documented by: Insulin Aspart (Insulin Aspart 100 Units/Ml 3 Ml Pen) 0 units SC [facility]; Protocol Stop: 02/25/21 20:59 Last Admin: 02/01/21 16:53 Dose: 6 units Documented by: Isosorbide Mononitrate (Isosorbide [place] Extended Rel 60 Mg Tabcr) 60 mg PO QAM [facility] Stop: 02/26/21 08:59 Last Admin: 02/01/21 07:53 Dose: 60 mg Documented by: Losartan Potassium (Losartan Potassium 50 Mg Tab) 50 mg PO QAM [facility] Stop: 02/26/21 08:59 Last Admin: 01/31/21 09:59 Dose: 50 mg Documented by: Meclizine HCl (Meclizine Hcl 25 Mg Tab) 25 mg PO BID PRN PRN Reason: Vertigo Stop: 02/25/21 21:24 Melatonin (Melatonin 3 Mg Tab) 9 mg PO HS [facility] Stop: 02/25/21 20:59 Last Admin: 01/31/21 21:09 Dose: 9 mg Documented by: Metoprolol Tartrate (Metoprolol Tartrate 50 Mg Tab) 50 mg PO BIDM [facility] Stop: 02/26/21 07:59 Last Admin: 02/01/21 16:52 Dose: 50 mg Documented by: Miconazole Nitrate (Miconazole Nitrate Powder 43 Gm) 1 appln EXT PRN PRN PRN Reason: Affected Skin Folds Stop: 02/27/21 04:02 Last Admin: 01/28/21 19:46 Dose: 1 appln Documented by: Miscellaneous (Carbohydrates For Hypoglycemia ) 15 - 30 gm PO UD PRN PRN Reason: Hypoglycemia Protocol Stop: 02/25/21 19:40 Miscellaneous Information (Pharmacy Glycemic Mgmt Consult) 1 ea N/A UD PRN PRN Reason: Consult Stop: 02/28/21 23:05 Montelukast Sodium (Montelukast Sodium 10 Mg Tablet) 10 mg PO HS [facility] Stop: 02/25/21 20:59 Last Admin: 01/31/21 21:04 Dose: 10 mg Documented by: Multivitamins/Minerals (Calcium 600mg + Vit D 400 Iu Tab) 1 tab PO QDL [facility] Stop: 02/26/21 11:29 Last Admin: 02/01/21 10:44 Dose: 1 tab Documented by: Multivitamins/Minerals (Cerovite Adv Formula Tab) 1 tab PO HS [facility] Stop: 02/25/21 20:59 Last Admin: 01/31/21 21:04 Dose: 1 tab Documented by: Ondansetron HCl (Ondansetron Inj 2 Mg/Ml 2 Ml Vial) 4 mg IV Q6H PRN PRN Reason: Nausea Stop: 02/25/21 18:30 Oxybutynin Chloride (Oxybutynin Chloride Xl 5 Mg Tabcr) 10 mg PO DAILY [facility] Stop: 02/26/21 08:59 Last Admin: 02/01/21 07:52 Dose: 10 mg Documented by: Pantoprazole Sodium (Pantoprazole 40 Mg Tab) 40 mg PO QAM [facility] Stop: 02/26/21 08:59 Last Admin: 02/01/21 07:54 Dose: 40 mg Documented by: Polyethylene Glycol (Polyethylene (Miralax) 17 Gm Pack) 17 gm PO DAILY PRN PRN Reason: Constipation Stop: 02/25/21 18:30 Tramadol HCl (Tramadol Hcl 50 Mg Tablet) 50 mg PO BID [facility] Stop: 02/25/21 21:59 Last Admin: 02/01/21 10:10 Dose: Not Given Documented by: Vitamin B Complex (Vitamin B Complex Tab) 1 tab PO QDL [facility] Stop: 02/26/21 11:29 Last Admin: 02/01/21 10:44 Dose: 1 tab Documented by: (1) Pneumonia Laterality: right Lung location: unspecified part of lung Pneumonia type: due to unspecified organism Qualified Code(s): J18.9 - Pneumonia, unspecified organism
[2021-02-01] MEDS: ATORVASTATIN 40 MG TAB PO SCH (21:37)
[2021-02-01] MEDS: ENOXAPARIN INJ 40 MG/0.4 ML SYR SQ SCH (21:38)
[2021-02-01] MEDS: MONTELUKAST SODIUM 10 MG TABLET PO SCH (21:38)
[2021-02-01] MEDS: MELATONIN 3 MG TAB PO SCH (21:38)
[2021-02-01] MEDS: CEROVITE ADV FORMULA TAB PO SCH (21:38)
[2021-02-02] MEDS: SODIUM CHLORIDE 0.9% 500 ML IV SCH ×2 (04:51→06:06)
[2021-02-02] MEDS: guaiFENesin 600 MG TABCR PO SCH (07:41)
[2021-02-02] MEDS: DOXYCYCLINE HYCLATE 100 MG CAP PO SCH (07:41)
[2021-02-02] MEDS: GABAPENTIN 300 MG CAP PO SCH (07:41)
[2021-02-02] MEDS: ASPIRIN 81 MG ECTAB PO SCH (07:42)
[2021-02-02] MEDS: busPIRone 5 MG TAB PO SCH (07:42)
[2021-02-02] MEDS: CEFDINIR 300 MG CAP PO SCH (07:42)
[2021-02-02] MEDS: ISOSORBIDE MONO EXTENDED REL 60 MG TABCR PO SCH (07:43)
[2021-02-02] MEDS: amLODIPine BESYLATE 5 MG TAB PO SCH (07:44)
[2021-02-02] MEDS: METOPROLOL TARTRATE 50 MG TAB PO SCH (07:44)
[2021-02-02] MEDS: DULoxetine HCL 60 MG CAP PO SCH (07:44)
[2021-02-02] MEDS: FLUTICASONE/VILANTEROL 100/25MCG 14 PUFFS/INHALER INH SCH (07:45)
[2021-02-02] MEDS: DOCUSATE SODIUM 100 MG CAP PO SCH (07:45)
[2021-02-02] MEDS: OXYBUTYNIN CHLORIDE XL 5 MG TABCR PO SCH (07:46)
[2021-02-02] MEDS: PANTOprazole 40 MG TAB PO SCH (07:46)
[2021-02-02] MEDS: traMADol HCL 50 MG TABLET PO SCH (07:49)
[2021-02-02] MEDS: INSULIN ASPART 100 UNITS/ML 3 ML PEN SC SCH ×2 (07:50→12:01)
--- NOTE | 2021-02-02 07:55 | Hospitalist Progress Note ---
Date of Service February 02, 2021 Assessment & Plan (1) Hypoxemia: (2) Pneumonia: (3) Acute exacerbation of chronic obstructive pulmonary disease: Plan: Pt is a 85 y/o F with hx of Asthma/COPD, DMII, HLD, Nocturnal hypoxia, HTN, OJEDA cirrhosis, CAD, Urinary incontinence, Anxiety, Lumbar DDD, Osteoporosis. Was sent by her PCP for pneumonia on CXR. Pt has chronic cough but it has gotten worse recently. She is also having increased SOB with headache for 1 week. She is not on oxygen at home. Hypoxia with new CXR finding: -Bacterial pneumonia with Asthma/COPD exacerbation -started the pt on doxy and ceftriaxone - now switched to p.o. doxy and cefuroxime -due to wheezing started prednisone, duoneb q4hrs -Sputum Cx ordered - not collected (no sputum production) -CT chest to better visualize the lungs IMPRESSION: 1. Compared to the previous examination, there has been complete resolution of previously identified left upper lobe consolidation. 2. There is no acute chest disease on these noncontrast images. 3. Chronic bronchiectasis and mucous plugging is again seen with improvement from the previous examination as described. 4. Extensive coronary artery calcification and atherosclerotic calcification of the aortic arch and origin of great vessels is again seen. 5. Additional nonacute findings are delineated above. -Unable to wean off of oxygen, still using about 2L -Obtained step 2 study (02/01) - patient requires 1.5 L of O2 via NC continuously Follow-up with PCP arranged for February 05, also recommend to follow-up with pulmonary medicine (4) Chronic anemia: Plan: - Hgb is at her baseline - stable during this admission ~11 Elevated Cr - resolved - mildly elev. Cr at 1.2 yesterday (01/31) - likely from poor oral intake - gave gentle fluids, encouraged PO intake - now resolved Cr 0.9 (5) Diabetic peripheral neuropathy: Plan: -c/w gabapentin (6) Type 2 diabetes mellitus: Plan: - will hold metformin and start the pt on ISS - pt hyperglycemic (2/2/ steroid use) - glycemic pharmacy consulted (7) Chronic low back pain: Plan: -c/w tramadol (8) Dyslipidemia: Plan: -on statin Plan: Diet: diabetic diet DVT PPx:Lovenox Code Status:DNR/DNI Emergency Contact: (daughter-Ashley) Admission and Anticipated Discharge Date Admission Date: January 26, 2021 Subjective Patient seen in follow-up of hypoxemic respiratory failure, pneumonia, was sent by PCP due to pneumonia found on chest x-ray Currently still using supplemental oxygen Obtained 2 step study, patient requires continuous 1.5 L, 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 Review of Systems Review of Systems: All systems reviewed & are unremarkable except as noted in Subjective Physical Exam Physical Exam: General: WD/WN eld erly F in NAD on s uppl. O2 via NC H EENT: NC/AT. Francisca l Conjunctiva, EOM I, PERRL, Sclera i s non-icteric Lung s: somewhat decrea sed BS b/l, no whe ezing, rhonchi, cr ackles Heart: Norm al S1, S2, no murm ur Abdominal: + abbe wel sounds, ND, So ft, NT Psych: AAOx 3, normal affect Results & Data Results & Data ([facility]) Vital Signs (Past 12 Hours) Vital Signs Temp Pulse Pulse Resp BP BP Pulse Ox 02/02/21 03:34 36.7 C 67 18 152/72 H 92 02/01/21 22:58 69 02/01/21 22:29 36.8 C 71 18 170/74 H 92 02/01/21 20:19 36.8 C 67 18 145/65 H 93 Medications Administered Current Inpatient Medications Acetaminophen (Acetaminophen 325 Mg Tab) 650 mg PO Q4H PRN PRN Reason: Pain or Fever Stop: 02/25/21 18:30 Albuterol (Albut/Ipratrop 3mg/0.5mg Neb 3 Ml Vial) 3 ml NEB Q4R PRN PRN Reason: Wheezing Stop: 02/25/21 18:59 Amlodipine Besylate (Amlodipine Besylate 5 Mg Tab) 10 mg PO QAM [facility] Stop: 02/26/21 08:59 Last Admin: 02/02/21 07:44 Dose: 10 mg Documented by: Aspirin (Aspirin 81 Mg Ectab) 81 mg PO BID [facility] Stop: 02/25/21 20:59 Last Admin: 02/02/21 07:42 Dose: 81 mg Documented by: Atorvastatin Calcium (Atorvastatin 40 Mg Tab) 40 mg PO HS [facility] Stop: 02/25/21 20:59 Last Admin: 02/01/21 21:37 Dose: 40 mg Documented by: Buspirone HCl (Buspirone 5 Mg Tab) 5 mg PO BID [facility] Stop: 02/25/21 20:59 Last Admin: 02/02/21 07:42 Dose: 5 mg Documented by: Cefdinir (Cefdinir 300 Mg Cap) 300 mg PO BID [facility] Stop: 02/05/21 20:59 Last Admin: 02/02/21 07:42 Dose: 300 mg Documented by: Cetirizine HCl (Cetirizine Hcl 10 Mg Tablet) 10 mg PO QDL [facility] Stop: 02/26/21 11:29 Last Admin: 02/01/21 10:44 Dose: 10 mg Documented by: Dextrose (Dextrose 50% 50 Ml Syringe) 25 - 50 ml IV UD PRN; Protocol PRN Reason: Hypoglycemia Protocol Stop: 02/25/21 19:40 Docusate Sodium (Docusate Sodium 100 Mg Cap) 100 mg PO BID [facility] Stop: 02/25/21 20:59 Last Admin: 02/02/21 07:45 Dose: 100 mg Documented by: Doxycycline Hyclate (Doxycycline Hyclate 100 Mg Cap) 100 mg PO BID [facility] Stop: 02/05/21 20:59 Last Admin: 02/02/21 07:41 Dose: 100 mg Documented by: Duloxetine HCl (Duloxetine Hcl 60 Mg Cap) 60 mg PO QAM [facility] Stop: 02/26/21 08:59 Last Admin: 02/02/21 07:44 Dose: 60 mg Documented by: Enoxaparin Sodium (Enoxaparin Inj 40 Mg/0.4 Ml Syr) 40 mg SQ Q24H [facility] Stop: 02/25/21 18:30 Last Admin: 02/01/21 21:38 Dose: 40 mg Documented by: Fluticasone/Vilanterol (Fluticasone/Vilanterol 100/25mcg 14 Puffs/Inhaler) 1 puffs INH DAILY [facility] Stop: 02/26/21 08:59 Last Admin: 02/02/21 07:45 Dose: 1 puffs Documented by: Furosemide (Furosemide 20 Mg Tab) 20 mg PO QAM [facility] Stop: 02/26/21 08:59 Last Admin: 01/31/21 09:56 Dose: 20 mg Documented by: Gabapentin (Gabapentin 300 Mg Cap) 300 mg PO BID [facility] Stop: 02/25/21 21:59 Last Admin: 02/02/21 07:41 Dose: 300 mg Documented by: Glucagon (Glucagon For Inj 1 Mg Vial) 1 mg SQ UD PRN; Protocol PRN Reason: Hypoglycemia Protocol Stop: 02/25/21 19:40 Glucose (Glucose 10 Tabs/Tube) 4 - 8 tabs PO UD PRN; Protocol PRN Reason: Hypoglycemia Protocol Stop: 02/25/21 19:40 Glucose (Glucose 40% Gel 15 Gm Tube) 15 - 30 gm PO UD PRN; Protocol PRN Reason: Hypoglycemia Protocol Stop: 02/25/21 19:40 Guaifenesin (Guaifenesin 600 Mg Tabcr) 600 mg PO Q12 [facility] Stop: 02/26/21 20:59 Last Admin: 02/02/21 07:41 Dose: 600 mg Documented by: Ceftriaxone Sodium 2,000 mg/ (Dextrose) 70 mls @ 100 mls/hr IV Q24H [facility]; Protocol Last Infusion: 01/28/21 23:39 Dose: Infused Documented by: Sodium Chloride (Nss) 500 mls @ 125 mls/hr IV .Q4H [facility] Stop: 03/02/21 18:59 Last Admin: 02/02/21 06:06 Dose: Not Given Documented by: Insulin Aspart (Insulin Aspart 100 Units/Ml 3 Ml Pen) 0 units SC ACHS [facility]; Protocol Stop: 02/25/21 20:59 Last Admin: 02/02/21 07:50 Dose: 6 units Documented by: Isosorbide Mononitrate (Isosorbide [place] Extended Rel 60 Mg Tabcr) 60 mg PO QAM [facility] Stop: 02/26/21 08:59 Last Admin: 02/02/21 07:43 Dose: 60 mg Documented by: Losartan Potassium (Losartan Potassium 50 Mg Tab) 50 mg PO QAM [facility] Stop: 02/26/21 08:59 Last Admin: 01/31/21 09:59 Dose: 50 mg Documented by: Meclizine HCl (Meclizine Hcl 25 Mg Tab) 25 mg PO BID PRN PRN Reason: Vertigo Stop: 02/25/21 21:24 Melatonin (Melatonin 3 Mg Tab) 9 mg PO HS [facility] Stop: 02/25/21 20:59 Last Admin: 02/01/21 21:38 Dose: 9 mg Documented by: Metoprolol Tartrate (Metoprolol Tartrate 50 Mg Tab) 50 mg PO BIDM [facility] Stop: 02/26/21 07:59 Last Admin: 02/02/21 07:44 Dose: 50 mg Documented by: Miconazole Nitrate (Miconazole Nitrate Powder 43 Gm) 1 appln EXT PRN PRN PRN Reason: Affected Skin Folds Stop: 02/27/21 04:02 Last Admin: 01/28/21 19:46 Dose: 1 appln Documented by: Miscellaneous (Carbohydrates For Hypoglycemia ) 15 - 30 gm PO UD PRN PRN Reason: Hypoglycemia Protocol Stop: 02/25/21 19:40 Miscellaneous Information (Pharmacy Glycemic Mgmt Consult) 1 ea N/A UD PRN PRN Reason: Consult Stop: 02/28/21 23:05 Montelukast Sodium (Montelukast Sodium 10 Mg Tablet) 10 mg PO HS [facility] Stop: 02/25/21 20:59 Last Admin: 02/01/21 21:38 Dose: 10 mg Documented by: Multivitamins/Minerals (Calcium 600mg + Vit D 400 Iu Tab) 1 tab PO QDL [facility] Stop: 02/26/21 11:29 Last Admin: 02/01/21 10:44 Dose: 1 tab Documented by: Multivitamins/Minerals (Cerovite Adv Formula Tab) 1 tab PO HS [facility] Stop: 02/25/21 20:59 Last Admin: 02/01/21 21:38 Dose: 1 tab Documented by: Ondansetron HCl (Ondansetron Inj 2 Mg/Ml 2 Ml Vial) 4 mg IV Q6H PRN PRN Reason: Nausea Stop: 02/25/21 18:30 Oxybutynin Chloride (Oxybutynin Chloride Xl 5 Mg Tabcr) 10 mg PO DAILY [facility] Stop: 02/26/21 08:59 Last Admin: 02/02/21 07:46 Dose: 10 mg Documented by: Pantoprazole Sodium (Pantoprazole 40 Mg Tab) 40 mg PO QAM [facility] Stop: 02/26/21 08:59 Last Admin: 02/02/21 07:46 Dose: 40 mg Documented by: Polyethylene Glycol (Polyethylene (Miralax) 17 Gm Pack) 17 gm PO DAILY PRN PRN Reason: Constipation Stop: 02/25/21 18:30 Tramadol HCl (Tramadol Hcl 50 Mg Tablet) 50 mg PO BID [facility] Stop: 02/25/21 21:59 Last Admin: 02/02/21 07:49 Dose: 50 mg Documented by: Vitamin B Complex (Vitamin B Complex Tab) 1 tab PO QDL [facility] Stop: 02/26/21 11:29 Last Admin: 02/01/21 10:44 Dose: 1 tab Documented by: (1) Pneumonia Laterality: right Lung location: unspecified part of lung Pneumonia type: due to unspecified organism Qualified Code(s): J18.9 - Pneumonia, unspecified organism
--- NOTE | 2021-02-02 09:07 | Discharge Summary ---
Date of Service February 02, 2021 Admission HPI Per Admitting Provider Pt is a 85 y/o F with hx of Asthma/COPD, DMII, HLD, Nocturnal hypoxia, HTN, OJEDA cirrhosis, CAD, Urinary incontinence, Anxiety, Lumbar DDD, Osteoporosis was sent by her PCP for pneumonia on CXR. -per pt she has chronic cough but it has gotten worse recently. She is also having increased SOB with headache for 1 week. Denied any N/V, diarrhea or CP. Per pt she is not on oxygen at home. CXR from the clinic: Small nodular opacities throughout the lungs Admission Exam Per Admitting Provider General:.NC in place,NAD, obese pt HEENT:.Normocephalic and atraumatic, Normal Conjunctiva, EOMI, Sclera is non- icteric Lungs:.slightly decreased BS b/l with upper lobes expiratory wheezing Heart:.Normal S1, S2, no murmur Abdominal:.ND, Soft, NT Psych:.AAOx3, normal affect Principal Diagnosis Hypoxia secondary to community acquired pneumonia and COPD/asthma exacerbation Discharge Exam General: WD/WN elderly F in NAD on suppl. O2 via NC HEENT: NC/AT. Normal Conjunctiva, EOMI, PERRL, Sclera is non-icteric Lungs: somewhat decreased BS b/l, no wheezing, rhonchi, crackles Heart: Normal S1, S2, no murmur Abdominal: + bowel sounds, ND, Soft, NT Psych: AAOx3, normal affect Discharge Data Allergies Allergy/AdvReac Type Severity Reaction Status Date / Time azelastine Allergy Intermediate elevated bp Verified 01/26/21 16:04 trospium Allergy Intermediate hives Verified 01/26/21 16:04 azithromycin Allergy Mild Rash Verified 01/26/21 16:04 citalopram Allergy Unknown UNKNOWN Verified 01/26/21 16:04 chlorpheniramine AdvReac Intermediate ELEVATED BP Verified 01/26/21 16:04 Corticosteroids AdvReac Intermediate ELEVATED BP Verified 01/26/21 16:04 (Glucocorticoids) fexofenadine AdvReac Intermediate ELEVATED BP Verified 01/26/21 16:04 fluticasone AdvReac Intermediate ELEVATED BP Verified 01/26/21 16:04 hydrocodone AdvReac Intermediate ELEVATED BP Verified 01/26/21 16:04 magnesium salicylate AdvReac Intermediate ELEVATED BP Verified 01/26/21 16:04 salicylates AdvReac Intermediate ELEVATED BP Verified 01/26/21 16:04 Consultations 01/26/21 15:15 ED Decision to Admit Stat Ordered Studies 01/26/21 15:32 CT chest diagnostic wo con Stat IMPRESSION: 1. Compared to the previous examination, there has been complete resolution of previously identified left upper lobe consolidation. 2. There is no acute chest disease on these noncontrast images. 3. Chronic bronchiectasis and mucous plugging is again seen with improvement from the previous examination as described. 4. Extensive coronary artery calcification and atherosclerotic calcification of the aortic arch and origin of great vessels is again seen. 5. Additional nonacute findings are delineated above. Hospital Course (1) Hypoxemia: (2) Pneumonia: (3) Acute exacerbation of chronic obstructive pulmonary disease: Pt is a 85 y/o F with hx of Asthma/COPD, DMII, HLD, Nocturnal hypoxia, HTN, OJEDA cirrhosis, CAD, Urinary incontinence, Anxiety, Lumbar DDD, Osteoporosis. Was sent by her PCP for pneumonia on CXR. Pt has chronic cough but it has gotten worse recently. She is also having increased SOB with headache for 1 week. She is not on oxygen at home. Hypoxia with new CXR finding: -Bacterial pneumonia with Asthma/COPD exacerbation -started the pt on doxy and ceftriaxone - now switched to p.o. doxy and cefuroxime -due to wheezing started prednisone, duoneb q4hrs -Sputum Cx ordered - not collected (no sputum production) -CT chest to better visualize the lungs IMPRESSION: 1. Compared to the previous examination, there has been complete resolution of previously identified left upper lobe consolidation. 2. There is no acute chest disease on these noncontrast images. 3. Chronic bronchiectasis and mucous plugging is again seen with improvement from the previous examination as described. 4. Extensive coronary artery calcification and atherosclerotic calcification of the aortic arch and origin of great vessels is again seen. 5. Additional nonacute findings are delineated above. -Unable to wean off of oxygen, still using about 2L -Obtained step 2 study (02/01) - patient requires 1.5 L of O2 via NC continuously Follow-up with PCP arranged for February 05, also recommend to follow-up with pulmonary medicine (4) Chronic anemia: - Hgb is at her baseline - stable during this admission ~11 Elevated Cr - resolved - mildly elev. Cr at 1.2 yesterday (01/31) - likely from poor oral intake - gave gentle fluids, encouraged PO intake - now resolved Cr 0.9 (5) Diabetic peripheral neuropathy: -c/w gabapentin (6) Type 2 diabetes mellitus: - will hold metformin and start the pt on ISS - pt hyperglycemic (2/2/ steroid use) - glycemic pharmacy consulted (7) Chronic low back pain: -c/w tramadol (8) Dyslipidemia: -on statin Diet: diabetic diet Total Time Total Time Spent Total Time Spent (In Minutes): 40 Discharge Plan Discharge Items Patient Disposition: Home - Self-Care Reason For Visit: RML INFILTRATE, SENT FROM CLINIC Discharge Diagnosis: Hypoxia secondary to community acquired pneumonia and COPD/asthma exacerbation Activity: Per Instructions section Non-emergency contact: Primary Care Provider Call non-emergency contact if: you have any medication questions and your symptoms worsen Follow-up/Referrals: Dena Aquino MD [Outside Practitioners] - (Date & Time 02/05/2021 12:00 PM Provider Dena Thomas MD Department [facility] - Diet: Carb Consistent or DM2 and Heart Healthy Addtl Attending Provider Instructions: Follow-up with your primary care doctor, the appointment was scheduled for you for February 05. It is also recommended that you follow-up with pulmonary medicine. You will need to use oxygen, 1.5 L continuously. Continue using guaifenesin/Mucinex and flutter valve. Pending Studies at Discharge: No Stand-Alone Forms: My [facility], Smoking Cessation Medications and DC Order Prescriptions: New guaifenesin [Mucinex] 600 mg Tablet Extended Release 12hr 600 mg PO Q12 Qty: 10 RF: 0 Continued amlodipine [Norvasc] 10 mg tablet 10 mg PO QAM RF: 0 docusate sodium [Colace] 100 mg capsule 100 mg PO BID RF: 0 gabapentin 300 mg capsule 300 mg PO AMPM RF: 0 montelukast [Singulair] 10 mg tablet 10 mg PO HS RF: 0 isosorbide mononitrate 60 mg tablet extended release 24 hr 60 mg PO QAM RF: 0 furosemide 20 mg tablet 20 mg PO QAM RF: 0 tramadol 50 mg tablet 50 mg PO AMPM RF: 0 nitroglycerin 0.4 mg tablet, sublingual 0.4 mg SL Q5M PRN (Reason: Chest Pain) RF: 0 aspirin 81 mg Tablet,Delayed Release (Dr/Ec) 81 mg PO BID RF: 0 duloxetine [Cymbalta] 60 mg capsule,delayed release(DR/EC) 60 mg PO QAM RF: 0 melatonin 5 mg tablet 10 mg PO HS RF: 0 fluticasone propion-salmeterol [Advair Diskus] 250-50 mcg/dose blister with device 1 inh INHALATION BID RF: 0 cetirizine 10 mg Tablet 10 mg PO QDL RF: 0 acetaminophen 500 mg tablet 500 mg PO BID RF: 0 metoprolol tartrate 50 mg tablet 50 mg PO BIDM RF: 0 losartan 50 mg Tablet 50 mg PO QAM RF: 0 atorvastatin 40 mg Tablet 40 mg PO HS RF: 0 buspirone 5 mg Tablet 5 mg PO BID RF: 0 omeprazole 40 mg Capsule,Delayed Release(Dr/Ec) 40 mg PO QAM RF: 0 meclizine 25 mg Tablet 25 mg PO BID PRN (Reason: Vertigo) RF: 0 Cerovite Senior Tablet 1 tab PO HS RF: 0 metformin 500 mg tablet 1,000 mg PO DAILY RF: 0 vitamin B complex-folic acid [Balance B-50 (with folic acid)] 0.4 mg tablet 1 tab PO .DAILY AT NOON RF: 0 calcium carbonate-vitamin D3 [Oyster Shell Calcium-Vit D3] 500 mg(1,250mg) - 200 unit tablet 1 tab PO QDL RF: 0 oxybutynin chloride 10 mg tablet extended release 24hr 10 mg PO DAILY RF: 0 acetaminophen 325 mg Tablet 650 mg PO QID MDD 3g PRN (Reason: Fever Or Pain) RF: 0 Discharge Orders: Discharge Order (Routine); Ordered 02/02/21 Ordered By: Peter Slaughter Admission Data Admit Date/Time: 01/26/21 15:32 Attending Provider: Peter Slaughter Admit Provider: Sangeetha Mao Primary Care Provider: Garcia Lira Other Providers: Sangeetha Mao ; [facility]
[2021-02-02] MEDS: LOSARTAN POTASSIUM 50 MG TAB PO SCH (11:41)
[2021-02-02] MEDS: CETIRIZINE HCL 10 MG TABLET PO SCH (11:59)
[2021-02-02] MEDS: VITAMIN B COMPLEX TAB PO SCH (11:59)
[2021-02-02] MEDS: CALCIUM 600MG + VIT D 400 IU TAB PO SCH (11:59)
== END 2021-02-02 12:22 | disposition home health service (06) | DRG 193 ==
LOC: ED 13:31 → SUATTDRO 15:32 → EDINP 15:32 → 2W 01-27 14:05

== ENCOUNTER 2021-03-26 06:35 | Inpatient (IN) ==
[2021-03-26] MEDS ORDERED: ALBUT/IPRATROP 3MG/0.5MG NEB 3 ML VIAL NEB STA ×2 (07:07→07:10)
--- NOTE | 2021-03-26 07:19 | Emergency Department Note ---
History of Present Illness General Chief complaint: Shortness of Breath/Dyspnea Stated complaint: TROUBLE BREATHING Time Seen by Provider: 03/26/21 06:58 History of Present Illness Maximum Pain Intensity: 0 This is an 85-year-old female with a complex past medical history that presents to the emergency department via EMS with complaints of "trouble breathing". Patient has a history of recent pneumonia and also hospitalization for COPD exacerbation. She is currently not on antibiotics. She notes over the past few days she has had an increasing cough beyond her chronic baseline. It is mildly productive with a yellowish-green sputum. With the cough she notes chest pain but not at rest. She also notes shortness of breath. No fevers or chills. She used a DuoNeb at her residence and also in route here with EMS with some minimal relief. She notes a chronic oxygen use at home of 1.5 L. Patient does note with her cough a large amount of wheezing which was more pronounced last night. Home Medications Medication Instructions Recorded Confirmed Type amlodipine 10 mg tablet (Norvasc) 10 mg PO QAM 11/28/17 03/26/21 History docusate sodium 100 mg capsule 100 mg PO BID PRN cap 11/28/17 03/26/21 History (Colace) gabapentin 300 mg capsule 300 mg PO BIDM 11/28/17 03/26/21 History montelukast 10 mg tablet 10 mg PO HS 11/28/17 03/26/21 History (Singulair) aspirin 81 mg tablet,delayed 81 mg PO BID 06/16/18 03/26/21 History release duloxetine 60 mg capsule,delayed 60 mg PO QAM 06/16/18 03/26/21 History release (Cymbalta) furosemide 20 mg tablet 20 mg PO QAM 12/26/18 03/26/21 History isosorbide mononitrate 60 mg 60 mg PO QAM 12/26/18 03/26/21 History tablet,extended release 24 hr melatonin 5 mg tablet 10 mg PO HS tab 12/26/18 03/26/21 History nitroglycerin 0.4 mg sublingual 0.4 mg SL Q5M PRN 12/26/18 03/26/21 History tablet tramadol 50 mg tablet 50 mg PO BIDM 12/26/18 03/26/21 History acetaminophen 500 mg tablet 500 mg PO BID 09/16/19 03/26/21 History cetirizine 10 mg tablet 10 mg PO QDL 09/16/19 03/26/21 History metoprolol tartrate 50 mg tablet 50 mg PO BIDM 09/16/19 03/26/21 History atorvastatin 40 mg tablet 40 mg PO HS 12/23/19 03/26/21 History losartan 50 mg tablet 50 mg PO QAM 12/23/19 03/26/21 History vohcwrvegduv-izysstaa-satued 1 tab PO QAM 12/23/19 03/26/21 History tablet (Cerovite Senior) omeprazole 40 mg capsule,delayed 40 mg PO DAILYBB 12/23/19 03/26/21 History release calcium carbonate 500 mg-vitamin 1 tab PO QDL 10/14/20 03/26/21 History D3 5 mcg (200 unit) tablet (Oyster Shell Calcium-Vitamin D3) metformin 500 mg tablet 1,000 mg PO QAM 10/14/20 03/26/21 History vitamin B complex-folic acid 0.4 1 tab PO .DAILY AT NOON 10/14/20 03/26/21 History mg tablet (Balance B-50 (with folic acid)) albuterol sulfate 90 mcg/actuation 2 puff INHALATION QID PRN 03/26/21 03/26/21 History aerosol inhaler fluticasone 250 mcg-salmeterol 50 2 inh INHALATION BID 03/26/21 03/26/21 History mcg/dose blistr powdr for inhalation (Advair Diskus) ipratropium 0.5 mg-albuterol 3 mg 3 ml INHALATION QID PRN 03/26/21 03/26/21 History (2.5 mg base)/3 mL nebulization soln menthol 0.44 %-zinc oxide 20.6 % 1 applic TOPICAL QID PRN 03/26/21 03/26/21 History topical ointment (Calmoseptine) polyethylene glycol 3350 17 gram 17 g PO DAILY 03/26/21 03/26/21 History oral powder packet (Miralax) Allergies Allergy/AdvReac Type Severity Reaction Status Date / Time azelastine Allergy Intermediate elevated bp Verified 03/26/21 08:02 trospium Allergy Intermediate hives Verified 03/26/21 08:02 azithromycin Allergy Mild Rash Verified 03/26/21 08:02 citalopram Allergy Unknown UNKNOWN Verified 03/26/21 08:02 chlorpheniramine AdvReac Intermediate ELEVATED BP Verified 03/26/21 08:02 Corticosteroids AdvReac Intermediate ELEVATED BP Verified 03/26/21 08:02 (Glucocorticoids) fexofenadine AdvReac Intermediate ELEVATED BP Verified 03/26/21 08:02 fluticasone AdvReac Intermediate ELEVATED BP Verified 03/26/21 08:02 hydrocodone AdvReac Intermediate ELEVATED BP Verified 03/26/21 08:02 magnesium salicylate AdvReac Intermediate ELEVATED BP Verified 03/26/21 08:02 salicylates AdvReac Intermediate ELEVATED BP Verified 03/26/21 08:02 Past Med/Surg History Medical History Ambulatory dysfunction Anxiety Anxiety (02/04/11) Arteriosclerotic coronary artery disease (02/04/11) Arthritis Asthma Carotid stenosis Cerebrovascular disease Chronic diastolic heart failure Degenerative disc disease Diabetic neuropathy Diverticulosis (02/04/11) GERD (gastroesophageal reflux disease) Hyperlipidemia Hypertension Morbid obesity with BMI of 45.0-49.9, adult (02/04/11) Myocardial Infarction OVER 10 YEARS AGO Peripheral edema Pneumonia Pressure sore ON COCCYX (FROM SITTING) Restless leg syndrome Unsteady gait when walking Urinary incontinence Venous insufficiency Surgical History History of anesthesia reaction SLOW TO WAKE UP History of cataract surgery History of colonoscopy History of esophagogastroduodenoscopy (EGD) History of heart artery stent OVER 10 YEARS AGO/1 STENT (FOLLOWS DR. 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 Beliefs That Will Affect Care: None marital status: Single marital status details: [email or web address] Current Living Situation: Personal Care Facility Current Living Situation Comment: [facility] current occupational status: retired How many Children do You have: 2 Feels Safe at Home: Yes Assistive Devices: Glasses and Walker Review of Systems A total of 10 systems reviewed and were otherwise negative Physical Exam Vital Signs Vital Signs - 24 hr 03/26/21 06:35 03/26/21 06:48 03/26/21 07:04 Temperature 36.5 C Temperature Source Oral Pulse Rate 93 H Pulse Rate [Apical] Respiratory Rate 26 H Respiratory Effort / Characteristics Blood Pressure 175/71 H Blood Pressure [Right Arm] Blood Pressure Mean 105 Blood Pressure Mean [Right Arm] Pulse Oximetry 91 91 Oxygen Delivery Method Nasal Cannula Nasal Cannula Nasal Cannula Oxygen Flow Rate 2 2 Sepsis Recent Fever Within 48 Hours No Sepsis New/Unexplained Change in Mental Status No Sepsis Action Taken by Nursing No Action Required 03/26/21 07:33 03/26/21 08:21 03/26/21 09:15 Temperature Temperature Source Pulse Rate Pulse Rate [Apical] 98 H 90 93 H Respiratory Rate 25 H 30 H 27 H Respiratory Effort / Characteristics Spontaneous Blood Pressure Blood Pressure [Right Arm] 170/65 H 178/76 H Blood Pressure Mean Blood Pressure Mean [Right Arm] 100 110 Pulse Oximetry 90 93 95 Oxygen Delivery Method Nasal Cannula Nasal Cannula Nebulizer Oxygen Flow Rate 5 5 Sepsis Recent Fever Within 48 Hours Sepsis New/Unexplained Change in Mental Status Sepsis Action Taken by Nursing VITAL SIGNS - Vital signs and nursing notes were reviewed. Patient is hypoxic 88% on 3 L of oxygen. GENERAL - 85-year-old female appearing her stated age who is in no acute distress. Communicates well with provider and answers questions appropriately. Cough noted. SKIN - Without rashes. No meningeal or petechial rash. HEAD - NC/AT. EYES - PERRL with EOMI bilaterally. Sclera anicteric. EARS - No deformities of external NOSE - Midline and without cyanosis. No epistaxis or purulent drainage noted. MOUTH/OROPHARYNX - Without perioral cyanosis. NECK - Neck with FROM. No nuchal rigidity. LUNGS - Chest wall symmetric without accessory muscle use, intercostals retractions, or central cyanosis. Mild wheezing bilaterally. No increased work of breathing noted to exam. CARDIAC - RRR EXTREMITIES - No clubbing or peripheral cyanosis. No pretibial edema present. +5/5 strength noted in UE/LE bilaterally. NEUROLOGIC - Cranial nerves II through XII grossly intact. PSYCH - A&O, and cooperates fully with examiner. Pt is very pleasant and interacts well with examiner. Course Administered Medications Discontinued Medications Albuterol (Albut/Ipratrop 3mg/0.5mg Neb 3 Ml Vial) 3 ml NEB NOW STA; Protocol Stop: 03/26/21 07:08 Last Admin: 03/26/21 08:12 Dose: Not Given Documented by: [id number] Albuterol (Albut/Ipratrop 3mg/0.5mg Neb 3 Ml Vial) 12 ml NEB NOW STA; Protocol Stop: 03/26/21 07:11 Last Admin: 03/26/21 08:19 Dose: 12 ml Documented by: [id number] Methylprednisolone (Methylprednisolone 125 Mg/2 Ml Vial) 60 mg IV NOW STA Stop: 03/26/21 08:37 Last Admin: 03/26/21 09:13 Dose: 60 mg Documented by: [id number] Medical Decision Making Laboratory Data Result diagrams: 03/26/21 07:30 03/26/21 07:30 Lab Results 03/26/21 03/26/21 03/26/21 Range/Units 07:30 07:30 07:30 WBC 8.17 (4.8-10.8) K/uL RBC 3.56 L (4.2-5.4) M/uL Hgb 9.9 L (12.0-16.0) g/dL Hct 32.7 L (37-47) % MCV 91.9 (80-100) fL MCH 27.8 (25-34) pg MCHC 30.3 L (32-36) g/dL RDW Std Deviation 54.1 H (36.4-46.3) fL RDW Coeff of Rakesh 16.2 H (11.5-14.5) % Plt Count 156 (130-400) K/uL MPV 10.5 H (7.4-10.4) fL Immature Gran % (Auto) 0.2 % Neut % (Auto) 59.9 % Lymph % (Auto) 23.3 % Ramsey % (Auto) 13.2 % Eos % (Auto) 3.2 % Baso % (Auto) 0.2 % Neut # (Auto) 4.89 (1.4-6.5) K/uL Lymph # (Auto) 1.90 (1.2-3.4) K/uL Ramsey # (Auto) 1.08 H (0.11-0.59) K/uL Eos # (Auto) 0.26 (0-0.5) K/uL Baso # (Auto) 0.02 (0-0.2) K/uL Immature Gran # (Auto) 0.02 (0.00-0.02) K/uL APTT 26.3 (21.0-31.0) Seconds PTT Ratio 1.0 Sodium 139 (136-145) mmol/L Potassium 4.8 (3.5-5.1) mmol/L Chloride 102 (98-107) mmol/L Carbon Dioxide 33 H (21-32) mmol/L Anion Gap 4 (3-11) BUN 20 (6-23) mg/dl Creatinine 0.99 (0.6-1.2) mg/dl Est Cr Clr Drug Dosing 46.3 ml/min Est GFR ( Amer) 61.1 ml/min Est GFR (Non-Af Amer) 52.7 ml/min BUN/Creatinine Ratio 20.2 H (10-20) Glucose 150 H (70-99(Fasting)) mg/dl Lactate (0.4-2.0) mmol/L Calcium 8.9 (8.5-10.1) mg/dl Magnesium 1.5 L (1.7-2.4) mg/dl Total Bilirubin 0.4 (0.2-1.0) mg/dl AST 25 (13-39) U/L ALT 16 (7-52) U/L Alkaline Phosphatase 63 (34-104) U/L Troponin I < 0.03 (0-0.04) ng/ml B-Natriuretic Peptide (0-100) pg/ml Total Protein 7.0 (6.0-8.3) gm/dl Albumin 3.2 L (3.4-5.0) gm/dl Globulin 3.8 (2.5-4.0) gm/dl Albumin/Globulin Ratio 0.8 L (0.9-2) Procalcitonin (0-0.5) ng/ml TSH (0.300-4.500) uIu/ml SARS-CoV-2 (PCR) (Negative) Influenza Type A (PCR) (Neg) Influenza Type B (PCR) (Neg) RSV (RT-PCR) (Neg) 03/26/21 03/26/21 03/26/21 Range/Units 07:30 07:30 07:30 WBC (4.8-10.8) K/uL RBC (4.2-5.4) M/uL Hgb (12.0-16.0) g/dL Hct (37-47) % MCV (80-100) fL MCH (25-34) pg MCHC (32-36) g/dL RDW Std Deviation (36.4-46.3) fL RDW Coeff of Rakesh (11.5-14.5) % Plt Count (130-400) K/uL MPV (7.4-10.4) fL Immature Gran % (Auto) % Neut % (Auto) % Lymph % (Auto) % Ramsey % (Auto) % Eos % (Auto) % Baso % (Auto) % Neut # (Auto) (1.4-6.5) K/uL Lymph # (Auto) (1.2-3.4) K/uL Ramsey # (Auto) (0.11-0.59) K/uL Eos # (Auto) (0-0.5) K/uL Baso # (Auto) (0-0.2) K/uL Immature Gran # (Auto) (0.00-0.02) K/uL APTT (21.0-31.0) Seconds PTT Ratio Sodium (136-145) mmol/L Potassium (3.5-5.1) mmol/L Chloride (98-107) mmol/L Carbon Dioxide (21-32) mmol/L Anion Gap (3-11) BUN (6-23) mg/dl Creatinine (0.6-1.2) mg/dl Est Cr Clr Drug Dosing ml/min Est GFR ( Amer) ml/min Est GFR (Non-Af Amer) ml/min BUN/Creatinine Ratio (10-20) Glucose (70-99(Fasting)) mg/dl Lactate 1.1 (0.4-2.0) mmol/L Calcium (8.5-10.1) mg/dl Magnesium (1.7-2.4) mg/dl Total Bilirubin (0.2-1.0) mg/dl AST (13-39) U/L ALT (7-52) U/L Alkaline Phosphatase (34-104) U/L Troponin I (0-0.04) ng/ml B-Natriuretic Peptide 102 H (0-100) pg/ml Total Protein (6.0-8.3) gm/dl Albumin (3.4-5.0) gm/dl Globulin (2.5-4.0) gm/dl Albumin/Globulin Ratio (0.9-2) Procalcitonin (0-0.5) ng/ml TSH (0.300-4.500) uIu/ml SARS-CoV-2 (PCR) NEGATIVE (Negative) Influenza Type A (PCR) Negative (Neg) Influenza Type B (PCR) Negative (Neg) RSV (RT-PCR) Negative (Neg) 03/26/21 03/26/21 Range/Units 08:02 08:02 WBC (4.8-10.8) K/uL RBC (4.2-5.4) M/uL Hgb (12.0-16.0) g/dL Hct (37-47) % MCV (80-100) fL MCH (25-34) pg MCHC (32-36) g/dL RDW Std Deviation (36.4-46.3) fL RDW Coeff of Rakesh (11.5-14.5) % Plt Count (130-400) K/uL MPV (7.4-10.4) fL Immature Gran % (Auto) % Neut % (Auto) % Lymph % (Auto) % Ramsey % (Auto) % Eos % (Auto) % Baso % (Auto) % Neut # (Auto) (1.4-6.5) K/uL Lymph # (Auto) (1.2-3.4) K/uL Ramsey # (Auto) (0.11-0.59) K/uL Eos # (Auto) (0-0.5) K/uL Baso # (Auto) (0-0.2) K/uL Immature Gran # (Auto) (0.00-0.02) K/uL APTT (21.0-31.0) Seconds PTT Ratio Sodium (136-145) mmol/L Potassium (3.5-5.1) mmol/L Chloride (98-107) mmol/L Carbon Dioxide (21-32) mmol/L Anion Gap (3-11) BUN (6-23) mg/dl Creatinine (0.6-1.2) mg/dl Est Cr Clr Drug Dosing ml/min Est GFR ( Amer) ml/min Est GFR (Non-Af Amer) ml/min BUN/Creatinine Ratio (10-20) Glucose (70-99(Fasting)) mg/dl Lactate (0.4-2.0) mmol/L Calcium (8.5-10.1) mg/dl Magnesium (1.7-2.4) mg/dl Total Bilirubin (0.2-1.0) mg/dl AST (13-39) U/L ALT (7-52) U/L Alkaline Phosphatase (34-104) U/L Troponin I (0-0.04) ng/ml B-Natriuretic Peptide (0-100) pg/ml Total Protein (6.0-8.3) gm/dl Albumin (3.4-5.0) gm/dl Globulin (2.5-4.0) gm/dl Albumin/Globulin Ratio (0.9-2) Procalcitonin 0.08 (0-0.5) ng/ml TSH 1.397 (0.300-4.500) uIu/ml SARS-CoV-2 (PCR) (Negative) Influenza Type A (PCR) (Neg) Influenza Type B (PCR) (Neg) RSV (RT-PCR) (Neg) Imaging Data Radiologist's Impression: Chest X-Ray 03/26/21 07:04 XR chest 1V portable CLINICAL HISTORY: cough, hypoxia. Nonsmoker COMPARISON STUDY: 10/21/2020 TECHNIQUE: 1 view of the chest FINDINGS: Single frontal view of the chest demonstrates the cardiomediastinal silhouette to be within normal limits. There is a decreased inspiratory effort with elevation of the hemidiaphragms and crowding of the bronchovascular markings at the lung bases and centrally. The lungs are clear of alveolar opacities. There is no evidence for pleural effusion. There is no evidence for vascular congestion. There is no acute osseous pathology. IMPRESSION: There is a decreased inspiratory effort with otherwise no acute chest disease. ACT 112: Negative or not required by law. Electronically signed by: Sebastian Salmeron M.D. 03/26/2021 7:50 AM MDM Narrative Patient was seen and evaluated as above in room C10. Review was performed of nursing notes and vital signs. I did review pertinent previous visits and patient history. After obtaining a thorough history and physical examination the above work up was performed. Patient presents to us today via ambulance for evaluation of respiratory issues. The patient does note that she has a cough and increased shortness of breath that over the past few days has worsened. Per review of the chart it appears that she was recently admitted for acute exacerbation of COPD. Patient was not aware of a history of COPD until review of previous record. The patient at the present time feels short of breath. She tried a DuoNeb at home and also via EMS here today and notes minimal impro vement. She denies any chest pain at the present time. Cough is productive of some greenish-yellow sputum. She noted wheezing yesterday. I did increase the patient's O2 here as she was hypoxic at 88% on 3 L. With the increase of oxygen to 5 L the patient was resting comfortably and the cough seemed to improve. Patient does not appear to be fluid overloaded. Options of care were discussed with the patient. IV access was established. Labs were drawn. Chest x-ray was obtained. This appears to not reveal any pneumonia compared to previous. She is not febrile. Labs reveal no leukocytosi s. Anemia is similar to previous with hemoglobin at 9.9. No emergent metabolic disturbance. Mild hypomagnesemia at 1.5. Troponin negative. BNP 102. Pro-Thai within normal range. TSH reveals euthyroid state. COVID influenza testing are negative. Patient was medicated here with DuoNeb and IV Solu-Medrol. Although I will note the patient does have an allergy listed to glucocorticoids causing hypertension it is felt that a one-time dose here is reasonable and the benefit outweighs the risk. With the patient's presentation, increased oxygen requirement I do believe that further evaluation and management in the inpatient setting is warranted. Low suspicion for PE at this time. Low suspicion for ACS, PE, dissection. Will note that the patient had no findings to suggest PE or dissection on the CTA performed 10-21-2020 and also subsequently had a CT scan of the chest on 01-26-2021. EKG reveals sinus rhythm at a rate of 92 bpm. QTc 568. QRS 124. Poor baseline artifact in V4, V5 with some mild artifact in V6. Otherwise remainder of the tracing reveals no ischemic change. Case discussed with the hospitalist. Please refer to further documentation regarding her stay. Case was discussed with the attending physician. An order was placed for continuous cardiac monitoring. The monitor shows a rate of 93 with sinus rhythm. I attest that I have personally reviewed the patient medication list. GCS: 15 IMPRESSION: Chest Pain In the evaluation and treatment of this patient, the following differential diagnoses were considered: RI, ASC, Dysrhythmia, Angina, Mediastinitis, GERD, Esophagitis, PE, Pneumonia, Bronchitis, Costochondritis, COPD exacerbation, COVID-19, rib Fracture, dissection, among others. Impression & Plan Hypoxia, Cough, Hypomagnesemia Discharge Plan Visit Data Chief Complaint: Shortness of Breath/Dyspnea Stated Complaint: TROUBLE BREATHING ED Provider: [facility] ED Midlevel Provider: Alon Andrea Discharge Problem: Hypoxia, Cough, Hypomagnesemia Patient Disposition: Admitted As Inpatient Condition: Good Forms Stand Alone Forms: My [facility] Prescriptions Prescriptions: No Action amlodipine [Norvasc] 10 mg tablet 10 mg PO QAM RF: 0 docusate sodium [Colace] 100 mg capsule 100 mg PO BID PRN (Reason: Constipation) RF: 0 gabapentin 300 mg capsule 300 mg PO BIDM RF: 0 montelukast [Singulair] 10 mg tablet 10 mg PO HS RF: 0 isosorbide mononitrate 60 mg tablet extended release 24 hr 60 mg PO QAM RF: 0 furosemide 20 mg tablet 20 mg PO QAM RF: 0 tramadol 50 mg tablet 50 mg PO BIDM RF: 0 nitroglycerin 0.4 mg tablet, sublingual 0.4 mg SL Q5M PRN (Reason: Chest Pain) RF: 0 aspirin 81 mg Tablet,Delayed Release (Dr/Ec) 81 mg PO BID RF: 0 duloxetine [Cymbalta] 60 mg capsule,delayed release(DR/EC) 60 mg PO QAM RF: 0 melatonin 5 mg tablet 10 mg PO HS RF: 0 cetirizine 10 mg Tablet 10 mg PO QDL RF: 0 acetaminophen 500 mg tablet 500 mg PO BID RF: 0 metoprolol tartrate 50 mg tablet 50 mg PO BIDM RF: 0 losartan 50 mg Tablet 50 mg PO QAM RF: 0 atorvastatin 40 mg Tablet 40 mg PO HS RF: 0 omeprazole 40 mg Capsule,Delayed Release(Dr/Ec) 40 mg PO DAILYBB RF: 0 Cerovite Senior Tablet 1 tab PO QAM RF: 0 metformin 500 mg tablet 1,000 mg PO QAM RF: 0 vitamin B complex-folic acid [Balance B-50 (with folic acid)] 0.4 mg tablet 1 tab PO .DAILY AT NOON RF: 0 calcium carbonate-vitamin D3 [Oyster Shell Calcium-Vit D3] 500 mg(1,250mg) - 200 unit tablet 1 tab PO QDL RF: 0 fluticasone propion-salmeterol [Advair Diskus] 250-50 mcg/dose blister with device 2 inh INHALATION BID RF: 0 ipratropium-albuterol 0.5 mg-3 mg(2.5 mg base)/3 mL solution for nebulization 3 ml INHALATION QID PRN (Reason: Congestion) RF: 0 polyethylene glycol 3350 [Miralax] 17 gram Powder In Packet 17 g PO DAILY RF: 0 albuterol sulfate 90 mcg/actuation Hfa Aerosol Inhaler 2 puff INHALATION QID PRN (Reason: Shortness Of Breath) RF: 0 menthol-zinc oxide [Calmoseptine] 0.44-20.6 % Ointment 1 applic TOPICAL QID PRN (Reason: redness) RF: 0 Referrals Referrals: Garcia Lira [Primary Care Provider] -
[2021-03-26 07:48] LABS: Basophils # (auto) 0.02 K/uL (0-0.2); Basophils % (auto) 0.2 %; Eosinophils # (auto) 0.26 K/uL (0-0.5); Eosinophils % (auto) 3.2 %; Hematocrit (blood only) 32.7 % (37-47); Hemoglobin 9.9 g/dL (12.0-16.0); Immature Granulocytes # (auto) 0.02 K/uL (0.00-0.02); Immature Granulocytes % (auto) 0.2 %; Lymphocytes % (auto) 23.3 %; Mean Corpuscular Hemoglobin 27.8 pg (25-34); Mean Corpuscular Hgb Conc 30.3 g/dL (32-36); Mean Corpuscular Volume 91.9 fL (80-100); Mean Platelet Volume 10.5 fL (7.4-10.4); Monocytes # (auto) 1.08 K/uL (0.11-0.59); Monocytes % (auto) 13.2 %; Neutrophils # (auto) 4.89 K/uL (1.4-6.5); Neutrophils % (auto) 59.9 %; Platelet Count 156 K/uL (130-400); RDW Coefficient of Variation 16.2 % (11.5-14.5); RDW Standard Deviation 54.1 fL (36.4-46.3); Red Blood Count 3.56 M/uL (4.2-5.4); White Blood Count 8.17 K/uL (4.8-10.8)
--- NOTE | 2021-03-26 07:51 | XRay Report ---
XR chest 1V portable CLINICAL HISTORY: cough, hypoxia. Nonsmoker COMPARISON STUDY: 10/21/2020 TECHNIQUE: 1 view of the chest FINDINGS: Single frontal view of the chest demonstrates the cardiomediastinal silhouette to be within normal li mits. There is a decreased inspiratory effort with elevation of the hemidiaphragms and crowding of th e bronchovascular markings at the lung bases and centrally. The lungs are clear of alveolar opacities . There is no evidence for pleural effusion. There is no evidence for vascular congestion. There is n o acute osseous pathology. IMPRESSION: There is a decreased inspiratory effort with otherwise no acute chest disease. ACT 112: Negative or not required by law. Electronically signed by: Sebastian Salmeron M.D. 03/26/2021 7:50 AM
[2021-03-26 08:12] LABS: Troponin I < 0.03 ng/ml (0-0.04)
[2021-03-26 08:26] LABS: Alanine Aminotransferase 16 U/L (7-52); Albumin Globulin Ratio 0.8 (0.9-2); Albumin Level 3.2 gm/dl (3.4-5.0); Alkaline Phosphatase 63 U/L (34-104); Anion Gap 4 (3-11); Aspartate Aminotransferase 25 U/L (13-39); BUN Creatinine Ratio 20.2 (10-20); Bilirubin,Total 0.4 mg/dl (0.2-1.0); Blood Urea Nitrogen 20 mg/dl (6-23); Calcium 8.9 mg/dl (8.5-10.1); Carbon Dioxide 33 mmol/L (21-32); Chloride 102 mmol/L (98-107); Creatinine Clr Calc Pharmacy 46.3 ml/min; Est GFR (African American) 61.1 ml/min; Est GFR (Non-African American) 52.7 ml/min; Globulin 3.8 gm/dl (2.5-4.0); Glucose 150 mg/dl (70-99(Fasting)); Magnesium 1.5 mg/dl (1.7-2.4); Potassium 4.8 mmol/L (3.5-5.1); Sodium 139 mmol/L (136-145)
[2021-03-26] MEDS ORDERED: methylPREDNISolone 125 MG/2 ML VIAL IV STA (08:36)
[2021-03-26 08:49] LABS: Influenza A virus by PCR Negative (Neg); Influenza B virus by PCR Negative (Neg); RSV by PCR Negative (Neg); SARS CoV2 RNA(COVID-19) InHosp NEGATIVE (Negative)
[2021-03-26 08:55] LABS: Partial Thromboplastin Time 26.3 Seconds (21.0-31.0)
--- NOTE | 2021-03-26 09:01 | History & Physical Report ---
Date of Service March 26, 2021 Assessment & Plan (1) Acute exacerbation of chronic obstructive pulmonary disease: (2) Asthma: (3) Acute respiratory failure with hypoxia: Plan: -Admit to med surg -COVID is negative upon admission, neg Influenza and RSV. -Given Solu-Medrol 60 mg IV in the ER, will continue with TID dosing - CXR appears clear but breath sounds are coarse, if no improvement within [address] chest -Pulmonary toilet with Mucinex, flutter, incentive spirometry, albuterol nebs QID and Q2H prn -Possible that this is residual from her last bout of pneumonia -No antibiotics at this time as she is afebrile, no white blood count -Consider sputum culture if produces, follow blood cultures - Lactate and procal negative (4) Hypomagnesemia: Plan: -Magnesium is 1.5 on admission, give 1 g IV -Trend with a.m. lab (5) Hypertension: Plan: - Bp elevated at 178/76, cont metoprolol tartrate 50 mg BID, losartan 50 mg daily, imdur, and lasix. She reports her caregiver gave her medications to her this morning. (6) Dyslipidemia: Plan: -Continue statin therapy (7) Type 2 diabetes mellitus: Plan: -ISS with Accu-Cheks ACHS, holding metformin -Last A1c 7.2 on 01/30/21, recheck with am labs (8) Diabetic peripheral neuropathy: Plan: - Cont gabapentin - PT/OT consults, pt uses a walker at home (9) GERD (gastroesophageal reflux disease): Plan: - Cont omeprazole History of Present Illness Chief Complaint: shortness of breath Primary Care Provider: [facility] This is an 85-year-old female with PMHx of Asthma/COPD, DMII, HLD, Nocturnal hypoxia, HTN, OJEDA cirrhosis, CAD, Urinary incontinence, Anxiety, Lumbar DDD, Osteoporosis. Pt was sent from [facility] as she was found to be having increased respiratory symptoms including shortness of breath with exertion, cough and occasional sputum production by her caregiver who visits her daily. She typically wears 1.5 O2 since her last admission approximately 1 week ago when she went home, however was found to be hypoxic when EMS arrived this morning and she was at 88% on 3 L. Since being in the ER here she has been p laced on 5 L and oxygen saturations are now in the low 90s. She has been given Solu-Medrol 60 mg IV x1. She was diagnosed with COPD during her last admission here however does not recall having history of such prior to that. She denies any history of ever smoking, but admits to being exposed to secondhand her whole life by her family. She denies any chest pain, chest heaviness, abdominal compl aints. She admits to intermittent constipation, denies any urinary complaints. She is currently getting a hour-long nebulizer treatment and feels slightly improved. She is a bit shakey right now. Pt notes she will call her daughter and tell her she is staying here. Allergies Allergy/AdvReac Type Severity Reaction Status Date / Time azelastine Allergy Intermediate elevated bp Verified 03/26/21 08:02 trospium Allergy Intermediate hives Verified 03/26/21 08:02 azithromycin Allergy Mild Rash Verified 03/26/21 08:02 citalopram Allergy Unknown UNKNOWN Verified 03/26/21 08:02 chlorpheniramine AdvReac Intermediate ELEVATED BP Verified 03/26/21 08:02 Corticosteroids AdvReac Intermediate ELEVATED BP Verified 03/26/21 08:02 (Glucocorticoids) fexofenadine AdvReac Intermediate ELEVATED BP Verified 03/26/21 08:02 fluticasone AdvReac Intermediate ELEVATED BP Verified 03/26/21 08:02 hydrocodone AdvReac Intermediate ELEVATED BP Verified 03/26/21 08:02 magnesium salicylate AdvReac Intermediate ELEVATED BP Verified 03/26/21 08:02 salicylates AdvReac Intermediate ELEVATED BP Verified 03/26/21 08:02 Home Medications Medication Instructions Recorded Confirmed Type amlodipine 10 mg tablet (Norvasc) 10 mg PO QAM 11/28/17 03/26/21 History docusate sodium 100 mg capsule 100 mg PO BID PRN cap 11/28/17 03/26/21 History (Colace) gabapentin 300 mg capsule 300 mg PO BIDM 11/28/17 03/26/21 History montelukast 10 mg tablet 10 mg PO HS 11/28/17 03/26/21 History (Singulair) aspirin 81 mg tablet,delayed 81 mg PO BID 06/16/18 03/26/21 History release duloxetine 60 mg capsule,delayed 60 mg PO QAM 06/16/18 03/26/21 History release (Cymbalta) furosemide 20 mg tablet 20 mg PO QAM 12/26/18 03/26/21 History isosorbide mononitrate 60 mg 60 mg PO QAM 12/26/18 03/26/21 History tablet,extended release 24 hr melatonin 5 mg tablet 10 mg PO HS tab 12/26/18 03/26/21 History nitroglycerin 0.4 mg sublingual 0.4 mg SL Q5M PRN 12/26/18 03/26/21 History tablet tramadol 50 mg tablet 50 mg PO BIDM 12/26/18 03/26/21 History acetaminophen 500 mg tablet 500 mg PO BID 09/16/19 03/26/21 History cetirizine 10 mg tablet 10 mg PO QDL 09/16/19 03/26/21 History metoprolol tartrate 50 mg tablet 50 mg PO BIDM 09/16/19 03/26/21 History atorvastatin 40 mg tablet 40 mg PO HS 12/23/19 03/26/21 History losartan 50 mg tablet 50 mg PO QAM 12/23/19 03/26/21 History cmhnqgsageat-iibkqfiz-itccxe 1 tab PO QAM 12/23/19 03/26/21 History tablet (Cerovite Senior) omeprazole 40 mg capsule,delayed 40 mg PO DAILYBB 12/23/19 03/26/21 History release calcium carbonate 500 mg-vitamin 1 tab PO QDL 10/14/20 03/26/21 History D3 5 mcg (200 unit) tablet (Oyster Shell Calcium-Vitamin D3) metformin 500 mg tablet 1,000 mg PO QAM 10/14/20 03/26/21 History vitamin B complex-folic acid 0.4 1 tab PO .DAILY AT NOON 10/14/20 03/26/21 History mg tablet (Balance B-50 (with folic acid)) albuterol sulfate 90 mcg/actuation 2 puff INHALATION QID PRN 03/26/21 03/26/21 History aerosol inhaler fluticasone 250 mcg-salmeterol 50 2 inh INHALATION BID 03/26/21 03/26/21 History mcg/dose blistr powdr for inhalation (Advair Diskus) ipratropium 0.5 mg-albuterol 3 mg 3 ml INHALATION QID PRN 03/26/21 03/26/21 History (2.5 mg base)/3 mL nebulization soln menthol 0.44 %-zinc oxide 20.6 % 1 applic TOPICAL QID PRN 03/26/21 03/26/21 History topical ointment (Calmoseptine) polyethylene glycol 3350 17 gram 17 g PO DAILY 03/26/21 03/26/21 History oral powder packet (Miralax) tramadol 50 mg tablet 50 mg PO BID 03/26/21 03/26/21 History Past Med/Surg History Medical History (Updated 03/26/21 @ 10:14 by Arleen Jorge PA-C) Ambulatory dysfunction Anxiety Anxiety (02/04/11) Arteriosclerotic coronary artery disease (02/04/11) Arthritis Asthma Carotid stenosis Cerebrovascular disease Chronic diastolic heart failure Degenerative disc disease Diabetic neuropathy Diverticulosis (02/04/11) GERD (gastroesophageal reflux disease) Hyperlipidemia Hypertension Morbid obesity with BMI of 45.0-49.9, adult (02/04/11) Myocardial Infarction OVER 10 YEARS AGO Peripheral edema Pneumonia Pressure sore ON COCCYX (FROM SITTING) Restless leg syndrome Unsteady gait when walking Urinary incontinence Venous insufficiency Surgical History History of anesthesia reaction SLOW TO WAKE UP History of cataract surgery History of colonoscopy History of esophagogastroduodenoscopy (EGD) History of heart artery stent OVER 10 YEARS AGO/1 STENT (FOLLOWS DR. NARAYANAN) History of tooth extraction Hx laparoscopic cholecystectomy Hx of tubal ligation Family History Other Adopted Cancer Social History Smoking Status: Never smoker Second Hand Exposure: No; Hx Alcohol Use: No Hx Substance Use: No Preferred Language: Luxembourgish Communication Ability: Effective Cyber Policy And Strategy Planner Required: No Beliefs That Will Affect Care: None marital status: Single marital status details: [email or web address] Current Living Situation: Personal Care Facility Current Living Situation Comment: [facility] current occupational status: retired How many Children do You have: 2 Feels Safe at Home: Yes Assistive Devices: Denture - Lower, Glasses, Oxygen - Continuous and Walker Review of Systems Review of Systems: Constitutional: No fever, sweats or chills Eyes: No diplopia, no worsening or blurred vision ENT: normal hearing, no trouble swallowing Respiratory: + cough, + occasional green/yellow sputum, no dyspnea at rest, +dyspnea on exertion Cardiovascular: No chest pain, tightness or palpitations Abdomen: No pain, nausea, vomiting, diarrhea or constipation Musculoskeletal: No joint pain, calf pain, swelling Neurologic: No weakness, numbness/tingling, or balance problems Psychiatric: No anxiety or depression Skin: No rash or itch Physical Exam Physical Exam: General: awake, alert, no apparent distress Head: Normocephalic, atraumatic ENT: PERRL, EOMI, no pharyngeal exudate, mucous membranes moist Chest: Coarse breath sounds throughout with rales, on 5L via nebulizer Cardiac: Regular rate and rhythm, no murmur, no JVD, normal peripheral pulses, good capillary refill Abdominal: NABS x 4 quadrants, soft, nondistended, nontender to palpation, no rebound or guarding Extremities: Normal inspection, no peripheral edema or erythema, calfs nontender to palpation Psych: Normal mood and affect Neuro: AAO x 3, strength intact bilaterally and rated 5/5, no motor deficits, speech is clear, no peripheral sensory deficits Results & Data Results & Data ([facility]) Vital Signs (Past 12 Hours) Vital Signs Temp Pulse Pulse Resp BP BP Pulse Ox 03/26/21 08:21 90 30 H 93 03/26/21 07:33 98 H 25 H 170/65 H 90 03/26/21 06:48 91 03/26/21 06:35 36.5 C 93 H 26 H 175/71 H 91 Laboratory Results 03/26/21 08:02 Aerobic Blood Culture - Pending Blood Anaerobic Blood Culture - Pending 03/26/21 07:30 Aerobic Blood Culture - Pending Blood Anaerobic Blood Culture - Pending 03/26/21 03/26/21 03/26/21 08:02 08:02 07:30 WBC RBC Hgb Hct MCV MCH MCHC RDW Std Deviation RDW Coeff of Rakesh Plt Count MPV Immature Gran % (Auto) Neut % (Auto) Lymph % (Auto) Moca % (Auto) Eos % (Auto) Baso % (Auto) Neut # (Auto) Lymph # (Auto) Moca # (Auto) Eos # (Auto) Baso # (Auto) Immature Gran # (Auto) APTT PTT Ratio Sodium Potassium Chloride Carbon Dioxide Anion Gap BUN Creatinine Est Cr Clr Drug Dosing Est GFR ( Amer) Est GFR (Non-Af Amer) BUN/Creatinine Ratio Glucose Lactate Calcium Magnesium Total Bilirubin AST ALT Alkaline Phosphatase Troponin I B-Natriuretic Peptide Total Protein Albumin Globulin Albumin/Globulin Ratio Procalcitonin 0.08 TSH 1.397 SARS-CoV-2 (PCR) NEGATIVE Influenza Type A (PCR) Negative Influenza Type B (PCR) Negative RSV (RT-PCR) Negative 03/26/21 03/26/21 03/26/21 07:30 07:30 07:30 WBC RBC Hgb Hct MCV MCH MCHC RDW Std Deviation RDW Coeff of Rakesh Plt Count MPV Immature Gran % (Auto) Neut % (Auto) Lymph % (Auto) Moca % (Auto) Eos % (Auto) Baso % (Auto) Neut # (Auto) Lymph # (Auto) Moca # (Auto) Eos # (Auto) Baso # (Auto) Immature Gran # (Auto) APTT PTT Ratio Sodium 139 Potassium 4.8 Chloride 102 Carbon Dioxide 33 H Anion Gap 4 BUN 20 Creatinine 0.99 Est Cr Clr Drug Dosing 46.3 Est GFR ( Amer) 61.1 Est GFR (Non-Af Amer) 52.7 BUN/Creatinine Ratio 20.2 H Glucose 150 H Lactate 1.1 Calcium 8.9 Magnesium 1.5 L Total Bilirubin 0.4 AST 25 ALT 16 Alkaline Phosphatase 63 Troponin I < 0.03 B-Natriuretic Peptide 102 H Total Protein 7.0 Albumin 3.2 L Globulin 3.8 Albumin/Globulin Ratio 0.8 L Procalcitonin TSH SARS-CoV-2 (PCR) Influenza Type A (PCR) Influenza Type B (PCR) RSV (RT-PCR) 03/26/21 03/26/21 07:30 07:30 WBC 8.17 RBC 3.56 L Hgb 9.9 L Hct 32.7 L MCV 91.9 MCH 27.8 MCHC 30.3 L RDW Std Deviation 54.1 H RDW Coeff of Rakesh 16.2 H Plt Count 156 MPV 10.5 H Immature Gran % (Auto) 0.2 Neut % (Auto) 59.9 Lymph % (Auto) 23.3 Moca % (Auto) 13.2 Eos % (Auto) 3.2 Baso % (Auto) 0.2 Neut # (Auto) 4.89 Lymph # (Auto) 1.90 Moca # (Auto) 1.08 H Eos # (Auto) 0.26 Baso # (Auto) 0.02 Immature Gran # (Auto) 0.02 APTT 26.3 PTT Ratio 1.0 Sodium Potassium Chloride Carbon Dioxide Anion Gap BUN Creatinine Est Cr Clr Drug Dosing Est GFR ( Amer) Est GFR (Non-Af Amer) BUN/Creatinine Ratio Glucose Lactate Calcium Magnesium Total Bilirubin AST ALT Alkaline Phosphatase Troponin I B-Natriuretic Peptide Total Protein Albumin Globulin Albumin/Globulin Ratio Procalcitonin TSH SARS-CoV-2 (PCR) Influenza Type A (PCR) Influenza Type B (PCR) RSV (RT-PCR) Diagnostic Findings Chest X-Ray 03/26/21 07:04 XR chest 1V portable CLINICAL HISTORY: cough, hypoxia. Nonsmoker COMPARISON STUDY: 10/21/2020 TECHNIQUE: 1 view of the chest FINDINGS: Single frontal view of the chest demonstrates the cardiomediastinal silhouette to be within normal limits. There is a decreased inspiratory effort with elevation of the hemidiaphragms and crowding of the bronchovascular markings at the lung bases and centrally. The lungs are clear of alveolar opacities. There is no evidence for pleural effusion. There is no evidence for vascular congestion. There is no acute osseous pathology. IMPRESSION: There is a decreased inspiratory effort with otherwise no acute chest disease. ACT 112: Negative or not required by law. Electronically signed by: Sebastian Salmeron M.D. 03/26/2021 7:50 AM ECG Additional Comments: NSR, acute signs of ischemia or ST wave changes. Code Status & VTE Plan Code Status DNR.DRI - discussed with the patient at bedside Supervising Physician Co-Signing Physician Notes Attending Addendum: care coordinated with MARIANA Hilda Heredia please refer to her notes for full details, I agree with her notes patient seen and examined, records reviewed by myself as well on exam, patient seen resting in bed, comfortable on 3 L NC states she feels improved compared to admission has mild dyspnea no other symptoms VS noted and reviewed oriented x3, not in distress, speaks in sentences with no effort nor accessory muscle use normal rate, regular rhythm, no murmurs mild wheeze bilaterally non distended, soft, nontender no bipedal edema, erythema, warmth no neuro deficits labs as noted above ASSESSMENT AND PLAN COPD EXACERBATION ACUTE HYPOXIC RESPIRATORY FAILURE solumedrol, nebs, doxycycline HTN continue meds other diagnoses and plan of care as per MARIANA Heredia's notes Kris Campos MD
[2021-03-26] MEDS ORDERED: MAGNESIUM SULFATE / D5W 1 GM/100 ML BAG IV ONE (09:30)
[2021-03-26] MEDS ORDERED: ONDANSETRON INJ 2 MG/ML 2 ML VIAL IV PRN (10:20)
--- NOTE | 2021-03-26 10:25 | Emergency Department Note ---
ED Visit Note Physician Evaluation Note: I have personally evaluated and examined this patient. I agree with assessment and plan of Alon Andrea PA-C. 85-year-old female arrives for worsening shortness of breath and hypoxia. She was initially evaluated and managed by [facility]. Patient is feeling much better after nebulizer however given persistent sh ortness of breath and hypoxia will need further evaluation and hospitalization. She does recently have had a CT of the chest thus repeating this seems unnecessary at this time. Ion Pires MD
[2021-03-26] MEDS ORDERED: GLUCOSE 40% GEL 15 GM TUBE PO PRN (10:43)
[2021-03-26] MEDS ORDERED: NITROGLYCERIN SL 0.4 MG/TAB TAB SL PRN ×2 (10:43)
[2021-03-26] MEDS ORDERED: ALBUTEROL HFA 8 GM INHALER INH PRN ×2 (10:43)
[2021-03-26] MEDS ORDERED: [UNRECOGNIZED DRUG - OTHER] PO SCH (10:43)
[2021-03-26] MEDS ORDERED: VITAMIN B COMPLEX FOLIC ACID PO SCH (10:43)
[2021-03-26] MEDS ORDERED: DOCUSATE SODIUM 100 MG CAP PO PRN (10:43)
[2021-03-26] MEDS ORDERED: DEXTROSE 50% 50 ML SYRINGE IV PRN (10:43)
[2021-03-26] MEDS ORDERED: GLUCOSE 10 TABS/TUBE PO PRN (10:43)
[2021-03-26] MEDS ORDERED: ALBUT/IPRATROP 3MG/0.5MG NEB 3 ML VIAL INH PRN ×2 (10:43)
[2021-03-26] MEDS ORDERED: CARBOHYDRATES FOR HYPOGLYCEMIA PO PRN (10:43)
[2021-03-26] MEDS ORDERED: GLUCAGON FOR INJ 1 MG VIAL SQ PRN (10:43)
[2021-03-26] MEDS ORDERED: ALBUT/IPRATROP 3MG/0.5MG NEB 3 ML VIAL NEB SCH (11:00)
[2021-03-26] MEDS: guaiFENesin 600 MG TABCR PO SCH ×2 (12:36→21:05)
[2021-03-26] MEDS: CALCIUM 600MG + VIT D 400 IU TAB PO SCH (12:37)
[2021-03-26] MEDS: CETIRIZINE HCL 10 MG TABLET PO SCH (12:37)
[2021-03-26] MEDS: amLODIPine BESYLATE 5 MG TAB PO SCH (12:37)
[2021-03-26] MEDS: FUROSEMIDE 20 MG TAB PO SCH (12:37)
[2021-03-26] MEDS: ASPIRIN 81 MG ECTAB PO SCH ×2 (12:37→21:04)
[2021-03-26] MEDS: ISOSORBIDE MONO EXTENDED REL 60 MG TABCR PO SCH (12:37)
[2021-03-26] MEDS: CEROVITE ADV FORMULA TAB PO SCH (12:37)
[2021-03-26] MEDS: DULoxetine HCL 60 MG CAP PO SCH (12:37)
[2021-03-26] MEDS: LOSARTAN POTASSIUM 50 MG TAB PO SCH (12:37)
[2021-03-26] MEDS: POLYETHYLENE (MIRALAX) 17 GM PACK PO SCH (12:37)
[2021-03-26] MEDS: BENZONATATE 100 MG CAPSULE PO SCH ×3 (12:38→21:05)
[2021-03-26] MEDS: INSULIN ASPART PER UNIT SC SCH ×3 (12:39→21:59)
[2021-03-26] MEDS ORDERED: METOPROLOL TARTRATE 1 MG/ML VIAL IV STA (13:22)
[2021-03-26] MEDS ORDERED: hydrALAZINE HCL 20 MG/ML VIAL IV ONE (13:26)
[2021-03-26] MEDS: DOXYCYCLINE HYCLATE 100 MG CAP PO SCH ×2 (13:43→21:05)
[2021-03-26] MEDS: FLUTICASONE/VILANTEROL 200/25MCG 14 PUFFS/INHALER INH SCH (13:45)
[2021-03-26] MEDS: methylPREDNISolone 40 MG in SYRINGE 0 ML IV SCH ×2 (13:46→21:06)
[2021-03-26] MEDS ORDERED: BENZONATATE 100 MG CAPSULE PO SCH (14:00)
[2021-03-26] MEDS ORDERED: NYSTATIN POWDER 15GM BTL EXT PRN (15:28)
[2021-03-26] MEDS ORDERED: MECLIZINE 12.5 MG TAB PO PRN (15:58)
[2021-03-26] MEDS: GABAPENTIN 300 MG CAP PO SCH (17:56)
[2021-03-26] MEDS: METOPROLOL TARTRATE 50 MG TAB PO SCH (17:56)
[2021-03-26] MEDS: traMADol HCL 50 MG TABLET PO SCH (18:01)
[2021-03-26] MEDS ORDERED: XOPENEX/ATROVENT 1.25mg/0.5MG NEB COMBO NEB SCH (19:00)
[2021-03-26] MEDS ORDERED: LEVALBUTEROL HCL 1.25 MG/3 ML NEB NEB SCH (19:00)
[2021-03-26] MEDS ORDERED: hydrALAZINE HCL 20 MG/ML VIAL IV PRN (19:30)
[2021-03-26] MEDS: IPRATROPIUM BROMIDE NEB SOLN 0.02% 2.5 ML VIAL INH SCH (19:39)
[2021-03-26] MEDS: LEVALBUTEROL 1.25MG/0.5ML NEB INH SCH (19:39)
--- NOTE | 2021-03-26 20:58 | Ultrasound Report ---
BILATERAL LOWER EXTREMITY VENOUS DOPPLER CLINICAL HISTORY: leg edema, pain r/o DVt COMPARISON STUDY: Left lower extremity venous Doppler ultrasound May 28, 2018. TECHNIQUE: Sonography of the deep venous system of the bilateral lower extremities was performed. Co mpression and augmentation were evaluated. FINDINGS: The bilateral common femoral, superficial femoral and popliteal veins were compressible. A ugmentation was normal. Flow was shown within the deep calf vessels. IMPRESSION: No evidence of deep venous thrombus within the bilateral lower extremities. ACT 112: Negative or not required by law. Electronically signed by: Cristian Agiular M.D. 03/26/2021 8:57 PM
[2021-03-26] MEDS ORDERED: methylPREDNISolone 40 MG in SYRINGE 0 ML IV SCH (21:00)
[2021-03-26] MEDS: ATORVASTATIN 40 MG TAB PO SCH (21:04)
[2021-03-26] MEDS: MELATONIN 3 MG TAB PO SCH (21:05)
[2021-03-26] MEDS: MONTELUKAST SODIUM 10 MG TABLET PO SCH (21:05)
--- NOTE | 2021-03-26 21:23 | Electrocardiogram Report ---
Test Reason : Blood Pressure : / mmHG Vent. Rate : 092 BPM Atrial Rate : 094 BPM P-R Int : 156 ms QRS Dur : 124 ms QT Int : 348 ms P-R-T Axes : 037 016 050 degrees QTc Int : 431 ms Poor data quality, interpretation may be adversely affected Sinus rhythm Cannot rule out Anterior infarct (cited on or before 22-OCT-2020) Abnormal ECG When compared with ECG of 26-JAN-2021 13:44, QRS duration has increased Confirmed by Jeff Bernal ([id number]) on 03/26/2021 9:22:50 PM Referred By: REFERRED SELF Confirmed By:Jeff Bernal
[2021-03-27] MEDS: IPRATROPIUM BROMIDE NEB SOLN 0.02% 2.5 ML VIAL INH SCH ×4 (00:12→20:05)
[2021-03-27] MEDS: LEVALBUTEROL 1.25MG/0.5ML NEB INH SCH ×4 (00:12→20:05)
[2021-03-27 05:54] LABS: Hematocrit (blood only) 33.6 % (37-47); Hemoglobin 10.2 g/dL (12.0-16.0); Mean Corpuscular Hemoglobin 27.4 pg (25-34); Mean Corpuscular Hgb Conc 30.4 g/dL (32-36); Mean Corpuscular Volume 90.3 fL (80-100); Mean Platelet Volume 10.9 fL (7.4-10.4); Platelet Count 167 K/uL (130-400); RDW Coefficient of Variation 16.1 % (11.5-14.5); RDW Standard Deviation 53.3 fL (36.4-46.3); Red Blood Count 3.72 M/uL (4.2-5.4)
[2021-03-27] MEDS: methylPREDNISolone 40 MG in SYRINGE 0 ML IV SCH ×3 (06:04→22:34)
[2021-03-27] MEDS: PANTOprazole 40 MG TAB PO SCH (06:10)
[2021-03-27 06:18] LABS: Albumin Globulin Ratio 0.8 (0.9-2); Albumin Level 3.2 gm/dl (3.4-5.0); BUN Creatinine Ratio 25.3 (10-20); Bilirubin,Total 0.4 mg/dl (0.2-1.0); Calcium 8.8 mg/dl (8.5-10.1); Creatinine Clr Calc Pharmacy 52.6 ml/min; Est GFR (African American) 71.4 ml/min; Est GFR (Non-African American) 61.6 ml/min; Globulin 3.9 gm/dl (2.5-4.0); Magnesium 1.7 mg/dl (1.7-2.4); Potassium 4.6 mmol/L (3.5-5.1); Total Protein 7.1 gm/dl (6.0-8.3)
[2021-03-27] MEDS: METOPROLOL TARTRATE 50 MG TAB PO SCH ×2 (08:41→17:40)
[2021-03-27] MEDS: ISOSORBIDE MONO EXTENDED REL 60 MG TABCR PO SCH (08:41)
[2021-03-27] MEDS: LOSARTAN POTASSIUM 50 MG TAB PO SCH (08:41)
[2021-03-27] MEDS: amLODIPine BESYLATE 5 MG TAB PO SCH (08:42)
[2021-03-27] MEDS: INSULIN ASPART PER UNIT SC SCH ×4 (08:50→22:40)
[2021-03-27 09:04] LABS: Estimated Average Glucose 148 mg/dl; Hemoglobin A1C 6.8 % (4.5-5.6)
[2021-03-27] MEDS: ACETAMINOPHEN 325 MG TAB PO PRN ×2 (11:08→14:33)
[2021-03-27] MEDS: CALCIUM 600MG + VIT D 400 IU TAB PO SCH (11:09)
[2021-03-27] MEDS: GABAPENTIN 300 MG CAP PO SCH ×2 (11:10→17:40)
[2021-03-27] MEDS: DOXYCYCLINE HYCLATE 100 MG CAP PO SCH ×2 (11:10→22:32)
[2021-03-27] MEDS: DULoxetine HCL 60 MG CAP PO SCH (11:11)
[2021-03-27] MEDS: ASPIRIN 81 MG ECTAB PO SCH ×2 (11:11→22:33)
[2021-03-27] MEDS: CETIRIZINE HCL 10 MG TABLET PO SCH (11:11)
[2021-03-27] MEDS: BENZONATATE 100 MG CAPSULE PO SCH ×3 (11:12→22:32)
[2021-03-27] MEDS: CEROVITE ADV FORMULA TAB PO SCH (11:12)
[2021-03-27] MEDS: FUROSEMIDE 20 MG TAB PO SCH (11:12)
[2021-03-27] MEDS: FLUTICASONE/VILANTEROL 200/25MCG 14 PUFFS/INHALER INH SCH (11:13)
[2021-03-27] MEDS: POLYETHYLENE (MIRALAX) 17 GM PACK PO SCH (11:13)
[2021-03-27] MEDS: guaiFENesin 600 MG TABCR PO SCH ×2 (11:14→22:34)
[2021-03-27] MEDS: traMADol HCL 50 MG TABLET PO SCH ×2 (11:15→17:39)
[2021-03-27] MEDS ORDERED: SIMETHICONE 80 MG CHEW PO PRN (11:20)
[2021-03-27] MEDS ORDERED: CALCIUM CARBONATE 500 MG CHEWABLE TAB PO PRN (11:20)
[2021-03-27] MEDS ORDERED: PHARMACY GLYCEMIC MGMT CONSULT PRN (15:09)
--- NOTE | 2021-03-27 15:09 | Hospitalist Progress Note ---
Date of Service March 27, 2021 Assessment & Plan (1) Acute exacerbation of chronic obstructive pulmonary disease: (2) Asthma: (3) Acute respiratory failure with hypoxia: Plan: Secondary to acute bronchitis Remains on 3 L of oxygen Wheezing improving Subjectively feels improving Continue Solu-Medrol 40 mg every 8 Nebs every 6 hours Doxycycline twice daily Incentive spirometry (4) Hypomagnesemia: Plan: Repleted Magnesium normal (5) Hypertension: Plan: cont metoprolol tartrate 50 mg BID, losartan 50 mg daily, imdur, and lasix As needed hydralazine (6) Dyslipidemia: Plan: -Continue statin therapy (7) Type 2 diabetes mellitus: Plan: -ISS with Accu-Cheks ACHS, holding metformin A1c 6.8 Pharmacy glycemic control consult (8) Diabetic peripheral neuropathy: Plan: - Cont gabapentin - PT/OT consults, pt uses a walker at home (9) GERD (gastroesophageal reflux disease): Plan: - Cont omeprazole Admission and Anticipated Discharge Date Admission Date: March 26, 2021 Subjective Follow-up for acute on chronic hypoxic respiratory failure, COPD exacerbation, acute bronchitis, etc. Seen resting in bed, comfortable, on 3 L of oxygen via nasal cannula States she feels improved today Breathing is improving, less cough No chest pain, palpitations, dizziness Appetite is good Has some heartburn but no nausea or vomiting No other symptoms Review of Systems Review of Systems: all noted and negative except for above Physical Exam Physical Exam: General- oriented x 3, not in distress, speaks in sentences with no effort or accessory muscle use Eyes- anicteric Neck- no JVD Lungs-positive scattered wheezing right greater than left Good air entry bilaterally Heart- normal rate, regular rhythm; no murmurs Abdomen- normal bowel sounds, nondistended, soft, nontender Extremities-trace pretibial edema, no calf tenderness Neuro- alert, oriented x 3; no gross focal neurologic deficits Skin- warm & dry Results & Data Results & Data ([facility]) Vital Signs (Past 12 Hours) Vital Signs Pulse Resp BP Pulse Ox 03/27/21 13:21 82 19 92 03/27/21 07:59 98 H 18 92 03/27/21 07:27 99 H 16 180/99 H 92 all noted and reviewed including below
[2021-03-27] MEDS ORDERED: NovoLIN-N (NPH) PER UNIT CHARGE SQ ONE (17:30)
[2021-03-27] MEDS: MONTELUKAST SODIUM 10 MG TABLET PO SCH (22:33)
[2021-03-27] MEDS: ATORVASTATIN 40 MG TAB PO SCH (22:34)
[2021-03-27] MEDS: MELATONIN 3 MG TAB PO SCH (22:34)
[2021-03-28] MEDS: IPRATROPIUM BROMIDE NEB SOLN 0.02% 2.5 ML VIAL INH SCH ×4 (00:31→19:47)
[2021-03-28] MEDS: LEVALBUTEROL 1.25MG/0.5ML NEB INH SCH ×4 (00:31→19:47)
[2021-03-28] MEDS: methylPREDNISolone 40 MG in SYRINGE 0 ML IV SCH ×2 (06:31→20:41)
[2021-03-28 06:51] LABS: Hematocrit (blood only) 33.2 % (37-47); Mean Corpuscular Hemoglobin 27.8 pg (25-34); Mean Corpuscular Hgb Conc 30.1 g/dL (32-36); Mean Corpuscular Volume 92.2 fL (80-100); Mean Platelet Volume 10.8 fL (7.4-10.4); Platelet Count 158 K/uL (130-400); RDW Standard Deviation 54.2 fL (36.4-46.3)
[2021-03-28] MEDS: PANTOprazole 40 MG TAB PO SCH (07:10)
[2021-03-28 07:14] LABS: Albumin Globulin Ratio 0.8 (0.9-2); Albumin Level 3.1 gm/dl (3.4-5.0); BUN Creatinine Ratio 34.6 (10-20); Bilirubin,Total 0.3 mg/dl (0.2-1.0); Calcium 8.7 mg/dl (8.5-10.1); Creatinine Clr Calc Pharmacy 56.5 ml/min; Est GFR (African American) 77.8 ml/min; Est GFR (Non-African American) 67.2 ml/min; Globulin 4.1 gm/dl (2.5-4.0); Potassium 4.3 mmol/L (3.5-5.1); Total Protein 7.2 gm/dl (6.0-8.3)
[2021-03-28] MEDS: METOPROLOL TARTRATE 50 MG TAB PO SCH ×2 (08:06→17:10)
[2021-03-28] MEDS: amLODIPine BESYLATE 5 MG TAB PO SCH (08:06)
[2021-03-28] MEDS ORDERED: NovoLIN-N (NPH) PER UNIT CHARGE SQ ONE (08:45)
[2021-03-28] MEDS: ASPIRIN 81 MG ECTAB PO SCH ×2 (08:56→20:43)
[2021-03-28] MEDS: DULoxetine HCL 60 MG CAP PO SCH (08:56)
[2021-03-28] MEDS: BENZONATATE 100 MG CAPSULE PO SCH ×3 (08:57→20:42)
[2021-03-28] MEDS: CEROVITE ADV FORMULA TAB PO SCH (08:57)
[2021-03-28] MEDS: FUROSEMIDE 20 MG TAB PO SCH (08:57)
[2021-03-28] MEDS: FLUTICASONE/VILANTEROL 200/25MCG 14 PUFFS/INHALER INH SCH (08:57)
[2021-03-28] MEDS: DOXYCYCLINE HYCLATE 100 MG CAP PO SCH ×2 (08:58→20:42)
[2021-03-28] MEDS: LOSARTAN POTASSIUM 50 MG TAB PO SCH (08:58)
[2021-03-28] MEDS: guaiFENesin 600 MG TABCR PO SCH ×2 (08:58→20:40)
[2021-03-28] MEDS: ISOSORBIDE MONO EXTENDED REL 60 MG TABCR PO SCH (08:58)
[2021-03-28] MEDS: GABAPENTIN 300 MG CAP PO SCH ×2 (08:59→17:09)
[2021-03-28] MEDS: POLYETHYLENE (MIRALAX) 17 GM PACK PO SCH (08:59)
[2021-03-28] MEDS: traMADol HCL 50 MG TABLET PO SCH ×2 (09:08→17:09)
[2021-03-28] MEDS: INSULIN ASPART PER UNIT SC SCH ×4 (09:09→20:43)
--- NOTE | 2021-03-28 10:34 | Pharmacy Report ---
Pharmacy Glycemic Short Note 2 - Date of Service March 28, 2021 - Glycemic Short BSG Results (Last 24 hours): 03/27/21 03/27/21 03/27/21 12:14 17:09 20:32 Glucose POC Glucose 200 H 180 H 237 H 03/27/21 03/28/21 03/28/21 22:29 06:01 08:19 Glucose 196 H POC Glucose 150 H 219 H OUTPATIENT ANTIDIABETIC REGIMEN: * Metformin 1000mg PO qAM * HbA1c: 6.8% (03/27/21) ASSESSMENT: * Mr Hernandez is an 85yo diabetic female admitted 03/26 with COPD/asthma exac. * Pt has been receiving IV SoluMedrol, leading to steroid-induced hyperglycemia. Dose reduced this morning from SoluMedrol 40mg q8h --> q12h. * NPH added to help cover while steroids on board. * Expect that insulin needs will decrease as steroids taper. Pharmacy will continue to follow and adjust as needed. PLAN FOR INPATIENT GLYCEMIC CONTROL: * Hold outpatient oral diabetes medications * Basal insulin * NPH 30 units (~0.35units/kg) SQ qAM * Bolus insulin * NovoLog per scale ACHS or Q6hrs while NPO * Goal Range: Low 110 mg/dL - High 140 mg/dL * Correction Factor: 30 mg/dL/unit * Nutritional / Prandial insulin per carb ratio of 1 unit per 6 grams CHO consumed PLAN FOR DISCHARGE: * A1c: 6.8% * This indicates excellent glycemic control as an outpt. Expect that pt may resume home regimen on discharge, as long as no contraindications are present. * If patient will be discharged with ongoing steroids, she may require some additional coverage.
--- NOTE | 2021-03-28 11:30 | Hospitalist Progress Note ---
Date of Service March 28, 2021 Assessment & Plan (1) Acute exacerbation of chronic obstructive pulmonary disease: (2) Asthma: (3) Acute respiratory failure with hypoxia: Plan: Secondary to acute bronchitis Remains on 3 L of oxygen Wheezing continues to improve Subjectively feels improving Continue Solu-Medrol 40 mg every 12h Nebs every 6 hours add hypertonic saline BI Doxycycline twice daily Incentive spirometry (4) Hypomagnesemia: Plan: Repleted Magnesium normal (5) Hypertension: Plan: cont metoprolol tartrate 50 mg BID, losartan 50 mg daily, imdur, and lasix As needed hydralazine (6) Dyslipidemia: Plan: -Continue statin therapy (7) Type 2 diabetes mellitus: Plan: -ISS with Accu-Cheks ACHS, holding metformin A1c 6.8 Pharmacy glycemic control consult (8) Diabetic peripheral neuropathy: Plan: - Cont gabapentin - PT: recommending SNF, requiring moderate-max assistance with mobilizing in bed and with ambulation (9) GERD (gastroesophageal reflux disease): Plan: - Cont omeprazole Admission and Anticipated Discharge Date Admission Date: March 26, 2021 Subjective ff up for COPD exacerbation, acute bronchitis, etc on 3 L NC states she feels improved day by day dyspnea is less has occasional productive cough no fever/chills, chest pain no other symptoms Review of Systems Review of Systems: all noted and negative except for above Physical Exam Physical Exam: General- oriented x 3, not in distress, speaks in sentences with no effort or accessory muscle use Eyes- anicteric Neck- no JVD Lungs- faint scattered wheeze BL Heart- normal rate, regular rhythm; no murmurs Abdomen- normal bowel sounds, nondistended, soft, nontender Extremities- no pretibial edema, no calf tenderness Neuro- alert, oriented x 3; no gross focal neurologic deficits Skin- warm & dry Results & Data Results & Data ([facility]) Vital Signs (Past 12 Hours) Vital Signs Temp Pulse Resp BP Pulse Ox 03/28/21 08:01 36.5 C 93 H 18 193/66 H 92 03/28/21 07:20 88 18 94 03/28/21 00:33 82 16 92 all noted and reviewed including below
[2021-03-28] MEDS: CALCIUM 600MG + VIT D 400 IU TAB PO SCH (11:35)
[2021-03-28] MEDS: CETIRIZINE HCL 10 MG TABLET PO SCH (11:35)
[2021-03-28] MEDS: SODIUM CHLOR 7% 4 ML NEB NEB SCH ×2 (13:03→19:48)
[2021-03-28] MEDS: MONTELUKAST SODIUM 10 MG TABLET PO SCH (20:40)
[2021-03-28] MEDS: ATORVASTATIN 40 MG TAB PO SCH (20:41)
[2021-03-28] MEDS: MELATONIN 3 MG TAB PO SCH (20:43)
[2021-03-29] MEDS: LEVALBUTEROL 1.25MG/0.5ML NEB INH SCH ×4 (01:03→19:20)
[2021-03-29] MEDS: IPRATROPIUM BROMIDE NEB SOLN 0.02% 2.5 ML VIAL INH SCH ×4 (01:03→19:19)
[2021-03-29] MEDS: PANTOprazole 40 MG TAB PO SCH (06:36)
[2021-03-29 06:49] LABS: Hematocrit (blood only) 33.4 % (37-47); Hemoglobin 9.9 g/dL (12.0-16.0); Mean Corpuscular Hemoglobin 27.2 pg (25-34); Mean Corpuscular Hgb Conc 29.6 g/dL (32-36); Mean Corpuscular Volume 91.8 fL (80-100); Mean Platelet Volume 10.6 fL (7.4-10.4); Platelet Count 153 K/uL (130-400); RDW Standard Deviation 54.1 fL (36.4-46.3); Red Blood Count 3.64 M/uL (4.2-5.4); White Blood Count 13.73 K/uL (4.8-10.8)
[2021-03-29 07:08] LABS: Albumin Globulin Ratio 0.8 (0.9-2); Albumin Level 2.9 gm/dl (3.4-5.0); BUN Creatinine Ratio 41.4 (10-20); Bilirubin,Total 0.3 mg/dl (0.2-1.0); Calcium 8.6 mg/dl (8.5-10.1); Creatinine Clr Calc Pharmacy 46.3 ml/min; Est GFR (African American) 61.1 ml/min; Est GFR (Non-African American) 52.7 ml/min; Globulin 3.7 gm/dl (2.5-4.0); Potassium 4.6 mmol/L (3.5-5.1); Total Protein 6.6 gm/dl (6.0-8.3)
[2021-03-29] MEDS: METOPROLOL TARTRATE 50 MG TAB PO SCH ×2 (07:49→16:59)
[2021-03-29] MEDS: SODIUM CHLOR 7% 4 ML NEB NEB SCH ×2 (07:54→19:19)
[2021-03-29] MEDS ORDERED: INSULIN HUMAN NPH SC ONE (08:00)
[2021-03-29] MEDS: CEROVITE ADV FORMULA TAB PO SCH (08:24)
[2021-03-29] MEDS: ISOSORBIDE MONO EXTENDED REL 60 MG TABCR PO SCH (08:24)
[2021-03-29] MEDS: GABAPENTIN 300 MG CAP PO SCH ×2 (08:24→17:00)
[2021-03-29] MEDS: BENZONATATE 100 MG CAPSULE PO SCH ×3 (08:25→20:48)
[2021-03-29] MEDS: guaiFENesin 600 MG TABCR PO SCH ×2 (08:25→20:47)
[2021-03-29] MEDS: DOXYCYCLINE HYCLATE 100 MG CAP PO SCH ×2 (08:25→21:29)
[2021-03-29] MEDS: FLUTICASONE/VILANTEROL 200/25MCG 14 PUFFS/INHALER INH SCH (08:25)
[2021-03-29] MEDS: DULoxetine HCL 60 MG CAP PO SCH (08:26)
[2021-03-29] MEDS: LOSARTAN POTASSIUM 50 MG TAB PO SCH (08:26)
[2021-03-29] MEDS: FUROSEMIDE 20 MG TAB PO SCH (08:26)
[2021-03-29] MEDS: ASPIRIN 81 MG ECTAB PO SCH ×2 (08:26→20:48)
[2021-03-29] MEDS: amLODIPine BESYLATE 5 MG TAB PO SCH (08:27)
[2021-03-29] MEDS: POLYETHYLENE (MIRALAX) 17 GM PACK PO SCH (08:27)
[2021-03-29] MEDS: methylPREDNISolone 40 MG in SYRINGE 0 ML IV SCH (08:27)
[2021-03-29] MEDS: traMADol HCL 50 MG TABLET PO SCH ×2 (08:33→17:07)
[2021-03-29] MEDS: INSULIN ASPART PER UNIT SC SCH ×4 (08:43→21:35)
--- NOTE | 2021-03-29 10:55 | Hospitalist Progress Note ---
Date of Service March 29, 2021 Assessment & Plan (1) Acute exacerbation of chronic obstructive pulmonary disease: (2) Asthma: (3) Acute respiratory failure with hypoxia: Plan: This is an 85-year-old female with PMHx of Asthma/COPD, DMII, HLD, Nocturnal hypoxia, HTN, OJEDA cirrhosis, CAD, Urinary incontinence, Anxiety, Lumbar DDD, Osteoporosis who presented to ED on 03/26/2021 secondary to worsening shortness of breath, cough and increased pedal production. She was diagnosed with acute respiratory failure with hypoxia secondary to bronchitis. Oxygen requirements improving, down to 1 L at rest today and 3 L with exertion Wheezing continues to improve Subjectively feels improving D/C Solumedrol in favor of oral prednisone 40mg daily x 5 days Nebs every 6 hours hypertonic saline BI Doxycycline twice daily Incentive spirometry White blood cell count increasing, likely in setting of Solu-Medrol (4) Hypomagnesemia: Plan: Repleted Magnesium normal (5) Hypertension: Plan: cont metoprolol tartrate 50 mg BID, losartan 50 mg daily, amlodipine 10 mg, imdur, and lasix As needed hydralazine Blood pressure elevated first in the morning, but improves with ministration of antihypertensive Steroid likely playing a role in elevation (6) Dyslipidemia: Plan: Continue statin therapy (7) Type 2 diabetes mellitus: Plan: A1c 6.8, hold Metformin Glycemic pharmacy on board, appreciate their assistance Blood Sugar stable (8) Diabetic peripheral neuropathy: Plan: Cont gabapentin (9) GERD (gastroesophageal reflux disease): Plan: Cont omeprazole Plan: DVT prophylaxis: SCD/TEDS, add SQ Heparin Dispo: PT/OT recommending SNF when medically stable, pt refusing and wishes to return to apartment, she has PT services and daily caregivers from [id number], possible d/c in next 1-2 days DNR/DNI PCP: Dena Lira MD Pt was seen and examined in collaboration with Dr. Campos, please see addendum The chart was completed utilizing [employer] Speech voice recognition software. Grammatical errors, random word insertions, pronoun errors, and incomplete sentences are an occasional consequence of this system due to software limitations, ambient noise, and hardware issues. Any formal questions or concerns about the content, text, or information contained within the body of this dictation should be directly addressed to the provider for clarification. Admission and Anticipated Discharge Date Admission Date: March 26, 2021 Supervising Physician Co-Signing Physician Notes Attending Addendum: care coordinated with MARIANA Pham please refer to her notes for full details, I agree with her notes patient seen and examined, records reviewed by myself as well on exam, patient seen resting in bed, comfortable, on 1.5 L of oxygen States she continues to feel improved Breathing is easier Less cough no other symptoms VS noted and reviewed oriented x3, not in distress, speaks in sentences with no effort nor accessory muscle use normal rate, regular rhythm, no murmurs Mild wheeze bilaterally, good air entry bilaterally non distended, soft, nontender no bipedal edema, erythema, warmth no neuro deficits All labs noted and reviewed ASSESSMENT AND PLAN Acute on chronic hypoxic respiratory failure, secondary to COPD exacerbation, secondary to acute bronchitis Continues to improve Transition from Solu-Medrol IV to oral prednisone 40 mg daily Continue doxycycline, nebs, incentive spirometry Anticipate discharge home tomorrow other diagnoses and plan of care as per MARIANA Pham's notes Kris Campos MD Subjective Patient was seen and examined in room 307. She offers no acute concerns today but states, "depending on who you are." She feels her breathing is slightly more difficult today, than yesterday. She denies fever, chills, sweats, chest pain, shortness breath at rest, nausea, vomiting, abdominal pain. Passing minimal flatus. She states she has not had a bowel movement in, "a year." She does admit to a cough. Review of Systems Review of Systems: All systems reviewed & are unremarkable except as noted in HPI & below Physical Exam Physical Exam: Gen: Elderly, female, sitting up in bed, A&O x3 HEENT: Normocephalic, atraumatic, conjunctivae moist, sclerae anicteric, mucous membranes moist. Lung: Bilateral expiratory wheeze at bases, scattered rhonchi, 1 L of O2 at rest, 3 L with exertion Heart: Regular rate, regular rhythm, no murmurs, rubs, or gallops Abdomen: Soft, NT, ND +BS x 4 Extremities: No edema Skin: Warm, no rash, negative turgor. Results & Data Results & Data ([facility]) Vital Signs (Past 12 Hours) Vital Signs Temp Pulse Resp BP Pulse Ox 03/29/21 07:52 84 16 95 03/29/21 07:34 36.6 C 82 16 193/71 H 95 03/29/21 06:37 92 03/29/21 01:03 77 20 95 Laboratory Results Short CBC 03/29/21 Range/Units 06:36 WBC 13.73 H (4.8-10.8) K/uL Hgb 9.9 L (12.0-16.0) g/dL Hct 33.4 L (37-47) % Plt Count 153 (130-400) K/uL BMP 03/29/21 06:36 Sodium 139 Potassium 4.6 Chloride 102 Carbon Dioxide 31 BUN 41 H Creatinine 0.99 Glucose 184 H Calcium 8.6 Liver Function 03/29/21 Range/Units 06:36 Total Bilirubin 0.3 (0.2-1.0) mg/dl AST 21 (13-39) U/L ALT 18 (7-52) U/L Alkaline Phosphatase 56 (34-104) U/L Albumin 2.9 L (3.4-5.0) gm/dl Medications Administered Current Inpatient Medications Acetaminophen (Acetaminophen 325 Mg Tab) 650 mg PO Q4H PRN PRN Reason: Moderate Pain Stop: 04/25/21 10:19 Last Admin: 03/27/21 14:33 Dose: 650 mg Documented by: Albuterol (Albuterol Hfa 8 Gm Inhaler) 2 puffs INH QID PRN PRN Reason: Shortness Of Breath Stop: 04/25/21 10:42 Amlodipine Besylate (Amlodipine Besylate 5 Mg Tab) [facility] [place]: 04/25/21 10:42 Last Admin: 03/29/21 08:27 Dose: 10 mg Documented by: Aspirin (Aspirin 81 Mg Ectab) 81 mg PO BID [facility] Stop: 04/25/21 10:42 Last Admin: 03/29/21 08:26 Dose: 81 mg Documented by: Atorvastatin Calcium (Atorvastatin 40 Mg Tab) 40 mg PO HS [facility] Stop: 04/25/21 20:59 Last Admin: 03/28/21 20:41 Dose: 40 mg Documented by: Benzonatate (Benzonatate 100 Mg Capsule) 100 mg PO TID [facility] Stop: 04/25/21 10:19 Last Admin: 03/29/21 08:25 Dose: 100 mg Documented by: Calamine/Phenol (Menthol-Zinc Oxide 360 Appln/120 Gm Tube) 1 appln EXT QID PRN PRN Reason: redness Stop: 04/25/21 10:42 Calcium Carbonate (Calcium Carbonate 500 Mg Chewable Tab) 1,500 mg PO QID PRN PRN Reason: Indigestion Stop: 04/26/21 11:19 Cetirizine HCl (Cetirizine Hcl 10 Mg Tablet) 10 mg PO QDL [facility] Stop: 04/25/21 11:29 Last Admin: 03/28/21 11:35 Dose: 10 mg Documented by: Dextrose (Dextrose 50% 50 Ml Syringe) 25 - 50 ml IV UD PRN; Protocol PRN Reason: Hypoglycemia Protocol Stop: 04/25/21 10:42 Docusate Sodium (Docusate Sodium 100 Mg Cap) 100 mg PO BID PRN PRN Reason: Constipation Stop: 04/25/21 10:42 Doxycycline Hyclate (Doxycycline Hyclate 100 Mg Cap) 100 mg PO BID [facility]; Protocol Stop: 04/02/21 12:14 Last Admin: 03/29/21 08:25 Dose: 100 mg Documented by: Duloxetine HCl (Duloxetine Hcl 60 Mg Cap) 60 mg PO QAM [facility] Stop: 04/25/21 10:42 Last Admin: 03/29/21 08:26 Dose: 60 mg Documented by: Fluticasone/Vilanterol (Fluticasone/Vilanterol 200/25mcg 14 Puffs/Inhaler) 1 puffs INH DAILY [facility] Stop: 04/25/21 11:59 Last Admin: 03/29/21 08:25 Dose: 1 puffs Documented by: Furosemide (Furosemide 20 Mg Tab) 20 mg PO QAM [facility] Stop: 04/25/21 10:42 Last Admin: 03/29/21 08:26 Dose: 20 mg Documented by: Gabapentin (Gabapentin 300 Mg Cap) 300 mg PO BIDM [facility] Stop: 04/25/21 16:59 Last Admin: 03/29/21 08:24 Dose: 300 mg Documented by: Glucagon (Glucagon For Inj 1 Mg Vial) 1 mg SQ UD PRN; Protocol PRN Reason: Hypoglycemia Protocol Stop: 04/25/21 10:42 Glucose (Glucose 10 Tabs/Tube) 4 - 8 tabs PO UD PRN; Protocol PRN Reason: Hypoglycemia Protocol Stop: 04/25/21 10:42 Glucose (Glucose 40% Gel 15 Gm Tube) 15 - 30 gm PO UD PRN; Protocol PRN Reason: Hypoglycemia Protocol Stop: 04/25/21 10:42 Guaifenesin (Guaifenesin 600 Mg Tabcr) 1,200 mg PO Q12 [facility] Stop: 04/25/21 10:19 Last Admin: 03/29/21 08:25 Dose: 1,200 mg Documented by: Hydralazine HCl (Hydralazine Hcl 20 Mg/Ml Vial) 5 mg IV Q6H PRN PRN Reason: Blood Pressure - High Stop: 04/25/21 19:29 Methylprednisolone 40 mg/ (Syringe) 0.64 mls @ 1.5 mls/min IV Q12H [facility] Stop: 04/27/21 20:59 Last Admin: 03/29/21 08:27 Dose: 1.5 mls/min Documented by: Insulin Aspart (Insulin Aspart Per Unit) 0 units SC ACHS [facility] Stop: 04/25/21 11:29 Last Admin: 03/29/21 08:43 Dose: 11 units Documented by: Ipratropium Wilber (Ipratropium Wilber Neb Soln 0.02% 2.5 Ml Vial) 0.5 mg INH Q6R [facility] Stop: 04/25/21 18:59 Last Admin: 03/29/21 07:52 Dose: 0.5 mg Documented by: Isosorbide Mononitrate (Isosorbide [place] Extended Rel 60 Mg Tabcr) 60 mg PO QAM [facility] Stop: 04/25/21 10:42 Last Admin: 03/29/21 08:24 Dose: 60 mg Documented by: Levalbuterol HCl (Levalbuterol 1.25mg/0.5ml Neb) 1.25 mg INH Q6R [facility] Stop: 04/25/21 18:59 Last Admin: 03/29/21 07:52 Dose: 1.25 mg Documented by: Losartan Potassium (Losartan Potassium 50 Mg Tab) 50 mg PO QAM [facility] Stop: 04/25/21 10:42 Last Admin: 03/29/21 08:26 Dose: 50 mg Documented by: Meclizine HCl (Meclizine 12.5 Mg Tab) 12.5 mg PO Q6H PRN PRN Reason: Vertigo Stop: 04/25/21 15:57 Melatonin (Melatonin 3 Mg Tab) 9 mg PO [facility] Stop: 04/25/21 20:59 Last Admin: 03/28/21 20:43 Dose: 9 mg Documented by: Metoprolol Tartrate (Metoprolol Tartrate 50 Mg Tab) 50 mg PO BIDM [facility] Stop: 04/25/21 16:59 Last Admin: 03/29/21 07:49 Dose: 50 mg Documented by: Miscellaneous (Carbohydrates For Hypoglycemia ) 15 - 30 gm PO UD PRN PRN Reason: Hypoglycemia Protocol Stop: 04/25/21 10:42 Miscellaneous Information (Pharmacy Glycemic Mgmt Consult) 1 ea N/A UD PRN PRN Reason: Consult Stop: 04/26/21 15:08 Montelukast Sodium (Montelukast Sodium 10 Mg Tablet) 10 mg PO [facility] Stop: 04/25/21 20:59 Last Admin: 03/28/21 20:40 Dose: 10 mg Documented by: Multivitamins/Minerals (Calcium 600mg + Vit D 400 Iu Tab) 1 tab PO QDL [facility] Stop: 04/25/21 11:29 Last Admin: 03/28/21 11:35 Dose: 1 tab Documented by: Multivitamins/Minerals (Cerovite Adv Formula Tab) 1 tab PO QAM [facility] Stop: 04/25/21 10:42 Last Admin: 03/29/21 08:24 Dose: 1 tab Documented by: Nitroglycerin (Nitroglycerin Sl 0.4 Mg/Tab Tab) 0.4 mg SL Q5M PRN PRN Reason: Chest Pain Stop: 04/25/21 10:42 Nystatin (Nystatin Powder 15gm Btl) 1 appln EXT PRN PRN PRN Reason: Affected Skin Folds Stop: 04/25/21 15:27 Ondansetron HCl (Ondansetron Inj 2 Mg/Ml 2 Ml Vial) 4 mg IV Q4H PRN PRN Reason: Nausea And Vomiting Stop: 04/25/21 10:19 Last Admin: 03/27/21 07:27 Dose: 4 mg Documented by: Pantoprazole Sodium ([facility] 40 Mg Tab) [facility]: 04/26/21 06:29 Last Admin: 03/29/21 06:36 Dose: 40 mg Documented by: Polyethylene Glycol (Polyethylene (Miralax) 17 Gm Pack) 17 gm PO DAILY [facility] Stop: 04/25/21 10:42 Last Admin: 03/29/21 08:27 Dose: 17 gm Documented by: Senna/Docusate Sodium (Docusate Sodium/Senna 50/8.6mg Tab) 1 tab PO QAM [facility] Stop: 04/28/21 09:59 Simethicone (Simethicone 80 Mg Chew) 80 mg PO Q6H PRN PRN Reason: Gas or Constipation Stop: 04/26/21 11:19 Sodium Chloride (Sodium Chlor 7% 4 Ml Neb) 4 ml NEB BIDR [facility] Stop: 04/27/21 12:59 Last Admin: 03/29/21 07:54 Dose: Not Given Documented by: Tramadol HCl (Tramadol Hcl 50 Mg Tablet) 50 mg PO BIDM [facility] Stop: 04/25/21 16:59 Last Admin: 03/29/21 08:33 Dose: 50 mg Documented by:
[2021-03-29] MEDS: DOCUSATE SODIUM/SENNA 50/8.6MG TAB PO SCH (10:58)
[2021-03-29] MEDS: CETIRIZINE HCL 10 MG TABLET PO SCH (10:58)
[2021-03-29] MEDS: CALCIUM 600MG + VIT D 400 IU TAB PO SCH (10:58)
[2021-03-29] MEDS: HEPARIN SOD 5,000 UNIT/0.5 ML VIAL SQ SCH ×2 (15:10→21:30)
[2021-03-29] MEDS: MONTELUKAST SODIUM 10 MG TABLET PO SCH (20:47)
[2021-03-29] MEDS: MELATONIN 3 MG TAB PO SCH (20:48)
[2021-03-29] MEDS: ATORVASTATIN 40 MG TAB PO SCH (20:48)
[2021-03-30] MEDS: LEVALBUTEROL 1.25MG/0.5ML NEB INH SCH ×4 (00:15→19:45)
[2021-03-30] MEDS: IPRATROPIUM BROMIDE NEB SOLN 0.02% 2.5 ML VIAL INH SCH ×4 (00:15→19:45)
[2021-03-30 04:42] LABS: Appearance Urine Clear (Clear); Bilirubin Urine Negative (Negative); Blood Urine Negative (Negative); Color Urine Yellow; Glucose Urine UA Negative (Negative); Ketones Urine Negative (Negative); Leukocyte Esterase Urine Negative (Negative); Nitrite Urine Negative (Negative); Protein Urine Negative (Negative); Urobilinogen Urine Negative (Negative); pH Urine 5.5 (4.5-7.5)
[2021-03-30] MEDS: PANTOprazole 40 MG TAB PO SCH (05:30)
[2021-03-30] MEDS: HEPARIN SOD 5,000 UNIT/0.5 ML VIAL SQ SCH ×3 (05:30→21:26)
[2021-03-30] MEDS: SODIUM CHLOR 7% 4 ML NEB NEB SCH ×2 (07:30→19:45)
[2021-03-30] MEDS: METOPROLOL TARTRATE 50 MG TAB PO SCH ×2 (08:25→18:04)
[2021-03-30] MEDS: GABAPENTIN 300 MG CAP PO SCH ×2 (08:25→18:04)
[2021-03-30] MEDS: BENZONATATE 100 MG CAPSULE PO SCH ×3 (08:26→21:25)
[2021-03-30] MEDS: ISOSORBIDE MONO EXTENDED REL 60 MG TABCR PO SCH (08:26)
[2021-03-30] MEDS: DULoxetine HCL 60 MG CAP PO SCH (08:27)
[2021-03-30] MEDS: ASPIRIN 81 MG ECTAB PO SCH ×2 (08:27→21:21)
[2021-03-30] MEDS: DOXYCYCLINE HYCLATE 100 MG CAP PO SCH (08:28)
[2021-03-30] MEDS: FUROSEMIDE 20 MG TAB PO SCH (08:28)
[2021-03-30] MEDS: DOCUSATE SODIUM/SENNA 50/8.6MG TAB PO SCH (08:29)
[2021-03-30] MEDS: LOSARTAN POTASSIUM 50 MG TAB PO SCH ×2 (08:29→21:22)
[2021-03-30] MEDS: amLODIPine BESYLATE 5 MG TAB PO SCH (08:30)
[2021-03-30] MEDS: guaiFENesin 600 MG TABCR PO SCH ×2 (08:30→21:24)
[2021-03-30] MEDS: CEROVITE ADV FORMULA TAB PO SCH (08:32)
[2021-03-30] MEDS: FLUTICASONE/VILANTEROL 200/25MCG 14 PUFFS/INHALER INH SCH (08:33)
[2021-03-30] MEDS: POLYETHYLENE (MIRALAX) 17 GM PACK PO SCH (08:37)
[2021-03-30] MEDS: INSULIN ASPART PER UNIT SC SCH ×4 (08:38→21:17)
[2021-03-30] MEDS: traMADol HCL 50 MG TABLET PO SCH ×2 (08:38→18:03)
[2021-03-30] MEDS: INSULIN HUMAN NPH SC SCH (08:53)
[2021-03-30] MEDS ORDERED: predniSONE 20 MG TAB PO SCH (09:00)
[2021-03-30 10:40] LABS: Basophils # (auto) 0.01 K/uL (0-0.2); Basophils % (auto) 0.1 %; Hematocrit (blood only) 31.6 % (37-47); Hemoglobin 9.5 g/dL (12.0-16.0); Immature Granulocytes # (auto) 0.05 K/uL (0.00-0.02); Immature Granulocytes % (auto) 0.3 %; Lymphocytes # (auto) 1.25 K/uL (1.2-3.4); Lymphocytes % (auto) 8.7 %; Mean Corpuscular Hemoglobin 27.6 pg (25-34); Mean Corpuscular Volume 91.9 fL (80-100); Mean Platelet Volume 10.3 fL (7.4-10.4); Monocytes # (auto) 1.25 K/uL (0.11-0.59); Monocytes % (auto) 8.7 %; Neutrophils # (auto) 11.84 K/uL (1.4-6.5); Neutrophils % (auto) 82.2 %; Platelet Count 156 K/uL (130-400); RDW Coefficient of Variation 15.8 % (11.5-14.5); RDW Standard Deviation 53.4 fL (36.4-46.3); Red Blood Count 3.44 M/uL (4.2-5.4)
[2021-03-30 10:56] LABS: Mean Corpuscular Hgb Conc 30.1 g/dL (32-36)
[2021-03-30 11:17] LABS: BUN Creatinine Ratio 41.3 (10-20); Calcium 8.4 mg/dl (8.5-10.1); Creatinine Clr Calc Pharmacy 57.2 ml/min; Est GFR (Non-African American) 68.2 ml/min; Potassium 4.1 mmol/L (3.5-5.1)
--- NOTE | 2021-03-30 11:20 | XRay Report ---
XR chest 2V PA/lateral CLINICAL HISTORY: worsening hypoxia, cough COMPARISON STUDY: Chest CT January 26, 2021. Chest radiograph March 26, 2021. FINDINGS: Lung volumes are diminished. This is unchanged. There is no pneumothorax or pleural effusio n. No evidence for pulmonary edema. Multifocal nodular airspace opacities have developed since prior examination. IMPRESSION: Interval development of moderate bilateral airspace opacities suggestive of viral pneumo jeffrey. ACT 112: Negative or not required by law. Electronically signed by: Cristian Aguilar M.D. 03/30/2021 11:19 AM
--- NOTE | 2021-03-30 12:09 | Pharmacy Report ---
Pharmacy Glycemic Short Note 2 - Date of Service March 30, 2021 - Glycemic Short BSG Results (Last 24 hours): 03/29/21 03/29/21 03/30/21 16:49 20:44 07:55 Glucose POC Glucose 115 H 127 H 85 03/30/21 03/30/21 10:29 11:44 Glucose 201 H POC Glucose 164 H OUTPATIENT ANTIDIABETIC REGIMEN: * Metformin 1000mg PO qAM * HbA1c: 6.8% (03/27/21) ASSESSMENT: 03/30/21 * Patient's BSGs yesterday were [phone]. * Patient received 55 units of insulin (30 units of NPH plus 25 units of Novolog). * Fasting today is 85 mg/dL. * Starting prednisone 40 mg PO daily. Continue NPH 30 units daily and Novolog. Baseline * Mr Hernandez is an 85yo diabetic female admitted 03/26 with COPD/asthma exac. * Pt has been receiving IV SoluMedrol, leading to steroid-induced hyperglycemia. Dose reduced this morning from SoluMedrol 40mg q8h --> q12h. * NPH added to help cover while steroids on board. * Expect that insulin needs will decrease as steroids taper. Pharmacy will continue to follow and adjust as needed. PLAN FOR INPATIENT GLYCEMIC CONTROL: * Hold outpatient oral diabetes medications * Basal insulin * NPH 30 units (~0.35units/kg) SQ qAM * Bolus insulin * NovoLog per scale ACHS or Q6hrs while NPO * Goal Range: Low 110 mg/dL - High 140 mg/dL * Correction Factor: 30 mg/dL/unit * Nutritional / Prandial insulin per carb ratio of 1 unit per 6 grams CHO consumed PLAN FOR DISCHARGE: * A1c: 6.8% * This indicates excellent glycemic control as an outpt. Expect that pt may resume home regimen on discharge, as long as no contraindications are present. * If patient will be discharged with ongoing steroids, she may require some additional coverage.
--- NOTE | 2021-03-30 12:28 | Hospitalist Progress Note ---
Date of Service March 30, 2021 Assessment & Plan (1) Acute exacerbation of chronic obstructive pulmonary disease: (2) Asthma: (3) Acute respiratory failure with hypoxia: Plan: This is an 85-year-old female with PMHx of Asthma/COPD, DMII, HLD, Nocturnal hypoxia, HTN, OJEDA cirrhosis, CAD, Urinary incontinence, Anxiety, Lumbar DDD, Osteoporosis who presented to ED on 03/26/2021 secondary to worsening shortness of breath, cough and increased pedal production. She was diagnosed with acute respiratory failure with hypoxia secondary to bronchitis. Increased O2 requirements today Repeat CXR: Interval development of moderate bilateral airspace opacities suggestive of viral pneumonia. Wheezing continues to improve D/C Solumedrol in favor of oral prednisone 40mg daily x 5 days, day 2 Nebs every 6 hours hypertonic saline BI Incentive spirometry White blood cell count increasing, likely in setting of Solu-Medrol COVID and BIOfire negative D/C oral doxy Start IV zosyn, oral levaquin MRSA Swab - if positive will add vanco (4) Hypomagnesemia: Plan: Repleted Magnesium normal (5) Hypertension: Plan: cont metoprolol tartrate 50 mg BID, losartan 50 mg daily, amlodipine 10 mg, imdur, and lasix As needed hydralazine Blood pressure remains elevated, steroid may be playing a role increase losartan to bid (6) Dyslipidemia: Plan: Continue statin therapy (7) Type 2 diabetes mellitus: Plan: A1c 6.8, hold Metformin Glycemic pharmacy on board, appreciate their assistance Blood Sugar stable (8) Diabetic peripheral neuropathy: Plan: Cont gabapentin (9) GERD (gastroesophageal reflux disease): Plan: Cont omeprazole Plan: DVT prophylaxis: SCD/TEDS, add SQ Heparin Dispo: PT/OT recommending SNF when medically stable, pt refusing and wishes to return to apartment, she has PT services and daily caregivers from [phone], pt initially improving but with increased O2 requirements today, to remain hospitalized DNR/DNI PCP: Dena Lira MD Pt was seen and examined in collaboration with Dr. Campos, please see addendum The chart was completed utilizing [employer] Speech voice recognition software. Grammatical errors, random word insertions, pronoun errors, and incomplete sentences are an occasional consequence of this system due to software limitations, ambient noise, and hardware issues. Any formal questions or concerns about the content, text, or information contained within the body of this dictation should be directly addressed to the provider for clarification. Admission and Anticipated Discharge Date Admission Date: March 26, 2021 Supervising Physician Co-Signing Physician Notes Attending Addendum: care coordinated with MARIANA Pham please refer to her notes for full details, I agree with her notes patient seen and examined, records reviewed by myself as well on exam, patient seen resting in bed, on 4 L of oxygen, not in distress States she feels better overall Breathing is improving no other symptoms VS noted and reviewed oriented x 3 , not in distress, speaks in sentences with no effort nor accessory muscle use normal rate, regular rhythm, no murmurs Positive crackles bilaterally, no wheezing non distended, soft, nontender no bipedal edema, erythema, warmth no neuro deficits Chest x-ray: Positive bilateral infiltrates ASSESSMENT AND PLAN Acute on chronic hypoxic respiratory failure COPD exacerbation, Bilateral pneumonia -Patient already improving for the past 3 days since admission, yesterday wheezing mostly resolved, at 1.5 L O2 which is her baseline -Today patient positive for crackles bilaterally Chest x-ray showing bilateral infiltrates -DC doxycycline Start Zosyn plus Levaquin Resume IV Solu-Medrol 40 mg twice daily Nebs every 6 hours Repeat Covid screen negative other diagnoses and plan of care as per MARIANA Solis's notes Kris Campos MD Subjective Patient was seen and examined in room 307. "I'm getting out of here today and going home." She has increased cough today and green sputum production. Denies f/c/s, chest pain, sob at rest, n/v/d. She is requiring 4L of here today. Review of Systems Review of Systems: All systems reviewed & are unremarkable except as noted in HPI & below Physical Exam Physical Exam: Gen: Elderly, female, sitting up in bed, A&O x3 HEENT: Normocephalic, atraumatic, conjunctivae moist, sclerae anicteric, mucous membranes moist. Lung: Bilateral expiratory wheeze at bases, scattered rhonchi, 4L of O2 Heart: Regular rate, regular rhythm, no murmurs, rubs, or gallops Abdomen: Soft, NT, ND +BS x 4 Extremities: No edema Skin: Warm, no rash, negative turgor. Results & Data Results & Data ([facility]) Vital Signs (Past 12 Hours) Vital Signs Temp Pulse Resp BP Pulse Ox 03/30/21 12:22 74 21 94 03/30/21 07:38 36.6 C 95 H 16 176/73 H 98 03/30/21 07:31 90 18 92 Laboratory Results Short CBC 03/30/21 Range/Units 10:29 WBC 14.40 H (4.8-10.8) K/uL Hgb 9.5 L (12.0-16.0) g/dL Hct 31.6 L (37-47) % Plt Count 156 (130-400) K/uL BMP 03/30/21 10:29 Sodium 140 Potassium 4.1 Chloride 103 Carbon Dioxide 32 BUN 33 H Creatinine 0.80 Glucose 201 H Calcium 8.4 L Urine 03/30/21 Range/Units Unknown Urine Color Yellow Urine Appearance Clear (Clear) Urine pH 5.5 (4.5-7.5) Ur Specific [place] 1.020 (1.000-1.030) Urine Protein Negative (Negative) Urine Glucose (UA) Negative (Negative) Diagnostic Findings Chest X-Ray 03/30/21 10:21 XR chest 2V PA/lateral CLINICAL HISTORY: worsening hypoxia, cough COMPARISON STUDY: Chest CT January 26, 2021. Chest radiograph March 26, 2021. FINDINGS: Lung volumes are diminished. This is unchanged. There is no pneumothorax or pleural effusion. No evidence for pulmonary edema. Multifocal nodular airspace opacities have developed since prior examination. IMPRESSION: Interval development of moderate bilateral airspace opacities suggestive of viral pneumonia. ACT 112: Negative or not required by law. Electronically signed by: Cristian Aguilar M.D. 03/30/2021 11:19 AM Medications Administered Current Inpatient Medications Acetaminophen (Acetaminophen 325 Mg Tab) 650 mg PO Q4H PRN PRN Reason: Moderate Pain Stop: 04/25/21 10:19 Last Admin: 03/27/21 14:33 Dose: 650 mg Documented by: Albuterol (Albuterol Hfa 8 Gm Inhaler) 2 puffs INH QID PRN PRN Reason: Shortness Of Breath Stop: 04/25/21 10:42 Amlodipine Besylate (Amlodipine Besylate 5 Mg Tab) 10 mg PO QAM [facility] Stop: 04/25/21 10:42 Last Admin: 03/30/21 08:30 Dose: 10 mg Documented by: Aspirin (Aspirin 81 Mg Ectab) 81 mg PO BID [facility] Stop: 04/25/21 10:42 Last Admin: 03/30/21 08:27 Dose: 81 mg Documented by: Atorvastatin Calcium (Atorvastatin 40 Mg Tab) 40 mg PO HS [facility] Stop: 04/25/21 20:59 Last Admin: 03/29/21 20:48 Dose: 40 mg Documented by: Benzonatate (Benzonatate 100 Mg Capsule) 100 mg PO TID [facility] Stop: 04/25/21 10:19 Last Admin: 03/30/21 08:26 Dose: 100 mg Documented by: Calamine/Phenol (Menthol-Zinc Oxide 360 Appln/120 Gm Tube) 1 appln EXT QID PRN PRN Reason: redness Stop: 04/25/21 10:42 Calcium Carbonate (Calcium Carbonate 500 Mg Chewable Tab) 1,500 mg PO QID PRN PRN Reason: Indigestion Stop: 04/26/21 11:19 Cetirizine HCl (Cetirizine Hcl 10 Mg Tablet) 10 mg PO QDL [facility] Stop: 04/25/21 11:29 Last Admin: 03/29/21 10:58 Dose: 10 mg Documented by: Dextrose (Dextrose 50% 50 Ml Syringe) 25 - 50 ml IV UD PRN; Protocol PRN Reason: Hypoglycemia Protocol Stop: 04/25/21 10:42 Docusate Sodium (Docusate Sodium 100 Mg Cap) 100 mg PO BID PRN PRN Reason: Constipation Stop: 04/25/21 10:42 Last Admin: 03/29/21 20:48 Dose: 100 mg Documented by: Doxycycline Hyclate (Doxycycline Hyclate 100 Mg Cap) 100 mg PO BID [facility]; Protocol Stop: 04/02/21 12:14 Last Admin: 03/30/21 08:28 Dose: 100 mg Documented by: Duloxetine HCl (Duloxetine Hcl 60 Mg Cap) 60 mg PO QAM [facility] Stop: 04/25/21 10:42 Last Admin: 03/30/21 08:27 Dose: 60 mg Documented by: Fluticasone/Vilanterol (Fluticasone/Vilanterol 200/25mcg 14 Puffs/Inhaler) 1 puffs INH DAILY [facility] Stop: 04/25/21 11:59 Last Admin: 03/30/21 08:33 Dose: 1 puffs Documented by: Furosemide (Furosemide 20 Mg Tab) 20 mg PO QAM [facility] Stop: 04/25/21 10:42 Last Admin: 03/30/21 08:28 Dose: 20 mg Documented by: Gabapentin (Gabapentin 300 Mg Cap) 300 mg PO BIDM [facility] Stop: 04/25/21 16:59 Last Admin: 03/30/21 08:25 Dose: 300 mg Documented by: Glucagon (Glucagon For Inj 1 Mg Vial) 1 mg SQ UD PRN; Protocol PRN Reason: Hypoglycemia Protocol Stop: 04/25/21 10:42 Glucose (Glucose 10 Tabs/Tube) 4 - 8 tabs PO UD PRN; Protocol PRN Reason: Hypoglycemia Protocol Stop: 04/25/21 10:42 Glucose (Glucose 40% Gel 15 Gm Tube) 15 - 30 gm PO UD PRN; Protocol PRN Reason: Hypoglycemia Protocol Stop: 04/25/21 10:42 Guaifenesin (Guaifenesin 600 Mg Tabcr) 1,200 mg PO Q12 [facility] Stop: 04/25/21 10:19 Last Admin: 03/30/21 08:30 Dose: 1,200 mg Documented by: Heparin Sodium (Porcine) (Heparin Sod 5,000 Unit/0.5 Ml Vial) 5,000 units SQ Q8 [facility] Stop: 04/28/21 13:59 Last Admin: 03/30/21 05:30 Dose: 5,000 units Documented by: Hydralazine HCl (Hydralazine Hcl 20 Mg/Ml Vial) 5 mg IV Q6H PRN PRN Reason: Blood Pressure - High Stop: 04/25/21 19:29 Insulin Aspart (Insulin Aspart Per Unit) 0 units SC ACHS [facility] Stop: 04/25/21 11:29 Last Admin: 03/30/21 08:38 Dose: 1 units Documented by: Insulin Human NPH (Insulin Human Nph) 30 units SC DAILY [facility] Stop: 04/29/21 08:59 Last Admin: 03/30/21 08:53 Dose: 30 units Documented by: Ipratropium [place] (Ipratropium [place] Neb Soln 0.02% 2.5 Ml Vial) 0.5 mg INH Q6R [facility] Stop: 04/25/21 18:59 Last Admin: 03/30/21 12:22 Dose: 0.5 mg Documented by: Isosorbide Mononitrate (Isosorbide [place] Extended Rel 60 Mg Tabcr) [facility] [place]: 04/25/21 10:42 Last Admin: 03/30/21 08:26 Dose: 60 mg Documented by: Levalbuterol HCl (Levalbuterol 1.25mg/0.5ml Neb) 1.25 mg INH Q6R [facility] Stop: 04/25/21 18:59 Last Admin: 03/30/21 12:22 Dose: 1.25 mg Documented by: Losartan Potassium (Losartan Potassium 50 Mg Tab) 50 mg PO QAM [facility] Stop: 04/25/21 10:42 Last Admin: 03/30/21 08:29 Dose: 50 mg Documented by: Meclizine HCl (Meclizine 12.5 Mg Tab) 12.5 mg PO Q6H PRN PRN Reason: Vertigo Stop: 04/25/21 15:57 Melatonin (Melatonin 3 Mg Tab) 9 mg PO [facility] Stop: 04/25/21 20:59 Last Admin: 03/29/21 20:48 Dose: 9 mg Documented by: Metoprolol Tartrate (Metoprolol Tartrate 50 Mg Tab) 50 mg PO BIDM [facility] Stop: 04/25/21 16:59 Last Admin: 03/30/21 08:25 Dose: 50 mg Documented by: Miscellaneous (Carbohydrates For Hypoglycemia ) 15 - 30 gm PO UD PRN PRN Reason: Hypoglycemia Protocol Stop: 04/25/21 10:42 Miscellaneous Information (Pharmacy Glycemic Mgmt Consult) 1 ea N/A UD PRN PRN Reason: Consult Stop: 04/26/21 15:08 Montelukast Sodium (Montelukast Sodium 10 Mg Tablet) 10 mg PO [facility] Stop: 04/25/21 20:59 Last Admin: 03/29/21 20:47 Dose: 10 mg Documented by: Multivitamins/Minerals (Calcium 600mg + Vit D 400 Iu Tab) 1 tab PO QDL [facility] Stop: 04/25/21 11:29 Last Admin: 03/29/21 10:58 Dose: 1 tab Documented by: Multivitamins/Minerals (Cerovite Adv Formula Tab) 1 [facility] [place]: 04/25/21 10:42 Last Admin: 03/30/21 08:32 Dose: 1 tab Documented by: Nitroglycerin (Nitroglycerin Sl 0.4 Mg/Tab Tab) 0.4 mg SL Q5M PRN PRN Reason: Chest Pain Stop: 04/25/21 10:42 Nystatin (Nystatin Powder 15gm Btl) 1 appln EXT PRN PRN PRN Reason: Affected Skin Folds Stop: 04/25/21 15:27 Ondansetron HCl (Ondansetron Inj 2 Mg/Ml 2 Ml Vial) 4 mg IV Q4H PRN PRN Reason: Nausea And Vomiting Stop: 04/25/21 10:19 Last Admin: 03/27/21 07:27 Dose: 4 mg Documented by: Pantoprazole Sodium (Pantoprazole 40 Mg Tab) 40 mg PO DAILYBB [facility] Stop: 04/26/21 06:29 Last Admin: 03/30/21 05:30 Dose: 40 mg Documented by: Polyethylene Glycol (Polyethylene (Miralax) 17 Gm Pack) 17 gm PO DAILY [facility] Stop: 04/25/21 10:42 Last Admin: 03/30/21 08:37 Dose: 17 gm Documented by: Prednisone (Prednisone 20 Mg Tab) 40 mg PO DAILY [facility] Stop: 04/03/21 09:01 Last Admin: 03/30/21 08:29 Dose: 40 mg Documented by: Senna/Docusate Sodium (Docusate Sodium/Senna 50/8.6mg Tab) 1 tab PO QAM [facility] Stop: 04/28/21 09:59 Last Admin: 03/30/21 08:29 Dose: 1 tab Documented by: Simethicone (Simethicone 80 Mg Chew) 80 mg PO Q6H PRN PRN Reason: Gas or Constipation Stop: 04/26/21 11:19 Sodium Chloride (Sodium Chlor 7% 4 Ml Neb) 4 ml NEB BIDR [facility] Stop: 04/27/21 12:59 Last Admin: 03/30/21 07:30 Dose: 4 ml Documented by: Tramadol HCl (Tramadol Hcl 50 Mg Tablet) 50 mg PO BIDM [facility] Stop: 04/25/21 16:59 Last Admin: 03/30/21 08:38 Dose: 50 mg Documented by:
[2021-03-30] MEDS: CALCIUM 600MG + VIT D 400 IU TAB PO SCH (12:43)
[2021-03-30] MEDS: CETIRIZINE HCL 10 MG TABLET PO SCH (12:43)
[2021-03-30 14:21] LABS: Influenza A virus by PCR Negative (Neg); Influenza B virus by PCR Negative (Neg); RSV by PCR Negative (Neg); SARS CoV2 RNA(COVID-19) InHosp NEGATIVE (Negative)
[2021-03-30] MEDS ORDERED: PIPERACILL/TAZOBAC CONSULT ACTIVE PRN (14:27)
[2021-03-30] MEDS ORDERED: PIPERACILLIN/TAZOBACTAM 4.5 GM in DEXTROSE 5% 100 ML IV ONE (15:00)
[2021-03-30] MEDS ORDERED: methylPREDNISolone 40 MG in SYRINGE 0 ML IV SCH (17:00)
[2021-03-30] MEDS: levoFLOXacin 750 MG TAB PO SCH (18:04)
[2021-03-30] MEDS: methylPREDNISolone 40 MG in SYRINGE 0 ML IV SCH (18:05)
[2021-03-30] MEDS: PIPERACILLIN/TAZOBACTAM 3.375 GM in DEXTROSE 5% 100 ML IV SCH (21:14)
[2021-03-30] MEDS: MELATONIN 3 MG TAB PO SCH (21:23)
[2021-03-30] MEDS: ATORVASTATIN 40 MG TAB PO SCH (21:25)
[2021-03-30] MEDS: MONTELUKAST SODIUM 10 MG TABLET PO SCH (21:26)
[2021-03-31] MEDS: IPRATROPIUM BROMIDE NEB SOLN 0.02% 2.5 ML VIAL INH SCH ×4 (00:02→19:56)
[2021-03-31] MEDS: PIPERACILLIN/TAZOBACTAM 3.375 GM in DEXTROSE 5% 100 ML IV SCH ×3 (05:13→20:42)
[2021-03-31] MEDS: PANTOprazole 40 MG TAB PO SCH (05:13)
[2021-03-31] MEDS: HEPARIN SOD 5,000 UNIT/0.5 ML VIAL SQ SCH ×3 (05:14→20:48)
[2021-03-31] MEDS: SODIUM CHLOR 7% 4 ML NEB NEB SCH ×2 (08:04→19:56)
[2021-03-31] MEDS: LEVALBUTEROL 1.25MG/0.5ML NEB INH SCH ×4 (08:04→19:55)
[2021-03-31] MEDS: INSULIN HUMAN NPH SC SCH (09:14)
[2021-03-31] MEDS: methylPREDNISolone 40 MG in SYRINGE 0 ML IV SCH (09:15)
[2021-03-31] MEDS: METOPROLOL TARTRATE 50 MG TAB PO SCH ×3 (09:15→16:39)
[2021-03-31] MEDS: GABAPENTIN 300 MG CAP PO SCH ×3 (09:16→16:39)
[2021-03-31] MEDS: BENZONATATE 100 MG CAPSULE PO SCH ×4 (09:16→20:53)
[2021-03-31] MEDS: CEROVITE ADV FORMULA TAB PO SCH ×2 (09:16→09:47)
[2021-03-31] MEDS: DOCUSATE SODIUM/SENNA 50/8.6MG TAB PO SCH ×2 (09:17→09:46)
[2021-03-31] MEDS: DULoxetine HCL 60 MG CAP PO SCH ×2 (09:17→09:47)
[2021-03-31] MEDS: LOSARTAN POTASSIUM 50 MG TAB PO SCH ×3 (09:17→20:54)
[2021-03-31] MEDS: guaiFENesin 600 MG TABCR PO SCH ×3 (09:17→20:54)
[2021-03-31] MEDS: FUROSEMIDE 20 MG TAB PO SCH ×2 (09:17→09:47)
[2021-03-31] MEDS: ISOSORBIDE MONO EXTENDED REL 60 MG TABCR PO SCH ×2 (09:18→09:47)
[2021-03-31] MEDS: ASPIRIN 81 MG ECTAB PO SCH ×3 (09:18→20:51)
[2021-03-31] MEDS: amLODIPine BESYLATE 5 MG TAB PO SCH ×2 (09:19→09:46)
[2021-03-31] MEDS: FLUTICASONE/VILANTEROL 200/25MCG 14 PUFFS/INHALER INH SCH (09:24)
[2021-03-31] MEDS: INSULIN ASPART PER UNIT SC SCH ×4 (09:26→21:03)
[2021-03-31] MEDS: traMADol HCL 50 MG TABLET PO SCH (09:46)
[2021-03-31] MEDS: POLYETHYLENE (MIRALAX) 17 GM PACK PO SCH (09:47)
[2021-03-31 10:35] LABS: Base Excess ABG 5.6 mEq/L (-9-1.8); HCO3 ABG 31 mmol/L (19-24); PCO2 ABG 47 mmHg (35-46); PO2 ABG 72 mmHg (80-95); pH ABG 7.44 (7.35-7.45)
--- NOTE | 2021-03-31 10:56 | Hospitalist Progress Note ---
Date of Service March 31, 2021 Assessment & Plan (1) Acute exacerbation of chronic obstructive pulmonary disease: (2) Asthma: (3) Acute respiratory failure with hypoxia: Plan: This is an 85-year-old female with PMHx of Asthma/COPD, DMII, HLD, Nocturnal hypoxia, HTN, OJEDA cirrhosis, CAD, Urinary incontinence, Anxiety, Lumbar DDD, Osteoporosis who presented to ED on 03/26/2021 secondary to worsening shortness of breath, cough and increased pedal production. She was diagnosed with acute respiratory failure with hypoxia secondary to bronchitis. Increased O2 requirements on 03/30 Repeat CXR: Interval development of moderate bilateral airspace opacities suggestive of viral pneumonia. Wheezing continues to improve IV solumedrol resumed BID in favor of oral prednisone Nebs every 6 hours hypertonic saline BI Incentive spirometry White blood cell count increasing, likely in setting of Solu-Medrol COVID and BIOfire negative D/C oral doxy Started IV zosyn, oral levaquin on 03/30 MRSA Swab negative D/C Levaquin 03/31 04/07 to increased confusion, drowsiness Metabolic Encephalopathy likely multifactorial in setting of PNA, possible reaction to levaquin obtain abg, cbc, cmp, mag, procal will d/c oral levaquin hold scheduled tramadol Pt re evaluated at 1430 on03/31/21 she is more alert, O2 99% on 2 L currently undergoing chest PT pt is very angry, per staff mean possibly due to IV steroid, will reduce to once daily dosing (4) Hypomagnesemia: Plan: Repleted Magnesium normal (5) Hypertension: Plan: cont metoprolol tartrate 50 mg BID, losartan 50 mg daily, amlodipine 10 mg, imdur, and lasix As needed hydralazine Losartan increased to bid on 03/30 (6) Dyslipidemia: Plan: Continue statin therapy (7) Type 2 diabetes mellitus: Plan: A1c 6.8, hold Metformin Glycemic pharmacy on board, appreciate their assistance Blood Sugar stable (8) Diabetic peripheral neuropathy: Plan: Cont gabapentin (9) GERD (gastroesophageal reflux disease): Plan: Cont omeprazole Plan: DVT prophylaxis: SCD/TEDS, add SQ Heparin Dispo: PT/OT recommending SNF when medically stable, pt refusing and wishes to return to apartment, given reduced care givers at home it is recommended she [facility], currently not medically stable for d/c DNR/DNI PCP: Dena Lira MD Pt was seen and examined in collaboration with Dr. Turner, please see addendum The chart was completed utilizing [employer] Speech voice recognition software. Grammatical errors, random word insertions, pronoun errors, and incomplete sentences are an occasional consequence of this system due to software limitations, ambient noise, and hardware issues. Any formal questions or concerns about the content, text, or information contained within the body of this dictation should be directly addressed to the provider for clarification. Admission and Anticipated Discharge Date Admission Date: March 26, 2021 Supervising Physician Co-Signing Physician Notes Pt was seen and examined. Agreed with Wendi FELDMAN exam, assessment and plan. Patient seems to be a little more drowsy today. She was able to keep her eyes open and answered basic questions She said that her breathing is ok Denies any SOB or chest pain Exam A little bit drowsy normal rate, regular rhythm, no murmurs Coarse breath sound non distended, soft, nontender no bipedal edema, erythema, warmth no neuro deficits ASSESSMENT AND PLAN Acute on chronic hypoxic respiratory failure COPD exacerbation, Bilateral pneumonia Chest x-ray showing bilateral infiltrates Repeat Covid screen negative Will discontinue Levaquin due to confusion and dwonsiness Doxycycline was discontinued Continue IV Zosyn and steroid Nebs every 6 hours Continue monitor closely Please refer to Wendi FELDMAN documentation for other problems. MD Yue Subjective Patient was seen and examined in room 307. Patient is more drowsy today. Does arouse to verbal stimulation. She is able to tell me her name. She appears more confused. She denies feeling short of breath. ROS limited given current cognition. Review of Systems Review of Systems: Unobtainable due to cognitive status Physical Exam Physical Exam: Gen: Elderly, female, sitting up in bed, drowsy, arousable to verbal and tactile stimulation A&O x1 HEENT: Normocephalic, atraumatic, conjunctivae moist, sclerae anicteric, mucous membranes moist. Lung: Bilateral expiratory wheeze and rhonchi throughout, on 3 L of O2 via NC Heart: Regular rate, regular rhythm, no murmurs, rubs, or gallops Abdomen: Soft, NT, ND +BS x 4 Extremities: No edema Skin: Warm, no rash, negative turgor. Results & Data Results & Data ([facility]) Vital Signs (Past 12 Hours) Vital Signs Temp Pulse Resp BP Pulse Ox 03/31/21 08:05 88 20 97 03/31/21 08:03 36.6 C 87 16 157/60 H 100 Laboratory Results BMP 03/30/21 10:29 Sodium 140 Potassium 4.1 Chloride 103 Carbon Dioxide 32 BUN 33 H Creatinine 0.80 Glucose 201 H Calcium 8.4 L Diagnostic Findings CXR: IMPRESSION: Interval development of moderate bilateral airspace opacities suggestive of viral pneumonia. Medications Administered Current Inpatient Medications Acetaminophen (Acetaminophen 325 Mg Tab) 650 mg PO Q4H PRN PRN Reason: Moderate Pain Stop: 04/25/21 10:19 Last Admin: 03/27/21 14:33 Dose: 650 mg Documented by: Albuterol (Albuterol Hfa 8 Gm Inhaler) 2 puffs INH QID PRN PRN Reason: Shortness Of Breath Stop: 04/25/21 10:42 Amlodipine Besylate (Amlodipine Besylate 5 Mg Tab) 10 mg PO QAM [facility] Stop: 04/25/21 10:42 Last Admin: 03/31/21 09:46 Dose: Not Given Documented by: Aspirin (Aspirin 81 Mg Ectab) 81 mg PO BID [facility] Stop: 04/25/21 10:42 Last Admin: 03/31/21 09:46 Dose: Not Given Documented by: Atorvastatin Calcium (Atorvastatin 40 Mg Tab) 40 mg PO HS [facility] Stop: 04/25/21 20:59 Last Admin: 03/30/21 21:25 Dose: 40 mg Documented by: Benzonatate (Benzonatate 100 Mg Capsule) 100 mg PO TID [facility] Stop: 04/25/21 10:19 Last Admin: 03/31/21 09:46 Dose: Not Given Documented by: Calamine/Phenol (Menthol-Zinc Oxide 360 Appln/120 Gm Tube) 1 appln EXT QID PRN PRN Reason: redness Stop: 04/25/21 10:42 Calcium Carbonate (Calcium Carbonate 500 Mg Chewable Tab) 1,500 mg PO QID PRN PRN Reason: Indigestion Stop: 04/26/21 11:19 Cetirizine HCl (Cetirizine Hcl 10 Mg Tablet) 10 mg PO QDL [facility] Stop: 04/25/21 11:29 Last Admin: 03/30/21 12:43 Dose: 10 mg Documented by: Dextrose (Dextrose 50% 50 Ml Syringe) 25 - 50 ml IV UD PRN; Protocol PRN Reason: Hypoglycemia Protocol Stop: 04/25/21 10:42 Docusate Sodium (Docusate Sodium 100 Mg Cap) 100 mg PO BID PRN PRN Reason: Constipation Stop: 04/25/21 10:42 Last Admin: 03/29/21 20:48 Dose: 100 mg Documented by: Duloxetine HCl (Duloxetine Hcl 60 Mg Cap) 60 mg PO QAM [facility] Stop: 04/25/21 10:42 Last Admin: 03/31/21 09:47 Dose: Not Given Documented by: Fluticasone/Vilanterol (Fluticasone/Vilanterol 200/25mcg 14 Puffs/Inhaler) 1 puffs INH DAILY [facility] Stop: 04/25/21 11:59 Last Admin: 03/31/21 09:24 Dose: 1 puffs Documented by: Furosemide (Furosemide 20 Mg Tab) 20 mg PO QAM [facility] Stop: 04/25/21 10:42 Last Admin: 03/31/21 09:47 Dose: Not Given Documented by: Gabapentin (Gabapentin 300 Mg Cap) 300 mg PO BIDM [facility] Stop: 04/25/21 16:59 Last Admin: 03/31/21 09:46 Dose: Not Given Documented by: Glucagon (Glucagon For Inj 1 Mg Vial) 1 mg SQ UD PRN; Protocol PRN Reason: Hypoglycemia Protocol Stop: 04/25/21 10:42 Glucose (Glucose 10 Tabs/Tube) 4 - 8 tabs PO UD PRN; Protocol PRN Reason: Hypoglycemia Protocol Stop: 04/25/21 10:42 Glucose (Glucose 40% Gel 15 Gm Tube) 15 - 30 gm PO UD PRN; Protocol PRN Reason: Hypoglycemia Protocol Stop: 04/25/21 10:42 Guaifenesin (Guaifenesin 600 Mg Tabcr) 1,200 mg PO Q12 [facility] Stop: 04/25/21 10:19 Last Admin: 03/31/21 09:47 Dose: Not Given Documented by: Heparin Sodium (Porcine) (Heparin Sod 5,000 Unit/0.5 Ml Vial) 5,000 units SQ Q8 [facility] Stop: 04/28/21 13:59 Last Admin: 03/31/21 05:14 Dose: 5,000 units Documented by: Hydralazine HCl (Hydralazine Hcl 20 Mg/Ml Vial) 5 mg IV Q6H PRN PRN Reason: Blood Pressure - High Stop: 04/25/21 19:29 Piperacillin Sod/Tazobactam (Sod 3.375 gm/ Dextrose) 115 mls @ 28.75 mls/hr IV Q8H [facility]; Protocol Stop: 04/06/21 19:59 Last Admin: 03/31/21 05:13 Dose: 28.8 mls/hr Documented by: Methylprednisolone 40 mg/ (Syringe) 0.64 mls @ 1.5 mls/min IV BID17 [facility] Stop: 04/29/21 16:59 Last Admin: 03/31/21 09:15 Dose: 1.5 mls/min Documented by: Insulin Aspart (Insulin Aspart Per Unit) 0 units SC ACHS [facility] Stop: 04/25/21 11:29 Last Admin: 03/31/21 09:26 Dose: Not Given Documented by: Insulin Human NPH (Insulin Human Nph) 30 units SC DAILY [facility] Stop: 04/29/21 08:59 Last Admin: 03/31/21 09:14 Dose: 30 units Documented by: Ipratropium [place] (Ipratropium [place] Neb Soln 0.02% 2.5 Ml Vial) 0.5 mg INH Q6R [facility] Stop: 04/25/21 18:59 Last Admin: 03/31/21 08:04 Dose: 0.5 mg Documented by: Isosorbide Mononitrate (Isosorbide [place] Extended Rel 60 Mg Tabcr) 60 mg PO QAM [facility] Stop: 04/25/21 10:42 Last Admin: 03/31/21 09:47 Dose: Not Given Documented by: Levalbuterol HCl (Levalbuterol 1.25mg/0.5ml Neb) 1.25 mg INH Q6R [facility] Stop: 04/25/21 18:59 Last Admin: 03/31/21 08:04 Dose: 1.25 mg Documented by: Levofloxacin (Levofloxacin 750 Mg Tab) 750 mg PO DAILY@1100 [facility] Stop: 04/06/21 14:34 Last Admin: 03/30/21 18:04 Dose: 750 mg Documented by: Losartan Potassium (Losartan Potassium 50 Mg Tab) 50 mg PO BID [facility] Stop: 04/29/21 20:59 Last Admin: 03/31/21 09:47 Dose: Not Given Documented by: Meclizine HCl (Meclizine 12.5 Mg Tab) 12.5 mg PO Q6H PRN PRN Reason: Vertigo Stop: 04/25/21 15:57 Melatonin (Melatonin 3 Mg Tab) 9 mg PO HS [facility] Stop: 04/25/21 20:59 Last Admin: 03/30/21 21:23 Dose: 9 mg Documented by: Metoprolol Tartrate (Metoprolol Tartrate 50 Mg Tab) 50 mg PO BIDM [facility] Stop: 04/25/21 16:59 Last Admin: 03/31/21 09:46 Dose: Not Given Documented by: Miscellaneous (Carbohydrates For Hypoglycemia ) 15 - 30 gm PO UD PRN PRN Reason: Hypoglycemia Protocol Stop: 04/25/21 10:42 Miscellaneous Information (Pharmacy Glycemic Mgmt Consult) 1 ea N/A UD PRN PRN Reason: Consult Stop: 04/26/21 15:08 Miscellaneous Information (Piperacill/Tazobac Consult Active) 1 ea N/A UD PRN PRN Reason: Consult Stop: 04/29/21 14:26 Montelukast Sodium (Montelukast Sodium 10 Mg Tablet) 10 mg PO HS [facility] Stop: 04/25/21 20:59 Last Admin: 03/30/21 21:26 Dose: 10 mg Documented by: Multivitamins/Minerals (Calcium 600mg + Vit D 400 Iu Tab) 1 tab PO QDL [facility] Stop: 04/25/21 11:29 Last Admin: 03/30/21 12:43 Dose: 1 tab Documented by: Multivitamins/Minerals (Cerovite Adv Formula Tab) 1 tab PO QAM [facility] Stop: 04/25/21 10:42 Last Admin: 03/31/21 09:47 Dose: Not Given Documented by: Nitroglycerin (Nitroglycerin Sl 0.4 Mg/Tab Tab) 0.4 mg SL Q5M PRN PRN Reason: Chest Pain Stop: 04/25/21 10:42 Nystatin (Nystatin Powder 15gm Btl) 1 appln EXT PRN PRN PRN Reason: Affected Skin Folds Stop: 04/25/21 15:27 Ondansetron HCl (Ondansetron Inj 2 Mg/Ml 2 Ml Vial) 4 mg IV Q4H PRN PRN Reason: Nausea And Vomiting Stop: 04/25/21 10:19 Last Admin: 03/27/21 07:27 Dose: 4 mg Documented by: Pantoprazole Sodium (Pantoprazole 40 Mg Tab) 40 mg PO DAILYBB [facility] Stop: 04/26/21 06:29 Last Admin: 03/31/21 05:13 Dose: 40 mg Documented by: Polyethylene Glycol (Polyethylene (Miralax) 17 Gm Pack) 17 gm PO DAILY [facility] Stop: 04/25/21 10:42 Last Admin: 03/31/21 09:47 Dose: Not Given Documented by: Senna/Docusate Sodium (Docusate Sodium/Senna 50/8.6mg Tab) 1 tab PO QAM [facility] Stop: 04/28/21 09:59 Last Admin: 03/31/21 09:46 Dose: Not Given Documented by: Simethicone (Simethicone 80 Mg Chew) 80 mg PO Q6H PRN PRN Reason: Gas or Constipation Stop: 04/26/21 11:19 Sodium Chloride (Sodium Chlor 7% 4 Ml Neb) 4 ml NEB BIDR [facility] Stop: 04/27/21 12:59 Last Admin: 03/31/21 08:04 Dose: 4 ml Documented by: Tramadol HCl (Tramadol Hcl 50 Mg Tablet) 50 mg PO BIDM [facility] Stop: 04/25/21 16:59 Last Admin: 03/31/21 09:46 Dose: Not Given Documented by:
[2021-03-31] MEDS: levoFLOXacin 750 MG TAB PO SCH (11:05)
[2021-03-31] MEDS: CETIRIZINE HCL 10 MG TABLET PO SCH (11:05)
[2021-03-31] MEDS: CALCIUM 600MG + VIT D 400 IU TAB PO SCH (11:05)
[2021-03-31 11:15] LABS: Allen Test Pos (Pos)
[2021-03-31 11:21] LABS: Basophils # (auto) 0.01 K/uL (0-0.2); Basophils % (auto) 0.1 %; Hematocrit (blood only) 33.6 % (37-47); Hemoglobin 10.2 g/dL (12.0-16.0); Immature Granulocytes # (auto) 0.11 K/uL (0.00-0.02); Lymphocytes # (auto) 1.12 K/uL (1.2-3.4); Lymphocytes % (auto) 10.2 %; Mean Corpuscular Hemoglobin 27.6 pg (25-34); Mean Corpuscular Volume 90.8 fL (80-100); Monocytes % (auto) 6.4 %; Neutrophils # (auto) 8.99 K/uL (1.4-6.5); Neutrophils % (auto) 82.3 %; Platelet Count 148 K/uL (130-400); RDW Coefficient of Variation 15.6 % (11.5-14.5); RDW Standard Deviation 52.4 fL (36.4-46.3); White Blood Count 10.93 K/uL (4.8-10.8)
[2021-03-31 11:22] LABS: Mean Corpuscular Hgb Conc 30.4 g/dL (32-36)
[2021-03-31 11:49] LABS: Albumin Globulin Ratio 0.8 (0.9-2); BUN Creatinine Ratio 35.9 (10-20); Bilirubin,Total 0.4 mg/dl (0.2-1.0); Calcium 8.7 mg/dl (8.5-10.1); Creatinine Clr Calc Pharmacy 49.8 ml/min; Est GFR (African American) 66.7 ml/min; Est GFR (Non-African American) 57.6 ml/min; Globulin 3.6 gm/dl (2.5-4.0); Magnesium 1.7 mg/dl (1.7-2.4); Total Protein 6.6 gm/dl (6.0-8.3)
--- NOTE | 2021-03-31 12:58 | Pharmacy Report ---
Pharmacy Glycemic Short Note 2 - Date of Service March 31, 2021 - Glycemic Short BSG Results (Last 24 hours): 03/30/21 03/30/21 03/31/21 16:49 20:44 07:59 Glucose POC Glucose 204 H 211 H 123 H 03/31/21 03/31/21 11:10 12:11 Glucose 136 H POC Glucose 140 H OUTPATIENT ANTIDIABETIC REGIMEN: * Metformin 1000mg PO qAM * HbA1c: 6.8% (03/27/21) ASSESSMENT: 03/31/21 * Patient switched back to IV Solu-Medrol 40mg IV twice daily last evening, resulting in elevated blood sugars - tighten CF/CR * Continue NPH * Fasting BSG 123mg/dl 03/30/21 * Patient's BSGs yesterday were [phone]. * Patient received 55 units of insulin (30 units of NPH plus 25 units of Novolog). * Fasting today is 85 mg/dL. * Starting prednisone 40 mg PO daily. Continue NPH 30 units daily and Novolog. Baseline * Mr Hernandez is an 85yo diabetic female admitted 03/26 with COPD/asthma exac. * Pt has been receiving IV SoluMedrol, leading to steroid-induced hyperglycemia. Dose reduced this morning from SoluMedrol 40mg q8h --> q12h. * NPH added to help cover while steroids on board. * Expect that insulin needs will decrease as steroids taper. Pharmacy will continue to follow and adjust as needed. PLAN FOR INPATIENT GLYCEMIC CONTROL: * Hold outpatient oral diabetes medications * Basal insulin * NPH 30 units (~0.35units/kg) SQ qAM * Bolus insulin * NovoLog per scale ACHS or Q6hrs while NPO * Goal Range: Low 110 mg/dL - High 140 mg/dL * Correction Factor: 25 mg/dL/unit * Nutritional / Prandial insulin per carb ratio of 1 unit per 5 grams CHO consumed PLAN FOR DISCHARGE: * A1c: 6.8% * This indicates excellent glycemic control as an outpt. Expect that pt may resume home regimen on discharge, as long as no contraindications are present. * If patient will be discharged with ongoing steroids, she may require some additional coverage.
[2021-03-31] MEDS ORDERED: busPIRone 5 MG TAB PO PRN (15:16)
[2021-03-31] MEDS: MENTHOL-ZINC OXIDE 360 APPLN/120 GM TUBE EXT PRN (17:47)
[2021-03-31] MEDS: ATORVASTATIN 40 MG TAB PO SCH (20:52)
[2021-03-31] MEDS: MONTELUKAST SODIUM 10 MG TABLET PO SCH (20:55)
[2021-03-31] MEDS: MELATONIN 3 MG TAB PO SCH (20:55)
[2021-03-31] MEDS: DICLOFENAC SOD 1% GEL 100 GM TUBE EXT SCH (20:55)
[2021-04-01] MEDS: IPRATROPIUM BROMIDE NEB SOLN 0.02% 2.5 ML VIAL INH SCH ×4 (00:10→19:25)
[2021-04-01] MEDS: LEVALBUTEROL 1.25MG/0.5ML NEB INH SCH ×4 (00:10→19:25)
[2021-04-01] MEDS: PIPERACILLIN/TAZOBACTAM 3.375 GM in DEXTROSE 5% 100 ML IV SCH ×3 (04:52→19:44)
[2021-04-01] MEDS: HEPARIN SOD 5,000 UNIT/0.5 ML VIAL SQ SCH ×3 (05:38→20:48)
[2021-04-01] MEDS: PANTOprazole 40 MG TAB PO SCH (06:44)
[2021-04-01] MEDS: SODIUM CHLOR 7% 4 ML NEB NEB SCH ×2 (07:04→19:19)
[2021-04-01 08:18] LABS: Basophils # (auto) 0.01 K/uL (0-0.2); Basophils % (auto) 0.1 %; Eosinophils # (auto) 0.02 K/uL (0-0.5); Eosinophils % (auto) 0.2 %; Hemoglobin 10.4 g/dL (12.0-16.0); Immature Granulocytes # (auto) 0.14 K/uL (0.00-0.02); Immature Granulocytes % (auto) 1.2 %; Lymphocytes # (auto) 2.39 K/uL (1.2-3.4); Lymphocytes % (auto) 20.6 %; Mean Corpuscular Hemoglobin 27.8 pg (25-34); Mean Corpuscular Hgb Conc 30.6 g/dL (32-36); Mean Corpuscular Volume 90.9 fL (80-100); Mean Platelet Volume 10.4 fL (7.4-10.4); Monocytes # (auto) 0.96 K/uL (0.11-0.59); Monocytes % (auto) 8.3 %; Neutrophils # (auto) 8.08 K/uL (1.4-6.5); Neutrophils % (auto) 69.6 %; Platelet Count 168 K/uL (130-400); RDW Coefficient of Variation 15.8 % (11.5-14.5); RDW Standard Deviation 52.9 fL (36.4-46.3); Red Blood Count 3.74 M/uL (4.2-5.4)
[2021-04-01 08:41] LABS: Calcium 8.5 mg/dl (8.5-10.1); Creatinine Clr Calc Pharmacy 45.8 ml/min; Est GFR (African American) 60.3 ml/min; Est GFR (Non-African American) 52.1 ml/min; Potassium 3.8 mmol/L (3.5-5.1)
--- NOTE | 2021-04-01 08:45 | Pharmacy Report ---
Pharmacy Glycemic Short Note 2 - Date of Service April 01, 2021 - Glycemic Short BSG Results (Last 24 hours): 03/31/21 03/31/21 03/31/21 11:10 12:11 17:04 Glucose 136 H POC Glucose 140 H 216 H 03/31/21 04/01/21 04/01/21 20:32 08:00 08:07 Glucose 120 H POC Glucose 132 H 124 H OUTPATIENT ANTIDIABETIC REGIMEN: * Metformin 1000mg PO qAM * HbA1c: 6.8% (03/27/21) ASSESSMENT: 04/01/21 * Solu-Medrol decreased to once daily today, decrease NPH slightly, continue tight CF/CR as patient BSG when above goal yesterday prior to dinner to 216mg/dl. All other BSGs at goal, no further changes at this time. 03/31/21 * Patient switched back to IV Solu-Medrol 40mg IV twice daily last evening, resulting in elevated blood sugars - tighten CF/CR * Continue NPH * Fasting BSG 123mg/dl 03/30/21 * Patient's BSGs yesterday were [phone]. * Patient received 55 units of insulin (30 units of NPH plus 25 units of Novolog). * Fasting today is 85 mg/dL. * Starting prednisone 40 mg PO daily. Continue NPH 30 units daily and Novolog. Baseline * Mr Hernandez is an 85yo diabetic female admitted 03/26 with COPD/asthma exac. * Pt has been receiving IV SoluMedrol, leading to steroid-induced hyperglycemia. Dose reduced this morning from SoluMedrol 40mg q8h --> q12h. * NPH added to help cover while steroids on board. * Expect that insulin needs will decrease as steroids taper. Pharmacy will continue to follow and adjust as needed. PLAN FOR INPATIENT GLYCEMIC CONTROL: * Hold outpatient oral diabetes medications * Basal insulin * NPH 25 units (~0.3 units/kg) SQ qAM * Bolus insulin * NovoLog per scale ACHS or Q6hrs while NPO * Goal Range: Low 110 mg/dL - High 140 mg/dL * Correction Factor: 25 mg/dL/unit * Nutritional / Prandial insulin per carb ratio of 1 unit per 5 grams CHO consumed PLAN FOR DISCHARGE: * A1c: 6.8% * This indicates excellent glycemic control as an outpt. Expect that pt may resume home regimen on discharge, as long as no contraindications are present. * If patient will be discharged with ongoing steroids, she may require some additional coverage.
[2021-04-01] MEDS: INSULIN ASPART PER UNIT SC SCH ×4 (08:49→20:53)
[2021-04-01] MEDS: INSULIN HUMAN NPH SC SCH (08:49)
[2021-04-01] MEDS: FLUTICASONE/VILANTEROL 200/25MCG 14 PUFFS/INHALER INH SCH (08:50)
[2021-04-01] MEDS: guaiFENesin 600 MG TABCR PO SCH ×2 (08:51→20:46)
[2021-04-01] MEDS: LOSARTAN POTASSIUM 50 MG TAB PO SCH ×2 (08:51→20:47)
[2021-04-01] MEDS: MENTHOL-ZINC OXIDE 360 APPLN/120 GM TUBE EXT PRN (08:51)
[2021-04-01] MEDS: methylPREDNISolone 40 MG in SYRINGE 0 ML IV SCH (08:52)
[2021-04-01] MEDS: amLODIPine BESYLATE 5 MG TAB PO SCH (08:52)
[2021-04-01] MEDS: ISOSORBIDE MONO EXTENDED REL 60 MG TABCR PO SCH (08:53)
[2021-04-01] MEDS: DOCUSATE SODIUM/SENNA 50/8.6MG TAB PO SCH (08:53)
[2021-04-01] MEDS: METOPROLOL TARTRATE 50 MG TAB PO SCH ×2 (08:53→16:44)
[2021-04-01] MEDS: BENZONATATE 100 MG CAPSULE PO SCH ×3 (08:54→20:47)
[2021-04-01] MEDS: ASPIRIN 81 MG ECTAB PO SCH ×2 (08:54→20:45)
[2021-04-01] MEDS: DULoxetine HCL 60 MG CAP PO SCH (08:54)
[2021-04-01] MEDS: FUROSEMIDE 20 MG TAB PO SCH (08:55)
[2021-04-01] MEDS: CEROVITE ADV FORMULA TAB PO SCH (08:55)
[2021-04-01] MEDS: GABAPENTIN 300 MG CAP PO SCH ×2 (08:55→16:44)
[2021-04-01] MEDS: POLYETHYLENE (MIRALAX) 17 GM PACK PO SCH (08:56)
[2021-04-01] MEDS: DICLOFENAC SOD 1% GEL 100 GM TUBE EXT SCH ×3 (08:56→20:46)
[2021-04-01] MEDS: CETIRIZINE HCL 10 MG TABLET PO SCH (12:16)
[2021-04-01] MEDS: CALCIUM 600MG + VIT D 400 IU TAB PO SCH (12:16)
--- NOTE | 2021-04-01 15:30 | Hospitalist Progress Note ---
Date of Service April 01, 2021 Assessment & Plan (1) Acute exacerbation of chronic obstructive pulmonary disease: (2) Asthma: (3) Acute respiratory failure with hypoxia: Plan: This is an 85-year-old female with PMHx of Asthma/COPD, DMII, HLD, Nocturnal hypoxia, HTN, OJEDA cirrhosis, CAD, Urinary incontinence, Anxiety, Lumbar DDD, Osteoporosis who presented to ED on 03/26/2021 secondary to worsening shortness of breath, cough and increased pedal production. She was diagnosed with acute respiratory failure with hypoxia secondary to bronchitis. Increased O2 requirements on 03/30 Repeat CXR: Interval development of moderate bilateral airspace opacities sugg estive of viral pneumonia Decreased steroids to once daily due to agitation yesterday, with improved mentation - continue IV solu-medrol 40mg daily Nebs Q6H, hypertonic saline bilaterally, incentive spirometry Mild leukocytosis in setting of steroids, stable COVID and BIOfire negative Continue IV zosyn, levaquin discontinued on 03/31 due to increased confusion, drowsiness, MRSA swab negative Metabolic Encephalopathy likely multifactorial in setting of PNA, possible reaction to levaquin -> resolved with reduced steroids, d/c of Levaquin and tramadol (4) Hypomagnesemia: Plan: Repleted Magnesium normal (5) Hypertension: Plan: Continue metoprolol tartrate 50 mg BID, losartan 50 mg daily, amlodipine 10 mg, imdur, and lasix As needed hydralazine Losartan increased to bid on 03/30 (6) Dyslipidemia: Plan: Continue statin therapy (7) Type 2 diabetes mellitus: Plan: A1c 6.8, hold Metformin Glycemic pharmacy on board, appreciate their assistance Blood Sugar stable (8) Diabetic peripheral neuropathy: Plan: Cont gabapentin (9) GERD (gastroesophageal reflux disease): Plan: Cont omeprazole Plan: DVT prophylaxis: SCD/TEDS, added SQ Heparin Dispo: PT/OT recommending SNF when medically stable, pt refusing and wishes to return to apartment, given reduced care givers at home it is recommended she go to [facility] SNF, currently not medically stable for d/c DNR/DNI PCP: Dena Lira MD Pt was seen and examined in collaboration with Dr. Turner, please see addendum Admission and Anticipated Discharge Date Admission Date: March 26, 2021 Supervising Physician Co-Signing Physician Notes Pt was seen and examined. Agreed with Wendi FELDMAN exam, assessment and plan. Patient is looking much better today compared to yesterday She said that her breathing is much better Denies any SOB or chest pain Exam No acute distress normal rate, regular rhythm, no murmurs Coarse breath sound non distended, soft, nontender no bipedal edema, erythema, warmth no neuro deficits ASSESSMENT AND PLAN Acute on chronic hypoxic respiratory failure COPD exacerbation, Bilateral pneumonia Chest x-ray showing bilateral infiltrates Repeat Covid screen negative Will discontinue Levaquin due to confusion and dwonsiness Doxycycline and Levaquin were discontinued Continue IV Zosyn and steroid Nebs every 6 hours Continue monitor closely Please refer to Sharda FELDMAN documentation for other problems. MD Yue Subjective Patient was seen and examined in room 307. Feeling better today, more alert and communicative during exam. No new complaints overnight. Was using incentive spirometry this morning. No F/C, chest pain, SOB, N/V, abdominal pain, dysuria. Had bowel movement this morning. Review of Systems Review of Systems: At least ten systems reviewed and negative except as noted in the HPI. Physical Exam Physical Exam: Gen: Elderly, female, lying in bed resting but awakens to answer questions appropriately A&Ox2 HEENT: Normocephalic, atraumatic, conjunctivae moist, sclerae anicteric, mucous membranes moist. Lung: Bilateral expiratory wheeze and rhonchi throughout, on 3 L of O2 via NC Heart: Regular rate, regular rhythm, no murmurs, rubs, or gallops Abdomen: Soft, NT, ND +BS x 4 Extremities: No edema Skin: Warm, no rash Results & Data Results & Data ([facility]) Vital Signs (Past 12 Hours) Vital Signs Temp Pulse Resp BP Pulse Ox 04/01/21 14:29 36.8 C 78 16 142/74 H 94 04/01/21 12:47 78 18 94 04/01/21 07:40 37.0 C 85 16 93 04/01/21 07:04 83 16 95 Laboratory Results Short CBC 04/01/21 Range/Units 08:07 WBC 11.60 H (4.8-10.8) K/uL Hgb 10.4 L (12.0-16.0) g/dL Hct 34.0 L (37-47) % Plt Count 168 (130-400) K/uL BMP 04/01/21 08:07 Sodium 142 Potassium 3.8 Chloride 104 Carbon Dioxide 33 H BUN 28 H Creatinine 1.00 Glucose 120 H Calcium 8.5 Diagnostic Findings Chest X-Ray 03/26/21 07:04 XR chest 1V portable CLINICAL HISTORY: cough, hypoxia. Nonsmoker COMPARISON STUDY: 10/21/2020 TECHNIQUE: 1 view of the chest FINDINGS: Single frontal view of the chest demonstrates the cardiomediastinal silhouette to be within normal limits. There is a decreased inspiratory effort with elevation of the hemidiaphragms and crowding of the bronchovascular markings at the lung bases and centrally. The lungs are clear of alveolar opacities. There is no evidence for pleural effusion. There is no evidence for vascular congestion. There is no acute osseous pathology. IMPRESSION: There is a decreased inspiratory effort with otherwise no acute chest disease. ACT 112: Negative or not required by law. Electronically signed by: Sebastian Salmeron M.D. 03/26/2021 7:50 AM Venous Doppler Study 03/26/21 14:47 BILATERAL LOWER EXTREMITY VENOUS DOPPLER CLINICAL HISTORY: leg edema, pain r/o DVt COMPARISON STUDY: Left lower extremity venous Doppler ultrasound May 28, 2018. TECHNIQUE: Sonography of the deep venous system of the bilateral lower extremities was performed. Compression and augmentation were evaluated. FINDINGS: The bilateral common femoral, superficial femoral and popliteal veins were compressible. Augmentation was normal. Flow was shown within the deep calf vessels. IMPRESSION: No evidence of deep venous thrombus within the bilateral lower extremities. ACT 112: Negative or not required by law. Electronically signed by: Cristian Aguilar M.D. 03/26/2021 8:57 PM Chest X-Ray 03/30/21 10:21 XR chest 2V PA/lateral CLINICAL HISTORY: worsening hypoxia, cough COMPARISON STUDY: Chest CT January 26, 2021. Chest radiograph March 26, 2021. FINDINGS: Lung volumes are diminished. This is unchanged. There is no pneumothorax or pleural effusion. No evidence for pulmonary edema. Multifocal nodular airspace opacities have developed since prior examination. IMPRESSION: Interval development of moderate bilateral airspace opacities suggestive of viral pneumonia. ACT 112: Negative or not required by law. Electronically signed by: Cristian Aguilar M.D. 03/30/2021 11:19 AM
[2021-04-01] MEDS: ATORVASTATIN 40 MG TAB PO SCH (20:46)
[2021-04-01] MEDS: MONTELUKAST SODIUM 10 MG TABLET PO SCH (20:48)
[2021-04-01] MEDS: MELATONIN 3 MG TAB PO SCH (20:48)
[2021-04-02] MEDS: LEVALBUTEROL 1.25MG/0.5ML NEB INH SCH ×4 (00:10→19:12)
[2021-04-02] MEDS: IPRATROPIUM BROMIDE NEB SOLN 0.02% 2.5 ML VIAL INH SCH ×4 (00:11→19:12)
[2021-04-02] MEDS: PIPERACILLIN/TAZOBACTAM 3.375 GM in DEXTROSE 5% 100 ML IV SCH ×3 (04:27→20:28)
[2021-04-02] MEDS: HEPARIN SOD 5,000 UNIT/0.5 ML VIAL SQ SCH ×4 (06:08→20:36)
[2021-04-02] MEDS: PANTOprazole 40 MG TAB PO SCH (06:09)
[2021-04-02] MEDS: SODIUM CHLOR 7% 4 ML NEB NEB SCH (07:06)
[2021-04-02] MEDS: INSULIN ASPART PER UNIT SC SCH ×4 (10:08→20:39)
[2021-04-02] MEDS: GABAPENTIN 300 MG CAP PO SCH ×2 (10:21→16:52)
[2021-04-02] MEDS: methylPREDNISolone 40 MG in SYRINGE 0 ML IV SCH (10:21)
[2021-04-02] MEDS: BENZONATATE 100 MG CAPSULE PO SCH ×3 (10:21→20:29)
[2021-04-02] MEDS: CEROVITE ADV FORMULA TAB PO SCH (10:22)
[2021-04-02] MEDS: LOSARTAN POTASSIUM 50 MG TAB PO SCH ×2 (10:22→20:30)
[2021-04-02] MEDS: CALCIUM 600MG + VIT D 400 IU TAB PO SCH (10:22)
[2021-04-02] MEDS: CETIRIZINE HCL 10 MG TABLET PO SCH (10:22)
[2021-04-02] MEDS: ASPIRIN 81 MG ECTAB PO SCH ×2 (10:23→20:29)
[2021-04-02] MEDS: ISOSORBIDE MONO EXTENDED REL 60 MG TABCR PO SCH (10:23)
[2021-04-02] MEDS: DULoxetine HCL 60 MG CAP PO SCH (10:23)
[2021-04-02] MEDS: guaiFENesin 600 MG TABCR PO SCH ×2 (10:23→20:30)
[2021-04-02] MEDS: FUROSEMIDE 20 MG TAB PO SCH (10:23)
[2021-04-02] MEDS: amLODIPine BESYLATE 5 MG TAB PO SCH (10:24)
[2021-04-02] MEDS: METOPROLOL TARTRATE 50 MG TAB PO SCH ×2 (10:26→16:52)
[2021-04-02] MEDS: POLYETHYLENE (MIRALAX) 17 GM PACK PO SCH (10:27)
[2021-04-02] MEDS: DOCUSATE SODIUM/SENNA 50/8.6MG TAB PO SCH (10:27)
[2021-04-02] MEDS: FLUTICASONE/VILANTEROL 200/25MCG 14 PUFFS/INHALER INH SCH (10:36)
[2021-04-02] MEDS: INSULIN HUMAN NPH SC SCH (10:37)
[2021-04-02] MEDS: DICLOFENAC SOD 1% GEL 100 GM TUBE EXT SCH ×3 (10:39→20:30)
--- NOTE | 2021-04-02 12:53 | Pharmacy Report ---
Pharmacy Glycemic Short Note 2 - Date of Service April 02, 2021 - Glycemic Short BSG Results (Last 24 hours): 04/01/21 04/01/21 04/02/21 17:15 20:23 08:04 POC Glucose 176 H 237 H 123 H 04/02/21 12:12 POC Glucose 125 H OUTPATIENT ANTIDIABETIC REGIMEN: * Metformin 1000mg PO qAM * HbA1c: 6.8% (03/27/21) ASSESSMENT: 04/02/21: * Ms Hernandez remains on SoluMedrol 40mg IV daily. * Fasting BSG within goal this morning. * BSGs still trending up throughout the day, so Novolog parameters adjusted this morning to provide additional prandial coverage. * Pt refused breakfast this morning. 04/01 * Solu-Medrol decreased to once daily today, decrease NPH slightly, continue tight CF/CR as patient BSG when above goal yesterday prior to dinner to 216mg/dl. All other BSGs at goal, no further changes at this time. 03/31 * Patient switched back to IV Solu-Medrol 40mg IV twice daily last evening, resulting in elevated blood sugars - tighten CF/CR * Continue NPH * Fasting BSG 123mg/dl 03/30 * Patient's BSGs yesterday were [phone]. * Patient received 55 units of insulin (30 units of NPH plus 25 units of Novolog). * Fasting today is 85 mg/dL. * Starting prednisone 40 mg PO daily. Continue NPH 30 units daily and Novolog. Baseline * Ms Hernandez is an 85yo diabetic female admitted 03/26 with COPD/asthma exac. * Pt has been receiving IV SoluMedrol, leading to steroid-induced hyperglycemia. Dose reduced this morning from SoluMedrol 40mg q8h --> q12h. * NPH added to help cover while steroids on board. * Expect that insulin needs will decrease as steroids taper. Pharmacy will continue to follow and adjust as needed. PLAN FOR INPATIENT GLYCEMIC CONTROL: * Hold outpatient oral diabetes medications * Basal insulin * NPH 25 units (~0.3 units/kg) SQ qAM * Bolus insulin * NovoLog per scale ACHS or Q6hrs while NPO * Goal Range: Low 110 mg/dL - High 140 mg/dL * Correction Factor: 25 mg/dL/unit * Nutritional / Prandial insulin per carb ratio of 1 unit per 4 grams CHO consumed PLAN FOR DISCHARGE: * A1c: 6.8% * This indicates excellent glycemic control as an outpt. Expect that pt may resume home regimen on discharge, as long as no contraindications are present. * If patient will be discharged with ongoing steroids, she may require some additional coverage.
--- NOTE | 2021-04-02 18:17 | Hospitalist Progress Note ---
Date of Service April 02, 2021 Assessment & Plan (1) Acute exacerbation of chronic obstructive pulmonary disease: (2) Asthma: (3) Acute respiratory failure with hypoxia: Plan: This is an 85-year-old female with PMHx of Asthma/COPD, DMII, HLD, Nocturnal hypoxia, HTN, OJEDA cirrhosis, CAD, Urinary incontinence, Anxiety, Lumbar DDD, Osteoporosis who presented to ED on 03/26/2021 secondary to worsening shortness of breath, cough and increased pedal production. She was diagnosed with acute respiratory failure with hypoxia secondary to bronchitis. Increased O2 requirements on 03/30 Repeat CXR: Interval development of moderate bilateral airspace opacities sugg estive of viral pneumonia Decreased steroids to once daily due to agitation yesterday, with improved mentation - continue IV solu-medrol 40mg daily Nebs Q6H, hypertonic saline bilaterally, incentive spirometry Mild leukocytosis in setting of steroids, stable COVID and BIOfire negative Completed 3 days of IV Zosyn Levaquin discontinued on 03/31 due to increased confusion, drowsiness MRSA swab negative Metabolic Encephalopathy likely multifactorial in setting of PNA, possible reaction to levaquin -> resolved with reduced steroids, d/c of Levaquin and tramadol (4) Hypomagnesemia: Plan: Repleted Magnesium normal (5) Hypertension: Plan: Continue metoprolol tartrate 50 mg BID, losartan 50 mg daily, amlodipine 10 mg, imdur, and lasix Losartan increased to bid on 03/30 (6) Dyslipidemia: Plan: Continue statin therapy (7) Type 2 diabetes mellitus: Plan: A1c 6.8, hold Metformin Glycemic pharmacy on board, appreciate their assistance Blood Sugar stable (8) Diabetic peripheral neuropathy: Plan: Cont gabapentin (9) GERD (gastroesophageal reflux disease): Plan: Cont omeprazole Plan: DVT prophylaxis: SCD/TEDS, added SQ Heparin Dispo: Planning for d/c to [facility] tomorrow - updated daughter on the phone this evening Code: DNR/DNI PCP: Dena Lira MD Pt was seen and examined in collaboration with Dr. Turner, please see addendum Admission and Anticipated Discharge Date Admission Date: March 26, 2021 Supervising Physician Co-Signing Physician Notes Pt was seen and examined. Agreed with eWndi FELDMAN exam, assessment and plan. Patient is looking much better today compared to yesterday She said that her breathing is much better Denies any SOB or chest pain Exam No acute distress normal rate, regular rhythm, no murmurs Coarse breath sound non distended, soft, nontender no bipedal edema, erythema, warmth no neuro deficits ASSESSMENT AND PLAN Acute on chronic hypoxic respiratory failure COPD exacerbation, Bilateral pneumonia Chest x-ray showing bilateral infiltrates Repeat Covid screen negative Will discontinue Levaquin due to confusion and dwonsiness Doxycycline and Levaquin were discontinued Continue IV Zosyn and steroid Nebs every 6 hours Continue oxygen supplement at baseline Clinically improved significantly Please refer to Sharda FELDMAN documentation for other problems. MD Yue Subjective Patient was seen and examined in room 307. Feeling better today, sleepy but awakens to answers questions appropriately during exam. No new complaints overnight. No F/C, chest pain, SOB, N/V, abdominal pain, dysuria. Had bowel movement this morning. Review of Systems Review of Systems: At least ten systems reviewed and negative except as noted in the HPI. Physical Exam Physical Exam: Gen: Elderly, female, lying in bed resting but awakens to answer questions appropriately A&Ox2 HEENT: Normocephalic, atraumatic, conjunctivae moist, sclerae anicteric, mucous membranes moist. Lung: Bilateral expiratory wheeze and rhonchi throughout, on 1 L of O2 via NC Heart: Regular rate, regular rhythm, no murmurs, rubs, or gallops Abdomen: Soft, NT, ND +BS x 4 Extremities: No edema Skin: Warm, no rash Results & Data Results & Data ([facility]) Vital Signs (Past 12 Hours) Vital Signs Temp Pulse Resp BP Pulse Ox 04/02/21 14:08 79 16 113/56 L 92 04/02/21 07:32 36.8 C 88 16 157/71 H 91 04/02/21 07:07 86 18 91
[2021-04-02] MEDS: ATORVASTATIN 40 MG TAB PO SCH (20:29)
[2021-04-02] MEDS: MONTELUKAST SODIUM 10 MG TABLET PO SCH (20:29)
[2021-04-02] MEDS: MELATONIN 3 MG TAB PO SCH (20:30)
[2021-04-03] MEDS: IPRATROPIUM BROMIDE NEB SOLN 0.02% 2.5 ML VIAL INH SCH ×3 (01:14→14:15)
[2021-04-03] MEDS: LEVALBUTEROL 1.25MG/0.5ML NEB INH SCH ×3 (01:14→14:15)
[2021-04-03] MEDS: PIPERACILLIN/TAZOBACTAM 3.375 GM in DEXTROSE 5% 100 ML IV SCH (04:05)
[2021-04-03] MEDS: PANTOprazole 40 MG TAB PO SCH (05:57)
[2021-04-03] MEDS: HEPARIN SOD 5,000 UNIT/0.5 ML VIAL SQ SCH (05:57)
[2021-04-03] MEDS: INSULIN ASPART PER UNIT SC SCH ×2 (09:01→12:53)
[2021-04-03] MEDS: CALCIUM 600MG + VIT D 400 IU TAB PO SCH (10:05)
[2021-04-03] MEDS: CETIRIZINE HCL 10 MG TABLET PO SCH (10:06)
[2021-04-03] MEDS: FUROSEMIDE 20 MG TAB PO SCH (10:06)
[2021-04-03] MEDS: METOPROLOL TARTRATE 50 MG TAB PO SCH (10:06)
[2021-04-03] MEDS: CEROVITE ADV FORMULA TAB PO SCH (10:06)
[2021-04-03] MEDS: ISOSORBIDE MONO EXTENDED REL 60 MG TABCR PO SCH (10:07)
[2021-04-03] MEDS: BENZONATATE 100 MG CAPSULE PO SCH (10:07)
[2021-04-03] MEDS: DOCUSATE SODIUM/SENNA 50/8.6MG TAB PO SCH (10:07)
[2021-04-03] MEDS: amLODIPine BESYLATE 5 MG TAB PO SCH (10:07)
[2021-04-03] MEDS: ASPIRIN 81 MG ECTAB PO SCH (10:08)
[2021-04-03] MEDS: methylPREDNISolone 40 MG in SYRINGE 0 ML IV SCH (10:08)
[2021-04-03] MEDS: LOSARTAN POTASSIUM 50 MG TAB PO SCH (10:08)
[2021-04-03] MEDS: GABAPENTIN 300 MG CAP PO SCH (10:08)
[2021-04-03] MEDS: guaiFENesin 600 MG TABCR PO SCH (10:08)
[2021-04-03] MEDS: POLYETHYLENE (MIRALAX) 17 GM PACK PO SCH (10:10)
[2021-04-03] MEDS: DICLOFENAC SOD 1% GEL 100 GM TUBE EXT SCH (10:10)
[2021-04-03] MEDS: FLUTICASONE/VILANTEROL 200/25MCG 14 PUFFS/INHALER INH SCH (10:10)
[2021-04-03] MEDS: DULoxetine HCL 60 MG CAP PO SCH (10:10)
[2021-04-03] MEDS: INSULIN HUMAN NPH SC SCH (10:11)
[2021-04-03] MEDS ORDERED: AMOXICILLIN/CLAVULANATE 875 MG TAB PO SCH (11:00)
--- NOTE | 2021-04-03 12:33 | Discharge Summary ---
Date of Service April 03, 2021 Admission HPI Per Admitting Provider This is an 85-year-old female with PMHx of Asthma/COPD, DMII, HLD, Nocturnal hypoxia, HTN, OJEDA cirrhosis, CAD, Urinary incontinence, Anxiety, Lumbar DDD, Osteoporosis. Pt was sent from [facility] as she was found to be having increased respiratory symptoms including shortness of breath with exertion, cough and occasional sputum production by her caregiver who visits her daily. She typically wears 1.5 O2 since her last admission approximately 1 week ago when she went home, however was found to be hypoxic when EMS arrived this morning and she was at 88% on 3 L. Since being in the ER here she has been placed on 5 L and oxygen saturations are now in the low 90s. She has been given Solu-Medrol 60 mg IV x1. She was diagnosed with COPD during her last admission here however does not recall having history of such prior to that. She denies any history of ever smoking, but admits to being exposed to secondhand her whole life by her family. She denies any chest pain, chest heaviness, abdominal complaints. She admits to intermittent constipation, denies any urinary complaints. She is currently getting a hour-long nebulizer treatment and feels slightly improved. She is a bit shakey right now. Pt notes she will call her daughter and tell her she is staying here. Admission Exam Per Admitting Provider Constitutional: No fever, sweats or chills Eyes: No diplopia, no worsening or blurred vision ENT: normal hearing, no trouble swallowing Respiratory: + cough, + occasional green/yellow sputum, no dyspnea at rest, +dyspnea on exertion Cardiovascular: No chest pain, tightness or palpitations Abdomen: No pain, nausea, vomiting, diarrhea or constipation Musculoskeletal: No joint pain, calf pain, swelling Neurologic: No weakness, numbness/tingling, or balance problems Psychiatric: No anxiety or depression Skin: No rash or itch Principal Diagnosis Acute exacerbation of chronic obstructive pulmonary disease: Asthma: Acute respiratory failure with hypoxia: Metabolic Encephalopathy Hypomagnesemia: Hypertension: Dyslipidemia: Type 2 diabetes mellitus: Diabetic peripheral neuropathy: GERD (gastroesophageal reflux disease) Discharge Exam Gen: Elderly, female, lying in bed resting but awakens to answer questions appropriately A&Ox2 HEENT: Normocephalic, atraumatic, conjunctivae moist, sclerae anicteric, mucous membranes moist. Lung:+coarse BS Heart: Regular rate, regular rhythm, no murmurs, rubs, or gallops Abdomen: Soft, NT, ND +BS x 4 Extremities: No edema Skin: Warm, no rash Discharge Data Allergies Allergy/AdvReac Type Severity Reaction Status Date / Time azelastine Allergy Intermediate elevated bp Verified 03/26/21 08:02 trospium Allergy Intermediate hives Verified 03/26/21 08:02 azithromycin Allergy Mild Rash Verified 03/26/21 08:02 citalopram Allergy Unknown UNKNOWN Verified 03/26/21 08:02 chlorpheniramine AdvReac Intermediate ELEVATED BP Verified 03/26/21 08:02 Corticosteroids AdvReac Intermediate ELEVATED BP Verified 03/26/21 08:02 (Glucocorticoids) fexofenadine AdvReac Intermediate ELEVATED BP Verified 03/26/21 08:02 fluticasone AdvReac Intermediate ELEVATED BP Verified 03/26/21 08:02 hydrocodone AdvReac Intermediate ELEVATED BP Verified 03/26/21 08:02 magnesium salicylate AdvReac Intermediate ELEVATED BP Verified 03/26/21 08:02 salicylates AdvReac Intermediate ELEVATED BP Verified 03/26/21 08:02 Consultations 03/26/21 08:50 ED Decision to Admit Stat Ordered Studies 03/26/21 14:47 US venous doppler LE BI Stat XR chest 2V PA/lateral CLINICAL HISTORY: worsening hypoxia, cough COMPARISON STUDY: Chest CT January 26, 2021. Chest radiograph March 26, 2021. FINDINGS: Lung volumes are diminished. This is unchanged. There is no pneumothorax or pleural effusion. No evidence for pulmonary edema. Multifocal nodular airspace opacities have developed since prior examination. IMPRESSION: Interval development of moderate bilateral airspace opacities suggestive of viral pneumonia. ACT 112: Negative or not required by law. Electronically signed by: Cristian Aguilar M.D. 03/30/2021 11:19 AM Dictated:03/30/21 1110 Transcribed: 03/30/21 1111 BILATERAL LOWER EXTREMITY VENOUS DOPPLER CLINICAL HISTORY: leg edema, pain r/o DVt COMPARISON STUDY: Left lower extremity venous Doppler ultrasound May 28, 2018. TECHNIQUE: Sonography of the deep venous system of the bilateral lower extremities was performed. Compression and augmentation were evaluated. FINDINGS: The bilateral common femoral, superficial femoral and popliteal veins were compressible. Augmentation was normal. Flow was shown within the deep calf vessels. IMPRESSION: No evidence of deep venous thrombus within the bilateral lower extremities. ACT 112: Negative or not required by law. Electronically signed by: Cristian Aguilar M.D. 03/26/2021 8:57 PM Dictated:03/26/212055 Transcribed: 03/26/212055 XR chest 1V portable CLINICAL HISTORY: cough, hypoxia. Nonsmoker COMPARISON STUDY: 10/21/2020 TECHNIQUE: 1 view of the chest FINDINGS: Single frontal view of the chest demonstrates the cardiomediastinal silhouette to be within normal limits. There is a decreased inspiratory effort with elevation of the hemidiaphragms and crowding of the bronchovascular markings at the lung bases and centrally. The lungs are clear of alveolar opacities. There is no evidence for pleural effusion. There is no evidence for vascular congestion. There is no acute osseous pathology. IMPRESSION: There is a decreased inspiratory effort with otherwise no acute chest disease. ACT 112: Negative or not required by law. Electronically signed by: Sebastian Salmeron M.D. 03/26/2021 7:50 AM Dictated:03/26/2149 Transcribed: 03/26/21748 Hospital Course (1) Acute exacerbation of chronic obstructive pulmonary disease: (2) Asthma: (3) Acute respiratory failure with hypoxia: This is an 85-year-old female with PMHx of Asthma/COPD, DMII, HLD, Nocturnal hypoxia, HTN, OJEDA cirrhosis, CAD, Urinary incontinence, Anxiety, Lumbar DDD, Osteoporosis who presented to ED on 03/26/2021 secondary to worsening shortness of breath, cough and increased pedal production. She was diagnosed with acute respiratory failure with hypoxia secondary to bronchitis. Increased O2 requirements on 03/30 Repeat CXR: Interval development of moderate bilateral airspace opacities suggestive of viral pneumonia Decreased steroids to once daily due to agitation yesterday, with improved mentation - continue IV solu-medrol 40mg daily Nebs Q6H, hypertonic saline bilaterally, incentive spirometry Mild leukocytosis in setting of steroids, stable COVID and BIOfire negative Completed 3 days of IV Zosyn Levaquin discontinued on 03/31 due to increased confusion, drowsiness MRSA swab negative Metabolic Encephalopathy likely multifactorial in setting of PNA, possible reaction to levaquin -> resolved with reduced steroids, d/c of Levaquin and tramadol (4) Hypomagnesemia: Repleted Magnesium normal (5) Hypertension: Continue metoprolol tartrate 50 mg BID, losartan 50 mg daily, amlodipine 10 mg, imdur, and lasix Losartan increased to bid on 03/30 (6) Dyslipidemia: Continue statin therapy (7) Type 2 diabetes mellitus: A1c 6.8, hold Metformin Glycemic pharmacy on board, appreciate their assistance Blood Sugar stable (8) Diabetic peripheral neuropathy: Cont gabapentin (9) GERD (gastroesophageal reflux disease): Cont omeprazole DVT prophylaxis: SCD/TEDS, added SQ Heparin Dispo: Planning for d/c to [facility] tomorrow - updated daughter on the phone this evening Code: DNR/DNI PCP: Dena Lira MD Pt was seen and examined in collaboration with Dr. Turner, please see addendum Total Time Total Time Spent Total Time Spent (In Minutes): 35 minutes Discharge Plan Discharge Items Patient Disposition: Transfer Jail Fac Reason For Visit: HYPOXIA Discharge Diagnosis: Acute exacerbation of chronic obstructive pulmonary disease: Asthma: Acute respiratory failure with hypoxia: Metabolic Encephalopathy Hypomagnesemia: Hypertension: Dyslipidemia: Type 2 diabetes mellitus: Diabetic peripheral neuropathy: GERD (gastroesophageal reflux disease): Condition on Discharge: Good Activity: Resume your previous activity Non-emergency contact: Primary Care Provider Call non-emergency contact if: you have any medication questions and your symptoms worsen Follow-up/Referrals: Garcia Lira [Primary Care Provider] - Diet: Heart Healthy Addancelmo Attending Provider Instructions: Follow up with your primary care provider at [facility] Continue physical and occupational therapy Continue oxygen supplement with 1.5L to 2L nasal canula Continue incentive spirometry and flutter valve Complete the course of the antibiotic with Augmentin Continue short taper course of prednisone Fall precaution Seek medical attention if your breathing worsening Pending Studies at Discharge: No Stand-Alone Forms: My [facility] [employer] Skilled Items Patient informed of condition?: Yes DNR: Yes Discharge Level of Care: Skilled Communicable Disease: No Discharge Prognosis: Stable Lines: None Urinary Catheter: No Medications and DC Order Prescriptions: New prednisone 10 mg tablet 10 mg PO UD Qty: 15 RF: 0 Continued amlodipine [Norvasc] 10 mg tablet 10 mg PO QAM RF: 0 docusate sodium [Colace] 100 mg capsule 100 mg PO BID PRN (Reason: Constipation) RF: 0 gabapentin 300 mg capsule 300 mg PO BIDM RF: 0 montelukast [Singulair] 10 mg tablet 10 mg PO HS RF: 0 isosorbide mononitrate 60 mg tablet extended release 24 hr 60 mg PO QAM RF: 0 furosemide 20 mg tablet 20 mg PO QAM RF: 0 nitroglycerin 0.4 mg tablet, sublingual 0.4 mg SL Q5M PRN (Reason: Chest Pain) RF: 0 aspirin 81 mg Tablet,Delayed Release (Dr/Ec) 81 mg PO BID RF: 0 duloxetine [Cymbalta] 60 mg capsule,delayed release(DR/EC) 60 mg PO QAM RF: 0 melatonin 5 mg tablet 10 mg PO HS RF: 0 cetirizine 10 mg Tablet 10 mg PO QDL RF: 0 acetaminophen 500 mg tablet 500 mg PO BID RF: 0 metoprolol tartrate 50 mg tablet 50 mg PO BIDM RF: 0 losartan 50 mg Tablet 50 mg PO QAM RF: 0 atorvastatin 40 mg Tablet 40 mg PO HS RF: 0 omeprazole 40 mg Capsule,Delayed Release(Dr/Ec) 40 mg PO DAILYBB RF: 0 Cerovite Senior Tablet 1 tab PO QAM RF: 0 metformin 500 mg tablet 1,000 mg PO QAM RF: 0 vitamin B complex-folic acid [Balance B-50 (with folic acid)] 0.4 mg tablet 1 tab PO .DAILY AT NOON RF: 0 calcium carbonate-vitamin D3 [Oyster Shell Calcium-Vit D3] 500 mg(1,250mg) - 200 unit tablet 1 tab PO QDL RF: 0 fluticasone propion-salmeterol [Advair Diskus] 250-50 mcg/dose blister with device 2 inh INHALATION BID RF: 0 ipratropium-albuterol 0.5 mg-3 mg(2.5 mg base)/3 mL solution for nebulization 3 ml INHALATION QID PRN (Reason: Congestion) RF: 0 albuterol sulfate 90 mcg/actuation Hfa Aerosol Inhaler 2 puff INHALATION QID PRN (Reason: Shortness Of Breath) RF: 0 menthol-zinc oxide [Calmoseptine] 0.44-20.6 % Ointment 1 applic TOPICAL QID PRN (Reason: redness) RF: 0 tramadol 50 mg tablet 50 mg PO BID RF: 0 buspirone 5 mg tablet 5 mg PO BID PRN (Reason: Anxiety) RF: 0 polyethylene glycol 3350 [Miralax] 17 gram Powder In Packet 17 g PO DAILY Qty: 0 RF: 0 Changed tramadol 50 mg tablet 25 mg PO BIDM PRN (Reason: pain) 5 Days Qty: 5 RF: 0 Discharge Orders: Discharge Order (Routine); Ordered 04/03/21 Ordered By: Trina Olvera/Other Patient Handouts: Managing Type 2 Diabetes Admission Data Admit Date/Time: 03/26/21 09:03 Attending Provider: Trina Turner Admit Provider: Kris Campos Primary Care Provider: Garcia Lira Other Providers: Myles Day [facility] ; Wendi Payton ; Garcia Lira ; Sharda Cohen Other Interventions: Discharge Summary Assessment (RN) Last Done: 04/03/21 11:47
== END 2021-04-03 14:19 | DRG 190 ==
LOC: ED 06:35 → SUATTDRO 09:03 → 3E 09:03

== ENCOUNTER 2021-05-26 13:32 | Inpatient (IN) ==
--- NOTE | 2021-05-26 14:10 | Emergency Department Note ---
Impression & Plan Multifocal pneumonia, Breathlessness, Weakness ED Provider Note Provider: Roberto Carrizales MD DATE OF SERVICE: 05/26/2021 CHIEF COMPLAINT: Weakness, shortness of breath/pneumonia HISTORY OF PRESENT ILLNESS: Patient is a 5-year-old female reported history of liver cirrhosis, COPD on chronic oxygen, type 2 diabetes, & CKD presenting via ambulance here today from [facility] where she resides. Note provided by the facility there today show that the patient has had worsening shortness of breath and has been taking steroids as well as on doxycycline for several days. White blood cell count has been increasing now at 33 this morning per facility sent blood work. Patient herself reports occasionally productive cough with increased shortness of breath and fatigue. She states she has some chills. No nausea or vomiting reported. States maybe a little bit of lower lung/upper abdominal pain at times. Denies any falls. Denies any headache. States she has chronic unchanged lower extremity swelling at this time. Patient states she is quite weak and not eating well and is unable to ambulate well anymore. Her chest wall/upper abdominal pain is intermittent but she does report little bit of tenderness in the upper abdomen. REVIEW OF SYSTEMS: A total of 10 review of systems was obtained and negative except as stated above in the HPI. PAST MEDICAL HISTORY: As noted above MEDICATIONS: Reviewed medication list from the facility SOCIAL HISTORY: Reports non-smoking status, resides at [facility] at this time PHYSICAL EXAM: GENERAL: alert and oriented in no acute distress on stretcher fatigued in appearance Head: normocephalic and atraumatic EYES: No injection, discharge or icterus. NECK: Trachea midline. ENT: Mucous membranes pink and moist. LUNGS: Airway patent. No retractions. Breath sounds diminished left greater than right in the bases. Fairly frequent moist cough appreciated. HEART: Regular rate and rhythm. No chest wall tenderness ABDOMEN: Soft some upper abdominal tenderness bilaterally. No peritonitis. No guarding. SKIN: Acyanotic, warm, dry EXTREMITIES: Without significant lower extremity tenderness with 2+ bilateral edema. NEUROLOGICAL: No focal deficits. No aphasia. No facial droop or slurred speech. Normal strength and tone in the extremities. EK bpm normal sinus rhythm. No PVC or PAC. No acute ST segment elevation noted. QTc 431. CONTINUOUS CARDIAC MONITORING: was ordered and showed a heart rate of 70s-90s bpm in normal sinus rhythm Patient's laboratory studies and imaging reviewed. Differential includes Infection, dehydration, metabolic abnormality, hypo/hyperglycemia, electrolyte disturbance, anemia, hypoxia, cardiac sources, intracerebral event, toxicologic, neurologic, as well as other pathologies. IMPRESSION/MEDICAL DECISION MAKING: Patient with extensive medical history. Available records from the facility and recent ER visit were noted. Prior CTs from last year per the radiology report question pulmonary lesions but did not outpatient pulmonary follow-up. Worsening leukocytosis (has been on steroids) but also worsening clinical status while outpatient doxycycline. Patient with generalized fatigue. Some leg swelling but the patient states is at baseline. No significant focality to exam and lower suspicion for acute intracranial hemorrhage or CVA. No trauma reported. Slight upper abdominal tenderness. Will complete a CTA of the chest to further evaluate pulmonary findings as well as exclude PE. We will continue with a CT abdomen pelvis this time she does have some mild upper abdominal tenderness in the room unsure if this is related or not. EKG and troponin were sent but a lower suspicion at this time for ACS. Blood cultures were ordered. Covid and influenza testing ordered. Chest x-ray per my review and the radiology report questions worsening airspace opacities. Given worsening leukocytosis while on doxycycline (which may be related steroids however with worsening clinical picture) will cover broadly with Zosyn. Blood work with leukocytosis additionally of 33 today. Hemoglobin 8.4 downtrending from 9 several days ago. BG with slight acidosis 732 with a CO2 of 67. BUN mildly elevated 51 with creatinine 1.3 mildly elevated. Magnesium slightly low at 1.5. Negative troponin. Procalcitonin 0.49. TSH not severely abnormal. No severe LFT abnormalities. BNP mildly elevated 137. Negative flu and Covid testing today. CT reports radiology without evidence of PEs with multifocal airspace opacities superimposed on chronic inflammatory infectious changes question possible pneumonia or pneumonitis. Right kidney nodules noted otherwise no significant acute intra-abdominal process is noted. Again the patient has been covered with Zosyn at this point. Given her declining status and worsening labs will recommend admission at this time. Hospitalist contacted. Patient informed of right kidney nodule -- need for outpatient follow up. She is mildly hypercarbic and with her generalized fatigue and shortness of breath discussed and she was agreeable to a trial of BiPAP. DIAGNOSIS: Shortness of breath, weakness, multifocal pneumonia DISPOSITION: Hospitalist will evaluate Patient was agreeable with this plan. Critical Care I have personally spent 32 minutes of critical care time in the direct management of this patient. This includes bedside care, interpretation of diagnostic studies, and testing, discussion with consultants, patient, and other required patient management activities. These 32 minutes is in excess of all separately billable procedures. Past Med/Surg History Medical History Acute exacerbation of chronic obstructive pulmonary disease Ambulatory dysfunction Anxiety Anxiety (02/04/11) Arteriosclerotic coronary artery disease (02/04/11) Arthritis Asthma Asthma Carotid stenosis Cerebrovascular disease Chronic diastolic heart failure Cough Degenerative disc disease Diabetic neuropathy Diabetic peripheral neuropathy Diverticulosis (02/04/11) Dyslipidemia GERD (gastroesophageal reflux disease) Hyperlipidemia Hypoxia Morbid obesity with BMI of 45.0-49.9, adult (02/04/11) Myocardial Infarction OVER 10 YEARS AGO Peripheral edema Pneumonia Pressure sore ON COCCYX (FROM SITTING) Restless leg syndrome Type 2 diabetes mellitus (02/04/11) Unsteady gait when walking Urinary incontinence Venous insufficiency Surgical History History of anesthesia reaction SLOW TO WAKE UP History of cataract surgery History of colonoscopy History of esophagogastroduodenoscopy (EGD) History of heart artery stent OVER 10 YEARS AGO/1 STENT (FOLLOWS DR. NARAYANAN) History of tooth extraction Hx laparoscopic cholecystectomy Hx of tubal ligation Family History Other Adopted Cancer Social History Smoking Status: Never smoker Second Hand Exposure: No; Hx Alcohol Use: No Hx Substance Use: No Preferred Language: Bengali Communication Ability: Effective Autographer Required: No Beliefs That Will Affect Care: None marital status: Single marital status details: [email or web address] Current Living Situation: Personal Care Facility Current Living Situation Comment: [facility] current occupational status: retired How many Children do You have: 2 Feels Safe at Home: Yes Assistive Devices: Denture - Upper, Denture - Lower, Glasses, Oxygen - Continuous and Walker Allergies Allergies Allergy/AdvReac Type Severity Reaction Status Date / Time azelastine Allergy Intermediate elevated bp Verified 05/26/21 14:53 trospium Allergy Intermediate hives Verified 05/26/21 14:53 azithromycin Allergy Mild Rash Verified 05/26/21 14:53 citalopram Allergy Unknown UNKNOWN Verified 05/26/21 14:53 chlorpheniramine AdvReac Intermediate ELEVATED BP Verified 05/26/21 14:53 Corticosteroids AdvReac Intermediate ELEVATED BP Verified 05/26/21 14:53 (Glucocorticoids) fexofenadine AdvReac Intermediate ELEVATED BP Verified 05/26/21 14:53 fluticasone AdvReac Intermediate ELEVATED BP Verified 05/26/21 14:53 hydrocodone AdvReac Intermediate ELEVATED BP Verified 05/26/21 14:53 magnesium salicylate AdvReac Intermediate ELEVATED BP Verified 05/26/21 14:53 salicylates AdvReac Intermediate ELEVATED BP Verified 05/22/21 20:01 Home Meds Home Medications Medication Instructions Recorded Confirmed amlodipine 10 mg tablet (Norvasc) 10 mg PO QAM 11/28/17 05/26/21 montelukast 10 mg tablet 10 mg PO HS 11/28/17 05/26/21 (Singulair) aspirin 81 mg tablet,delayed 81 mg PO AMHS 06/16/18 05/26/21 release duloxetine 60 mg capsule,delayed 60 mg PO QAM 06/16/18 05/26/21 release (Cymbalta) furosemide 20 mg tablet 20 mg PO QAM 12/26/18 05/26/21 isosorbide mononitrate 60 mg 60 mg PO QAM 12/26/18 05/26/21 tablet,extended release 24 hr nitroglycerin 0.4 mg sublingual 0.4 mg SL Q5M PRN 12/26/18 05/26/21 tablet acetaminophen 500 mg tablet 500 mg PO BID 09/16/19 05/26/21 cetirizine 10 mg tablet 10 mg PO QDL 09/16/19 05/26/21 metoprolol tartrate 50 mg tablet 50 mg PO BIDM 09/16/19 05/26/21 atorvastatin 40 mg tablet 40 mg PO HS 12/23/19 05/26/21 losartan 50 mg tablet 50 mg PO QAM 12/23/19 05/26/21 [id number] 1 tab PO QAM 12/23/19 05/26/21 tablet (Cerovite Senior) omeprazole 40 mg capsule,delayed 40 mg PO DAILYBB 12/23/19 05/26/21 release calcium carbonate 500 mg-vitamin 1 tab PO QDL 10/14/20 05/26/21 D3 5 mcg (200 unit) tablet (Oyster Shell Calcium-Vitamin D3) albuterol sulfate 90 mcg/actuation 2 puff INHALATION QID PRN 03/26/21 05/26/21 aerosol inhaler fluticasone 250 mcg-salmeterol 50 1 inh INHALATION AMHS 03/26/21 05/26/21 mcg/dose blistr powdr for inhalation (Advair Diskus) ipratropium 0.5 mg-albuterol 3 mg 3 ml INHALATION TID 03/26/21 05/26/21 (2.5 mg base)/3 mL nebulization soln buspirone 5 mg tablet 5 mg PO BID 03/31/21 05/26/21 Theracalazinc 1 applic TOPICAL QS 05/22/21 05/26/21 acetaminophen 325 mg tablet 650 mg PO Q4 PRN MDD 3g 05/22/21 05/26/21 aluminum-mag hydroxide-simethicone 30 ml PO Q6 PRN 05/22/21 05/26/21 200 mg-200 mg-20 mg/5 mL oral susp (Maalox Advanced) doxycycline hyclate 100 mg capsule 100 mg PO BID 05/22/21 05/26/21 ferrous sulfate 325 mg (65 mg 325 mg PO AMHS 05/22/21 05/26/21 iron) tablet food supplemt, lactose-reduced 1 ea PO DAILY 05/22/21 05/26/21 gabapentin 100 mg capsule 100 mg PO BID 05/22/21 05/26/21 ipratropium 0.5 mg-albuterol 3 mg 3 ml INHALATION QID PRN 05/22/21 05/26/21 (2.5 mg base)/3 mL nebulization soln lanolin-mineral oil lotion 1 applic TOPICAL BID 05/22/21 05/26/21 (Eucerin Original) melatonin 3 mg tablet 3 mg PO HS 05/22/21 05/26/21 metformin 1,000 mg tablet 1,000 mg PO QAM 05/22/21 05/26/21 nystatin 100,000 unit/gram topical 1 applic TOPICAL QS 05/22/21 05/26/21 powder nystatin 100,000 unit/mL oral 5 ml PO QID 05/22/21 05/26/21 suspension ondansetron HCl 4 mg tablet 4 mg PO Q6 PRN 05/22/21 05/26/21 polyethylene glycol 3350 17 gram 17 g PO BID 05/22/21 05/26/21 oral powder packet (Miralax) psyllium 1 tbsp PO BID 05/22/21 05/26/21 vitamin B complex 1 cap PO .DAILY AT NOON 05/22/21 05/26/21 guaifenesin 100 mg/5 mL oral 200 mg PO Q4H PRN 05/26/21 05/26/21 liquid (Tussin Mucus-Chest Congestion) insulin aspart U-100 100 unit/mL 8 unit SUBCUT AC 05/26/21 05/26/21 subcutaneous solution (Novolog U-100 Insulin aspart) insulin glargine 100 unit/mL (3 14 unit SUBCUT HS 05/26/21 05/26/21 mL) subcutaneous pen (Lantus Solostar U-100 Insulin) prednisone 20 mg tablet 20 mg PO .[id number] 05/26/21 05/26/21 prednisone 20 mg tablet 40 mg PO .[id number] 05/26/21 05/26/21 tramadol 50 mg tablet 25 mg PO TID PRN 05/26/21 05/26/21 Results & Data (ED) Vital Signs Vital Signs - 24 hr 05/26/21 13:39 05/26/21 13:41 05/26/21 13:42 Temperature 36.8 C 36.8 C Temperature Source Oral Axillary Pulse Rate 81 Pulse Rate [Apical] 83 Pulse Rhythm [Apical] Regular Respiratory Rate 27 H 26 H Respiratory Effort / Characteristics Short of Breath Short of Breath Respiratory Depth Blood Pressure 124/73 Blood Pressure [Left Arm] 124/83 Blood Pressure Mean 90 Blood Pressure Mean [Left Arm] 96 Blood Pressure Position Lying Pulse Oximetry 93 93 Oxygen Delivery Method Nasal Cannula Nasal Cannula Nasal Cannula Oxygen Flow Rate 5 5 5 Fraction of Inspired Oxygen Sepsis Recent Fever Within 48 Hours No Sepsis New/Unexplained Change in Mental Status N/A Sepsis Action Taken by Nursing No Action Required 05/26/21 15:06 05/26/21 16:22 05/26/21 17:11 Temperature Temperature Source Pulse Rate 83 Pulse Rate [Apical] 84 84 Pulse Rhythm [Apical] Regular Regular Respiratory Rate 16 22 16 Respiratory Effort / Characteristics Spontaneous Respiratory Depth Normal Normal Blood Pressure Blood Pressure [Left Arm] Blood Pressure Mean Blood Pressure Mean [Left Arm] Blood Pressure Position Pulse Oximetry 94 94 95 Oxygen Delivery Method Nasal Cannula BiPAP Oxygen Flow Rate 5 Fraction of Inspired Oxygen 30 Sepsis Recent Fever Within 48 Hours Sepsis New/Unexplained Change in Mental Status Sepsis Action Taken by Nursing Laboratory Data Result diagrams: 05/26/21 13:46 05/26/21 13:46 Lab Results 05/26/21 05/26/21 05/26/21 Range/Units 13:46 13:46 13:46 WBC 32.94 H* (4.8-10.8) K/uL RBC 3.03 L (4.2-5.4) M/uL Hgb 8.4 L (12.0-16.0) g/dL Hct 27.5 L (37-47) % MCV 90.8 (80-100) fL MCH 27.7 (25-34) pg MCHC 30.5 L (32-36) g/dL RDW Std Deviation 52.8 H (36.4-46.3) fL RDW Coeff of Rakesh 15.8 H (11.5-14.5) % Plt Count 261 (130-400) K/uL MPV 10.8 H (7.4-10.4) fL Immature Gran % (Auto) 0.5 % Neut % (Auto) 92.3 % Lymph % (Auto) 3.4 % [place] % (Auto) 3.8 % Eos % (Auto) 0.0 % Baso % (Auto) 0.0 % Neut # (Auto) 30.41 H (1.4-6.5) K/uL Lymph # (Auto) 1.11 L (1.2-3.4) K/uL [place] # (Auto) 1.25 H (0.11-0.59) K/uL Eos # (Auto) 0.00 (0-0.5) K/uL Baso # (Auto) 0.01 (0-0.2) K/uL Immature Gran # (Auto) 0.16 H (0.00-0.02) K/uL Polychromasia 1+ Poikilocytosis Present Anisocytosis Present PT 11.2 (9.0-12.0) Seconds INR 1.1 (0.9-1.1) VBG pH (7.36-7.41) VBG pCO2 (38-50) mmHg VBG pO2 mmHg VBG HCO3 mmol/L VBG O2 Saturation % VBG Base Excess mEq/L Barometric Pressure mm/Hg Sodium 141 (136-145) mmol/L Potassium 4.3 (3.5-5.1) mmol/L Chloride 102 (98-107) mmol/L Carbon Dioxide 33 H (21-32) mmol/L Anion Gap 6 (3-11) BUN 51 H (6-23) mg/dl Creatinine 1.35 H (0.6-1.2) mg/dl Est Cr Clr Drug Dosing 33.8 ml/min Est GFR ( Amer) 42.0 ml/min Est GFR (Non-Af Amer) 36.2 ml/min BUN/Creatinine Ratio 37.8 H (10-20) Glucose 154 H (70-99(Fasting)) mg/dl Lactate (0.4-2.0) mmol/L Calcium 9.3 (8.5-10.1) mg/dl Magnesium 1.5 L (1.7-2.4) mg/dl Total Bilirubin 0.3 (0.2-1.0) mg/dl AST 25 (13-39) U/L ALT 21 (7-52) U/L Alkaline Phosphatase 81 (34-104) U/L Ammonia Troponin I < 0.03 (0-0.04) ng/ml B-Natriuretic Peptide (0-100) pg/ml Total Protein 7.1 (6.0-8.3) gm/dl Albumin 2.9 L (3.4-5.0) gm/dl Globulin 4.2 H (2.5-4.0) gm/dl Albumin/Globulin Ratio 0.7 L (0.9-2) Lipase 22 (11-82) U/L Procalcitonin (0-0.5) ng/ml TSH (0.300-4.500) uIu/ml Influ A Molecular Assay (Negative) Influ B Molecular Assay (Negative) SARS-CoV-2, RNA, NAAT (NEGATIVE) 05/26/21 05/26/21 05/26/21 Range/Units 13:46 13:46 13:46 WBC (4.8-10.8) K/uL RBC (4.2-5.4) M/uL Hgb (12.0-16.0) g/dL Hct (37-47) % MCV (80-100) fL MCH (25-34) pg MCHC (32-36) g/dL RDW Std Deviation (36.4-46.3) fL RDW Coeff of Rakesh (11.5-14.5) % Plt Count (130-400) K/uL MPV (7.4-10.4) fL Immature Gran % (Auto) % Neut % (Auto) % Lymph % (Auto) % [place] % (Auto) % Eos % (Auto) % Baso % (Auto) % Neut # (Auto) (1.4-6.5) K/uL Lymph # (Auto) (1.2-3.4) K/uL [place] # (Auto) (0.11-0.59) K/uL Eos # (Auto) (0-0.5) K/uL Baso # (Auto) (0-0.2) K/uL Immature Gran # (Auto) (0.00-0.02) K/uL Polychromasia Poikilocytosis Anisocytosis PT (9.0-12.0) Seconds INR (0.9-1.1) VBG pH (7.36-7.41) VBG pCO2 (38-50) mmHg VBG pO2 mmHg VBG HCO3 mmol/L VBG O2 Saturation % VBG Base Excess mEq/L Barometric Pressure mm/Hg Sodium (136-145) mmol/L Potassium (3.5-5.1) mmol/L Chloride (98-107) mmol/L Carbon Dioxide (21-32) mmol/L Anion Gap (3-11) BUN (6-23) mg/dl Creatinine (0.6-1.2) mg/dl Est Cr Clr Drug Dosing ml/min Est GFR ( Amer) ml/min Est GFR (Non-Af Amer) ml/min BUN/Creatinine Ratio (10-20) Glucose (70-99(Fasting)) mg/dl Lactate 1.8 (0.4-2.0) mmol/L Calcium (8.5-10.1) mg/dl Magnesium (1.7-2.4) mg/dl Total Bilirubin (0.2-1.0) mg/dl AST (13-39) U/L ALT (7-52) U/L Alkaline Phosphatase (34-104) U/L Ammonia Troponin I (0-0.04) ng/ml B-Natriuretic Peptide (0-100) pg/ml Total Protein (6.0-8.3) gm/dl Albumin (3.4-5.0) gm/dl Globulin (2.5-4.0) gm/dl Albumin/Globulin Ratio (0.9-2) Lipase (11-82) U/L Procalcitonin 0.49 (0-0.5) ng/ml TSH 0.432 (0.300-4.500) uIu/ml Influ A Molecular Assay (Negative) Influ B Molecular Assay (Negative) SARS-CoV-2, RNA, NAAT (NEGATIVE) 05/26/21 05/26/21 05/26/21 Range/Units 14:34 14:47 14:47 WBC (4.8-10.8) K/uL RBC (4.2-5.4) M/uL Hgb (12.0-16.0) g/dL Hct (37-47) % MCV (80-100) fL MCH (25-34) pg MCHC (32-36) g/dL RDW Std Deviation (36.4-46.3) fL RDW Coeff of Rakesh (11.5-14.5) % Plt Count (130-400) K/uL MPV (7.4-10.4) fL Immature Gran % (Auto) % Neut % (Auto) % Lymph % (Auto) % [place] % (Auto) % Eos % (Auto) % Baso % (Auto) % Neut # (Auto) (1.4-6.5) K/uL Lymph # (Auto) (1.2-3.4) K/uL [place] # (Auto) (0.11-0.59) K/uL Eos # (Auto) (0-0.5) K/uL Baso # (Auto) (0-0.2) K/uL Immature Gran # (Auto) (0.00-0.02) K/uL Polychromasia Poikilocytosis Anisocytosis PT (9.0-12.0) Seconds INR (0.9-1.1) VBG pH 7.32 L (7.36-7.41) VBG pCO2 67 H (38-50) mmHg VBG pO2 37 mmHg VBG HCO3 34 mmol/L VBG O2 Saturation 66.0 % VBG Base Excess 6.3 mEq/L Barometric Pressure 730.6 mm/Hg Sodium (136-145) mmol/L Potassium (3.5-5.1) mmol/L Chloride (98-107) mmol/L Carbon Dioxide (21-32) mmol/L Anion Gap (3-11) BUN (6-23) mg/dl Creatinine (0.6-1.2) mg/dl Est Cr Clr Drug Dosing ml/min Est GFR ( Amer) ml/min Est GFR (Non-Af Amer) ml/min BUN/Creatinine Ratio (10-20) Glucose (70-99(Fasting)) mg/dl Lactate (0.4-2.0) mmol/L Calcium (8.5-10.1) mg/dl Magnesium (1.7-2.4) mg/dl Total Bilirubin (0.2-1.0) mg/dl AST (13-39) U/L ALT (7-52) U/L Alkaline Phosphatase (34-104) U/L Ammonia Cancelled Troponin I (0-0.04) ng/ml B-Natriuretic Peptide 137 H (0-100) pg/ml Total Protein (6.0-8.3) gm/dl Albumin (3.4-5.0) gm/dl Globulin (2.5-4.0) gm/dl Albumin/Globulin Ratio (0.9-2) Lipase (11-82) U/L Procalcitonin (0-0.5) ng/ml TSH (0.300-4.500) uIu/ml Influ A Molecular Assay (Negative) Influ B Molecular Assay (Negative) SARS-CoV-2, RNA, NAAT (NEGATIVE) 05/26/21 05/26/21 05/26/21 Range/Units 15:46 Unknown Unknown WBC (4.8-10.8) K/uL RBC (4.2-5.4) M/uL Hgb (12.0-16.0) g/dL Hct (37-47) % MCV (80-100) fL MCH (25-34) pg MCHC (32-36) g/dL RDW Std Deviation (36.4-46.3) fL RDW Coeff of Rakesh (11.5-14.5) % Plt Count (130-400) K/uL MPV (7.4-10.4) fL Immature Gran % (Auto) % Neut % (Auto) % Lymph % (Auto) % [place] % (Auto) % Eos % (Auto) % Baso % (Auto) % Neut # (Auto) (1.4-6.5) K/uL Lymph # (Auto) (1.2-3.4) K/uL [place] # (Auto) (0.11-0.59) K/uL Eos # (Auto) (0-0.5) K/uL Baso # (Auto) (0-0.2) K/uL Immature Gran # (Auto) (0.00-0.02) K/uL Polychromasia Poikilocytosis Anisocytosis PT (9.0-12.0) Seconds INR (0.9-1.1) VBG pH (7.36-7.41) VBG pCO2 (38-50) mmHg VBG pO2 mmHg VBG HCO3 mmol/L VBG O2 Saturation % VBG Base Excess mEq/L Barometric Pressure mm/Hg Sodium (136-145) mmol/L Potassium (3.5-5.1) mmol/L Chloride (98-107) mmol/L Carbon Dioxide (21-32) mmol/L Anion Gap (3-11) BUN (6-23) mg/dl Creatinine (0.6-1.2) mg/dl Est Cr Clr Drug Dosing ml/min Est GFR ( Amer) ml/min Est GFR (Non-Af Amer) ml/min BUN/Creatinine Ratio (10-20) Glucose (70-99(Fasting)) mg/dl Lactate (0.4-2.0) mmol/L Calcium (8.5-10.1) mg/dl Magnesium (1.7-2.4) mg/dl Total Bilirubin (0.2-1.0) mg/dl AST (13-39) U/L ALT (7-52) U/L Alkaline Phosphatase (34-104) U/L Ammonia 15.0 L Troponin I (0-0.04) ng/ml B-Natriuretic Peptide (0-100) pg/ml Total Protein (6.0-8.3) gm/dl Albumin (3.4-5.0) gm/dl Globulin (2.5-4.0) gm/dl Albumin/Globulin Ratio (0.9-2) Lipase (11-82) U/L Procalcitonin (0-0.5) ng/ml TSH (0.300-4.500) uIu/ml Influ A Molecular Assay Negative (Negative) Influ B Molecular Assay Negative (Negative) SARS-CoV-2, RNA, NAAT NEGATIVE (NEGATIVE) Administered Medications Vancomycin HCl 1,500 mg/ (Sodium Chloride) 530 mls @ 200 mls/hr IV NOW ONE Stop: 05/26/21 18:48 Last Infusion: 05/26/21 17:14 Dose: 0 mls/hr Documented by: [id number] Admin: 05/26/21 16:30 Dose: 200 mls/hr Documented by: [id number] Discontinued Medications Piperacillin Sod/Tazobactam Sod (Zosyn) 4.5 gm in 120 mls @ 240 mls/hr IV NOW ONE Stop: 05/26/21 14:50 Last Infusion: 05/26/21 15:24 Dose: 0 mls/hr Documented by: [id number] Admin: 05/26/21 14:49 Dose: 240 mls/hr Documented by: [id number] Ioversol (Optiray 320 125ml) 114 ml IV ONCE ONE Stop: 05/26/21 15:34 Last Admin: 05/26/21 15:33 Dose: 114 ml Documented by: [id number] Imaging Data Radiologist's Impression: Chest X-Ray 05/26/21 14:00 XR chest 1V portable CLINICAL HISTORY: cough/sob. COMPARISON STUDY: 05/22/2021 TECHNIQUE: 1 view of the chest FINDINGS: Single frontal view of the chest demonstrates the cardiomediastinal silhouette to be within normal limits. Compared to previous study, there has been significant interval worsening of bilateral interstitial and alveolar airspace opacities. Findings are most characteristic of a viral type pneumonitis and probable Covid pneumonia. There is no evidence for pleural effusion. There is no evidence for vascular congestion. There is no acute osseous pathology. IMPRESSION: 1. Significant interval worsening of bilateral interstitial and alveolar airspace opacities most characteristic of a viral type pneumonitis and Covid pneumonia. ACT 112: Negative or not required by law. Electronically signed by: Sebastian Salmeron M.D. 05/26/2021 2:24 PM Abdomen/Pelvis CT 05/26/21 14:03 CT ANGIOGRAM OF THE CHEST; CT SCAN OF THE ABDOMEN AND PELVIS WITH IV CONTRAST CLINICAL HISTORY: Atypical chest pain. Upper abdominal pain. Generalized weakness. Dyspnea. Cough. COMPARISON STUDY: Chest CT dated 01/26/2021. Abdominal CT dated 10/21/2020 and 01/31/2011. TECHNIQUE: Following the IV administration of 114 of Optiray 320, CT angiogram of the chest is performed from the upper abdomen to the thoracic inlet utilizing the pulmonary embolus protocol. Images are reviewed in the axial, sagittal, coronal planes. 3-D MIPS images are created and assessed. Subsequently, CT scan of the abdomen and pelvis was performed from the lung bases to the proximal femora. Images are reviewed in the axial, sagittal, and coronal planes. IV contrast was administered without complication. A dose lowering technique was utilized adhering to the principles of ALARA. CT DOSE: 986.10 mGy.cm FINDINGS: CHEST: Thyroid: Imaged portions of the thyroid gland are normal in size and attenuation. Thoracic aorta: There is atherosclerotic calcification of the thoracic aorta, which is normal in caliber and demonstrates standard 3-vessel arch anatomy. No dissection is seen. 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 Pulmonary vasculature: The pulmonary trunk is normal in caliber. There are no filling defects identified in the main, lobar, or segmental pulmonary arteries to indicate pulmonary embolus. Heart: The heart is enlarged and without pericardial effusion. The coronary arteries are densely calcified. Lungs and pleural spaces: Evaluation of the lung parenchyma is degraded by motion artifact. The trachea is clear. There is extensive micronodular disease seen throughout both lungs which likely presents a chronic infectious/inflammatory pneumonitis. There is superimposed multifocal nodular airspace consolidation typical for an infectious/inflammatory pneumonitis. There are likely secretions within the right mainstem bronchus, as well as mucus plugging/debris within the lower lobe airways. No pleural effusion is identified. Degenerative change and hyperkyphosis is noted in the thoracic spine. Arthritic change is seen in the shoulders. Mediastinum: There are numerous mildly enlarged mediastinal lymph nodes which measure up to 17 mm in short axis. Caroline: There are enlarged hilar lymph nodes which measure up to 13 mm in short axis. Axillae: There is no axillary lymphadenopathy. Bony thorax: The skeletal structures are osteopenic. No lytic or blastic lesions are identified. ABDOMEN AND PELVIS: Liver: The contrast-enhanced liver is cirrhotic in morphology and heterogeneous in attenuation. There is nodularity of the hepatic surface contour. Diffusely diminished hepatic attenuation suggests steatosis. There is no intrahepatic or ductal dilatation. The hepatic veins and portal veins are patent. A 12 mm hypo density in the right lobe seen on image #40 has been present dated back to 2010 and is of doubtful significance. Gallbladder: Surgically absent noting clips in the gallbladder fossa. Spleen: Normal in size and attenuation. Pancreas: Moderately atrophic and grossly unremarkable. Adrenal glands: Unremarkable. Kidneys: The contrast enhanced kidneys the maternal cortical atrophy and are without hydronephrosis. The kidneys enhance symmetrically. A 2 cm cyst is noted in the right kidney. A 0.9 cm enhancing cortical lesion in the posterior interpolar right kidney is suggested on image #166. Abdominal vasculature: The abdominal aorta is normal in course and caliber noting advanced atherosclerotic calcification. Stomach and bowel: There is a small hiatal hernia. There is no bowel obstruction. Residual enteric contrast is noted in the left colon. There is moderate to advanced colonic diverticulosis without CT evidence of acute diverticulitis. A duodenal diverticulum is incidentally noted. The appendix is well-visualized and normal. Peritoneum: There is no intraperitoneal free air or abdominal ascites. Lymphadenopathy: None. Pelvic viscera: The bladder and uterus are normal as visualized. A 2.0 cm cystic structure in the right adnexa on image #332 is unchanged. Skeletal structures: The skeletal structures are osteopenic. There is moderate to advanced lumbar sacral spondylosis. No lytic or blastic lesions are seen. IMPRESSION: 1. There is no evidence of pulmonary embolus in the main, lobar, or segmental pulmonary arteries. 2. There is multifocal patchy airspace consolidation superimposed upon chronic infectious/inflammatory change as detailed above. Correlate clinically for evidence of pneumonia/aspiration pneumonitis. Outpatient pulmonology follow-up is recommended. 3. No acute infectious or inflammatory findings are identified in the abdomen or pelvis. 4. Cirrhotic liver morphology. 5. There is a 0.9 cm enhancing nodule suggested within the right kidney. This is pathologically indeterminant. 6-month follow-up with a renal contrast-enhanced renal protocol CT or MRI is recommended for further evaluation and to exclude underlying renal neoplasm. 6. Colonic diverticulosis without CT evidence of acute diverticulitis. 7. Additional findings as above. ACT 112: Positive. There are findings on this exam that require communication between the performing entity and the patient following Patient Test Result Information Act ([place] Act 112) guidelines. Electronically signed by: Ravi Schwarz M.D. 05/26/2021 3:58 PM Chest CTA 05/26/21 14:03 CT ANGIOGRAM OF THE CHEST; CT SCAN OF THE ABDOMEN AND PELVIS WITH IV CONTRAST CLINICAL HISTORY: Atypical chest pain. Upper abdominal pain. Generalized weakness. Dyspnea. Cough. COMPARISON STUDY: Chest CT dated 01/26/2021. Abdominal CT dated 10/21/2020 and 01/31/2011. TECHNIQUE: Following the IV administration of 114 of Optiray 320, CT angiogram of the chest is performed from the upper abdomen to the thoracic inlet utilizing the pulmonary embolus protocol. Images are reviewed in the axial, sagittal, coronal planes. 3-D MIPS images are created and assessed. Subsequently, CT scan of the abdomen and pelvis was performed from the lung bases to the proximal femora. Images are reviewed in the axial, sagittal, and coronal planes. IV contrast was administered without complication. A dose lowering technique was utilized adhering to the principles of ALARA. CT DOSE: 986.10 mGy.cm FINDINGS: CHEST: Thyroid: Imaged portions of the thyroid gland are normal in size and attenuat ion. Thoracic aorta: There is atherosclerotic calcification of the thoracic aorta, which is normal in caliber and demonstrates standard 3-vessel arch anatomy. No dissection is seen. 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 Pulmonary vasculature: The pulmonary trunk is normal in caliber. There are no filling defects identified in the main, lobar, or segmental pulmonary arteries to indicate pulmonary embolus. Heart: The heart is enlarged and without pericardial effusion. The coronary arteries are densely calcified. Lungs and pleural spaces: Evaluation of the lung parenchyma is degraded by motion artifact. The trachea is clear. There is extensive micronodular disease seen throughout both lungs which likely presents a chronic infectious/inflammatory pneumonitis. There is superimposed multifocal nodular airspace consolidation typical for an infectious/inflammatory pneumonitis. There are likely secretions within the right mainstem bronchus, as well as mucus plugging/debris within the lower lobe airways. No pleural effusion is identified. Degenerative change and hyperkyphosis is noted in the thoracic spine. Arthritic change is seen in the shoulders. Mediastinum: There are numerous mildly enlarged mediastinal lymph nodes which measure up to 17 mm in short axis. Caroline: There are enlarged hilar lymph nodes which measure up to 13 mm in short axis. Axillae: There is no axillary lymphadenopathy. Bony thorax: The skeletal structures are osteopenic. No lytic or blastic lesions are identified. ABDOMEN AND PELVIS: Liver: The contrast-enhanced liver is cirrhotic in morphology and heterogeneous in attenuation. There is nodularity of the hepatic surface contour. Diffusely diminished hepatic attenuation suggests steatosis. There is no intrahepatic or ductal dilatation. The hepatic veins and portal veins are patent. A 12 mm hypodensity in the right lobe seen on image #40 has been present dated back to 2010 and is of doubtful significance. Gallbladder: Surgically absent noting clips in the gallbladder fossa. Spleen: Normal in size and attenuation. Pancreas: Moderately atrophic and grossly unremarkable. Adrenal glands: Unremarkable. Kidneys: The contrast enhanced kidneys the maternal cortical atrophy and are without hydronephrosis. The kidneys enhance symmetrically. A 2 cm cyst is noted in the right kidney. A 0.9 cm enhancing cortical lesion in the posterior interpolar right kidney is suggested on image #166. Abdominal vasculature: The abdominal aorta is normal in course and caliber not ing advanced atherosclerotic calcification. Stomach and bowel: There is a small hiatal hernia. There is no bowel obstruction. Residual enteric contrast is noted in the left colon. There is moderate to advanced colonic diverticulosis without CT evidence of acute diverticulitis. A duodenal diverticulum is incidentally noted. The appendix is well-visualized and normal. Peritoneum: There is no intraperitoneal free air or abdominal ascites. Lymphadenopathy: None. Pelvic viscera: The bladder and uterus are normal as visualized. A 2.0 cm cystic structure in the right adnexa on image #332 is unchanged. Skeletal structures: The skeletal structures are osteopenic. There is moderate to advanced lumbar sacral spondylosis. No lytic or blastic lesions are seen. IMPRESSION: 1. There is no evidence of pulmonary embolus in the main, lobar, or segmental pulmonary arteries. 2. There is multifocal patchy airspace consolidation superimposed upon chronic infectious/inflammatory change as detailed above. Correlate clinically for evidence of pneumonia/aspiration pneumonitis. Outpatient pulmonology follow-up is recommended. 3. No acute infectious or inflammatory findings are identified in the abdomen or pelvis. 4. Cirrhotic liver morphology. 5. There is a 0.9 cm enhancing nodule suggested within the right kidney. This is pathologically indeterminant. 6-month follow-up with a renal contrast-enhanced renal protocol CT or MRI is recommended for further evaluation and to exclude underlying renal neoplasm. 6. Colonic diverticulosis without CT evidence of acute diverticulitis. 7. Additional findings as above. ACT 112: Positive. There are findings on this exam that require communication between the performing entity and the patient following Patient Test Result Information Act ([place] Act 112) guidelines. Electronically signed by: Ravi Schwarz M.D. 05/26/2021 3:58 PM Discharge Plan Visit Data Chief Complaint: Shortness of Breath/Dyspnea ED Provider: Roberto Carrizales Discharge Problem: Multifocal pneumonia, Breathlessness, Weakness Patient Disposition: Admitted As Inpatient Forms Stand Alone Forms: [facility] Prescriptions Prescriptions: No Action amlodipine [Norvasc] 10 mg tablet 10 mg PO QAM RF: 0 montelukast [Singulair] 10 mg tablet 10 mg PO HS RF: 0 isosorbide mononitrate 60 mg tablet extended release 24 hr 60 mg PO QAM RF: 0 furosemide 20 mg tablet 20 mg PO QAM RF: 0 nitroglycerin 0.4 mg tablet, sublingual 0.4 mg SL Q5M PRN (Reason: Chest Pain) RF: 0 aspirin 81 mg Tablet,Delayed Release (Dr/Ec) 81 mg PO AMHS RF: 0 duloxetine [Cymbalta] 60 mg capsule,delayed release(DR/EC) 60 mg PO QAM RF: 0 cetirizine 10 mg Tablet 10 mg PO QDL RF: 0 acetaminophen 500 mg tablet 500 mg PO BID RF: 0 metoprolol tartrate 50 mg tablet 50 mg PO BIDM RF: 0 losartan 50 mg Tablet 50 mg PO QAM RF: 0 atorvastatin 40 mg Tablet 40 mg PO HS RF: 0 omeprazole 40 mg Capsule,Delayed Release(Dr/Ec) 40 mg PO DAILYBB RF: 0 Cerovite Senior Tablet 1 tab PO QAM RF: 0 calcium carbonate-vitamin D3 [Oyster Shell Calcium-Vit D3] 500 mg(1,250mg) - 200 unit tablet 1 tab PO QDL RF: 0 fluticasone propion-salmeterol [Advair Diskus] 250-50 mcg/dose blister with device 1 inh INHALATION AMHS RF: 0 ipratropium-albuterol 0.5 mg-3 mg(2.5 mg base)/3 mL solution for nebulization 3 ml INHALATION TID RF: 0 albuterol sulfate 90 mcg/actuation Hfa Aerosol Inhaler 2 puff INHALATION QID PRN (Reason: Shortness Of Breath) RF: 0 buspirone 5 mg tablet 5 mg PO BID RF: 0 Lantus Solostar U-100 Insulin 100 unit/mL (3 mL) insulin pen 14 unit SUBCUT HS RF: 0 prednisone 20 mg tablet 40 mg PO .[id number] RF: 0 prednisone 20 mg tablet 20 mg PO .[id number] RF: 0 insulin aspart U-100 [Novolog U-100 Insulin aspart] 100 unit/mL solution 8 unit subcut AC RF: 0 guaifenesin [Tussin Mucus-Chest Congestion] 100 mg/5 mL liquid 200 mg PO Q4H PRN (Reason: Cough) RF: 0 tramadol 50 mg tablet 25 mg PO TID PRN (Reason: pain) RF: 0 Boost Plus Liquid 1 ea PO DAILY RF: 0 doxycycline hyclate 100 mg capsule 100 mg PO BID RF: 0 ferrous sulfate 325 mg (65 mg iron) tablet 325 mg PO AMHS RF: 0 gabapentin 100 mg capsule 100 mg PO BID RF: 0 melatonin 3 mg Tablet 3 mg PO HS RF: 0 Metamucil Sugar Free Powder 1 tbsp PO BID RF: 0 metformin 1,000 mg tablet 1,000 mg PO QAM RF: 0 polyethylene glycol 3350 [Miralax] 17 gram powder in packet 17 g PO BID RF: 0 nystatin 100,000 unit/mL suspension 5 ml PO QID RF: 0 ondansetron HCl 4 mg tablet 4 mg PO Q6 PRN (Reason: Nausea And Vomiting) RF: 0 vitamin B complex Capsule 1 cap PO .DAILY AT NOON RF: 0 nystatin 100,000 unit/gram Powder 1 applic TOPICAL QS RF: 0 Eucerin Original Lotion 1 applic TOPICAL BID RF: 0 Theracalazinc 1 applic topical QS RF: 0 acetaminophen 325 mg Tablet 650 mg PO Q4 MDD 3g PRN (Reason: Fever Or Pain) RF: 0 ipratropium-albuterol 0.5 mg-3 mg(2.5 mg base)/3 mL solution for nebulization 3 ml INHALATION QID PRN (Reason: Shortness Of Breath Or Wheezing) RF: 0 alum-mag hydroxide-simeth [Maalox Advanced] 200-200-20 mg/5 mL Suspension 30 ml PO Q6 PRN (Reason: nausea/indigestion) RF: 0 Referrals Referrals: Garcia Lira [Primary Care Provider] -
[2021-05-26] MEDS ORDERED: PIPERACILLIN/TAZOBACTAM 4.5 GM/120 ML BAG IV ONE (14:21)
[2021-05-26] MEDS ORDERED: PIPERACILL/TAZOBAC CONSULT ACTIVE PRN ×2 (14:21→22:40)
--- NOTE | 2021-05-26 14:25 | XRay Report ---
XR chest 1V portable CLINICAL HISTORY: cough/sob. COMPARISON STUDY: 05/22/2021 TECHNIQUE: 1 view of the chest FINDINGS: Single frontal view of the chest demonstrates the cardiomediastinal silhouette to be within normal li mits. Compared to previous study, there has been significant interval worsening of bilateral intersti tial and alveolar airspace opacities. Findings are most characteristic of a viral type pneumonitis an d probable Covid pneumonia. There is no evidence for pleural effusion. There is no evidence for vascu lar congestion. There is no acute osseous pathology. IMPRESSION: 1. Significant interval worsening of bilateral interstitial and alveolar airspace opacities most leobarod acteristic of a viral type pneumonitis and Covid pneumonia. ACT 112: Negative or not required by law. Electronically signed by: Sebastian Salmeron M.D. 05/26/2021 2:24 PM
[2021-05-26 14:43] LABS: INR 1.1 (0.9-1.1); Prothrombin Time 11.2 Seconds (9.0-12.0)
[2021-05-26 14:52] LABS: Anisocytosis Present; Basophils # (auto) 0.01 K/uL (0-0.2); Hematocrit (blood only) 27.5 % (37-47); Hemoglobin 8.4 g/dL (12.0-16.0); Immature Granulocytes # (auto) 0.16 K/uL (0.00-0.02); Immature Granulocytes % (auto) 0.5 %; Lymphocytes # (auto) 1.11 K/uL (1.2-3.4); Lymphocytes % (auto) 3.4 %; Mean Corpuscular Hemoglobin 27.7 pg (25-34); Mean Corpuscular Hgb Conc 30.5 g/dL (32-36); Mean Corpuscular Volume 90.8 fL (80-100); Mean Platelet Volume 10.8 fL (7.4-10.4); Monocytes # (auto) 1.25 K/uL (0.11-0.59); Monocytes % (auto) 3.8 %; Neutrophils # (auto) 30.41 K/uL (1.4-6.5); Neutrophils % (auto) 92.3 %; Platelet Count 261 K/uL (130-400); Poikilocytosis Present; Polychromasia 1+; RDW Coefficient of Variation 15.8 % (11.5-14.5); RDW Standard Deviation 52.8 fL (36.4-46.3); Red Blood Count 3.03 M/uL (4.2-5.4); White Blood Count 32.94 K/uL (4.8-10.8)
[2021-05-26 15:03] LABS: Alanine Aminotransferase 21 U/L (7-52); Albumin Globulin Ratio 0.7 (0.9-2); Albumin Level 2.9 gm/dl (3.4-5.0); Alkaline Phosphatase 81 U/L (34-104); Anion Gap 6 (3-11); Aspartate Aminotransferase 25 U/L (13-39); BUN Creatinine Ratio 37.8 (10-20); Bilirubin,Total 0.3 mg/dl (0.2-1.0); Blood Urea Nitrogen 51 mg/dl (6-23); Calcium 9.3 mg/dl (8.5-10.1); Carbon Dioxide 33 mmol/L (21-32); Chloride 102 mmol/L (98-107); Creatinine Clr Calc Pharmacy 33.8 ml/min; Est GFR (Non-African American) 36.2 ml/min; Globulin 4.2 gm/dl (2.5-4.0); Glucose 154 mg/dl (70-99(Fasting)); Lipase 22 U/L (11-82); Magnesium 1.5 mg/dl (1.7-2.4); Potassium 4.3 mmol/L (3.5-5.1); Sodium 141 mmol/L (136-145); Total Protein 7.1 gm/dl (6.0-8.3); Troponin I < 0.03 ng/ml (0-0.04)
[2021-05-26 15:06] LABS: Base Excess VBG 6.3 mEq/L; pH VBG 7.32 (7.36-7.41)
[2021-05-26 15:19] LABS: Influenza A virus by PCR Negative (Negative); Influenza B virus by PCR Negative (Negative)
[2021-05-26] MEDS ORDERED: OPTIRAY 320 125ml IV ONE (15:33)
--- NOTE | 2021-05-26 16:00 | CT Scan Report ---
CT ANGIOGRAM OF THE CHEST; CT SCAN OF THE ABDOMEN AND PELVIS WITH IV CONTRAST CLINICAL HISTORY: Atypical chest pain. Upper abdominal pain. Generalized weakness. Dyspnea. Cough. COMPARISON STUDY: Chest CT dated 01/26/2021. Abdominal CT dated 10/21/2020 and 01/31/2011. TECHNIQUE: Following the IV administration of 114 of Optiray 320, CT angiogram of the chest is perfor med from the upper abdomen to the thoracic inlet utilizing the pulmonary embolus protocol. Images are reviewed in the axial, sagittal, coronal planes. 3-D MIPS images are created and assessed. Subsequen tly, CT scan of the abdomen and pelvis was performed from the lung bases to the proximal femora. Imag es are reviewed in the axial, sagittal, and coronal planes. IV contrast was administered without comp lication. A dose lowering technique was utilized adhering to the principles of ALARA. CT DOSE: 986.10 mGy.cm FINDINGS: CHEST: Thyroid: Imaged portions of the thyroid gland are normal in size and attenuation. Thoracic aorta: There is atherosclerotic calcification of the thoracic aorta, which is normal in rashid tam and demonstrates standard 3-vessel arch anatomy. No dissection is seen. There is high-grade steno sis of the left subclavian artery below the thoracic outlet seen on image #201. Pulmonary vasculature: The pulmonary trunk is normal in caliber. There are no filling defects identif ied in the main, lobar, or segmental pulmonary arteries to indicate pulmonary embolus. Heart: The heart is enlarged and without pericardial effusion. The coronary arteries are densely calc ified. Lungs and pleural spaces: Evaluation of the lung parenchyma is degraded by motion artifact. The trach ea is clear. There is extensive micronodular disease seen throughout both lungs which likely presents a chronic infectious/inflammatory pneumonitis. There is superimposed multifocal nodular airspace con solidation typical for an infectious/inflammatory pneumonitis. There are likely secretions within the right mainstem bronchus, as well as mucus plugging/debris within the lower lobe airways. No pleural effusion is identified. Degenerative change and hyperkyphosis is noted in the thoracic spine. Arthrit ic change is seen in the shoulders. Mediastinum: There are numerous mildly enlarged mediastinal lymph nodes which measure up to 17 mm in short axis. Caroline: There are enlarged hilar lymph nodes which measure up to 13 mm in short axis. Axillae: There is no axillary lymphadenopathy. Bony thorax: The skeletal structures are osteopenic. No lytic or blastic lesions are identified. ABDOMEN AND PELVIS: Liver: The contrast-enhanced liver is cirrhotic in morphology and heterogeneous in attenuation. There is nodularity of the hepatic surface contour. Diffusely diminished hepatic attenuation suggests stea tosis. There is no intrahepatic or ductal dilatation. The hepatic veins and portal veins are patent. A 12 mm hypodensity in the right lobe seen on image #40 has been present dated back to 2010 and is of doubtful significance. Gallbladder: Surgically absent noting clips in the gallbladder fossa. Spleen: Normal in size and attenuation. Pancreas: Moderately atrophic and grossly unremarkable. Adrenal glands: Unremarkable. Kidneys: The contrast enhanced kidneys the maternal cortical atrophy and are without hydronephrosis. The kidneys enhance symmetrically. A 2 cm cyst is noted in the right kidney. A 0.9 cm enhancing corti rubio lesion in the posterior interpolar right kidney is suggested on image #166. Abdominal vasculature: The abdominal aorta is normal in course and caliber noting advanced atheroscle rotic calcification. Stomach and bowel: There is a small hiatal hernia. There is no bowel obstruction. Residual enteric co ntrast is noted in the left colon. There is moderate to advanced colonic diverticulosis without CT ev idence of acute diverticulitis. A duodenal diverticulum is incidentally noted. The appendix is well- visualized and normal. Peritoneum: There is no intraperitoneal free air or abdominal ascites. Lymphadenopathy: None. Pelvic viscera: The bladder and uterus are normal as visualized. A 2.0 cm cystic structure in the rig ht adnexa on image #332 is unchanged. Skeletal structures: The skeletal structures are osteopenic. There is moderate to advanced lumbar sac ral spondylosis. No lytic or blastic lesions are seen. IMPRESSION: 1. There is no evidence of pulmonary embolus in the main, lobar, or segmental pulmonary arteries. 2. There is multifocal patchy airspace consolidation superimposed upon chronic infectious/inflammator y change as detailed above. Correlate clinically for evidence of pneumonia/aspiration pneumonitis. Ou tpatient pulmonology follow-up is recommended. 3. No acute infectious or inflammatory findings are identified in the abdomen or pelvis. 4. Cirrhotic liver morphology. 5. There is a 0.9 cm enhancing nodule suggested within the right kidney. This is pathologically indet erminant. 6-month follow-up with a renal contrast-enhanced renal protocol CT or MRI is recommended fo r further evaluation and to exclude underlying renal neoplasm. 6. Colonic diverticulosis without CT evidence of acute diverticulitis. 7. Additional findings as above. ACT 112: Positive. There are findings on this exam that require communication between the performing entity and the patient following Patient Test Result Information Act ([place] Act 112) guidelines. Electronically signed by: Ravi Schwarz M.D. 05/26/2021 3:58 PM
[2021-05-26] MEDS ORDERED: VANCOMYCIN CONSULT ACTIVE PRN (16:10)
[2021-05-26] MEDS ORDERED: VANCOMYCIN HCL 1,500 MG in SODIUM CHLORIDE 0.9% 500 ML IV ONE (16:10)
--- NOTE | 2021-05-26 16:36 | History & Physical Report ---
Date of Service May 26, 2021 Assessment & Plan (1) Multifocal pneumonia: (2) Acute on chronic respiratory failure with hypoxia: (3) Acute respiratory acidosis: (4) Leukocytosis: (5) Acute worsening of stage 3 chronic kidney disease: (6) Encephalopathy due to infection: Plan: This is an 85-year-old female with PMHx of Asthma/COPD, DMII, HLD, Nocturnal hypoxia, HTN, DUMONT cirrhosis, CAD, Urinary incontinence, Anxiety, Lumbar DDD, Osteoporosis who presents to ED secondary to shortness breath and cough x2 weeks. Multifocal pneumonia Acute on chronic respiratory failure hypoxia hypercapnia Acute respiratory acidosis Admit to PCU Continue BiPAP therapy, repeat VBG at 1999 Continue broad-spectrum antibiotics with IV Zosyn, doxycycline Received IV Vanco in ED, obtain MRSA screen, if positive will continue Vanco IV solumedrol 40mg q12 aggressive pulm toilet with flutter valve, chest PT and nebs sputum culture had ST eval during last admission w/o signs of aspiration Encephalopathy 2/2 to infection and hypercarbia monitor, likely to improve with bipap and source control Leukocytosis wbc has been steadily increasing as outpt may be more pronounced as she has been receiving steroids as outpt as well likely in setting of multifocal pna trend daily Acute on chronic CKD stage III Baseline creatinine 1.0 BUN/creatinine 51 and 1.35 Gentle IV hydration Hypomagnesemia Replete T2DM, insulin-dependent Obtain A1c in a.m., Lantus/NovoLog per protocol Pharmacy consult in setting of underlying infection and steroid use a1c 6.8 03/27/21 CAD HTN HLD Continue metoprolol and Imdur Hold losartan, amlodipine and Lasix due to lower blood pressure, resume as able Diabetic peripheral neuropathy Holding gabapentin in setting of mental status GERD Continue PPI Also placed on IV Pepcid Anemia Unknown etiology, likely chronic H&H 8.4 and 27.5, expect to be slightly lower in setting of hemoconcentration due to dehydration No reports of bleeding Hemoglobin previously stable around 10 Per epic iron studies done today revealed iron 26, TIBC 2 4, transferrin saturation 13 Monitor closely Depression with anxiety continue buspar and duloxetine DVT prophylaxis: SCD/teds for now in setting of reduction of hemoglobin, if remains stable initiate subcu heparin Dispo: Patient to remain hospitalized, likely to return to [place] [facility] upon discharge DNR/DNI PCP: Dr. Maya Discussed with daughter Ashley who agrees with above assessment and tx plan. She confirms pt is a DNR/DNI and would not want to be intubated in setting of worsened respiratory status Pt was seen and examined in collaboration with Dr. Paredes, please see addendum History of Present Illness Chief Complaint: Shortness of breath and cough x2 weeks. Primary Care Provider: [facility] This is an 85-year-old female with PMHx of Asthma/COPD, DMII, HLD, Nocturnal hypoxia, HTN, DUMONT cirrhosis, CAD, Urinary incontinence, Anxiety, Lumbar DDD, Osteoporosis who presents to ED secondary to shortness breath and cough x2 weeks. [facility] as follows discussion with ED provider. Patient able to give minimal history secondary to being on BiPAP. Approximately 2 weeks ago patient developed a productive cough purulent sputum and worsening shortness of breath. She was treated with IM Solu-Medrol and started on oral doxycycline. She was seen and evaluated in ED on 05/22 travails leukocytosis of 17,000k. Chest x-ray at that time revealed interstitial thickening and patchy bilateral opacities concerning for infectious process. He was continued on oral doxycycline and discharged back to SNF. She presents today due to worsening symptoms and hypoxia. At baseline patient is on 2 L at bedtime. Currently she is requiring 5 L in ED. She remained hemodynamically stable in ED although hypoxic. Her VBG did reveal an impending respiratory acidosis. Due to patient becoming more somnolent and fatigued she was placed on BiPAP therapy. Chest x-ray concerning for multifocal pneumonia. She was started on broad-spectrum IV antibiotics with vancomycin and Zosyn. ROS unobtainable from patient due to current cognitive and respiratory status. Allergies Allergy/AdvReac Type Severity Reaction Status Date / Time azelastine Allergy Intermediate elevated bp Verified 05/26/21 14:53 trospium Allergy Intermediate hives Verified 05/26/21 14:53 azithromycin Allergy Mild Rash Verified 05/26/21 14:53 citalopram Allergy Unknown UNKNOWN Verified 05/26/21 14:53 chlorpheniramine AdvReac Intermediate ELEVATED BP Verified 05/26/21 14:53 Corticosteroids AdvReac Intermediate ELEVATED BP Verified 05/26/21 14:53 (Glucocorticoids) fexofenadine AdvReac Intermediate ELEVATED BP Verified 05/26/21 14:53 fluticasone AdvReac Intermediate ELEVATED BP Verified 05/26/21 14:53 hydrocodone AdvReac Intermediate ELEVATED BP Verified 05/26/21 14:53 magnesium salicylate AdvReac Intermediate ELEVATED BP Verified 05/26/21 14:53 salicylates AdvReac Intermediate ELEVATED BP Verified 05/22/21 20:01 Home Medications Medication Instructions Recorded Confirmed Type amlodipine 10 mg tablet (Norvasc) 10 mg PO QAM 11/28/17 05/26/21 History montelukast 10 mg tablet 10 mg PO HS 11/28/17 05/26/21 History (Singulair) aspirin 81 mg tablet,delayed 81 mg PO AMHS 06/16/18 05/26/21 History release duloxetine 60 mg capsule,delayed 60 mg PO QAM 06/16/18 05/26/21 History release (Cymbalta) furosemide 20 mg tablet 20 mg PO QAM 12/26/18 05/26/21 History isosorbide mononitrate 60 mg 60 mg PO QAM 12/26/18 05/26/21 History tablet,extended release 24 hr nitroglycerin 0.4 mg sublingual 0.4 mg SL Q5M PRN 12/26/18 05/26/21 History tablet acetaminophen 500 mg tablet 500 mg PO BID 09/16/19 05/26/21 History cetirizine 10 mg tablet 10 mg PO QDL 09/16/19 05/26/21 History metoprolol tartrate 50 mg tablet 50 mg PO BIDM 09/16/19 05/26/21 History atorvastatin 40 mg tablet 40 mg PO HS 12/23/19 05/26/21 History losartan 50 mg tablet 50 mg PO QAM 12/23/19 05/26/21 History rsdovbbyktay-qscjnbzh-gotajf 1 tab PO QAM 12/23/19 05/26/21 History tablet (Cerovite Senior) omeprazole 40 mg capsule,delayed 40 mg PO DAILYBB 12/23/19 05/26/21 History release calcium carbonate 500 mg-vitamin 1 tab PO QDL 10/14/20 05/26/21 History D3 5 mcg (200 unit) tablet (Oyster Shell Calcium-Vitamin D3) albuterol sulfate 90 mcg/actuation 2 puff INHALATION QID PRN 03/26/21 05/26/21 History aerosol inhaler fluticasone 250 mcg-salmeterol 50 1 inh INHALATION AMHS 03/26/21 05/26/21 History mcg/dose blistr powdr for inhalation (Advair Diskus) ipratropium 0.5 mg-albuterol 3 mg 3 ml INHALATION TID 03/26/21 05/26/21 History (2.5 mg base)/3 mL nebulization soln buspirone 5 mg tablet 5 mg PO BID 03/31/21 05/26/21 History Theracalazinc 1 applic TOPICAL QS 05/22/21 05/26/21 History acetaminophen 325 mg tablet 650 mg PO Q4 PRN MDD 3g 05/22/21 05/26/21 History aluminum-mag hydroxide-simethicone 30 ml PO Q6 PRN 05/22/21 05/26/21 History 200 mg-200 mg-20 mg/5 mL oral susp (Maalox Advanced) doxycycline hyclate 100 mg capsule 100 mg PO BID 05/22/21 05/26/21 History ferrous sulfate 325 mg (65 mg 325 mg PO AMHS 05/22/21 05/26/21 History iron) tablet food supplemt, lactose-reduced 1 ea PO DAILY 05/22/21 05/26/21 History gabapentin 100 mg capsule 100 mg PO BID 05/22/21 05/26/21 History ipratropium 0.5 mg-albuterol 3 mg 3 ml INHALATION QID PRN 05/22/21 05/26/21 History (2.5 mg base)/3 mL nebulization soln lanolin-mineral oil lotion 1 applic TOPICAL BID 05/22/21 05/26/21 History (Eucerin Original) melatonin 3 mg tablet 3 mg PO HS 05/22/21 05/26/21 History metformin 1,000 mg tablet 1,000 mg PO QAM 05/22/21 05/26/21 History nystatin 100,000 unit/gram topical 1 applic TOPICAL QS 05/22/21 05/26/21 History powder nystatin 100,000 unit/mL oral 5 ml PO QID 05/22/21 05/26/21 History suspension ondansetron HCl 4 mg tablet 4 mg PO Q6 PRN 05/22/21 05/26/21 History polyethylene glycol 3350 17 gram 17 g PO BID 05/22/21 05/26/21 History oral powder packet (Miralax) psyllium 1 tbsp PO BID 05/22/21 05/26/21 History vitamin B complex 1 cap PO .DAILY AT NOON 05/22/21 05/26/21 History guaifenesin 100 mg/5 mL oral 200 mg PO Q4H PRN 05/26/21 05/26/21 History liquid (Tussin Mucus-Chest Congestion) insulin aspart U-100 100 unit/mL 8 unit SUBCUT AC 05/26/21 05/26/21 History subcutaneous solution (Novolog U-100 Insulin aspart) insulin glargine 100 unit/mL (3 14 unit SUBCUT HS 05/26/21 05/26/21 History mL) subcutaneous pen (Lantus Solostar U-100 Insulin) prednisone 20 mg tablet 20 mg PO .[id number] 05/26/21 05/26/21 History prednisone 20 mg tablet 40 mg PO .[id number] 05/26/21 05/26/21 History tramadol 50 mg tablet 25 mg PO TID PRN 05/26/21 05/26/21 History Past Med/Surg History Medical History Acute exacerbation of chronic obstructive pulmonary disease Ambulatory dysfunction Anxiety Anxiety (02/04/11) Arteriosclerotic coronary artery disease (02/04/11) Arthritis Asthma Asthma Carotid stenosis Cerebrovascular disease Chronic diastolic heart failure Cough Degenerative disc disease Diabetic neuropathy Diabetic peripheral neuropathy Diverticulosis (02/04/11) Dyslipidemia GERD (gastroesophageal reflux disease) Hyperlipidemia Hypoxia Morbid obesity with BMI of 45.0-49.9, adult (02/04/11) Myocardial Infarction OVER 10 YEARS AGO Peripheral edema Pneumonia Pressure sore ON COCCYX (FROM SITTING) Restless leg syndrome Type 2 diabetes mellitus (02/04/11) Unsteady gait when walking Urinary incontinence Venous insufficiency Surgical History History of anesthesia reaction SLOW TO WAKE UP History of cataract surgery History of colonoscopy History of esophagogastroduodenoscopy (EGD) History of heart artery stent OVER 10 YEARS AGO/1 STENT (FOLLOWS DR. 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 Beliefs That Will Affect Care: None marital status: Single marital status details: [email or web address] Current Living Situation: Personal Care Facility Current Living Situation Comment: [facility] current occupational status: retired How many Children do You have: 2 Feels Safe at Home: Yes Assistive Devices: Denture - Upper, Denture - Lower, Glasses, Oxygen - Continuous and Walker Review of Systems Review of Systems: Unobtainable due to cognitive status Physical Exam Physical Exam: Constitutional: Elderly, female, alert to self only, BiPAP in place,, vitals as above Head: Normocephalic, Atraumatic Eyes: PERRL, conjunctivae normal, anicteric sclerae ENMT: external ear and nose normal, oropharynx normal Neck: trachea midline, no thyromegaly normal visual inspection Respiratory: coarse breath sounds throughout with scattered wheezing and rhonchi, no rales. On Bipap, increased insp/exp effort, no accessory muscle use Cardiovascular: RRR, no murmur, no edema Vessels: no JVD or carotid bruit Chest: normal inspection of chest Abdomen: normal bowel sounds, soft, nontender, no hepatosplenomegaly Musculoskeletal: no cyanosis or clubbing,pt doesn't cooperate for MSK exam Skin: no rashes, warm and dry normal turgor Neurologic: PERRL, EOMI, accommodation nl, no face palsy, no dysarthria CN's II-XI intact bilaterally and moves all extremities Psychiatric: A+Ox1 only - difficult to determine due to pt on bipap therapy, euthymic affect Lymphatic: no cervical or axillary lymphadenopathy : deferred Results & Data Results & Data ([facility]) Vital Signs (Past 12 Hours) Vital Signs Temp Pulse Pulse Resp BP BP Pulse Ox 05/26/21 16:22 83 22 94 05/26/21 15:06 84 16 94 05/26/21 13:42 36.8 C 83 26 H 124/83 93 05/26/21 13:39 36.8 C 81 27 H 124/73 93 Diagnostic Findings Chest X-Ray 05/26/21 14:00 XR chest 1V portable CLINICAL HISTORY: cough/sob. COMPARISON STUDY: 05/22/2021 TECHNIQUE: 1 view of the chest FINDINGS: Single frontal view of the chest demonstrates the cardiomediastinal silhouette to be within normal limits. Compared to previous study, there has been significant interval worsening of bilateral interstitial and alveolar airspace opacities. Findings are most characteristic of a viral type pneumonitis and probable Covid pneumonia. There is no evidence for pleural effusion. There is no evidence for vascular congestion. There is no acute osseous pathology. IMPRESSION: 1. Significant interval worsening of bilateral interstitial and alveolar airs pace opacities most characteristic of a viral type pneumonitis and Covid pneumonia. ACT 112: Negative or not required by law. Electronically signed by: Sebastian Salmeron M.D. 05/26/2021 2:24 PM Abdomen/Pelvis CT 05/26/21 14:03 CT ANGIOGRAM OF THE CHEST; CT SCAN OF THE ABDOMEN AND PELVIS WITH IV CONTRAST CLINICAL HISTORY: Atypical chest pain. Upper abdominal pain. Generalized weakness. Dyspnea. Cough. COMPARISON STUDY: Chest CT dated 01/26/2021. Abdominal CT dated 10/21/2020 and 01/31/2011. TECHNIQUE: Following the IV administration of 114 of Optiray 320, CT angiogram of the chest is performed from the upper abdomen to the thoracic inlet utilizing the pulmonary embolus protocol. Images are reviewed in the axial, sagittal, coronal planes. 3-D MIPS images are created and assessed. Subsequently, CT scan of the abdomen and pelvis was performed from the lung bases to the proximal femora. Images are reviewed in the axial, sagittal, and coronal planes. IV contrast was administered without complication. A dose lowering technique was utilized adhering to the principles of ALARA. CT DOSE: 986.10 mGy.cm FINDINGS: CHEST: Thyroid: Imaged portions of the thyroid gland are normal in size and attenuation. Thoracic aorta: There is atherosclerotic calcification of the thoracic aorta, which is normal in caliber and demonstrates standard 3-vessel arch anatomy. No dissection is seen. 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 Pulmonary vasculature: The pulmonary trunk is normal in caliber. There are no filling defects identified in the main, lobar, or segmental pulmonary arteries to indicate pulmonary embolus. Heart: The heart is enlarged and without pericardial effusion. The coronary arteries are densely calcified. Lungs and pleural spaces: Evaluation of the lung parenchyma is degraded by motion artifact. The trachea is clear. There is extensive micronodular disease seen throughout both lungs which likely presents a chronic infectious/inflammatory pneumonitis. There is superimposed multifocal nodular airspace consolidation typical for an infectious/inflammatory pneumonitis. There are likely secretions within the right mainstem bronchus, as well as mucus plugging/debris within the lower lobe airways. No pleural effusion is identified. Degenerative change and hyperkyphosis is noted in the thoracic spine. Arthritic change is seen in the shoulders. Mediastinum: There are numerous mildly enlarged mediastinal lymph nodes which measure up to 17 mm in short axis. Caroline: There are enlarged hilar lymph nodes which measure up to 13 mm in short axis. Axillae: There is no axillary lymphadenopathy. Bony thorax: The skeletal structures are osteopenic. No lytic or blastic lesions are identified. ABDOMEN AND PELVIS: Liver: The contrast-enhanced liver is cirrhotic in morphology and heterogeneous in attenuation. There is nodularity of the hepatic surface contour. Diffusely diminished hepatic attenuation suggests steatosis. There is no intrahepatic or ductal dilatation. The hepatic veins and portal veins are patent. A 12 mm hypodensity in the right lobe seen on image #40 has been present dated back to 2010 and is of doubtful significance. Gallbladder: Surgically absent noting clips in the gallbladder fossa. Spleen: Normal in size and attenuation. Pancreas: Moderately atrophic and grossly unremarkable. Adrenal glands: Unremarkable. Kidneys: The contrast enhanced kidneys the maternal cortical atrophy and are without hydronephrosis. The kidneys enhance symmetrically. A 2 cm cyst is noted in the right kidney. A 0.9 cm enhancing cortical lesion in the posterior interpolar right kidney is suggested on image #166. Abdominal vasculature: The abdominal aorta is normal in course and caliber noting advanced atherosclerotic calcification. Stomach and bowel: There is a small hiatal hernia. There is no bowel obstruction. Residual enteric contrast is noted in the left colon. There is moderate to advanced colonic diverticulosis without CT evidence of acute diverticulitis. A duodenal diverticulum is incidentally noted. The appendix is well-visualized and normal. Peritoneum: There is no intraperitoneal free air or abdominal ascites. Lymphadenopathy: None. Pelvic viscera: The bladder and uterus are normal as visualized. A 2.0 cm cystic structure in the right adnexa on image #332 is unchanged. Skeletal structures: The skeletal structures are osteopenic. There is moderate to advanced lumbar sacral spondylosis. No lytic or blastic lesions are seen. IMPRESSION: 1. There is no evidence of pulmonary embolus in the main, lobar, or segmental pulmonary arteries. 2. There is multifocal patchy airspace consolidation superimposed upon chronic infectious/inflammatory change as detailed above. Correlate clinically for evidence of pneumonia/aspiration pneumonitis. Outpatient pulmonology follow-up is recommended. 3. No acute infectious or inflammatory findings are identified in the abdomen or pelvis. 4. Cirrhotic liver morphology. 5. There is a 0.9 cm enhancing nodule suggested within the right kidney. This is pathologically indeterminant. 6-month follow-up with a renal contrast-enhanced renal protocol CT or MRI is recommended for further evaluation and to exclude underlying renal neoplasm. 6. Colonic diverticulosis without CT evidence of acute diverticulitis. 7. Additional findings as above. ACT 112: Positive. There are findings on this exam that require communication between the performing entity and the patient following Patient Test Result Information Act ([place] Act 112) guidelines. Electronically signed by: Ravi Schwarz M.D. 05/26/2021 3:58 PM Chest CTA 05/26/21 14:03 CT ANGIOGRAM OF THE CHEST; CT SCAN OF THE ABDOMEN AND PELVIS WITH IV CONTRAST CLINICAL HISTORY: Atypical chest pain. Upper abdominal pain. Generalized weakness. Dyspnea. Cough. COMPARISON STUDY: Chest CT dated 01/26/2021. Abdominal CT dated 10/21/2020 and 01/31/2011. TECHNIQUE: Following the IV administration of 114 of Optiray 320, CT angiogram of the chest is performed from the upper abdomen to the thoracic inlet utilizing the pulmonary embolus protocol. Images are reviewed in the axial, sagittal, coronal planes. 3-D MIPS images are created and assessed. Subsequently, CT scan of the abdomen and pelvis was performed from the lung bases to the proximal femora. Images are reviewed in the axial, sagittal, and coronal planes. IV contrast was administered without complication. A dose lowering technique was utilized adhering to the principles of ALARA. CT DOSE: 986.10 mGy.cm FINDINGS: CHEST: Thyroid: Imaged portions of the thyroid gland are normal in size and attenuation. Thoracic aorta: There is atherosclerotic calcification of the thoracic aorta, which is normal in caliber and demonstrates standard 3-vessel arch anatomy. No dissection is seen. 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 Pulmonary vasculature: The pulmonary trunk is normal in caliber. There are no filling defects identified in the main, lobar, or segmental pulmonary arteries to indicate pulmonary embolus. Heart: The heart is enlarged and without pericardial effusion. The coronary arteries are densely calcified. Lungs and pleural spaces: Evaluation of the lung parenchyma is degraded by motion artifact. The trachea is clear. There is extensive micronodular disease seen throughout both lungs which likely presents a chronic infectious/inflammatory pneumonitis. There is superimposed multifocal nodular airspace consolidation typical for an infectious/inflammatory pneumonitis. There are likely secretions within the right mainstem bronchus, as well as mucus plugging/debris within the lower lobe airways. No pleural effusion is identified. Degenerative change and hyperkyphosis is noted in the thoracic spine. Arthritic change is seen in the shoulders. Mediastinum: There are numerous mildly enlarged mediastinal lymph nodes which measure up to 17 mm in short axis. Caroline: There are enlarged hilar lymph nodes which measure up to 13 mm in short axis. Axillae: There is no axillary lymphadenopathy. Bony thorax: The skeletal structures are osteopenic. No lytic or blastic lesions are identified. ABDOMEN AND PELVIS: Liver: The contrast-enhanced liver is cirrhotic in morphology and heterogeneous in attenuation. There is nodularity of the hepatic surface contour. Diffusely diminished hepatic attenuation suggests steatosis. There is no intrahepatic or ductal dilatation. The hepatic veins and portal veins are patent. A 12 mm hypodensity in the right lobe seen on image #40 has been present dated back to 2010 and is of doubtful significance. Gallbladder: Surgically absent noting clips in the gallbladder fossa. Spleen: Normal in size and attenuation. Pancreas: Moderately atrophic and grossly unremarkable. Adrenal glands: Unremarkable. Kidneys: The contrast enhanced kidneys the maternal cortical atrophy and are without hydronephrosis. The kidneys enhance symmetrically. A 2 cm cyst is noted in the right kidney. A 0.9 cm enhancing cortical lesion in the posterior interpolar right kidney is suggested on image #166. Abdominal vasculature: The abdominal aorta is normal in course and caliber noting advanced atherosclerotic calcification. Stomach and bowel: There is a small hiatal hernia. There is no bowel obstruction. Residual enteric contrast is noted in the left colon. There is moderate to advanced colonic diverticulosis without CT evidence of acute diverticulitis. A duodenal diverticulum is incidentally noted. The appendix is well-visualized and normal. Peritoneum: There is no intraperitoneal free air or abdominal ascites. Lymphadenopathy: None. Pelvic viscera: The bladder and uterus are normal as visualized. A 2.0 cm cystic structure in the right adnexa on image #332 is unchanged. Skeletal structures: The skeletal structures are osteopenic. There is moderate to advanced lumbar sacral spondylosis. No lytic or blastic lesions are seen. IMPRESSION: 1. There is no evidence of pulmonary embolus in the main, lobar, or segmental pulmonary arteries. 2. There is multifocal patchy airspace consolidation superimposed upon chronic infectious/inflammatory change as detailed above. Correlate clinically for evidence of pneumonia/aspiration pneumonitis. Outpatient pulmonology follow-up is recommended. 3. No acute infectious or inflammatory findings are identified in the abdomen or pelvis. 4. Cirrhotic liver morphology. 5. There is a 0.9 cm enhancing nodule suggested within the right kidney. This is pathologically indeterminant. 6-month follow-up with a renal contrast-enhanced renal protocol CT or MRI is recommended for further evaluation and to exclude underlying renal neoplasm. 6. Colonic diverticulosis without CT evidence of acute diverticulitis. 7. Additional findings as above. ACT 112: Positive. There are findings on this exam that require communication between the performing entity and the patient following Patient Test Result Information Act ([place] Act 112) guidelines. Electronically signed by: Ravi Schwarz M.D. 05/26/2021 3:58 PM Medications Administered Medication List Vancomycin HCl 1,500 mg/ (Sodium Chloride) 530 mls @ 200 mls/hr IV NOW ONE Stop: 05/26/21 18:48 Last Admin: 05/26/21 16:30 Dose: 200 mls/hr Documented by: [id number] Discontinued Medications Piperacillin Sod/Tazobactam Sod (Zosyn) 4.5 gm in 120 mls @ 240 mls/hr IV NOW ONE Stop: 05/26/21 14:50 Last Infusion: 05/26/21 15:24 Dose: 0 mls/hr Documented by: [id number] Admin: 05/26/21 14:49 Dose: 240 mls/hr Documented by: [id number] Ioversol (Optiray 320 125ml) 114 ml IV ONCE ONE Stop: 05/26/21 15:34 Last Admin: 05/26/21 15:33 Dose: 114 ml Documented by: [id number] ECG Rate (beats per minute): 80 Rhythm: normal sinus COVID-19 Results Results COVID-19 Adm Lab Results: RBC 3.03 M/uL (4.2-5.4) L 05/26/21 WBC 32.94 K/uL (4.8-10.8) H* 05/26/21 Hgb 8.4 g/dL (12.0-16.0) L 05/26/21 Hct 27.5 % (37-47) L 05/26/21 Plt Count 261 K/uL (130-400) 05/26/21 Neutrophils (%) (Auto) 92.3 % 05/26/21 Lymphocytes (%) (Auto) 3.4 % 05/26/21 Monocytes # (Auto) 1.25 K/uL (0.11-0.59) H 05/26/21 Eosinophils # (Auto) 0.00 K/uL (0-0.5) 05/26/21 Immature Granulocyte % (Auto) 0.5 % 05/26/21 Neutrophils # (Auto) 30.41 K/uL (1.4-6.5) H 05/26/21 Lymphocytes # (Auto) 1.11 K/uL (1.2-3.4) L 05/26/21 Monocytes # (Auto) 1.25 K/uL (0.11-0.59) H 05/26/21 Eosinophils # (Auto) 0.00 K/uL (0-0.5) 05/26/21 Basophils # (Auto) 0.01 K/uL (0-0.2) 05/26/21 Immature Granulocyte # (Auto) 0.16 K/uL (0.00-0.02) H 05/26/21 Polychromasia 1+ 05/26/21 Poikilocytosis Present 05/26/21 Anisocytosis Present 05/26/21 Na 141 mmol/L (136-145) 05/26/21 K 4.3 mmol/L (3.5-5.1) 05/26/21 Cl 102 mmol/L (98-107) 05/26/21 CO2 33 mmol/L (21-32) H 05/26/21 Anion Gap 6 (3-11) 05/26/21 BUN 51 mg/dl (6-23) H 05/26/21 Creatinine 1.35 mg/dl (0.6-1.2) H 05/26/21 BUN/Creatinine Ratio 37.8 (10-20) H 05/26/21 Glucose Level 154 mg/dl (70-99(Fasting)) H 05/26/21 Ca 9.3 mg/dl (8.5-10.1) 05/26/21 Total Bilirubin 0.3 mg/dl (0.2-1.0) 05/26/21 AST/SGOT 25 U/L (13-39) 05/26/21 ALT/SGPT 21 U/L (7-52) 05/26/21 Alkaline Phosphatase 81 U/L (34-104) 05/26/21 Total Protein 7.1 gm/dl (6.0-8.3) 05/26/21 Albumin 2.9 gm/dl (3.4-5.0) L 05/26/21 Globulin 4.2 gm/dl (2.5-4.0) H 05/26/21 Albumin/Globulin Ratio 0.7 (0.9-2) L 05/26/21 Troponin I < 0.03 ng/ml (0-0.04) 05/26/21 Procalcitonin 0.49 ng/ml (0-0.5) 05/26/21 INR 1.1 (0.9-1.1) 05/26/21 SARS-CoV-2, RNA, NAAT NEGATIVE (NEGATIVE) 05/26/21 Chest X-Ray 05/26/21 Code Status & VTE Plan Code Status DNR/DNI VTE Prophylaxis Plan VTE Prophylaxis will be ordered: Yes Supervising Physician Co-Signing Physician Notes Attending addendum: The patient was seen and examined in the emergency room She is an 85-year-old female with significant past medical history of asthma/COPD, type 2 diabetes, nocturnal hypoxia, hypertension, Dum[place] cirrhosis, anxiety and osteoporosis apparently has been complaining of shortness of breath for the last 2 weeks Noted to have multifocal pneumonia with increasing white count and requiring BiPAP on admission She feels a little better since admission On examination Lying in bed comfortably on BiPAP No apparent distress at rest Hemodynamically stable and is afebrile Chestbilateral coarse crackles HeartS1-S2, regular Abdomenbenign Extremitiesno edema CNSalert, awake. Moves all limbs equally Plan admission labs, EKG and imaging studies reviewed Has multifocal pneumonia Acute on chronic respiratory failure with hypoxia SAPPHIRE Acute metabolic encephalopathy Has been started on empiric antibiotic and steroid Agree with assessment and plan as outlined above by Wendi Paredes
--- NOTE | 2021-05-26 17:12 | Electrocardiogram Report ---
Test Reason : Blood Pressure : / mmHG Vent. Rate : 080 BPM Atrial Rate : 080 BPM P-R Int : 132 ms QRS Dur : 076 ms QT Int : 374 ms P-R-T Axes : 056 019 052 degrees QTc Int : 431 ms Normal sinus rhythm Possible Left atrial enlargement Poor R wave progression, consider anterior VA vs. lead placement vs. LVH Abnormal ECG When compared with ECG of 22-MAY-2021 19:12, No significant change was found Confirmed by Boogie Ram ([id number] on 05/26/2021 5:12:14 PM Referred By: Garcia Calderon Confirmed By:Jerel Ram
[2021-05-26] MEDS: MAGNESIUM SULFATE / D5W 1 GM/100 ML BAG IV SCH ×2 (18:37→19:42)
[2021-05-26] MEDS ORDERED: GLUCOSE 10 TABS/TUBE PO PRN (22:40)
[2021-05-26] MEDS ORDERED: GLUCAGON FOR INJ 1 MG VIAL SQ PRN (22:40)
[2021-05-26] MEDS ORDERED: PHARMACY GLYCEMIC MGMT CONSULT PRN (22:40)
[2021-05-26] MEDS ORDERED: INSULIN GLARGINE SOLOSTAR 100 UNITS/ML 3 ML PEN SC ONE ×2 (22:40→23:15)
[2021-05-26] MEDS ORDERED: ALUMINUM/MAGNESIUM SUSP 30 ML UDC PO PRN (22:40)
[2021-05-26] MEDS ORDERED: POLYETHYLENE (MIRALAX) 17 GM PACK PO PRN (22:40)
[2021-05-26] MEDS ORDERED: ONDANSETRON INJ 2 MG/ML 2 ML VIAL IV PRN (22:40)
[2021-05-26] MEDS ORDERED: DEXTROSE 50% 50 ML SYRINGE IV PRN (22:40)
[2021-05-26] MEDS ORDERED: GLUCOSE 40% GEL 15 GM TUBE PO PRN (22:40)
[2021-05-26] MEDS ORDERED: MAGNESIUM HYDROXIDE SUSP 30 ML UDC PO PRN (22:40)
[2021-05-26] MEDS ORDERED: CARBOHYDRATES FOR HYPOGLYCEMIA PO PRN (22:40)
[2021-05-26] MEDS ORDERED: FLUTICASONE/SALMETEROL 250/50 (ADVAIR) 14 PUFF/1 INHALER INH SCH (22:40)
[2021-05-26] MEDS ORDERED: ALBUT/IPRATROP 3MG/0.5MG NEB 3 ML VIAL NEB PRN (23:05)
[2021-05-26] MEDS ORDERED: PIPERACILLIN/TAZOBACTAM 3.375 GM in DEXTROSE 5% 100 ML IV ONE (23:15)
[2021-05-26] MEDS: ALBUT/IPRATROP 3MG/0.5MG NEB 3 ML VIAL NEB SCH (23:20)
[2021-05-26 23:43] LABS: pH VBG 7.34 (7.36-7.41)
[2021-05-27] MEDS: FERROUS SULFATE 325 MG TAB PO SCH ×3 (00:01→20:14)
[2021-05-27] MEDS: busPIRone 5 MG TAB PO SCH ×3 (00:01→20:12)
[2021-05-27] MEDS: METOPROLOL TARTRATE 50 MG TAB PO SCH ×3 (00:01→17:17)
[2021-05-27] MEDS: FLUTICASONE/VILANTEROL 200/25MCG 14 PUFFS/INHALER INH SCH ×2 (00:02→09:20)
[2021-05-27] MEDS: FAMOTIDINE 20 MG in SYRINGE 3 ML IV SCH ×2 (00:03→09:17)
[2021-05-27] MEDS: INSULIN ASPART PER UNIT SC SCH ×5 (00:04→20:31)
[2021-05-27] MEDS: SODIUM CHLORIDE 0.9% 1000ML 1,000 ML IV SCH ×2 (00:05→17:17)
[2021-05-27] MEDS ORDERED: INSULIN GLARGINE SOLOSTAR 100 UNITS/ML 3 ML PEN SC ONE ×3 (00:45→21:00)
[2021-05-27] MEDS ORDERED: INSULIN ASPART PER UNIT SC ONE (02:00)
[2021-05-27 02:37] LABS: Appearance Urine Clear (Clear); Bacteria Urine Automated Negative (Negative); Bilirubin Urine Negative (Negative); Blood Urine Trace (Negative); Color Urine Yellow; Epithelial Cell Urine Auto 20-30 /lpf (0-5); Glucose Urine UA Negative (Negative); Ketones Urine Negative (Negative); Leukocyte Esterase Urine Negative (Negative); Nitrite Urine Negative (Negative); Protein Urine Trace (Negative); Specific Gravity Urine 1.038 (1.000-1.030); Urobilinogen Urine Negative (Negative)
[2021-05-27] MEDS: PIPERACILLIN/TAZOBACTAM 3.375 GM in DEXTROSE 5% 100 ML IV SCH ×3 (05:03→21:30)
[2021-05-27] MEDS: PANTOprazole 40 MG TAB PO SCH (05:32)
[2021-05-27] MEDS: ALBUT/IPRATROP 3MG/0.5MG NEB 3 ML VIAL NEB SCH ×4 (07:06→19:26)
[2021-05-27 07:08] LABS: Hematocrit (blood only) 27.9 % (37-47); Hemoglobin 8.6 g/dL (12.0-16.0); Mean Corpuscular Hemoglobin 27.7 pg (25-34); Mean Corpuscular Hgb Conc 30.8 g/dL (32-36); Mean Platelet Volume 10.6 fL (7.4-10.4); Platelet Count 236 K/uL (130-400); RDW Coefficient of Variation 15.8 % (11.5-14.5); RDW Standard Deviation 51.3 fL (36.4-46.3); White Blood Count 25.56 K/uL (4.8-10.8)
[2021-05-27 07:37] LABS: Basophils # (auto) 0.01 K/uL (0-0.2); Immature Granulocytes # (auto) 0.21 K/uL (0.00-0.02); Immature Granulocytes % (auto) 0.8 %; Lymphocytes # (auto) 1.16 K/uL (1.2-3.4); Lymphocytes % (auto) 4.5 %; Monocytes # (auto) 1.09 K/uL (0.11-0.59); Monocytes % (auto) 4.3 %; Neutrophils # (auto) 23.09 K/uL (1.4-6.5); Neutrophils % (auto) 90.4 %
[2021-05-27 07:38] LABS: Albumin Globulin Ratio 0.7 (0.9-2); Albumin Level 2.8 gm/dl (3.4-5.0); BUN Creatinine Ratio 38.9 (10-20); Bilirubin,Total 0.3 mg/dl (0.2-1.0); Calcium 9.2 mg/dl (8.5-10.1); Creatinine Clr Calc Pharmacy 47.5 ml/min; Est GFR (African American) 64.2 ml/min; Est GFR (Non-African American) 55.4 ml/min; Magnesium 2.1 mg/dl (1.7-2.4); Potassium 4.2 mmol/L (3.5-5.1); Total Protein 6.8 gm/dl (6.0-8.3)
[2021-05-27 07:42] LABS: Estimated Average Glucose 166 mg/dl; Hemoglobin A1C 7.4 % (4.5-5.6)
--- NOTE | 2021-05-27 08:49 | Pharmacy Report ---
Pharmacy Glycemic Short Note 2 - Date of Service May 27, 2021 - Glycemic Short BSG Results (Last 24 hours): 05/26/21 05/26/21 05/27/21 13:46 22:51 02:01 Glucose 154 H POC Glucose 263 H 222 H 05/27/21 05/27/21 05:48 07:21 Glucose 96 POC Glucose 148 H OUTPATIENT ANTIDIABETIC REGIMEN: * Lantus 14 units SC HS * Novolog 8 units SC AC * Metformin 1 g PO qAM * HbA1c: 7.4% (05/27/21) ASSESSMENT: * BH is a 85 year old female admitted evening of 05/26/21 with multifocal pneumonia * Pertinent PMH includes, T2DM (reasonably controlled as outpatient based on HbA1c 7.4%), CKD, and COPD * BSGs elevated overnight, 263 and 222 mg/dL * Lantus dose and Novolog parameters entered to align with prior inpatient data * Received Solu-medrol 40 mg IV last evening, dosed BID ongoing * Fasting BSG of 148 mg/dL this morning * Lunch BSG elevated at 326, repeat of 292 mg/dL - discussed with RN, patient initially did not eat breakfast, but then ended up eating around 10:30 AM (this meal was not covered with Novolog). Will not overreact to this high. PLAN FOR INPATIENT GLYCEMIC CONTROL: * Hold outpatient oral diabetes medications * Basal insulin * Lantus 24 units SC given overnight * Will start Lantus 15 units SC BID (first dose this evening) to be given with methylprednisolone * Bolus insulin * NovoLog per scale ACHS or Q6hrs while NPO * Goal Range: Low 110 mg/dL - High 140 mg/dL * Correction Factor: 30 mg/dL/unit * Nutritional / Prandial insulin per carb ratio of 1 unit per 6 grams CHO consumed
[2021-05-27] MEDS: methylPREDNISolone 40 MG in SYRINGE 0 ML IV SCH ×2 (09:16→20:24)
[2021-05-27] MEDS: DOXYCYCLINE HYCLATE 100 MG CAP PO SCH ×3 (09:18→20:13)
[2021-05-27] MEDS: ASPIRIN 81 MG ECTAB PO SCH ×3 (09:18→20:15)
[2021-05-27] MEDS: DULoxetine HCL 60 MG CAP PO SCH (09:19)
[2021-05-27] MEDS: ISOSORBIDE MONO EXTENDED REL 60 MG TABCR PO SCH (09:20)
[2021-05-27] MEDS: guaiFENesin 600 MG TABCR PO SCH ×3 (09:20→20:14)
[2021-05-27] MEDS: CEROVITE ADV FORMULA TAB PO SCH (09:21)
[2021-05-27] MEDS: CALCIUM 600MG + VIT D 400 IU TAB PO SCH (12:41)
[2021-05-27] MEDS: CETIRIZINE HCL 10 MG TABLET PO SCH (12:41)
[2021-05-27] MEDS: MONTELUKAST SODIUM 10 MG TABLET PO SCH ×2 (20:13)
[2021-05-27] MEDS: ATORVASTATIN 40 MG TAB PO SCH ×2 (20:13)
[2021-05-27] MEDS ORDERED: OLANZapine 10 MG/2.1 ML SDV IM PRN (21:12)
--- NOTE | 2021-05-27 23:45 | Hospitalist Progress Note ---
Date of Service May 27, 2021 Assessment & Plan (1) Multifocal pneumonia: (2) Acute on chronic respiratory failure with hypoxia: (3) Acute respiratory acidosis: (4) Leukocytosis: (5) Acute worsening of stage 3 chronic kidney disease: (6) Encephalopathy due to infection: Plan: This is an 85-year-old female with PMHx of Asthma/COPD, DMII, HLD, Nocturnal hypoxia, HTN, OJEDA cirrhosis, CAD, Urinary incontinence, Anxiety, Lumbar DDD, Osteoporosis who presents to ED secondary to shortness breath and cough x2 weeks. Multifocal pneumonia Acute on chronic respiratory failure hypoxia hypercapnia Acute respiratory acidosis CTA chest showed multifocal patchy airspace consolidation superimposed upon chronic infectious/inflammatory CXR showed Significant interval worsening of bilateral interstitial and alveolar airspace opacities most characteristic of a viral type pneumonitis and Covid pneumonia. Received IV Vanco on admission Currently on broad-spectrum antibiotics with IV Zosyn, doxycycline Received IV Vanco in ED, obtain MRSA screen, if positive will continue Vanco IV Solu-Medrol tapered to once daily Continue aggressive pulm toilet with flutter valve, chest PT and nebs Continue BiPAP as needed Blood culture no growth Sputum culture did not collected yet Continue oxygen supplement Continue monitor closely Encephalopathy 2/2 to infection and hypercarbia monitor, likely to improve with bipap and source control Clinically improved Leukocytosis wbc has been steadily increasing as outpt Likely in the setting of pneumonia as well as steroid that was given outpatient Continue IV antibiotic with Zosyn and doxy Blood culture no growth so far Acute on chronic CKD stage III Baseline creatinine 1.0, BUN/creatinine 51 and 1.35 on admission Received IV hydration Creatinine 0.95 today Continue monitor BMP Hypomagnesemia Magnesium stable T2DM, insulin-dependent Most recent hemoglobin A1c 7.4 Pharmacy on board for glycemic management while on steroids On Lantus and NovoLog sliding scale Continue monitor blood sugar CAD HTN HLD Continue metoprolol and Imdur Will resume losartan, amlodipine and Lasix Continue monitor BP Diabetic peripheral neuropathy Continue to hold gabapentin in setting of mental status GERD Continue PPI Also placed on IV Pepcid Anemia Unknown etiology, likely chronic Hemoglobin 8.6 today No reports of bleeding Hemoglobin previously stable around 10 Per epic iron studies done revealed iron 26, TIBC 2 4, transferrin saturation 13 Monitor closely Depression with anxiety continue buspar and duloxetine DVT prophylaxis: SCD/teds for now in setting of reduction of hemoglobin, if remains stable initiate subcu heparin Dispo: likely to return to [facility] upon discharge DNR/DNI PCP: Dr. Maya Admission and Anticipated Discharge Date Admission Date: May 26, 2021 Subjective Patient was seen and examined for follow-up of shortness of breath Lying in bed with no acute distress getting ready to eat her lunch She said her breathing it slightly better compared to when she came Denies any chest pain, palpitation, dizziness, and fever. Review of Systems Review of Systems: All systems reviewed & are unremarkable except as noted in Subjective Physical Exam Physical Exam: General- No acute distress Head- atraumatic Eyes- PERRL, EOMI, ENT- oropharynx clear Neck- supple, no JVD Lungs- +coarse breath sounds Heart- regular rhythm; no murmur Abdomen- normal bowel sounds, soft, nontender Extremities- no calf tenderness Neuro- alert, oriented x 3; PERRL, EOMI; no facial palsy; no dysarthria Skin- warm & dry Results & Data Results & Data ([facility]) Vital Signs (Past 12 Hours) Vital Signs Temp Pulse Pulse Resp BP Pulse Ox 05/27/21 23:00 36.5 C 81 20 169/70 H 95 05/27/21 22:58 83 05/27/21 22:35 82 35 H 94 05/27/21 20:00 67 13 94 05/27/21 19:36 36.6 C 77 18 145/65 H 96 05/27/21 17:21 91 05/27/21 17:00 88 L 05/27/21 15:48 36.9 C 85 20 132/68 94 05/27/21 15:18 82 18 92 05/27/21 15:08 93
[2021-05-28] MEDS: INSULIN ASPART PER UNIT SC SCH ×6 (00:41→20:49)
[2021-05-28] MEDS: PANTOprazole 40 MG TAB PO SCH (05:40)
[2021-05-28] MEDS: PIPERACILLIN/TAZOBACTAM 3.375 GM in DEXTROSE 5% 100 ML IV SCH ×3 (05:40→21:22)
[2021-05-28 06:38] LABS: Hematocrit (blood only) 26.1 % (37-47); Hemoglobin 7.8 g/dL (12.0-16.0); Mean Corpuscular Hemoglobin 27.5 pg (25-34); Mean Corpuscular Hgb Conc 29.9 g/dL (32-36); Mean Corpuscular Volume 91.9 fL (80-100); Mean Platelet Volume 10.3 fL (7.4-10.4); Platelet Count 217 K/uL (130-400); RDW Coefficient of Variation 15.8 % (11.5-14.5); Red Blood Count 2.84 M/uL (4.2-5.4); White Blood Count 19.25 K/uL (4.8-10.8)
[2021-05-28 07:03] LABS: BUN Creatinine Ratio 40.9 (10-20); Calcium 8.7 mg/dl (8.5-10.1); Creatinine Clr Calc Pharmacy 47.1 ml/min; Est GFR (African American) 70.4 ml/min; Est GFR (Non-African American) 60.8 ml/min; Magnesium 1.8 mg/dl (1.7-2.4); Potassium 4.1 mmol/L (3.5-5.1)
[2021-05-28] MEDS: ALBUT/IPRATROP 3MG/0.5MG NEB 3 ML VIAL NEB SCH ×4 (07:19→19:50)
[2021-05-28] MEDS: amLODIPine BESYLATE 5 MG TAB PO SCH (08:09)
[2021-05-28] MEDS: METOPROLOL TARTRATE 50 MG TAB PO SCH ×2 (08:09→17:26)
[2021-05-28] MEDS: DOXYCYCLINE HYCLATE 100 MG CAP PO SCH ×2 (08:10→20:14)
[2021-05-28] MEDS: busPIRone 5 MG TAB PO SCH ×2 (08:10→20:14)
[2021-05-28] MEDS: ASPIRIN 81 MG ECTAB PO SCH ×2 (08:11→20:14)
[2021-05-28] MEDS: DULoxetine HCL 60 MG CAP PO SCH (08:11)
[2021-05-28] MEDS: FLUTICASONE/VILANTEROL 200/25MCG 14 PUFFS/INHALER INH SCH (08:12)
[2021-05-28] MEDS: methylPREDNISolone 40 MG in SYRINGE 0 ML IV SCH (08:13)
[2021-05-28] MEDS: guaiFENesin 600 MG TABCR PO SCH ×2 (08:13→20:14)
[2021-05-28] MEDS: ISOSORBIDE MONO EXTENDED REL 60 MG TABCR PO SCH (08:13)
[2021-05-28] MEDS: FUROSEMIDE 20 MG TAB PO SCH (08:13)
[2021-05-28] MEDS: LOSARTAN POTASSIUM 50 MG TAB PO SCH (08:13)
[2021-05-28] MEDS: CEROVITE ADV FORMULA TAB PO SCH (08:14)
[2021-05-28] MEDS: INSULIN GLARGINE SOLOSTAR 100 UNITS/ML 3 ML PEN SC SCH (08:14)
[2021-05-28] MEDS: FAMOTIDINE 20 MG in SYRINGE 3 ML IV SCH (08:24)
--- NOTE | 2021-05-28 09:18 | Pharmacy Report ---
Pharmacy Glycemic Short Note 2 - Date of Service May 28, 2021 - Glycemic Short BSG Results (Last 24 hours): 05/27/21 05/27/21 05/27/21 11:09 11:11 16:10 Glucose POC Glucose 326 H* 292 H 227 H 05/27/21 05/28/21 05/28/21 20:08 00:29 04:09 Glucose POC Glucose 191 H 144 H 196 H 05/28/21 05/28/21 05/28/21 04:13 06:11 07:15 Glucose 181 H POC Glucose 185 H 176 H OUTPATIENT ANTIDIABETIC REGIMEN: * Lantus 14 units SC HS * Novolog 8 units SC AC * Metformin 1 g PO qAM * HbA1c: 7.4% (05/27/21) ASSESSMENT: 05/28 * BSGs elevated yesterday, 148, 326, 227, 191 mg/dL, fasting BSG of 176 mg/dL this morning * Steroids decreased to Solumedrol 40 mg IV daily (from BID) today * Will change Lantus to once daily and give with Solu-medrol this morning * Continues on Zosyn for multifocal pneumonia 05/27 * BH is a 85 year old female admitted evening of 05/26/21 with multifocal pneumonia * Pertinent PMH includes, T2DM (reasonably controlled as outpatient based on HbA1c 7.4%), CKD, and COPD * BSGs elevated overnight, 263 and 222 mg/dL * Lantus dose and Novolog parameters entered to align with prior inpatient data * Received Solu-medrol 40 mg IV last evening, dosed BID ongoing * Fasting BSG of 148 mg/dL this morning * Lunch BSG elevated at 326, repeat of 292 mg/dL - discussed with RN, patient initially did not eat breakfast, but then ended up eating around 10:30 AM (this meal was not covered with Novolog). Will not overreact to this high. PLAN FOR INPATIENT GLYCEMIC CONTROL: * Hold outpatient oral diabetes medications * Basal insulin * Lantus 30 units SC daily with Solu-medrol * Bolus insulin * NovoLog per scale ACHS or Q6hrs while NPO * Goal Range: Low 110 mg/dL - High 140 mg/dL * Correction Factor: 25 mg/dL/unit * Nutritional / Prandial insulin per carb ratio of 1 unit per 5 grams CHO consumed with breakfast, 1 unit per 6 grams CHO with other meals
[2021-05-28] MEDS ORDERED: INSULIN ASPART PER UNIT SC ONE (09:29)
[2021-05-28] MEDS: CALCIUM 600MG + VIT D 400 IU TAB PO SCH (10:55)
[2021-05-28] MEDS: CETIRIZINE HCL 10 MG TABLET PO SCH (10:55)
[2021-05-28] MEDS: FERROUS SULFATE 325 MG TAB PO SCH ×2 (10:55→21:00)
[2021-05-28] MEDS ORDERED: FUROSEMIDE INJ 20 MG/2 ML VIAL IV ONE (18:24)
--- NOTE | 2021-05-28 18:28 | Hospitalist Progress Note ---
Date of Service May 28, 2021 Assessment & Plan (1) Multifocal pneumonia: (2) Acute on chronic respiratory failure with hypoxia: (3) Acute respiratory acidosis: (4) Leukocytosis: (5) Acute worsening of stage 3 chronic kidney disease: (6) Encephalopathy due to infection: Plan: This is an 85-year-old female with PMHx of Asthma/COPD, DMII, HLD, Nocturnal hypoxia, HTN, OJEDA cirrhosis, CAD, Urinary incontinence, Anxiety, Lumbar DDD, Osteoporosis who presents to ED secondary to shortness breath and cough x2 weeks. Multifocal pneumonia Acute on chronic respiratory failure hypoxia hypercapnia Acute respiratory acidosis CTA chest showed multifocal patchy airspace consolidation superimposed upon chronic infectious/inflammatory CXR showed Significant interval worsening of bilateral interstitial and alveolar airspace opacities most characteristic of a viral type pneumonitis and Covid pneumonia. Received IV Vanco on admission Currently on broad-spectrum antibiotics with IV Zosyn, doxycycline Received IV Vanco in ED, obtain MRSA screen, if positive will continue Vanco IV Solu-Medrol tapered to once daily Continue aggressive pulm toilet with flutter valve, chest PT and nebs Continue BiPAP as needed Blood culture no growth Sputum culture did not collected yet Will give Lasix 20 mgx1 today Continue oxygen supplement Continue monitor closely Encephalopathy 2/2 to infection and hypercarbia monitor, likely to improve with bipap and source control Clinically improved Leukocytosis wbc has been steadily increasing as outpt WBC 32K on admission , trending down to 19K today Likely in the setting of pneumonia as well as steroid that was given outpatient Continue IV antibiotic with Zosyn and doxy Blood culture no growth so far Acute on chronic CKD stage III Baseline creatinine 1.0, BUN/creatinine 51 and 1.35 on admission Received IV hydration Creatinine 0.88 today Continue monitor BMP Hypomagnesemia Magnesium stable T2DM, insulin-dependent Most recent hemoglobin A1c 7.4 Pharmacy on board for glycemic management while on steroids On Lantus and NovoLog sliding scale Continue monitor blood sugar CAD HTN HLD Continue metoprolol and Imdur Resumed losartan, amlodipine and Lasix Continue monitor BP Diabetic peripheral neuropathy Continue to hold gabapentin in setting of mental status GERD Continue PPI Also placed on IV Pepcid Anemia Unknown etiology, likely chronic Hemoglobin 7.8 today No reports of bleeding Hemoglobin previously stable around 10 Per epic iron studies done revealed iron 26, TIBC 2 4, transferrin saturation 13 Monitor closely Depression with anxiety continue buspar and duloxetine DVT prophylaxis: SCD/teds for now in setting of reduction of hemoglobin, if remains stable initiate subcu heparin Dispo: likely to return to [facility] upon discharge DNR/DNI PCP: Dr. Maya Admission and Anticipated Discharge Date Admission Date: May 26, 2021 Subjective Patient was seen and examined for follow-up of shortness of breath Lying in bed with no acute distress resting comfortable She said that her breathing improves Denies any chest pain, palpitation, dizziness, and fever. Review of Systems 2 Review of Systems: All systems reviewed & are unremarkable except as noted in Subjective Physical Exam Physical Exam: General- No acute distress Head- atraumatic Eyes- PERRL, EOMI, ENT- oropharynx clear Neck- supple, no JVD Lungs- +coarse breath sounds Heart- regular rhythm; no murmur Abdomen- normal bowel sounds, soft, nontender Extremities- no calf tenderness Neuro- alert, oriented x 3; PERRL, EOMI; no facial palsy; no dysarthria Skin- warm & dry Results & Data Results & Data ([facility]) Vital Signs (Past 12 Hours) Vital Signs Temp Pulse Pulse Pulse Resp BP BP 05/28/21 17:25 98 H 168/80 H 05/28/21 15:31 36.6 C 90 17 162/69 H 05/28/21 14:59 76 05/28/21 14:52 69 18 05/28/21 11:25 36.4 C L 84 18 145/73 H 05/28/21 10:41 70 20 05/28/21 07:20 68 19 05/28/21 07:18 80 05/28/21 07:11 36.4 C L 91 H 19 171/68 H Pulse Ox 05/28/21 17:25 05/28/21 15:31 96 05/28/21 14:59 05/28/21 14:52 96 05/28/21 11:25 90 05/28/21 10:41 94 05/28/21 07:20 94 05/28/21 07:18 05/28/21 07:11 98
[2021-05-28] MEDS: MONTELUKAST SODIUM 10 MG TABLET PO SCH (20:14)
[2021-05-28] MEDS: ATORVASTATIN 40 MG TAB PO SCH (20:48)
[2021-05-29] MEDS: PANTOprazole 40 MG TAB PO SCH (05:55)
[2021-05-29] MEDS: PIPERACILLIN/TAZOBACTAM 3.375 GM in DEXTROSE 5% 100 ML IV SCH ×3 (05:55→21:48)
[2021-05-29 06:29] LABS: Hematocrit (blood only) 28.2 % (37-47); Hemoglobin 8.6 g/dL (12.0-16.0); Mean Corpuscular Hemoglobin 27.7 pg (25-34); Mean Corpuscular Hgb Conc 30.5 g/dL (32-36); Mean Platelet Volume 10.2 fL (7.4-10.4); Platelet Count 226 K/uL (130-400); RDW Coefficient of Variation 15.8 % (11.5-14.5); RDW Standard Deviation 52.5 fL (36.4-46.3); White Blood Count 17.43 K/uL (4.8-10.8)
[2021-05-29 07:00] LABS: BUN Creatinine Ratio 34.5 (10-20); Calcium 8.8 mg/dl (8.5-10.1); Creatinine Clr Calc Pharmacy 47.6 ml/min; Est GFR (African American) 71.4 ml/min; Est GFR (Non-African American) 61.6 ml/min; Magnesium 1.4 mg/dl (1.7-2.4); Potassium 3.6 mmol/L (3.5-5.1)
[2021-05-29] MEDS: ALBUT/IPRATROP 3MG/0.5MG NEB 3 ML VIAL NEB SCH ×4 (07:17→19:35)
[2021-05-29] MEDS: guaiFENesin 600 MG TABCR PO SCH ×2 (08:10→20:19)
[2021-05-29] MEDS: busPIRone 5 MG TAB PO SCH ×2 (08:11→20:18)
[2021-05-29] MEDS: FUROSEMIDE 20 MG TAB PO SCH (08:11)
[2021-05-29] MEDS: DOXYCYCLINE HYCLATE 100 MG CAP PO SCH ×2 (08:11→20:17)
[2021-05-29] MEDS: ASPIRIN 81 MG ECTAB PO SCH ×2 (08:11→20:17)
[2021-05-29] MEDS: LOSARTAN POTASSIUM 50 MG TAB PO SCH (08:11)
[2021-05-29] MEDS: METOPROLOL TARTRATE 50 MG TAB PO SCH ×2 (08:12→17:48)
[2021-05-29] MEDS: CEROVITE ADV FORMULA TAB PO SCH (08:12)
[2021-05-29] MEDS: amLODIPine BESYLATE 5 MG TAB PO SCH (08:12)
[2021-05-29] MEDS: DULoxetine HCL 60 MG CAP PO SCH (08:12)
[2021-05-29] MEDS: ISOSORBIDE MONO EXTENDED REL 60 MG TABCR PO SCH (08:12)
[2021-05-29] MEDS: FAMOTIDINE 20 MG in SYRINGE 3 ML IV SCH (08:13)
[2021-05-29] MEDS: FLUTICASONE/VILANTEROL 200/25MCG 14 PUFFS/INHALER INH SCH (08:13)
[2021-05-29] MEDS: INSULIN GLARGINE SOLOSTAR 100 UNITS/ML 3 ML PEN SC SCH (08:13)
[2021-05-29] MEDS: methylPREDNISolone 40 MG in SYRINGE 0 ML IV SCH (08:13)
[2021-05-29] MEDS: INSULIN ASPART PER UNIT SC SCH ×4 (08:14→21:45)
[2021-05-29] MEDS: MAGNESIUM SULFATE / D5W 1 GM/100 ML BAG IV SCH ×2 (09:27→11:15)
[2021-05-29] MEDS: FERROUS SULFATE 325 MG TAB PO SCH ×2 (10:55→21:48)
[2021-05-29] MEDS: CETIRIZINE HCL 10 MG TABLET PO SCH (11:16)
[2021-05-29] MEDS: CALCIUM 600MG + VIT D 400 IU TAB PO SCH (11:16)
[2021-05-29] MEDS: MONTELUKAST SODIUM 10 MG TABLET PO SCH (20:17)
[2021-05-29] MEDS: ATORVASTATIN 40 MG TAB PO SCH (20:17)
--- NOTE | 2021-05-29 22:32 | Hospitalist Progress Note ---
Date of Service May 29, 2021 Assessment & Plan (1) Multifocal pneumonia: (2) Acute on chronic respiratory failure with hypoxia: (3) Acute respiratory acidosis: (4) Leukocytosis: (5) Acute worsening of stage 3 chronic kidney disease: (6) Encephalopathy due to infection: Plan: This is an 85-year-old female with PMHx of Asthma/COPD, DMII, HLD, Nocturnal hypoxia, HTN, OJEDA cirrhosis, CAD, Urinary incontinence, Anxiety, Lumbar DDD, Osteoporosis who presents to ED secondary to shortness breath and cough x2 weeks. Multifocal pneumonia Acute on chronic respiratory failure hypoxia hypercapnia Acute respiratory acidosis CTA chest showed multifocal patchy airspace consolidation superimposed upon chronic infectious/inflammatory CXR showed Significant interval worsening of bilateral interstitial and alveolar airspace opacities most characteristic of a viral type pneumonitis and Covid pneumonia. Received IV Vanco on admission Currently on broad-spectrum antibiotics with IV Zosyn, doxycycline Received IV Vanco in ED, obtain MRSA screen, if positive will continue Vanco IV Solu-Medrol tapered to once daily Continue aggressive pulm toilet with flutter valve, chest PT and nebs Continue BiPAP as needed Blood culture no growth Sputum culture did not collected yet Continue oxygen supplement Continue monitor closely Encephalopathy 2/2 to infection and hypercarbia monitor, likely to improve with bipap and source control Clinically improved Leukocytosis wbc has been steadily increasing as outpt WBC 32K on admission , trending down to 17K today Likely in the setting of pneumonia as well as steroid that was given outpatient Continue IV antibiotic with Zosyn and doxy Blood culture no growth so far Acute on chronic CKD stage III Baseline creatinine 1.0, BUN/creatinine 51 and 1.35 on admission Received IV hydration Creatinine 0.88 today Continue monitor BMP Hypomagnesemia Magnesium replaced Continue monitor Mg level T2DM, insulin-dependent Most recent hemoglobin A1c 7.4 Pharmacy on board for glycemic management while on steroids On Lantus and NovoLog sliding scale Continue monitor blood sugar CAD HTN HLD Continue metoprolol and Imdur Resumed losartan, amlodipine and Lasix Continue monitor BP Diabetic peripheral neuropathy Continue to hold gabapentin in setting of mental status GERD Continue PPI Also placed on IV Pepcid Anemia Unknown etiology, likely chronic Hemoglobin 8.6 today No reports of bleeding Hemoglobin previously stable around 10 Per epic iron studies done revealed iron 26, TIBC 2 4, transferrin saturation 13 Monitor closely Depression with anxiety continue buspar and duloxetine DVT prophylaxis: SCD/teds for now in setting of reduction of hemoglobin, if remains stable initiate subcu heparin Dispo: likely to return to [facility] upon discharge DNR/DNI PCP: Dr. Maya Admission and Anticipated Discharge Date Admission Date: May 26, 2021 Subjective Patient was seen and examined for follow-up of shortness of breath Lying in bed with no acute distress resting comfortable Continue to have SOB associated with cough Denies any chest pain, palpitation, dizziness, and fever. Review of Systems Review of Systems: All systems reviewed & are unremarkable except as noted in HPI & below Physical Exam Physical Exam: General- No acute distress Head- atraumatic Eyes- PERRL, EOMI, ENT- oropharynx clear Neck- supple, no JVD Lungs- +coarse breath sounds Heart- regular rhythm; no murmur Abdomen- normal bowel sounds, soft, nontender Extremities- no calf tenderness Neuro- alert, oriented x 3; PERRL, EOMI; no facial palsy; no dysarthria Skin- warm & dry Results & Data Results & Data ([facility]) Vital Signs (Past 12 Hours) Vital Signs Temp Pulse Pulse Resp BP Pulse Ox 05/29/21 19:37 83 18 97 05/29/21 19:11 36.7 C 86 16 157/67 H 97 05/29/21 17:48 90 137/67 05/29/21 16:00 36.7 C 83 18 95 05/29/21 14:22 83 18 95 05/29/21 14:19 82 05/29/21 12:00 36.6 C 74 18 126/63 94 05/29/21 10:58 83 20 95
[2021-05-30] MEDS: PANTOprazole 40 MG TAB PO SCH (05:54)
[2021-05-30] MEDS: PIPERACILLIN/TAZOBACTAM 3.375 GM in DEXTROSE 5% 100 ML IV SCH ×3 (05:54→21:37)
[2021-05-30] MEDS: ALBUT/IPRATROP 3MG/0.5MG NEB 3 ML VIAL NEB SCH ×4 (07:15→19:46)
[2021-05-30 07:27] LABS: Hematocrit (blood only) 29.7 % (37-47); Hemoglobin 8.9 g/dL (12.0-16.0); Mean Corpuscular Hemoglobin 27.1 pg (25-34); Mean Corpuscular Volume 90.3 fL (80-100); Mean Platelet Volume 10.7 fL (7.4-10.4); Platelet Count 218 K/uL (130-400); RDW Coefficient of Variation 15.6 % (11.5-14.5); Red Blood Count 3.29 M/uL (4.2-5.4)
[2021-05-30 07:52] LABS: BUN Creatinine Ratio 31.6 (10-20); Calcium 8.9 mg/dl (8.5-10.1); Creatinine Clr Calc Pharmacy 59.2 ml/min; Est GFR (African American) 84.1 ml/min; Est GFR (Non-African American) 72.5 ml/min; Magnesium 1.7 mg/dl (1.7-2.4); Potassium 3.5 mmol/L (3.5-5.1)
[2021-05-30] MEDS: FLUTICASONE/VILANTEROL 200/25MCG 14 PUFFS/INHALER INH SCH (08:24)
[2021-05-30] MEDS: guaiFENesin 600 MG TABCR PO SCH ×2 (08:25→20:37)
[2021-05-30] MEDS: CEROVITE ADV FORMULA TAB PO SCH (08:25)
[2021-05-30] MEDS: LOSARTAN POTASSIUM 50 MG TAB PO SCH (08:25)
[2021-05-30] MEDS: INSULIN GLARGINE SOLOSTAR 100 UNITS/ML 3 ML PEN SC SCH (08:25)
[2021-05-30] MEDS: ISOSORBIDE MONO EXTENDED REL 60 MG TABCR PO SCH (08:25)
[2021-05-30] MEDS: ASPIRIN 81 MG ECTAB PO SCH ×2 (08:25→20:37)
[2021-05-30] MEDS: DOXYCYCLINE HYCLATE 100 MG CAP PO SCH ×2 (08:25→20:37)
[2021-05-30] MEDS: DULoxetine HCL 60 MG CAP PO SCH (08:25)
[2021-05-30] MEDS: amLODIPine BESYLATE 5 MG TAB PO SCH (08:25)
[2021-05-30] MEDS: busPIRone 5 MG TAB PO SCH ×2 (08:25→20:37)
[2021-05-30] MEDS: FUROSEMIDE 20 MG TAB PO SCH (08:25)
[2021-05-30] MEDS: METOPROLOL TARTRATE 50 MG TAB PO SCH ×2 (08:25→17:20)
[2021-05-30] MEDS: ACETAMINOPHEN 325 MG TAB PO PRN ×2 (08:26→20:37)
[2021-05-30] MEDS: methylPREDNISolone 40 MG in SYRINGE 0 ML IV SCH (08:34)
[2021-05-30] MEDS: INSULIN ASPART PER UNIT SC SCH ×4 (08:38→20:57)
[2021-05-30] MEDS: FAMOTIDINE 20 MG in SYRINGE 3 ML IV SCH (08:41)
[2021-05-30] MEDS: FERROUS SULFATE 325 MG TAB PO SCH ×2 (09:08→21:36)
[2021-05-30] MEDS: SODIUM CHLOR 7% 4 ML NEB NEB SCH ×2 (10:49→19:47)
[2021-05-30] MEDS: CETIRIZINE HCL 10 MG TABLET PO SCH (12:03)
[2021-05-30] MEDS: CALCIUM 600MG + VIT D 400 IU TAB PO SCH (12:03)
--- NOTE | 2021-05-30 12:41 | Pharmacy Report ---
Pharmacy Glycemic Short Note 2 - Date of Service May 30, 2021 - Glycemic Short BSG Results (Last 24 hours): 05/29/21 05/29/21 05/30/21 16:09 20:39 06:37 Glucose 94 POC Glucose 206 H 221 H 05/30/21 05/30/21 07:23 11:31 Glucose POC Glucose 113 H 89 OUTPATIENT ANTIDIABETIC REGIMEN: * Lantus 14 units SC HS * Novolog 8 units SC AC * Metformin 1 g PO qAM * HbA1c: 7.4% (05/27/21) ASSESSMENT: 05/30 * Patient remains on Solu-Medrol 40mg IV daily, blood sugars climbing somewhat throughout the day yesterday, tighten CR at breakfast * Fasting BSG at goal, continue Lantus dose * Continues Zosyn + Doxy for pnx 05/28 * BSGs elevated yesterday, 148, 326, 227, 191 mg/dL, fasting BSG of 176 mg/dL this morning * Steroids decreased to Solumedrol 40 mg IV daily (from BID) today * Will change Lantus to once daily and give with Solu-medrol this morning * Continues on Zosyn for multifocal pneumonia 05/27 * BH is a 85 year old female admitted evening of 05/26/21 with multifocal pneumonia * Pertinent PMH includes, T2DM (reasonably controlled as outpatient based on HbA1c 7.4%), CKD, and COPD * BSGs elevated overnight, 263 and 222 mg/dL * Lantus dose and Novolog parameters entered to align with prior inpatient data * Received Solu-medrol 40 mg IV last evening, dosed BID ongoing * Fasting BSG of 148 mg/dL this morning * Lunch BSG elevated at 326, repeat of 292 mg/dL - discussed with RN, patient initially did not eat breakfast, but then ended up eating around 10:30 AM (this meal was not covered with Novolog). Will not overreact to this high. PLAN FOR INPATIENT GLYCEMIC CONTROL: * Hold outpatient oral diabetes medications * Basal insulin * Lantus 30 units SC daily with Solu-medrol * Bolus insulin * NovoLog per scale ACHS or Q6hrs while NPO * Goal Range: Low 110 mg/dL - High 140 mg/dL * Correction Factor: 25 mg/dL/unit * Nutritional / Prandial insulin per carb ratio of 1 unit per 4.5 grams CHO consumed with breakfast, 1 unit per 6 grams CHO with other meals
--- NOTE | 2021-05-30 17:49 | Hospitalist Progress Note ---
Date of Service May 30, 2021 Assessment & Plan (1) Multifocal pneumonia: (2) Acute on chronic respiratory failure with hypoxia: (3) Acute respiratory acidosis: (4) Leukocytosis: (5) Acute worsening of stage 3 chronic kidney disease: (6) Encephalopathy due to infection: Plan: This is an 85-year-old female with PMHx of Asthma/COPD, DMII, HLD, Nocturnal hypoxia, HTN, OJEDA cirrhosis, CAD, Urinary incontinence, Anxiety, Lumbar DDD, Osteoporosis who presents to ED secondary to shortness breath and cough x2 weeks. Multifocal pneumonia Acute on chronic respiratory failure hypoxia hypercapnia Acute respiratory acidosis CTA chest showed multifocal patchy airspace consolidation superimposed upon chronic infectious/inflammatory CXR showed Significant interval worsening of bilateral interstitial and alveolar airspace opacities most characteristic of a viral type pneumonitis and Covid pneumonia. Received IV Vanco on admission Currently on broad-spectrum antibiotics with IV Zosyn, doxycycline Received IV Vanco in ED, obtain MRSA screen, if positive will continue Vanco IV Solu-Medrol tapered to once daily Continue aggressive pulm toilet with flutter valve, chest PT and nebs Continue BiPAP as needed Blood culture no growth Sputum culture grew gram negative bacilli and corynebacterium Continue IV abx with Zosyn/Doxycycline for now Continue oxygen supplement Hypertonic saline neb adding BID Continue monitor closely Encephalopathy 2/2 to infection and hypercarbia monitor, likely to improve with bipap and source control Clinically improved Leukocytosis WBC has been steadily increasing as outpt WBC 32K on admission , trending down to 17K-->14K today Likely in the setting of pneumonia as well as steroid that was given outpatient Continue IV antibiotic with Zosyn and doxy Blood culture no growth so far Acute on chronic CKD stage III Baseline creatinine 1.0, BUN/creatinine 51 and 1.35 on admission Received IV hydration Creatinine 0.88 today Continue monitor BMP Hypomagnesemia Magnesium replaced Continue monitor Mg level T2DM, insulin-dependent Most recent hemoglobin A1c 7.4 Pharmacy on board for glycemic management while on steroids On Lantus and NovoLog sliding scale Continue monitor blood sugar CAD HTN HLD Continue metoprolol and Imdur Resumed losartan, amlodipine and Lasix Continue monitor BP Diabetic peripheral neuropathy Continue to hold gabapentin in setting of mental status GERD Continue PPI Also placed on IV Pepcid Anemia Unknown etiology, likely chronic Hemoglobin 8.9 today No reports of bleeding Hemoglobin previously stable around 10 Per epic iron studies done revealed iron 26, TIBC 2 4, transferrin saturation 13 Monitor closely Depression with anxiety continue buspar and duloxetine DVT prophylaxis: SCD/teds for now in setting of reduction of hemoglobin, if remains stable initiate subcu heparin Dispo: likely to return to [facility] nursing upon discharge DNR/DNI PCP: Dr. Maya Admission and Anticipated Discharge Date Admission Date: May 26, 2021 Subjective Patient was seen and examined for follow-up of shortness of breath Lying in bed with no acute distress resting and watching TV Denies any chest pain, palpitation, dizziness, and fever. Review of Systems Review of Systems: All systems reviewed & are unremarkable except as noted in Subjective Physical Exam Physical Exam: General- No acute distress Head- atraumatic Eyes- PERRL, EOMI, ENT- oropharynx clear Neck- supple, no JVD Lungs- +coarse breath sounds Heart- regular rhythm; no murmur Abdomen- normal bowel sounds, soft, nontender Extremities- no calf tenderness Neuro- alert, oriented x 3; PERRL, EOMI; no facial palsy; no dysarthria Skin- warm & dry Results & Data Results & Data ([facility]) Vital Signs (Past 12 Hours) Vital Signs Temp Pulse Resp BP Pulse Ox 05/30/21 16:00 36.7 C 85 18 145/72 H 90 05/30/21 14:41 86 20 93 05/30/21 11:44 36.4 C L 73 19 134/70 93 05/30/21 10:51 78 18 96 05/30/21 07:32 36.8 C 88 20 175/105 H 95 05/30/21 07:17 76 18 95
[2021-05-30] MEDS: ATORVASTATIN 40 MG TAB PO SCH (20:37)
[2021-05-30] MEDS: MONTELUKAST SODIUM 10 MG TABLET PO SCH (20:37)
[2021-05-31] MEDS: amLODIPine BESYLATE 5 MG TAB PO SCH (04:42)
[2021-05-31] MEDS: PIPERACILLIN/TAZOBACTAM 3.375 GM in DEXTROSE 5% 100 ML IV SCH ×3 (06:00→21:53)
[2021-05-31] MEDS: PANTOprazole 40 MG TAB PO SCH (06:00)
[2021-05-31] MEDS: SODIUM CHLOR 7% 4 ML NEB NEB SCH ×2 (07:14→19:35)
[2021-05-31] MEDS: ALBUT/IPRATROP 3MG/0.5MG NEB 3 ML VIAL NEB SCH ×4 (07:17→19:35)
[2021-05-31] MEDS: busPIRone 5 MG TAB PO SCH ×2 (08:11→20:22)
[2021-05-31] MEDS: METOPROLOL TARTRATE 50 MG TAB PO SCH ×2 (08:11→17:17)
[2021-05-31] MEDS: ASPIRIN 81 MG ECTAB PO SCH ×2 (08:11→20:20)
[2021-05-31] MEDS: FLUTICASONE/VILANTEROL 200/25MCG 14 PUFFS/INHALER INH SCH (08:12)
[2021-05-31] MEDS: DOXYCYCLINE HYCLATE 100 MG CAP PO SCH ×2 (08:12→20:21)
[2021-05-31] MEDS: FUROSEMIDE 20 MG TAB PO SCH (08:12)
[2021-05-31] MEDS: DULoxetine HCL 60 MG CAP PO SCH (08:12)
[2021-05-31] MEDS: guaiFENesin 600 MG TABCR PO SCH ×2 (08:13→20:23)
[2021-05-31] MEDS: INSULIN GLARGINE SOLOSTAR 100 UNITS/ML 3 ML PEN SC SCH (08:13)
[2021-05-31] MEDS: CEROVITE ADV FORMULA TAB PO SCH (08:14)
[2021-05-31] MEDS: FERROUS SULFATE 325 MG TAB PO SCH ×2 (08:14→21:53)
[2021-05-31] MEDS: LOSARTAN POTASSIUM 50 MG TAB PO SCH (08:14)
[2021-05-31] MEDS: ISOSORBIDE MONO EXTENDED REL 60 MG TABCR PO SCH (08:14)
[2021-05-31] MEDS: INSULIN ASPART PER UNIT SC SCH ×4 (08:17→21:45)
[2021-05-31] MEDS: methylPREDNISolone 40 MG in SYRINGE 0 ML IV SCH (08:18)
[2021-05-31] MEDS: FAMOTIDINE 20 MG in SYRINGE 3 ML IV SCH (08:18)
[2021-05-31] MEDS: CALCIUM 600MG + VIT D 400 IU TAB PO SCH (12:37)
[2021-05-31] MEDS: CETIRIZINE HCL 10 MG TABLET PO SCH (12:38)
[2021-05-31] MEDS: MONTELUKAST SODIUM 10 MG TABLET PO SCH (20:20)
[2021-05-31] MEDS: ATORVASTATIN 40 MG TAB PO SCH (20:21)
--- NOTE | 2021-05-31 21:09 | Hospitalist Progress Note ---
Date of Service May 31, 2021 Assessment & Plan (1) Multifocal pneumonia: (2) Acute on chronic respiratory failure with hypoxia: (3) Acute respiratory acidosis: (4) Leukocytosis: (5) Acute worsening of stage 3 chronic kidney disease: (6) Encephalopathy due to infection: Plan: This is an 85-year-old female with PMHx of Asthma/COPD, DMII, HLD, Nocturnal hypoxia, HTN, OJEDA cirrhosis, CAD, Urinary incontinence, Anxiety, Lumbar DDD, Osteoporosis who presents to ED secondary to shortness breath and cough x2 weeks. Multifocal pneumonia Acute on chronic respiratory failure hypoxia hypercapnia Acute respiratory acidosis CTA chest showed multifocal patchy airspace consolidation superimposed upon chronic infectious/inflammatory CXR showed Significant interval worsening of bilateral interstitial and alveolar airspace opacities most characteristic of a viral type pneumonitis and Covid pneumonia. Received IV Vanco on admission Currently on broad-spectrum antibiotics with IV Zosyn, doxycycline Received IV Vanco in ED, obtain MRSA screen, if positive will continue Vanco IV Solu-Medrol tapered to once daily Continue aggressive pulm toilet with flutter valve, chest PT and nebs Continue BiPAP as needed Blood culture no growth Sputum culture grew gram negative bacilli and corynebacterium Continue IV abx with Zosyn/Doxycycline for now Continue oxygen supplement Continue Hypertonic saline neb Will give lasix 20mg x1 Continue monitor closely Encephalopathy 2/2 to infection and hypercarbia monitor, likely to improve with bipap and source control Clinically improved Leukocytosis WBC has been steadily increasing as outpt WBC 32K on admission , trending down to 17K-->14K today Likely in the setting of pneumonia as well as steroid that was given outpatient Continue IV antibiotic with Zosyn and doxy Blood culture no growth so far Acute on chronic CKD stage III Baseline creatinine 1.0, BUN/creatinine 51 and 1.35 on admission Received IV hydration Creatinine 0.88 Continue monitor BMP Hypomagnesemia Magnesium replaced Continue monitor Mg level T2DM, insulin-dependent Most recent hemoglobin A1c 7.4 Pharmacy on board for glycemic management while on steroids On Lantus and NovoLog sliding scale Continue monitor blood sugar CAD HTN HLD Continue metoprolol and Imdur Resumed losartan, amlodipine and Lasix Continue monitor BP Diabetic peripheral neuropathy Continue to hold gabapentin in setting of mental status GERD Continue PPI Also placed on IV Pepcid Anemia Unknown etiology, likely chronic Hemoglobin 8.9 today No reports of bleeding Hemoglobin previously stable around 10 Per epic iron studies done revealed iron 26, TIBC 2 4, transferrin saturation 13 Monitor closely Depression with anxiety continue buspar and duloxetine DVT prophylaxis: SCD/teds for now in setting of reduction of hemoglobin, if remains stable initiate subcu heparin Dispo: likely to return to [facility] nursing upon discharge DNR/DNI PCP: Dr. Maya Admission and Anticipated Discharge Date Admission Date: May 26, 2021 Subjective Patient was seen and examined for follow-up of shortness of breath Lying in bed with no acute distress Denies any chest pain, palpitation, dizziness, and fever. Review of Systems Review of Systems: All systems reviewed & are unremarkable except as noted in Subjective Physical Exam Physical Exam: General- No acute distress Head- atraumatic Eyes- PERRL, EOMI, ENT- oropharynx clear Neck- supple, no JVD Lungs- Diminished BS Heart- regular rhythm; no murmur Abdomen- normal bowel sounds, soft, nontender Extremities- no calf tenderness Neuro- alert, oriented x 3; PERRL, EOMI; no facial palsy; no dysarthria Skin- warm & dry Results & Data Results & Data ([facility]) Vital Signs (Past 12 Hours) Vital Signs Temp Pulse Resp BP Pulse Ox 05/31/21 20:27 36.8 C 71 18 156/72 H 95 05/31/21 19:37 74 16 97 05/31/21 16:00 36.6 C 74 18 122/71 97 05/31/21 15:13 79 18 93 05/31/21 11:30 36.9 C 88 16 140/63 93 05/31/21 10:37 67 18 95
[2021-05-31] MEDS ORDERED: FUROSEMIDE INJ 20 MG/2 ML VIAL IV ONE (21:20)
[2021-06-01] MEDS: PIPERACILLIN/TAZOBACTAM 3.375 GM in DEXTROSE 5% 100 ML IV SCH ×3 (05:53→21:44)
[2021-06-01] MEDS: PANTOprazole 40 MG TAB PO SCH (06:05)
[2021-06-01 06:23] LABS: Hematocrit (blood only) 27.3 % (37-47); Hemoglobin 8.4 g/dL (12.0-16.0); Mean Corpuscular Hemoglobin 27.6 pg (25-34); Mean Corpuscular Hgb Conc 30.8 g/dL (32-36); Mean Corpuscular Volume 89.8 fL (80-100); Mean Platelet Volume 10.2 fL (7.4-10.4); Platelet Count 191 K/uL (130-400); RDW Coefficient of Variation 15.9 % (11.5-14.5); RDW Standard Deviation 51.6 fL (36.4-46.3); Red Blood Count 3.04 M/uL (4.2-5.4); White Blood Count 14.46 K/uL (4.8-10.8)
[2021-06-01 06:51] LABS: BUN Creatinine Ratio 29.3 (10-20); Calcium 8.3 mg/dl (8.5-10.1); Creatinine Clr Calc Pharmacy 55.3 ml/min; Est GFR (African American) 85.4 ml/min; Est GFR (Non-African American) 73.7 ml/min; Potassium 3.2 mmol/L (3.5-5.1)
[2021-06-01] MEDS: ALBUT/IPRATROP 3MG/0.5MG NEB 3 ML VIAL NEB SCH ×4 (07:02→19:20)
[2021-06-01] MEDS: ISOSORBIDE MONO EXTENDED REL 60 MG TABCR PO SCH (08:33)
[2021-06-01] MEDS: busPIRone 5 MG TAB PO SCH ×2 (08:33→20:35)
[2021-06-01] MEDS: amLODIPine BESYLATE 5 MG TAB PO SCH (08:33)
[2021-06-01] MEDS: LOSARTAN POTASSIUM 50 MG TAB PO SCH (08:33)
[2021-06-01] MEDS: DOXYCYCLINE HYCLATE 100 MG CAP PO SCH ×2 (08:33→20:34)
[2021-06-01] MEDS: FUROSEMIDE 20 MG TAB PO SCH (08:34)
[2021-06-01] MEDS: CEROVITE ADV FORMULA TAB PO SCH (08:34)
[2021-06-01] MEDS: DULoxetine HCL 60 MG CAP PO SCH (08:34)
[2021-06-01] MEDS: ASPIRIN 81 MG ECTAB PO SCH ×2 (08:34→20:36)
[2021-06-01] MEDS: METOPROLOL TARTRATE 50 MG TAB PO SCH ×2 (08:35→17:06)
[2021-06-01] MEDS: FLUTICASONE/VILANTEROL 200/25MCG 14 PUFFS/INHALER INH SCH (08:36)
[2021-06-01] MEDS: INSULIN GLARGINE SOLOSTAR 100 UNITS/ML 3 ML PEN SC SCH (08:43)
--- NOTE | 2021-06-01 08:43 | Pharmacy Report ---
Pharmacy Glycemic Short Note 2 - Date of Service June 01, 2021 - Glycemic Short BSG Results (Last 24 hours): 05/31/21 05/31/21 05/31/21 11:37 16:05 20:40 Glucose POC Glucose 154 H 168 H 164 H 06/01/21 06/01/21 05:49 07:27 Glucose 76 POC Glucose 91 OUTPATIENT ANTIDIABETIC REGIMEN: * Lantus 14 units SC HS * Novolog 8 units SC AC * Metformin 1 g PO qAM * HbA1c: 7.4% (05/27/21) ASSESSMENT: 06/01 * BSGs reasonably well-controlled yesterday, ranging 109-168 mg/dL, fasting BSG of 91 mg/dL this morning * Received 52 units of insulin (30 units of Lantus and 22 units of prandial/correctional Novolog) * Last dose of Solu-medrol 40 mg IV daily yesterday, now on prednisone 40 mg PO daily starting today * Fasting BSGs have trended down over past several days, will decrease Lantus today in light of that and due to steroid switch (SM to prednisone) * Maintain tight Novolog parameters for now * Lunch BSG of 225 mg/dL, won't overreact as no Novolog was given this morning (unsure how much patient ate) 05/30 * Patient remains on Solu-Medrol 40mg IV daily, blood sugars climbing somewhat throughout the day yesterday, tighten CR at breakfast * Fasting BSG at goal, continue Lantus dose * Continues Zosyn + Doxy for pnx 05/28 * BSGs elevated yesterday, 148, 326, 227, 191 mg/dL, fasting BSG of 176 mg/dL this morning * Steroids decreased to Solumedrol 40 mg IV daily (from BID) today * Will change Lantus to once daily and give with Solu-medrol this morning * Continues on Zosyn for multifocal pneumonia 05/27 * BH is a 85 year old female admitted evening of 05/26/21 with multifocal pneumonia * Pertinent PMH includes, T2DM (reasonably controlled as outpatient based on HbA1c 7.4%), CKD, and COPD * BSGs elevated overnight, 263 and 222 mg/dL * Lantus dose and Novolog parameters entered to align with prior inpatient data * Received Solu-medrol 40 mg IV last evening, dosed BID ongoing * Fasting BSG of 148 mg/dL this morning * Lunch BSG elevated at 326, repeat of 292 mg/dL - discussed with RN, patient initially did not eat breakfast, but then ended up eating around 10:30 AM (this meal was not covered with Novolog). Will not overreact to this high. PLAN FOR INPATIENT GLYCEMIC CONTROL: * Hold outpatient oral diabetes medications * Basal insulin - decrease 20% * Lantus 24 units SC daily with prednisone * Bolus insulin - continue * NovoLog per scale ACHS or Q6hrs while NPO * Goal Range: Low 110 mg/dL - High 140 mg/dL * Correction Factor: 25 mg/dL/unit * Nutritional / Prandial insulin per carb ratio of 1 unit per 4.5 grams CHO consumed with breakfast, 1 unit per 5 grams CHO with other meals
[2021-06-01] MEDS ORDERED: INSULIN GLARGINE SOLOSTAR 100 UNITS/ML 3 ML PEN SC SCH (09:00)
[2021-06-01] MEDS ORDERED: POTASSIUM CHLORIDE CRTAB 20 MEQ TABCR PO STA (09:20)
[2021-06-01] MEDS: FAMOTIDINE 20 MG in SYRINGE 3 ML IV SCH (09:38)
[2021-06-01] MEDS: predniSONE 20 MG TAB PO SCH (09:38)
[2021-06-01] MEDS: CALCIUM 600MG + VIT D 400 IU TAB PO SCH (10:36)
[2021-06-01] MEDS: FERROUS SULFATE 325 MG TAB PO SCH ×2 (10:36→21:44)
[2021-06-01] MEDS: CETIRIZINE HCL 10 MG TABLET PO SCH (10:36)
[2021-06-01] MEDS: INSULIN ASPART PER UNIT SC SCH ×4 (11:31→20:47)
[2021-06-01] MEDS: guaiFENesin 600 MG TABCR PO SCH ×2 (13:08→20:35)
[2021-06-01] MEDS: SODIUM CHLOR 7% 4 ML NEB NEB SCH (19:27)
[2021-06-01] MEDS: MONTELUKAST SODIUM 10 MG TABLET PO SCH (20:34)
[2021-06-01] MEDS: ATORVASTATIN 40 MG TAB PO SCH (20:35)
--- NOTE | 2021-06-01 23:36 | Hospitalist Progress Note ---
Date of Service June 01, 2021 Assessment & Plan (1) Multifocal pneumonia: (2) Acute on chronic respiratory failure with hypoxia: (3) Acute respiratory acidosis: (4) Leukocytosis: (5) Acute worsening of stage 3 chronic kidney disease: (6) Encephalopathy due to infection: Plan: This is an 85-year-old female with PMHx of Asthma/COPD, DMII, HLD, Nocturnal hypoxia, HTN, OJEDA cirrhosis, CAD, Urinary incontinence, Anxiety, Lumbar DDD, Osteoporosis who presents to ED secondary to shortness breath and cough x2 weeks. Multifocal pneumonia Acute on chronic respiratory failure hypoxia hypercapnia Acute respiratory acidosis CTA chest showed multifocal patchy airspace consolidation superimposed upon chronic infectious/inflammatory CXR showed Significant interval worsening of bilateral interstitial and alveolar airspace opacities most characteristic of a viral type pneumonitis and Covid pneumonia. Received IV Vanco on admission Currently on broad-spectrum antibiotics with IV Zosyn, doxycycline Received IV Vanco in ED, obtain MRSA screen, if positive will continue Vanco IV Solu-Medrol tapered to once daily Continue aggressive pulm toilet with flutter valve, chest PT and nebs Continue BiPAP as needed Blood culture no growth Sputum culture grew gram negative bacilli and corynebacterium Continue IV abx with Zosyn/Doxycycline for now Continue oxygen supplement Continue Hypertonic saline neb Continue monitor closely Encephalopathy 2/2 to infection and hypercarbia monitor, likely to improve with bipap and source control Clinically improved Leukocytosis WBC has been steadily increasing as outpt WBC 32K on admission , trending down to 17K-->14K today Likely in the setting of pneumonia as well as steroid that was given outpatient Continue IV antibiotic with Zosyn and doxy Blood culture no growth so far Acute on chronic CKD stage III Baseline creatinine 1.0, BUN/creatinine 51 and 1.35 on admission Received IV hydration Creatinine 0.88 Continue monitor BMP Electrolytes imbalance Potassium 3.2 K replaced Continue monitor electrolytes T2DM, insulin-dependent Most recent hemoglobin A1c 7.4 Pharmacy on board for glycemic management while on steroids On Lantus and NovoLog sliding scale Continue monitor blood sugar CAD HTN HLD Continue metoprolol and Imdur Resumed losartan, amlodipine and Lasix Continue monitor BP Diabetic peripheral neuropathy Continue to hold gabapentin in setting of mental status GERD Continue PPI Also placed on IV Pepcid Anemia Unknown etiology, likely chronic Hemoglobin 8.4 today No reports of bleeding Hemoglobin previously stable around 10 Per epic iron studies done revealed iron 26, TIBC 2 4, transferrin saturation 13 Monitor closely Depression with anxiety continue buspar and duloxetine DVT prophylaxis: SCD/teds for now in setting of low hemoglobin Dispo: likely to return to [facility] nursing upon discharge DNR/DNI PCP: Dr. Maya Admission and Anticipated Discharge Date Admission Date: May 26, 2021 Subjective Patient was seen and examined for follow-up of shortness of breath Lying in bed with no acute distress She said that her breathing improves Denies any chest pain, palpitation, dizziness, and fever. Review of Systems Review of Systems: All systems reviewed & are unremarkable except as noted in Subjective Physical Exam Physical Exam: General- No acute distress Head- atraumatic Eyes- PERRL, EOMI, ENT- oropharynx clear Neck- supple, no JVD Lungs- Diminished BS Heart- regular rhythm; no murmur Abdomen- normal bowel sounds, soft, nontender Extremities- no calf tenderness Neuro- alert, oriented x 3; PERRL, EOMI; no facial palsy; no dysarthria Skin- warm & dry Results & Data Results & Data ([facility]) Vital Signs (Past 12 Hours) Vital Signs Temp Pulse Pulse Pulse Resp BP Pulse Ox 06/01/21 22:57 71 06/01/21 20:14 82 20 94 06/01/21 19:37 36.6 C 82 20 120/64 94 06/01/21 16:35 36.7 C 73 19 138/68 94 06/01/21 15:13 77 22 97
[2021-06-02] MEDS: PIPERACILLIN/TAZOBACTAM 3.375 GM in DEXTROSE 5% 100 ML IV SCH ×3 (05:20→22:40)
[2021-06-02] MEDS: PANTOprazole 40 MG TAB PO SCH (06:09)
[2021-06-02] MEDS: ALBUT/IPRATROP 3MG/0.5MG NEB 3 ML VIAL NEB SCH (07:07)
[2021-06-02] MEDS: SODIUM CHLOR 7% 4 ML NEB NEB SCH (07:07)
[2021-06-02 07:40] LABS: Hematocrit (blood only) 25.7 % (37-47); Hemoglobin 7.8 g/dL (12.0-16.0); Mean Corpuscular Hemoglobin 27.1 pg (25-34); Mean Corpuscular Hgb Conc 30.4 g/dL (32-36); Mean Corpuscular Volume 89.2 fL (80-100); Mean Platelet Volume 10.2 fL (7.4-10.4); Platelet Count 219 K/uL (130-400); RDW Coefficient of Variation 16.1 % (11.5-14.5); RDW Standard Deviation 51.2 fL (36.4-46.3); Red Blood Count 2.88 M/uL (4.2-5.4); White Blood Count 14.82 K/uL (4.8-10.8)
[2021-06-02 08:04] LABS: BUN Creatinine Ratio 25.6 (10-20); Calcium 8.4 mg/dl (8.5-10.1); Creatinine Clr Calc Pharmacy 34.3 ml/min; Est GFR (African American) 47.9 ml/min; Est GFR (Non-African American) 41.3 ml/min; Potassium 3.9 mmol/L (3.5-5.1)
[2021-06-02] MEDS: ISOSORBIDE MONO EXTENDED REL 60 MG TABCR PO SCH (08:35)
[2021-06-02] MEDS: DULoxetine HCL 60 MG CAP PO SCH (08:36)
[2021-06-02] MEDS: predniSONE 20 MG TAB PO SCH (08:36)
[2021-06-02] MEDS: FERROUS SULFATE 325 MG TAB PO SCH ×2 (08:36→22:38)
[2021-06-02] MEDS: busPIRone 5 MG TAB PO SCH ×2 (08:37→20:31)
[2021-06-02] MEDS: ASPIRIN 81 MG ECTAB PO SCH ×2 (08:37→20:31)
[2021-06-02] MEDS: DOXYCYCLINE HYCLATE 100 MG CAP PO SCH ×2 (08:37→20:31)
[2021-06-02] MEDS: guaiFENesin 600 MG TABCR PO SCH ×2 (08:37→20:30)
[2021-06-02] MEDS: FUROSEMIDE 20 MG TAB PO SCH (08:37)
[2021-06-02] MEDS: CEROVITE ADV FORMULA TAB PO SCH (08:37)
[2021-06-02] MEDS: LOSARTAN POTASSIUM 50 MG TAB PO SCH (08:37)
[2021-06-02] MEDS: amLODIPine BESYLATE 5 MG TAB PO SCH (08:37)
[2021-06-02] MEDS: FLUTICASONE/VILANTEROL 200/25MCG 14 PUFFS/INHALER INH SCH (08:38)
[2021-06-02] MEDS: INSULIN ASPART PER UNIT SC SCH ×4 (08:38→20:28)
[2021-06-02] MEDS: METOPROLOL TARTRATE 50 MG TAB PO SCH ×2 (08:38→17:28)
[2021-06-02] MEDS: INSULIN GLARGINE SOLOSTAR 100 UNITS/ML 3 ML PEN SC SCH (08:48)
[2021-06-02] MEDS: FAMOTIDINE 20 MG in SYRINGE 3 ML IV SCH (09:52)
[2021-06-02] MEDS ORDERED: ALBUT/IPRATROP 3MG/0.5MG NEB 3 ML VIAL NEB PRN (12:02)
--- NOTE | 2021-06-02 12:05 | Hospitalist Progress Note ---
Date of Service June 02, 2021 Assessment & Plan (1) Multifocal pneumonia: Plan: Day 7 of Zosyn/Doxy for pseudomonas pneumonia. Breathing appears back to baseline. Still with some course breath sounds. Decrease duonebs to PRN. Cont to monitor. (2) Acute on chronic respiratory failure with hypoxia: Plan: Appears resolved back to baseline now after treatment. Appears to have a chronic oxygen dependence but isn't certain why. Has yet to establish with a assistant winemaker. Was previously on 2LPM prior to admission. Cont abx therapy and prednisone as ordered. (3) Leukocytosis: Plan: Likely somewhat influenced by steroid use. Pt is afebrile and appears improved from an infectious standpoint. (4) Acute worsening of stage 3 chronic kidney disease: Plan: Had an initial bump in creatinine on admission to 1.35. This improved to baseline and is now up to 1.2 today. Questionable PO intake, will hold losartan and lasix and give 1 bag NSS with repeat BMP in am. (5) Encephalopathy due to infection: Plan: resolved to her baseline. (6) Anemia: Plan: chronic, possibly related to chronic disease. No over blood loss. (7) DVT prophylaxis: Plan: Lovenox DNR/DNI Dispo-[facility] Shannon Hitchcock DO [facility] Hospitalist Admission and Anticipated Discharge Date Admission Date: May 26, 2021 Subjective She is an 85-year-old female with significant past medical history of asthma/COPD, type 2 diabetes, nocturnal hypoxia, hypertension, Dumont cirrhosis, anxiety and osteoporosis apparently has been complaining of shortness of breath for the last 2 weeks Noted to have multifocal pneumonia with increasing white count and requiring BiPAP on admission Today she is doing well, feels her breathing is back to baseline states "every time i turn around im getting another breathing treatment" Denies chest pain denies abdominal pain afebrile reports that she doesn't move much and baseline uses walker with assistance. she is requesting to keep her villeda in place despite verbalizing understanding of the infection risk it presents requests villeda because of incontinence. Review of Systems Review of Systems: All systems were reviewed and negative except as indicated on HPI above. Physical Exam Physical Exam: CONSTITUTIONAL: WNWD, vitals as above, generally NAD, sitting in chair, eating lunch EYES: normal conjunctivae, no scleral icterus, ENT: external ear and nose normal NECK: trachea midline RESPIRATORY: coarse breath sounds throughout all lung lara, no wheezing, normal respiratory effort CARDIOVASCULAR: regular rate and rhythm, S1 and 2 heard without murmurs, gallops or rubs, no JVD, no peripheral edema CHEST: inspection of chest was normal GASTROINTESTINAL: soft, nontender, ND, no guarding MUSCULOSKELETAL: generalized weakness, head is normocephalic and atraumatic SKIN: warm and dry NEUROLOGIC: CN 2-12 grossly intact, no sensory deficit, normal cognition, normal speech, no tremor PSYCHIATRIC: alert cooperative and oriented to person, place and time. Results & Data Results & Data ([facility]) Vital Signs (Past 12 Hours) Vital Signs Temp Pulse Pulse Resp BP Pulse Ox 06/02/21 11:03 36.5 C 62 17 97/42 L 95 06/02/21 08:35 78 138/66 06/02/21 07:14 37.0 C 80 17 98/63 L 100 06/02/21 07:10 77 20 97 06/02/21 06:15 69 06/02/21 03:40 36.6 C 73 18 155/71 H 95 Laboratory Results Short CBC 06/02/21 Range/Units 06:50 WBC 14.82 H (4.8-10.8) K/uL Hgb 7.8 L (12.0-16.0) g/dL Hct 25.7 L (37-47) % Plt Count 219 (130-400) K/uL BMP 06/02/21 06:50 Sodium 145 Potassium 3.9 D Chloride 103 Carbon Dioxide 38 H BUN 31 H Creatinine 1.21 H D Glucose 100 H Calcium 8.4 L Medications Administered Current Inpatient Medications Acetaminophen (Acetaminophen 325 Mg Tab) 650 mg PO Q4H PRN PRN Reason: Pain or Fever Stop: 06/25/21 22:39 Last Admin: 05/30/21 20:37 Dose: 650 mg Documented by: Al Hydrox/Mg Hydrox/Simethicone (Aluminum/Magnesium Susp 30 Ml Udc) 15 ml PO Q4H PRN PRN Reason: Dyspepsia Stop: 06/25/21 22:39 Albuterol (Albut/Ipratrop 3mg/0.5mg Neb 3 Ml Vial) 3 ml NEB Q2H PRN; Protocol PRN Reason: SOB/wheezing Stop: 04/22/22 23:04 Albuterol (Albut/Ipratrop 3mg/0.5mg Neb 3 Ml Vial) 3 ml NEB TIDR [facility]; Protocol Stop: 07/01/21 18:59 Last Admin: 06/02/21 07:07 Dose: 3 ml Documented by: Amlodipine Besylate (Amlodipine Besylate 5 Mg Tab) 10 mg PO QAM [facility] Stop: 06/30/21 03:39 Last Admin: 06/02/21 08:37 Dose: 10 mg Documented by: Aspirin (Aspirin 81 Mg Ectab) 81 mg PO [facility] Stop: 06/25/21 22:39 Last Admin: 06/02/21 08:37 Dose: 81 mg Documented by: Atorvastatin Calcium (Atorvastatin 40 Mg Tab) 40 mg PO HS [facility] Stop: 06/25/21 22:39 Last Admin: 06/01/21 20:35 Dose: 40 mg Documented by: Buspirone HCl (Buspirone 5 Mg Tab) 5 mg PO BID [facility] Stop: 06/25/21 22:39 Last Admin: 06/02/21 08:37 Dose: 5 mg Documented by: Cetirizine HCl (Cetirizine Hcl 10 Mg Tablet) 10 mg PO QDL [facility] Stop: 06/26/21 11:29 Last Admin: 06/01/21 10:36 Dose: 10 mg Documented by: Dextrose (Dextrose 50% 50 Ml Syringe) 25 - 50 ml IV UD PRN; Protocol PRN Reason: Hypoglycemia Protocol Stop: 06/25/21 22:39 Doxycycline Hyclate (Doxycycline Hyclate 100 Mg Cap) 100 mg PO BID [facility] Stop: 06/02/21 22:39 Last Admin: 06/02/21 08:37 Dose: 100 mg Documented by: Duloxetine HCl (Duloxetine Hcl 60 Mg Cap) 60 mg PO QAM [facility] Stop: 06/26/21 08:59 Last Admin: 06/02/21 08:36 Dose: 60 mg Documented by: Ferrous Sulfate (Ferrous Sulfate 325 Mg Tab) 325 mg PO BID@1000,2200 [facility] Stop: 06/25/21 22:39 Last Admin: 06/02/21 08:36 Dose: 325 mg Documented by: Fluticasone/Vilanterol (Fluticasone/Vilanterol 200/25mcg 14 Puffs/Inhaler) 1 puffs INH DAILY [facility] Stop: 06/25/21 22:39 Last Admin: 06/02/21 08:38 Dose: 1 puffs Documented by: Furosemide (Furosemide 20 Mg Tab) 20 mg PO QAM [facility] Stop: 06/27/21 08:59 Last Admin: 06/02/21 08:37 Dose: 20 mg Documented by: Glucagon (Glucagon For Inj 1 Mg Vial) 1 mg SQ UD PRN; Protocol PRN Reason: Hypoglycemia Protocol Stop: 06/25/21 22:39 Glucose (Glucose 10 Tabs/Tube) 4 - 8 tabs PO UD PRN; Protocol PRN Reason: Hypoglycemia Protocol Stop: 06/25/21 22:39 Glucose (Glucose 40% Gel 15 Gm Tube) 15 - 30 gm PO UD PRN; Protocol PRN Reason: Hypoglycemia Protocol Stop: 06/25/21 22:39 Guaifenesin (Guaifenesin 600 Mg Tabcr) 600 mg PO Q12 [facility] Stop: 06/25/21 22:39 Last Admin: 06/02/21 08:37 Dose: 600 mg Documented by: Famotidine 20 mg/ Syringe 5 mls @ 2.5 mls/min IV DAILY [facility] Stop: 06/25/21 22:39 Last Admin: 06/02/21 09:52 Dose: 2.5 mls/min Documented by: Piperacillin Sod/Tazobactam (Sod 3.375 gm/ Dextrose) 115 mls @ 28.75 mls/hr IV Q8H [facility]; Protocol Stop: 06/03/21 05:59 Last Infusion: 06/02/21 09:58 Dose: Infused Documented by: Insulin Aspart (Insulin Aspart Per Unit) 0 units SC 0730 [facility] Stop: 06/25/21 22:39 Last Admin: 06/02/21 08:38 Dose: 1 units Documented by: Insulin Aspart (Insulin Aspart Per Unit) 0 units SC 1130,1630,2100 [facility] Stop: 06/27/21 11:29 Last Admin: 06/01/21 20:47 Dose: 6 units Documented by: Insulin Glargine (Insulin Glargine Solostar 100 Units/Ml 3 Ml Pen) 24 units SC DAILY [facility] Stop: 06/27/21 08:59 Last Admin: 06/02/21 08:48 Dose: 24 units Documented by: Isosorbide Mononitrate (Isosorbide Long Extended Rel 60 Mg Tabcr) 60 mg PO QAM [facility] Stop: 06/26/21 08:59 Last Admin: 06/02/21 08:35 Dose: 60 mg Documented by: Losartan Potassium (Losartan Potassium 50 Mg Tab) 50 mg PO QAM [facility] Stop: 06/27/21 08:59 Last Admin: 06/02/21 08:37 Dose: 50 mg Documented by: Magnesium Hydroxide (Magnesium Hydroxide Susp 30 Ml Udc) 30 ml PO Q12H PRN PRN Reason: Constipation Stop: 06/25/21 22:39 Metoprolol Tartrate (Metoprolol Tartrate 50 Mg Tab) 50 mg PO BIDM [facility] Stop: 06/25/21 22:39 Last Admin: 06/02/21 08:38 Dose: 50 mg Documented by: Miscellaneous (Carbohydrates For Hypoglycemia ) 15 - 30 gm PO UD PRN PRN Reason: Hypoglycemia Protocol Stop: 06/25/21 22:39 Miscellaneous Information (Pharmacy Glycemic Mgmt Consult) 1 ea N/A UD PRN; Protocol PRN Reason: Consult Stop: 06/25/21 22:39 Miscellaneous Information (Piperacill/Tazobac Consult Active) 1 ea N/A UD PRN PRN Reason: Consult Stop: 06/25/21 22:39 Montelukast Sodium (Montelukast Sodium 10 Mg Tablet) 10 mg PO HS [facility] Stop: 06/25/21 22:39 Last Admin: 06/01/21 20:34 Dose: 10 mg Documented by: Multivitamins/Minerals (Calcium 600mg + Vit D 400 Iu Tab) 1 tab PO QDL [facility] Stop: 06/26/21 11:29 Last Admin: 06/01/21 10:36 Dose: 1 tab Documented by: Multivitamins/Minerals (Cerovite Adv Formula Tab) 1 tab PO QAM [facility] Stop: 06/26/21 08:59 Last Admin: 06/02/21 08:37 Dose: 1 tab Documented by: Olanzapine (Olanzapine 10 Mg/2.1 Ml Sdv) 2.5 mg IM Q4H PRN PRN Reason: Anxiety/Agitation Stop: 06/26/21 21:11 Last Admin: 05/27/21 21:31 Dose: 2.5 mg Documented by: Ondansetron HCl (Ondansetron Inj 2 Mg/Ml 2 Ml Vial) 4 mg IV Q6H PRN PRN Reason: Nausea Stop: 06/25/21 22:39 Last Admin: 06/01/21 20:24 Dose: 4 mg Documented by: Pantoprazole Sodium (Pantoprazole 40 Mg Tab) [facility] Stop: 06/26/21 06:29 Last Admin: 06/02/21 06:09 Dose: 40 mg Documented by: Polyethylene Glycol (Polyethylene (Miralax) 17 Gm Pack) 17 gm PO DAILY PRN PRN Reason: Constipation Stop: 06/25/21 22:39 Prednisone (Prednisone 20 Mg Tab) 40 mg PO DAILY [facility] Stop: 07/01/21 08:59 Last Admin: 06/02/21 08:36 Dose: 40 mg Documented by:
[2021-06-02] MEDS: CETIRIZINE HCL 10 MG TABLET PO SCH (12:11)
[2021-06-02] MEDS: CALCIUM 600MG + VIT D 400 IU TAB PO SCH (12:11)
[2021-06-02] MEDS ORDERED: SODIUM CHLORIDE 0.9% 1000ML 1,000 ML IV SCH (12:15)
[2021-06-02] MEDS: HEPARIN SOD 5,000 UNIT/0.5 ML VIAL SQ SCH ×2 (14:49→22:39)
[2021-06-02] MEDS: ATORVASTATIN 40 MG TAB PO SCH (20:30)
[2021-06-02] MEDS: MONTELUKAST SODIUM 10 MG TABLET PO SCH (20:30)
[2021-06-03 05:50] LABS: Hematocrit (blood only) 29.2 % (37-47); Hemoglobin 8.7 g/dL (12.0-16.0); Mean Corpuscular Hemoglobin 27.2 pg (25-34); Mean Corpuscular Hgb Conc 29.8 g/dL (32-36); Mean Corpuscular Volume 91.3 fL (80-100); Mean Platelet Volume 10.1 fL (7.4-10.4); Platelet Count 220 K/uL (130-400); RDW Coefficient of Variation 16.2 % (11.5-14.5); RDW Standard Deviation 53.3 fL (36.4-46.3); White Blood Count 14.62 K/uL (4.8-10.8)
[2021-06-03] MEDS: PANTOprazole 40 MG TAB PO SCH (06:01)
[2021-06-03] MEDS: HEPARIN SOD 5,000 UNIT/0.5 ML VIAL SQ SCH ×3 (06:01→21:08)
[2021-06-03 06:10] LABS: BUN Creatinine Ratio 27.6 (10-20); Calcium 8.4 mg/dl (8.5-10.1); Creatinine Clr Calc Pharmacy 42.3 ml/min; Est GFR (African American) 61.8 ml/min; Est GFR (Non-African American) 53.3 ml/min; Potassium 3.9 mmol/L (3.5-5.1)
[2021-06-03] MEDS: guaiFENesin 600 MG TABCR PO SCH ×2 (07:38→21:06)
[2021-06-03] MEDS: ASPIRIN 81 MG ECTAB PO SCH ×2 (07:38→21:08)
[2021-06-03] MEDS: busPIRone 5 MG TAB PO SCH ×2 (07:38→21:07)
[2021-06-03] MEDS: ISOSORBIDE MONO EXTENDED REL 60 MG TABCR PO SCH (07:39)
[2021-06-03] MEDS: amLODIPine BESYLATE 5 MG TAB PO SCH (07:39)
[2021-06-03] MEDS: METOPROLOL TARTRATE 50 MG TAB PO SCH ×2 (07:39→17:04)
[2021-06-03] MEDS: predniSONE 20 MG TAB PO SCH (07:39)
[2021-06-03] MEDS: DULoxetine HCL 60 MG CAP PO SCH (07:39)
[2021-06-03] MEDS: FLUTICASONE/VILANTEROL 200/25MCG 14 PUFFS/INHALER INH SCH (07:40)
[2021-06-03] MEDS: CEROVITE ADV FORMULA TAB PO SCH (07:40)
[2021-06-03] MEDS: INSULIN ASPART PER UNIT SC SCH ×5 (08:22→21:09)
[2021-06-03] MEDS: INSULIN GLARGINE SOLOSTAR 100 UNITS/ML 3 ML PEN SC SCH (08:22)
[2021-06-03] MEDS: FAMOTIDINE 20 MG in SYRINGE 3 ML IV SCH (08:56)
[2021-06-03] MEDS: FERROUS SULFATE 325 MG TAB PO SCH ×2 (09:54→21:07)
[2021-06-03] MEDS: CETIRIZINE HCL 10 MG TABLET PO SCH (09:54)
[2021-06-03] MEDS: LOSARTAN POTASSIUM 50 MG TAB PO SCH (09:54)
[2021-06-03] MEDS: CALCIUM 600MG + VIT D 400 IU TAB PO SCH (09:55)
[2021-06-03] MEDS: ACETAMINOPHEN 325 MG TAB PO PRN (12:25)
[2021-06-03] MEDS: MONTELUKAST SODIUM 10 MG TABLET PO SCH (21:06)
[2021-06-03] MEDS: ATORVASTATIN 40 MG TAB PO SCH (21:07)
--- NOTE | 2021-06-03 22:28 | Hospitalist Progress Note ---
Date of Service June 03, 2021 Assessment & Plan (1) Multifocal pneumonia: Plan: Completed Zosyn/Doxy for pseudomonas pneumonia. Breathing appears back to baseline. Duonebs PRN. Baseline oxygen supplementation. (2) Acute on chronic respiratory failure with hypoxia: Plan: Appears resolved back to baseline now after medical treatment. Appears to have a chronic oxygen dependence but isn't certain why. Has yet to establish with a power engineer. Was previously on 2LPM prior to admission. Cont abx therapy and prednisone as ordered. (3) Leukocytosis: Plan: Likely somewhat influenced by steroid use. Pt is afebrile and appears improved from an infectious standpoint. (4) Acute worsening of stage 3 chronic kidney disease: Plan: Had an initial bump in creatinine on admission to 1.35. This improved to baseline and is now up to 1.2 today. Questionable PO intake, will hold losartan and lasix and give 1 bag NSS with repeat BMP in am. (5) Encephalopathy due to infection: Plan: resolved to her baseline. (6) Anemia: Plan: chronic, possibly related to chronic disease. No over blood loss. (7) DVT prophylaxis: Plan: Lovenox DNR/DNI [facility]po[facility], plan to send her back there tomorrow. Shannon Hitchcock DO [facility] Admission and Anticipated Discharge Date Admission Date: May 26, 2021 Subjective She is an 85-year-old female with significant past medical history of asthma/COPD, type 2 diabetes, nocturnal hypoxia, hypertension, Dumont cirrhosis, anxiety and osteoporosis apparently has been complaining of shortness of breath for the last 2 weeks Noted to have multifocal pneumonia with increasing white count and requiring BiPAP on admission Today she is doing well, feels her breathing is back to baseline Denies chest pain denies abdominal pain afebrile reports that she doesn't move much and baseline uses walker with assistance. Review of Systems Review of Systems: All systems were reviewed and negative except as indicated on HPI above. Physical Exam Physical Exam: CONSTITUTIONAL: WNWD, vitals as above, generally NAD, EYES: normal conjunctivae, no scleral icterus, ENT: external ear and nose normal NECK: trachea midline RESPIRATORY: coarse breath sounds throughout all lung lara, no wheezing, normal respiratory effort CARDIOVASCULAR: regular rate and rhythm, S1 and 2 heard without murmurs, gallops or rubs, no JVD, no peripheral edema CHEST: inspection of chest was normal GASTROINTESTINAL: soft, nontender, ND, no guarding MUSCULOSKELETAL: generalized weakness, head is normocephalic and atraumatic SKIN: warm and dry NEUROLOGIC: CN 2-12 grossly intact, no sensory deficit, normal cognition, normal speech, no tremor PSYCHIATRIC: alert cooperative and oriented to person, place and time. Results & Data Results & Data ([facility]) Vital Signs (Past 12 Hours) Vital Signs Temp Pulse Pulse Resp BP Pulse Ox 06/03/21 22:17 36.7 C 67 16 153/63 H 95 06/03/21 16:23 36.6 C 71 17 122/47 L 96 06/03/21 16:11 67 06/03/21 11:16 36.7 C 65 16 133/54 L 95 Laboratory Results Short CBC 06/03/21 Range/Units 05:33 WBC 14.62 H (4.8-10.8) K/uL Hgb 8.7 L (12.0-16.0) g/dL Hct 29.2 L (37-47) % Plt Count 220 (130-400) K/uL BMP 06/03/21 05:33 Sodium 142 Potassium 3.9 Chloride 102 Carbon Dioxide 37 H BUN 27 H Creatinine 0.98 Glucose 92 Calcium 8.4 L Medications Administered Current Inpatient Medications Acetaminophen (Acetaminophen 325 Mg Tab) 650 mg PO Q4H PRN PRN Reason: Pain or Fever Stop: 06/25/21 22:39 Last Admin: 06/03/21 12:25 Dose: 650 mg Documented by: Al Hydrox/Mg Hydrox/Simethicone (Aluminum/Magnesium Susp 30 Ml Udc) 15 ml PO Q4H PRN PRN Reason: Dyspepsia Stop: 06/25/21 22:39 Last Admin: 06/02/21 21:10 Dose: 15 ml Documented by: Albuterol (Albut/Ipratrop 3mg/0.5mg Neb 3 Ml Vial) 3 ml NEB TIDR PRN; Protocol PRN Reason: SOB/wheezing Stop: 07/01/21 18:59 Amlodipine Besylate (Amlodipine Besylate 5 Mg Tab) [facility] [place]: 06/30/21 03:39 Last Admin: 06/03/21 07:39 Dose: 10 mg Documented by: Aspirin (Aspirin 81 Mg Ectab) 81 mg PO [facility] Stop: 06/25/21 22:39 Last Admin: 06/03/21 21:08 Dose: 81 mg Documented by: Atorvastatin Calcium (Atorvastatin 40 Mg Tab) 40 mg PO HS [facility] Stop: 06/25/21 22:39 Last Admin: 06/03/21 21:07 Dose: 40 mg Documented by: Buspirone HCl (Buspirone 5 Mg Tab) 5 mg PO BID [facility] Stop: 06/25/21 22:39 Last Admin: 06/03/21 21:07 Dose: 5 mg Documented by: Cetirizine HCl (Cetirizine Hcl 10 Mg Tablet) 10 mg PO QDL [facility] Stop: 06/26/21 11:29 Last Admin: 06/03/21 09:54 Dose: 10 mg Documented by: Dextrose (Dextrose 50% 50 Ml Syringe) 25 - 50 ml IV UD PRN; Protocol PRN Reason: Hypoglycemia Protocol Stop: 06/25/21 22:39 Duloxetine HCl (Duloxetine Hcl 60 Mg Cap) 60 mg PO QAM [facility] Stop: 06/26/21 08:59 Last Admin: 06/03/21 07:39 Dose: 60 mg Documented by: Famotidine (Famotidine 20 Mg Tab) 20 mg PO QAM [facility] Stop: 07/04/21 08:59 Ferrous Sulfate (Ferrous Sulfate 325 Mg Tab) 325 mg PO BID@1000,2200 [facility] Stop: 06/25/21 22:39 Last Admin: 06/03/21 21:07 Dose: 325 mg Documented by: Fluticasone/Vilanterol (Fluticasone/Vilanterol 200/25mcg 14 Puffs/Inhaler) 1 puffs INH DAILY [facility] Stop: 06/25/21 22:39 Last Admin: 06/03/21 07:40 Dose: 1 puffs Documented by: Furosemide (Furosemide 20 Mg Tab) 20 mg PO QAM [facility] Stop: 06/27/21 08:59 Last Admin: 06/02/21 08:37 Dose: 20 mg Documented by: Glucagon (Glucagon For Inj 1 Mg Vial) 1 mg SQ UD PRN; Protocol PRN Reason: Hypoglycemia Protocol Stop: 06/25/21 22:39 Glucose (Glucose 10 Tabs/Tube) 4 - 8 tabs PO UD PRN; Protocol PRN Reason: Hypoglycemia Protocol Stop: 06/25/21 22:39 Glucose (Glucose 40% Gel 15 Gm Tube) 15 - 30 gm PO UD PRN; Protocol PRN Reason: Hypoglycemia Protocol Stop: 06/25/21 22:39 Guaifenesin (Guaifenesin 600 Mg Tabcr) 600 mg PO Q12 [facility] Stop: 06/25/21 22:39 Last Admin: 06/03/21 21:06 Dose: 600 mg Documented by: Heparin Sodium (Porcine) (Heparin Sod 5,000 Unit/0.5 Ml Vial) 5,000 units SQ Q8 [facility] Stop: 07/02/21 13:59 Last Admin: 06/03/21 21:08 Dose: 5,000 units Documented by: Insulin Aspart (Insulin Aspart Per Unit) 0 units SC 0730 [facility] Stop: 06/25/21 22:39 Last Admin: 06/03/21 08:22 Dose: 15 units Documented by: Insulin Aspart (Insulin Aspart Per Unit) 0 units SC 1130,1630,2100 [facility] Stop: 06/27/21 11:29 Last Admin: 06/03/21 21:09 Dose: Not Given Documented by: Insulin Glargine (Insulin Glargine Solostar 100 Units/Ml 3 Ml Pen) 24 units SC DAILY [facility] Stop: 06/27/21 08:59 Last Admin: 06/03/21 08:22 Dose: 24 units Documented by: Isosorbide Mononitrate (Isosorbide [place] Extended Rel 60 Mg Tabcr) 60 mg PO QAM [facility] Stop: 06/26/21 08:59 Last Admin: 06/03/21 07:39 Dose: 60 mg Documented by: Losartan Potassium (Losartan Potassium 50 Mg Tab) 50 mg PO QAM [facility] Stop: 07/03/21 09:29 Last Admin: 06/03/21 09:54 Dose: 50 mg Documented by: Magnesium Hydroxide (Magnesium Hydroxide Susp 30 Ml Udc) 30 ml PO Q12H PRN PRN Reason: Constipation Stop: 06/25/21 22:39 Metoprolol Tartrate (Metoprolol Tartrate 50 Mg Tab) 50 mg PO BIDM [facility] Stop: 06/25/21 22:39 Last Admin: 06/03/21 17:04 Dose: 50 mg Documented by: Miscellaneous (Carbohydrates For Hypoglycemia ) 15 - 30 gm PO UD PRN PRN Reason: Hypoglycemia Protocol Stop: 06/25/21 22:39 Miscellaneous Information (Pharmacy Glycemic Mgmt Consult) 1 ea N/A UD PRN; Protocol PRN Reason: Consult Stop: 06/25/21 22:39 Montelukast Sodium (Montelukast Sodium 10 Mg Tablet) 10 mg PO HS [facility] Stop: 06/25/21 22:39 Last Admin: 06/03/21 21:06 Dose: 10 mg Documented by: Multivitamins/Minerals (Calcium 600mg + Vit D 400 Iu Tab) 1 tab PO QDL [facility] Stop: 06/26/21 11:29 Last Admin: 06/03/21 09:55 Dose: 1 tab Documented by: Multivitamins/Minerals (Cerovite Adv Formula Tab) 1 tab PO QAM [facility] Stop: 06/26/21 08:59 Last Admin: 06/03/21 07:40 Dose: 1 tab Documented by: Ondansetron HCl (Ondansetron Inj 2 Mg/Ml 2 Ml Vial) 4 mg IV Q6H PRN PRN Reason: Nausea Stop: 06/25/21 22:39 Last Admin: 06/01/21 20:24 Dose: 4 mg Documented by: Pantoprazole Sodium (Pantoprazole 40 Mg Tab) 40 mg PO DAILYBB [facility] Stop: 06/26/21 06:29 Last Admin: 06/03/21 06:01 Dose: 40 mg Documented by: Polyethylene Glycol (Polyethylene (Miralax) 17 Gm Pack) 17 gm PO DAILY PRN PRN Reason: Constipation Stop: 06/25/21 22:39 Prednisone (Prednisone 20 Mg Tab) 40 mg PO DAILY [facility] Stop: 07/01/21 08:59 Last Admin: 06/03/21 07:39 Dose: 40 mg Documented by:
[2021-06-04] MEDS: HEPARIN SOD 5,000 UNIT/0.5 ML VIAL SQ SCH ×2 (05:54→13:10)
[2021-06-04] MEDS: PANTOprazole 40 MG TAB PO SCH (05:54)
[2021-06-04] MEDS ORDERED: FAMOTIDINE 20 MG TAB PO SCH (09:00)
[2021-06-04] MEDS ORDERED: INSULIN GLARGINE SOLOSTAR 100 UNITS/ML 3 ML PEN SC SCH (09:00)
[2021-06-04] MEDS: INSULIN ASPART PER UNIT SC SCH ×2 (09:41→12:52)
[2021-06-04] MEDS: ISOSORBIDE MONO EXTENDED REL 60 MG TABCR PO SCH (09:42)
[2021-06-04] MEDS: CEROVITE ADV FORMULA TAB PO SCH (09:43)
[2021-06-04] MEDS: DULoxetine HCL 60 MG CAP PO SCH (09:43)
[2021-06-04] MEDS: guaiFENesin 600 MG TABCR PO SCH (09:43)
[2021-06-04] MEDS: METOPROLOL TARTRATE 50 MG TAB PO SCH (09:43)
[2021-06-04] MEDS: LOSARTAN POTASSIUM 50 MG TAB PO SCH (09:44)
[2021-06-04] MEDS: amLODIPine BESYLATE 5 MG TAB PO SCH (09:44)
[2021-06-04] MEDS: busPIRone 5 MG TAB PO SCH (09:44)
[2021-06-04] MEDS: FERROUS SULFATE 325 MG TAB PO SCH (09:44)
[2021-06-04] MEDS: predniSONE 20 MG TAB PO SCH (09:45)
[2021-06-04] MEDS: ASPIRIN 81 MG ECTAB PO SCH (09:46)
[2021-06-04] MEDS: FLUTICASONE/VILANTEROL 200/25MCG 14 PUFFS/INHALER INH SCH (09:47)
--- NOTE | 2021-06-04 11:58 | Discharge Summary ---
Date of Service June 04, 2021 Admission HPI Per Admitting Provider This is an 85-year-old female with PMHx of Asthma/COPD, DMII, HLD, Nocturnal hypoxia, HTN, OJEDA cirrhosis, CAD, Urinary incontinence, Anxiety, Lumbar DDD, Osteoporosis who presents to ED secondary to shortness breath and cough x2 weeks. History obtained from records in [facility] as follows discussion with ED provider. Patient able to give minimal history secondary to being on BiPAP. Approximately 2 weeks ago patient developed a productive cough purulent sputum and worsening shortness of breath. She was treated with IM Solu-Medrol and started on oral doxycycline. She was seen and evaluated in ED on 05/22 travails leukocytosis of 17,000k. Chest x-ray at that time revealed interstitial thickening and patchy bilateral opacities concerning for infectious process. He was continued on oral doxycycline and discharged back to [facility]. She presents today due to worsening symptoms and hypoxia. At baseline patient is on 2 L at bedtime. Currently she is requiring 5 L in ED. She remained hemodynamically stable in ED although hypoxic. Her VBG did reveal an impending respiratory acidosis. Due to patient becoming more somnolent and fatigued she was placed on BiPAP therapy. Chest x-ray concerning for multifocal pneumonia. She was started on broad-spectrum IV antibiotics with vancomycin and Zosyn. ROS unobtainable from patient due to current cognitive and respiratory status. Principal Diagnosis Acute respiratory failure Pneumonia Discharge Exam CONSTITUTIONAL: WNWD, vitals as above, generally NAD, EYES: normal conjunctivae, no scleral icterus, ENT: external ear and nose normal NECK: trachea midline RESPIRATORY: coarse breath sounds throughout all lung lara, no wheezing, normal respiratory effort CARDIOVASCULAR: regular rate and rhythm, S1 and 2 heard without murmurs, gallops or rubs, no JVD, no peripheral edema CHEST: inspection of chest was normal GASTROINTESTINAL: soft, nontender, ND, no guarding MUSCULOSKELETAL: generalized weakness, head is normocephalic and atraumatic SKIN: warm and dry NEUROLOGIC: CN 2-12 grossly intact, no sensory deficit, normal cognition, normal speech, no tremor PSYCHIATRIC: alert cooperative and oriented to person, place and time. Discharge Data Allergies Allergy/AdvReac Type Severity Reaction Status Date / Time azelastine Allergy Intermediate elevated bp Verified 05/26/21 14:53 trospium Allergy Intermediate hives Verified 05/26/21 14:53 azithromycin Allergy Mild Rash Verified 05/26/21 14:53 citalopram Allergy Unknown UNKNOWN Verified 05/26/21 14:53 chlorpheniramine AdvReac Intermediate ELEVATED BP Verified 05/26/21 14:53 Corticosteroids AdvReac Intermediate ELEVATED BP Verified 05/26/21 14:53 (Glucocorticoids) fexofenadine AdvReac Intermediate ELEVATED BP Verified 05/26/21 14:53 fluticasone AdvReac Intermediate ELEVATED BP Verified 05/26/21 14:53 hydrocodone AdvReac Intermediate ELEVATED BP Verified 05/26/21 14:53 magnesium salicylate AdvReac Intermediate ELEVATED BP Verified 05/26/21 14:53 salicylates AdvReac Intermediate ELEVATED BP Verified 05/22/21 20:01 Consultations 05/26/21 16:16 ED Decision to Admit Stat Ordered Studies 05/26/21 14:03 CT abd pelvis IV con only Stat CT angio chest PE protocol Stat Hospital Course (1) Multifocal pneumonia: Completed Zosyn/Doxy for pseudomonas pneumonia. Breathing appears back to baseline. Duonebs PRN. Patient was on baseline oxygen supplementation at time of discharge. (2) Acute on chronic respiratory failure with hypoxia: Appears resolved back to baseline now after medical treatment. Appears to have a chronic oxygen dependence but isn't certain why. Has yet to establish with a butt maker. Was previously on 2LPM prior to admission. (3) Leukocytosis: Likely somewhat influenced by steroid use. Pt is afebrile and appears improved from an infectious standpoint. PCP to consider repeat CBC and imaging as outpatient to ensure complete resolution of pneumonia. (4) Acute worsening of stage 3 chronic kidney disease: Had an initial bump in creatinine on admission to 1.35. This improved to baseline and went back up to 1.2. Questionable PO intake-- will hold losartan and lasix and give 1 bag NSS with repeat BMP the following morning showing creatinine 0.98 (5) Encephalopathy due to infection: resolved to her baseline. (6) Anemia: chronic, possibly related to chronic disease. No overt blood loss. (7) Renal mass: Total Time Total Time Spent Total Time Spent (In Minutes): 60 Discharge Plan Discharge Items Patient Disposition: Transfer [facility] Reason For Visit: MULTIFOCAL PNEUMONIA, A/C RESPIRATORY FAILURE, RES Discharge Diagnosis: Acute respiratory failure Pneumonia Condition on Discharge: Good Activity: Resume your previous activity Non-emergency contact: Primary Care Provider Call non-emergency contact if: you have any medication questions, your symptoms worsen, your pain is not controlled, your pain is worsening, your pain is unusual for you, your pain is concerning for you and you have a fever Follow-up/Referrals: Garcia Lira [Primary Care Provider] - Diet: Carb Consistent or DM2 Addtl Attending Provider Instructions: Please take all medications as instructed on discharge list below. Please follow-up with your primary care provider within 7 days of discharge to ensure you are still doing well. At this time, repeat chest imaging may be considered to ensure complete resolution of your pneumonia. On imaging performed in the hospital, you were found to have a cirrhotic appearance to your liver. Also, a 0.9cm enhancing nodule was seen in the right kidney. A 6 month follow up with a renal contrast enhanced renal protocol CT or MRI is recommended for further evaluation and to exclude underlying malignancy. This may be ordered by your primary care provider. It was a pleasure taking care of you! Please call if you have any questions or problems. You can reach a [facility] hospitalist on duty at [facility] 24 hours a day by calling [phone]. Take care of yourself. Shannon Hitchcock, DO [facility] Hospitalist Pending Studies at Discharge: No Stand-Alone Forms: [facility] Skilled Items Patient informed of condition?: Yes DNR: Yes Discharge Level of Care: Skilled Communicable Disease: No Discharge Prognosis: Stable Lines: None Urinary Catheter: No Medications and DC Order Prescriptions: Continued amlodipine [Norvasc] 10 mg tablet 10 mg PO QAM RF: 0 montelukast [Singulair] 10 mg tablet 10 mg PO HS RF: 0 isosorbide mononitrate 60 mg tablet extended release 24 hr 60 mg PO QAM RF: 0 furosemide 20 mg tablet 20 mg PO QAM RF: 0 nitroglycerin 0.4 mg tablet, sublingual 0.4 mg SL Q5M PRN (Reason: Chest Pain) RF: 0 aspirin 81 mg Tablet,Delayed Release (Dr/Ec) 81 mg PO AMHS RF: 0 duloxetine [Cymbalta] 60 mg capsule,delayed release(DR/EC) 60 mg PO QAM RF: 0 cetirizine 10 mg Tablet 10 mg PO QDL RF: 0 acetaminophen 500 mg tablet 500 mg PO BID RF: 0 metoprolol tartrate 50 mg tablet 50 mg PO BIDM RF: 0 losartan 50 mg Tablet 50 mg PO QAM RF: 0 atorvastatin 40 mg Tablet 40 mg PO HS RF: 0 omeprazole 40 mg Capsule,Delayed Release(Dr/Ec) 40 mg PO DAILYBB RF: 0 Cerovite Senior Tablet 1 tab PO QAM RF: 0 calcium carbonate-vitamin D3 [Oyster Shell Calcium-Vit D3] 500 mg(1,250mg) - 200 unit tablet 1 tab PO QDL RF: 0 fluticasone propion-salmeterol [Advair Diskus] 250-50 mcg/dose blister with device 1 inh INHALATION AMHS RF: 0 ipratropium-albuterol 0.5 mg-3 mg(2.5 mg base)/3 mL solution for nebulization 3 ml INHALATION TID RF: 0 albuterol sulfate 90 mcg/actuation Hfa Aerosol Inhaler 2 puff INHALATION QID PRN (Reason: Shortness Of Breath) RF: 0 buspirone 5 mg tablet 5 mg PO BID RF: 0 Lantus Solostar U-100 Insulin 100 unit/mL (3 mL) insulin pen 14 unit SUBCUT HS RF: 0 insulin aspart U-100 [Novolog U-100 Insulin aspart] 100 unit/mL solution 8 unit subcut AC RF: 0 guaifenesin [Tussin Mucus-Chest Congestion] 100 mg/5 mL liquid 200 mg PO Q4H PRN (Reason: Cough) RF: 0 tramadol 50 mg tablet 25 mg PO TID PRN (Reason: pain) RF: 0 food supplemt, lactose-reduced Liquid 1 ea PO DAILY RF: 0 ferrous sulfate 325 mg (65 mg iron) tablet 325 mg PO AMHS RF: 0 gabapentin 100 mg capsule 100 mg PO BID RF: 0 melatonin 3 mg Tablet 3 mg PO HS RF: 0 psyllium Powder 1 tbsp PO BID RF: 0 metformin 1,000 mg tablet 1,000 mg PO QAM RF: 0 polyethylene glycol 3350 [Miralax] 17 gram powder in packet 17 g PO BID RF: 0 ondansetron HCl 4 mg tablet 4 mg PO Q6 PRN (Reason: Nausea And Vomiting) RF: 0 vitamin B complex Capsule 1 cap PO .DAILY AT NOON RF: 0 nystatin 100,000 unit/gram Powder 1 applic TOPICAL QS RF: 0 Eucerin Original Lotion 1 applic TOPICAL BID RF: 0 Theracalazinc 1 applic topical QS RF: 0 acetaminophen 325 mg Tablet 650 mg PO Q4 MDD 3g PRN (Reason: Fever Or Pain) RF: 0 ipratropium-albuterol 0.5 mg-3 mg(2.5 mg base)/3 mL solution for nebulization 3 ml INHALATION QID PRN (Reason: Shortness Of Breath Or Wheezing) RF: 0 alum-mag hydroxide-simeth [Maalox Advanced] 200-200-20 mg/5 mL Suspension 30 ml PO Q6 PRN (Reason: nausea/indigestion) RF: 0 Discontinued prednisone 20 mg tablet 40 mg PO .[id number] RF: 0 prednisone 20 mg tablet 20 mg PO .[id number] RF: 0 doxycycline hyclate 100 mg capsule 100 mg PO BID RF: 0 nystatin 100,000 unit/mL suspension 5 ml PO QID RF: 0 Discharge Orders: Discharge Order (Routine); Ordered 06/04/21 Ordered By: Shannon Olvera/Other Patient Handouts: Managing Type 2 Diabetes Admission Data Admit Date/Time: 05/26/21 16:33 Attending Provider: Shannon Hitchcock Admit Provider: Carmelo Paredes Primary Care Provider: Garcia Lira Other Providers: Carmelo Paredes Other Interventions: Discharge Summary Assessment (RN) Last Done: 06/04/21 11:23
[2021-06-04] MEDS: CETIRIZINE HCL 10 MG TABLET PO SCH (12:46)
[2021-06-04] MEDS: CALCIUM 600MG + VIT D 400 IU TAB PO SCH (12:46)
--- NOTE | 2021-06-14 12:01 | Coding Query ---
CODING QUERY To promote full compliance with coding requirements relating to patient care, provider participation is requested in all cases of transverse abdominal muscle surgeon uncertainty. Please assist us with the question(s) below: Please clarify the meaning of SAPPHIRE. SAPPHIRE is not a valid abbreviation. Thank you. ( ) Acute Kidney Injury ( ) Acute Kidney Insufficiency ( ) Other (Specify): Principal Diagnosis: "that condition established after study, to be chiefly responsible for occasioning the admission of the patient to the hospital for care." Co-Existing Principal Diagnosis: "when two or more diagnoses equally meet the criteria for principal diagnosis as determined by the circumstances of admission, diagnostic work up, and/or therapy provided, and the Alphabetic Index, Tabular List, or another coding guideline does not provide sequencing direction, any one of the diagnoses may be sequenced first." "When the physician has documented what appears to be a current diagnosis in the body of the record, but has not included the diagnosis in the final diagnostic statement, the physician should be asked whether the diagnosis should be added." ([facility] 2 QTR90. p3-4) MAKSIM
--- NOTE | 2021-06-16 10:48 | Communication Note ---
Date of Service: June 16, 2021 CODING QUERY To promote full compliance with coding requirements relating to patient care, provider participation is requested in all cases of marketing and outreach coordinator uncertainty. Please assist us with the question(s) below: Please clarify the meaning of SAPPHIRE. SAPPHIRE is not a valid abbreviation. Thank you. ( x ) Acute Kidney Injury. Please note "acute worsening of CKD 3" is documented throughout the record, also. Thanks. sms ( ) Acute Kidney Insufficiency ( ) Other (Specify): Principal Diagnosis: "that condition established after study, to be chiefly responsible for occasioning the admission of the patient to the hospital for care." Co-Existing Principal Diagnosis: "when two or more diagnoses equally meet the criteria for principal diagnosis as determined by the circumstances of admission, diagnostic work up, and/or therapy provided, and the Alphabetic Index, Tabular List, or another coding guideline does not provide sequencing direction, any one of the diagnoses may be sequenced first." "When the physician has documented what appears to be a current diagnosis in the body of the record, but has not included the diagnosis in the final diagnostic statement, the physician should be asked whether the diagnosis should be added." ([facility] 2 QTR90. p3-4)
== END 2021-06-04 14:48 | DRG 177 ==
LOC: ED 13:32 → EDINP 16:33 → SUATTDRO 16:33 → 2S 20:40 → 3W 06-03 18:44

== ENCOUNTER 2022-02-15 10:01 | Inpatient (IN) ==
[2022-02-15 11:01] LABS: Basophils # (auto) 0.02 K/uL (0-0.2); Basophils % (auto) 0.1 %; Hematocrit (blood only) 33.8 % (34.1-44.9); Hemoglobin 10.7 g/dl (12.0-16.0); Immature Granulocytes # (auto) 0.24 K/uL (0.00-0.02); Immature Granulocytes % (auto) 1.2 %; Lymphocytes # (auto) 1.88 K/uL (1.2-3.4); Lymphocytes % (auto) 9.3 %; Mean Corpuscular Hgb Conc 31.7 g/dL (32.0-36.0); Mean Platelet Volume 11.3 fL (9.4-12.3); Monocytes # (auto) 1.05 K/uL (0.24-0.82); Monocytes % (auto) 5.2 %; Neutrophils # (auto) 17.12 K/uL (1.4-6.5); Neutrophils % (auto) 84.2 %; Platelet Count 228 K/uL (130-400); RDW Coefficient of Variation 13.9 % (11.5-14.5); RDW Standard Deviation 49.8 fL (36.4-46.3); Red Blood Count 3.45 M/uL (3.93-5.22); White Blood Count 20.31 K/ul (4.8-10.8)
[2022-02-15 11:08] LABS: HCO3 VBG 41 mmol/L; Oxygen Saturation VBG 60.6 %; PCO2 VBG 64 mmHg (38-50); PO2 VBG 34 mmHg; pH VBG 7.41 (7.36-7.41)
[2022-02-15 11:34] LABS: Troponin I High Sensitivity 8.4 pg/ml (0-14)
[2022-02-15 11:44] LABS: Albumin Globulin Ratio 0.9 (0.9-2); Albumin Level 3.1 gm/dl (3.4-5.0); Bilirubin,Total 0.4 mg/dl (0.2-1.0); Calcium 9.8 mg/dl (8.5-10.1); Creatinine Clr Calc Pharmacy 45.3 ml/min; Est GFR (African American) 71.9 ml/min; Globulin 3.6 gm/dl (2.5-4.0); Magnesium 1.7 mg/dl (1.7-2.4); Potassium 4.1 mmol/L (3.5-5.1); Total Protein 6.7 gm/dl (6.0-8.3)
[2022-02-15 12:30] LABS: Adenovirus PCR Not Detected (NotDetected); Bordetella parapertussis PCR Not Detected (NotDetected); Bordetella pertussis PCR Not Detected (NotDetected); Chlamydia pneumoniae PCR Not Detected (NotDetected); Coronavirus 229E PCR Not Detected (NotDetected); Coronavirus CoV-2 (COVID19)PCR Not Detected (NotDetected); Coronavirus HKU1 PCR Not Detected (NotDetected); Coronavirus NL63 PCR Not Detected (NotDetected); Coronavirus OC43PCR Not Detected (NotDetected); Human Metapneumovirus PCR Not Detected (NotDetected); Influenza A PCR Not Detected (NotDetected); Influenza B PCR Not Detected (NotDetected); Mycoplasma pneumoniae PCR Not Detected (NotDetected); Parainfluenza Virus 1 PCR Not Detected (NotDetected); Parainfluenza Virus 2 PCR Not Detected (NotDetected); Parainfluenza Virus 3 PCR Not Detected (NotDetected); Parainfluenza Virus 4 PCR Not Detected (NotDetected); Respiratory Syncytial VirusPCR Not Detected (NotDetected); Rhinovirus/Enterovirus PCR Not Detected (NotDetected)
--- NOTE | 2022-02-15 13:31 | Electrocardiogram Report ---
Test Reason : Blood Pressure : / mmHG Vent. Rate : 070 BPM Atrial Rate : 070 BPM P-R Int : 142 ms QRS Dur : 076 ms QT Int : 410 ms P-R-T Axes : 048 017 061 degrees QTc Int : 442 ms Poor data quality, interpretation may be adversely affected Normal sinus rhythm Normal ECG When compared with ECG of 26-MAY-2021 13:58, No significant change was found Confirmed by Serjio Freire ([id number]) on 02/15/2022 1:31:01 PM Referred By: REFERRED SELF Confirmed By:Serjio Freire
[2022-02-15] MEDS ORDERED: OPTIRAY 320 500ml IV ONE (13:41)
[2022-02-15] MEDS: SODIUM CHLORIDE 0.9% 1000ML 1,000 ML IV SCH ×2 (13:44→19:18)
[2022-02-15] MEDS ORDERED: ALBUT/IPRATROP 3MG/0.5MG NEB 3 ML VIAL NEB STA (13:49)
--- NOTE | 2022-02-15 13:56 | CT Scan Report ---
CT angio chest PE protocol CT DOSE: 605.12 mGy.cm HISTORY: 86 years-old Female with PE. Acute shortness of breath TECHNIQUE: Multiple CTA images of the chest were obtained after the intravenous administration of 85 ml Optiray. Coronal and sagittal MIPS were obtained from the axial data set and were submitted for r [employer]. All measurements were obtained according to NASCET criteria. A dose lowering technique was ut ilized adhering to the principles of ALARA. COMPARISON: CTA chest 05/26/2021, 10/21/2020, 06/16/2018 FINDINGS: CTA: The heart is mildly enlarged. There is no pericardial effusion. Extensive coronary artery calcificati ons. Atherosclerosis of the thoracic aorta without aneurysm or dissection. There is patency of the im aged great vessels. Unremarkable pulmonary artery. The segmental and subsegmental pulmonary arterial branches are suboptimally opacified and therefore not well visualized. CT CHEST: No thyroid nodule. Mild mediastinal and hilar adenopathy redemonstrated. Right hilar lymph nodes tamie ure up to 1.2 cm. Subcarinal lymph nodes measure up to 1.1 cm. Trace pleural effusions. No pneumothor ax. Bronchial wall thickening with right greater than left bibasilar mucous plugging. Innumerable ana trilobular/tree-in-bud micronodules within a multilobar distribution bilaterally. Patchy bilateral ai rspace opacities are most pronounced within the right lung base. There is improved aeration of the up per lung zones compared to the prior study. No acute process of the imaged upper abdomen. 2.1 cm right renal cyst. Cirrhotic liver. Cholecystecto my. Calcified granulomata of the spleen. Degenerative changes of the shoulders and spine. IMPRESSION: 1. No pulmonary emboli identified. 2. Bronchial wall thickening suggestive of bronchitis with right greater left bibasilar mucous pluggi ng. Patchy bilateral airspace opacities are most pronounced in the right lower lobe. Correlate clinic ally to exclude aspiration pneumonitis. 3. Chronic diffuse centrilobular/tree-in-bud micronodules within a multilobar distribution has been p resent dating back to at least 2019 compatible with a chronic infectious or inflammatory pneumonitis. 4. Mild mediastinal and hilar lymphadenopathy, likely reactive. 5. Cirrhosis. ACT 112: Negative or not required by law. The above report was generated using voice recognition software. It may contain grammatical, syntax o r spelling errors. Electronically signed by: Jose Kee M.D. 02/15/2022 1:54 PM
--- NOTE | 2022-02-15 14:04 | Emergency Department Note ---
History of Present Illness General Chief complaint: Shortness of Breath/Dyspnea Time Seen by Provider: 02/15/22 10:37 Source: patient, RN notes reviewed (facility) and old records reviewed Mode of arrival: EMS Limitations: no limitations History of Present Illness Provider complaint: shortness of breath This is an 86-year-old female who presents from a local facility due to concern for persistent shortness of breath and worsening cough despite being treated recently for pneumonia. Patient states she does have a history of asthma/COPD and wears oxygen chronically. She states she typically wears 2 to 3 L/min. She states she was started on antibiotics and has been taking them as prescribed. She feels she has not had any improvement in her cough and still feels short of breath, worse with any exertion. She denies any accompanying chest pain, abdominal pain, vomiting, or diarrhea. Per accompanying paperwork patient was started on doxycycline and prednisone and has been taking those daily. Patient states sputum production is clear and opaque, no hemoptysis. Home Medications Medication Instructions Recorded Confirmed Type Antifungal Powd 2% 1 applic topical BID 02/15/22 02/15/22 History acetaminophen 325 mg tablet 650 mg PO Q4 PRN Fever Or Pain 02/15/22 02/15/22 History (Tylenol) acetaminophen 500 mg tablet 500 mg PO QID 02/15/22 02/15/22 History albuterol sulfate 90 mcg/actuation 2 puff inhalation QID PRN 02/15/22 02/15/22 History aerosol inhaler Shortness Of Breath Or Wheezing allopurinol 100 mg tablet 100 mg PO DAILY 02/15/22 02/15/22 History amlodipine 10 mg tablet 10 mg PO DAILY 02/15/22 02/15/22 History aspirin 81 mg tablet,delayed 81 mg PO DAILY 02/15/22 02/15/22 History release atorvastatin 40 mg tablet 40 mg PO HS 02/15/22 02/15/22 History buspirone 5 mg tablet 5 mg PO AMHS 02/15/22 02/15/22 History calcium carbonate 600 mg-vitamin 1 tab PO DAILY 02/15/22 02/15/22 History D3 10 mcg (400 unit) tablet (Calcium 600 + D(3)) camphor 4 %-methyl salicylate 30 1 applic topical QID 02/15/22 02/15/22 History %-menthol 10 % topical cream (Bengay Ultra Strength) camphor 4 %-methyl salicylate 30 1 applic topical BID 02/15/22 02/15/22 History %-menthol 10 % topical cream (Muscle Rub Ultra-Strength) cetirizine 10 mg tablet 10 mg PO DAILY 02/15/22 02/15/22 History doxycycline hyclate 100 mg tablet 100 mg PO BID 02/15/22 02/15/22 History duloxetine 30 mg capsule,delayed 30 mg PO DAILY 02/15/22 02/15/22 History release duloxetine 60 mg capsule,delayed 60 mg PO DAILY 02/15/22 02/15/22 History release ferrous sulfate 325 mg (65 mg 325 mg PO AMHS 02/15/22 02/15/22 History iron) tablet fluticasone propionate 230 1 puff inhalation AMHS 02/15/22 02/15/22 History mcg-salmeterol 21 mcg/actuation HFA inhaler (Advair HFA) furosemide 20 mg tablet 20 mg PO DAILY 02/15/22 02/15/22 History gabapentin 100 mg capsule 100 mg PO TID 02/15/22 02/15/22 History guaifenesin 100 mg/5 mL oral 200 mg PO Q4H PRN Cough 02/15/22 02/15/22 History liquid (Siltussin SA) insulin aspart U-100 100 unit/mL 4 unit subcut PC 02/15/22 02/15/22 History subcutaneous solution (Novolog U-100 Insulin aspart) insulin glargine 100 unit/mL (3 10 unit subcut HS 02/15/22 02/15/22 History mL) subcutaneous pen (Lantus Solostar U-100 Insulin) ipratropium 0.5 mg-albuterol 3 mg 3 ml inhalation QID 02/15/22 02/15/22 History (2.5 mg base)/3 mL nebulization soln ipratropium 0.5 mg-albuterol 3 mg 3 ml inhalation QID PRN Shortness 02/15/22 02/15/22 History (2.5 mg base)/3 mL nebulization Of Breath Or Wheezing soln isosorbide mononitrate 60 mg 60 mg PO DAILY 02/15/22 02/15/22 History tablet,extended release 24 hr lidocaine 4 % topical patch 1 patch topical DAILY 02/15/22 02/15/22 History losartan 50 mg tablet 50 mg PO DAILY 02/15/22 02/15/22 History meclizine 25 mg tablet 25 mg PO Q8 PRN .DIZZYNESS 02/15/22 02/15/22 History melatonin 3 mg tablet 3 mg PO HS 02/15/22 02/15/22 History metformin 500 mg tablet 500 mg PO QAM 02/15/22 02/15/22 History metoprolol tartrate 50 mg tablet 50 mg PO AMHS 02/15/22 02/15/22 History mineral oil-isopropyl myristat 1 applic topical BID 02/15/22 02/15/22 History lotion montelukast 10 mg tablet 10 mg PO HS 02/15/22 02/15/22 History nitroglycerin 0.4 mg sublingual 0.4 mg sublingual DIRECTED 02/15/22 02/15/22 History tablet (Nitrostat) omeprazole 40 mg capsule,delayed 40 mg PO DAILY 02/15/22 02/15/22 History release ondansetron HCl 4 mg tablet 4 mg PO Q6H PRN Nausea 02/15/22 02/15/22 History polyethylene glycol 3350 17 gram 17 g PO HS 02/15/22 02/15/22 History oral powder packet vitamin B complex 1 tab PO DAILY 02/15/22 02/15/22 History Allergies Allergy/AdvReac Type Severity Reaction Status Date / Time azelastine Allergy Intermediate elevated bp Verified 02/15/22 17:02 trospium Allergy Intermediate hives Verified 02/15/22 17:02 azithromycin Allergy Mild Rash Verified 02/15/22 17:02 citalopram Allergy Unknown UNKNOWN Verified 02/15/22 17:02 chlorpheniramine AdvReac Intermediate ELEVATED BP Verified 02/15/22 17:02 Corticosteroids AdvReac Intermediate ELEVATED BP Verified 02/15/22 17:02 (Glucocorticoids) fexofenadine AdvReac Intermediate ELEVATED BP Verified 02/15/22 17:02 fluticasone AdvReac Intermediate ELEVATED BP Verified 02/15/22 17:02 hydrocodone AdvReac Intermediate ELEVATED BP Verified 02/15/22 17:02 magnesium salicylate AdvReac Intermediate ELEVATED BP Verified 02/15/22 17:02 salicylates AdvReac Intermediate ELEVATED BP Verified 02/15/22 17:02 lactose AdvReac Verified 02/16/22 11:28 Past Med/Surg History Medical History Acute exacerbation of chronic obstructive pulmonary disease Ambulatory dysfunction Anxiety Anxiety (02/04/11) Arteriosclerotic coronary artery disease (02/04/11) Arthritis Asthma Asthma Breathlessness Carotid stenosis Cerebrovascular disease Chronic diastolic heart failure Cough Degenerative disc disease Diabetic neuropathy Diabetic peripheral neuropathy Diverticulosis (02/04/11) Dyslipidemia GERD (gastroesophageal reflux disease) Hyperlipidemia Hypoxia Morbid obesity with BMI of 45.0-49.9, adult (02/04/11) Multifocal pneumonia Myocardial Infarction OVER 10 YEARS AGO Peripheral edema Pneumonia Pressure sore ON COCCYX (FROM SITTING) Restless leg syndrome Type 2 diabetes mellitus (02/04/11) Unsteady gait when walking Urinary incontinence Venous insufficiency Weakness Surgical History History of anesthesia reaction SLOW TO WAKE UP History of cataract surgery History of colonoscopy History of esophagogastroduodenoscopy (EGD) History of heart artery stent OVER 10 YEARS AGO/1 STENT (FOLLOWS DR. 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 Beliefs That Will Affect Care: None marital status: / marital status details: [email or web address] Current Living Situation: Shelter Current Living Situation Comment: [facility] current occupational status: retired How many Children do You have: 2 Other Information That Helps Us Care for You: No Feels Safe at Home: Yes Safety Concerns: Feels Safe At This Time Assistive Devices: Walker Review of Systems A total of 10 systems reviewed and were otherwise negative All systems reviewed & are unremarkable except as noted in HPI & below Physical Exam Vital Signs Vital Signs - 24 hr 02/15/22 10:23 02/15/22 10:23 02/15/22 10:23 Temperature 36.6 C Temperature Source Oral Pulse Rate 70 Pulse Rhythm Regular Pulse Strength Normal Respiratory Rate 21 Respiratory Effort / Characteristics Non-Labored Non-Labored Respiratory Depth Shallow Normal Respiratory Pattern Regular Blood Pressure 118/65 Blood Pressure Mean 82 Blood Pressure Position Sitting Pulse Oximetry 90 90 Oxygen Delivery Method Nasal Cannula Nasal Cannula Nasal Cannula Oxygen Flow Rate 4 3 3 Sepsis Recent Fever Within 48 Hours No Sepsis New/Unexplained Change in Mental Status No Sepsis Action Taken by Nursing No Action Required Oxygen Flow Rate - Titration 4 Pulse Oximetry Post Tiitration 98 02/15/22 10:30 02/15/22 11:30 02/15/22 12:17 Temperature Temperature Source Pulse Rate 69 69 72 Pulse Rhythm Pulse Strength Respiratory Rate 17 20 24 Respiratory Effort / Characteristics Respiratory Depth Respiratory Pattern Blood Pressure 118/65 118/61 126/66 Blood Pressure Mean 82 80 86 Blood Pressure Position Pulse Oximetry 98 97 98 Oxygen Delivery Method Nasal Cannula Nasal Cannula Nasal Cannula Oxygen Flow Rate 4 4 4 Sepsis Recent Fever Within 48 Hours Sepsis New/Unexplained Change in Mental Status Sepsis Action Taken by Nursing Oxygen Flow Rate - Titration Pulse Oximetry Post Tiitration 02/15/22 12:30 02/15/22 13:00 02/15/22 14:00 Temperature Temperature Source Pulse Rate 73 71 78 Pulse Rhythm Pulse Strength Respiratory Rate 24 24 21 Respiratory Effort / Characteristics Respiratory Depth Respiratory Pattern Blood Pressure 140/60 123/53 L 128/58 L Blood Pressure Mean 86 76 81 Blood Pressure Position Pulse Oximetry 98 98 100 Oxygen Delivery Method Nasal Cannula Nasal Cannula Nasal Cannula Oxygen Flow Rate 4 4 4 Sepsis Recent Fever Within 48 Hours Sepsis New/Unexplained Change in Mental Status Sepsis Action Taken by Nursing Oxygen Flow Rate - Titration Pulse Oximetry Post Tiitration GENERAL: alert, unwell appearing, well nourished, no distress, non-toxic, nasal cannula in place EYE EXAM: normal conjunctiva, PERRL and EOM's grossly intact OROPHARYNX: no exudate, no erythema, lips, buccal mucosa, and tongue normal and mucous membranes are moist NECK: supple, no nuchal rigidity, no adenopathy, non-tender LUNGS: Decreased to auscultation. Normal chest wall mechanics, scattered wheezes and rales, no retractions HEART: no murmurs, S1 normal and S2 normal ABDOMEN: abdomen soft, non-tender, normo-active bowel sounds, no masses, no rebound or guarding. BACK: Back is symmetrical on inspection and there is no deformity, no midline tenderness, no CVA tenderness. SKIN: no rashes and no bruising UPPER EXTREMITIES: upper extremities are grossly normal. FROM, nml pulses b/l. LOWER EXTREMITIES: No pitting edema. FROM, nml pulses b/l. NEURO EXAM: Normal sensorium, cranial nerves II-XII grossly intact, normal speech, no gross weakness of arms, no gross weakness of legs. Gross sensation intact. Course Administered Medications Acetaminophen (Acetaminophen 325 Mg Tab) 650 mg PO Q4H PRN PRN Reason: Moderate Pain Stop: 03/17/22 17:27 Last Admin: 02/15/22 21:08 Dose: 650 mg Documented By: WILLIAM Albuterol (Albut/Ipratrop 3mg/0.5mg Neb 3 Ml Vial) 3 ml NEB Q4R [facility]; Protocol Stop: 03/17/22 17:27 Last Admin: 02/16/22 15:57 Dose: 3 ml Documented By: Admin: 02/16/22 11:13 Dose: 3 ml Documented By: Admin: 02/16/22 07:34 Dose: 3 ml Documented By: Admin: 02/16/22 03:27 Dose: 3 ml Documented By: Admin: 02/15/22 23:31 Dose: 3 ml Documented By: Admin: 02/15/22 20:02 Dose: 3 ml Documented By: Admin: 02/15/22 18:02 Dose: Not Given Documented By: SARA Allopurinol (Allopurinol 100 Mg Tab) 100 mg PO DAILY [facility] Stop: 03/18/22 08:59 Last Admin: 02/16/22 08:08 Dose: 100 mg Documented By: LEN Amlodipine Besylate (Amlodipine Besylate 5 Mg Tab) 10 mg PO DAILY [facility] Stop: 03/18/22 08:59 Last Admin: 02/16/22 08:09 Dose: 10 mg Documented By: LEN Aspirin (Aspirin 81 Mg Ectab) 81 mg PO DAILY [facility] Stop: 03/18/22 08:59 Last Admin: 02/16/22 08:10 Dose: 81 mg Documented By: LEN Atorvastatin Calcium (Atorvastatin 40 Mg Tab) 40 mg PO HS [facility] Stop: 03/17/22 20:59 Last Admin: 02/15/22 21:12 Dose: 40 mg Documented By: WILLIAM Buspirone HCl (Buspirone 5 Mg Tab) 5 mg PO [facility] Stop: 03/17/22 20:59 Last Admin: 02/16/22 08:09 Dose: 5 mg Documented By: Admin: 02/15/22 21:13 Dose: 5 mg Documented By: WILLIAM Duloxetine HCl (Duloxetine Hcl 30 Mg Cap) 30 mg PO DAILY [facility] Stop: 03/18/22 08:59 Last Admin: 02/16/22 08:09 Dose: 30 mg Documented By: LEN Duloxetine HCl (Duloxetine Hcl 60 Mg Cap) 60 mg PO DAILY [facility] Stop: 03/18/22 08:59 Last Admin: 02/16/22 08:11 Dose: 60 mg Documented By: LEN Ferrous Sulfate (Ferrous Sulfate 325 Mg Tab) 325 mg PO BIDM [facility] Stop: 03/18/22 07:59 Last Admin: 02/16/22 16:02 Dose: Not Given Documented By: Admin: 02/16/22 08:08 Dose: 325 mg Documented By: LEN Fluticasone/Vilanterol (Fluticasone/Vilanterol 200/25mcg 14 Puffs/Inhaler) 1 puffs INH DAILY [facility] Stop: 03/18/22 08:59 Last Admin: 02/16/22 08:08 Dose: 1 puffs Documented By: LEN Furosemide (Furosemide 20 Mg Tab) 20 mg PO DAILY [facility] Stop: 03/18/22 08:59 Last Admin: 02/16/22 08:09 Dose: 20 mg Documented By: LEN Gabapentin (Gabapentin 100 Mg Cap) 100 mg PO TID [facility] Stop: 03/17/22 20:59 Last Admin: 02/16/22 13:38 Dose: 100 mg Documented By: Admin: 02/16/22 08:11 Dose: 100 mg Documented By: Admin: 02/15/22 21:09 Dose: 100 mg Documented By: WILLIAM Guaifenesin (Guaifenesin 600 Mg Tabcr) 1,200 mg PO Q12 [facility] Stop: 03/17/22 20:59 Last Admin: 02/16/22 08:09 Dose: 1,200 mg Documented By: Admin: 02/15/22 21:09 Dose: 1,200 mg Documented By: WILLIAM Heparin Sodium (Porcine) (Heparin Sod 5,000 Unit/0.5 Ml Vial) 5,000 units SQ Q12 [facility] Stop: 03/17/22 20:59 Last Admin: 02/16/22 08:09 Dose: 5,000 units Documented By: Admin: 02/15/22 21:11 Dose: 5,000 units Documented By: WILLIAM Cefepime HCl 2,000 mg/ Syringe 20 mls @ 5 mls/min IV Q12H [facility]; Protocol Stop: 02/22/22 19:59 Last Admin: 02/16/22 08:09 Dose: 5 mls/min Documented By: Admin: 02/15/22 20:13 Dose: 5 mls/min Documented By: WILLIAM Metronidazole (Flagyl) 500 mg in 100 mls @ 100 mls/hr IV Q8H [facility]; Protocol Stop: 02/22/22 21:59 Last Infusion: 02/16/22 15:02 Dose: 0 mls/hr Documented By: Admin: 02/16/22 13:38 Dose: 100 mls/hr Documented By: Infusion: 02/16/22 06:25 Dose: 0 mls/hr Documented By: Admin: 02/16/22 05:25 Dose: 100 mls/hr Documented By: Infusion: 02/15/22 22:16 Dose: 0 mls/hr Documented By: Admin: 02/15/22 21:16 Dose: 100 mls/hr Documented By: WILLIAM Insulin Aspart (Insulin Aspart Per Unit) 0 units SC ACHS [facility] Stop: 03/17/22 17:27 Last Admin: 02/16/22 17:11 Dose: Not Given Documented By: Admin: 02/16/22 12:50 Dose: 2 units Documented By: LEN Co-signed By: QUIANA Admin: 02/16/22 09:09 Dose: Not Given Documented By: Admin: 02/15/22 21:15 Dose: 3 units Documented By: WILLIAM Co-signed By: HUGO Admin: 02/15/22 19:17 Dose: Not Given Documented By: JOLANTA Isosorbide Mononitrate (Isosorbide Bertie Extended Rel 60 Mg Tabcr) 60 mg PO DAILY [facility] Stop: 03/18/22 08:59 Last Admin: 02/16/22 08:08 Dose: 60 mg Documented By: LEN Lidocaine (Lidocaine 5% 1 Patch) 1 patch TD QAM [facility] Stop: 03/18/22 08:59 Last Admin: 02/16/22 08:11 Dose: Not Given Documented By: LEN Losartan Potassium (Losartan Potassium 50 Mg Tab) 50 mg PO DAILY [facility] Stop: 03/18/22 08:59 Last Admin: 02/16/22 08:09 Dose: 50 mg Documented By: LEN Melatonin (Melatonin 3 Mg Tab) 3 mg PO [facility] Stop: 03/17/22 20:59 Last Admin: 02/15/22 21:11 Dose: 3 mg Documented By: WILLIAM Metoprolol Tartrate (Metoprolol Tartrate 50 Mg Tab) 50 mg PO [facility] Stop: 03/17/22 20:59 Last Admin: 02/16/22 08:09 Dose: 50 mg Documented By: Admin: 02/15/22 21:10 Dose: 50 mg Documented By: WILLIAM Miconazole Nitrate (Miconazole Nitrate Powder 43 Gm) 1 appln TOP BID [facility] Stop: 03/17/22 20:59 Last Admin: 02/16/22 08:12 Dose: Not Given Documented By: Admin: 02/15/22 21:11 Dose: 1 appln Documented By: WILLIAM Montelukast Sodium (Montelukast Sodium 10 Mg Tablet) 10 mg PO [facility] Stop: 03/17/22 20:59 Last Admin: 02/15/22 21:12 Dose: 10 mg Documented By: WILLIAM Ondansetron HCl (Ondansetron Inj 2 Mg/Ml 2 Ml Vial) 4 mg IV Q4H PRN PRN Reason: Nausea And Vomiting Stop: 03/17/22 17:27 Last Admin: 02/16/22 12:14 Dose: 4 mg Documented By: LEN Pantoprazole Sodium (Pantoprazole 40 Mg Tab) 40 mg PO DAILY [facility] Stop: 03/18/22 08:59 Last Admin: 02/16/22 08:08 Dose: 40 mg Documented By: LEN Polyethylene Glycol (Polyethylene (Miralax) 17 Gm Pack) 17 gm PO [facility] Stop: 03/17/22 20:59 Last Admin: 02/15/22 21:13 Dose: 17 gm Documented By: WILLIAM Vitamin B Complex (Vitamin B Complex Tab) 1 tab PO DAILY@1200 [facility] Stop: 03/18/22 11:59 Last Admin: 02/16/22 11:45 Dose: 1 tab Documented By: LEN Discontinued Medications Albuterol (Albut/Ipratrop 3mg/0.5mg Neb 3 Ml Vial) 3 ml NEB NOW STA; Protocol Stop: 02/15/22 13:50 Last Admin: 02/15/22 14:23 Dose: 3 ml Documented By: MARCY Hydrocodone Bit/Homatropine Methylb (Hydrocodone/Homatropine Syrup 5mg/1.5mg 5ml Udp) 5 ml PO Q6H PRN PRN Reason: Cough Stop: 03/01/22 17:27 Last Admin: 02/15/22 21:08 Dose: 5 ml Documented By: WILLIAM Sodium Chloride (Nss 1000ml) 1,000 mls @ 250 mls/hr IV .Q4H [facility] Stop: 03/17/22 13:14 Last Admin: 02/15/22 19:18 Dose: Not Given Documented By: Infusion: 02/15/22 19:14 Dose: 0 mls/hr Documented By: Admin: 02/15/22 13:44 Dose: 250 mls/hr Documented By: CHINO Levofloxacin/Dextrose (Levaquin/D5w) 750 mg in 150 mls @ 100 mls/hr IV NOW STA Stop: 02/15/22 15:40 Last Infusion: 02/15/22 15:57 Dose: 0 mls/hr Documented By: Admin: 02/15/22 14:23 Dose: 100 mls/hr Documented By: MARCY Insulin Glargine (Lantus Per Unit Charge) 10 units SQ HS [facility] Stop: 03/17/22 20:59 Last Admin: 02/15/22 21:16 Dose: 10 units Documented By: WILLIAM Co-signed By: HUGO Ioversol (Optiray 320 500ml) 85 ml IV ONCE ONE Stop: 02/15/22 13:42 Last Admin: 02/15/22 13:42 Dose: 85 ml Documented By: ISMA Menthol (Cough Drop (Sugar Free) Mj 24 Mj/1 Box) Confirm Administered Dose 24 mj BUCCAL .STK-MED ONE Stop: 02/16/22 02:08 Last Admin: 02/16/22 02:10 Dose: 24 mj Documented By: WILLIAM Metronidazole (Metronidazole 500 Mg Tab) 500 mg PO NOW STA Stop: 02/15/22 14:41 Last Admin: 02/15/22 14:55 Dose: 500 mg Documented By: MARCY Medical Decision Making Differential Diagnosis Differential diagnoses includes but is not limited to pneumonia, bronchitis, COPD/Asthma exacerbation, pneumothorax, pulmonary embolism, congestive heart failure, acute coronary syndrome Medical Records Attestation: I reviewed the patient's medical records. Home Medications Current Medication List: was personally reviewed by me Laboratory Data Attestation: I reviewed the patient's lab results. Result diagrams: 02/16/22 05:29 02/16/22 05:29 Lab Results 02/15/22 02/15/22 02/15/22 Range/Units 10:17 10:17 10:17 WBC 20.31 H (4.8-10.8) K/ul RBC 3.45 L (3.93-5.22) M/uL Hgb 10.7 L (12.0-16.0) g/dl Hct 33.8 L (34.1-44.9) % MCV 98.0 (80.0-100.0) fL MCH 31.0 (25.0-34.0) pg MCHC 31.7 L (32.0-36.0) g/dL RDW Std Deviation 49.8 H (36.4-46.3) fL RDW Coeff of Rakesh 13.9 (11.5-14.5) % Plt Count 228 (130-400) K/uL MPV 11.3 (9.4-12.3) fL Immature Gran % (Auto) 1.2 % Neut % (Auto) 84.2 % Lymph % (Auto) 9.3 % Bertie % (Auto) 5.2 % Eos % (Auto) 0.0 % Baso % (Auto) 0.1 % Neut # (Auto) 17.12 H (1.4-6.5) K/uL Lymph # (Auto) 1.88 (1.2-3.4) K/uL Bertie # (Auto) 1.05 H (0.24-0.82) K/uL Eos # (Auto) 0.00 (0-0.50) K/uL Baso # (Auto) 0.02 (0-0.2) K/uL Immature Gran # (Auto) 0.24 H (0.00-0.02) K/uL VBG pH (7.36-7.41) VBG pCO2 (38-50) mmHg VBG pO2 mmHg VBG HCO3 mmol/L VBG O2 Saturation % VBG Base Excess mEq/L Sodium 145 (136-145) mmol/L Potassium 4.1 (3.5-5.1) mmol/L Chloride 104 (98-107) mmol/L Carbon Dioxide 37 H (21-32) mmol/L Anion Gap 4 (3-11) BUN 37 H (6-23) mg/dl Creatinine 0.86 (0.6-1.2) mg/dl Est Cr Clr Drug Dosing 45.3 ml/min Est GFR ( Amer) 71.9 ml/min Est GFR (Non-Af Amer) 62.0 ml/min BUN/Creatinine Ratio 43.0 H (10-20) Glucose 185 H (70-99(Fasting)) mg/dl Lactate (0.4-2.0) mmol/L Calcium 9.8 (8.5-10.1) mg/dl Magnesium 1.7 (1.7-2.4) mg/dl Total Bilirubin 0.4 (0.2-1.0) mg/dl AST 12 L (13-39) U/L ALT 12 (7-52) U/L Alkaline Phosphatase 75 (34-104) U/L Troponin I High Sens 8.4 (0-14) pg/ml B-Natriuretic Peptide (0-100) pg/ml Total Protein 6.7 (6.0-8.3) gm/dl Albumin 3.1 L (3.4-5.0) gm/dl Globulin 3.6 (2.5-4.0) gm/dl Albumin/Globulin Ratio 0.9 (0.9-2) Lipase 22 (11-82) U/L Procalcitonin (0-0.5) ng/ml TSH 0.504 (0.300-4.500) uIu/ml Adenovirus (PCR) (NotDetected) B. pertussis DNA (PCR) (NotDetected) B.parapertussis DNA PCR (NotDetected) C. pneumoniae DNA (PCR) (NotDetected) Coronavirus OC43 (PCR) (NotDetected) Coronavirus HKU1 (PCR) (NotDetected) Coronavirus 229E (PCR) (NotDetected) SARS-CoV-2 (PCR) (NotDetected) Coronavirus NL63 (PCR) (NotDetected) Human Metapneumovir PCR (NotDetected) Influenza Type A (PCR) (NotDetected) Influenza Type B (PCR) (NotDetected) M. pneumoniae (PCR) (NotDetected) Parainfluenza 1 (PCR) (NotDetected) Parainfluenza 2 (PCR) (NotDetected) Parainfluenza 3 (PCR) (NotDetected) Parainfluenza 4 (PCR) (NotDetected) RSV (PCR) (NotDetected) Entero/Rhino (PCR) (NotDetected) 02/15/22 02/15/22 02/15/22 Range/Units 10:17 10:17 11:17 WBC (4.8-10.8) K/ul RBC (3.93-5.22) M/uL Hgb (12.0-16.0) g/dl Hct (34.1-44.9) % MCV (80.0-100.0) fL MCH (25.0-34.0) pg MCHC (32.0-36.0) g/dL RDW Std Deviation (36.4-46.3) fL RDW Coeff of Rakesh (11.5-14.5) % Plt Count (130-400) K/uL MPV (9.4-12.3) fL Immature Gran % (Auto) % Neut % (Auto) % Lymph % (Auto) % Bertie % (Auto) % Eos % (Auto) % Baso % (Auto) % Neut # (Auto) (1.4-6.5) K/uL Lymph # (Auto) (1.2-3.4) K/uL Bertie # (Auto) (0.24-0.82) K/uL Eos # (Auto) (0-0.50) K/uL Baso # (Auto) (0-0.2) K/uL Immature Gran # (Auto) (0.00-0.02) K/uL VBG pH 7.41 (7.36-7.41) VBG pCO2 64 H (38-50) mmHg VBG pO2 34 mmHg VBG HCO3 41 mmol/L VBG O2 Saturation 60.6 % VBG Base Excess 13.0 mEq/L Sodium (136-145) mmol/L Potassium (3.5-5.1) mmol/L Chloride (98-107) mmol/L Carbon Dioxide (21-32) mmol/L Anion Gap (3-11) BUN (6-23) mg/dl Creatinine (0.6-1.2) mg/dl Est Cr Clr Drug Dosing ml/min Est GFR ( Amer) ml/min Est GFR (Non-Af Amer) ml/min BUN/Creatinine Ratio (10-20) Glucose (70-99(Fasting)) mg/dl Lactate (0.4-2.0) mmol/L Calcium (8.5-10.1) mg/dl Magnesium (1.7-2.4) mg/dl Total Bilirubin (0.2-1.0) mg/dl AST (13-39) U/L ALT (7-52) U/L Alkaline Phosphatase (34-104) U/L Troponin I High Sens (0-14) pg/ml B-Natriuretic Peptide (0-100) pg/ml Total Protein (6.0-8.3) gm/dl Albumin (3.4-5.0) gm/dl Globulin (2.5-4.0) gm/dl Albumin/Globulin Ratio (0.9-2) Lipase (11-82) U/L Procalcitonin 0.09 (0-0.5) ng/ml TSH (0.300-4.500) uIu/ml Adenovirus (PCR) Not Detected (NotDetected) B. pertussis DNA (PCR) Not Detected (NotDetected) B.parapertussis DNA PCR Not Detected (NotDetected) C. pneumoniae DNA (PCR) Not Detected (NotDetected) Coronavirus OC43 (PCR) Not Detected (NotDetected) Coronavirus HKU1 (PCR) Not Detected (NotDetected) Coronavirus 229E (PCR) Not Detected (NotDetected) SARS-CoV-2 (PCR) Not Detected (NotDetected) Coronavirus NL63 (PCR) Not Detected (NotDetected) Human Metapneumovir PCR Not Detected (NotDetected) Influenza Type A (PCR) Not Detected (NotDetected) Influenza Type B (PCR) Not Detected (NotDetected) M. pneumoniae (PCR) Not Detected (NotDetected) Parainfluenza 1 (PCR) Not Detected (NotDetected) Parainfluenza 2 (PCR) Not Detected (NotDetected) Parainfluenza 3 (PCR) Not Detected (NotDetected) Parainfluenza 4 (PCR) Not Detected (NotDetected) RSV (PCR) Not Detected (NotDetected) Entero/Rhino (PCR) Not Detected (NotDetected) 02/15/22 02/15/22 Range/Units 11:47 14:26 WBC (4.8-10.8) K/ul RBC (3.93-5.22) M/uL Hgb (12.0-16.0) g/dl Hct (34.1-44.9) % MCV (80.0-100.0) fL MCH (25.0-34.0) pg MCHC (32.0-36.0) g/dL RDW Std Deviation (36.4-46.3) fL RDW Coeff of Rakesh (11.5-14.5) % Plt Count (130-400) K/uL MPV (9.4-12.3) fL Immature Gran % (Auto) % Neut % (Auto) % Lymph % (Auto) % Bertie % (Auto) % Eos % (Auto) % Baso % (Auto) % Neut # (Auto) (1.4-6.5) K/uL Lymph # (Auto) (1.2-3.4) K/uL Bertie # (Auto) (0.24-0.82) K/uL Eos # (Auto) (0-0.50) K/uL Baso # (Auto) (0-0.2) K/uL Immature Gran # (Auto) (0.00-0.02) K/uL VBG pH (7.36-7.41) VBG pCO2 (38-50) mmHg VBG pO2 mmHg VBG HCO3 mmol/L VBG O2 Saturation % VBG Base Excess mEq/L Sodium (136-145) mmol/L Potassium (3.5-5.1) mmol/L Chloride (98-107) mmol/L Carbon Dioxide (21-32) mmol/L Anion Gap (3-11) BUN (6-23) mg/dl Creatinine (0.6-1.2) mg/dl Est Cr Clr Drug Dosing ml/min Est GFR ( Amer) ml/min Est GFR (Non-Af Amer) ml/min BUN/Creatinine Ratio (10-20) Glucose (70-99(Fasting)) mg/dl Lactate 1.9 (0.4-2.0) mmol/L Calcium (8.5-10.1) mg/dl Magnesium (1.7-2.4) mg/dl Total Bilirubin (0.2-1.0) mg/dl AST (13-39) U/L ALT (7-52) U/L Alkaline Phosphatase (34-104) U/L Troponin I High Sens (0-14) pg/ml B-Natriuretic Peptide 56 (0-100) pg/ml Total Protein (6.0-8.3) gm/dl Albumin (3.4-5.0) gm/dl Globulin (2.5-4.0) gm/dl Albumin/Globulin Ratio (0.9-2) Lipase (11-82) U/L Procalcitonin (0-0.5) ng/ml TSH (0.300-4.500) uIu/ml Adenovirus (PCR) (NotDetected) B. pertussis DNA (PCR) (NotDetected) B.parapertussis DNA PCR (NotDetected) C. pneumoniae DNA (PCR) (NotDetected) Coronavirus OC43 (PCR) (NotDetected) Coronavirus HKU1 (PCR) (NotDetected) Coronavirus 229E (PCR) (NotDetected) SARS-CoV-2 (PCR) (NotDetected) Coronavirus NL63 (PCR) (NotDetected) Human Metapneumovir PCR (NotDetected) Influenza Type A (PCR) (NotDetected) Influenza Type B (PCR) (NotDetected) M. pneumoniae (PCR) (NotDetected) Parainfluenza 1 (PCR) (NotDetected) Parainfluenza 2 (PCR) (NotDetected) Parainfluenza 3 (PCR) (NotDetected) Parainfluenza 4 (PCR) (NotDetected) RSV (PCR) (NotDetected) Entero/Rhino (PCR) (NotDetected) Imaging Data Radiologist's Impression: Chest CTA 02/15/22 12:35 CT angio chest PE protocol CT DOSE: 605.12 mGy.cm HISTORY: 86 years-old Female with PE. Acute shortness of breath TECHNIQUE: Multiple CTA images of the chest were obtained after the intravenous administration of 85 ml Optiray. Coronal and sagittal MIPS were obtained from the axial data set and were submitted for review. All measurements were obtained according to NASCET criteria. A dose lowering technique was utilized adhering to the principles of ALARA. COMPARISON: CTA chest 05/26/2021, 10/21/2020, 06/16/2018 FINDINGS: CTA: The heart is mildly enlarged. There is no pericardial effusion. Extensive coronary artery calcifications. Atherosclerosis of the thoracic aorta without an eurysm or dissection. There is patency of the imaged great vessels. Unremarkable pulmonary artery. The segmental and subsegmental pulmonary arterial branches are suboptimally opacified and therefore not well visualized. CT CHEST: No thyroid nodule. Mild mediastinal and hilar adenopathy redemonstrated. Right hilar lymph nodes measure up to 1.2 cm. Subcarinal lymph nodes measure up to 1.1 cm. Trace pleural effusions. No pneumothorax. Bronchial wall thickening with right greater than left bibasilar mucous plugging. Innumerable centrilobular/tree-in-bud micronodules within a multilobar distribution bilaterally. Patchy bilateral airspace opacities are most pronounced within the right lung base. There is improved aeration of the upper lung zones compared to the prior study. No acute process of the imaged upper abdomen. 2.1 cm right renal cyst. Cirrhotic liver. Cholecystectomy. Calcified granulomata of the spleen. Degenerative changes of the shoulders and spine. IMPRESSION: 1. No pulmonary emboli identified. 2. Bronchial wall thickening suggestive of bronchitis with right greater left bibasilar mucous plugging. Patchy bilateral airspace opacities are most pronounced in the right lower lobe. Correlate clinically to exclude aspiration pneumonitis. 3. Chronic diffuse centrilobular/tree-in-bud micronodules within a multilobar distribution has been present dating back to at least 2018 compatible with a chronic infectious or inflammatory pneumonitis. 4. Mild mediastinal and hilar lymphadenopathy, likely reactive. 5. Cirrhosis. ACT 112: Negative or not required by law. The above report was generated using voice recognition software. It may contain grammatical, syntax or spelling errors. Electronically signed by: Jose Kee M.D. 02/15/2022 1:54 PM ECG Data Attestation: I personally reviewed and interpreted this ECG as follows: Indication: + SOB/dyspnea Rate (beats per minute): 70 Rhythm: + normal sinus ECG Intervals/blocks: + Normal QRS and + Normal QT ECG [place]: + Normal ECG ST segments: + Nonspecific ST abnormalities MDM Narrative An order was placed for continuous cardiac monitoring. The monitor shows a rate of _82_ with _normal sinus_ rhythm. This is an 86-year-old female presents due to persistent respiratory symptoms after outpatient treatment for pneumonia. Patient with increased mucus production and increased oxygen requirements here. Patient sent for CT imaging as a precaution. Patient does have known history of COPD. Additional IV fluids added. Procalcitonin negative, however significant leukocytosis. Unclear how m uch of this is worsening infection versus recent steroid taper that was also added. Blood cultures added as a precaution. Patient did report feeling improved with DuoNeb treatment here and was maintained on 4 L/min via nasal cannula. Patient verbalized understanding of results and plan. Case discussed with hospitalist for additional evaluation and management. Impression & Plan Dyspnea, COPD (chronic obstructive pulmonary disease), Pneumonia, Failure of outpatient treatment Discharge Plan Visit Data Chief Complaint: Shortness of Breath/Dyspnea ED Provider: Allegra Mercado Discharge Problem: Dyspnea, COPD (chronic obstructive pulmonary disease), Pneumonia, Failure of outpatient treatment Patient Disposition: Admitted As Inpatient Discharge Instructions Interventions: ED Discharge Assessment Last Done: 02/15/22 16:54
[2022-02-15] MEDS ORDERED: levoFLOXacin/D5W 750 MG/150 ML BAG IV STA (14:11)
[2022-02-15] MEDS ORDERED: metroNIDAZOLE 500 MG TAB PO STA (14:40)
--- NOTE | 2022-02-15 14:51 | History & Physical Report ---
Date of Service February 15, 2022 Assessment & Plan (1) Pneumonia: (2) Hypoxemia: (3) Dyspnea: (4) Failure of outpatient treatment: Plan: - Admit to tele - Sputum culture, mucinex, duonebs QID and Q2H prn, hycodan cough syrup q6h prn for persistent cough - Wean O2 prn - currently requiring 4 L and at baseline wears 2-2.5 L - Influenza swab covid and RSV neg, check MRSA swab - No need for steroids at this time, no wheeze on exam. Monitor - Check legionella Ag urine - WBC at time of admission = 20.13, neuts 17.12 likely secondary to infection but also reactive from recent prednisone dosing as outpatient - BCx x 2, follow - Afebrile here - Lactic acid 1.9, Procalcitonin 0.09 - CXR reviewed as above showing - Continue antibiotic therapy with cefepime and flagyl IV, received dose of levaquin and flagyl in the ER (5) DM II (diabetes mellitus, type II), controlled: Plan: - Will check A1C with am labs, last was 7.4 in spring 2021 - ISS with [employer] achs - Consult glycemic pharmacy for assistance with recent steroid use DVT PPx: - kurtis, troys CODE: DNR/DNI Dispo: From [facility], likely to remain in the hospital x 1-2 days History of Present Illness Chief Complaint: Shortness of breath Primary Care Provider: [facility] This is an 86 yo F from [facility] with PMhx of moderate persistent asthma, CAD, DM type II, CKD, anemia of chronic disease who presented with worsening shortness of breath, wheezing, cough, chest congestion last week with chills fever and body aches. [facility] and was found to have desaturation to the mid 80s which improved with increase of oxygen from 2 to 4 L. At baseline she has been on supplemental O2 of 2-2.5 L for about the past year. In outpatient clinic, she was negative for RSV, COVID and influenza A and B. Chest x-ray initially showed no active disease. She was given Solu-Medrol with some improvement over the next day and then began to have worsening symptoms. Repeat chest x-ray showed possible early bilateral pneumonia and she was started on doxycycline 100 mg BID and prednisone taper. Upon follow-up today with PCP, patient continued to be lethargic with dyspnea and required oxygen titration up to 4 L due to hypoxia. Pt reports having persistent cough with expectorated sputum which is green-yellow in color. She denies hemoptysis. Pt notes feeling like she can just not cough it out. Her energy level is very low compared to normal. Pt denies issues with chewing/swallowing food, and denies recent episodes of vomiting. Normally she is on an easy to chew diet at facility. Pt denies any other acute complaints. She admits to having family who smoked but she never smoked herself. Allergies Allergy/AdvReac Type Severity Reaction Status Date / Time azelastine Allergy Intermediate elevated bp Verified 02/15/22 17:02 trospium Allergy Intermediate hives Verified 02/15/22 17:02 azithromycin Allergy Mild Rash Verified 02/15/22 17:02 citalopram Allergy Unknown UNKNOWN Verified 02/15/22 17:02 chlorpheniramine AdvReac Intermediate ELEVATED BP Verified 02/15/22 17:02 Corticosteroids AdvReac Intermediate ELEVATED BP Verified 02/15/22 17:02 (Glucocorticoids) fexofenadine AdvReac Intermediate ELEVATED BP Verified 02/15/22 17:02 fluticasone AdvReac Intermediate ELEVATED BP Verified 02/15/22 17:02 hydrocodone AdvReac Intermediate ELEVATED BP Verified 02/15/22 17:02 magnesium salicylate AdvReac Intermediate ELEVATED BP Verified 02/15/22 17:02 salicylates AdvReac Intermediate ELEVATED BP Verified 02/15/22 17:02 Home Medications Medication Instructions Recorded Confirmed Type Antifungal Powd 2% 1 applic topical BID 02/15/22 02/15/22 History acetaminophen 325 mg tablet 650 mg PO Q4 PRN Fever Or Pain 02/15/22 02/15/22 History (Tylenol) acetaminophen 500 mg tablet 500 mg PO QID 02/15/22 02/15/22 History albuterol sulfate 90 mcg/actuation 2 puff inhalation QID PRN 02/15/22 02/15/22 History aerosol inhaler Shortness Of Breath Or Wheezing allopurinol 100 mg tablet 100 mg PO DAILY 02/15/22 02/15/22 History amlodipine 10 mg tablet 10 mg PO DAILY 02/15/22 02/15/22 History aspirin 81 mg tablet,delayed 81 mg PO DAILY 02/15/22 02/15/22 History release atorvastatin 40 mg tablet 40 mg PO HS 02/15/22 02/15/22 History buspirone 5 mg tablet 5 mg PO AMHS 02/15/22 02/15/22 History calcium carbonate 600 mg-vitamin 1 tab PO DAILY 02/15/22 02/15/22 History D3 10 mcg (400 unit) tablet (Calcium 600 + D(3)) camphor 4 %-methyl salicylate 30 1 applic topical QID 02/15/22 02/15/22 History %-menthol 10 % topical cream (Bengay Ultra Strength) camphor 4 %-methyl salicylate 30 1 applic topical BID 02/15/22 02/15/22 History %-menthol 10 % topical cream (Muscle Rub Ultra-Strength) cetirizine 10 mg tablet 10 mg PO DAILY 02/15/22 02/15/22 History doxycycline hyclate 100 mg tablet 100 mg PO BID 02/15/22 02/15/22 History duloxetine 30 mg capsule,delayed 30 mg PO DAILY 02/15/22 02/15/22 History release duloxetine 60 mg capsule,delayed 60 mg PO DAILY 02/15/22 02/15/22 History release ferrous sulfate 325 mg (65 mg 325 mg PO AMHS 02/15/22 02/15/22 History iron) tablet fluticasone propionate 230 1 puff inhalation AMHS 02/15/22 02/15/22 History mcg-salmeterol 21 mcg/actuation HFA inhaler (Advair HFA) furosemide 20 mg tablet 20 mg PO DAILY 02/15/22 02/15/22 History gabapentin 100 mg capsule 100 mg PO TID 02/15/22 02/15/22 History guaifenesin 100 mg/5 mL oral 200 mg PO Q4H PRN Cough 02/15/22 02/15/22 History liquid (Siltussin SA) insulin aspart U-100 100 unit/mL 4 unit subcut PC 02/15/22 02/15/22 History subcutaneous solution (Novolog U-100 Insulin aspart) insulin glargine 100 unit/mL (3 10 unit subcut HS 02/15/22 02/15/22 History mL) subcutaneous pen (Lantus Solostar U-100 Insulin) ipratropium 0.5 mg-albuterol 3 mg 3 ml inhalation QID 02/15/22 02/15/22 History (2.5 mg base)/3 mL nebulization soln ipratropium 0.5 mg-albuterol 3 mg 3 ml inhalation QID PRN Shortness 02/15/22 02/15/22 History (2.5 mg base)/3 mL nebulization Of Breath Or Wheezing soln isosorbide mononitrate 60 mg 60 mg PO DAILY 02/15/22 02/15/22 History tablet,extended release 24 hr lidocaine 4 % topical patch 1 patch topical DAILY 02/15/22 02/15/22 History losartan 50 mg tablet 50 mg PO DAILY 02/15/22 02/15/22 History meclizine 25 mg tablet 25 mg PO Q8 PRN .DIZZYNESS 02/15/22 02/15/22 History melatonin 3 mg tablet 3 mg PO HS 02/15/22 02/15/22 History metformin 500 mg tablet 500 mg PO QAM 02/15/22 02/15/22 History metoprolol tartrate 50 mg tablet 50 mg PO AMHS 02/15/22 02/15/22 History mineral oil-isopropyl myristat 1 applic topical BID 02/15/22 02/15/22 History lotion montelukast 10 mg tablet 10 mg PO HS 02/15/22 02/15/22 History nitroglycerin 0.4 mg sublingual 0.4 mg sublingual DIRECTED 02/15/22 02/15/22 History tablet (Nitrostat) omeprazole 40 mg capsule,delayed 40 mg PO DAILY 02/15/22 02/15/22 History release ondansetron HCl 4 mg tablet 4 mg PO Q6H PRN Nausea 02/15/22 02/15/22 History polyethylene glycol 3350 17 gram 17 g PO HS 02/15/22 02/15/22 History oral powder packet vitamin B complex 1 tab PO DAILY 02/15/22 02/15/22 History Past Med/Surg History Medical History Acute exacerbation of chronic obstructive pulmonary disease Ambulatory dysfunction Anxiety Anxiety (02/04/11) Arteriosclerotic coronary artery disease (02/04/11) Arthritis Asthma Asthma Breathlessness Carotid stenosis Cerebrovascular disease Chronic diastolic heart failure Cough Degenerative disc disease Diabetic neuropathy Diabetic peripheral neuropathy Diverticulosis (02/04/11) Dyslipidemia GERD (gastroesophageal reflux disease) Hyperlipidemia Hypoxia Morbid obesity with BMI of 45.0-49.9, adult (02/04/11) Multifocal pneumonia Myocardial Infarction OVER 10 YEARS AGO Peripheral edema Pneumonia Pressure sore ON COCCYX (FROM SITTING) Restless leg syndrome Type 2 diabetes mellitus (02/04/11) Unsteady gait when walking Urinary incontinence Venous insufficiency Weakness Surgical History History of anesthesia reaction SLOW TO WAKE UP History of cataract surgery History of colonoscopy History of esophagogastroduodenoscopy (EGD) History of heart artery stent OVER 10 YEARS AGO/1 STENT (FOLLOWS DR. 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 + body aches, +lethargic Eyes: No diplopia, no worsening or blurred vision ENT: normal hearing, no trouble swallowing Respiratory: + cough, +sputum, + dyspnea on exertion Cardiovascular: No chest pain, tightness or palpitations Abdomen: No pain, nausea, vomiting, diarrhea or constipation Musculoskeletal: No joint pain, calf pain, swelling Neurologic: No weakness, numbness/tingling, or balance problems Psychiatric: No anxiety or depression Skin: No rash or itch Physical Exam Physical Exam: General: awake, alert, no apparent distress, + fatigued Head: Normocephalic, atraumatic ENT: PERRL, EOMI, no pharyngeal exudate, mucous membranes moist Chest: On 4 L via NC with sats 98-99%, coarse wet cough, rales throughout, + expiratory wheeze faint with cough Cardiac: Regular rate and rhythm, no murmur, no JVD, normal peripheral pulses, good capillary refill Abdominal: NABS x 4 quadrants, soft, nondistended, nontender to palpation, no rebound or guarding Extremities: Normal inspection, +nonpitting peripheral edema, no erythema, calfs nontender to palpation Psych: Normal mood and affect Neuro: AAO x 3, strength intact bilaterally and rated 5/5, no motor deficits, speech is clear, no peripheral sensory deficits Results & Data Results & Data ([facility]) Vital Signs (Past 12 Hours) Vital Signs Temp Pulse Resp BP Pulse Ox O2 Del Method O2 Flow Rate 02/15/22 14:00 78 21 128/58 L 100 Nasal Cannula 4 02/15/22 13:00 71 24 123/53 L 98 Nasal Cannula 4 02/15/22 12:30 73 24 140/60 98 Nasal Cannula 4 02/15/22 12:17 72 24 126/66 98 Nasal Cannula 4 02/15/22 11:30 69 20 118/61 97 Nasal Cannula 4 02/15/22 10:30 69 17 118/65 98 Nasal Cannula 4 02/15/22 10:23 90 Nasal Cannula 3 02/15/22 10:23 36.6 C 70 21 118/65 90 Nasal Cannula 3 02/15/22 10:23 Nasal Cannula 4 Laboratory Results 02/15/22 14:26 Aerobic Blood Culture - Pending Blood Anaerobic Blood Culture - Pending 02/15/22 14:26 Aerobic Blood Culture - Pending Blood Anaerobic Blood Culture - Pending 02/15/22 02/15/22 02/15/22 11:47 11:17 10:17 WBC RBC Hgb Hct MCV MCH MCHC RDW Std Deviation RDW Coeff of Rakesh Plt Count MPV Immature Gran % (Auto) Neut % (Auto) Lymph % (Auto) [place] % (Auto) Eos % (Auto) Baso % (Auto) Neut # (Auto) Lymph # (Auto) [place] # (Auto) Eos # (Auto) Baso # (Auto) Immature Gran # (Auto) VBG pH VBG pCO2 VBG pO2 VBG HCO3 VBG O2 Saturation VBG Base Excess Sodium Potassium Chloride Carbon Dioxide Anion Gap BUN Creatinine Est Cr Clr Drug Dosing Est GFR ( Amer) Est GFR (Non-Af Amer) BUN/Creatinine Ratio Glucose Calcium Magnesium Total Bilirubin AST ALT Alkaline Phosphatase Troponin I High Sens B-Natriuretic Peptide 56 Total Protein Albumin Globulin Albumin/Globulin Ratio Lipase Procalcitonin 0.09 TSH Adenovirus (PCR) Not Detected B. pertussis DNA (PCR) Not Detected B.parapertussis DNA PCR Not Detected C. pneumoniae DNA (PCR) Not Detected Coronavirus OC43 (PCR) Not Detected Coronavirus HKU1 (PCR) Not Detected Coronavirus 229E (PCR) Not Detected SARS-CoV-2 (PCR) Not Detected Coronavirus NL63 (PCR) Not Detected Human Metapneumovir PCR Not Detected Influenza Type A (PCR) Not Detected Influenza Type B (PCR) Not Detected M. pneumoniae (PCR) Not Detected Parainfluenza 1 (PCR) Not Detected Parainfluenza 2 (PCR) Not Detected Parainfluenza 3 (PCR) Not Detected Parainfluenza 4 (PCR) Not Detected RSV (PCR) Not Detected Entero/Rhino (PCR) Not Detected 02/15/22 02/15/22 02/15/22 10:17 10:17 10:17 WBC RBC Hgb Hct MCV MCH MCHC RDW Std Deviation RDW Coeff of Rakesh Plt Count MPV Immature Gran % (Auto) Neut % (Auto) Lymph % (Auto) [place] % (Auto) Eos % (Auto) Baso % (Auto) Neut # (Auto) Lymph # (Auto) [place] # (Auto) Eos # (Auto) Baso # (Auto) Immature Gran # (Auto) VBG pH 7.41 VBG pCO2 64 H VBG pO2 34 VBG HCO3 41 VBG O2 Saturation 60.6 VBG Base Excess 13.0 Sodium 145 Potassium 4.1 Chloride 104 Carbon Dioxide 37 H Anion Gap 4 BUN 37 H Creatinine 0.86 Est Cr Clr Drug Dosing 45.3 Est GFR ( Amer) 71.9 Est GFR (Non-Af Amer) 62.0 BUN/Creatinine Ratio 43.0 H Glucose 185 H Calcium 9.8 Magnesium 1.7 Total Bilirubin 0.4 AST 12 L ALT 12 Alkaline Phosphatase 75 Troponin I High Sens 8.4 B-Natriuretic Peptide Total Protein 6.7 Albumin 3.1 L Globulin 3.6 Albumin/Globulin Ratio 0.9 Lipase 22 Procalcitonin TSH 0.504 Adenovirus (PCR) B. pertussis DNA (PCR) B.parapertussis DNA PCR C. pneumoniae DNA (PCR) Coronavirus OC43 (PCR) Coronavirus HKU1 (PCR) Coronavirus 229E (PCR) SARS-CoV-2 (PCR) Coronavirus NL63 (PCR) Human Metapneumovir PCR Influenza Type A (PCR) Influenza Type B (PCR) M. pneumoniae (PCR) Parainfluenza 1 (PCR) Parainfluenza 2 (PCR) Parainfluenza 3 (PCR) Parainfluenza 4 (PCR) RSV (PCR) Entero/Rhino (PCR) 02/15/22 10:17 WBC 20.31 H RBC 3.45 L Hgb 10.7 L Hct 33.8 L MCV 98.0 MCH 31.0 MCHC 31.7 L RDW Std Deviation 49.8 H RDW Coeff of Rakesh 13.9 Plt Count 228 MPV 11.3 Immature Gran % (Auto) 1.2 Neut % (Auto) 84.2 Lymph % (Auto) 9.3 [place] % (Auto) 5.2 Eos % (Auto) 0.0 Baso % (Auto) 0.1 Neut # (Auto) 17.12 H Lymph # (Auto) 1.88 [place] # (Auto) 1.05 H Eos # (Auto) 0.00 Baso # (Auto) 0.02 Immature Gran # (Auto) 0.24 H VBG pH VBG pCO2 VBG pO2 VBG HCO3 VBG O2 Saturation VBG Base Excess Sodium Potassium Chloride Carbon Dioxide Anion Gap BUN Creatinine Est Cr Clr Drug Dosing Est GFR ( Amer) Est GFR (Non-Af Amer) BUN/Creatinine Ratio Glucose Calcium Magnesium Total Bilirubin AST ALT Alkaline Phosphatase Troponin I High Sens B-Natriuretic Peptide Total Protein Albumin Globulin Albumin/Globulin Ratio Lipase Procalcitonin TSH Adenovirus (PCR) B. pertussis DNA (PCR) B.parapertussis DNA PCR C. pneumoniae DNA (PCR) Coronavirus OC43 (PCR) Coronavirus HKU1 (PCR) Coronavirus 229E (PCR) SARS-CoV-2 (PCR) Coronavirus NL63 (PCR) Human Metapneumovir PCR Influenza Type A (PCR) Influenza Type B (PCR) M. pneumoniae (PCR) Parainfluenza 1 (PCR) Parainfluenza 2 (PCR) Parainfluenza 3 (PCR) Parainfluenza 4 (PCR) RSV (PCR) Entero/Rhino (PCR) Diagnostic Findings Chest CTA 02/15/22 12:35 CT angio chest PE protocol CT DOSE: 605.12 mGy.cm HISTORY: 86 years-old Female with PE. Acute shortness of breath TECHNIQUE: Multiple CTA images of the chest were obtained after the intravenous administration of 85 ml Optiray. Coronal and sagittal MIPS were obtained from the axial data set and were submitted for review. All measurements were obtained according to NASCET criteria. A dose lowering technique was utilized adhering to the principles of ALARA. COMPARISON: CTA chest 05/26/2021, 10/21/2020, 06/16/2018 FINDINGS: CTA: The heart is mildly enlarged. There is no pericardial effusion. Extensive coronary artery calcifications. Atherosclerosis of the thoracic aorta without aneurysm or dissection. There is patency of the imaged great vessels. Unremarkable pulmonary artery. The segmental and subsegmental pulmonary arterial branches are suboptimally opacified and therefore not well visualized. CT CHEST: No thyroid nodule. Mild mediastinal and hilar adenopathy redemonstrated. Right hilar lymph nodes measure up to 1.2 cm. Subcarinal lymph nodes measure up to 1.1 cm. Trace pleural effusions. No pneumothorax. Bronchial wall thickening with right greater than left bibasilar mucous plugging. Innumerable centrilobular/tree-in-bud micronodules within a multilobar distribution bilaterally. Patchy bilateral airspace opacities are most pronounced within the right lung base. There is improved aeration of the upper lung zones compared to the prior study. No acute process of the imaged upper abdomen. 2.1 cm right renal cyst. Cirrhotic liver. Cholecystectomy. Calcified granulomata of the spleen. Degenerative changes of the shoulders and spine. IMPRESSION: 1. No pulmonary emboli identified. 2. Bronchial wall thickening suggestive of bronchitis with right greater left bibasilar mucous plugging. Patchy bilateral airspace opacities are most pronounced in the right lower lobe. Correlate clinically to exclude aspiration pneumonitis. 3. Chronic diffuse centrilobular/tree-in-bud micronodules within a multilobar distribution has been present dating back to at least 2018 compatible with a chronic infectious or inflammatory pneumonitis. 4. Mild mediastinal and hilar lymphadenopathy, likely reactive. 5. Cirrhosis. ACT 112: Negative or not required by law. The above report was generated using voice recognition software. It may contain grammatical, syntax or spelling errors. Electronically signed by: Jose Kee M.D. 02/15/2022 1:54 PM ECG Additional Comments: 15-FEB-2022 10:13:17 [facility]-EDSTAT ROUTINE RETRIEVAL Poor data quality, interpretation may be adversely affected Normal sinus rhythm Normal ECG When compared with ECG of 26-MAY-2021 13:58, No significant change was found Confirmed by Serjio Freire ([id number]) on 02/15/2022 1:31:01 PM 25mm/s10mm/[id number] 241CID: [id number] by: REFERRED SELF Confirmed By: Serjio Freire Vent. rate 70 BPM MS interval 142 ms QRS duration 76 ms QT/QTc 410/442 ms Code Status & VTE Plan Code Status DNR/DNI - discussed with the patient at bedside Supervising Physician Co-Signing Physician Notes Pt is a 86 y/o F with hx of DMII, CKDIII, HLD, CAD, HTN, LE edema, Diverticulosis, Liver cirrhosis, anemia, Asthma, Gout, Chronic respiratory failure on 2.5L oxygen, admitted for aspiration pneumonia. Pt has completed prednisone and doxy as outpt PE: Well developed, NC in place, NAD Lungs: fair air entry b/l with lower lobe rales, no wheezing Cardiac: Normal S1/S2, no murmur Abd: ND, NT, soft MSK: b/l LE mild pitting edema Psych: AAOx3, normal affect A/P: Acute on chronic respiratory failure: -2/2 aspiration pneumonia - as baseline pt uses 2.5L of oxygen --- currently on 4L - due to hx of DMII will do cefepime and flagyl - COVID/Flu: neg - Since there is no wheezing no need for prednisone ---- will do albuterol q6hr -sputum culture - CTA chest: Bronchial wall thickening suggestive of bronchitis with right greater left bibasilar mucous plugging. Patchy bilateral airspace opacities are most pronounced in the right lower lobe. Correlate clinically to exclude aspiration pneumonitis -PT/OT - wean off oxygen as pt tolerates Other chronic conditions: plan as above Agree with A/P by Arleen Jorge PA-C (1) Pneumonia Laterality: right Lung location: unspecified part of lung Pneumonia type: due to unspecified organism Qualified Code(s): J18.9 - Pneumonia, unspecified organism
[2022-02-15] MEDS ORDERED: DEXTROSE 50% 50 ML SYRINGE IV PRN (17:28)
[2022-02-15] MEDS ORDERED: GLUCAGON FOR INJ 1 MG VIAL SQ PRN (17:28)
[2022-02-15] MEDS ORDERED: GLUCOSE 40% GEL 15 GM TUBE PO PRN (17:28)
[2022-02-15] MEDS ORDERED: ACETAMINOPHEN 325 MG TAB PO PRN (17:28)
[2022-02-15] MEDS ORDERED: CARBOHYDRATES FOR HYPOGLYCEMIA PO PRN (17:28)
[2022-02-15] MEDS ORDERED: GLUCOSE 10 TAB/TUBE PO PRN (17:28)
[2022-02-15] MEDS ORDERED: HYDROcodone/HOMATROPINE SYRUP 5MG/1.5MG 5ML UDP PO PRN (17:28)
[2022-02-15] MEDS ORDERED: PHARMACY GLYCEMIC MGMT CONSULT PRN (17:28)
[2022-02-15] MEDS: ALBUT/IPRATROP 3MG/0.5MG NEB 3 ML VIAL NEB SCH ×3 (18:02→23:31)
[2022-02-15] MEDS: INSULIN ASPART PER UNIT SC SCH ×2 (19:17→21:15)
[2022-02-15] MEDS: CEFEPIME 2,000 MG in SYRINGE 0 ML IV SCH (20:13)
[2022-02-15] MEDS ORDERED: LANTUS PER UNIT CHARGE SQ SCH (21:00)
[2022-02-15] MEDS ORDERED: MICONAZOLE NITRATE POWDER 43 GM TOP SCH (21:00)
[2022-02-15] MEDS ORDERED: NON-FORMULARY MEDICATION (Doxycycline Hyclate 100 mg Tablet) PO SCH (21:00)
[2022-02-15] MEDS: ACETAMINOPHEN 325 MG TAB PO PRN (21:08)
[2022-02-15] MEDS: GABAPENTIN 100 MG CAP PO SCH (21:09)
[2022-02-15] MEDS: guaiFENesin 600 MG TABCR PO SCH (21:09)
[2022-02-15] MEDS: METOPROLOL TARTRATE 50 MG TAB PO SCH (21:10)
[2022-02-15] MEDS: MELATONIN 3 MG TAB PO SCH (21:11)
[2022-02-15] MEDS: MICONAZOLE NITRATE POWDER 43 GM TOP SCH (21:11)
[2022-02-15] MEDS: HEPARIN SOD 5,000 UNIT/0.5 ML VIAL SQ SCH (21:11)
[2022-02-15] MEDS: ATORVASTATIN 40 MG TAB PO SCH (21:12)
[2022-02-15] MEDS: MONTELUKAST SODIUM 10 MG TABLET PO SCH (21:12)
[2022-02-15] MEDS: POLYETHYLENE (MIRALAX) 17 GM PACK PO SCH (21:13)
[2022-02-15] MEDS: busPIRone 5 MG TAB PO SCH (21:13)
[2022-02-15] MEDS: metroNIDAZOLE 500 MG/100 ML BAG IV SCH (21:16)
[2022-02-16] MEDS ORDERED: COUGH DROP (SUGAR FREE) LOZ 24 LOZ/1 BOX BUCCAL ONE (02:07)
[2022-02-16] MEDS: ALBUT/IPRATROP 3MG/0.5MG NEB 3 ML VIAL NEB SCH ×6 (03:27→22:25)
[2022-02-16] MEDS: metroNIDAZOLE 500 MG/100 ML BAG IV SCH ×3 (05:25→22:55)
[2022-02-16 06:15] LABS: Hematocrit (blood only) 30.3 % (34.1-44.9); Hemoglobin 9.5 g/dl (12.0-16.0); Mean Corpuscular Hemoglobin 30.8 pg (25.0-34.0); Mean Corpuscular Hgb Conc 31.4 g/dL (32.0-36.0); Mean Corpuscular Volume 98.4 fL (80.0-100.0); Platelet Count 159 K/uL (130-400); RDW Coefficient of Variation 13.8 % (11.5-14.5); Red Blood Count 3.08 M/uL (3.93-5.22); White Blood Count 21.06 K/ul (4.8-10.8)
[2022-02-16 06:40] LABS: BUN Creatinine Ratio 36.8 (10-20); Calcium 8.8 mg/dl (8.5-10.1); Creatinine Clr Calc Pharmacy 36.2 ml/min; Est GFR (African American) 55.8 ml/min; Est GFR (Non-African American) 48.2 ml/min; Potassium 3.8 mmol/L (3.5-5.1)
[2022-02-16 07:19] LABS: Estimated Average Glucose 134 mg/dl; Hemoglobin A1C 6.3 % (4.5-5.6)
[2022-02-16] MEDS: allopurinoL 100 MG TAB PO SCH (08:08)
[2022-02-16] MEDS: PANTOprazole 40 MG TAB PO SCH (08:08)
[2022-02-16] MEDS: ISOSORBIDE MONO EXTENDED REL 60 MG TABCR PO SCH (08:08)
[2022-02-16] MEDS: FLUTICASONE/VILANTEROL 200/25MCG 14 PUFFS/INHALER INH SCH (08:08)
[2022-02-16] MEDS: FERROUS SULFATE 325 MG TAB PO SCH ×2 (08:08→16:02)
[2022-02-16] MEDS: LOSARTAN POTASSIUM 50 MG TAB PO SCH (08:09)
[2022-02-16] MEDS: DULoxetine HCL 30 MG CAP PO SCH (08:09)
[2022-02-16] MEDS: CEFEPIME 2,000 MG in SYRINGE 0 ML IV SCH ×2 (08:09→20:27)
[2022-02-16] MEDS: guaiFENesin 600 MG TABCR PO SCH ×2 (08:09→20:29)
[2022-02-16] MEDS: METOPROLOL TARTRATE 50 MG TAB PO SCH ×2 (08:09→20:29)
[2022-02-16] MEDS: HEPARIN SOD 5,000 UNIT/0.5 ML VIAL SQ SCH ×2 (08:09→20:31)
[2022-02-16] MEDS: FUROSEMIDE 20 MG TAB PO SCH (08:09)
[2022-02-16] MEDS: busPIRone 5 MG TAB PO SCH ×2 (08:09→20:30)
[2022-02-16] MEDS: amLODIPine BESYLATE 5 MG TAB PO SCH (08:09)
[2022-02-16] MEDS: ASPIRIN 81 MG ECTAB PO SCH (08:10)
[2022-02-16] MEDS: DULoxetine HCL 60 MG CAP PO SCH (08:11)
[2022-02-16] MEDS: LIDOCAINE 5% 1 PATCH TD SCH (08:11)
[2022-02-16] MEDS: GABAPENTIN 100 MG CAP PO SCH ×3 (08:11→20:28)
[2022-02-16] MEDS: MICONAZOLE NITRATE POWDER 43 GM TOP SCH ×2 (08:12→21:47)
[2022-02-16] MEDS: INSULIN ASPART PER UNIT SC SCH ×4 (09:09→20:27)
--- NOTE | 2022-02-16 10:42 | Pharmacy Report ---
Pharmacy Glycemic Short Note 2 - Date of Service February 16, 2022 - Glycemic Short BSG Results (Last 24 hours): 02/15/22 02/15/22 02/15/22 10:17 17:33 20:21 Glucose 185 H POC Glucose 160 H 214 H 02/16/22 02/16/22 05:29 07:50 Glucose 99 POC Glucose 104 H OUTPATIENT ANTIDIABETIC REGIMEN: * Lantus 10 units HS * Novolog 4 units PC * Metformin 500 qAM * A1c 6.3 (02/2022) ASSESSMENT: * 86 yr old Female with T2DM admitted 02/15/22 for PNA. * TDD of insulin yesterday was 13 (of which 10 units was basal) * FBSG today is 98 - 104 mg/dl. Loosened Novolog parameters using a stress of 2 d/t poor renal function and oral diet PLAN FOR INPATIENT GLYCEMIC CONTROL: * Hold outpatient oral diabetes medications * Basal insulin * Lantus 10 units SQ HS * Bolus insulin * NovoLog per scale ACHS or Q6hrs while NPO * Goal Range: Low 110 mg/dL - High 150 mg/dL * Correction Factor: 35 mg/dL/unit * Nutritional / Prandial insulin per carb ratio of 1 unit per 12 grams CHO consumed
[2022-02-16] MEDS: VITAMIN B COMPLEX TAB PO SCH (11:45)
--- NOTE | 2022-02-16 12:06 | Hospitalist Progress Note ---
Date of Service February 16, 2022 Assessment & Plan (1) Pneumonia: Plan 86 yo F w/ PMH of moderate persistent asthma, CAD, DM II, CKD, ACD presented 02/15 to our ED w/ c/o worsening SOB, wheezing, cough, chest congestion a/w fever/chills/body aches and failure of OP therapy. As outpatient, she was noted to have desaturation to the mid 80s which improved with increasing of oxygen from 2 to 4 L. At baseline she uses supplemental oxygen of 2 to 2.5 L for about the past year. She is being managed for the following: Pneumonia Hypoxia Failure of outpatient treatment Patient presents with cough productive of greenish-yellow sputum, started on doxycycline and prednisone taper, continued to worsen and presented to the ED. In the outpatient clinic, she was negative for RSV/COVID/influenza A and B. At admission, respiratory panel negative. Admitting CTA chest: Negative for PE, suggestive of patchy bilateral airspace opacities, more on right lower lobe. Suggestive of pneumonia. Rule out aspiration pneumonitis. Continue with Mucinex, DuoNebs, as needed Hycodan for persistent cough. Wean oxygen as tolerated, currently requiring 4 L, at baseline uses 2 to 2.5 L Patient afebrile, WBC still high, likely secondary to steroid use prior to arrival. Follow-up blood and sputum culture and Legionella antigen. We will get speech consult. Continue with cefepime and metronidazole 02/15. DM type II, controlled: A1c of 7.4 in the spring 2021, A1c this admission 6.3, continue with sliding scale, glycemic pharmacy on board. Bilateral upper buttock healed and scabbed prior ulceration site: continue pressure point care and dressing, position changes every 2 hours. DVT prophylaxis: Hep SC. Code: DNR/DNI Disposition: From [facility], likely DC in next 1 to 2 days. PT/OT, CM to assist with DC planning. Admission and Anticipated Discharge Date Admission Date: February 15, 2022 Subjective Patient seen and examined at bedside as a follow-up of pneumonia, failure of outpatient treatment. Patient was lying in bed, on 4 L nasal cannula oxygen, NAD, reports no new acute event overnight, reports decreased appetite, reports some difficulty with swallowing, is hard of hearing, pt not sure when last bowel movement was, reports some cough with the sputum but is unable to spit it out. Reports being tired and lethargic. Reports no other complaints. Physical Exam Physical Exam: GENERAL: Alert and oriented x3. NAD, on 4L NC O2. Appears ill/weak/frail. HEENT: No pallor, no icterus. Pupils equal, round and reactive to light. Oral mucosa moist. NECK: No JVD, no neck masses. HEART: S1 and S2 heard. Regular rate and rhythm. No murmur, no gallop. RESPIRATORY SYSTEM: Normal AP diameter. No accessory muscle use. No wheezing, b/b crackles. ABDOMEN: Soft, bowel sounds present, nontender, no distention. CENTRAL NERVOUS SYSTEM: No facial droop. Speech is clear. Obeys simple commands. Moves extremities. EXTREMITIES: No edema, no erythema seen. Healed and scabbed b/l buttock ulcer. Results & Data Results & Data ([facility]) Vital Signs (Past 12 Hours) Vital Signs Temp Pulse Pulse Resp BP BP Pulse Ox 02/16/22 11:46 36.8 C 73 18 93 02/16/22 11:14 72 18 92 02/16/22 09:10 69 02/16/22 07:15 36.8 C 87 18 172/69 H 93 02/16/22 07:55 02/16/22 07:34 86 18 93 02/16/22 03:41 36.4 C L 75 16 132/56 L 95 02/16/22 03:28 75 18 95 O2 Del Method O2 Flow Rate 02/16/22 11:46 Nasal Cannula 4 02/16/22 11:14 Nasal Cannula 4 02/16/22 09:10 02/16/22 07:15 Nasal Cannula 4 02/16/22 07:55 Nasal Cannula 4 02/16/22 07:34 Nasal Cannula 4 02/16/22 03:41 Nasal Cannula 4 02/16/22 03:28 Nasal Cannula 4
[2022-02-16] MEDS: ONDANSETRON INJ 2 MG/ML 2 ML VIAL IV PRN ×2 (12:14→20:26)
[2022-02-16] MEDS ORDERED: HYDROcodone/HOMATROPINE SYRUP 5MG/1.5MG 5ML UDP PO PRN (12:20)
[2022-02-16] MEDS: LANTUS PER UNIT CHARGE SQ SCH (20:27)
[2022-02-16] MEDS: MELATONIN 3 MG TAB PO SCH (20:28)
[2022-02-16] MEDS: POLYETHYLENE (MIRALAX) 17 GM PACK PO SCH (20:28)
[2022-02-16] MEDS: MONTELUKAST SODIUM 10 MG TABLET PO SCH (20:28)
[2022-02-16] MEDS: ATORVASTATIN 40 MG TAB PO SCH (20:30)
[2022-02-16] MEDS: ACETAMINOPHEN 325 MG TAB PO PRN (20:48)
[2022-02-17] MEDS ORDERED: MoRPHine SULFATE 2 MG/ML CARP IV STA (01:36)
[2022-02-17] MEDS: ALBUT/IPRATROP 3MG/0.5MG NEB 3 ML VIAL NEB SCH ×6 (02:40→23:07)
[2022-02-17] MEDS: metroNIDAZOLE 500 MG/100 ML BAG IV SCH ×3 (05:39→22:50)
[2022-02-17] MEDS: FLUTICASONE/VILANTEROL 200/25MCG 14 PUFFS/INHALER INH SCH (08:07)
[2022-02-17] MEDS: allopurinoL 100 MG TAB PO SCH (08:08)
[2022-02-17] MEDS: LOSARTAN POTASSIUM 50 MG TAB PO SCH (08:08)
[2022-02-17] MEDS: ISOSORBIDE MONO EXTENDED REL 60 MG TABCR PO SCH (08:08)
[2022-02-17] MEDS: amLODIPine BESYLATE 5 MG TAB PO SCH (08:08)
[2022-02-17] MEDS: DULoxetine HCL 30 MG CAP PO SCH (08:08)
[2022-02-17] MEDS: GABAPENTIN 100 MG CAP PO SCH ×3 (08:08→20:15)
[2022-02-17] MEDS: FERROUS SULFATE 325 MG TAB PO SCH ×2 (08:08→17:36)
[2022-02-17] MEDS: busPIRone 5 MG TAB PO SCH ×2 (08:08→20:16)
[2022-02-17] MEDS: guaiFENesin 600 MG TABCR PO SCH ×2 (08:08→20:15)
[2022-02-17] MEDS: METOPROLOL TARTRATE 50 MG TAB PO SCH ×2 (08:08→20:17)
[2022-02-17] MEDS: ASPIRIN 81 MG ECTAB PO SCH (08:08)
[2022-02-17] MEDS: DULoxetine HCL 60 MG CAP PO SCH (08:08)
[2022-02-17] MEDS: PANTOprazole 40 MG TAB PO SCH (08:08)
[2022-02-17] MEDS: CEFEPIME 2,000 MG in SYRINGE 0 ML IV SCH ×2 (08:08→20:13)
[2022-02-17] MEDS: FUROSEMIDE 20 MG TAB PO SCH (08:09)
[2022-02-17] MEDS: HEPARIN SOD 5,000 UNIT/0.5 ML VIAL SQ SCH ×2 (08:10→20:17)
[2022-02-17] MEDS: LIDOCAINE 5% 1 PATCH TD SCH (08:10)
[2022-02-17] MEDS: MICONAZOLE NITRATE POWDER 43 GM TOP SCH ×2 (08:10→20:17)
[2022-02-17] MEDS: INSULIN ASPART PER UNIT SC SCH ×4 (09:01→20:13)
[2022-02-17 09:51] LABS: Hematocrit (blood only) 29.1 % (34.1-44.9); Mean Corpuscular Hemoglobin 30.3 pg (25.0-34.0); Mean Corpuscular Hgb Conc 30.9 g/dL (32.0-36.0); Mean Platelet Volume 10.8 fL (9.4-12.3); Platelet Count 152 K/uL (130-400); RDW Standard Deviation 50.2 fL (36.4-46.3); Red Blood Count 2.97 M/uL (3.93-5.22); White Blood Count 15.02 K/ul (4.8-10.8)
[2022-02-17 10:10] LABS: BUN Creatinine Ratio 34.2 (10-20); Calcium 9.5 mg/dl (8.5-10.1); Creatinine Clr Calc Pharmacy 34.6 ml/min; Est GFR (African American) 52.8 ml/min; Est GFR (Non-African American) 45.6 ml/min; Magnesium 1.7 mg/dl (1.7-2.4); Phosphorus 3.7 mg/dl (2.5-4.9); Potassium 4.1 mmol/L (3.5-5.1)
--- NOTE | 2022-02-17 10:13 | Pharmacy Report ---
Pharmacy Glycemic Short Note 2 - Date of Service February 17, 2022 - Glycemic Short BSG Results (Last 24 hours): 02/16/22 02/16/22 02/16/22 12:14 16:58 20:08 Glucose POC Glucose 152 H 146 H 161 H 02/17/22 02/17/22 08:01 09:22 Glucose 144 H POC Glucose 137 H OUTPATIENT ANTIDIABETIC REGIMEN: * Lantus 10 units HS * Novolog 4 units PC * Metformin 500 qAM * A1c 6.3 (02/2022) ASSESSMENT: 02/17: * BSGs acceptable, 796-273-496gj/dL the last 24h. Patient received 8 units of basal and 3 units bolus insulin yesterday. * Ordered a diet, however with decreased PO the lat 2 days. Continues on an tibiotics. * Given decreased PO, will reduce basal insulin per scale tonight. No change to Novolog. 02/16: * 86 yr old Female with T2DM admitted 02/15/22 for PNA. * TDD of insulin yesterday was 13 (of which 10 units was basal) * FBSG today is 98 - 104 mg/dl. Loosened Novolog parameters using a stress of 2 d/t poor renal function and oral diet PLAN FOR INPATIENT GLYCEMIC CONTROL: * Hold outpatient oral diabetes medications * Basal insulin * Lantus HS per scale * Bolus insulin * NovoLog per scale ACHS or Q6hrs while NPO * Goal Range: Low 110 mg/dL - High 150 mg/dL * Correction Factor: 35 mg/dL/unit * Nutritional / Prandial insulin per carb ratio of 1 unit per 12 grams CHO consumed
[2022-02-17] MEDS: VITAMIN B COMPLEX TAB PO SCH (11:21)
--- NOTE | 2022-02-17 16:16 | Hospitalist Progress Note ---
Date of Service February 17, 2022 Assessment & Plan (1) Pneumonia: Plan 86 yo F w/ PMH of moderate persistent asthma, CAD, DM II, CKD, ACD presented 02/15 to our ED w/ c/o worsening SOB, wheezing, cough, chest congestion a/w fever/chills/body aches and failure of OP therapy. As outpatient, she was noted to have desaturation to the mid 80s which improved with increasing of oxygen from 2 to 4 L. At baseline she uses supplemental oxygen of 2 to 2.5 L for about the past year. She is being managed for the following: Pneumonia Hypoxia Failure of outpatient treatment Patient presents with cough productive of greenish-yellow sputum, started on doxycycline and prednisone taper, continued to worsen and presented to the ED. In the outpatient clinic, she was negative for RSV/COVID/influenza A and B. At admission, respiratory panel negative. Admitting CTA chest: Negative for PE, suggestive of patchy bilateral airspace opacities, more on right lower lobe. Suggestive of pneumonia. Rule out aspiration pneumonitis. Admitting Sputum Cx: GNB, f/u final. Admitting Bl Cx: NG so far Admitting legionella: negative. Continue with Mucinex, DuoNebs, as needed Hycodan for persistent cough. Will add mucomyst. Wean oxygen as tolerated, currently requiring 5 L, at baseline uses 2 to 2.5 L, f/u w/ CXR in AM if w/ increasing O2. Speech evaled, appreciate recs. Continue with cefepime and metronidazole 02/15. DM type II, controlled: A1c of 7.4 in the spring 2021, A1c this admission 6.3, continue with sliding scale, glycemic pharmacy on board. Bilateral upper buttock healed and scabbed prior ulceration site: continue pressure point care and dressing, position changes every 2 hours. DVT prophylaxis: Hep SC. Code: DNR/DNI Disposition: From [facility], likely DC in next 1 to 2 days. PT/OT, CM to assist with DC planning. Admission and Anticipated Discharge Date Admission Date: February 15, 2022 Subjective Patient seen and examined at bedside as a follow-up of pneumonia, failure of out patient treatment. Patient was lying in bed, on 5 L nasal cannula oxygen, NAD, reports no new acute event overnight, Per RN, pt has decreased appetite but eats better when assisted, cough getting better but patient feels she needs to cough up sputum/feel "something struck at throat" , is hard of hearing, had 2 small fecal incontinence today. Reports being tired and lethargic. Reports no other co mplaints. Physical Exam Physical Exam: GENERAL: Alert and oriented x3. NAD, on 5L NC O2. Appears ill/weak/frail. HEENT: No pallor, no icterus. Pupils equal, round and reactive to light. Oral mucosa moist. NECK: No JVD, no neck masses. HEART: S1 and S2 heard. Regular rate and rhythm. No murmur, no gallop. RESPIRATORY SYSTEM: Normal AP diameter. No accessory muscle use. No wheezing, b/b crackles. ABDOMEN: Soft, bowel sounds present, nontender, no distention. CENTRAL NERVOUS SYSTEM: No facial droop. Speech is clear. Obeys simple commands. Moves extremities. EXTREMITIES: No edema, no erythema seen. Results & Data Results & Data ([facility]) Vital Signs (Past 12 Hours) Vital Signs Temp Pulse Pulse Pulse Resp BP Pulse Ox 02/17/22 15:06 77 18 65 L 02/17/22 11:40 36.9 C 70 20 130/60 94 02/17/22 11:08 70 18 94 02/17/22 09:46 78 02/17/22 08:00 02/17/22 07:09 82 18 95 02/17/22 07:02 36.5 C 85 20 158/63 H 93 O2 Del Method O2 Flow Rate 02/17/22 15:06 Room Air 02/17/22 11:40 Nasal Cannula 4 02/17/22 11:08 Nasal Cannula 4 02/17/22 09:46 02/17/22 08:00 Nasal Cannula 4 02/17/22 07:09 Nasal Cannula 4 02/17/22 07:02 Nasal Cannula 4
[2022-02-17] MEDS: ACETYLCYSTEINE 20% INHAL SOLN 4ML ***DISPENSED BY RESP. INH SCH (19:27)
[2022-02-17] MEDS: ACETAMINOPHEN 325 MG TAB PO PRN (20:12)
[2022-02-17] MEDS: ATORVASTATIN 40 MG TAB PO SCH (20:14)
[2022-02-17] MEDS: MONTELUKAST SODIUM 10 MG TABLET PO SCH (20:14)
[2022-02-17] MEDS: LANTUS PER UNIT CHARGE SQ SCH (20:14)
[2022-02-17] MEDS: POLYETHYLENE (MIRALAX) 17 GM PACK PO SCH (20:15)
[2022-02-17] MEDS: MELATONIN 3 MG TAB PO SCH (20:17)
[2022-02-18 05:00] LABS: Hematocrit (blood only) 31.5 % (34.1-44.9); Hemoglobin 9.6 g/dl (12.0-16.0); Mean Corpuscular Hemoglobin 30.1 pg (25.0-34.0); Mean Corpuscular Hgb Conc 30.5 g/dL (32.0-36.0); Mean Corpuscular Volume 98.7 fL (80.0-100.0); Platelet Count 170 K/uL (130-400); RDW Coefficient of Variation 13.9 % (11.5-14.5); RDW Standard Deviation 50.1 fL (36.4-46.3); Red Blood Count 3.19 M/uL (3.93-5.22); White Blood Count 14.79 K/ul (4.8-10.8)
[2022-02-18 05:18] LABS: BUN Creatinine Ratio 35.6 (10-20); Calcium 9.6 mg/dl (8.5-10.1); Creatinine Clr Calc Pharmacy 32.6 ml/min; Est GFR (Non-African American) 42.3 ml/min; Magnesium 1.9 mg/dl (1.7-2.4); Potassium 4.2 mmol/L (3.5-5.1)
[2022-02-18] MEDS: metroNIDAZOLE 500 MG/100 ML BAG IV SCH (05:46)
[2022-02-18] MEDS: ACETYLCYSTEINE 20% INHAL SOLN 4ML ***DISPENSED BY RESP. INH SCH ×2 (07:44→19:28)
[2022-02-18] MEDS: ALBUT/IPRATROP 3MG/0.5MG NEB 3 ML VIAL NEB SCH ×4 (07:44→19:28)
[2022-02-18] MEDS: INSULIN ASPART PER UNIT SC SCH ×4 (09:12→20:26)
[2022-02-18] MEDS: GABAPENTIN 100 MG CAP PO SCH ×3 (09:13→20:28)
[2022-02-18] MEDS: CEFEPIME 2,000 MG in SYRINGE 0 ML IV SCH ×2 (09:13→20:26)
[2022-02-18] MEDS: ADVANCED PROBIOTIC 1250 MG CAPSULE PO SCH (09:13)
[2022-02-18] MEDS: busPIRone 5 MG TAB PO SCH ×2 (09:13→20:29)
[2022-02-18] MEDS: guaiFENesin 600 MG TABCR PO SCH ×2 (09:14→20:27)
[2022-02-18] MEDS: ASPIRIN 81 MG ECTAB PO SCH (09:14)
[2022-02-18] MEDS: amLODIPine BESYLATE 5 MG TAB PO SCH (09:14)
[2022-02-18] MEDS: FUROSEMIDE 20 MG TAB PO SCH (09:14)
[2022-02-18] MEDS: ISOSORBIDE MONO EXTENDED REL 60 MG TABCR PO SCH (09:14)
[2022-02-18] MEDS: FERROUS SULFATE 325 MG TAB PO SCH ×2 (09:14→17:30)
[2022-02-18] MEDS: METOPROLOL TARTRATE 50 MG TAB PO SCH ×2 (09:15→20:28)
[2022-02-18] MEDS: DULoxetine HCL 30 MG CAP PO SCH (09:15)
[2022-02-18] MEDS: DULoxetine HCL 60 MG CAP PO SCH (09:15)
[2022-02-18] MEDS: PANTOprazole 40 MG TAB PO SCH (09:15)
[2022-02-18] MEDS: LOSARTAN POTASSIUM 50 MG TAB PO SCH (09:15)
[2022-02-18] MEDS: LIDOCAINE 5% 1 PATCH TD SCH (09:16)
[2022-02-18] MEDS: HEPARIN SOD 5,000 UNIT/0.5 ML VIAL SQ SCH ×2 (09:17→20:27)
[2022-02-18] MEDS: FLUTICASONE/VILANTEROL 200/25MCG 14 PUFFS/INHALER INH SCH (09:17)
[2022-02-18] MEDS: MICONAZOLE NITRATE POWDER 43 GM TOP SCH ×2 (09:17→20:29)
[2022-02-18] MEDS: allopurinoL 100 MG TAB PO SCH (10:25)
[2022-02-18] MEDS: VITAMIN B COMPLEX TAB PO SCH (12:58)
--- NOTE | 2022-02-18 13:50 | Pharmacy Report ---
Pharmacy Glycemic Short Note 2 - Date of Service February 18, 2022 - Glycemic Short BSG Results (Last 24 hours): 02/17/22 02/17/22 02/18/22 16:53 19:57 04:25 Glucose 129 H POC Glucose 146 H 182 H 02/18/22 02/18/22 07:52 11:57 Glucose POC Glucose 168 H 163 H OUTPATIENT ANTIDIABETIC REGIMEN: * Lantus 10 units HS * Novolog 4 units PC * Metformin 500 qAM * A1c 6.3 (02/2022) ASSESSMENT: 02/18: * BSGs [phone] mg/dL yesterday * Fasting this AM 168 mg/dl with 4 units of basal, will increase scale as this is above goal * Continue current novolog parameters 02/17: * BSGs acceptable, 887-780-384jo/dL the last 24h. Patient received 8 units of basal and 3 units bolus insulin yesterday. * Ordered a diet, however with decreased PO the lat 2 days. Continues on antibiotics. * Given decreased PO, will reduce basal insulin per scale tonight. No change to Novolog. 02/16: * 86 yr old Female with T2DM admitted 02/15/22 for PNA. * TDD of insulin yesterday was 13 (of which 10 units was basal) * FBSG today is 98 - 104 mg/dl. Loosened Novolog parameters using a stress of 2 d/t poor renal function and oral diet PLAN FOR INPATIENT GLYCEMIC CONTROL: * Hold outpatient oral diabetes medications * Basal insulin * Lantus HS per scale * Bolus insulin * NovoLog per scale ACHS or Q6hrs while NPO * Goal Range: Low 110 mg/dL - High 150 mg/dL * Correction Factor: 35 mg/dL/unit * Nutritional / Prandial insulin per carb ratio of 1 unit per 12 grams CHO consumed
--- NOTE | 2022-02-18 16:49 | Hospitalist Progress Note ---
Date of Service February 18, 2022 Assessment & Plan (1) Pneumonia: Plan 86 yo F w/ PMH of moderate persistent asthma, CAD, DM II, CKD, ACD presented 02/15 to our ED w/ c/o worsening SOB, wheezing, cough, chest congestion a/w fever/chills/body aches and failure of OP therapy. As outpatient, she was noted to have desaturation to the mid 80s which improved with increasing of oxygen from 2 to 4 L. At baseline she uses supplemental oxygen of 2 to 2.5 L for about the past year. She is being managed for the following: Pneumonia Hypoxia Failure of outpatient treatment Patient presents with cough productive of greenish-yellow sputum, started on doxycycline and prednisone taper, continued to worsen and presented to the ED. In the outpatient clinic, she was negative for RSV/COVID/influenza A and B. At admission, respiratory panel negative. Admitting CTA chest: Negative for PE, suggestive of patchy bilateral airspace opacities, more on right lower lobe. Suggestive of pneumonia. Rule out aspiration pneumonitis. Admitting Sputum Cx: GNB, f/u final. Admitting Bl Cx: NG so far Admitting legionella: negative. Continue with Mucinex, DuoNebs, as needed Hycodan for persistent cough. c/w mucomyst. Wean oxygen as tolerated, currently requiring 4 L, at baseline uses 2 to 2.5 L, f/u w/ CXR in AM if w/ increasing O2. Speech evaled, appreciate recs. Continue with cefepime and metronidazole 02/15 --> to cefepime only 02/18 DM type II, controlled: A1c of 7.4 in the spring 2021, A1c this admission 6.3, continue with sliding scale, glycemic pharmacy on board. Bilateral upper buttock healed and scabbed prior ulceration site: continue pressure point care and dressing, position changes every 2 hours. DVT prophylaxis: Hep SC. Code: DNR/DNI Disposition: From [facility]. PT/OT, CM to assist with DC planning. Admission and Anticipated Discharge Date Admission Date: February 15, 2022 Subjective Patient seen and examined at bedside as a follow-up of pneumonia, failure of outpatient treatment. Patient was lying in bed, on 4L nasal cannula oxygen, NAD, reports no new acute event overnight, Pt reports decreased appetite, had good bm today, cough getting better and reports being able to produce mucus, is hard of hearing. Reports being tired and lethargic. Reports no other complaints. Physical Exam Physical Exam: GENERAL: Alert and oriented x3. NAD, on 4L NC O2. Appears ill/weak/frail. HEENT: No pallor, no icterus. Pupils equal, round and reactive to light. Oral mucosa moist. NECK: No JVD, no neck masses. HEART: S1 and S2 heard. Regular rate and rhythm. No murmur, no gallop. RESPIRATORY SYSTEM: Normal AP diameter. No accessory muscle use. No wheezing, b/b crackles. ABDOMEN: Soft, bowel sounds present, nontender, no distention. CENTRAL NERVOUS SYSTEM: No facial droop. Speech is clear. Obeys simple commands. Moves extremities. EXTREMITIES: No edema, no erythema seen. Results & Data Results & Data ([facility]) Vital Signs (Past 12 Hours) Vital Signs Temp Pulse Pulse Pulse Resp BP BP 02/18/22 16:11 36.9 C 73 20 127/73 02/18/22 15:27 74 18 02/18/22 08:00 83 02/18/22 15:14 72 02/18/22 13:03 02/18/22 12:20 36.9 C 66 17 109/58 L 02/18/22 10:30 67 18 02/18/22 08:03 36.8 C 86 19 157/74 H 02/18/22 07:45 83 18 Pulse Ox O2 Del Method O2 Flow Rate 02/18/22 16:11 95 Nasal Cannula 4.0 02/18/22 15:27 94 Nasal Cannula 4 02/18/22 08:00 02/18/22 15:14 02/18/22 13:03 Nasal Cannula 4 02/18/22 12:20 92 Nasal Cannula 4 02/18/22 10:30 90 Nasal Cannula 3 02/18/22 08:03 96 Nasal Cannula 4 02/18/22 07:45 93 Nasal Cannula 4
[2022-02-18] MEDS: LANTUS PER UNIT CHARGE SQ SCH (20:26)
[2022-02-18] MEDS: POLYETHYLENE (MIRALAX) 17 GM PACK PO SCH (20:28)
[2022-02-18] MEDS: ATORVASTATIN 40 MG TAB PO SCH (20:28)
[2022-02-18] MEDS: MONTELUKAST SODIUM 10 MG TABLET PO SCH (20:28)
[2022-02-18] MEDS: MELATONIN 3 MG TAB PO SCH (20:30)
[2022-02-19 06:11] LABS: Hemoglobin 8.7 g/dl (12.0-16.0); Mean Corpuscular Hemoglobin 30.7 pg (25.0-34.0); Mean Corpuscular Hgb Conc 31.1 g/dL (32.0-36.0); Mean Corpuscular Volume 98.9 fL (80.0-100.0); Platelet Count 145 K/uL (130-400); RDW Coefficient of Variation 13.7 % (11.5-14.5); RDW Standard Deviation 49.8 fL (36.4-46.3); Red Blood Count 2.83 M/uL (3.93-5.22); White Blood Count 11.76 K/ul (4.8-10.8)
[2022-02-19 06:28] LABS: BUN Creatinine Ratio 41.4 (10-20); Calcium 8.7 mg/dl (8.5-10.1); Creatinine Clr Calc Pharmacy 39.9 ml/min; Est GFR (African American) 60.6 ml/min; Est GFR (Non-African American) 52.3 ml/min; Potassium 3.9 mmol/L (3.5-5.1)
[2022-02-19] MEDS: ACETYLCYSTEINE 20% INHAL SOLN 4ML ***DISPENSED BY RESP. INH SCH (07:42)
[2022-02-19] MEDS: ALBUT/IPRATROP 3MG/0.5MG NEB 3 ML VIAL NEB SCH ×2 (07:42→11:36)
[2022-02-19] MEDS: PANTOprazole 40 MG TAB PO SCH (07:57)
[2022-02-19] MEDS: guaiFENesin 600 MG TABCR PO SCH ×2 (07:57→22:08)
[2022-02-19] MEDS: ADVANCED PROBIOTIC 1250 MG CAPSULE PO SCH (07:57)
[2022-02-19] MEDS: DULoxetine HCL 60 MG CAP PO SCH (07:57)
[2022-02-19] MEDS: DULoxetine HCL 30 MG CAP PO SCH (07:57)
[2022-02-19] MEDS: FUROSEMIDE 20 MG TAB PO SCH (07:57)
[2022-02-19] MEDS: ISOSORBIDE MONO EXTENDED REL 60 MG TABCR PO SCH (07:57)
[2022-02-19] MEDS: amLODIPine BESYLATE 5 MG TAB PO SCH (07:58)
[2022-02-19] MEDS: FERROUS SULFATE 325 MG TAB PO SCH ×2 (07:58→17:38)
[2022-02-19] MEDS: GABAPENTIN 100 MG CAP PO SCH ×3 (07:58→22:09)
[2022-02-19] MEDS: allopurinoL 100 MG TAB PO SCH (07:58)
[2022-02-19] MEDS: ASPIRIN 81 MG ECTAB PO SCH (07:58)
[2022-02-19] MEDS: FLUTICASONE/VILANTEROL 200/25MCG 14 PUFFS/INHALER INH SCH (07:58)
[2022-02-19] MEDS: HEPARIN SOD 5,000 UNIT/0.5 ML VIAL SQ SCH ×2 (07:58→22:10)
[2022-02-19] MEDS: METOPROLOL TARTRATE 50 MG TAB PO SCH ×2 (07:58→22:10)
[2022-02-19] MEDS: busPIRone 5 MG TAB PO SCH ×2 (07:58→22:09)
[2022-02-19] MEDS: LOSARTAN POTASSIUM 50 MG TAB PO SCH (08:00)
[2022-02-19] MEDS: LIDOCAINE 5% 1 PATCH TD SCH (08:00)
[2022-02-19] MEDS: CEFEPIME 2,000 MG in SYRINGE 0 ML IV SCH (08:09)
[2022-02-19] MEDS: MICONAZOLE NITRATE POWDER 43 GM TOP SCH ×2 (08:09→22:12)
[2022-02-19] MEDS: INSULIN ASPART PER UNIT SC SCH ×4 (09:12→22:00)
[2022-02-19] MEDS: VITAMIN B COMPLEX TAB PO SCH (12:55)
--- NOTE | 2022-02-19 13:24 | Hospitalist Progress Note ---
Date of Service February 19, 2022 Assessment & Plan (1) Pneumonia: Plan: Patient presents with cough productive of greenish-yellow sputum, started on doxycycline and prednisone taper, continued to worsen and presented to the ED. In the outpatient clinic, she was negative for RSV/COVID/influenza A and B. At admission, respiratory panel negative. Admitting CTA chest: Negative for PE, suggestive of patchy bilateral airspace opacities, more on right lower lobe. Suggestive of pneumonia. Rule out aspiration pneumonitis. sputum culture positive for luther-sensitive pseudomonas Continue with Mucinex, DuoNebs changed to PRN, stop hycodan and stop mucomyst. Wean oxygen as tolerated, currently requiring 4 L, at baseline uses 2 to 2.5 L Speech evaled, appreciate recs. Continue with cefepime and metronidazole 02/15 --> to cefepime only 02/18 02/19--> complete 10 day course with oral cipro (renally dosed to 500mg q12H) (2) Hypoxemia: Plan: as noted above. (3) DM II (diabetes mellitus, type II), controlled: Plan: A1c of 7.4 in the spring 2021, A1c this admission 6.3, continue with sliding scale, glycemic pharmacy on board. (4) Fatigue: Plan: PT/OT working with her. Encouraged to get out of bed q shift. Max assist. (5) Physical deconditioning: Plan: Plan for SNF for rehab. DVT proph: heparin DNR/DNI Dispo- to SNF after the weekend. Shannon Hitchcock DO [facility] Hospitalist Admission and Anticipated Discharge Date Admission Date: February 15, 2022 Subjective Patient seen and examined at bedside as a follow-up of pneumonia, failure of outpatient treatment. She is fatigued today and slow to respond to questioning. She reports feeling better overall but is not very conversational. Most answers are yes/no She has spilled coffee on the front of her gown and doesn't seem too bothered by this-nots nurse is aware and will be changing. Alfredo pain States cough is improved. States she is on oxygen continuously at home but doesn't know how much. States she lives at [facility] "halfway" and has been bedbound for the past two weeks. Has lived at [facility] for the past year. Review of Systems Review of Systems: All systems reviewed negative except as indicated above. Physical Exam Physical Exam: CONSTITUTIONAL: WNWD, vitals as above, generally appears elderly and fatigued. NAD EYES: pupils are round and equal bilaterally, normal conjunctivae, no scleral icterus ENT: external ear and nose normal, MMM NECK: trachea midline RESPIRATORY: clear to auscultation bilaterally, no crackles, rales or wheezes, poor respiratory effort, no increased work of breathing. CARDIOVASCULAR: regular rate and rhythm, S1 and 2 heard without murmurs, gallops or rubs, no JVD, no peripheral edema CHEST: inspection of chest was normal GASTROINTESTINAL: soft, nontender, ND MUSCULOSKELETAL: strength 5/5 throughout, head is normocephalic and atraumatic SKIN: warm and dry, no rashes noted NEUROLOGIC: CN 2-12 grossly intact, no sensory deficit, normal cognition, normal speech, no tremor PSYCHIATRIC: alert cooperative and oriented to person, place and time. Euthymic mood, makes good eye contact, language grossly intact, recent and remote memory grossly Results & Data Results & Data ([facility]) Vital Signs (Past 12 Hours) Vital Signs Temp Pulse Pulse Resp BP BP Pulse Ox 02/19/22 11:48 36.7 C 68 20 136/65 96 02/19/22 11:37 71 16 95 02/19/22 07:30 82 02/19/22 07:30 02/19/22 07:43 88 18 94 02/19/22 07:10 36.9 C 80 18 146/56 H 98 02/19/22 03:47 36.5 C 78 18 102/60 92 O2 Del Method O2 Flow Rate 02/19/22 11:48 Nasal Cannula 4 02/19/22 11:37 Nasal Cannula 4 02/19/22 07:30 02/19/22 07:30 Nasal Cannula 4 02/19/22 07:43 Nasal Cannula 4 02/19/22 07:10 Nasal Cannula 5 02/19/22 03:47 Nasal Cannula Laboratory Results Short CBC 02/19/22 Range/Units 05:21 WBC 11.76 H (4.8-10.8) K/ul Hgb 8.7 L (12.0-16.0) g/dl Hct 28.0 L (34.1-44.9) % Plt Count 145 (130-400) K/uL BMP 02/19/22 05:21 Sodium 144 Potassium 3.9 Chloride 109 H Carbon Dioxide 33 H BUN 41 H Creatinine 0.99 Glucose 129 H Calcium 8.7 Medications Administered Current Inpatient Medications Acetaminophen (Acetaminophen 325 Mg Tab) 650 mg PO Q4H PRN PRN Reason: Moderate Pain/FEVER Stop: 03/17/22 17:27 Last Admin: 02/17/22 20:12 Dose: 650 mg Acetylcysteine (Acetylcysteine 20% Inhal Soln 4ml Dispensed By Resp.) 5 ml INH Q12R [facility] Stop: 03/19/22 18:59 Last Admin: 02/19/22 07:42 Dose: 5 ml Albuterol (Albut/Ipratrop 3mg/0.5mg Neb 3 Ml Vial) 3 ml NEB QIDR [facility]; Protocol Stop: 03/20/22 06:59 Last Admin: 02/19/22 11:36 Dose: 3 ml Allopurinol (Allopurinol 100 Mg Tab) 100 mg PO DAILY [facility] Stop: 03/18/22 08:59 Last Admin: 02/19/22 07:58 Dose: 100 mg Amlodipine Besylate (Amlodipine Besylate 5 Mg Tab) 10 mg PO DAILY [facility] Stop: 03/18/22 08:59 Last Admin: 02/19/22 07:58 Dose: 10 mg Aspirin (Aspirin 81 Mg Ectab) 81 mg PO DAILY [facility] Stop: 03/18/22 08:59 Last Admin: 02/19/22 07:58 Dose: 81 mg Atorvastatin Calcium (Atorvastatin 40 Mg Tab) 40 mg PO HS [facility] Stop: 03/17/22 20:59 Last Admin: 02/18/22 20:28 Dose: 40 mg Buspirone HCl (Buspirone 5 Mg Tab) 5 mg PO AMHS [facility] Stop: 03/17/22 20:59 Last Admin: 02/19/22 07:58 Dose: 5 mg Dextrose (Dextrose 50% 50 Ml Syringe) 25 - 50 ml IV UD PRN; Protocol PRN Reason: Hypoglycemia Protocol Stop: 03/17/22 17:27 Duloxetine HCl (Duloxetine Hcl 30 Mg Cap) 30 mg PO DAILY [facility] Stop: 03/18/22 08:59 Last Admin: 02/19/22 07:57 Dose: 30 mg Duloxetine HCl (Duloxetine Hcl 60 Mg Cap) 60 mg PO DAILY [facility] Stop: 03/18/22 08:59 Last Admin: 02/19/22 07:57 Dose: 60 mg Ferrous Sulfate (Ferrous Sulfate 325 Mg Tab) 325 mg PO BIDM [facility] Stop: 03/18/22 07:59 Last Admin: 02/19/22 07:58 Dose: 325 mg Fluticasone/Vilanterol (Fluticasone/Vilanterol 200/25mcg 14 Puffs/Inhaler) 1 puffs INH DAILY [facility] Stop: 03/18/22 08:59 Last Admin: 02/19/22 07:58 Dose: 1 puffs Furosemide (Furosemide 20 Mg Tab) 20 mg PO DAILY [facility] Stop: 03/18/22 08:59 Last Admin: 02/19/22 07:57 Dose: 20 mg Gabapentin (Gabapentin 100 Mg Cap) 100 mg PO TID [facility] Stop: 03/17/22 20:59 Last Admin: 02/19/22 12:56 Dose: 100 mg Glucagon (Glucagon For Inj 1 Mg Vial) 1 mg SQ UD PRN; Protocol PRN Reason: Hypoglycemia Protocol Stop: 03/17/22 17:27 Glucose (Glucose 40% Gel 15 Gm Tube) 15 - 30 gm PO UD PRN; Protocol PRN Reason: Hypoglycemia Protocol Stop: 03/17/22 17:27 Glucose (Glucose 10 Tab/Tube) 4 - 8 tab PO UD PRN; Protocol PRN Reason: Hypoglycemia Treatment Stop: 03/17/22 17:27 Guaifenesin (Guaifenesin 600 Mg Tabcr) 1,200 mg PO Q12 [facility] Stop: 03/17/22 20:59 Last Admin: 02/19/22 07:57 Dose: 1,200 mg Heparin Sodium (Porcine) (Heparin Sod 5,000 Unit/0.5 Ml Vial) 5,000 units SQ Q12 [facility] Stop: 03/17/22 20:59 Last Admin: 02/19/22 07:58 Dose: 5,000 units Hydrocodone Bit/Homatropine Methylb (Hydrocodone/Homatropine Syrup 5mg/1.5mg 5ml Udp) 5 ml PO Q6H PRN PRN Reason: Persistent Cough Stop: 03/01/22 17:27 Cefepime HCl 2,000 mg/ Syringe 20 mls @ 5 mls/min IV Q12H [facility]; Protocol Stop: 02/22/22 19:59 Last Admin: 02/19/22 08:09 Dose: 5 mls/min Insulin Aspart (Insulin Aspart Per Unit) 0 units SC ACHS [facility] Stop: 03/17/22 17:27 Last Admin: 02/19/22 12:52 Dose: 3 units Insulin Glargine (Lantus Per Unit Charge) 0 units SQ HS [facility]; Protocol Stop: 03/18/22 20:59 Last Admin: 02/18/22 20:26 Dose: 8 units Isosorbide Mononitrate (Isosorbide [place] Extended Rel 60 Mg Tabcr) 60 mg PO DAILY [facility] Stop: 03/18/22 08:59 Last Admin: 02/19/22 07:57 Dose: 60 mg Lactobacillus Acidophilus (Advanced Probiotic 1250 Mg Capsule) 2 cap PO DAILY [facility] Stop: 03/20/22 08:59 Last Admin: 02/19/22 07:57 Dose: 2 cap Lidocaine (Lidocaine 5% 1 Patch) 1 patch TD QAM [facility] Stop: 03/18/22 08:59 Last Admin: 02/19/22 08:00 Dose: 1 patch Losartan Potassium (Losartan Potassium 50 Mg Tab) 50 mg PO DAILY [facility] Stop: 03/18/22 08:59 Last Admin: 02/19/22 08:00 Dose: 50 mg Melatonin (Melatonin 3 Mg Tab) 3 mg PO HS [facility] Stop: 03/17/22 20:59 Last Admin: 02/18/22 20:30 Dose: 3 mg Metoprolol Tartrate (Metoprolol Tartrate 50 Mg Tab) 50 mg PO AMHS [facility] Stop: 03/17/22 20:59 Last Admin: 02/19/22 07:58 Dose: 50 mg Miconazole Nitrate (Miconazole Nitrate Powder 43 Gm) 1 appln TOP BID [facility] Stop: 03/17/22 20:59 Last Admin: 02/19/22 08:09 Dose: 1 appln Miscellaneous (Carbohydrates For Hypoglycemia ) 15 - 30 gm PO UD PRN PRN Reason: Hypoglycemia Protocol Stop: 03/17/22 17:27 Miscellaneous (Remove Lidoderm Patch) 1 each N/A DAILY@2100 [facility] Stop: 03/18/22 20:59 Last Admin: 02/18/22 20:29 Dose: 1 each Miscellaneous Information (Pharmacy Glycemic Mgmt Consult) 1 each N/A UD PRN PRN Reason: Consult Stop: 03/17/22 17:27 Montelukast Sodium (Montelukast Sodium 10 Mg Tablet) 10 mg PO HS [facility] Stop: 03/17/22 20:59 Last Admin: 02/18/22 20:28 Dose: 10 mg Ondansetron HCl (Ondansetron Inj 2 Mg/Ml 2 Ml Vial) 4 mg IV Q4H PRN PRN Reason: Nausea And Vomiting Stop: 03/17/22 17:27 Last Admin: 02/16/22 20:26 Dose: 4 mg Pantoprazole Sodium (Pantoprazole 40 Mg Tab) 40 mg PO DAILY [facility] Stop: 03/18/22 08:59 Last Admin: 02/19/22 07:57 Dose: 40 mg Polyethylene Glycol (Polyethylene (Miralax) 17 Gm Pack) 17 gm PO HS [facility] Stop: 03/17/22 20:59 Last Admin: 02/18/22 20:28 Dose: 17 gm Vitamin B Complex (Vitamin B Complex Tab) 1 tab PO DAILY@1200 [facility] Stop: 03/18/22 11:59 Last Admin: 02/19/22 12:55 Dose: 1 tab
[2022-02-19] MEDS ORDERED: ALBUT/IPRATROP 3MG/0.5MG NEB 3 ML VIAL NEB PRN (13:42)
[2022-02-19] MEDS: LANTUS PER UNIT CHARGE SQ SCH (22:00)
[2022-02-19] MEDS: ATORVASTATIN 40 MG TAB PO SCH (22:08)
[2022-02-19] MEDS: MONTELUKAST SODIUM 10 MG TABLET PO SCH (22:11)
[2022-02-19] MEDS: CIPROFLOXACIN 500 MG TAB PO SCH (22:11)
[2022-02-19] MEDS: POLYETHYLENE (MIRALAX) 17 GM PACK PO SCH (22:13)
[2022-02-20 06:45] LABS: Hematocrit (blood only) 30.1 % (34.1-44.9); Hemoglobin 9.4 g/dl (12.0-16.0); Mean Corpuscular Hemoglobin 30.2 pg (25.0-34.0); Mean Corpuscular Hgb Conc 31.2 g/dL (32.0-36.0); Mean Corpuscular Volume 96.8 fL (80.0-100.0); Mean Platelet Volume 11.2 fL (9.4-12.3); Platelet Count 146 K/uL (130-400); RDW Coefficient of Variation 13.6 % (11.5-14.5); RDW Standard Deviation 47.9 fL (36.4-46.3); Red Blood Count 3.11 M/uL (3.93-5.22); White Blood Count 9.77 K/ul (4.8-10.8)
[2022-02-20 07:12] LABS: BUN Creatinine Ratio 40.3 (10-20); Creatinine Clr Calc Pharmacy 51.2 ml/min; Est GFR (African American) 82.2 ml/min; Est GFR (Non-African American) 70.9 ml/min; Potassium 3.8 mmol/L (3.5-5.1)
[2022-02-20] MEDS: allopurinoL 100 MG TAB PO SCH (08:02)
[2022-02-20] MEDS: CIPROFLOXACIN 500 MG TAB PO SCH ×2 (08:02→21:02)
[2022-02-20] MEDS: guaiFENesin 600 MG TABCR PO SCH ×2 (08:02→21:02)
[2022-02-20] MEDS: ADVANCED PROBIOTIC 1250 MG CAPSULE PO SCH (08:02)
[2022-02-20] MEDS: busPIRone 5 MG TAB PO SCH ×2 (08:02→21:02)
[2022-02-20] MEDS: METOPROLOL TARTRATE 50 MG TAB PO SCH ×2 (08:02→21:02)
[2022-02-20] MEDS: ISOSORBIDE MONO EXTENDED REL 60 MG TABCR PO SCH (08:02)
[2022-02-20] MEDS: PANTOprazole 40 MG TAB PO SCH (08:02)
[2022-02-20] MEDS: ASPIRIN 81 MG ECTAB PO SCH (08:02)
[2022-02-20] MEDS: LOSARTAN POTASSIUM 50 MG TAB PO SCH (08:03)
[2022-02-20] MEDS: GABAPENTIN 100 MG CAP PO SCH ×3 (08:03→21:02)
[2022-02-20] MEDS: FUROSEMIDE 20 MG TAB PO SCH (08:03)
[2022-02-20] MEDS: MICONAZOLE NITRATE POWDER 43 GM TOP SCH ×2 (08:03→21:02)
[2022-02-20] MEDS: LIDOCAINE 5% 1 PATCH TD SCH (08:03)
[2022-02-20] MEDS: HEPARIN SOD 5,000 UNIT/0.5 ML VIAL SQ SCH ×2 (08:03→21:02)
[2022-02-20] MEDS: FLUTICASONE/VILANTEROL 200/25MCG 14 PUFFS/INHALER INH SCH (08:03)
[2022-02-20] MEDS: DULoxetine HCL 60 MG CAP PO SCH (08:03)
[2022-02-20] MEDS: DULoxetine HCL 30 MG CAP PO SCH (08:03)
[2022-02-20] MEDS: amLODIPine BESYLATE 5 MG TAB PO SCH (08:03)
[2022-02-20] MEDS: INSULIN ASPART PER UNIT SC SCH ×4 (08:54→20:25)
[2022-02-20] MEDS: VITAMIN B COMPLEX TAB PO SCH (12:41)
--- NOTE | 2022-02-20 13:26 | Hospitalist Progress Note ---
Date of Service February 20, 2022 Assessment & Plan (1) Pneumonia: Plan: Patient presents with cough productive of greenish-yellow sputum, started on doxycycline and prednisone taper, continued to worsen and presented to the ED. In the outpatient clinic, she was negative for RSV/COVID/influenza A and B. At admission, respiratory panel negative. Admitting CTA chest: Negative for PE, suggestive of patchy bilateral airspace opacities, more on right lower lobe. Suggestive of pneumonia. Rule out aspiration pneumonitis. sputum culture positive for luther-sensitive pseudomonas Speech path saw her and recommends aspiration precautions including alternating solids and liquids, HOB>30 degrees at all times and small frequent meals, sitting upright for 30 minutes with each meal. Incentive spirometer use encouraged, however, patient is not motivated. She is clinically improved and is tolerating oral antibiotics without issue. Some crackles heard on exam are likely reflective of atelectasis with her very limited mobility. (2) Hypoxemia: Plan: as noted above. (3) DM II (diabetes mellitus, type II), controlled: Plan: A1c of 7.4 in the spring 2021, A1c this admission 6.3, continue with sliding scale, glycemic pharmacy on board. (4) Fatigue: Plan: PT/OT working with her. Encouraged to get out of bed q shift. Max assist. SNF recommended at discharge. (5) Physical deconditioning: Plan: Plan for SNF for rehab. Medically cleared when she is able to get a bed. DVT proph: heparin DNR/DNI Dispo- to SNF after the weekend. [facility] and Anticipated Discharge Date Admission Date: February 15, 2022 Subjective Patient seen and examined at bedside as a follow-up of pneumonia, failure of outpatient treatment. She is fatigued today and slow to respond to questioning. Appears depressed and agrees she may be depressed when I asked her She reports this is because no one has come to see her She doesn't know the last time she spoke with her daughter, and states she is not picking up the phone. 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 Review of Systems Review of Systems: All systems reviewed negative except as indicated above. Physical Exam Physical Exam: CONSTITUTIONAL: [facility]NWD, vitals as above, generally appears elderly and fatigued. NAD EYES: pupils are round and equal bilaterally, normal conjunctivae, no scleral icterus ENT: external ear and nose normal, MMM NECK: trachea midline RESPIRATORY: poor respiratory effort, crackles bilaterally, no increased work of breathing. CARDIOVASCULAR: regular rate and rhythm, S1 and 2 heard without murmurs, gallops or rubs, no JVD, no peripheral edema CHEST: inspection of chest was normal GASTROINTESTINAL: soft, nontender, ND MUSCULOSKELETAL: strength 5/5 throughout, head is normocephalic and atraumatic SKIN: warm and dry, no rashes noted NEUROLOGIC: CN 2-12 grossly intact, no sensory deficit, normal cognition, normal speech, no tremor PSYCHIATRIC: alert cooperative and oriented to person, place and time. flat affect, eyes looking down, language grossly intact, recent and remote memory grossly intact Results & Data Results & Data ([facility]) Vital Signs (Past 12 Hours) Vital Signs Temp Pulse Pulse Resp BP BP Pulse Ox 02/20/22 11:33 36.9 C 65 18 148/55 H 95 02/20/22 07:30 74 02/20/22 07:30 02/20/22 07:16 36.6 C 78 18 163/74 H 98 02/20/22 03:47 36.7 C 70 18 120/71 94 O2 Del Method O2 Flow Rate 02/20/22 11:33 Nasal Cannula 4 02/20/22 07:30 02/20/22 07:30 Nasal Cannula 4 02/20/22 07:16 Nasal Cannula 4 02/20/22 03:47 Nasal Cannula Laboratory Results Short CBC 02/20/22 Range/Units 06:11 WBC 9.77 (4.8-10.8) K/ul Hgb 9.4 L (12.0-16.0) g/dl Hct 30.1 L (34.1-44.9) % Plt Count 146 (130-400) K/uL BMP 02/20/22 06:11 Sodium 144 Potassium 3.8 Chloride 109 H Carbon Dioxide 34 H BUN 31 H Creatinine 0.77 Glucose 117 H Calcium 9.0 Medications Administered Current Inpatient Medications Acetaminophen (Acetaminophen 325 Mg Tab) 650 mg PO Q4H PRN PRN Reason: Moderate Pain/FEVER Stop: 03/17/22 17:27 Last Admin: 02/17/22 20:12 Dose: 650 mg Albuterol (Albut/Ipratrop 3mg/0.5mg Neb 3 Ml Vial) 3 ml NEB QIDR PRN; Protocol PRN Reason: SOB/wheezing Stop: 03/20/22 06:59 Allopurinol (Allopurinol 100 Mg Tab) 100 mg PO DAILY [facility] Stop: 03/18/22 08:59 Last Admin: 02/20/22 08:02 Dose: 100 mg Amlodipine Besylate (Amlodipine Besylate 5 Mg Tab) 10 mg PO DAILY [facility] Stop: 03/18/22 08:59 Last Admin: 02/20/22 08:03 Dose: 10 mg Aspirin (Aspirin 81 Mg Ectab) 81 mg PO DAILY [facility] Stop: 03/18/22 08:59 Last Admin: 02/20/22 08:02 Dose: 81 mg Atorvastatin Calcium (Atorvastatin 40 Mg Tab) 40 mg PO HS [facility] Stop: 03/17/22 20:59 Last Admin: 02/19/22 22:08 Dose: 40 mg Buspirone HCl (Buspirone 5 Mg Tab) 5 mg PO AMHS [facility] Stop: 03/17/22 20:59 Last Admin: 02/20/22 08:02 Dose: 5 mg Ciprofloxacin (Ciprofloxacin 500 Mg Tab) 500 mg PO BID [facility] Stop: 02/26/22 20:59 Last Admin: 02/20/22 08:02 Dose: 500 mg Dextrose (Dextrose 50% 50 Ml Syringe) 25 - 50 ml IV UD PRN; Protocol PRN Reason: Hypoglycemia Protocol Stop: 03/17/22 17:27 Duloxetine HCl (Duloxetine Hcl 30 Mg Cap) 30 mg PO DAILY [facility] Stop: 03/18/22 08:59 Last Admin: 02/20/22 08:03 Dose: 30 mg Duloxetine HCl (Duloxetine Hcl 60 Mg Cap) 60 mg PO DAILY [facility] Stop: 03/18/22 08:59 Last Admin: 02/20/22 08:03 Dose: 60 mg Ferrous Sulfate (Ferrous Sulfate 325 Mg Tab) 325 mg PO BIDM [facility] Stop: 03/18/22 07:59 Last Admin: 02/19/22 17:38 Dose: 325 mg Fluticasone/Vilanterol (Fluticasone/Vilanterol 200/25mcg 14 Puffs/Inhaler) 1 puffs INH DAILY [facility] Stop: 03/18/22 08:59 Last Admin: 02/20/22 08:03 Dose: 1 puffs Furosemide (Furosemide 20 Mg Tab) 20 mg PO DAILY [facility] Stop: 03/18/22 08:59 Last Admin: 02/20/22 08:03 Dose: 20 mg Gabapentin (Gabapentin 100 Mg Cap) 100 mg PO TID [facility] Stop: 03/17/22 20:59 Last Admin: 02/20/22 12:42 Dose: 100 mg Glucagon (Glucagon For Inj 1 Mg Vial) 1 mg SQ UD PRN; Protocol PRN Reason: Hypoglycemia Protocol Stop: 03/17/22 17:27 Glucose (Glucose 40% Gel 15 Gm Tube) 15 - 30 gm PO UD PRN; Protocol PRN Reason: Hypoglycemia Protocol Stop: 03/17/22 17:27 Glucose (Glucose 10 Tab/Tube) 4 - 8 tab PO UD PRN; Protocol PRN Reason: Hypoglycemia Treatment Stop: 03/17/22 17:27 Guaifenesin (Guaifenesin 600 Mg Tabcr) 1,200 mg PO Q12 [facility] Stop: 03/17/22 20:59 Last Admin: 02/20/22 08:02 Dose: 1,200 mg Heparin Sodium (Porcine) (Heparin Sod 5,000 Unit/0.5 Ml Vial) 5,000 units SQ Q12 [facility] Stop: 03/17/22 20:59 Last Admin: 02/20/22 08:03 Dose: 5,000 units Insulin Aspart (Insulin Aspart Per Unit) 0 units SC [facility] Stop: 03/17/22 17:27 Last Admin: 02/20/22 12:39 Dose: 4 units Insulin Glargine (Lantus Per Unit Charge) 0 units SQ HS [facility]; Protocol Stop: 03/18/22 20:59 Last Admin: 02/19/22 22:00 Dose: 6 units Isosorbide Mononitrate (Isosorbide [place] Extended Rel 60 Mg Tabcr) 60 mg PO DAILY [facility] Stop: 03/18/22 08:59 Last Admin: 02/20/22 08:02 Dose: 60 mg Lactobacillus Acidophilus (Advanced Probiotic 1250 Mg Capsule) 2 cap PO DAILY [facility] Stop: 03/20/22 08:59 Last Admin: 02/20/22 08:02 Dose: 2 cap Lidocaine (Lidocaine 5% 1 Patch) 1 patch TD QAM [facility] Stop: 03/18/22 08:59 Last Admin: 02/20/22 08:03 Dose: 1 patch Losartan Potassium (Losartan Potassium 50 Mg Tab) 50 mg PO DAILY [facility] Stop: 03/18/22 08:59 Last Admin: 02/20/22 08:03 Dose: 50 mg Metoprolol Tartrate (Metoprolol Tartrate 50 Mg Tab) 50 mg PO AMHS [facility] Stop: 03/17/22 20:59 Last Admin: 02/20/22 08:02 Dose: 50 mg Miconazole Nitrate (Miconazole Nitrate Powder 43 Gm) 1 appln TOP BID [facility] Stop: 03/17/22 20:59 Last Admin: 02/20/22 08:03 Dose: 1 appln Miscellaneous (Carbohydrates For Hypoglycemia ) 15 - 30 gm PO UD PRN PRN Reason: Hypoglycemia Protocol Stop: 03/17/22 17:27 Miscellaneous (Remove Lidoderm Patch) 1 each N/A DAILY@2100 [facility] Stop: 03/18/22 20:59 Last Admin: 02/19/22 22:13 Dose: 1 each Miscellaneous Information (Pharmacy Glycemic Mgmt Consult) 1 each N/A UD PRN PRN Reason: Consult Stop: 03/17/22 17:27 Montelukast Sodium (Montelukast Sodium 10 Mg Tablet) 10 mg PO HS [facility] Stop: 03/17/22 20:59 Last Admin: 02/19/22 22:11 Dose: 10 mg Ondansetron HCl (Ondansetron Inj 2 Mg/Ml 2 Ml Vial) 4 mg IV Q4H PRN PRN Reason: Nausea And Vomiting Stop: 03/17/22 17:27 Last Admin: 02/16/22 20:26 Dose: 4 mg Pantoprazole Sodium (Pantoprazole 40 Mg Tab) 40 mg PO DAILY [facility] Stop: 03/18/22 08:59 Last Admin: 02/20/22 08:02 Dose: 40 mg Polyethylene Glycol (Polyethylene (Miralax) 17 Gm Pack) 17 gm PO HS [facility] Stop: 03/17/22 20:59 Last Admin: 02/19/22 22:13 Dose: 17 gm Vitamin B Complex (Vitamin B Complex Tab) 1 tab PO DAILY@1200 [facility] Stop: 03/18/22 11:59 Last Admin: 02/20/22 12:41 Dose: 1 tab
[2022-02-20] MEDS: LANTUS PER UNIT CHARGE SQ SCH (20:47)
[2022-02-20] MEDS: ATORVASTATIN 40 MG TAB PO SCH (21:02)
[2022-02-20] MEDS: MONTELUKAST SODIUM 10 MG TABLET PO SCH (21:03)
[2022-02-20] MEDS: POLYETHYLENE (MIRALAX) 17 GM PACK PO SCH (21:03)
[2022-02-21] MEDS: CIPROFLOXACIN 500 MG TAB PO SCH (08:18)
[2022-02-21] MEDS: amLODIPine BESYLATE 5 MG TAB PO SCH (08:18)
[2022-02-21] MEDS: FUROSEMIDE 20 MG TAB PO SCH (08:18)
[2022-02-21] MEDS: METOPROLOL TARTRATE 50 MG TAB PO SCH (08:18)
[2022-02-21] MEDS: PANTOprazole 40 MG TAB PO SCH (08:18)
[2022-02-21] MEDS: ADVANCED PROBIOTIC 1250 MG CAPSULE PO SCH (08:18)
[2022-02-21] MEDS: FLUTICASONE/VILANTEROL 200/25MCG 14 PUFFS/INHALER INH SCH (08:18)
[2022-02-21] MEDS: LOSARTAN POTASSIUM 50 MG TAB PO SCH (08:18)
[2022-02-21] MEDS: ISOSORBIDE MONO EXTENDED REL 60 MG TABCR PO SCH (08:18)
[2022-02-21] MEDS: ASPIRIN 81 MG ECTAB PO SCH (08:18)
[2022-02-21] MEDS: guaiFENesin 600 MG TABCR PO SCH (08:19)
[2022-02-21] MEDS: DULoxetine HCL 30 MG CAP PO SCH (08:19)
[2022-02-21] MEDS: busPIRone 5 MG TAB PO SCH (08:19)
[2022-02-21] MEDS: allopurinoL 100 MG TAB PO SCH (08:19)
[2022-02-21] MEDS: DULoxetine HCL 60 MG CAP PO SCH (08:19)
[2022-02-21] MEDS: HEPARIN SOD 5,000 UNIT/0.5 ML VIAL SQ SCH (08:19)
[2022-02-21] MEDS: GABAPENTIN 100 MG CAP PO SCH (08:19)
[2022-02-21] MEDS: LIDOCAINE 5% 1 PATCH TD SCH (08:20)
[2022-02-21] MEDS: MICONAZOLE NITRATE POWDER 43 GM TOP SCH (08:28)
[2022-02-21] MEDS: INSULIN ASPART PER UNIT SC SCH ×2 (08:28→12:29)
--- NOTE | 2022-02-21 08:28 | Pharmacy Report ---
Pharmacy Glycemic Short Note 2 - Date of Service February 21, 2022 - Glycemic Short BSG Results (Last 24 hours): 02/20/22 02/20/22 02/20/22 11:47 16:52 20:01 POC Glucose 179 H 139 H 144 H 02/21/22 07:57 POC Glucose 154 H OUTPATIENT ANTIDIABETIC REGIMEN: * Lantus 10 units HS * Novolog 4 units PC * Metformin 500 qAM * A1c 6.3 (02/2022) ASSESSMENT: 02/21: * Blood sugars at goal last 72 hours, continue insulin as below * Likely DC back to SNF today 02/18: * BSGs [phone] mg/dL yesterday * Fasting this AM 168 mg/dl with 4 units of basal, will increase scale as this is above goal * Continue current novolog parameters 02/17: * BSGs acceptable, [phone]/dL the last 24h. Patient received 8 units of basal and 3 units bolus insulin yesterday. * Ordered a diet, however with decreased PO the lat 2 days. Continues on antibiotics. * Given decreased PO, will reduce basal insulin per scale tonight. No change to Novolog. 02/16: * 86 yr old Female with T2DM admitted 02/15/22 for PNA. * TDD of insulin yesterday was 13 (of which 10 units was basal) * FBSG today is 98 - 104 mg/dl. Loosened Novolog parameters using a stress of 2 d/t poor renal function and oral diet PLAN FOR INPATIENT GLYCEMIC CONTROL: * Hold outpatient oral diabetes medications * Basal insulin * Lantus HS per scale, 6-8 units * Bolus insulin * NovoLog per scale ACHS or Q6hrs while NPO * Goal Range: Low 110 mg/dL - High 150 mg/dL * Correction Factor: 35 mg/dL/unit * Nutritional / Prandial insulin per carb ratio of 1 unit per 12 grams CHO consumed
[2022-02-21] MEDS: VITAMIN B COMPLEX TAB PO SCH (12:32)
--- NOTE | 2022-02-21 12:53 | Discharge Summary ---
Discharge Summary Date of Service ADMIT: 02/15/2022 DISCHARGE: 02/21/2022 Notes For Next Care Provider Please repeat chest x-ray in 4 week time to ensure complete resolution of pneumonia She has significant physical deconditioning and needs extensive rehab She appears poorly motivated with a depressed affect and may benefit from additional treatment for depression Medication Changes From Visit Ciprofloxacin 500mg PO BID x 5 days Admission HPI Per Admitting Provider This is an 86 yo F from [facility] with PMhx of moderate persistent asthma, CAD, DM type II, CKD, anemia of chronic disease who presented with worsening shortness of breath, wheezing, cough, chest congestion last week with chills fever and body aches. [facility] and was found to have desaturation to the mid 80s which improved with increase of oxygen from 2 to 4 L. At baseline she has been on supplemental O2 of 2-2.5 L for about the past year. In outpatient clinic, she was negative for RSV, COVID and influenza A and B. Chest x-ray initially showed no active disease. She was given Solu-Medrol with some improvement over the next day and then began to have worsening symptoms. Repeat chest x-ray showed possible early bilateral pneumonia and she was started on doxycycline 100 mg BID and prednisone taper. Upon follow-up today with PCP, patient continued to be lethargic with dyspnea and required oxygen titration up to 4 L due to hypoxia. Pt reports having persistent cough with expectorated sputum which is green-yellow in color. She denies hemoptysis. Pt notes feeling like she can just not cough it out. Her energy level is very low compared to normal. Pt denies issues with chewing/swallowing food, and denies recent episodes of vomiting. Normally she is on an easy to chew diet at facility. Pt denies any other acute complaints. She admits to having family who smoked but she never smoked herself. Admission Exam Per Admitting Provider Physical Exam: General: awake, alert, no apparent distress, + fatigued Head: Normocephalic, atraumatic ENT: PERRL, EOMI, no pharyngeal exudate, mucous membranes moist Chest: On 4 L via NC with sats 98-99%, coarse wet cough, rales throughout, + expiratory wheeze faint with cough Cardiac: Regular rate and rhythm, no murmur, no JVD, normal peripheral pulses, good capillary refill Abdominal: NABS x 4 quadrants, soft, nondistended, nontender to palpation, no rebound or guarding Extremities: Normal inspection, +nonpitting peripheral edema, no erythema, calfs nontender to palpation Psych: Normal mood and affect Neuro: AAO x 3, strength intact bilaterally and rated 5/5, no motor deficits, speech is clear, no peripheral sensory deficits Principal Dx & Hospital Course #1 = Principal Diagnosis (1) Pneumonia: (2) Hypoxemia: (3) DM II (diabetes mellitus, type II), controlled: (4) Fatigue: (5) Physical deconditioning: Plan 86 yo F with a history of diabetes and asthma was admitted for acute respiratory failure secondary aspiration pneumonia. At baseline she used 2.5LPM oxygen supplementation, and on admission she was using 4LPM given in response to prehospital desaturation of oxygen levels to the mid-80s. She was placed on cefepime and flagyl. COVID and flu swabs were negative. Nebulized bronchodilators were continued. CT chest with contrast revealed bronchial wall thickening suggestive of bronchitis with left greater than right mucous plugging. Patchy bilaterally airspace opacities were most pronounced in the right lower lobe. Evidence of cirrhosis was also seen on imaging and will require outpatient follow-up if not already being monitored. Flagyl was stopped on 02/18 and she was continued on cefepime. Speech therapy evaluated her and made recommendations. There was no evidence of suspected aspiration per their assessment. Esophageal dysfunction was present, and a modified pureed diet was recommended. She notably underwent a video swallow study in June of 2021 revealing mild oropharyngeal dysphagia with signs and symptoms of esophageal dysfunction. She continued to improve, and oxygen was weaned as tolerated. Notably she had a depressed affect and was not getting out of bed much with questionable motivation to do so. Pseudomonas was isolated from sputum, and she was given a short course of oral ciprofloxacin to complete. SNF was recommended for additional rehab, and she was sent there in stable condition with close primary care follow-up recommended. Significant physical deconditioning was present. Discharge Exam CONSTITUTIONAL: [facility], vitals as above, generally appears elderly and fatigued. NAD EYES: pupils are round and equal bilaterally, normal conjunctivae, no scleral icterus ENT: external ear and nose normal, MMM NECK: trachea midline RESPIRATORY: poor respiratory effort, crackles bilaterally, no increased work of breathing. CARDIOVASCULAR: regular rate and rhythm, S1 and 2 heard without murmurs, gallops or rubs, no JVD, no peripheral edema CHEST: inspection of chest was normal GASTROINTESTINAL: soft, nontender, ND MUSCULOSKELETAL: strength 5/5 throughout, head is normocephalic and atraumatic SKIN: warm and dry, no rashes noted NEUROLOGIC: CN 2-12 grossly intact, no sensory deficit, normal cognition, normal speech, no tremor PSYCHIATRIC: alert cooperative and oriented to person, place and time. flat affect, eyes looking down, language grossly intact, recent and remote memory grossly intact Updated Medication List Medication Instructions Recorded Confirmed Type Antifungal Powd 2% 1 applic topical BID 02/15/22 02/15/22 History acetaminophen 325 mg tablet 650 mg PO Q4 PRN Fever Or Pain 02/15/22 02/15/22 History (Tylenol) acetaminophen 500 mg tablet 500 mg PO QID 02/15/22 02/15/22 History albuterol sulfate 90 mcg/actuation 2 puff inhalation QID PRN 02/15/22 02/15/22 History aerosol inhaler Shortness Of Breath Or Wheezing allopurinol 100 mg tablet 100 mg PO DAILY 02/15/22 02/15/22 History amlodipine 10 mg tablet 10 mg PO DAILY 02/15/22 02/15/22 History aspirin 81 mg tablet,delayed 81 mg PO DAILY 02/15/22 02/15/22 History release atorvastatin 40 mg tablet 40 mg PO HS 02/15/22 02/15/22 History buspirone 5 mg tablet 5 mg PO AMHS 02/15/22 02/15/22 History calcium carbonate 600 mg-vitamin 1 tab PO DAILY 02/15/22 02/15/22 History D3 10 mcg (400 unit) tablet (Calcium 600 + D(3)) camphor 4 %-methyl salicylate 30 1 applic topical QID 02/15/22 02/15/22 History %-menthol 10 % topical cream (Bengay Ultra Strength) camphor 4 %-methyl salicylate 30 1 applic topical BID 02/15/22 02/15/22 History %-menthol 10 % topical cream (Muscle Rub Ultra-Strength) duloxetine 30 mg capsule,delayed 30 mg PO DAILY 02/15/22 02/15/22 History release duloxetine 60 mg capsule,delayed 60 mg PO DAILY 02/15/22 02/15/22 History release ferrous sulfate 325 mg (65 mg 325 mg PO AMHS 02/15/22 02/15/22 History iron) tablet fluticasone propionate 230 1 puff inhalation AMHS 02/15/22 02/15/22 History mcg-salmeterol 21 mcg/actuation HFA inhaler (Advair HFA) furosemide 20 mg tablet 20 mg PO DAILY 02/15/22 02/15/22 History gabapentin 100 mg capsule 100 mg PO TID 02/15/22 02/15/22 History guaifenesin 100 mg/5 mL oral 200 mg PO Q4H PRN Cough 02/15/22 02/15/22 History liquid (Siltussin SA) insulin aspart U-100 100 unit/mL 4 unit subcut PC 02/15/22 02/15/22 History subcutaneous solution (Novolog U-100 Insulin aspart) insulin glargine 100 unit/mL (3 10 unit subcut HS 02/15/22 02/15/22 History mL) subcutaneous pen (Lantus Solostar U-100 Insulin) ipratropium 0.5 mg-albuterol 3 mg 3 ml inhalation QID 02/15/22 02/15/22 History (2.5 mg base)/3 mL nebulization soln ipratropium 0.5 mg-albuterol 3 mg 3 ml inhalation QID PRN Shortness 02/15/22 02/15/22 History (2.5 mg base)/3 mL nebulization Of Breath Or Wheezing soln isosorbide mononitrate 60 mg 60 mg PO DAILY 02/15/22 02/15/22 History tablet,extended release 24 hr lidocaine 4 % topical patch 1 patch topical DAILY 02/15/22 02/15/22 History losartan 50 mg tablet 50 mg PO DAILY 02/15/22 02/15/22 History meclizine 25 mg tablet 25 mg PO Q8 PRN .DIZZYNESS 02/15/22 02/15/22 History melatonin 3 mg tablet 3 mg PO HS 02/15/22 02/15/22 History metformin 500 mg tablet 500 mg PO QAM 02/15/22 02/15/22 History metoprolol tartrate 50 mg tablet 50 mg PO AMHS 02/15/22 02/15/22 History mineral oil-isopropyl myristat 1 applic topical BID 02/15/22 02/15/22 History lotion montelukast 10 mg tablet 10 mg PO HS 02/15/22 02/15/22 History nitroglycerin 0.4 mg sublingual 0.4 mg sublingual DIRECTED 02/15/22 02/15/22 History tablet (Nitrostat) omeprazole 40 mg capsule,delayed 40 mg PO DAILY 02/15/22 02/15/22 History release ondansetron HCl 4 mg tablet 4 mg PO Q6H PRN Nausea 02/15/22 02/15/22 History polyethylene glycol 3350 17 gram 17 g PO HS 02/15/22 02/15/22 History oral powder packet vitamin B complex 1 tab PO DAILY 02/15/22 02/15/22 History ciprofloxacin HCl 500 mg tablet 500 mg PO BID #10 tabs 02/21/22 Rx Hospital Stay Data Consultations 02/15/22 14:41 ED Decision to Admit Stat Diagnostic Imagining Performed 02/15/22 12:35 CT angio chest PE protocol Stat Pending Results Patient Have Any Pending Studies at Discharge: No Discharge Instructions Given to Patient (Per Discharging Provider) Please take all medications as instructed on discharge list below. Please consider repeat chest imaging in 4 weeks to ensure complete resolution of pneumonia. This may be ordered by your primary care physician on follow-up. Please follow up with your primary care physician within one week of hospital discharge to ensure you are still doing well after returning home Please take the incentive spirometer with you to the facility and continue to use this to exercise your lungs. Get out of bed as often as possible with assistance as movement will help you feel better. It was a pleasure taking care of you! Please call if you have any questions or problems. You can reach a [facility] hospitalist on duty at [facility] 24 hours a day by calling [phone]. Take care of yourself. Shannon Hitchcock, DO [facility] Hospitalist Total Time Total Time Spent Total Time Spent (In Minutes): 60
== END 2022-02-21 13:38 | DRG 177 ==
LOC: ED 10:01 → 4W 15:06 → SUATTDRO 15:06 → 4W 16:54
DX: I25.2 Old myocardial infarction; Z95.5 Presence of coronary angioplasty implant and graft; Z88.6 Allergy status to analgesic agent; R53.83 Other fatigue; J69.0 Pneumonitis due to inhalation of food and vomit; Z88.8 Allergy status to other drugs, medicaments and biological substances; J98.11 Atelectasis; Z99.81 Dependence on supplemental oxygen; I50.32 Chronic diastolic (congestive) heart failure; J44.9 Chronic obstructive pulmonary disease, unspecified; Z66 Do not resuscitate; Z79.4 Long term (current) use of insulin; B96.5 Pseudomonas (aeruginosa) (mallei) (pseudomallei) as the cause of diseases classified elsewhere; E11.51 Type 2 diabetes mellitus with diabetic peripheral angiopathy without gangrene; E11.22 Type 2 diabetes mellitus with diabetic chronic kidney disease; J45.40 Moderate persistent asthma, uncomplicated; J96.21 Acute and chronic respiratory failure with hypoxia; N18.30 Chronic kidney disease, stage 3 unspecified; Z79.82 Long term (current) use of aspirin; K74.60 Unspecified cirrhosis of liver

== ENCOUNTER 2022-05-30 09:08 | Inpatient (IN) ==
--- NOTE | 2022-05-30 10:07 | XRay Report ---
SINGLE VIEW CHEST CLINICAL HISTORY: Atypical chest pain. ' FINDINGS: An AP, portable, upright chest radiograph is compared to study dated 04/22/2022 and correlat ed with chest CT dated 02/15/2022. The heart is enlarged noting atherosclerotic calcification of the thoracic aorta. The pulmonary vasculature is noncongested. Enlargement of the central pulmonary vesse ls suggests pulmonary artery hypertension. Chronic interstitial thickening and nodularity is similar to previous. Foci of parenchymal scarring are seen throughout both lungs. No superimposed airspace co nsolidation or large pleural effusion is identified. No pneumothorax is seen. The skeletal structures are osteopenic. The bony thorax is grossly intact. Cholecystectomy clips are noted in the right uppe r quadrant. IMPRESSION: Cardiomegaly and chronic parenchymal changes as above with no acute cardiopulmonary abnor mality. ACT 112: Negative or not required by law. Electronically signed by: Ravi Schwarz M.D. 05/30/2022 10:06 AM
[2022-05-30 10:18] LABS: Basophils # (auto) 0.06 K/uL (0-0.2); Basophils % (auto) 0.4 %; Eosinophils # (auto) 0.97 K/uL (0-0.50); Hematocrit (blood only) 32.3 % (37.0-47.0); Hemoglobin 10.3 g/dl (12.0-16.0); Immature Granulocytes # (auto) 0.06 K/uL (0.01-0.20); Immature Granulocytes % (auto) 0.4 %; Lymphocytes # (auto) 1.85 K/uL (1.2-3.4); Lymphocytes % (auto) 11.5 %; Mean Corpuscular Hemoglobin 30.6 pg (25.0-34.0); Mean Corpuscular Hgb Conc 31.9 g/dL (32.0-36.0); Mean Corpuscular Volume 95.8 fL (80.0-100.0); Mean Platelet Volume 11.2 fL (9.4-12.4); Monocytes # (auto) 0.99 K/uL (0.11-0.59); Monocytes % (auto) 6.1 %; Neutrophils % (auto) 75.6 %; Platelet Count 165 K/uL (130-400); RDW Coefficient of Variation 13.8 % (11.5-14.5); RDW Standard Deviation 48.6 fL (36.4-46.3); Red Blood Count 3.37 M/uL (4.20-5.40); White Blood Count 16.13 K/ul (4.8-10.8)
[2022-05-30 10:41] LABS: Albumin Globulin Ratio 0.9 (0.9-2); Albumin Level 3.6 gm/dl (3.4-5.0); BUN Creatinine Ratio 28.8 (10-20); Bilirubin,Total 0.4 mg/dl (0.2-1.0); Calcium 9.6 mg/dl (8.6-10.3); Creatinine Clr Calc Pharmacy 49.7 ml/min; Est GFR (African American) 78.5 ml/min; Est GFR (Non-African American) 67.7 ml/min; Globulin 3.8 gm/dl (2.5-4.0); Potassium 4.1 mmol/L (3.5-5.1); Total Protein 7.4 gm/dl (6.0-8.3)
[2022-05-30 10:45] LABS: Troponin I High Sensitivity 6.6 pg/ml (0-14)
--- NOTE | 2022-05-30 10:51 | Emergency Department Note ---
Impression & Plan Pneumonia, Chest pain ED Provider Note NAME: ASHLI WRIGHT AGE: 86 SEX: F : 1935 ARRIVES VIA: Ambulance INFORMANT: Patient, ED PROVIDER(S): Regino Whiting DO CHIEF COMPLAINT: chest pain HPI: Patient is an 86-year-old female who presents to the ER for midsternal ches t pain/pressure. She admits to a history of diabetes, COPD chronically on 3 L nasal cannula, carotid stenosis as well as venous insufficiency. She notes that the symptoms started yesterday and have been waxing and waning. When she woke up this morning has been present fairly constantly but still comes and goes intermittently. Patient denies any belly pain, nausea, vomiting or diarrhea. No dysuria, urgency or frequency. No other exacerbating or remitting factors. Patient was given aspirin and nitro prior to arrival. Symptoms did improve with nitro. PAST MEDICAL HISTORY:See Below PAST SURGICAL HISTORY:See Below FAMILY HISTORY:See Below SOCIAL HISTORY:See Below HOME MEDICATIONS:See Below ALLERGIES:See Below VITALS:See Below PHYSICAL EXAMINATION: GENERAL: Sitting up in bed, alert, well appearing, well nourished, no distress, non-toxic EYE EXAM: normal conjunctiva. PERRL and EOM's grossly intact. CHEST: Mild reproducible anterior chest wall pain OROPHARYNX: mucous membranes are moist NECK: supple, no nuchal rigidity, no adenopathy, non-tender LUNGS: Clear to auscultation. Normal chest wall mechanics HEART: no murmurs, S1 normal and S2 normal ABDOMEN: abdomen soft, non-tender, normo-active bowel sounds, no masses, no rebound or guarding. UPPER EXTREMITIES: upper extremities are grossly normal. LOWER EXTREMITIES: No pitting edema. NEURO EXAM: Normal sensorium, cranial nerves II-XII grossly intact, normal speech, no gross weakness of arms, no gross weakness of legs. MEDICAL DECISION MAKING: Patient is an 86-year-old female who presents the ER for chest pain. IV was established blood work was obtained. Chest pain is reproducible on exam. Labs show leukocytosis of 16,000. Mild anemia 10. D-dimer was elevated at 1400. BMP along with LFTs bilirubin and lipase was unremarkable. Troponin was negative symptoms that started last night and then reoccurred this morning. COVID was negative. Chest x-ray was nondiagnostic. CT angio of the chest showed worsening infiltrates patient was given IV antibiotics. She is updated bedside. Discussed with the hospitalist for further evaluation management and treatment. Triage Nursing notes reviewed. Limited review of prior medical records performed Vital Signs: reviewed and remarkable for no significant abnormalities Differential diagnosis: Cardiac ischemia, aortic dissection, pulmonary embolism, pneumothorax, pneumonia, pericarditis, myocarditis, esophageal rupture, GERD, cholecystitis, pancreatitis, musculoskeletal, as well as other pathologies. ER treatment provided: See below Diagnostics interpreted by me include EKG and cardiac monitoring as listed below: -Cardiac Monitoring: An order was placed for continuous cardiac monitoring. The monitor shows a rate of 92 with sinus rhythm. -ECG: Sinus rhythm rate of 95 Normal axis No PVCs Nonspecific ST wave changes in the lateral results QTc 467 -Laboratory studies:Interpreted by me as stated above in MDM and shown below. Imaging studies: Xrays: As interpreted by me: Portable AP upright 1 view of the chest shows no pneumonia CTs show: CT angio of the chest shows pneumonitis Consultation(s): As described in MDM Procedures:none Critical Care: None Past Med/Surg History Medical History Abnormal CT scan of lung Acute exacerbation of chronic obstructive pulmonary disease Acute on chronic respiratory failure with hypoxia Acute respiratory acidosis Acute worsening of stage 3 chronic kidney disease Ambulatory dysfunction Anemia Anxiety Anxiety (02/04/11) Arteriosclerotic coronary artery disease (02/04/11) Arthritis Asthma Asthma Breathlessness CAD (coronary artery disease) Carotid stenosis Cerebrovascular disease Chronic diastolic heart failure Chronic obstructive pulmonary disease CKD (chronic kidney disease), stage III Cough Degenerative disc disease Diabetes mellitus, type 2 Diabetic neuropathy Diabetic peripheral neuropathy Diverticulosis (02/04/11) DVT prophylaxis Dyslipidemia Encephalopathy due to infection GERD (gastroesophageal reflux disease) Hyperlipidemia Hyperlipidemia Hypertension Hypertension Hypoxia Leukocytosis Morbid obesity with BMI of 45.0-49.9, adult (02/04/11) Multifocal pneumonia Myocardial Infarction OVER 10 YEARS AGO Peripheral edema Physical deconditioning Pleural effusion Pneumonia Pressure sore ON COCCYX (FROM SITTING) Restless leg syndrome Type 2 diabetes mellitus (02/04/11) Unsteady gait when walking Urinary incontinence Venous insufficiency Weakness Surgical History History of anesthesia reaction SLOW TO WAKE UP History of cataract surgery History of colonoscopy History of esophagogastroduodenoscopy (EGD) History of heart artery stent OVER 10 YEARS AGO/1 STENT (FOLLOWS DR. 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 Beliefs That Will Affect Care: None marital status: / marital status details: [email or web address] Current Living Situation: Prison Current Living Situation Comment: [facility] current occupational status: retired How many Children do You have: 2 Feels Safe at Home: Yes Assistive Devices: Walker Allergies Allergies Allergy/AdvReac Type Severity Reaction Status Date / Time azelastine Allergy Intermediate elevated bp Verified 02/15/22 17:02 trospium Allergy Intermediate hives Verified 04/23/22 01:36 azithromycin Allergy Mild Rash Verified 04/23/22 01:36 citalopram Allergy Unknown UNKNOWN Verified 04/23/22 01:36 chlorpheniramine AdvReac Intermediate ELEVATED BP Verified 04/23/22 01:36 Corticosteroids AdvReac Intermediate ELEVATED BP Verified 04/23/22 01:36 (Glucocorticoids) fexofenadine AdvReac Intermediate ELEVATED BP Verified 04/23/22 01:36 fluticasone AdvReac Intermediate ELEVATED BP Verified 04/23/22 01:36 hydrocodone AdvReac Intermediate ELEVATED BP Verified 04/23/22 01:36 magnesium salicylate AdvReac Intermediate ELEVATED BP Verified 04/23/22 01:36 salicylates AdvReac Intermediate ELEVATED BP Verified 04/23/22 01:36 lactose AdvReac Abdominal Unverified 04/23/22 01:36 Pain Home Meds Home Medications Medication Instructions Recorded Confirmed Antifungal Powd 2% 1 applic topical BID 02/15/22 05/30/22 acetaminophen 325 mg tablet 650 mg PO Q4 PRN Fever Or Pain 02/15/22 05/30/22 (Tylenol) acetaminophen 500 mg tablet 500 mg PO QID 02/15/22 05/30/22 albuterol sulfate 90 mcg/actuation 2 puff inhalation QID PRN 02/15/22 05/30/22 aerosol inhaler Shortness Of Breath Or Wheezing allopurinol 100 mg tablet 100 mg PO DAILY 02/15/22 05/30/22 amlodipine 10 mg tablet 10 mg PO DAILY 02/15/22 05/30/22 aspirin 81 mg tablet,delayed 81 mg PO DAILY 02/15/22 05/30/22 release atorvastatin 40 mg tablet 40 mg PO HS 02/15/22 05/30/22 buspirone 5 mg tablet 5 mg PO AMHS 02/15/22 05/30/22 calcium carbonate 600 mg-vitamin 1 tab PO DAILY 02/15/22 05/30/22 D3 10 mcg (400 unit) tablet (Calcium 600 + D(3)) camphor 4 %-methyl salicylate 30 1 applic topical QID 02/15/22 05/30/22 %-menthol 10 % topical cream (Bengay Ultra Strength) camphor 4 %-methyl salicylate 30 1 applic topical BID 02/15/22 05/30/22 %-menthol 10 % topical cream (Muscle Rub Ultra-Strength) duloxetine 60 mg capsule,delayed 60 mg PO DAILY 02/15/22 05/30/22 release ferrous sulfate 325 mg (65 mg 325 mg PO AMHS 02/15/22 05/30/22 iron) tablet fluticasone propionate 230 1 puff inhalation AMHS 02/15/22 05/30/22 mcg-salmeterol 21 mcg/actuation HFA inhaler (Advair HFA) furosemide 20 mg tablet 20 mg PO DAILY 02/15/22 05/30/22 gabapentin 100 mg capsule 200 mg PO TID 02/15/22 05/30/22 guaifenesin 100 mg/5 mL oral 200 mg PO Q4H PRN Cough 02/15/22 05/30/22 liquid (Siltussin SA) insulin aspart U-100 100 unit/mL 4 unit subcut PC 02/15/22 05/30/22 subcutaneous solution (Novolog U-100 Insulin aspart) insulin glargine 100 unit/mL (3 10 unit subcut HS 02/15/22 05/30/22 mL) subcutaneous pen (Lantus Solostar U-100 Insulin) ipratropium 0.5 mg-albuterol 3 mg 3 ml inhalation QID 02/15/22 05/30/22 (2.5 mg base)/3 mL nebulization soln isosorbide mononitrate 60 mg 60 mg PO DAILY 02/15/22 05/30/22 tablet,extended release 24 hr lidocaine 4 % topical patch 1 patch topical DAILY 02/15/22 05/30/22 losartan 50 mg tablet 50 mg PO DAILY 02/15/22 05/30/22 meclizine 25 mg tablet 25 mg PO Q8 PRN .DIZZYNESS 02/15/22 05/30/22 melatonin 3 mg tablet 3 mg PO HS 02/15/22 05/30/22 metformin 500 mg tablet 500 mg PO QAM 02/15/22 05/30/22 metoprolol tartrate 50 mg tablet 50 mg PO BID 02/15/22 05/30/22 mineral oil-isopropyl myristat 1 applic topical BID 02/15/22 05/30/22 lotion montelukast 10 mg tablet 10 mg PO HS 02/15/22 05/30/22 nitroglycerin 0.4 mg sublingual 0.4 mg sublingual DIRECTED 02/15/22 05/30/22 tablet (Nitrostat) omeprazole 40 mg capsule,delayed 40 mg PO DAILY 02/15/22 05/30/22 release ondansetron HCl 4 mg tablet 4 mg PO Q6H PRN Nausea 02/15/22 05/30/22 polyethylene glycol 3350 17 gram 17 g PO HS 02/15/22 05/30/22 oral powder packet vitamin B complex 1 tab PO DAILY 02/15/22 05/30/22 Lactobacillus acidophilus 1 tab PO DAILY 04/23/22 05/30/22 lanolin-mineral oil lotion 1 applic topical DAILY 05/30/22 05/30/22 Previous Rx's Medication Instructions Recorded ciprofloxacin HCl 500 mg tablet 500 mg PO BID #10 tabs 02/21/22 famotidine 20 mg tablet 20 mg PO BID #20 tabs 04/22/22 sucralfate 100 mg/mL oral 10 ml PO QID #420 mL 04/22/22 suspension (Carafate) Results & Data (ED) Vital Signs Vital Signs - 24 hr 05/30/22 09:16 05/30/22 09:16 05/30/22 09:16 Temperature 36.9 C 36.9 C Temperature Source Oral Oral Pulse Rate 94 H Pulse Rate from SpO2 Sensor Respiratory Rate 18 18 Respiratory Effort / Characteristics Non-Labored Spontaneous Non-Labored Spontaneous Respiratory Depth Normal Normal Respiratory Pattern Regular Regular Blood Pressure 182/125 H Blood Pressure [Left Arm] 182/125 H Blood Pressure Mean 144 Blood Pressure Mean [Left Arm] 144 Pulse Oximetry 99 99 99 Oxygen Delivery Method Nasal Cannula Nasal Cannula Nasal Cannula Oxygen Flow Rate 3 3 3 Sepsis Recent Fever Within 48 Hours No Sepsis New/Unexplained Change in Mental Status No Sepsis Action Taken by Nursing No Action Required 05/30/22 09:38 05/30/22 09:41 05/30/22 10:00 Temperature Temperature Source Pulse Rate 98 H 98 H 94 H Pulse Rate from SpO2 Sensor 94 H Respiratory Rate 28 H Respiratory Effort / Characteristics Respiratory Depth Respiratory Pattern Blood Pressure Blood Pressure [Left Arm] Blood Pressure Mean Blood Pressure Mean [Left Arm] Pulse Oximetry 98 99 Oxygen Delivery Method Nasal Cannula Nasal Cannula Oxygen Flow Rate 3 3 Sepsis Recent Fever Within 48 Hours Sepsis New/Unexplained Change in Mental Status Sepsis Action Taken by Nursing 05/30/22 11:39 05/30/22 11:41 05/30/22 12:01 Temperature Temperature Source Pulse Rate 101 H 101 H 93 H Pulse Rate from SpO2 Sensor 101 H 100 H 93 H Respiratory Rate 30 H 32 H 27 H Respiratory Effort / Characteristics Respiratory Depth Respiratory Pattern Blood Pressure 196/82 H 195/66 H 127/93 Blood Pressure [Left Arm] Blood Pressure Mean 120 109 104 Blood Pressure Mean [Left Arm] Pulse Oximetry 99 99 98 Oxygen Delivery Method Nasal Cannula Nasal Cannula Nasal Cannula Oxygen Flow Rate 3 3 3 Sepsis Recent Fever Within 48 Hours Sepsis New/Unexplained Change in Mental Status Sepsis Action Taken by Nursing 05/30/22 12:36 Temperature Temperature Source Pulse Rate 92 H Pulse Rate from SpO2 Sensor 92 H Respiratory Rate 27 H Respiratory Effort / Characteristics Respiratory Depth Respiratory Pattern Blood Pressure 134/82 Blood Pressure [Left Arm] Blood Pressure Mean 99 Blood Pressure Mean [Left Arm] Pulse Oximetry 98 Oxygen Delivery Method Nasal Cannula Oxygen Flow Rate 3 Sepsis Recent Fever Within 48 Hours Sepsis New/Unexplained Change in Mental Status Sepsis Action Taken by Nursing Laboratory Data 05/30/22 09:45 05/30/22 09:45 Lab Results 05/30/22 05/30/22 05/30/22 Range/Units 09:45 09:45 09:46 WBC 16.13 H (4.8-10.8) K/ul RBC 3.37 L (4.20-5.40) M/uL Hgb 10.3 L (12.0-16.0) g/dl Hct 32.3 L (37.0-47.0) % MCV 95.8 (80.0-100.0) fL MCH 30.6 (25.0-34.0) pg MCHC 31.9 L (32.0-36.0) g/dL RDW Std Deviation 48.6 H (36.4-46.3) fL RDW Coeff of Rakesh 13.8 (11.5-14.5) % Plt Count 165 (130-400) K/uL MPV 11.2 (9.4-12.4) fL Immature Gran % (Auto) 0.4 % Neut % (Auto) 75.6 % Lymph % (Auto) 11.5 % [place] % (Auto) 6.1 % Eos % (Auto) 6.0 % Baso % (Auto) 0.4 % Neut # (Auto) 12.20 H (1.40-6.50) K/uL Lymph # (Auto) 1.85 (1.2-3.4) K/uL [place] # (Auto) 0.99 H (0.11-0.59) K/uL Eos # (Auto) 0.97 H (0-0.50) K/uL Baso # (Auto) 0.06 (0-0.2) K/uL Immature Gran # (Auto) 0.06 (0.01-0.20) K/uL D-Dimer (0-500) ug/L FEU Sodium 141 (136-145) mmol/L Potassium 4.1 (3.5-5.1) mmol/L Chloride 101 (98-107) mmol/L Carbon Dioxide 35 H (21-32) mmol/L Anion Gap 5 (3-11) BUN 23 (6-23) mg/dl Creatinine 0.80 (0.6-1.2) mg/dl Est Cr Clr Drug Dosing 49.7 ml/min Est GFR ( Amer) 78.5 ml/min Est GFR (Non-Af Amer) 67.7 ml/min BUN/Creatinine Ratio 28.8 H (10-20) Glucose 162 H (70-99(Fasting)) mg/dl Calcium 9.6 (8.6-10.3) mg/dl Total Bilirubin 0.4 (0.2-1.0) mg/dl AST 21 (13-39) U/L ALT 18 (7-52) U/L Alkaline Phosphatase 101 (34-104) U/L Troponin I High Sens 6.6 (0-14) pg/ml Total Protein 7.4 (6.0-8.3) gm/dl Albumin 3.6 (3.4-5.0) gm/dl Globulin 3.8 (2.5-4.0) gm/dl Albumin/Globulin Ratio 0.9 (0.9-2) Lipase 22 (11-82) U/L SARS-CoV-2, RNA, NAAT NEGATIVE (NEGATIVE) 05/30/22 Range/Units 09:46 WBC (4.8-10.8) K/ul RBC (4.20-5.40) M/uL Hgb (12.0-16.0) g/dl Hct (37.0-47.0) % MCV (80.0-100.0) fL MCH (25.0-34.0) pg MCHC (32.0-36.0) g/dL RDW Std Deviation (36.4-46.3) fL RDW Coeff of Rakesh (11.5-14.5) % Plt Count (130-400) K/uL MPV (9.4-12.4) fL Immature Gran % (Auto) % Neut % (Auto) % Lymph % (Auto) % [place] % (Auto) % Eos % (Auto) % Baso % (Auto) % Neut # (Auto) (1.40-6.50) K/uL Lymph # (Auto) (1.2-3.4) K/uL [place] # (Auto) (0.11-0.59) K/uL Eos # (Auto) (0-0.50) K/uL Baso # (Auto) (0-0.2) K/uL Immature Gran # (Auto) (0.01-0.20) K/uL D-Dimer 1470 H* (0-500) ug/L FEU Sodium (136-145) mmol/L Potassium (3.5-5.1) mmol/L Chloride (98-107) mmol/L Carbon Dioxide (21-32) mmol/L Anion Gap (3-11) BUN (6-23) mg/dl Creatinine (0.6-1.2) mg/dl Est Cr Clr Drug Dosing ml/min Est GFR ( Amer) ml/min Est GFR (Non-Af Amer) ml/min BUN/Creatinine Ratio (10-20) Glucose (70-99(Fasting)) mg/dl Calcium (8.6-10.3) mg/dl Total Bilirubin (0.2-1.0) mg/dl AST (13-39) U/L ALT (7-52) U/L Alkaline Phosphatase (34-104) U/L Troponin I High Sens (0-14) pg/ml Total Protein (6.0-8.3) gm/dl Albumin (3.4-5.0) gm/dl Globulin (2.5-4.0) gm/dl Albumin/Globulin Ratio (0.9-2) Lipase (11-82) U/L SARS-CoV-2, RNA, NAAT (NEGATIVE) Administered Medications Discontinued Medications Doxycycline Hyclate (Doxycycline Hyclate 100 Mg Cap) 100 mg PO NOW STA Stop: 05/30/22 12:15 Last Admin: 05/30/22 12:36 Dose: 100 mg Documented By: ADONAY Ceftriaxone Sodium (Rocephin) 2,000 mg in 70 mls @ 140 mls/hr IV NOW STA Stop: 05/30/22 12:43 Last Infusion: 05/30/22 13:25 Dose: 0 mls/hr Documented By: Admin: 05/30/22 12:36 Dose: 140 mls/hr Documented By: ADONAY Ioversol (Optiray 320 500ml) 120 ml IV ONCE ONE Stop: 05/30/22 11:29 Last Admin: 05/30/22 11:28 Dose: 120 ml Documented By: NAVJOT Morphine Sulfate (Morphine Sulfate 4 Mg/Ml 1 Ml Carp\Vial) 4 mg IV NOW STA Stop: 05/30/22 11:37 Last Admin: 05/30/22 11:44 Dose: 4 mg Documented By: ADONAY Ondansetron HCl (Ondansetron Inj 2 Mg/Ml 2 Ml Vial) 4 mg IV NOW STA Stop: 05/30/22 11:37 Last Admin: 05/30/22 11:42 Dose: 4 mg Documented By: [employer] Imaging Data Radiologist's Impression: Chest X-Ray 05/30/22 09:38 SINGLE VIEW CHEST CLINICAL HISTORY: Atypical chest pain. ' FINDINGS: An AP, portable, upright chest radiograph is compared to study dated 04/22/2022 and correlated with chest CT dated 02/15/2022. The heart is enlarged noting atherosclerotic calcification of the thoracic aorta. The pulmonary vasculature is noncongested. Enlargement of the central pulmonary vessels suggests pulmonary artery hypertension. Chronic interstitial thickening and nodularity is similar to previous. Foci of parenchymal scarring are seen throughout both lungs. No superimposed airspace consolidation or large pleural effusion is identified. No pneumothorax is seen. The skeletal structures are osteopenic. The bony thorax is grossly intact. Cholecystectomy clips are noted in the right upper quadrant. IMPRESSION: Cardiomegaly and chronic parenchymal changes as above with no acute cardiopulmonary abnormality. ACT 112: Negative or not required by law. Electronically signed by: Ravi Schwarz M.D. 05/30/2022 10:06 AM Chest CTA 05/30/22 10:51 CHEST CTA for PULMONARY ARTERIES CT DOSE: 594.06 mGy.cm HISTORY: positive d-dimer and pleuritic chest pain TECHNIQUE: Multiaxial CT images of the chest were performed following the intravenous administration of contrast to evaluate the pulmonary arteries. Maximal intensity projection images were also obtained. A dose lowering technique was utilized adhering to the principles of ALARA. COMPARISON STUDY: Chest CTA 02/15/2022. FINDINGS: Moderate calcified plaque within the normal caliber thoracic aorta. No evidence for an aortic dissection. There are severe coronary artery calcifications noted. Nondiagnostic evaluation of the majority of the subsegmental pulmonary arteries due to the motion artifact. Otherwise, no filling defects within the pulmonary arteries to suggest a pulmonary embolus. Cirrhotic liver with splenomegaly again noted. Trace perihepatic ascites. Small right and trace left pleural effusions. Normal thyroid gland. Normal caliber eso phagus. Cholecystectomy. The heart is top normal in size. No pericardial effusion. Stable prominent mediastinal and hilar lymph nodes. No acute fractures within the chest. No pneumothorax. Bibasilar bronchial wall thickening. Patchy groundglass airspace opacities within the left upper lobe are new from the prior study. There is improved aeration within the mid to lower lung zones compared the prior study. Scattered tree-in-bud nodular airspace opacities persist. Small areas consolidation within the lower lobes posteriorly are also similar to the prior study. IMPRESSION: 1. No evidence for a pulmonary embolus with limitations as described above. 2. Persistent bronchial wall thickening with patchy bilateral airspace opacities most pronounced within the left upper lobe and multiple scattered tree-in-bud nodular airspace opacities. The left upper lobe airspace opacities are new from the prior study. The remaining airspace opacities have slightly improved. 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 3. Small right and trace left pleural effusions have slightly progressed. 4. Cirrhosis with a small amount of perihepatic ascites. ACT 112: Negative or not required by law. Electronically signed by: Daniel Jarrett M.D. 05/30/2022 12:07 PM Discharge Plan Visit Data Chief Complaint: Chest Pain Stated Complaint: CHEST PAIN ED Provider: Regino Whiting Discharge Problem: Pneumonia, Chest pain Patient Disposition: Admitted As Inpatient Discharge Instructions Interventions: ED Discharge Assessment Last Done: 05/30/22 13:32
[2022-05-30 11:05] LABS: D Dimer 1470 ug/L FEU (0-500)
[2022-05-30] MEDS ORDERED: OPTIRAY 320 500ml IV ONE (11:28)
[2022-05-30] MEDS ORDERED: ONDANSETRON INJ 2 MG/ML 2 ML VIAL IV STA (11:36)
[2022-05-30] MEDS ORDERED: MoRPHine SULFATE 4 MG/ML 1 ML CARP\\VIAL IV STA (11:36)
--- NOTE | 2022-05-30 12:08 | CT Scan Report ---
CHEST CTA for PULMONARY ARTERIES CT DOSE: 594.06 mGy.cm HISTORY: positive d-dimer and pleuritic chest pain TECHNIQUE: Multiaxial CT images of the chest were performed following the intravenous administration of contrast to evaluate the pulmonary arteries. Maximal intensity projection images were also obtaine d. A dose lowering technique was utilized adhering to the principles of ALARA. COMPARISON STUDY: Chest CTA 02/15/2022. FINDINGS: Moderate calcified plaque within the normal caliber thoracic aorta. No evidence for an aort ic dissection. There are severe coronary artery calcifications noted. Nondiagnostic evaluation of the majority of the subsegmental pulmonary arteries due to the motion artifact. Otherwise, no filling de fects within the pulmonary arteries to suggest a pulmonary embolus. Cirrhotic liver with splenomegaly again noted. Trace perihepatic ascites. Small right and trace left pleural effusions. Normal thyroid gland. Normal caliber esophagus. Cholecystectomy. The heart is top normal in size. No pericardial ef fusion. Stable prominent mediastinal and hilar lymph nodes. No acute fractures within the chest. No p neumothorax. Bibasilar bronchial wall thickening. Patchy groundglass airspace opacities within the le ft upper lobe are new from the prior study. There is improved aeration within the mid to lower lung z ones compared the prior study. Scattered tree-in-bud nodular airspace opacities persist. Small areas consolidation within the lower lobes posteriorly are also similar to the prior study. IMPRESSION: 1. No evidence for a pulmonary embolus with limitations as described above. 2. Persistent bronchial wall thickening with patchy bilateral airspace opacities most pronounced with in the left upper lobe and multiple scattered tree-in-bud nodular airspace opacities. The left upper lobe airspace opacities are new from the prior study. The remaining airspace opacities have slightly improved. 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 3. Small right and trace left pleural effusions have slightly progressed. 4. Cirrhosis with a small amount of perihepatic ascites. ACT 112: Negative or not required by law. Electronically signed by: Daniel Jarrett M.D. 05/30/2022 12:07 PM
[2022-05-30] MEDS ORDERED: cefTRIAXone SODIUM 2,000 MG/70 ML BAG IV STA (12:14)
[2022-05-30] MEDS ORDERED: DOXYCYCLINE HYCLATE 100 MG CAP PO STA (12:14)
--- NOTE | 2022-05-30 12:48 | History & Physical Report ---
Date of Service May 30, 2022 Assessment & Plan (1) Pneumonia: (2) Chronic respiratory failure with hypoxia: (3) Moderate persistent asthma: (4) Diabetes mellitus with diabetic nephropathy: (5) CAD (coronary artery disease): Plan This is an 86-year-old female with significant past medical history of T2DM, chronic diastolic CHF, CAD status post MELVI to LAD in 2009, chronic hypoxemic respiratory failure on 3L of O2 chronically, Moderate-persistent asthma, HTN, HLD, history of CVA, carotid artery stenosis, CKD stage III, cirrhosis, hiatal hernia, GERD, diabetic neuropathy, anxiety who presents to ED secondary to chest pain x 1 day. JORDAN Pneumonia; Acute on Chronic Pneumonitis Chronic hypoxic resp failure Moderate persistent asthma w/o exac Leukocytosis Admit to med tele Pt does not met Sepsis criteria but does have leukocytosis with wbc 16k IV cefepime, doxy and Flagyl for aspiration coverage MRSA screen, if positive will add vanco Sputum culture pulm toilet with nebs, spirometer and muccinex sputum culture History of swallow study in June 2021 revealing mild oropharyngeal dysphagia and signs and symptoms of esophageal dysfunction Patient is currently on her baseline 3 L of oxygen obtain procalcitonin last hospitalized in Feb 2022 for ASP PNA; also hospitalized 06/2021, 03/2021, 01/2021 for PNA consult pulm given recurrent pneumonia and hospitalizations for any further recs Leukocytosis likely in setting of PNA trend daily pt with hx of UTI, will obtain Urine Pleuritic Chest Pain Chest pain is pleuritic in nature, CTA with evidence of pneumonia and negative for PE Initial troponin negative, EKG without ST change Will cycle troponin x2 for completeness Last echocardiogram 2020 revealed preserved EF with mildly dilated left atrium, moderate AV sclerosis and grade 1 diastolic dysfunction We will repeat echocardiogram for completeness Toradol 15 mg x 1 now, give cautiously in setting of CKD CKD-3 Baseline creatinine 1.0 avoid nephrotoxic agents, monitor pt did receive 1 dose of Toradol for pleuritic chest pain monitor closely T2DM, insulin-dependent Lantus/novolog per protocol a1c 5.5 05/06/22 CAD HTN HLD Continue metoprolol, imdur, amlodipine, lasix and losartan pt did not have a.m. meds, will give all home bp meds now Diabetic peripheral neuropathy continue gabapentin and duloxetine gabapentin recently increased to 200mg tid GERD Continue PPI and pepcid pt also takes carafate follows GI for Hiatal hernia Anemia baseline hgb ~ 10 10.3/32.3 today likely in setting of chronic disease Depression with anxiety continue buspar and duloxetine DVT prophylaxis: Lovenox Dispo: Patient to remain hospitalized, likely to return to [facility] correction upon discharge, PT/OT pt is bedbound at baseline utilizing susie lift DNR/DNI PCP: Dr. Maya A total of 90 minutes was spent with greater than 50% of that time personally viewing all current laboratory work and diagnostic imaging studies obtained in the ED. Additionally, I was able to view the patients past medication reconciliation and history with direct visualization in the patients chart. Included in the time above, a portion of that time was spent assessing the patient while discussing and collaborating with specialists, if necessary, and making medical decision making on treatment plan. All of the above was collaborated with Dr. Paredes . Please see addendum for further details. History of Present Illness Chief Complaint: Chest pain x 1 day and worsened cough. Primary Care Provider: [facility] This is an 86-year-old female with significant past medical history of T2DM, chronic diastolic CHF, CAD status post MELVI to LAD in 2009, chronic hypoxemic respiratory failure on 3L of O2 chronically, Moderate-persistent asthma, HTN, HLD, history of CVA, carotid artery stenosis, CKD stage III, cirrhosis, hiatal hernia, GERD, diabetic neuropathy, anxiety who presents to ED secondary to chest pain x 1 day. And worsening cough. She currently resides at [facility]. She is bedbound/wheelchair-bound at baseline and requires Susie lift. She does not walk. She typically wears 3 L of oxygen at baseline. Yesterday she noticed left-sided chest pain that was specifically worse with taking a deep breath. Pain was constant, wax and wane in severity, was nonradiating and she has experienced similar pain in the past. She is unsure what happened the last time she had similar pain. She also feels that she may have a slight increase in her cough with increased production. She occasionally can produce discolored mucus but typically it stops her, "throat." She always complains of feeling cold but denies any documented fever or sweats. She denies any lightheadedness, dizziness, worsening shortness of breath at baseline, nausea, vomiting, abdominal pain, melena, hematochezia or hematuria. Over the last days she has complained of dry heaving. Her last bowel movement was 2 days ago and was normal for her. She does have history of recurrent UTIs where typically she experiences dysuria. She denies any current dysuria or increased urgency or frequency. She was sent to ED for evaluation for chest pain. Chest pain is pleuritic in nature as it is worse with taking a deep breath and with coughing. It is not worse with physical movement. Unable to a tell if worse with exertion as she does not exert herself. In ED patient remained hemodynamically stable although she was hypertensive. She did not take any of her morning medications. She was not requiring more oxygen than her baseline. Lab work significant for leukocytosis at 16.13, H&H 10.3 and 32.3, elevated D-dimer 1470, BUN/creatinine stable at 23 and 0.80, troponin WNL and SARS-CoV-2 negative. Chest CTA negative for PE but did reveal persistent bronchial wall thickening with patchy bilateral airspace opacities most pronounced in the left upper lobe and multiple scattered tree-in-bud nodular airspace opacities. The left upper lobe airspace opacities are new which favors a acute on chronic atypical pneumonitis. Small right and trace left pleural effusions have slightly progressed. Allergies Allergy/AdvReac Type Severity Reaction Status Date / Time azelastine Allergy Intermediate elevated bp Verified 02/15/22 17:02 trospium Allergy Intermediate hives Verified 04/23/22 01:36 azithromycin Allergy Mild Rash Verified 04/23/22 01:36 citalopram Allergy Unknown UNKNOWN Verified 04/23/22 01:36 chlorpheniramine AdvReac Intermediate ELEVATED BP Verified 04/23/22 01:36 Corticosteroids AdvReac Intermediate ELEVATED BP Verified 04/23/22 01:36 (Glucocorticoids) fexofenadine AdvReac Intermediate ELEVATED BP Verified 04/23/22 01:36 fluticasone AdvReac Intermediate ELEVATED BP Verified 04/23/22 01:36 hydrocodone AdvReac Intermediate ELEVATED BP Verified 04/23/22 01:36 magnesium salicylate AdvReac Intermediate ELEVATED BP Verified 04/23/22 01:36 salicylates AdvReac Intermediate ELEVATED BP Verified 04/23/22 01:36 lactose AdvReac Abdominal Unverified 04/23/22 01:36 Pain Home Medications Medication Instructions Recorded Confirmed Type Antifungal Powd 2% 1 applic topical BID 02/15/22 05/30/22 History acetaminophen 325 mg tablet 650 mg PO Q4 PRN Fever Or Pain 02/15/22 05/30/22 History (Tylenol) acetaminophen 500 mg tablet 500 mg PO QID 02/15/22 05/30/22 History albuterol sulfate 90 mcg/actuation 2 puff inhalation QID PRN 02/15/22 05/30/22 History aerosol inhaler Shortness Of Breath Or Wheezing allopurinol 100 mg tablet 100 mg PO DAILY 02/15/22 05/30/22 History amlodipine 10 mg tablet 10 mg PO DAILY 02/15/22 05/30/22 History aspirin 81 mg tablet,delayed 81 mg PO DAILY 02/15/22 05/30/22 History release atorvastatin 40 mg tablet 40 mg PO HS 02/15/22 05/30/22 History buspirone 5 mg tablet 5 mg PO AMHS 02/15/22 05/30/22 History calcium carbonate 600 mg-vitamin 1 tab PO DAILY 02/15/22 05/30/22 History D3 10 mcg (400 unit) tablet (Calcium 600 + D(3)) camphor 4 %-methyl salicylate 30 1 applic topical QID 02/15/22 05/30/22 History %-menthol 10 % topical cream (Bengay Ultra Strength) camphor 4 %-methyl salicylate 30 1 applic topical BID 02/15/22 05/30/22 History %-menthol 10 % topical cream (Muscle Rub Ultra-Strength) duloxetine 60 mg capsule,delayed 60 mg PO DAILY 02/15/22 05/30/22 History release ferrous sulfate 325 mg (65 mg 325 mg PO AMHS 02/15/22 05/30/22 History iron) tablet fluticasone propionate 230 1 puff inhalation AMHS 02/15/22 05/30/22 History mcg-salmeterol 21 mcg/actuation HFA inhaler (Advair HFA) furosemide 20 mg tablet 20 mg PO DAILY 02/15/22 05/30/22 History gabapentin 100 mg capsule 200 mg PO TID 02/15/22 05/30/22 History guaifenesin 100 mg/5 mL oral 200 mg PO Q4H PRN Cough 02/15/22 05/30/22 History liquid (Siltussin SA) insulin aspart U-100 100 unit/mL 4 unit subcut PC 02/15/22 05/30/22 History subcutaneous solution (Novolog U-100 Insulin aspart) insulin glargine 100 unit/mL (3 10 unit subcut HS 02/15/22 05/30/22 History mL) subcutaneous pen (Lantus Solostar U-100 Insulin) ipratropium 0.5 mg-albuterol 3 mg 3 ml inhalation QID 02/15/22 05/30/22 History (2.5 mg base)/3 mL nebulization soln isosorbide mononitrate 60 mg 60 mg PO DAILY 02/15/22 05/30/22 History tablet,extended release 24 hr lidocaine 4 % topical patch 1 patch topical DAILY 02/15/22 05/30/22 History losartan 50 mg tablet 50 mg PO DAILY 02/15/22 05/30/22 History meclizine 25 mg tablet 25 mg PO Q8 PRN .DIZZYNESS 02/15/22 05/30/22 History melatonin 3 mg tablet 3 mg PO HS 02/15/22 05/30/22 History metformin 500 mg tablet 500 mg PO QAM 02/15/22 05/30/22 History metoprolol tartrate 50 mg tablet 50 mg PO BID 02/15/22 05/30/22 History mineral oil-isopropyl myristat 1 applic topical BID 02/15/22 05/30/22 History lotion montelukast 10 mg tablet 10 mg PO HS 02/15/22 05/30/22 History nitroglycerin 0.4 mg sublingual 0.4 mg sublingual DIRECTED 02/15/22 05/30/22 History tablet (Nitrostat) omeprazole 40 mg capsule,delayed 40 mg PO DAILY 02/15/22 05/30/22 History release ondansetron HCl 4 mg tablet 4 mg PO Q6H PRN Nausea 02/15/22 05/30/22 History polyethylene glycol 3350 17 gram 17 g PO HS 02/15/22 05/30/22 History oral powder packet vitamin B complex 1 tab PO DAILY 02/15/22 05/30/22 History ciprofloxacin HCl 500 mg tablet 500 mg PO BID #10 tabs 02/21/22 05/30/22 Rx famotidine 20 mg tablet 20 mg PO BID #20 tabs 04/22/22 05/30/22 Rx sucralfate 100 mg/mL oral 10 ml PO QID #420 mL 04/22/22 05/30/22 Rx suspension (Carafate) Lactobacillus acidophilus 1 tab PO DAILY 04/23/22 05/30/22 History lanolin-mineral oil lotion 1 applic topical DAILY 05/30/22 05/30/22 History Past Med/Surg History Medical History (Updated 05/30/22 @ 15:22 by Wendi Payton PA-C) Abnormal CT scan of lung Acute exacerbation of chronic obstructive pulmonary disease Acute on chronic respiratory failure with hypoxia Acute respiratory acidosis Acute worsening of stage 3 chronic kidney disease Ambulatory dysfunction Anemia Anxiety Anxiety (02/04/11) Arteriosclerotic coronary artery disease (02/04/11) Arthritis Asthma Asthma Breathlessness CAD (coronary artery disease) Carotid stenosis Cerebrovascular disease Chronic diastolic heart failure Chronic obstructive pulmonary disease CKD (chronic kidney disease), stage III Cough Degenerative disc disease Diabetes mellitus, type 2 Diabetic neuropathy Diabetic peripheral neuropathy Diverticulosis (02/04/11) DVT prophylaxis Dyslipidemia Encephalopathy due to infection GERD (gastroesophageal reflux disease) Hyperlipidemia Hyperlipidemia Hypertension Hypertension Hypoxia Leukocytosis Morbid obesity with BMI of 45.0-49.9, adult (02/04/11) Multifocal pneumonia Myocardial Infarction OVER 10 YEARS AGO Peripheral edema Physical deconditioning Pleural effusion Pneumonia Pressure sore ON COCCYX (FROM SITTING) Restless leg syndrome Type 2 diabetes mellitus (02/04/11) Unsteady gait when walking Urinary incontinence Venous insufficiency Weakness Surgical History History of anesthesia reaction SLOW TO WAKE UP History of cataract surgery History of colonoscopy History of esophagogastroduodenoscopy (EGD) History of heart artery stent OVER 10 YEARS AGO/1 STENT (FOLLOWS DR. NARAYANAN) History of tooth extraction Hx laparoscopic cholecystectomy Hx of tubal ligation Family History Other Adopted Cancer Social History Smoking Status: Never smoker Second Hand Exposure: No; Hx Alcohol Use: No Hx Substance Use: No Preferred Language: Japanese Communication Ability: Effective Gut Puller Required: No Beliefs That Will Affect Care: None marital status: / marital status details: dmitriy Current Living Situation: Residential Current Living Situation Comment: [facility] current occupational status: retired How many Children do You have: 2 Feels Safe at Home: Yes Assistive Devices: Walker Review of Systems Review of Systems: All systems reviewed & are unremarkable except as noted in HPI & below Physical Exam Physical Exam: Constitutional: Elderly, F, lying in Bed on 3L of O2 via NC,nontoxic appearing, vitals as above, NAD, pleasant, conversing easily Head: Normocephalic, Atraumatic Eyes: PERRL, conjunctivae normal, anicteric sclerae ENMT: external ear and nose normal, oropharynx normal dry membranes Neck: trachea midline, no thyromegaly normal visual inspection Respiratory: +pain with deep inspiration, normal respiratory effort, lungs clear to auscultation, no wheeze, rales, rhonchi. Normal insp/exp effort, no accessory muscle use Cardiovascular: RRR, no murmur, no edema Vessels: no JVD or carotid bruit Chest: normal inspection of chest, chest pain not reproducible Abdomen: normal bowel sounds, soft, nontender, no hepatosplenomegaly Musculoskeletal: no cyanosis or clubbing,AROm x 4, strength 3/5 b/l lower ext, 4/5 upper ext Skin: no rashes, warm and dry normal turgor Neurologic: PERRL, EOMI, accommodation nl, no face palsy, no dysarthria CN's II-XI intact bilaterally and moves all extremities Psychiatric: A+Ox3, euthymic affect Lymphatic: no cervical or axillary lymphadenopathy : deferred Results & Data Results & Data Vital Signs (Past 12 Hours) Vital Signs Temp Pulse Resp BP BP Pulse Ox O2 Del Method 05/30/22 11:39 101 H 30 H 196/82 H 99 Nasal Cannula 05/30/22 10:00 94 H 28 H 99 Nasal Cannula 05/30/22 09:41 98 H 05/30/22 09:38 98 H 98 Nasal Cannula 05/30/22 09:16 36.9 C 18 182/125 H 99 Nasal Cannula 05/30/22 09:16 99 Nasal Cannula 05/30/22 09:16 36.9 C 94 H 18 182/125 H 99 Nasal Cannula O2 Flow Rate 05/30/22 11:39 3 05/30/22 10:00 3 05/30/22 09:41 05/30/22 09:38 3 05/30/22 09:16 3 05/30/22 09:16 3 05/30/22 09:16 3 Diagnostic Findings Chest X-Ray 05/30/22 09:38 SINGLE VIEW CHEST CLINICAL HISTORY: Atypical chest pain. ' FINDINGS: An AP, portable, upright chest radiograph is compared to study dated 04/22/2022 and correlated with chest CT dated 02/15/2022. The heart is enlarged noting atherosclerotic calcification of the thoracic aorta. The pulmonary vasculature is noncongested. Enlargement of the central pulmonary vessels suggests pulmonary artery hypertension. Chronic interstitial thickening and nodularity is similar to previous. Foci of parenchymal scarring are seen throughout both lungs. No superimposed airspace consolidation or large pleural effusion is identified. No pneumothorax is seen. The skeletal structures are osteopenic. The bony thorax is grossly intact. Cholecystectomy clips are noted in the right upper quadrant. IMPRESSION: Cardiomegaly and chronic parenchymal changes as above with no acute cardiopulmonary abnormality. ACT 112: Negative or not required by law. Electronically signed by: Ravi Schwarz M.D. 05/30/2022 10:06 AM Chest CTA 05/30/22 10:51 CHEST CTA for PULMONARY ARTERIES CT DOSE: 594.06 mGy.cm HISTORY: positive d-dimer and pleuritic chest pain TECHNIQUE: Multiaxial CT images of the chest were performed following the intravenous administration of contrast to evaluate the pulmonary arteries. Maximal intensity projection images were also obtained. A dose lowering technique was utilized adhering to the principles of ALARA. COMPARISON STUDY: Chest CTA 02/15/2022. FINDINGS: Moderate calcified plaque within the normal caliber thoracic aorta. No evidence for an aortic dissection. There are severe coronary artery calcifications noted. Nondiagnostic evaluation of the majority of the subsegmental pulmonary arteries due to the motion artifact. Otherwise, no filling defects within the pulmonary arteries to suggest a pulmonary embolus. Cirrhotic liver with splenomegaly again noted. Trace perihepatic ascites. Small right and trace left pleural effusions. Normal thyroid gland. Normal caliber esophagus. Cholecystectomy. The heart is top normal in size. No pericardial effusion. Stable prominent mediastinal and hilar lymph nodes. No acute fractures within the chest. No pneumothorax. Bibasilar bronchial wall thickening. Patchy groundglass airspace opacities within the left upper lobe are new from the prior study. There is improved aeration within the mid to lower lung zones compared the prior study. Scattered tree-in-bud nodular airspace opacities persist. Small areas consolidation within the lower lobes posteriorly are also similar to the prior study. IMPRESSION: 1. No evidence for a pulmonary embolus with limitations as described above. 2. Persistent bronchial wall thickening with patchy bilateral airspace opacities most pronounced within the left upper lobe and multiple scattered tree-in-bud nodular airspace opacities. The left upper lobe airspace opacities are new from the prior study. The remaining airspace opacities have slightly improved. 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 3. Small right and trace left pleural effusions have slightly progressed. 4. Cirrhosis with a small amount of perihepatic ascites. ACT 112: Negative or not required by law. Electronically signed by: Daniel Jarrett M.D. 05/30/2022 12:07 PM Medications Administered Medication List Discontinued Medications Doxycycline Hyclate (Doxycycline Hyclate 100 Mg Cap) 100 mg PO NOW STA Stop: 05/30/22 12:15 Last Admin: 05/30/22 12:36 Dose: 100 mg Documented By: ADONAY Ceftriaxone Sodium (Rocephin) 2,000 mg in 70 mls @ 140 mls/hr IV NOW STA Stop: 05/30/22 12:43 Last Infusion: 05/30/22 13:25 Dose: 0 mls/hr Documented By: Admin: 05/30/22 12:36 Dose: 140 mls/hr Documented By: ADONAY Ioversol (Optiray 320 500ml) 120 ml IV ONCE ONE Stop: 05/30/22 11:29 Last Admin: 05/30/22 11:28 Dose: 120 ml Documented By: NAVJOT Morphine Sulfate (Morphine Sulfate 4 Mg/Ml 1 Ml Carp\\Vial) 4 mg IV NOW STA Stop: 05/30/22 11:37 Last Admin: 05/30/22 11:44 Dose: 4 mg Documented By: ADONAY Ondansetron HCl (Ondansetron Inj 2 Mg/Ml 2 Ml Vial) 4 mg IV NOW STA Stop: 05/30/22 11:37 Last Admin: 05/30/22 11:42 Dose: 4 mg Documented By: ADONAY ECG Rate (beats per minute): 95 Rhythm: normal sinus Additional Comments: no ST or T wave change COVID-19 Results Results COVID-19 Adm Lab Results: RBC 3.37 M/uL (4.20-5.40) L 05/30/22 WBC 16.13 K/ul (4.8-10.8) H 05/30/22 Hgb 10.3 g/dl (12.0-16.0) L 05/30/22 Hct 32.3 % (37.0-47.0) L 05/30/22 Plt Count 165 K/uL (130-400) 05/30/22 Neutrophils (%) (Auto) 75.6 % 05/30/22 Lymphocytes (%) (Auto) 11.5 % 05/30/22 Monocytes # (Auto) 0.99 K/uL (0.11-0.59) H 05/30/22 Eosinophils # (Auto) 0.97 K/uL (0-0.50) H 05/30/22 Immature Granulocyte % (Auto) 0.4 % 05/30/22 Neutrophils # (Auto) 12.20 K/uL (1.40-6.50) H 05/30/22 Lymphocytes # (Auto) 1.85 K/uL (1.2-3.4) 05/30/22 Monocytes # (Auto) 0.99 K/uL (0.11-0.59) H 05/30/22 Eosinophils # (Auto) 0.97 K/uL (0-0.50) H 05/30/22 Basophils # (Auto) 0.06 K/uL (0-0.2) 05/30/22 Immature Granulocyte # (Auto) 0.06 K/uL (0.01-0.20) 3 Na 141 mmol/L (136-145) 05/30/22 K 4.1 mmol/L (3.5-5.1) 05/30/22 Cl 101 mmol/L (98-107) 05/30/22 CO2 35 mmol/L (21-32) H 05/30/22 Anion Gap 5 (3-11) 05/30/22 BUN 23 mg/dl (6-23) 05/30/22 Creatinine 0.80 mg/dl (0.6-1.2) 05/30/22 BUN/Creatinine Ratio 28.8 (10-20) H 05/30/22 Glucose Level 162 mg/dl (70-99(Fasting)) H 05/30/22 Ca 9.6 mg/dl (8.6-10.3) 05/30/22 Total Bilirubin 0.4 mg/dl (0.2-1.0) 05/30/22 AST/SGOT 21 U/L (13-39) 05/30/22 ALT/SGPT 18 U/L (7-52) 05/30/22 Alkaline Phosphatase 101 U/L (34-104) 05/30/22 Total Protein 7.4 gm/dl (6.0-8.3) 05/30/22 Albumin 3.6 gm/dl (3.4-5.0) 05/30/22 Globulin 3.8 gm/dl (2.5-4.0) 05/30/22 Albumin/Globulin Ratio 0.9 (0.9-2) 05/30/22 D-Dimer 1470 ug/L FEU (0-500) H* 05/30/22 SARS-CoV-2, RNA, NAAT NEGATIVE (NEGATIVE) 05/30/22 Chest X-Ray 05/30/22 Code Status & VTE Plan Code Status DNR/DNI Supervising Physician Co-Signing Physician Notes Attending addendum: The patient was seen and examined in emergency room She was brought in from [facility] with complaints of left-sided chest and shoulder pain associated with minimal shortness of breath and cough. She has had dry hives but no documented temperature She tried nitro x3 at the facility without any improvement of the pain In the ER she still has the pain during examination On examination Lying in bed with discomfort due to chest pain Hemodynamically stable, afebrile and no tachycardia but tachypnea of 25/min Chest-decreased breath sounds both sides with crackles on the left Heart-S1-S2 regular Abdomen-benign Extremities-no edema Her admission labs, imaging studies and EKG reviewed Notably she has high white counts of 16.[address] evidence of pneumonitis involving the left upper lobe She was started with intravenous Rocephin and doxycycline and pain medications was administered to Doubt any ACS Her other significant medical condition remains reasonably stable She is mostly bedbound at the facility Agree with assessment and plan as outlined above by Marie Paredes (1) Pneumonia Laterality: unspecified laterality Lung location: unspecified part of lung Pneumonia type: due to unspecified organism Qualified Code(s): J18.9 - Pneumonia, unspecified organism
[2022-05-30] MEDS ORDERED: amLODIPine BESYLATE 5 MG TAB PO ONE (13:29)
[2022-05-30] MEDS ORDERED: LOSARTAN POTASSIUM 50 MG TAB PO STA (13:29)
[2022-05-30] MEDS ORDERED: METOPROLOL TARTRATE 50 MG TAB PO STA (13:29)
[2022-05-30] MEDS ORDERED: ISOSORBIDE MONO EXTENDED REL 60 MG TABCR PO STA (13:29)
[2022-05-30] MEDS ORDERED: KETOROLAC TROMETHAMINE 15 MG/ML VIAL IV ONE (14:12)
--- NOTE | 2022-05-30 15:11 | Electrocardiogram Report ---
Test Reason : Blood Pressure : / mmHG Vent. Rate : 095 BPM Atrial Rate : 095 BPM P-R Int : 192 ms QRS Dur : 082 ms QT Int : 372 ms P-R-T Axes : 055 014 049 degrees QTc Int : 467 ms Poor data quality, interpretation may be adversely affected Normal sinus rhythm Cannot rule out Anterior infarct , age undetermined Abnormal ECG When compared with ECG of 22-APR-2022 17:30, No significant change was found Confirmed by Brody Contreras ([id number]) on 05/30/2022 3:11:25 PM Referred By: Confirmed By:Brody Contreras
[2022-05-30] MEDS ORDERED: ALUMINUM/MAGNESIUM SUSP 30 ML UDC PO PRN (15:34)
[2022-05-30] MEDS ORDERED: CARBOHYDRATES FOR HYPOGLYCEMIA PO PRN (15:34)
[2022-05-30] MEDS ORDERED: GLUCOSE 10 TAB/TUBE PO PRN (15:34)
[2022-05-30] MEDS ORDERED: POLYETHYLENE (MIRALAX) 17 GM PACK PO PRN (15:34)
[2022-05-30] MEDS ORDERED: MAGNESIUM HYDROXIDE SUSP 30 ML UDC PO PRN (15:34)
[2022-05-30] MEDS ORDERED: GLUCAGON FOR INJ 1 MG VIAL SQ PRN (15:34)
[2022-05-30] MEDS ORDERED: ONDANSETRON INJ 2 MG/ML 2 ML VIAL IV PRN (15:34)
[2022-05-30] MEDS ORDERED: GLUCOSE 40% GEL 15 GM TUBE PO PRN (15:34)
[2022-05-30] MEDS ORDERED: DEXTROSE 50% 50 ML SYRINGE IV PRN (15:34)
[2022-05-30] MEDS ORDERED: [UNRECOGNIZED DRUG - OTHER] TOP SCH (15:34)
[2022-05-30] MEDS ORDERED: CEFEPIME 2,000 MG/20 ML VIAL ONE (16:21)
[2022-05-30] MEDS: GABAPENTIN 100 MG CAP PO SCH ×2 (16:36→21:30)
[2022-05-30] MEDS: CEFEPIME 2,000 MG in SYRINGE 0 ML IV SCH (16:36)
[2022-05-30] MEDS: ACETAMINOPHEN 500 MG TAB PO SCH ×2 (16:37→21:31)
[2022-05-30] MEDS: metroNIDAZOLE 500 MG/100 ML BAG IV SCH (16:37)
[2022-05-30] MEDS: TROLAMINE SALICYLATE 10% CRM 255 APPLN/85 GM TUBE EXT SCH ×2 (16:38→21:34)
[2022-05-30] MEDS: SUCRALFATE 1 GM/10 ML UDC PO SCH ×2 (16:40→21:33)
[2022-05-30] MEDS ORDERED: ALBUT/IPRATROP 3MG/0.5MG NEB 3 ML VIAL INH SCH (17:00)
--- NOTE | 2022-05-30 17:04 | Pulmonary Consultation ---
Date of Consultation May 30, 2022 Assessment & Plan (1) Chronic pulmonary aspiration: (2) Esophageal dysmotility: (3) Chronic respiratory failure with hypoxia, on home O2 therapy: (4) Weak cough: (5) Positive sputum culture for Pseudomonas: Plan 86-year-old female with chronic weakness, esophageal dysmotility and chronic hypoxia who presented to the hospital due to recurrent aspiration pneumonia. Patient has a history of esophageal dysmotility which is moderate to severe ba sed on prior videofluoroscopic study. Recommend repeating the study and getting a speech consult. GI consult placed as well for further evaluation and treatment. Agree with cefepime for the time being. Obtain induced sputum. She does have a history of Pseudomonas positive sputum culture. If repeat sputum is positive, may need to consider nebulized tobramycin on a chronic basis although I am not certain that she would tolerate this therapy very well given her advanced age. Percussive vest therapy 4 times a day, hypertonic saline twice daily and CoughAssist 4 times a day to assist with airway clearance. Patient has a very weak cough and is diffusely weak. Can likely transition to twice daily CoughAssist as an outpatient along with percussive vest therapy and hypertonic saline.. Continue supplemental oxygen to maintain sats of 88 to 92%. Thank you for the consult. Please call with questions. We will follow along with you. History of Present Illness Reason for Consultation: "Recurrent pneumonia" Attending Physician: Carmelo Paredes MD History of Present Illness 86-year-old female with a history of esophageal dysmotility, coronary artery disease, chronic hypoxemic respiratory failure, hypertension, aspiration, carotid artery stenosis, cirrhosis, hiatal hernia and diabetic neuropathy presented to the ED secondary to chest pain and worsening cough. She lives in [facility]. She is bedbound at baseline. She was having chest pain at the care home and was ultimately brought in to the ER for evaluation. She had a CT chest which revealed bilateral tree-in-bud opacities with lower lobe atelectasis and small effusions. She was started on doxycycline and cefepime. Patient notes a history of asthma. Patient endorses difficulty swallowing and occasionally coughing after eating. She notes that she uses nebulizers 4-6 times a day. Allergies Allergy/AdvReac Type Severity Reaction Status Date / Time azelastine Allergy Intermediate elevated bp Verified 02/15/22 17:02 trospium Allergy Intermediate hives Verified 04/23/22 01:36 azithromycin Allergy Mild Rash Verified 04/23/22 01:36 citalopram Allergy Unknown UNKNOWN Verified 04/23/22 01:36 chlorpheniramine AdvReac Intermediate ELEVATED BP Verified 04/23/22 01:36 Corticosteroids AdvReac Intermediate ELEVATED BP Verified 04/23/22 01:36 (Glucocorticoids) fexofenadine AdvReac Intermediate ELEVATED BP Verified 04/23/22 01:36 fluticasone AdvReac Intermediate ELEVATED BP Verified 04/23/22 01:36 hydrocodone AdvReac Intermediate ELEVATED BP Verified 04/23/22 01:36 magnesium salicylate AdvReac Intermediate ELEVATED BP Verified 04/23/22 01:36 salicylates AdvReac Intermediate ELEVATED BP Verified 04/23/22 01:36 lactose AdvReac Abdominal Unverified 04/23/22 01:36 Pain Home Medications Medication Instructions Recorded Confirmed Type Antifungal Powd 2% 1 applic topical BID 02/15/22 05/30/22 History acetaminophen 325 mg tablet 650 mg PO Q4 PRN Fever Or Pain 02/15/22 05/30/22 History (Tylenol) acetaminophen 500 mg tablet 500 mg PO QID 02/15/22 05/30/22 History albuterol sulfate 90 mcg/actuation 2 puff inhalation QID PRN 02/15/22 05/30/22 History aerosol inhaler Shortness Of Breath Or Wheezing allopurinol 100 mg tablet 100 mg PO DAILY 02/15/22 05/30/22 History amlodipine 10 mg tablet 10 mg PO DAILY 02/15/22 05/30/22 History aspirin 81 mg tablet,delayed 81 mg PO DAILY 02/15/22 05/30/22 History release atorvastatin 40 mg tablet 40 mg PO HS 02/15/22 05/30/22 History buspirone 5 mg tablet 5 mg PO AMHS 02/15/22 05/30/22 History calcium carbonate 600 mg-vitamin 1 tab PO DAILY 02/15/22 05/30/22 History D3 10 mcg (400 unit) tablet (Calcium 600 + D(3)) camphor 4 %-methyl salicylate 30 1 applic topical QID 02/15/22 05/30/22 History %-menthol 10 % topical cream (Bengay Ultra Strength) camphor 4 %-methyl salicylate 30 1 applic topical BID 02/15/22 05/30/22 History %-menthol 10 % topical cream (Muscle Rub Ultra-Strength) duloxetine 60 mg capsule,delayed 60 mg PO DAILY 02/15/22 05/30/22 History release ferrous sulfate 325 mg (65 mg 325 mg PO AMHS 02/15/22 05/30/22 History iron) tablet fluticasone propionate 230 1 puff inhalation AMHS 02/15/22 05/30/22 History mcg-salmeterol 21 mcg/actuation HFA inhaler (Advair HFA) furosemide 20 mg tablet 20 mg PO DAILY 02/15/22 05/30/22 History gabapentin 100 mg capsule 200 mg PO TID 02/15/22 05/30/22 History guaifenesin 100 mg/5 mL oral 200 mg PO Q4H PRN Cough 02/15/22 05/30/22 History liquid (Siltussin SA) insulin aspart U-100 100 unit/mL 4 unit subcut PC 02/15/22 05/30/22 History subcutaneous solution (Novolog U-100 Insulin aspart) insulin glargine 100 unit/mL (3 10 unit subcut HS 02/15/22 05/30/22 History mL) subcutaneous pen (Lantus Solostar U-100 Insulin) ipratropium 0.5 mg-albuterol 3 mg 3 ml inhalation QID 02/15/22 05/30/22 History (2.5 mg base)/3 mL nebulization soln isosorbide mononitrate 60 mg 60 mg PO DAILY 02/15/22 05/30/22 History tablet,extended release 24 hr lidocaine 4 % topical patch 1 patch topical DAILY 02/15/22 05/30/22 History losartan 50 mg tablet 50 mg PO DAILY 02/15/22 05/30/22 History meclizine 25 mg tablet 25 mg PO Q8 PRN .DIZZYNESS 02/15/22 05/30/22 History melatonin 3 mg tablet 3 mg PO HS 02/15/22 05/30/22 History metformin 500 mg tablet 500 mg PO QAM 02/15/22 05/30/22 History metoprolol tartrate 50 mg tablet 50 mg PO BID 02/15/22 05/30/22 History mineral oil-isopropyl myristat 1 applic topical BID 02/15/22 05/30/22 History lotion montelukast 10 mg tablet 10 mg PO HS 02/15/22 05/30/22 History nitroglycerin 0.4 mg sublingual 0.4 mg sublingual DIRECTED 02/15/22 05/30/22 History tablet (Nitrostat) omeprazole 40 mg capsule,delayed 40 mg PO DAILY 02/15/22 05/30/22 History release ondansetron HCl 4 mg tablet 4 mg PO Q6H PRN Nausea 02/15/22 05/30/22 History polyethylene glycol 3350 17 gram 17 g PO HS 02/15/22 05/30/22 History oral powder packet vitamin B complex 1 tab PO DAILY 02/15/22 05/30/22 History ciprofloxacin HCl 500 mg tablet 500 mg PO BID #10 tabs 02/21/22 05/30/22 Rx famotidine 20 mg tablet 20 mg PO BID #20 tabs 04/22/22 05/30/22 Rx sucralfate 100 mg/mL oral 10 ml PO QID #420 mL 04/22/22 05/30/22 Rx suspension (Carafate) Lactobacillus acidophilus 1 tab PO DAILY 04/23/22 05/30/22 History lanolin-mineral oil lotion 1 applic topical DAILY 05/30/22 05/30/22 History Patient History Medical History (Updated 05/30/22 @ 17:39 by Manish Somers MD) Abnormal CT scan of lung Acute exacerbation of chronic obstructive pulmonary disease Acute on chronic respiratory failure with hypoxia Acute respiratory acidosis Acute worsening of stage 3 chronic kidney disease Ambulatory dysfunction Anemia Anxiety Anxiety (02/04/11) Arteriosclerotic coronary artery disease (02/04/11) Arthritis Asthma Asthma Breathlessness CAD (coronary artery disease) Carotid stenosis Cerebrovascular disease Chronic diastolic heart failure Chronic obstructive pulmonary disease Chronic pulmonary aspiration Chronic respiratory failure with hypoxia, on home O2 therapy CKD (chronic kidney disease), stage III Cough Degenerative disc disease Diabetes mellitus, type 2 Diabetic neuropathy Diabetic peripheral neuropathy Diverticulosis (02/04/11) DVT prophylaxis Dyslipidemia Encephalopathy due to infection Esophageal dysmotility GERD (gastroesophageal reflux disease) Hyperlipidemia Hyperlipidemia Hypertension Hypertension Hypoxia Leukocytosis Morbid obesity with BMI of 45.0-49.9, adult (02/04/11) Multifocal pneumonia Myocardial Infarction OVER 10 YEARS AGO Peripheral edema Physical deconditioning Pleural effusion Pneumonia Positive sputum culture for Pseudomonas Pressure sore ON COCCYX (FROM SITTING) Restless leg syndrome Type 2 diabetes mellitus (02/04/11) Unsteady gait when walking Urinary incontinence Venous insufficiency Weak cough Weakness Surgical History History of anesthesia reaction SLOW TO WAKE UP History of cataract surgery History of colonoscopy History of esophagogastroduodenoscopy (EGD) History of heart artery stent OVER 10 YEARS AGO/1 STENT (FOLLOWS DR. 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 Patient is in no apparent distress. Patient is well-developed. Eyes: Pupils are equal round and reactive to light. Conjunctivae are normal. Anicteric sclera. Ears nose, mouth and throat: Mallampati class 2. Normal posterior oropharynx. Uvula is midline. Neck: Trachea is midline. Visual inspection is normal. Respiratory: Rhonchi bilaterally. Mild tachypnea. Cardiovascular: Regular rate and rhythm. No murmurs. No edema. Gastrointestinal: Normal bowel sounds, soft, nontender and nondistended. No hepatosplenomegaly noted. Musculoskeletal: No cyanosis. Patient is able to move all extremities. Strength is 5 out of 5 in the upper and lower extremities. Skin: No rashes, warm dry and intact. Neurologic: Weak cough. Diffusely weak in all extremities. Psychiatric: Alert and oriented x3 with a euthymic affect. Results & Data Results & Data Vital Signs (Past 12 Hours) Vital Signs Temp Pulse Pulse Resp BP BP Pulse Ox 05/30/22 14:09 146/70 H 05/30/22 14:09 87 25 H 98 05/30/22 14:00 89 29 H 98 05/30/22 15:34 05/30/22 14:17 36.6 C 88 18 146/70 H 98 05/30/22 13:48 88 05/30/22 13:31 88 25 H 126/37 L 98 05/30/22 13:02 94 H 26 H 158/59 H 97 05/30/22 12:36 92 H 27 H 134/82 98 05/30/22 12:01 93 H 27 H 127/93 98 05/30/22 11:41 101 H 32 H 195/66 H 99 05/30/22 11:39 101 H 30 H 196/82 H 99 05/30/22 10:00 94 H 28 H 99 05/30/22 09:41 98 H 05/30/22 09:38 98 H 98 05/30/22 09:16 36.9 C 18 182/125 H 99 05/30/22 09:16 99 05/30/22 09:16 36.9 C 94 H 18 182/125 H 99 Pulse Ox O2 Del Method O2 Del Method O2 Flow Rate 05/30/22 14:09 05/30/22 14:09 Room Air 05/30/22 14:00 Room Air 05/30/22 15:34 97 Room Air 05/30/22 14:17 Nasal Cannula 3 05/30/22 13:48 05/30/22 13:31 Nasal Cannula 3 05/30/22 13:02 Nasal Cannula 3 05/30/22 12:36 Nasal Cannula 3 05/30/22 12:01 Nasal Cannula 3 05/30/22 11:41 Nasal Cannula 3 05/30/22 11:39 Nasal Cannula 3 05/30/22 10:00 Nasal Cannula 3 05/30/22 09:41 05/30/22 09:38 Nasal Cannula 3 05/30/22 09:16 Nasal Cannula 3 05/30/22 09:16 Nasal Cannula 3 05/30/22 09:16 Nasal Cannula 3 PG Care Time/CCT Total # of Minutes Spent Total Time Spent with Patient: Total time spent is greater than 50% in coordination of care (as documented) at patient's floor/unit and/or counseling patient: Coding Level of Care Code 37098 INT INP/OBS CARE MIN Diagnoses Chronic pulmonary aspiration T17.908A Esophageal dysmotility K22.4 Chronic respiratory failure with hypoxia, on home O2 therapy J96.11; Z99.81 Weak cough R05.8 Positive sputum culture for Pseudomonas R84.5
[2022-05-30] MEDS: INSULIN ASPART PER UNIT CHARGE SC SCH ×2 (17:51→21:25)
[2022-05-30] MEDS: SODIUM CHLOR 7% 4 ML NEB NEB SCH (20:35)
[2022-05-30] MEDS: ALBUT/IPRATROP 3MG/0.5MG NEB 3 ML VIAL INH SCH (20:35)
[2022-05-30] MEDS ORDERED: DOXYCYCLINE HYCLATE 100 MG CAP PO SCH (21:00)
[2022-05-30] MEDS: LANTUS PER UNIT CHARGE SQ SCH (21:26)
[2022-05-30] MEDS: FERROUS SULFATE 325 MG TAB PO SCH (21:29)
[2022-05-30] MEDS: MELATONIN 3 MG TAB PO SCH (21:30)
[2022-05-30] MEDS: FAMOTIDINE 20 MG TAB PO SCH (21:30)
[2022-05-30] MEDS: ATORVASTATIN 40 MG TAB PO SCH (21:31)
[2022-05-30] MEDS: METOPROLOL TARTRATE 50 MG TAB PO SCH (21:31)
[2022-05-30] MEDS: ENOXAPARIN INJ 40 MG/0.4 ML SYR SQ SCH (21:32)
[2022-05-30] MEDS: POLYETHYLENE (MIRALAX) 17 GM PACK PO SCH (21:33)
[2022-05-30] MEDS: busPIRone 5 MG TAB PO SCH (21:34)
[2022-05-30] MEDS: MONTELUKAST SODIUM 10 MG TABLET PO SCH (21:35)
[2022-05-31] MEDS: metroNIDAZOLE 500 MG/100 ML BAG IV SCH ×3 (00:07→17:09)
[2022-05-31] MEDS: CEFEPIME 2,000 MG in SYRINGE 0 ML IV SCH ×2 (03:55→17:09)
[2022-05-31] MEDS: ACETAMINOPHEN 325 MG TAB PO PRN ×2 (04:03→08:57)
[2022-05-31 04:55] LABS: Appearance Urine Cloudy (Clear); Bacteria Urine Automated 2+ (Negative); Bilirubin Urine Negative (Negative); Blood Urine Negative (Negative); Color Urine Yellow; Epithelial Cell Urine Auto 20-30 /lpf (0-5); Glucose Urine UA Negative (Negative); Ketones Urine Trace (Negative); Leukocyte Esterase Urine 2+ (Negative); Nitrite Urine Positive (Negative); Protein Urine 1+ (Negative); Specific Gravity Urine 1.045 (1.000-1.030); Urobilinogen Urine Negative (Negative); WBC Urine Automated >30 /hpf (0-5); pH Urine 5.5 (4.5-7.5)
[2022-05-31 05:22] LABS: RBC Urine Automated 0-4 /hpf (0-4)
[2022-05-31] MEDS: SODIUM CHLOR 7% 4 ML NEB NEB SCH ×2 (07:06→19:24)
[2022-05-31] MEDS: ALBUT/IPRATROP 3MG/0.5MG NEB 3 ML VIAL INH SCH ×4 (07:07→19:20)
[2022-05-31] MEDS: INSULIN ASPART PER UNIT CHARGE SC SCH ×4 (08:56→20:49)
[2022-05-31 08:58] LABS: Basophils # (auto) 0.03 K/uL (0-0.2); Basophils % (auto) 0.3 %; Eosinophils # (auto) 0.78 K/uL (0-0.50); Eosinophils % (auto) 6.7 %; Hematocrit (blood only) 29.2 % (37.0-47.0); Hemoglobin 9.2 g/dl (12.0-16.0); Immature Granulocytes # (auto) 0.04 K/uL (0.01-0.20); Immature Granulocytes % (auto) 0.3 %; Lymphocytes # (auto) 2.78 K/uL (1.2-3.4); Lymphocytes % (auto) 23.9 %; Mean Corpuscular Hemoglobin 30.8 pg (25.0-34.0); Mean Corpuscular Hgb Conc 31.5 g/dL (32.0-36.0); Mean Corpuscular Volume 97.7 fL (80.0-100.0); Monocytes # (auto) 0.97 K/uL (0.11-0.59); Monocytes % (auto) 8.3 %; Neutrophils # (auto) 7.05 K/uL (1.40-6.50); Neutrophils % (auto) 60.5 %; Platelet Count 136 K/uL (130-400); RDW Coefficient of Variation 14.1 % (11.5-14.5); RDW Standard Deviation 50.4 fL (36.4-46.3); Red Blood Count 2.99 M/uL (4.20-5.40); White Blood Count 11.65 K/ul (4.8-10.8)
[2022-05-31] MEDS: SUCRALFATE 1 GM/10 ML UDC PO SCH ×4 (09:02→20:35)
[2022-05-31] MEDS: ACETAMINOPHEN 500 MG TAB PO SCH ×4 (09:02→20:31)
[2022-05-31] MEDS: busPIRone 5 MG TAB PO SCH ×2 (09:02→20:32)
[2022-05-31] MEDS: METOPROLOL TARTRATE 50 MG TAB PO SCH ×2 (09:03→20:32)
[2022-05-31] MEDS: GABAPENTIN 100 MG CAP PO SCH ×3 (09:03→20:29)
[2022-05-31] MEDS: FAMOTIDINE 20 MG TAB PO SCH ×2 (09:04→20:32)
[2022-05-31] MEDS: CALCIUM 600MG + VIT D 400 IU TAB PO SCH (09:04)
[2022-05-31] MEDS: FERROUS SULFATE 325 MG TAB PO SCH ×2 (09:04→20:33)
[2022-05-31] MEDS: ISOSORBIDE MONO EXTENDED REL 60 MG TABCR PO SCH (09:04)
[2022-05-31] MEDS: amLODIPine BESYLATE 5 MG TAB PO SCH (09:05)
[2022-05-31] MEDS: ASPIRIN 81 MG ECTAB PO SCH (09:05)
[2022-05-31] MEDS: DULoxetine HCL 60 MG CAP PO SCH (09:05)
[2022-05-31] MEDS: allopurinoL 100 MG TAB PO SCH (09:06)
[2022-05-31] MEDS: LOSARTAN POTASSIUM 50 MG TAB PO SCH (09:06)
[2022-05-31] MEDS: LACTOBACILLUS ACIDOPHILUS 1 GM PACK PO SCH (09:06)
[2022-05-31] MEDS: PANTOprazole 40 MG TAB PO SCH (09:07)
[2022-05-31] MEDS: TROLAMINE SALICYLATE 10% CRM 255 APPLN/85 GM TUBE EXT SCH ×4 (09:07→20:39)
[2022-05-31] MEDS ORDERED: LANTUS PER UNIT CHARGE SQ ONE (09:12)
[2022-05-31 09:35] LABS: Albumin Level 3.1 gm/dl (3.4-5.0); BUN Creatinine Ratio 27.3 (10-20); Bilirubin,Total 0.4 mg/dl (0.2-1.0); Calcium 9.2 mg/dl (8.6-10.3); Creatinine Clr Calc Pharmacy 35.3 ml/min; Est GFR (African American) 53.4 ml/min; Est GFR (Non-African American) 46.1 ml/min; Globulin 3.2 gm/dl (2.5-4.0); Magnesium 1.7 mg/dl (1.7-2.4); Potassium 4.9 mmol/L (3.5-5.1); Total Protein 6.3 gm/dl (6.0-8.3)
[2022-05-31] MEDS: FLUTICASONE/VILANTEROL 200/25MCG 14 PUFFS/INHALER INH SCH (09:40)
[2022-05-31] MEDS: FUROSEMIDE 20 MG TAB PO SCH (09:41)
[2022-05-31] MEDS: LANTUS PER UNIT CHARGE SQ SCH ×2 (09:45→20:49)
--- NOTE | 2022-05-31 09:57 | Gastrointestinal Consultation ---
Date of Consultation May 31, 2022 Assessment & Plan (1) Dysphagia: As per recent evals: mild oropharyngeal dysphagia and esophageal dysmotility. A prior FEES in 2020 suggested aspiration of saliva/secretions. Prior EGDs have been normal. Plan OP EGD. OP esophageal manometry. Continue pantoprazole daily and famotidine BID (maintained on these as an OP). Continue slippery diet w aspiration precautions per prior speech therapy recommendations. GI will sign off. Please notify us if new/worsening GI issues. Supervising Physician Co-Signing Physician Notes I performed a history and physical examination of the patient today, including specifically on physical exam - soft abdomen. I have discussed the patient's management with the advanced practitioner. Please refer to the nurse practitioner's note for the documented findings and plan of care. No dysphagia. Know with oropharyngeal dysmotility. Unfortunately, there is no GI therapy for this. Recommend Speech and swallow therapy. Consider EGD and HRM as OP. Recall GI if needed. History of Present Illness Reason for Consultation: Esophageal dysmotility with recurrent aspiration Requesting Physician: Emanuel/Wendi Nicholas PA-C Attending Physician: Camilla Handy MD History of Present Illness Ms. Rosa Isela Hernandez is an 86-year-old female patient who lives at [facility] and carries a hx of T2DM, CHF, CAD S/P stenting 2019, Chronic resp failure on 3L O2, asthma, HTn, HLD, CVA carotid artery stenosis, CKD 3, and OJEDA cirrhosis followed by Coretta Fine in clinic. She was transferred to [facility] yesterday for worsening respiratory status. CT on arrival suggestive of recurrent pneumonia. GI is consulted as aspiration is suggested as the cause of the pneumonia. When asking the patient about difficulty swallowing she reports that she feels that some foods get stuck in the middle of the chest, that this has been present for many years and she does not recall any recent episodes of this. I was able to witness her take who pills in applesauce w/o difficultly an her RN tells me that she was able to eat her breakfast (soft and pured consistency). A review of OP records shows that she initially underwent EGD for dysphag[place] [address] Rose has had empiric esophageal dilation on a few occasions. Her most recent EGD was in June [address] Walter: normal (not dilated). She underwent FEES in 2020 w/o aspiration of food/liquid but w aspiration of saliva/secretions. She underwent VFSS in June 2021 w mild esophageal oropharyngeal dysphagia, esophageal dysmotility but no aspiration of foods/liquids. A bedside eval in Feb 2022 did not suggest aspiration. Slippery/moist diet was recomended as well as aspiration precautions. Allergies Allergy/AdvReac Type Severity Reaction Status Date / Time azelastine Allergy Intermediate elevated bp Verified 02/15/22 17:02 trospium Allergy Intermediate hives Verified 04/23/22 01:36 azithromycin Allergy Mild Rash Verified 04/23/22 01:36 citalopram Allergy Unknown UNKNOWN Verified 04/23/22 01:36 chlorpheniramine AdvReac Intermediate ELEVATED BP Verified 04/23/22 01:36 Corticosteroids AdvReac Intermediate ELEVATED BP Verified 04/23/22 01:36 (Glucocorticoids) fexofenadine AdvReac Intermediate ELEVATED BP Verified 04/23/22 01:36 fluticasone AdvReac Intermediate ELEVATED BP Verified 04/23/22 01:36 hydrocodone AdvReac Intermediate ELEVATED BP Verified 04/23/22 01:36 magnesium salicylate AdvReac Intermediate ELEVATED BP Verified 04/23/22 01:36 salicylates AdvReac Intermediate ELEVATED BP Verified 04/23/22 01:36 lactose AdvReac Abdominal Unverified 04/23/22 01:36 Pain Home Medications Medication Instructions Recorded Confirmed Type Antifungal Powd 2% 1 applic topical BID 02/15/22 05/30/22 History acetaminophen 325 mg tablet 650 mg PO Q4 PRN Fever Or Pain 02/15/22 05/30/22 History (Tylenol) acetaminophen 500 mg tablet 500 mg PO QID 02/15/22 05/30/22 History albuterol sulfate 90 mcg/actuation 2 puff inhalation QID PRN 02/15/22 05/30/22 History aerosol inhaler Shortness Of Breath Or Wheezing allopurinol 100 mg tablet 100 mg PO DAILY 02/15/22 05/30/22 History amlodipine 10 mg tablet 10 mg PO DAILY 02/15/22 05/30/22 History aspirin 81 mg tablet,delayed 81 mg PO DAILY 02/15/22 05/30/22 History release atorvastatin 40 mg tablet 40 mg PO HS 02/15/22 05/30/22 History buspirone 5 mg tablet 5 mg PO AMHS 02/15/22 05/30/22 History calcium carbonate 600 mg-vitamin 1 tab PO DAILY 02/15/22 05/30/22 History D3 10 mcg (400 unit) tablet (Calcium 600 + D(3)) camphor 4 %-methyl salicylate 30 1 applic topical QID 02/15/22 05/30/22 History %-menthol 10 % topical cream (Bengay Ultra Strength) camphor 4 %-methyl salicylate 30 1 applic topical BID 02/15/22 05/30/22 History %-menthol 10 % topical cream (Muscle Rub Ultra-Strength) duloxetine 60 mg capsule,delayed 60 mg PO DAILY 02/15/22 05/30/22 History release ferrous sulfate 325 mg (65 mg 325 mg PO AMHS 02/15/22 05/30/22 History iron) tablet fluticasone propionate 230 1 puff inhalation AMHS 02/15/22 05/30/22 History mcg-salmeterol 21 mcg/actuation HFA inhaler (Advair HFA) furosemide 20 mg tablet 20 mg PO DAILY 02/15/22 05/30/22 History gabapentin 100 mg capsule 200 mg PO TID 02/15/22 05/30/22 History guaifenesin 100 mg/5 mL oral 200 mg PO Q4H PRN Cough 02/15/22 05/30/22 History liquid (Siltussin SA) insulin aspart U-100 100 unit/mL 4 unit subcut PC 02/15/22 05/30/22 History subcutaneous solution (Novolog U-100 Insulin aspart) insulin glargine 100 unit/mL (3 10 unit subcut HS 02/15/22 05/30/22 History mL) subcutaneous pen (Lantus Solostar U-100 Insulin) ipratropium 0.5 mg-albuterol 3 mg 3 ml inhalation QID 02/15/22 05/30/22 History (2.5 mg base)/3 mL nebulization soln isosorbide mononitrate 60 mg 60 mg PO DAILY 02/15/22 05/30/22 History tablet,extended release 24 hr lidocaine 4 % topical patch 1 patch topical DAILY 02/15/22 05/30/22 History losartan 50 mg tablet 50 mg PO DAILY 02/15/22 05/30/22 History meclizine 25 mg tablet 25 mg PO Q8 PRN .DIZZYNESS 02/15/22 05/30/22 History melatonin 3 mg tablet 3 mg PO HS 02/15/22 05/30/22 History metformin 500 mg tablet 500 mg PO QAM 02/15/22 05/30/22 History metoprolol tartrate 50 mg tablet 50 mg PO BID 02/15/22 05/30/22 History mineral oil-isopropyl myristat 1 applic topical BID 02/15/22 05/30/22 History lotion montelukast 10 mg tablet 10 mg PO HS 02/15/22 05/30/22 History nitroglycerin 0.4 mg sublingual 0.4 mg sublingual DIRECTED 02/15/22 05/30/22 History tablet (Nitrostat) omeprazole 40 mg capsule,delayed 40 mg PO DAILY 02/15/22 05/30/22 History release ondansetron HCl 4 mg tablet 4 mg PO Q6H PRN Nausea 02/15/22 05/30/22 History polyethylene glycol 3350 17 gram 17 g PO HS 02/15/22 05/30/22 History oral powder packet vitamin B complex 1 tab PO DAILY 02/15/22 05/30/22 History ciprofloxacin HCl 500 mg tablet 500 mg PO BID #10 tabs 02/21/22 05/30/22 Rx famotidine 20 mg tablet 20 mg PO BID #20 tabs 04/22/22 05/30/22 Rx sucralfate 100 mg/mL oral 10 ml PO QID #420 mL 04/22/22 05/30/22 Rx suspension (Carafate) Lactobacillus acidophilus 1 tab PO DAILY 04/23/22 05/30/22 History lanolin-mineral oil lotion 1 applic topical DAILY 05/30/22 05/30/22 History Patient History Medical History (Updated 05/31/22 @ 12:00 by LLOYD Turcios) Abnormal CT scan of lung Acute exacerbation of chronic obstructive pulmonary disease Acute on chronic respiratory failure with hypoxia Acute respiratory acidosis Acute worsening of stage 3 chronic kidney disease Ambulatory dysfunction Anemia Anxiety Anxiety (02/04/11) Arteriosclerotic coronary artery disease (02/04/11) Arthritis Asthma Asthma Breathlessness CAD (coronary artery disease) Carotid stenosis Cerebrovascular disease Chronic diastolic heart failure Chronic obstructive pulmonary disease Chronic pulmonary aspiration Chronic respiratory failure with hypoxia, on home O2 therapy CKD (chronic kidney disease), stage III Cough Degenerative disc disease Diabetes mellitus, type 2 Diabetic neuropathy Diabetic peripheral neuropathy Diverticulosis (02/04/11) DVT prophylaxis Dyslipidemia Encephalopathy due to infection Esophageal dysmotility GERD (gastroesophageal reflux disease) Hyperlipidemia Hyperlipidemia Hypertension Hypertension Hypoxia Leukocytosis Morbid obesity with BMI of 45.0-49.9, adult (02/04/11) Multifocal pneumonia Myocardial Infarction OVER 10 YEARS AGO Peripheral edema Physical deconditioning Pleural effusion Pneumonia Positive sputum culture for Pseudomonas Pressure sore ON COCCYX (FROM SITTING) Restless leg syndrome Type 2 diabetes mellitus (02/04/11) Unsteady gait when walking Urinary incontinence Venous insufficiency Weak cough Weakness Surgical History History of anesthesia reaction SLOW TO WAKE UP History of cataract surgery History of colonoscopy History of esophagogastroduodenoscopy (EGD) History of heart artery stent OVER 10 YEARS AGO/1 STENT (FOLLOWS DR. 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 Cardio: No palpitations/irregular beats, no chest pain GI: Occasional dysphagia, No abdominal pain, no nausea/vomiting : Denies pain on urination Skin: No jaundice, itching or new rashes Physical Exam Constitutional: + ill appearing (chronically), + obese, + physical limitations (general weakness, needs assistance to sit up in bed, not ambulatory) and cooperative Eyes: PERRL, conjunctivae normal, anicteric sclerae ENMT: external ear and nose normal, oropharynx normal Neck: trachea midline, no thyromegaly Respiratory: normal respiratory effort and able to speak in complete sentences; no cough Cardiovascular: RRR, no murmur, no edema Gastrointestinal (Abdomen): normal bowel sounds, soft, nontender, no hepatosplenomegaly Musculoskeletal: no cyanosis or clubbing, extremities motor strength 5/5 Skin: + turgor decreased and + pallor (mild); no jaundice Neurologic: PERRL, EOMI, accommodation nl, no face palsy, no dysarthria Psychiatric: A+Ox3, euthymic affect Lymphatic: no cervical or axillary lymphadenopathy Results & Data Vital Signs (Past 12 Hours) Vital Signs Temp Pulse Pulse Resp BP BP Pulse Ox 05/31/22 07:47 36.6 C 64 18 139/64 93 05/31/22 07:08 80 16 93 05/31/22 04:00 36.8 C 66 18 135/76 98 05/30/22 22:03 67 05/30/22 22:00 36.8 C 56 L 18 109/72 96 O2 Del Method O2 Flow Rate 05/31/22 07:47 Nasal Cannula 3 05/31/22 07:08 Nasal Cannula 3 05/31/22 04:00 Nasal Cannula 3 05/30/22 22:03 05/30/22 22:00 Nasal Cannula 3 Laboratory Results WBC 16, Hb 10.3, Hct 32.3, plts 165, Na 141, K 4.1, Cl 101, CO2 35, BUN 23, Cr 0.8, glucose 139. Diagnostic Findings CTA chest 05/30/22: 1. No evidence for a pulmonary embolus with limitations as described above. 2. Persistent bronchial wall thickening with patchy bilateral airspace opacities most pronounced within the left upper lobe and multiple scattered tree-in-bud nodular airspace opacities. The left upper lobe airspace opacities are new from the prior study. The remaining airspace opacities have slightly improved. 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 3. Small right and trace left pleural effusions have slightly progressed. 4. Cirrhosis with a small amount of perihepatic ascites. CXR 05/30/22: Cardiomegaly and chronic parenchymal changes as above with no acute cardiopulmonary abnormality.
[2022-05-31] MEDS: VITAMIN B COMPLEX TAB PO SCH (12:26)
--- NOTE | 2022-05-31 13:37 | Electrocardiogram Report ---
Test Reason : Blood Pressure : / mmHG Vent. Rate : 064 BPM Atrial Rate : 064 BPM P-R Int : 166 ms QRS Dur : 086 ms QT Int : 432 ms P-R-T Axes : 060 027 052 degrees QTc Int : 445 ms Normal sinus rhythm Normal ECG When compared with ECG of 30-MAY-2022 09:15, Vent. rate has decreased BY 31 BPM Confirmed by Brody Contreras ([id number]) on 05/31/2022 1:37:43 PM Referred By: Garcia Calderon Confirmed By:Brody Contreras
--- NOTE | 2022-05-31 15:37 | Hospitalist Progress Note ---
Date of Service May 31, 2022 Assessment & Plan (1) Pneumonia: (2) Chronic respiratory failure with hypoxia: (3) Moderate persistent asthma: (4) Diabetes mellitus with diabetic nephropathy: (5) CAD (coronary artery disease): Plan 86-year-old female with significant past medical history of T2DM, chronic diastolic CHF, CAD status post MELVI to LAD in 2009, chronic hypoxemic respiratory failure on 3L of O2 chronically, Moderate-persistent asthma, HTN, HLD, history of CVA, carotid artery stenosis, CKD stage III, cirrhosis, hiatal hernia, GERD, diabetic neuropathy, anxiety who presents to ED 05/30 secondary to chest pain x 1 day. She is being managed for the following: JORDAN Pneumonia; Acute on Chronic Pneumonitis Chronic hypoxic resp failure Moderate persistent asthma w/o exac Leukocytosis Concern for aspiration pneumonia give esophageal problem Pt does not met Sepsis criteria at presentation but does have leukocytosis with wbc 16k at presentation History of swallow study in June 2021 revealing mild oropharyngeal dysphagia and signs and symptoms of esophageal dysfunction. Last hospitalized in Feb 2022 for ASP PNA; also hospitalized 06/2021, 03/2021, 01/2021 for PNA Pt's baseline O2 requirement around 3L NC O2. MRSA negative, c/w IV cefepime, and Flagyl for aspiration coverage f/u sputum Culture, not collected yet. c/w pulm toilet with nebs, spirometer and muccinex Pulm on board, appreciate recs. Dysphagia: GI evaled, OP manometry. c/w pantoprazole and famotidine and slippery diet w/ aspiration precaution. Acute UTI: per admitting UA, f/u urine Cx. pt on atb as above. Pleuritic Chest Pain Chest pain is pleuritic in nature, CTA with evidence of pneumonia and negative for PE Initial troponin negative, EKG without ST change Last echocardiogram 2020 revealed preserved EF with mildly dilated left atrium, moderate AV sclerosis and grade 1 diastolic dysfunction Repeat ECHO reviewed, appears stable. Doubt ACS, pt reports improving chest pain. CKD-3 Baseline creatinine 1.0 avoid nephrotoxic agents, monitor monitor closely T2DM, insulin-dependent Lantus/novolog per protocol a1c 5.5 05/06/22 CAD HTN HLD Continue metoprolol, imdur, amlodipine, lasix and losartan pt did not have a.m. meds, will give all home bp meds now Diabetic peripheral neuropathy continue gabapentin and duloxetine gabapentin recently increased to 200mg tid GERD Continue PPI and pepcid pt also takes carafate follows GI for Hiatal hernia Anemia baseline hgb ~ 10 10.3/32.3 at presentation. likely in setting of chronic disease Depression with anxiety continue buspar and duloxetine DVT prophylaxis: Lovenox Dispo: Patient to remain hospitalized, likely to return to [facility] upon discharge, PT/OT pt is bedbound at baseline utilizing annette lift DNR/DNI PCP: Dr. Maya Admission and Anticipated Discharge Date Admission Date: May 30, 2022 Subjective Patient seen and examined at bedside as a follow-up of left upper lobe pneumonia, acute on chronic pneumonitis, chronic hypoxic respiratory failure, pleuritic chest pain, possible UTI. Patient was lying in bed, on 2 L oxygen via nasal cannula, NAD, alert and oriented x3, reports cough at baseline with minimal sputum production, denies increased shortness of breath or chest pain, reports eating okay and moving bowels okay, denies any new acute event overnight. Denies chest pain or palpitation abdominal pain. Physical Exam Physical Exam: GENERAL: Alert and oriented x3. NAD, on 2L NC O2. HEENT: No pallor, no icterus. Pupils equal, round and reactive to light. Oral mucosa moist. NECK: No JVD, no neck masses. HEART: S1 and S2 heard. Regular rate and rhythm. No murmur, no gallop. RESPIRATORY SYSTEM: Normal AP diameter. No accessory muscle use. No wheezing, no crackles. ABDOMEN: Soft, bowel sounds present, nontender, no distention. CENTRAL NERVOUS SYSTEM: No facial droop. Speech is clear. Obeys simple commands. Moves extremities. EXTREMITIES: trace to 1+ BLE edema, ble chronic skin changes noted. Results & Data Results & Data Vital Signs (Past 12 Hours) Vital Signs Temp Pulse Pulse Resp BP BP Pulse Ox 05/31/22 15:28 36.9 C 66 18 96/55 L 90 05/31/22 11:41 36.6 C 60 16 100/56 L 98 05/31/22 06:00 63 05/31/22 10:54 05/31/22 10:51 72 16 95 05/31/22 07:47 36.6 C 64 18 139/64 93 05/31/22 07:08 80 16 93 05/31/22 04:00 36.8 C 66 18 135/76 98 O2 Del Method O2 Flow Rate 05/31/22 15:28 Nasal Cannula 1 05/31/22 11:41 Nasal Cannula 2 05/31/22 06:00 05/31/22 10:54 Nasal Cannula 3 05/31/22 10:51 Nasal Cannula 3 05/31/22 07:47 Nasal Cannula 3 05/31/22 07:08 Nasal Cannula 3 05/31/22 04:00 Nasal Cannula 3 (1) Pneumonia Laterality: unspecified laterality Lung location: unspecified part of lung Pneumonia type: due to unspecified organism Qualified Code(s): J18.9 - Pneumonia, unspecified organism
--- NOTE | 2022-05-31 16:29 | Pulmonology Progress Note ---
Date of Service May 31, 2022 Assessment & Plan (1) Chronic pulmonary aspiration: Plan: Continue speech therapy. Aspiration precautions. Appreciate GI input. Outpatient esophageal manometry. (2) Pneumonia: Plan: Obtain induced sputum. Continue mucociliary clearance efforts including percussive vest therapy, hypertonic saline and CoughAssist. Upon discharge, recommend flutter valve and CoughAssist. If sputum is positive once again for Pseudomonas, may consider nebulized tobramycin. Continue Pseudomonas coverage for the time being with IV antibiotics. Can likely transition to oral Levaquin tomorrow. Laterality: unspecified laterality Lung location: unspecified part of lung Pneumonia type: due to unspecified organism Qualified Code(s): J18.9 - Pneumonia, unspecified organism (3) Chronic respiratory failure with hypoxia, on home O2 therapy: Plan: Maintain O2 88 to 92%. Plan No further recommendations at this time. Please call with questions. Pulmonary to sign off. Admission and Anticipated Discharge Date Admission Date: May 30, 2022 Subjective Patient seen and examined. No significant changes in her symptoms. Remains on 2 to 3 L of oxygen. Cough is minimal at this time. She is very weak and essentially bedbound. Review of Systems Review of Systems: All systems reviewed & are unremarkable except as noted in HPI & below Physical Exam Physical Exam: Constitutional: Patient appears to be of their stated age. Patient is in no apparent distress. Patient is well-developed. Eyes: Pupils are equal round and reactive to light. Conjunctivae are normal. Anicteric sclera. Ears nose, mouth and throat: Mallampati class 2. Normal posterior oropharynx. Uvula is midline. Neck: Trachea is midline. Visual inspection is normal. Respiratory: Rhonchi bilaterally. Mild tachypnea. Cardiovascular: Regular rate and rhythm. No murmurs. No edema. Gastrointestinal: Normal bowel sounds, soft, nontender and nondistended. No hepatosplenomegaly noted. Musculoskeletal: No cyanosis. Patient is able to move all extremities. Strength is 5 out of 5 in the upper and lower extremities. Skin: No rashes, warm dry and intact. Neurologic: Weak cough. Diffusely weak in all extremities. Psychiatric: Alert and oriented x3 with a euthymic affect. Results & Data Results & Data Vital Signs (Past 12 Hours) Vital Signs Temp Pulse Pulse Resp BP Pulse Ox O2 Del Method 05/31/22 15:37 78 18 94 Nasal Cannula 05/31/22 14:10 71 05/31/22 15:28 36.9 C 66 18 96/55 L 90 Nasal Cannula 05/31/22 11:41 36.6 C 60 16 100/56 L 98 Nasal Cannula 05/31/22 06:00 63 05/31/22 10:54 Nasal Cannula 05/31/22 10:51 72 16 95 Nasal Cannula 05/31/22 07:47 36.6 C 64 18 139/64 93 Nasal Cannula 05/31/22 07:08 80 16 93 Nasal Cannula O2 Flow Rate 05/31/22 15:37 3 05/31/22 14:10 05/31/22 15:28 1 05/31/22 11:41 2 05/31/22 06:00 05/31/22 10:54 3 05/31/22 10:51 3 05/31/22 07:47 3 05/31/22 07:08 3 PG Care Time/CCT Total # of Minutes Spent Total Time Spent with Patient: Total time spent is greater than 50% in coordination of care (as documented) at patient's floor/unit and/or counseling patient: Coding Level of Care Code 20605 SUB INP/OBS CARE 03/30MIN Diagnoses Chronic pulmonary aspiration T17.908A Pneumonia J18.9 Laterality: unspecified laterality Lung location: unspecified part of lung Pneumonia type: due to unspecified organism Chronic respiratory failure with hypoxia, on home O2 therapy J96.11; Z99.81
[2022-05-31] MEDS: ATORVASTATIN 40 MG TAB PO SCH (20:32)
[2022-05-31] MEDS: MONTELUKAST SODIUM 10 MG TABLET PO SCH (20:32)
[2022-05-31] MEDS: ENOXAPARIN INJ 40 MG/0.4 ML SYR SQ SCH (20:35)
[2022-05-31] MEDS: POLYETHYLENE (MIRALAX) 17 GM PACK PO SCH (20:36)
[2022-05-31] MEDS: MELATONIN 3 MG TAB PO SCH (20:49)
[2022-06-01] MEDS: metroNIDAZOLE 500 MG/100 ML BAG IV SCH ×2 (01:28→08:43)
[2022-06-01] MEDS: CEFEPIME 2,000 MG in SYRINGE 0 ML IV SCH (03:22)
[2022-06-01] MEDS: SODIUM CHLOR 7% 4 ML NEB NEB SCH ×2 (07:01→19:15)
[2022-06-01] MEDS: ALBUT/IPRATROP 3MG/0.5MG NEB 3 ML VIAL INH SCH ×4 (07:01→19:15)
[2022-06-01 08:27] LABS: Basophils # (auto) 0.06 K/uL (0-0.2); Basophils % (auto) 0.7 %; Eosinophils # (auto) 1.02 K/uL (0-0.50); Eosinophils % (auto) 11.5 %; Hematocrit (blood only) 29.5 % (37.0-47.0); Hemoglobin 9.4 g/dl (12.0-16.0); Immature Granulocytes # (auto) 0.03 K/uL (0.01-0.20); Immature Granulocytes % (auto) 0.3 %; Lymphocytes # (auto) 2.14 K/uL (1.2-3.4); Lymphocytes % (auto) 24.1 %; Mean Corpuscular Hemoglobin 30.9 pg (25.0-34.0); Mean Corpuscular Hgb Conc 31.9 g/dL (32.0-36.0); Monocytes # (auto) 0.81 K/uL (0.11-0.59); Monocytes % (auto) 9.1 %; Neutrophils # (auto) 4.82 K/uL (1.40-6.50); Neutrophils % (auto) 54.3 %; Platelet Count 140 K/uL (130-400); RDW Coefficient of Variation 13.8 % (11.5-14.5); RDW Standard Deviation 49.2 fL (36.4-46.3); Red Blood Count 3.04 M/uL (4.20-5.40); White Blood Count 8.88 K/ul (4.8-10.8)
[2022-06-01] MEDS: LANTUS PER UNIT CHARGE SQ SCH ×2 (08:43→22:21)
[2022-06-01] MEDS: INSULIN ASPART PER UNIT CHARGE SC SCH ×4 (08:44→22:22)
[2022-06-01] MEDS: ACETAMINOPHEN 500 MG TAB PO SCH ×5 (08:46→22:21)
[2022-06-01] MEDS: FLUTICASONE/VILANTEROL 200/25MCG 14 PUFFS/INHALER INH SCH (08:47)
[2022-06-01] MEDS: TROLAMINE SALICYLATE 10% CRM 255 APPLN/85 GM TUBE EXT SCH ×5 (08:48→22:12)
[2022-06-01] MEDS: LACTOBACILLUS ACIDOPHILUS 1 GM PACK PO SCH (08:49)
[2022-06-01] MEDS: guaiFENesin SUGAR FREE 200 MG/10 ML UDC PO PRN ×2 (08:49→12:58)
[2022-06-01] MEDS: SUCRALFATE 1 GM/10 ML UDC PO SCH ×4 (08:49→22:12)
[2022-06-01] MEDS: FAMOTIDINE 20 MG TAB PO SCH ×2 (08:50→22:11)
[2022-06-01] MEDS: FERROUS SULFATE 325 MG TAB PO SCH ×2 (08:51→22:11)
[2022-06-01] MEDS: GABAPENTIN 100 MG CAP PO SCH ×3 (08:51→22:11)
[2022-06-01] MEDS: METOPROLOL TARTRATE 50 MG TAB PO SCH ×2 (08:51→22:11)
[2022-06-01] MEDS: busPIRone 5 MG TAB PO SCH ×2 (08:51→22:11)
[2022-06-01] MEDS: CALCIUM 600MG + VIT D 400 IU TAB PO SCH (08:52)
[2022-06-01] MEDS: ISOSORBIDE MONO EXTENDED REL 60 MG TABCR PO SCH (08:52)
[2022-06-01] MEDS: LOSARTAN POTASSIUM 50 MG TAB PO SCH (08:53)
[2022-06-01] MEDS: DULoxetine HCL 60 MG CAP PO SCH (08:53)
[2022-06-01] MEDS: amLODIPine BESYLATE 5 MG TAB PO SCH (08:54)
[2022-06-01] MEDS: PANTOprazole 40 MG TAB PO SCH (08:54)
[2022-06-01] MEDS: FUROSEMIDE 20 MG TAB PO SCH (08:54)
[2022-06-01] MEDS: allopurinoL 100 MG TAB PO SCH (08:54)
[2022-06-01] MEDS: ASPIRIN 81 MG ECTAB PO SCH (08:54)
[2022-06-01 09:01] LABS: Albumin Globulin Ratio 0.9 (0.9-2); Albumin Level 3.2 gm/dl (3.4-5.0); BUN Creatinine Ratio 34.1 (10-20); Bilirubin,Total 0.3 mg/dl (0.2-1.0); Calcium 9.3 mg/dl (8.6-10.3); Est GFR (African American) 46.6 ml/min; Est GFR (Non-African American) 40.2 ml/min; Globulin 3.4 gm/dl (2.5-4.0); Potassium 4.4 mmol/L (3.5-5.1); Total Protein 6.6 gm/dl (6.0-8.3)
[2022-06-01 10:28] LABS: Appearance Urine Clear (Clear); Bilirubin Urine Negative (Negative); Blood Urine Negative (Negative); Color Urine Yellow; Epithelial Cell Urine Auto >30 /lpf (0-5); Glucose Urine UA Negative (Negative); Ketones Urine Negative (Negative); Leukocyte Esterase Urine 2+ (Negative); Nitrite Urine Negative (Negative); Protein Urine 1+ (Negative); RBC Urine Automated 0-4 /hpf (0-4); Specific Gravity Urine 1.024 (1.000-1.030); Urobilinogen Urine Negative (Negative); WBC Urine Automated >30 /hpf (0-5); pH Urine 5.5 (4.5-7.5)
[2022-06-01 10:43] LABS: Calcium Oxalate Crystals Urine Present (None Prsent)
[2022-06-01 10:47] LABS: Bacteria Urine Automated 1+ (Negative)
[2022-06-01] MEDS: VITAMIN B COMPLEX TAB PO SCH (12:57)
--- NOTE | 2022-06-01 14:41 | Hospitalist Progress Note ---
Date of Service June 01, 2022 Assessment & Plan (1) Pneumonia: (2) Chronic respiratory failure with hypoxia: (3) Moderate persistent asthma: (4) Diabetes mellitus with diabetic nephropathy: (5) CAD (coronary artery disease): Plan 86-year-old female with significant past medical history of T2DM, chronic diastolic CHF, CAD status post MELVI to LAD in 2009, chronic hypoxemic respiratory failure on 3L of O2 chronically, Moderate-persistent asthma, HTN, HLD, history of CVA, carotid artery stenosis, CKD stage III, cirrhosis, hiatal hernia, GERD, diabetic neuropathy, anxiety who presents to ED 05/30 secondary to chest pain x 1 day. She is being managed for the following: JORDAN Pneumonia; Acute on Chronic Pneumonitis Chronic hypoxic resp failure Moderate persistent asthma w/o exac Leukocytosis Concern for aspiration pneumonia give esophageal problem Pt does not met Sepsis criteria at presentation but does have leukocytosis with wbc 16k at presentation History of swallow study in June 2021 revealing mild oropharyngeal dysphagia and signs and symptoms of esophageal dysfunction. Last hospitalized in Feb 2022 for ASP PNA; also hospitalized 06/2021, 03/2021, 01/2021 for PNA Pt's baseline O2 requirement around 3L NC O2. MRSA negative, Pulmonology consulted; recommend induced sputum. Continue airway clearance with percussive vest therapy, hypertonic saline and CoughAssist. Currently on cefepime and Flagyl. To be changed to Levaquin. EKG reviewed; QTc of 445 Dysphagia: GI evaluated the patient; recommended speech and swallow therapy. EGD and HRM as outpatient Acute UTI: Urine culture showed 3 types of organism present. Repeat urine culture ordered. Pleuritic Chest Pain Chest pain is pleuritic in nature, CTA with evidence of pneumonia and negative for PE Initial troponin negative, EKG without ST change Last echocardiogram 2020 revealed preserved EF with mildly dilated left atrium, moderate AV sclerosis and grade 1 diastolic dysfunction Repeat ECHO reviewed, appears stable. Doubt ACS, pt reports improving chest pain. CKD-3 Baseline creatinine 1.0; 1.23 today avoid nephrotoxic agents, monitor monitor closely T2DM, insulin-dependent Lantus/novolog per protocol a1c 5.5 05/06/22 CAD HTN HLD Continue metoprolol, imdur, amlodipine, lasix and losartan Diabetic peripheral neuropathy continue gabapentin and duloxetine gabapentin recently increased to 200mg tid GERD Continue PPI and pepcid pt also takes carafate follows GI for Hiatal hernia Anemia baseline hgb ~ 10 likely in setting of chronic disease Depression with anxiety continue buspar and duloxetine DVT prophylaxis: Lovenox Dispo: Patient to remain hospitalized, likely to return to [facility] nursing upon discharge, PT/OT pt is bedbound at baseline utilizing annette lift DNR/DNI PCP: Dr. Maya Admission and Anticipated Discharge Date Admission Date: May 30, 2022 Subjective Patient seen and examined at bedside. She reports that she is feeling tired; denies any cough or fever. Review of Systems Review of Systems: All systems reviewed & are unremarkable except as noted in Subjective Physical Exam Physical Exam: GENERAL: Alert and oriented x3. NAD, on 2L NC O2. HEENT: No pallor, no icterus. Pupils equal, round and reactive to light. Oral mucosa moist. NECK: No JVD, no neck masses. HEART: S1 and S2 heard. Regular rate and rhythm. No murmur, no gallop. RESPIRATORY SYSTEM: Normal AP diameter. No accessory muscle use. No wheezing, no crackles. ABDOMEN: Soft, bowel sounds present, nontender, no distention. CENTRAL NERVOUS SYSTEM: No facial droop. Speech is clear. Obeys simple commands. Moves extremities. EXTREMITIES: trace to 1+ BLE edema, ble chronic skin changes noted. Results & Data Results & Data Vital Signs (Past 12 Hours) Vital Signs Temp Pulse Pulse Resp BP Pulse Ox O2 Del Method 06/01/22 11:41 36.8 C 64 18 105/50 L 97 Nasal Cannula 06/01/22 06:30 69 06/01/22 08:10 Nasal Cannula 06/01/22 08:00 36.7 C 70 18 147/57 H 98 Nasal Cannula 06/01/22 07:03 72 16 95 Nasal Cannula 06/01/22 03:10 36.5 C 64 18 115/64 98 Nasal Cannula O2 Flow Rate 06/01/22 11:41 2 06/01/22 06:30 06/01/22 08:10 3 06/01/22 08:00 2 06/01/22 07:03 3 06/01/22 03:10 3 Laboratory Results Laboratory Results WBC 8.88 K/ul (4.8-10.8) 06/01/22 07:08 RBC 3.04 M/uL (4.20-5.40) L 06/01/22 07:08 Hgb 9.4 g/dl (12.0-16.0) L 06/01/22 07:08 Hct 29.5 % (37.0-47.0) L 06/01/22 07:08 MCV 97.0 fL (80.0-100.0) 06/01/22 07:08 MCH 30.9 pg (25.0-34.0) 06/01/22 07:08 MCHC 31.9 g/dL (32.0-36.0) L 06/01/22 07:08 RDW Std Deviation 49.2 fL (36.4-46.3) H 06/01/22 07:08 RDW Coeff of Rakesh 13.8 % (11.5-14.5) 06/01/22 07:08 Plt Count 140 K/uL (130-400) 06/01/22 07:08 MPV 12.0 fL (9.4-12.4) 06/01/22 07:08 Immature Gran % (Auto) 0.3 % 06/01/22 07:08 Neut % (Auto) 54.3 % 06/01/22 07:08 Lymph % (Auto) 24.1 % 06/01/22 07:08 Iron % (Auto) 9.1 % 06/01/22 07:08 Eos % (Auto) 11.5 % 06/01/22 07:08 Baso % (Auto) 0.7 % 06/01/22 07:08 Neut # (Auto) 4.82 K/uL (1.40-6.50) 06/01/22 07:08 Lymph # (Auto) 2.14 K/uL (1.2-3.4) 06/01/22 07:08 Iron # (Auto) 0.81 K/uL (0.11-0.59) H 06/01/22 07:08 Eos # (Auto) 1.02 K/uL (0-0.50) H 06/01/22 07:08 Baso # (Auto) 0.06 K/uL (0-0.2) 06/01/22 07:08 Immature Gran # (Auto) 0.03 K/uL (0.01-0.20) 06/01/22 07:08 D-Dimer 1470 ug/L FEU (0-500) H* 05/30/22 09:46 Sodium 138 mmol/L (136-145) 06/01/22 07:08 Potassium 4.4 mmol/L (3.5-5.1) 06/01/22 07:08 Chloride 102 mmol/L (98-107) 06/01/22 07:08 Carbon Dioxide 33 mmol/L (21-32) H 06/01/22 07:08 Anion Gap 3 (3-11) 06/01/22 07:08 BUN 42 mg/dl (6-23) H 06/01/22 07:08 Creatinine 1.23 mg/dl (0.6-1.2) H 06/01/22 07:08 Est Cr Clr Drug Dosing 32.0 ml/min 06/01/22 07:08 Est GFR ( Amer) 46.6 ml/min 06/01/22 07:08 Est GFR (Non-Af Amer) 40.2 ml/min 06/01/22 07:08 BUN/Creatinine Ratio 34.1 (10-20) H 06/01/22 07:08 Glucose 108 mg/dl (70-99(Fasting)) H 06/01/22 07:08 POC Glucose 213 mg/dl (70-99) H 06/01/22 11:55 Calcium 9.3 mg/dl (8.6-10.3) 06/01/22 07:08 Magnesium 2.0 mg/dl (1.7-2.4) 06/01/22 07:08 Total Bilirubin 0.3 mg/dl (0.2-1.0) 06/01/22 07:08 AST 18 U/L (13-39) 06/01/22 07:08 ALT 16 U/L (7-52) 06/01/22 07:08 Alkaline Phosphatase 86 U/L (34-104) 06/01/22 07:08 Troponin I High Sens 10.7 pg/ml (0-14) 05/30/22 19:57 Total Protein 6.6 gm/dl (6.0-8.3) 06/01/22 07:08 Albumin 3.2 gm/dl (3.4-5.0) L 06/01/22 07:08 Globulin 3.4 gm/dl (2.5-4.0) 06/01/22 07:08 Albumin/Globulin Ratio 0.9 (0.9-2) 06/01/22 07:08 Lipase 22 U/L (11-82) 05/30/22 09:45 Procalcitonin 0.07 ng/ml (0-0.5) 05/30/22 09:46 Urine Color Yellow 06/01/22 10:00 Urine Appearance Clear (Clear) 06/01/22 10:00 Urine pH 5.5 (4.5-7.5) 06/01/22 10:00 Ur Specific [place] 1.024 (1.000-1.030) 06/01/22 10:00 Urine Protein 1+ (Negative) H 06/01/22 10:00 Urine Glucose (UA) Negative (Negative) 06/01/22 10:00 Urine Ketones Negative (Negative) 06/01/22 10:00 Urine Blood Negative (Negative) 06/01/22 10:00 Urine Nitrite Negative (Negative) 06/01/22 10:00 Urine Bilirubin Negative (Negative) 06/01/22 10:00 Urine Urobilinogen Negative (Negative) 06/01/22 10:00 Ur Leukocyte Esterase 2+ (Negative) H 06/01/22 10:00 Urine WBC (Auto) >30 /hpf (0-5) H 06/01/22 10:00 Urine RBC (Auto) 0-4 /hpf (0-4) 06/01/22 10:00 U Hyaline Cast (Auto) 1-5 /lpf (0-5) 06/01/22 10:00 U Epithel Cells (Auto) >30 /lpf (0-5) H 06/01/22 10:00 Urine Bacteria (Auto) 1+ (Negative) H 06/01/22 10:00 Calcium Oxalate Crystal Present (None Prsent) A 06/01/22 10:00 Urine Yeast Not Reportable 05/31/22 04:21 Nasal Screen MRSA (PCR) Negative (Negative) 05/30/22 14:53 SARS-CoV-2, RNA, NAAT NEGATIVE (NEGATIVE) 05/30/22 09:46 Impressions Chest X-Ray 05/30/22 09:38 SINGLE VIEW CHEST CLINICAL HISTORY: Atypical chest pain. ' FINDINGS: An AP, portable, upright chest radiograph is compared to study dated 04/22/2022 and correlated with chest CT dated 02/15/2022. The heart is enlarged noting atherosclerotic calcification of the thoracic aorta. The pulmonary va sculature is noncongested. Enlargement of the central pulmonary vessels suggests pulmonary artery hypertension. Chronic interstitial thickening and nodularity is similar to previous. Foci of parenchymal scarring are seen throughout both lungs. No superimposed airspace consolidation or large pleural effusion is identified. No pneumothorax is seen. The skeletal structures are osteopenic. The bony thorax is grossly intact. Cholecystectomy clips are noted in the right upper quadrant. IMPRESSION: Cardiomegaly and chronic parenchymal changes as above with no acute cardiopulmonary abnormality. ACT 112: Negative or not required by law. Electronically signed by: Ravi Schwarz M.D. 05/30/2022 10:06 AM Chest CTA 05/30/22 10:51 CHEST CTA for PULMONARY ARTERIES CT DOSE: 594.06 mGy.cm HISTORY: positive d-dimer and pleuritic chest pain TECHNIQUE: Multiaxial CT images of the chest were performed following the intravenous administration of contrast to evaluate the pulmonary arteries. Maximal intensity projection images were also obtained. A dose lowering technique was utilized adhering to the principles of ALARA. COMPARISON STUDY: Chest CTA 02/15/2022. FINDINGS: Moderate calcified plaque within the normal caliber thoracic aorta. No evidence for an aortic dissection. There are severe coronary artery calcifications noted. Nondiagnostic evaluation of the majority of the subsegmental pulmonary arteries due to the motion artifact. Otherwise, no filling defects within the pulmonary arteries to suggest a pulmonary embolus. Cirrhotic liver with splenomegaly again noted. Trace perihepatic ascites. Small right and trace left pleural effusions. Normal thyroid gland. Normal caliber esophagus. Cholecystectomy. The heart is top normal in size. No pericardial effusion. Stable prominent mediastinal and hilar lymph nodes. No acute fractures within the chest. No pneumothorax. Bibasilar bronchial wall thickening. Patchy groundglass airspace opacities within the left upper lobe are new from the prior study. There is improved aeration within the mid to lower lung zones compared the prior study. Scattered tree-in-bud nodular airspace opacities persist. Small areas consolidation within the lower lobes posteriorly are also similar to the prior study. IMPRESSION: 1. No evidence for a pulmonary embolus with limitations as described above. 2. Persistent bronchial wall thickening with patchy bilateral airspace opacities most pronounced within the left upper lobe and multiple scattered tree-in-bud nodular airspace opacities. The left upper lobe airspace opacities are new from the prior study. The remaining airspace opacities have slightly improved. 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 3. Small right and trace left pleural effusions have slightly progressed. 4. Cirrhosis with a small amount of perihepatic ascites. ACT 112: Negative or not required by law. Electronically signed by: Daniel Jarrett M.D. 05/30/2022 12:07 PM (1) Pneumonia Laterality: unspecified laterality Lung location: unspecified part of lung Pneumonia type: due to unspecified organism Qualified Code(s): J18.9 - Pneumonia, unspecified organism
[2022-06-01] MEDS ORDERED: levoFLOXacin 750 MG TAB PO SCH (16:00)
[2022-06-01] MEDS: MONTELUKAST SODIUM 10 MG TABLET PO SCH (22:11)
[2022-06-01] MEDS: ENOXAPARIN INJ 40 MG/0.4 ML SYR SQ SCH (22:11)
[2022-06-01] MEDS: ATORVASTATIN 40 MG TAB PO SCH (22:11)
[2022-06-01] MEDS: POLYETHYLENE (MIRALAX) 17 GM PACK PO SCH (22:12)
[2022-06-01] MEDS: MELATONIN 3 MG TAB PO SCH (22:21)
[2022-06-02] MEDS: SODIUM CHLOR 7% 4 ML NEB NEB SCH (07:45)
[2022-06-02] MEDS: ALBUT/IPRATROP 3MG/0.5MG NEB 3 ML VIAL INH SCH ×2 (07:45→11:18)
[2022-06-02] MEDS: INSULIN ASPART PER UNIT CHARGE SC SCH ×2 (08:50→12:18)
[2022-06-02] MEDS: SUCRALFATE 1 GM/10 ML UDC PO SCH (08:51)
[2022-06-02] MEDS: LANTUS PER UNIT CHARGE SQ SCH (08:51)
[2022-06-02] MEDS: LACTOBACILLUS ACIDOPHILUS 1 GM PACK PO SCH (08:52)
[2022-06-02] MEDS: busPIRone 5 MG TAB PO SCH (08:52)
[2022-06-02] MEDS: GABAPENTIN 100 MG CAP PO SCH (08:52)
[2022-06-02] MEDS: allopurinoL 100 MG TAB PO SCH (08:52)
[2022-06-02] MEDS: FAMOTIDINE 20 MG TAB PO SCH (08:52)
[2022-06-02] MEDS: METOPROLOL TARTRATE 50 MG TAB PO SCH (08:52)
[2022-06-02] MEDS: FERROUS SULFATE 325 MG TAB PO SCH (08:52)
[2022-06-02] MEDS: PANTOprazole 40 MG TAB PO SCH (08:52)
[2022-06-02] MEDS: amLODIPine BESYLATE 5 MG TAB PO SCH (08:53)
[2022-06-02] MEDS: ASPIRIN 81 MG ECTAB PO SCH (08:53)
[2022-06-02] MEDS: CALCIUM 600MG + VIT D 400 IU TAB PO SCH (08:53)
[2022-06-02] MEDS: ISOSORBIDE MONO EXTENDED REL 60 MG TABCR PO SCH (08:53)
[2022-06-02] MEDS: FUROSEMIDE 20 MG TAB PO SCH (08:53)
[2022-06-02] MEDS: DULoxetine HCL 60 MG CAP PO SCH (08:53)
[2022-06-02] MEDS: FLUTICASONE/VILANTEROL 200/25MCG 14 PUFFS/INHALER INH SCH (08:54)
[2022-06-02] MEDS: guaiFENesin SUGAR FREE 200 MG/10 ML UDC PO PRN (08:54)
[2022-06-02] MEDS: TROLAMINE SALICYLATE 10% CRM 255 APPLN/85 GM TUBE EXT SCH (08:55)
[2022-06-02] MEDS: ACETAMINOPHEN 500 MG TAB PO SCH (08:56)
[2022-06-02] MEDS: LOSARTAN POTASSIUM 50 MG TAB PO SCH (09:54)
[2022-06-02] MEDS: VITAMIN B COMPLEX TAB PO SCH (12:18)
--- NOTE | 2022-06-02 14:32 | Discharge Summary ---
Date of Service June 02, 2022 Admission HPI Per Admitting Provider This is an 86-year-old female with significant past medical history of T2DM, chronic diastolic CHF, CAD status post MELVI to LAD in 2009, chronic hypoxemic respiratory failure on 3L of O2 chronically, Moderate-persistent asthma, HTN, HLD, history of CVA, carotid artery stenosis, CKD stage III, cirrhosis, hiatal hernia, GERD, diabetic neuropathy, anxiety who presents to ED secondary to chest pain x 1 day. And worsening cough. She currently resides at [facility]. She is bedbound/wheelchair-bound at baseline and requires Susie lift. She does not walk. She typically wears 3 L of oxygen at baseline. Yesterday she noticed left-sided chest pain that was specifically worse with taking a deep breath. Pain was constant, wax and wane in severity, was nonradiating and she has experienced similar pain in the past. She is unsure what happened the last time she had similar pain. She also feels that she may have a slight increase in her cough with increased production. She occasionally can produce discolored mucus but typically it stops her, "throat." She always complains of feeling cold but denies any documented fever or sweats. She denies any lightheadedness, dizziness, worsening shortness of breath at baseline, nausea, vomiting, abdominal pain, melena, hematochezia or hematuria. Over the last days she has complained of dry heaving. Her last bowel movement was 2 days ago and was normal for her. She does have history of recurrent UTIs where typically she experiences dysuria. She denies any current dysuria or increased urgency or frequency. She was sent to ED for evaluation for chest pain. Chest pain is pleuritic in nature as it is worse with taking a deep breath and with coughing. It is not worse with physical movement. Unable to a tell if worse with exertion as she does not exert herself. In ED patient remained hemodynamically stable although she was hypertensive. She did not take any of her morning medications. She was not requiring more oxygen than her baseline. Lab work significant for leukocytosis at 16.13, H&H 10.3 and 32.3, elevated D-dimer 1470, BUN/creatinine stable at 23 and 0.80, troponin WNL and SARS-CoV-2 negative. Chest CTA negative for PE but did reveal persistent bronchial wall thickening with patchy bilateral airspace opacities most pronounced in the left upper lobe and multiple scattered tree-in-bud nodular airspace opacities. The left upper lobe airspace opacities are new which favors a acute on chronic atypical pneumonitis. Small right and trace left pleural effusions have slightly progressed. Admission Exam Per Admitting Provider Constitutional: Elderly, F, lying in Bed on 3L of O2 via NC,nontoxic appearing, vitals as above, NAD, pleasant, conversing easily Head: Normocephalic, Atraumatic Eyes: PERRL, conjunctivae normal, anicteric sclerae ENMT: external ear and nose normal, oropharynx normal dry membranes Neck: trachea midline, no thyromegaly normal visual inspection Respiratory: +pain with deep inspiration, normal respiratory effort, lungs clear to auscultation, no wheeze, rales, rhonchi. Normal insp/exp effort, no ac cessory muscle use Cardiovascular: RRR, no murmur, no edema Vessels: no JVD or carotid bruit Chest: normal inspection of chest, chest pain not reproducible Abdomen: normal bowel sounds, soft, nontender, no hepatosplenomegaly Musculoskeletal: no cyanosis or clubbing,AROm x 4, strength 3/5 b/l lower ext, 4/5 upper ext Skin: no rashes, warm and dry normal turgor Neurologic: PERRL, EOMI, accommodation nl, no face palsy, no dysarthria CN's II-XI intact bilaterally and moves all extremities Psychiatric: A+Ox3, euthymic affect Lymphatic: no cervical or axillary lymphadenopathy : deferred Principal Diagnosis JORDAN Pneumonia Aspiration pneumonia Discharge Exam GENERAL: Alert and oriented x3. NAD, on 2L NC O2. HEENT: No pallor, no icterus. Pupils equal, round and reactive to light. Oral mucosa moist. NECK: No JVD, no neck masses. HEART: S1 and S2 heard. Regular rate and rhythm. No murmur, no gallop. RESPIRATORY SYSTEM: Normal AP diameter. No accessory muscle use. No wheezing, no crackles. ABDOMEN: Soft, bowel sounds present, nontender, no distention. CENTRAL NERVOUS SYSTEM: No facial droop. Speech is clear. Obeys simple commands. Moves extremities. EXTREMITIES: trace to 1+ BLE edema, ble chronic skin changes noted. Discharge Data Allergies Allergy/AdvReac Type Severity Reaction Status Date / Time azelastine Allergy Intermediate elevated bp Verified 02/15/22 17:02 trospium Allergy Intermediate hives Verified 04/23/22 01:36 azithromycin Allergy Mild Rash Verified 04/23/22 01:36 citalopram Allergy Unknown UNKNOWN Verified 04/23/22 01:36 chlorpheniramine AdvReac Intermediate ELEVATED BP Verified 04/23/22 01:36 Corticosteroids AdvReac Intermediate ELEVATED BP Verified 04/23/22 01:36 (Glucocorticoids) fexofenadine AdvReac Intermediate ELEVATED BP Verified 04/23/22 01:36 fluticasone AdvReac Intermediate ELEVATED BP Verified 04/23/22 01:36 hydrocodone AdvReac Intermediate ELEVATED BP Verified 04/23/22 01:36 magnesium salicylate AdvReac Intermediate ELEVATED BP Verified 04/23/22 01:36 salicylates AdvReac Intermediate ELEVATED BP Verified 04/23/22 01:36 lactose AdvReac Abdominal Unverified 04/23/22 01:36 Pain Consultations 05/30/22 12:39 ED Decision to Admit Stat 05/30/22 15:47 Consult Pulmonology Routine 05/30/22 17:34 Consult Gastroenterology Routine Ordered Studies 05/30/22 10:51 CT angio chest PE protocol Stat Hospital Course (1) Pneumonia: (2) Chronic respiratory failure with hypoxia: (3) Moderate persistent asthma: (4) Diabetes mellitus with diabetic nephropathy: (5) CAD (coronary artery disease): Plan 86-year-old female with significant past medical history of T2DM, chronic diastolic CHF, CAD status post MELVI to LAD in 2009, chronic hypoxemic respiratory failure on 3L of O2 chronically, Moderate-persistent asthma, HTN, HLD, history of CVA, carotid artery stenosis, CKD stage III, cirrhosis, hiatal hernia, GERD, diabetic neuropathy, anxiety who presents to ED 05/30 secondary to chest pain x 1 day. In the ED, patient was saturating at 2 to 3 L of oxygen, normotensive and afebrile. CT angio chest was done which did not show any PE; found to have patchy bilateral airway opacities most pronounced in left upper lobe which were new. Pulmonology was consulted; patient was recommended to be started on airway clearance therapy with progressive chest vest, hypertonic saline and CoughAssist. She was treated with cefepime and Flagyl during the hospitalization; was changed to Levaquin as per recommendation by pulmonology. GI was also consulted during the hospitalization; recommended speech and swallow therapy. [employer] eval was done; patient was recommended to be on pured diet. Urine culture during the hospitalization was negative. On the day of the discharge, patient was saturating well at her baseline oxygen requirement of 2 to 3 L; she was alert oriented x3; not in any distress. Patient was discharged home with instructions to continue Levaquin for 5 more days. She was also p rescribed hypertonic saline and flutter valve for airway clearance. Her daughter was updated at the time of the discharge. Total Time Total Time Spent Total Time Spent (In Minutes): 45 Total Time Includes: Examination of the Patient, Discharge Planning, Medication Reconciliation, Communication With Other Providers and Other Discharge Plan Discharge Items Patient Disposition: Transfer Intermediate Fac Reason For Visit: PNEUMONIA Discharge Diagnosis: Aspiration pneumonia Activity: Resume your previous activity Non-emergency contact: Primary Care Provider Call non-emergency contact if: you have any medication questions, your symptoms worsen and you have a fever Follow-up/Referrals: Garcia Lira [Primary Care Provider] - Diet: Regular and Carb Consistent or DM2 Diet Texture: Pureed (blended smooth) Addtl Attending Provider Instructions: You are admitted to the hospital with pneumonia. Please follow the following recommendation: 1) take Levaquin 750 mg every 48 hours starting tomorrow for 3 doses. 2) use hypertonic saline nebulization twice daily along with DuoNeb for airway clearance 3) use flutter valve and CoughAssist for airway clearance 4) maintain aspiration precautions Follow-up with her primary care doctor next week. Pending Studies at Discharge: No Stand-Alone Forms: My [facility] Skilled Items Patient informed of condition?: No DNR: Yes Discharge Level of Care: Skilled Communicable Disease: No Discharge Prognosis: Stable Lines: None Urinary Catheter: No Medications and DC Order Prescriptions: New levofloxacin 750 mg Tablet 750 mg PO Q48H 5 Days Qty: 3 0RF sodium chloride 7 % Solution For Nebulization 4 ml NEB BIDR Qty: 120 0RF (DME) Flutter Valve Device See Rx Instructions .Route Qty: 1 0RF Rx Instructions: As directed Continued Antifungal Powd 2% 1 applic topical BID Rx Instructions: bilateral breasts and bilateral abdominal folds losartan 50 mg tablet 50 mg PO DAILY atorvastatin 40 mg tablet 40 mg PO HS buspirone 5 mg Tablet 5 mg PO AMHS metformin 500 mg tablet 500 mg PO QAM Rx Instructions: Take with breakfast ipratropium-albuterol 0.5 mg-3 mg(2.5 mg base)/3 mL Solution For Nebulization 3 ml INHALATION QID lidocaine 4 % adhesive patch,medicated 1 patch TOPICAL DAILY Rx Instructions: apply to coccyx, remove hs polyethylene glycol 3350 17 gram Powder In Packet 17 g PO HS Rx Instructions: Mix with 6 oz fluid melatonin 3 mg Tablet 3 mg PO HS allopurinol 100 mg tablet 100 mg PO DAILY omeprazole 40 mg capsule,delayed release(DR/EC) 40 mg PO DAILY Rx Instructions: before breakfast aspirin 81 mg Tablet,Delayed Release (Dr/Ec) 81 mg PO DAILY acetaminophen 500 mg tablet 500 mg PO QID isosorbide mononitrate 60 mg tablet extended release 24 hr 60 mg PO DAILY amlodipine 10 mg tablet 10 mg PO DAILY insulin aspart U-100 [Novolog U-100 Insulin aspart] 100 unit/mL solution 4 unit subcut PC Rx Instructions: Hold if eats more then 25%. ferrous sulfate 325 mg (65 mg iron) Tablet 325 mg PO AMHS metoprolol tartrate 50 mg tablet 50 mg PO BID Rx Instructions: with meals vitamin B complex Tablet 1 tab PO DAILY Rx Instructions: take @noon, gel cap montelukast 10 mg Tablet 10 mg PO HS furosemide 20 mg tablet 20 mg PO DAILY gabapentin 100 mg capsule 200 mg PO TID mineral oil-isopropyl myristat Lotion 1 applic TOPICAL BID Rx Instructions: Apply to dry skin on feet duloxetine 60 mg capsule,delayed release(DR/EC) 60 mg PO DAILY Rx Instructions: take with a 30 mg tab to = 90mg [place] Ultra Strength 4-30-10 % Cream 1 applic TOPICAL QID Rx Instructions: Apply to bilateral wrist Muscle Rub Ultra-Strength 4-30-10 % Cream 1 applic TOPICAL BID Rx Instructions: Apply to both shoulders & left knee Advair HFA 230-21 mcg/actuation HFA aerosol inhaler 1 puff INHALATION AMHS calcium carbonate-vitamin D3 [Calcium 600 + D(3)] 600 mg-10 mcg (400 unit) Tablet 1 tab PO DAILY Rx Instructions: vit d is 500units insulin glargine [Lantus Solostar U-100 Insulin] 100 unit/mL (3 mL) insulin pen 10 unit SUBCUT HS acetaminophen [Tylenol] 325 mg Tablet 650 mg PO Q4 PRN (Reason: Fever Or Pain) ondansetron HCl 4 mg Tablet 4 mg PO Q6H PRN (Reason: Nausea) meclizine 25 mg Tablet 25 mg PO Q8 PRN (Reason: .DIZZYNESS) nitroglycerin [Nitrostat] 0.4 mg Tablet, Sublingual 0.4 mg sublingual DIRECTED Rx Instructions: q 5 min prn x 3, if innefective call 911 albuterol sulfate 90 mcg/actuation Hfa Aerosol Inhaler 2 puff INHALATION QID PRN (Reason: Shortness Of Breath Or Wheezing) Rx Instructions: Give AM, AFTERNOON, PM & HS PRN. guaifenesin [Siltussin SA] 100 mg/5 mL Liquid 200 mg PO Q4H PRN (Reason: Cough) sucralfate [Carafate] 100 mg/mL suspension 10 ml PO QID Qty: 420 0RF Rx Instructions: swish in mouth and swallow; use after food/drink: May substitute tablets as a slurry. famotidine 20 mg tablet 20 mg PO BID Qty: 20 0RF Lactobacillus acidophilus 1 tab PO DAILY lanolin-mineral oil Lotion 1 applic TOPICAL DAILY Discontinued ciprofloxacin HCl 500 mg Tablet 500 mg PO BID Qty: 10 0RF Discharge Orders: Discharge Order (Routine); Ordered 06/02/22 Ordered By: David Veras Admission Data Admit Date/Time: 05/30/22 12:54 Attending Provider: David Veras Admit Provider: Carmelo Paredes Primary Care Provider: Garcia Lira Other Providers: Carmelo Paredes ; Manish Somers ; Jono Ramos ; Jah Snyder ; Lina Martino ; Anastasiia Thakkar ; Cristel Ryan ; Araseli Doe ; Angel Gomez ; Scotty Mcnally ; Alexx Davis ; Elizabeth Oscar ; Sotero Walter ; Margret Eduardo ; Radha Carey ; Lorelei Fine ; Maribel Marcelo ; Farooq Avila ; Patrick Kaufman ; Bandar Sykes ; Marisa Greene ; Yumiko Jackson Jr Other Interventions: Discharge Summary Assessment (RN) Last Done: 06/02/22 11:51
== END 2022-06-02 12:52 | DRG 178 ==
LOC: ED 09:08 → SUATTDRO 12:54 → EDINP 12:54 → 2W 13:32 → UNDODISIN 06-01 21:27